=== PATIENT | female | born 1970 | race Caucasian/White ===

== ENCOUNTER 2023-06-11 10:29 | Outpatient (OUT) | payer BC, SELFPAY ==
[2023-06-11 10:55] LABS: Basophils Percent Auto 1.1 % (0.2-2.0); Hematocrit 38.6 % (36.0-48.0); Hemoglobin 12.4 g/dL (12.0-16.0); Immature Granulocytes Abs Auto 0.01 10^3/uL (0.00-0.03); Immature Granulocytes Pct Auto 0.3 % (0.0-0.5); Lymphocytes Absolute Auto 1.7 10^3/uL (1.2-3.8); Lymphocytes Percent Auto 46.5 % (20.5-60.0); Mean Corpuscular HGB Conc 32.1 g/dL (29.9-35.2); Mean Corpuscular Hemoglobin 27.3 pg (26.7-34.0); Mean Platelet Volume 10.1 fL (9.5-13.5); Monocytes Absolute Auto 0.3 10^3/uL (0.3-0.8); Monocytes Percent Auto 8.9 % (1.7-12.0); Neutrophils Absolute Auto 1.6 10^3/uL (1.4-6.5); Neutrophils Percent Auto 43.2 % (43.0-75.0); Platelet Count 239 10^3/uL (150-450); Red Blood Count 4.54 10^6/uL (4.20-5.40); Red Cell Distribution Width 13.2 % (11.0-15.0); White Blood Count 3.7 10^3/uL (4.0-11.0)
[2023-06-11 12:09] LABS: Alanine Aminotransferase 33 U/L (14-59); Albumin Globulin Ratio 1.1; Albumin Level 3.7 g/dL (3.4-5.0); Alkaline Phosphatase 83 U/L (46-116); Anion Gap 11.2; Aspartate Amino Transferase 14 U/L (15-37); BUN Creatinine Ratio 26.2; Bilirubin Total 0.3 mg/dL (0.2-1.0); Calcium 8.9 mg/dL (8.5-10.1); Carbon Dioxide 31.2 mmol/L (21.0-32.0); Chloride 104 mmol/L (98-107); Cholesterol 159 mg/dL (<=200); Estimated GFR (African America >60 (>=60); Estimated GFR (Non-African Ame >60 (>=60); Free T3 3.42 pg/mL (2.18-3.98); Globulin 3.4 g/dL; Glucose 95 mg/dL (74-106); HDL Cholesterol 80 mg/dL (40-60); Potassium 4.4 mmol/L (3.5-5.1); Sodium 142 mmol/L (136-145); Thyroid Stimulating Hormone <0.007 uIU/mL (0.358-3.740); Total Protein 7.1 g/dL (6.4-8.2); Triglycerides 34 mg/dL (<=150); VLDL CHOLESTEROL 6.8 mg/dL
[2023-06-11 13:55] LABS: Estimated Average Glucose 117 mg/dL; Glycohemoglobin A1C 5.7 % (4.5-6.2)
== END 2023-06-11 10:30 | disposition home or self-care (01) ==
LOC: LAB 10:32
PROVIDERS: PCP Family Medicine; Visit Provider Family Medicine
DX: M79.10 Myalgia, unspecified site (principal)
CPT/HCPCS: 36415; 80053; 80061; 83036; 84436; 84443; 84481; 85025

== ENCOUNTER 2023-06-25 11:29 | Outpatient (OUT) | payer BC, SELFPAY ==
--- OUTSIDE RECORDS SUMMARY | 2023-06-25 11:33 | XMS_ITS | CCD ---
Author Name Unknown Address [address] [facility] [address] [place] [address] Organization [facility] Care Team Providers Care Blocker And Cutter Contact Lens Name Role Phone Gina Javier MD Primary Care Provider GINA JAVIER Primary Care Unavailable GINA JAVIER Referring Unavailable ELIAS, MEJIA H. Admitting Unavailable ELIAS, MEJIA H. Attending Unavailable ELIAS, MEJIA H. Attending Unavailable ELIAS, MEJIA H. Referring Unavailable GINA JAVIER Primary Care Unavailable GINA JAVIER Primary Care Unavailable ELIAS, MEJIA H. Referring Unavailable Gina Javier Primary Care Physician Santiago Cano Unavailable Sawyer Greer Unavailable MD Gina Javier Primary Care Provider MD Sawyer Greer Attending Provider DR GINA AVALOS Consulting Unavailable HOY ., DR FUENTES Primary Care Unavailable HOY ., DR FUENTES Admitting Unavailable HOY ., DR FUENTES Attending Unavailable ALE, DR IRENE Randolph Consulting Unavailable HOY ., DR FUENTES Primary Care Unavailable HOY ., DR FUENTES Admitting Unavailable HOY ., DR FUENTES Attending Unavailable HOY ., DR FUENTES Consulting Unavailable HOY ., DR FUENTES Primary Care Unavailable HOY ., DR FUENTES Admitting Unavailable HOY ., DR FUENTES Attending Unavailable BUZZ, DR ALE Sheppard Consulting Unavailable HOY ., DR FUENTES Consulting Unavailable HOY ., DR FUENTES Primary Care Unavailable HOY ., DR FUENTES Admitting Unavailable HOY ., DR FUENTES Attending Unavailable BUZZ, DR ALE Sheppard Consulting Unavailable HOY ., DR FUENTES Consulting Unavailable HOY ., DR FUENTES Primary Care Unavailable HOY ., DR FUENTES Admitting Unavailable HOY ., DR FUENTES Attending Unavailable Hoy, MD Gina M Primary Care Provider [phone] MD Edison Veronica II Attending Provider Edison Veronica II Unavailable MD Gina Javier Primary Care Provider [phone] MD Edison Veronica II Attending Provider [phone] MD Gina Javier Primary Care Provider [phone] MD Edison Veronica II Attending Provider [phone] Sawyer Greer Attending Unavailable Gina Javier Primary Care Unavailable Sawyer Greer Admitting Unavailable [place] II, Edison Teran Attending Unavailabl e Jeremías ERIKA, Edison Teran Admitting Unavailabl e Gina Javier Primary Care Unavailable [place] II, Edison Teran Admitting Unavailabl e Gina Javier Primary Care Unavailable [place] II, Edison Teran Attending Unavailabl e Gina Javier Primary Care Unavailable Jeremías II, Edison Teran Attending Unavailabl e Jeremías II, Edison Teran Admitting Unavailabl e [place] II, Edison Teran Admitting Unavailabl e Gina Javier Primary Care Unavailable [place] II, Edison Teran Attending Unavailabl e Jeremías II, Edison Teran Admitting Unavailabl e Gina Javier Primary Care Unavailable [place] II, Edison Teran Attending Unavailabl e Gina Javier Primary Care Unavailable [place] II, Edison Teran Admitting Unavailabl e Jeremías II, Edison Teran Attending Unavailabl e Gina Javier Primary Care Unavailable [place] ERIKA, Edison Teran Admitting Unavailabl e [place] II, Edison Teran Attending Unavailabl e Allergies Allergy Classification Reported Allergen(s) Allergy Type Date of Onset Reaction(s) Facility grepafloxacin (3 sources) grepafloxacin Drug Allergy 1 [employer] [facility] (10 sources) grepafloxacin; Translations: [grepafloxacin] Drug Allergy 1 Skin reaction (observable entity) General Surgery [place] (2 sources) grepafloxacin Drug Allergy [facility] (6 sources) Adhesive Tape; Translations: [adhesive tape] Propensity to adverse reactions 3 Itching [facility] (1 source) grepafloxacin Drug Allergy 3 [facility] Repository Medications Current Medications Medication Drug Class(es) Dates Sig (Normalized) Sig (Original) acetaminophen 325 mg / oxyCODONE hydrochloride 7.5 mg oral tablet (3 sources) Opioid Agonist Start: 11-19-2020 End: 12-30-2020 take 1 tablet by mouth every four hours as needed for pain oxyCODONE-acetami nophen (PERCOCET) 7.5-325 MG per tablet Indications: Post-op pain Take 1 tablet by mouth every 4 hours as needed for Pain for up to 41 days. 28 tablet 0 11/19/2020 12/30/2020 Active Start: 11-18-2020 take 1 tablet by demetrice th every six hours as needed for pain 1 tablet, Oral, EVERY 6 HOURS PRN, Pain Moderate (4-6), Starting on Tue11/18/20 at 1633 Maximum dose of acetaminophen is 4000 mg from all sources in 24 hours. ALPRAZolam 0.5 mg oral tablet (3 sources) Benzodiazepine Start: 08-24-2022 Xanax 0.5 MG 1 tablet 30 minutes prior to MRI and one tab at time of MRI as needed Orally as ordered August, Active amoxicillin 500 mg oral tablet (1 source) Penicillin-class Antibacterial Start: 03-17-2023 take 4 tablets by mouth every hour Amoxicillin 500 MG 4 tablets Orally 1 hour prior to procedure for 1 days Feb, Active aspirin 81 mg delayed release oral tablet (6 sources) Platelet Aggregation Inhibitor, Nonsteroidal Anti-inflammatory Drug Start: 01-27-2023 take 1 tablet by mouth every twelve hours Aspirin 81 81 MG 1 tablet Orally Twice a day for 35 days MED TO BED UPON DISCHARGE DOS: 01/31/23 Jan, Active Start: 01-27-2023 take 1 tablet by demetrice th twice daily Aspirin 81 81 MG 1 tablet Orally Twice a day for 35 days MED TO BED UPON DISCHARGE DOS: 01/31/23 Jan, Active atorvastatin 10 mg oral tablet (1 source) HMG-CoA Reductase Inhibitor Start: 11-18-2020 take 10 mg by mouth once daily 10 mg, Oral, NIGHTLY, First dose on Tue11/18/20 at 2100 Substituted for Simvastatin (ZOCOR). biotin 10 mg oral capsule (5 sources) Start: 01-20-2023 take 08883 ug by mouth once daily Biotin Active 19654 MCG PO Daily January 19, 2023 11:00pm ceFAZolin (ANCEF) 2000 mg in dextrose 5 % 100 mL IVPB (1 source) Start: 11-18-2020 End: 11-19-2020 2,000 mg, Intravenous, EVERY 8 HOURS, 3 doses, First dose on Tue11/18/20 at 1815, Last dose on Tue11/19/20 at 1200, Post-op cephalexin 500 mg oral capsule (3 sources) Cephalosporin Antibacterial Start: 11-19-2020 End: 11-26-2020 take 1 capsule by mouth every eight hours cephALEXin (KEFLEX) 500 MG capsule Take 1 capsule by mouth every 8 hours for 20 doses 20 capsule 0 11/19/2020 11/26/2020 Active Start: 11-19-2020 End: 11-25-2020 take 1 dose by mouth three times daily 500 mg, Oral, EVERY 8 HOURS SCHEDULED (3 times per day), First dose on Tue11/19/20 at 0600, For 20 doses diazePAM 5 mg oral tablet (20 sources) Benzodiazepine Start: 11-18-2020 End: 11-24-2020 take 1 tablet by mouth every six hours as needed for muscle spasms diazePAM (VALIUM) 5 MG tablet Indications: Muscle spasm Take 1 tablet by mouth every 6 hours as needed (Muscle spasms) for up to 5 days. 20 tablet 0 11/19/2020 11/24/2020 Active diazePAM 10 MG O ral for 1 Days Not-Taking/PRN diclofenac sodium 75 mg delayed release oral tablet (18 sources) Nonsteroidal Anti-inflammatory Drug Start: 01-20-2023 take 75 mg by mouth twice daily Diclofenac Sodium Active 75 MG PO Twice daily January 19, 2023 11:00pm doxepin hydrochloride 10 mg oral capsule (5 sources) Tricyclic Antidepressant Start: 01-20-2023 take 10 mg by mouth once daily at bedtime Doxepin Active 10 MG PO Daily at bedtime January 19, 2023 11:00pm 250 ml glucose 50 mg/ml / sodium chloride 4.5 mg/ml injection (1 source) Start: 11-18-2020 Intravenous, at 100 mL/hr, CONTINUOUS, Starting on Tue11/18/20 at 1815, Post-op 1 ml HYDROmorphone hydrochloride 1 mg/ml cartridge (2 sources) Opioid Agonist Start: 11-18-2020 End: 11-18-2020 take 0.5 mg by mouth every four hours as needed for pain 0.5 mg, Intravenous, EVERY 4 HOURS PRN, Pain Moderate (4-6), Starting on Tue11/18/20 at 1747 If oral and IV narcotics ordered, use oral first and only use IV if oral is ineffective or cannot take oral. Do Not give oral and IV within 1 hour of each other unless specifically ordered. irbesartan 150 mg oral tablet (20 sources) Angiotensin 2 Receptor Phill Start: 06-08-2021 take 150 mg by mouth once daily in the morning Irbesartan Active 150 MG PO Every morning January 19, 2023 11:00pm lansoprazole 30 mg Cap-DR (2 sources) Start: 06-08-2021 take 1 capsule by mouth once daily lansoprazole 30 mg Cap-DR 30 mg = 1 cap(s), Oral, Daily, Refills(s) 0 Start Date: 06/08/21 Status: Ordered losartan potassium 25 mg oral tablet (1 source) Angiotensin 2 Receptor Phill Start: 11-18-2020 take 25 mg by mouth once daily 25 mg, Oral, DAILY, First dose on Tue11/18/20 at 1815 Substituted for Irbesartan (AVAPRO). meloxicam 15 mg oral tablet (17 sources) Nonsteroidal Anti-inflammatory Drug Start: 02-01-2022 take 1 tablet by mouth every twenty-four hours Meloxicam 15 MG 1 tablet Orally Once a day for 30 day(s) Jan, Active Multiple Vitamins-Minerals (THERAPEUTIC MULTIVITAMIN-MINERA LS) tablet (2 sources) take 1 tablet by mouth once daily Multiple Vitamins-Minerals (THERAPEUTIC MULTIVITAMIN-MINE RALS) tablet Take 1 tablet by mouth daily 0 Active take 1 tablet by mouth once susan y Multiple Vitamins-Minerals (THERAPEUTIC MULTIVITAMIN-MINERALS) tablet Take 1 tablet by mouth daily 0 Suspended Multivitamin preparation (5 sources) Start: 01-20-2023 take 1 tablet by mouth once daily Multivitamin Active 1 TAB PO Daily January 19, 2023 11:00pm Start: 01-20-2023 take 1 tablet by demetrice th once daily Multivitamin Active 1 TAB PO Daily January 20, 2023 12:00am Promethazine (1 source) Phenothiazine Start: 11-18-2020 promethazine (PHENERGAN) tablet 12.5 mg Provitalize (5 sources) Start: 01-20-2023 take 1 dose by mouth once daily Provitalize Active 1 DOSE PO Daily January 19, 2023 11:00pm Start: 01-20-2023 take 1 dose by mouth once susan y Provitalize Active 1 DOSE PO Daily January 20, 2023 12:00am simvastatin 20 mg oral tablet (20 sources) HMG-CoA Reductase Inhibitor Start: 06-08-2021 take 20 mg by mouth once daily in the morning Simvastatin Active 20 MG PO Every morning January 19, 2023 11:00pm 3 ml sodium chloride 9 mg/ml injection (3 sources) Start: 11-18-2020 take 1 dose intravenously twice daily 5-40 mL, Intravenous, EVERY 12 HOURS SCHEDULED (2 times per day), First dose on Tue11/18/20 at 2100 For Line Patency: Peripheral IV = 5 mL; Midline or Central Line = 10 mL/lumen. &n bsp;If following IV push medication, administer flush at same rate as the IV push. Flush volume is determined by type of infusion therapy being given. &nbsp ;For non-viscous solutions use: Periphe ral IV = 5 mL Midline or Central Line = 10 mL/lumen &nb sp;For viscous solutions (i.e. blood components, parenteral nutrition, contrast media, or after obtaining blood sample) use: Periphe ral IV = 10 mL Midline or Central Line = 20 mL/lumen Post-op Start: 11-18-2020 take 25 mL intraveno usly every hour as needed 25 mL, Intravenous, at 100 mL/hr, PRN, If patient receiving piggyback infusions without ordered maintenance IV fluids or with frequent/long duration piggyback infusions, Starting on Tue11/18/20 at 1747 Administer at the same rate as the piggyback being infused. Post-op Start: 11-18-2020 take 5-40 mL intravenously onc e 5-40 mL, Intravenous, PRN, Line Care, Starting on Tue11/18/20 at 1747 After every IV line use Post-op SUMAtriptan 100 mg oral tablet (20 sources) Serotonin-1b and Serotonin-1d Receptor Agonist Start: 06-08-2021 take 1 tablet by mouth once Sumatriptan Succinate (Imitrex) 100 mg Tablet Active 100 MG PO Once January 19, 2023 11:00pm Tirzepatide (5 sources) Start: 01-20-2023 Tirzepatide (Mounjaro) 5 mg/0.5 mL pen injector Active 5 MG SUBCUT every week January 19, 2023 11:00pm tuesdays Start: 01-20-2023 Tirzepatide (M ounjaro) 5 mg/0.5 mL pen injector Active 5 MG SUBCUT every week January 20, 2023 12:00am tuesdays Completed/Discontinued Medications Medication Drug Class(es) Dates Sig (Normalized) Sig (Original) 0.5 ML tirzepatide 5 MG/ML Auto-Injector [Mounjaro] (11 sources) Mounjaro 2.5 MG/ 0.5ML as directed Subcutaneous Not-Taking Mounjaro 2.5 MG/ 0.5ML as directed Subcutaneous Active acetaminophen 500 mg oral tablet (20 sources) Start: 01-27-2023 take 2 tablets by mouth every eight hours as needed for pain Acetaminophen 500 MG 2 tablets for pain Orally every 8 hrs for 30 days MED TO BED UPON DISCHARGE DOS: 01/31/23 Jan, Not-Taking/PRN Start: 01-20-2023 take 2 capsules by m out every six hours Acetaminophen (Tylenol Extra Strength) 500 mg Capsule Active 1000 MG PO Q6H January 19, 2023 11:00pm take 1 capsule by mo ut every six hours Acetaminophen 500 MG 1 capsule as needed Orally every 6 hrs Active take 2 tablets by mo ut every six hours as needed for pain acetaminophen (TYLENOL) 500 MG tablet Take 1,000 mg by mouth every 6 hours as needed for Pain 0 Active calcium chloride 0.0014 meq/ml / potassium chloride 0.004 meq/ml / sodium chloride 0.103 meq/ml / sodium lactate 0.028 meq/ml injectable solution (1 source) Start: 11-18-2020 End: 11-18-2020 lactated ringers infusion cefadroxil 500 mg oral capsule (6 sources) Cephalosporin Antibacterial Start: 01-27-2023 take 1 capsule by mouth every twelve hours Cefadroxil 500 MG 1 tablet Orally every 12 hrs for 7 days MED TO BED UPON DISCHARGE DOS: 01/31/23 Jan, Not-Taking/PRN celecoxib 200 mg oral capsule (6 sources) Nonsteroidal Anti-inflammatory Drug Start: 01-27-2023 take 1 capsule by mouth every twelve hours Celecoxib 200 MG 1 capsule with food Orally Twice a day for 30 days MED TO BED UPON DISCHARGE DOS: 01/31/23 Jan, Not-Taking/PRN docusate sodium 50 mg / sennosides, jail 8.6 mg oral tablet (9 sources) Start: 01-27-2023 take 2 tablets by mouth every twenty-four hours Senokot S 8.6-50 MG 2 tablets Orally Once a day for 30 days MED TO BED UPON DISCHARGE DOS: 01/31/23 Jan, Not-Taking/PRN Start: 11-18-2020 End: 11-29-2020 take 1 tablet by mouth twice daily sennosides-docusate sodium (SENOKOT-S) 8.6-50 MG tablet Take 1 tablet by mouth 2 times daily for 10 days 20 tablet 0 11/19/2020 11/29/2020 Active 2 ml fentaNYL 0.05 mg/ml injection (1 source) Opioid Agonist Start: 11-18-2020 End: 11-18-2020 fentaNYL (SUBLIMAZE) injection 50 mcg lansoprazole 30 mg delayed release oral capsule (20 sources) Proton Pump Inhibitor Lansoprazole 30 MG Oral for 90 Days Not-Taking/PRN LANSOPRAZOLE PO Take 30 mg by mouth 0 Active methylPREDNISolone 4 mg oral tablet (5 sources) Corticosteroid Start: 02-10-2023 methylPREDNISolone 4 MG as directed Orally for 6 days Jan, Not-Taking/PRN morphine sulfate 15 mg extended release oral tablet (6 sources) Opioid Agonist Start: 01-27-2023 take 1 tablet by mouth every twelve hours as needed for pain Morphine Sulfate ER 15 MG 1 tablet for breakthrough pain only Orally every 12 hrs for 5 days MED TO BED UPON DISCHARGE DOS: 01/31/23 Jan, Not-Taking/PRN mounjaro 2.5 mg/0.5ml solution pen-injector (1 source) Mounjaro 2.5 MG/ 0.5ML as directed Subcutaneous Not-Taking/PRN ondansetron 8 mg oral tablet (6 sources) Serotonin-3 Receptor Antagonist Start: 01-27-2023 take 1 tablet by mouth three times daily as needed for nausea Ondansetron HCl 8 MG 1 tablet as needed for nausea Orally Three times a day for 10 days MED TO BED UPON DISCHARGE DOS: 01/31/23 Jan, Not-Taking/PRN oxyCODONE hydrochloride 5 mg oral tablet (6 sources) Opioid Agonist Start: 01-27-2023 take 1 tablet by mouth every four hours as needed for pain oxyCODONE HCl 5 MG 1 tablet as needed for pain Orally every 4 hrs for 10 days MED TO BED UPON DISCHARGE DOS: 01/31/23 Jan, Not-Taking/PRN pantoprazole 20 mg delayed release oral tablet (6 sources) Proton Pump Inhibitor Start: 01-27-2023 take 1 tablet by mouth every twenty-fou r hours Protonix 20 MG 1 tablet Orally Once a day for 35 days MED TO BED UPON DISCHARGE DOS: 01/31/23 Jan, Not-Taking/PRN phentermine hydrochloride 37.5 mg oral capsule (12 sources) Sympathomimetic Amine Anorectic take 1 capsule by mouth every twenty-fou r hours Adipex-P 37.5 MG 1 capsule Orally Once a day Not-Taking/PRN polyethylene glycol 3350 79192 mg powder for oral solution (7 sources) Osmotic Laxative Start: 01-27-2023 MiraLax 17 GM 1 packet mixed with 8 ounces of fluid Orally Once a day for 7 days MED TO BED UPON DISCHARGE DOS: 01/31/23 Jan, Not-Taking/PRN Start: 11-18-2020 17 g, Oral, DA AMBROSE, First dose on Tue11/18/20 at 1815, Post-op traMADol hydrochloride 50 mg oral tablet (15 sources) Opioid Agonist Start: 01-27-2023 take 1 tablet by mouth every six hours as needed for pain traMADol HCl 50 MG 1 tablet as needed for pain Orally every 6 hrs for 10 days MED TO BED UPON DISCHARGE DOS: 01/31/23 Jan, Not-Taking/PRN Start: 12-16-2022 take 1 tablet by demetrice th twice daily as needed traMADol HCl 50 MG 1 tablet as needed Orally up to twice daily as needed for 15 days Nov, Not-Taking/PRN Problems Active Problems Problem Classification Problem Date Documented Date Episodic/Chronic Abdominal hernia (8 sources) Inguinal hernia; Translations: [Unilateral inguinal hernia, without obstruction or gangrene, not specified as recurrent] Onset: 07-10-2021 Episodic Anxiety disorders (2 sources) Anxiety 06-08-2021 Chronic Asthma (2 sources) Asthma 06-08-2021 Chronic Diabetes mellitus without complication (2 sources) Diabetes mellitus 06-08-2021 Chronic Disorders of lipid metabolism (2 sources) Hyperlipidemia 06-08-2021 Chronic Essential hypertension (2 sources) Hypertensive disorder 06-08-2021 Chronic Headache; including migraine (2 sources) Migraine without aura 06-08-2021 Chronic Osteoarthritis (20 sources) Arthropathy of left hip joint; Translations: [Unilateral primary osteoarthritis, left hip] Chronic Osteoporosis (9 sources) Primary osteoporosis; Translations: [Age-related osteoporosis without current pathological fracture] Onset: 12-24-2022 Chronic Other aftercare (5 sources) Patient encounter status; Translations: [Aftercare following joint replacement surgery] Chronic Other aftercare (4 sources) Aftercare following joint replacement surgery Chronic Other connective tissue disease (5 sources) Hip joint prosthesis present; Translations: [Presence of left artificial hip joint] Chronic Other connective tissue disease (5 sources) History of total hip arthroplasty; Translations: [Presence of left artificial hip joint] Chronic Other connective tissue disease (9 sources) Presence of left artificial hip joint; Translations: [Presence of left artificial hip joint] Onset: 03-17-2023 Chronic Other connective tissue disease (1 source) Spasm; Translations: [Other muscle spasm] Episodic Other connective tissue disease (18 sources) Trochanteric bursitis; Translations: [Trochanteric bursitis, left hip] Episodic Other connective tissue disease (6 sources) Trochanteric bursitis, left hip Episodic Other connective tissue disease (1 source) Arthrodesis status Episodic Other nervous system disorders (3 sources) Spinal cord compression; Translations: [Unspecified cord compression] Onset: 11-18-2020 Chronic Other nervous system disorders (17 sources) Chronic pain; Translations: [Other chronic pain] Chronic Other nervous system disorders (6 sources) Other chronic pain Chronic Other nervous system disorders (1 source) Postoperative pain ; Translations: [Other acute postprocedural pain] Episodic Other non-traumatic joint disorders (14 sources) Arthralgia of the pelvic region and thigh; Translations: [Pain in left hip] Episodic Other non-traumatic joint disorders (4 sources) Pain in left hip Episodic Other nutritional; endocrine; and metabolic disorders (2 sources) Body mass index 30+ - obesity 06-10-2021 Chronic Other screening for suspected conditions (not mental disorders or infectious disease) (4 sources) Encounter for screening mammogram for malignant neoplasm of breast; Translations: [ENC SCR MAMMO MALIG NEOPLASM BREAST] Onset: 09-09-2022 Episodic Other skin disorders (2 sources) Alopecia areata 06-08-2021 Episodic Residual codes; unclassified (2 sources) Sleep apnea 06-08-2021 Chronic Residual codes; unclassified (2 sources) Pain; Translations: [Pain, unspecified] Episodic Residual codes; unclassified (1 source) Family history of leukemia; Translations: [FAMILY HISTORY OF LEUKEMIA] Onset: 09-12-2022 Episodic Spondylosis; intervertebral disc disorders; other back problems (20 sources) Cervical spondylosis with myelopathy; Translations: [Other spondylosis with myelopathy, cervical region] Onset: 11-27-2021 Chronic Unclassified (1 source) Presence of left artificial hip joint; Translations: [Presence of left artificial hip joint] Onset: 04-20-2023 Unclassified (1 source) Aftercare following joint replacement surgery; Translations: [Aftercare following joint replacement surgery] Onset: 03-17-2023 Unclassified (1 source) Encounter for preprocedural laboratory examination; Translations: [Encounter for preprocedural laboratory examination] Onset: 01-20-2023 Unclassified (1 source) Unilateral primary osteoarthritis, left hip; Translations: [Unilateral primary osteoarthritis, left hip] Onset: 12-24-2022 Unclassified (1 source) Pain in left hip; Translations: [Pain in left hip] Onset: 09-03-2022 Past or Other Problems Problem Classification Problem Date Documented Da te Episodic/Chronic Other aftercare (2 sources) Other halfway (current) drug therapy; Translations: [Other halfway (current) drug therapy] Onset: 12-24-2022 Episodic Spondylosis; intervertebral disc disorders; other back problems (8 sources) Spinal stenosis in cervical region; Translations: [Spinal stenosis, cervical region] Onset: 12-24-2021 Episodic Unclassified (1 source) Other low back pain M54.59 Results Test Name Value Interpretation Reference Range Facility XR hip LT min 2V(w/wo pelvis )*on 04-20-2023 XR hip LT min 2V(w/wo pelvis)* [facility] Other XR hip LT min 2V(w/wo pelvis)* [facility] Other XR hip LT min 2V(w/wo pelvis)* [address] [place] [address] [facility] Other XR hip LT min 2V(w/wo pelvis)* [place] [id number] [facility] Other XR hip LT min 2V(w/wo pelvis)* XRay Report [facility] Other XR hip LT min 2V(w/wo pelvis)* Signed [facility] Other XR hip LT min 2V(w/wo pelvis)* Patient: Ana Palmer MR#: [id number] [facility] Other XR hip LT min 2V(w/wo pelvis)* : 1970 Acct:[id number] [facility] Other XR hip LT min 2V(w/wo pelvis)* Age/Sex: 52 / F ADM Date: 04/20/23 [facility] Other XR hip LT min 2V(w/wo pelvis)* Loc: [facility] Room: Type: [facility] Other XR hip LT min 2V(w/wo pelvis)* Attending Dr: Edison Veronica II, MD [facility] Other XR hip LT min 2V(w/wo pelvis)* Copies to: Edison Veronica MD [facility] Other XR hip LT min 2V(w/wo pelvis)* Ordering Provider: Edison Veronica MD [facility] Other XR hip LT min 2V(w/wo pelvis)* Date of Service: 04/20/23 [facility] Other XR hip LT min 2V(w/wo pelvis)* XR/XR hip LT min 2V(w/wo pelvis)*: S/P total left hip arthroplasty [facility] Other XR hip LT min 2V(w/wo pelvis)* AP PELVIS AND LEFT HIP - 2 views: [facility] Other XR hip LT min 2V(w/wo pelvis)* CLINICAL HISTORY: Follow-up left hip replacement [facility] Other XR hip LT min 2V(w/wo pelvis)* COMPARISON: 03/17/2023 [employer] Other XR hip LT min 2V(w/wo pelvis)* AP view of the pelvis and crosstable lateral view of the left hip were obtained. A left hip [facility] Other XR hip LT min 2V(w/wo pelvis)* prosthesis is again visualized. The hardware appears intact and unchanged from the prior. There is [facility] Other XR hip LT min 2V(w/wo pelvis)* no developing fracture or dislocation. There is minor sclerosis at the SI joints. There are no [facility] Other XR hip LT min 2V(w/wo pelvis)* significant soft tissue abnormalities. [facility] Other XR hip LT min 2V(w/wo pelvis)* XR/XR hip LT min 2V(w/wo pelvis)* [facility] Other XR hip LT min 2V(w/wo pelvis)* IMPRESSION: [facility] Other XR hip LT min 2V(w/wo pelvis)* STABLE LEFT HIP REPLACEMENT [facility] Other XR hip LT min 2V(w/wo pelvis)* Impression dictated by: Radha Godinez M.D.04/20/2023 11:47 AM [facility] Other XR hip LT min 2V(w/wo pelvis)* Dictation Location: [place] [address] [facility] Other XR hip LT min 2V(w/wo pelvis)* Transcribed By: SAAD 04/20/23 1147 [facility] Other XR hip LT min 2V(w/wo pelvis)* Dictated By: Radha Godinez MD 04/20/23 114 [facility] Other XR hip LT min 2V(w/wo pelvis)* Signed By: [facility] Other XR hip LT min 2V(w/wo pelvis)* 04/20/23 1145 [facility] Other XR hip LT min 2V(w/wo pelvis)* [place] [facility] Main [place] [address] [place] [address] XRay Report Signed Patient: Ana Palmer MR#: [id number] : 1970 Acct:[id number] Age/Sex: 52 / F ADM Date: 04/20/23 Loc: [facility] Room: Type: [facility] Attending Dr: Edison Veronica II, MD Copies to: Edison Veronica MD Ordering Provider: Edison Veronica MD Date of Service: 04/20/23 XR/XR hip LT min 2V(w/wo pelvis)*: S/P total left hip arthroplasty AP PELVIS AND LEFT HIP - 2 views: CLINICAL HISTORY: Follow-up left hip replacement COMPARISON: 03/17/2023 AP view of the pelvis and crosstable lateral view of the left hip were obtained. A left hip prosthesis is again visualized. The hardware appears intact and unchanged from the prior. There is no developing fracture or dislocation. There is minor sclerosis at the SI joints. There are no significant soft tissue abnormalities. XR/XR hip LT min 2V(w/wo pelvis)* IMPRESSION: STABLE LEFT HIP REPLACEMENT Impression dictated by: Radha Godinez M.D.04/20/2023 11:47 AM Dictation Location: RADIO-PC-10 Transcribed By: SAAD 04/20/23 1147 Dictated By: Radha Godinez MD 04/20/23 1146 Signed By: 04/20/23 1147 [facility] XR hip LT min 2V(w/wo pelvis )*on 03-17-2023 XR hip LT min 2V(w/wo pelvis)* [facility] [place] [address] XRay Report Signed Patient: Ana Palmer MR#: [id number] : 1970 Acct:[id number] Age/Sex: 52 / F ADM Date: 03/17/23 Loc: [facility] Room: Type: [facility] Attending Dr: Edison Veronica II, MD Copies to: Edison Veronica MD Ordering Provider: Edison Veronica MD Date of Service: 03/17/23 XR/XR hip LT min 2V(w/wo pelvis)*: Aftercare following joint replacement surgery;Presence of le 2 views left hip with single view pelvis plain film COMPARISON: 01/31/2023 HISTORY: Status post left total hip arthroplasty ACUTE FINDINGS: None DEGENERATIVE CHANGE: Unremarkable SOFT TISSUE FINDINGS: Unremarkable JOINT EFFUSION: None POSTOP CHANGES: Uncomplicated left hip arthroplasty. No hardware failure. BONY MINERALIZATION: Adequate XR/XR hip LT min 2V(w/wo pelvis)* IMPRESSION: Uncomplicated left hip arthroplasty. Impression dictated by: Wes Serrano M.D.03/17/2023 1:05 PM Dictation Location: RADIO-PC-12 Transcribed By: SAAD 03/17/23 1305 Dictated By: Wes Serrano DO 03/17/23 1304 Signed By: 03/17/23 1305 [facility] ABO/Rh Retypeon 01-31-2023 ABO/RH Recheck Result Positive Normal [facility] Comment on above: Result Comment: PERF ORMED BY: [address] [place] [address] JUDGE ERIC ABDI M.D. Glucose Glucometer (BldC) [M ass/Vol]Ordered By: Edison Veronica on 01-31-2023 Glucose [Mass/Vol] 179 mg/dL [facility] Comment on above: Random Glucose Refer ence Range is dependent on time and content of last meal. Glucose of more than 200 mg/dL in a nonstressed, ambulatory subject supports the diagnosis of Diabetes Mellitus. Glucose Poct Glucometerson 1 Glucose [Mass/Vol] 179 mg/dL Normal [facility] Comment on above: Result Comment: [facility] om Glucose Reference Range is dependent on time and content of last meal. Glucose of more than 200 mg/dL in a nonstressed, ambulatory subject supports the diagnosis of Diabetes Mellitus. PERFORMED BY: [facility] [address] [facility] [place] [address] JUD[address] ERIC ABDI M.D. Performed By: #### G RIA ####Point of Care testing, Cristóbal 01-31-2023 L ------ Specimen: [id number] Received: 02/01/23 Status: ABRAN Kev Num: [id number] Spec Type: Surgical Subm Dr: Edison Veronica MD Tissues: A Femoral Head - Other than Fracture (LT HIP) Procedures: HE/2, Gross/Micro L3, Decalcification Age/ Patient Sex Location Account Attending Physician Ana Palmer 52/F MD [id number] Edison Veronica MD SPEC NUM: [id number] RECD: 02/01/23 STATUS: ABRAN ANGULO NUM: [id number] CHANO: 01/31/23 [facility] DR: Edison Veronica MD ENTERED: 02/01/[address]: BRITTON TYPE: Surgical DEPT: S ORDERED: HE/2, Gross/Micro L3, Decalcification ORDERED: HE/2, Gross/Micro L3, Decalcification Pathological Diagnosis Left hip, bone and tissue, total hip arthroplasty: - Bone trabeculae and marrow spaces with areas of necrosis, granulation tissue, fibrosis and degenerative changes - Focal areas of reactive bone formation - Cartilage with degenerative changes Clinical Information DJD left hip, 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 The femoral head has a smooth to granular leavitt-hernández articular surface from which articular cartilage has been previously partially removed. The cut surface is softened, leavitt-red, trabecular. Chief Construction Inspector sections are submitted in two cassettes labeled A1-A2. Specimen: [id number] Received: 02/01/23 Status: ABRAN Angulo Num: [id number] Spec Type: Surgical Subm Dr: Edison Veronica MD Tissues: A Femoral Head - Other than Fracture (LT HIP) Procedures: HE/2, Gross/Micro L3, Decalcification Patient: Ana Palmer Jeffry [id number] (Continued) Specimen: [id number] Received: 02/01/23 (Continued) Signed (signature on file) Luiz Degroot MD 02/03/23 1349 Specimen: [id number] Received: 02/01/23 Status: ABRAN Angulo Num: [id number] Spec Type: Surgical Subm Dr: Edison Veronica MD Tissues: A Femoral Head - Other than Fracture (LT HIP) Procedures: HE/2, Gross/Micro L3, Decalcification Patient: Ana Palmer [id number] (Continued) Specimen: [id number] Received: 02/01/23 (Continued) Microscopic Description Two H E slides reviewed. The microscopic examination confirms the diagnosis. CPT Codes 27386, 15232 Specimen: [id number] Received: 02/01/23 Status: ABRAN Angulo Num: [id number] Spec Type: Surgical Subm Dr: Edison Veronica MD Tissues: A Femoral Head - Other than Fracture (LT HIP) Procedures: HE/2, Gross/Micro L3, Decalcification Patient: Ana Palmer [id number] (Continued) Signed (signature on file) Luiz Degroot MD 02/03/23 1349 [facility] XR hip LT 1Von 01-31-2023 XR hip LT 1V [place] [address] XRay Report Signed Patient: Ana Palmer MR#: [id number] : 1970 Acct:[id number] Age/Sex: 52 / F ADM Date: 01/31/23 Loc: MD Room: Type: [facility] Attending Dr: Edison Veronica II, MD Copies to: Edison Veronica MD Ordering Provider: Edison Veronica MD Date of Service: 01/31/23 XR/XR hip LT 1V: LT ANTIEROR HIP XR hip LT 1V 01/31/2023 3:50 PM SIGNS AND SYMPTOMS: Left hip arthroplasty PROTOCOL: Intraoperative views of the left hip COMPARISON: 01/31/2023 FINDINGS: Intraoperative views demonstrate total left hip arthroplasty hardware placement. Cumulative Air Kerma in mGy: 3.78 mGy XR/XR hip LT 1V IMPRESSION: Intraoperative views demonstrate total left hip arthroplasty hardware placement. Impression dictated by: Reggie Vallejo M.D.01/31/2023 5:14 PM Dictation Location: RADIO--07 Transcribed By: SAAD 01/31/231713 Dictated By: Reggie Vallejo II, MD 01/31/231711 Signed By: 01/31/231713 Normal [facility] XR low pelvis w/LT x-table h ipon 01-31-2023 XR low pelvis w/LT x-table hip [facility] [place] [address] XRay Report Signed Patient: Ana Palmer MR#: [id number] : 1970 Acct:[id number] Age/Sex: 52 / F ADM Date: 01/31/23 Loc: MD Room: Type: [facility] Attending Dr: Edison Veronica II, MD Copies to: Edison Veronica MD Ordering Provider: Edison Veronica MD Date of Service: 01/31/23 XR/XR low pelvis w/LT x-table hip: Total Hip, due in PACU XR low pelvis w/LT x-table hip 01/31/2023 2:01 PM SIGNS AND SYMPTOMS: Total Hip, due in PACU Must include entire prosthesis reshoot if necessar PROTOCOL: Frontal radiograph the pelvis with crosstable lateral view of the left hip COMPARISON: 12/24/2022 FINDINGS: Total left hip arthroplasty hardware has been placed in the interval. There is no hardware complication or malalignment. No fracture or dislocation. The bony ring of the pelvis is intact. XR/XR low pelvis w/LT x-table hip IMPRESSION: Interval total left hip arthroplasty hardware. No fracture or hardware complication. Impression dictated by: Reggie Vallejo M.D.01/31/2023 5:10 PM Dictation Location: RADIO-[employer]-07 Transcribed By: SAAD 01/31/231709 Dictated By: Reggie Vallejo II, MD 01/31/231708 Signed By: 01/31/231709 Normal [facility] Automated erythrocytes count in urine sediment (number/area)Ordered By: Edison Veronica on 01-20-2023 RBC Auto (Urine sed) [#/Area] None seen [HPF] 0-4 [facility] Automated leukocytes count i n urine sediment (number/area)Ordered By: Edison Veronica on 01-20-2023 WBC Auto (Urine sed) [#/Area] 3-4 [HPF] 0-4 [facility] Basic Metabolic Panelon Anion gap [Moles/Vol] 11.3 mmol/L Normal 6.0-15.0 [facility] Comment on above: Performed By: #### F RUC ####[facility] ,#### CBC, BMP ####[place] [address] Calcium [Mass/Vol] 9.2 mg/dL Normal 8.6-10.3 [facility] Comment on above: Result Comment: PERF ORMED BY: [facility] [address] [place] [address] JUDGE ERIC ABDI M.D. Performed By: #### F RUC ####[facility] ,#### CBC, BMP ####[place] [address] [place] [id number] [place] Chloride [Moles/Vol] 103 mmol/L Normal 98-107 [facility] Comment on above: Performed By: #### F RUC ####[facility] ,#### CBC, BMP ####[facility] [address] [place] [id number] [place] CO2 [Moles/Vol] 29.0 mmol/L Normal 21.0-31.0 [facility] Comment on above: Performed By: #### F RUC ####[facility] ,#### CBC, BMP ####[facility] [place] [address] [place] Creatinine [Mass/Vol] 0.67 mg/dL Normal 0.60-1.20 [facility] Comment on above: Performed By: #### F RUC ####[facility] ,#### CBC, BMP ####[address] [address] [place] GFR/1.73 sq M.predicted MDRD (S/P/Bld) [Vol rate/Area] mL/min/{1.73_m2} Normal [facility] Comment on above: Performed By: #### F RUC ####[facility] ,#### CBC, BMP ####[address] [address] [facility] Glucose [Mass/Vol] 149 mg/dL High 70-100 [facility] Comment on above: Result Comment: [facility] Glucose Reference Range is dependent on time and content of last meal. Glucose of more than 200 mg/dL in a nonstressed, ambulatory subject supports the diagnosis of Diabetes Mellitus. ADA recommended reference range Performed By: #### F RUC ####[facility] ,#### CBC, BMP ####[address] [address] [place] Potassium [Moles/Vol] 4.3 mmol/L Normal 3.5-5.1 [facility] Comment on above: Performed By: #### F RUC ####[facility] ,#### CBC, BMP ####[address] [address] [place] Sodium [Moles/Vol] 139 mmol/L Normal 136-145 [facility] Comment on above: Performed By: #### F RUC ####[facility] ,#### CBC, BMP ####[address] [address] [place] Urea nitrogen [Mass/Vol] 16 mg/dL Normal 7-25 [facility] Comment on above: Performed By: #### F RUC ####[facility] ,#### CBC, BMP ####[facility] [address] [place] [address] [facility] Basophils Auto (Bld) [#/Vol] Ordered By: Edison Veronica on 01-20-2023 Basophils (Bld) [#/Vol] 0.0 10*3/uL 0.0-0.2 [facility] Basophils/100 WBC Auto (Bld) Ordered By: Edison Veronica on 01-20-2023 Basophils/100 WBC (Bld) 1.0 % . [facility] Bilirubin Test strip Ql (U)O rdered By: Edison Veronica on 01-20-2023 Bilirubin Ql (U) Negative Negative [facility] Calcium [Mass/volume] in Ser um or PlasmaOrdered By: Edison Veronica on 01-20-2023 Calcium [Mass/Vol] 9.2 mg/dL 8.6-10.3 [facility] Carbon dioxide, total [Moles /volume] in Serum or PlasmaOrdered By: Edison Veronica on 01-20-2023 CO2 [Moles/Vol] 29.0 mmol/L 21.0-31.0 [facility] Chloride [Moles/volume] in S sima or PlasmaOrdered By: Edison Veronica on 01-20-2023 Chloride [Moles/Vol] 103 mmol/L 98-107 [facility] Color Auto (U)Ordered By: Lilian Veronica on 01-20-2023 Color (U) Yellow Yellow [facility] Complete Blood Count Auto Di ffon 01-20-2023 Basophils (Bld) [#/Vol] 0.0 10*3/uL Normal 0.0-0.2 [facility] Comment on above: Result Comment: PERF ORMED BY: [facility] [address] [place] [address] JUD[address] ERIC ABDI M.D. Performed By: #### F RUC ####[facility] ,#### CBC, BMP ####[address] Basophils/100 WBC (Bld) 1.0 % Normal . [facility] Comment on above: Performed By: #### F RUC ####[facility] ,#### CBC, BMP ####[address] Eosinophils (Bld) [#/Vol] 0.0 10*3/uL Normal 0.0-0.45 [facility] Comment on above: Performed By: #### F RUC ####[facility] ,#### CBC, BMP ####[address] Eosinophils/100 WBC (Bld) 0.0 % Normal . [facility] Comment on above: Performed By: #### F RUC ####[facility] ,#### CBC, BMP ####[address] Erythrocyte distribution width (RBC) [Ratio] 14.0 % Normal 11.9-15.3 [facility] Comment on above: Performed By: #### F RUC ####[facility] ,#### CBC, BMP ####[address] Hematocrit (Bld) [Volume fraction] 36.6 % Normal 34.0-46.4 [facility] Comment on above: Performed By: #### F RUC ####[facility] ,#### CBC, BMP ####[address] Hemoglobin (Bld) [Mass/Vol] 12.3 g/dL Normal 11.8-15.4 [facility] Comment on above: Performed By: #### F RUC ####[facility] ,#### CBC, BMP ####[address] Lymphocytes (Bld) [#/Vol] 1.3 10*3/uL Normal 1.00-4.8 [facility] Comment on above: Performed By: #### F RUC ####[facility] ,#### CBC, BMP ####[address] Lymphocytes/100 WBC (Bld) 36.7 % Normal . [facility] Comment on above: Performed By: #### F RUC ####[facility] ,#### CBC, BMP ####[address] MCH (RBC) [Entitic mass] 27.3 pg Normal 24.7-34.3 [facility] Comment on above: Performed By: #### F RUC ####[facility] ,#### CBC, BMP ####[address] MCV (RBC) [Entitic vol] 81.4 fL Normal 80-100 [facility] Comment on above: Performed By: #### F RUC ####[facility] ,#### CBC, BMP ####[address] Mean Corpuscular HGB Conc 33.5 g/dL Normal 32.0-35.0 [facility] Comment on above: Performed By: #### F RUC ####[facility] ,#### CBC, BMP ####[address] Monocytes (Bld) [#/Vol] 0.3 10*3/uL Normal 0.0-0.8 [facility] Comment on above: Performed By: #### F RUC ####[facility] ,#### CBC, BMP ####[address] [address] [facility] Monocytes/100 WBC (Bld) 7.2 % Normal . [facility] Comment on above: Performed By: #### F RUC ####[facility] ,#### CBC, BMP ####[address] [address] [facility] Neutrophils (Bld) [#/Vol] 2.0 10*3/uL Normal 1.8-7.7 [facility] Comment on above: Performed By: #### F RUC ####[facility] ,#### CBC, BMP ####[address] Neutrophils/100 WBC (Bld) 55.1 % Normal . [facility] Comment on above: Performed By: #### F RUC ####[facility] ,#### CBC, BMP ####[address] NRBC% 0.1 /100{WBC} Normal 0-0.5 [facility] Comment on above: Performed By: #### F RUC ####[facility] ,#### CBC, BMP ####[address] [address] [facility] Platelet mean volume (Bld) [Entitic vol] 8.2 fL Normal 6.3-10.7 [facility] Comment on above: Performed By: #### F RUC ####[facility] ,#### CBC, BMP ####[address] [address] [place] Platelets (Bld) [#/Vol] 248 10*3/uL Normal 150-450 [facility] Comment on above: Performed By: #### F RUC ####[facility] ,#### CBC, BMP ####[address] [place] [address] [facility] RBC (Bld) [#/Vol] 4.50 10*6/uL Normal 3.60-5.00 [facility] Comment on above: Performed By: #### F RUC ####[facility] ,#### CBC, BMP ####[address] [address] [facility] WBC (Bld) [#/Vol] 3.5 10*3/uL Low 3.8-11.6 [facility] Comment on above: Performed By: #### F RUC ####[facility] ,#### CBC, BMP ####[address] [address] [facility] Creatinine [Mass/volume] in Serum or PlasmaOrdered By: Edison Veronica on 01-20-2023 Creatinine [Mass/Vol] 0.67 mg/dL 0.60-1.20 [facility] Dipstick and Microscopicon 1 Appearance (U) Clear Normal Clear [facility] Comment on above: Order Comment: Name Collection Type:: Clean-Voided Midstream Performed By: #### A DDONUAPLUS ####[address] [address] [facility] Bacteria,Urine None Seen Normal None Seen [facility] Comment on above: Order Comment: Name Collection Type:: Clean-Voided Midstream Performed By: #### A DDONUAPLUS ####[address] [address] [facility] Bilirubin,Urine Negative Normal Negative [facility] Comment on above: Order Comment: Name Collection Type:: Clean-Voided Midstream Performed By: #### A DDONUAPLUS ####[address] [address] [facility] Color (U) Yellow Normal Yellow [facility] Comment on above: Order Comment: Name Collection Type:: Clean-Voided Midstream Performed By: #### A DDONUAPLUS ####[address] [address] [facility] Glucose Ql (U) Normal Normal Normal [facility] Comment on above: Order Comment: Name Collection Type:: Clean-Voided Midstream Performed By: #### A DDONUAPLUS ####[address] [address] [facility] Hyaline Casts,Urine None Seen Normal 0-8 [facility] Comment on above: Order Comment: Name Collection Type:: Clean-Voided Midstream Result Comment: PERF ORMED BY: [facility] [address] [facility] [place] [address] JUDGE ERIC ABDI M.D. Performed By: #### A DDONUAPLUS ####[address] [address] [facility] Ketones Ql (U) Negative Normal Negative [facility] Comment on above: Order Comment: Name Collection Type:: Clean-Voided Midstream Performed By: #### A DDONUAPLUS ####[address] [address] [facility] Leukocyte esterase Test strip Ql (U) 2+ High Negative [facility] Comment on above: Order Comment: Name Collection Type:: Clean-Voided Midstream Performed By: #### A DDONUAPLUS ####[address] [address] [facility] Nitrite,Urine Negative Normal Negative [facility] Comment on above: Order Comment: Name Collection Type:: Clean-Voided Midstream Performed By: #### A DDONUAPLUS ####[address] [address] [facility] Occult Blood,Urine Negative Normal Negative [facility] Comment on above: Order Comment: Name Collection Type:: Clean-Voided Midstream Result Comment: PERF ORMED BY: [facility] [address] [place] [id number] PATHOLOGIST [address] JUDGE ERIC ABDI M.D. Performed By: #### A DDONUAPLUS ####[address] [address] [place] pH (U) 6.0 [pH] Normal 5.0-9.0 [facility] Comment on above: Order Comment: Name Collection Type:: Clean-Voided Midstream Performed By: #### A DDONUAPLUS ####[place] [address] [place] [address] [facility] Protein,Urine Negative Normal Negative [facility] Comment on above: Order Comment: Name Collection Type:: Clean-Voided Midstream Performed By: #### A DDONUAPLUS ####[address] [address] [facility] RBC,Urine None Seen Normal 0-4 [facility] Comment on above: Order Comment: Name Collection Type:: Clean-Voided Midstream Performed By: #### A DDONUAPLUS ####[address] [address] [facility] Specificy [place],Urine 1.008 Normal 1.001-1.03 0 [facility] Comment on above: Order Comment: Name Collection Type:: Clean-Voided Midstream Performed By: #### A DDONUAPLUS ####[address] [address] [facility] Squamous Epithelial Cell,Urine None Seen Normal 0-2 [facility] Comment on above: Order Comment: Name Collection Type:: Clean-Voided Midstream Performed By: #### A DDONUAPLUS ####[address] [address] [facility] Urobilinogen,Urine Normal Normal Normal [facility] Comment on above: Order Comment: Name Collection Type:: Clean-Voided Midstream Performed By: #### A DDONUAPLUS ####[address] [address] [place] WBC,Urine 3-4 Normal 0-4 [facility] Comment on above: Order Comment: Name Collection Type:: Clean-Voided Midstream Performed By: #### A DDONUAPLUS ####[address] [address] [facility] ECG 12 lead ECGon 01-20-2023 ECG 12 lead ECG [facility] [place] [address] Electrocardiograph Report Signed Patient: Ana Palmer MR#: [id number] : 1970 Acct:[id number] Age/Sex: 52 / F ADM Date: 01/20/23 Loc: PS Room: Type: [facility] Attending Dr: Edison Veronica II, MD Ordering Provider: Edison Veronica MD Date of Service: 01/20/2309/08/1455 ECG/ECG 12 lead ECG: LTHA Copies to: Test Reason : Blood Pressure : / mmHG Vent. Rate : 095 BPM Atrial Rate : 095 BPM P-R Int : 146 ms QRS Dur : 084 ms QT Int : 348 ms P-R-T Axes : 056 064 057 degrees QTc Int : 437 ms Normal sinus rhythm Normal ECG No previous ECGs available Confirmed by OLIVERIO BARTH [facility] ([id number]) on 01/21/2023 7:23:27 AM Referred By: JEREMÍAS Electronically Signed By:SILVIA DURON MD [facility] Transcribed By: JACQUELYN Signed By Jaspal Duron MD 01/21/23 07 Normal [facility] Eosinophils Auto (Bld) [#/Vo l]Ordered By: Edison Veronica on 01-20-2023 Eosinophils (Bld) [#/Vol] 0.0 10*3/uL 0.0-0.45 [facility] Eosinophils/100 WBC Auto (Bl d)Ordered By: Edison Veronica on 01-20-2023 Eosinophils/100 WBC (Bld) 0.0 % . [facility] Erythrocyte distribution wid th Auto (RBC) [Ratio]Ordered By: Edison Veronica on 01-20-2023 Erythrocyte distribution width (RBC) [Ratio] 14.0 % 11.9-15.3 [facility] Fructosamineon 01-20-2023 Fructosamine 196 umol/L Normal 0-285 [facility] Comment on above: Result Comment: Publ ished reference interval for apparently healthy subjects between age 20 and 60 is 205 - 285 umol/L and in a poorly controlled diabetic population is 228 - 563 umol/L with a mean of 396 umol/L. Performed at: [email or web address] [address] [place], [place] [id number] Laboratory Veterinarian: Lane Rivera PhD, Phone: [phone] PERFORMED BY: [facility] [address] [place] [address] JUDGE ERIC ABDI M.D. Performed By: #### F RUC ####[facility] ,#### CBC, BMP ####[facility] Fructosamine [Moles/volume] in Serum or PlasmaOrdered By: Edisno Veronica on 01-20-2023 Fructosamine [Moles/Vol] 196 umol/L 0-285 [facility] Comment on above: Published reference interval for apparently healthysubjects between age 20 and 60 is 205 - 285 umol/L and in apoorly controlled diabetic population is 228 - 563 umol/Lwith a mean of 396 umol/L.Performed at: - [place] [id number] [place], [place] [id number] Director: Lane Rivera PhD, Phone: [phone] Glucose [Mass/volume] in Ser um or PlasmaOrdered By: Edison Veronica on 01-20-2023 Glucose [Mass/Vol] 149 mg/dL 70-100 [facility] Comment on above: ADA recommended refe rence rangeRandom Glucose Reference Range is dependent on time and content of last meal. Glucose of more than 200 mg/dL in a nonstressed, ambulatory subject supports the diagnosis of Diabetes Mellitus. Hematocrit Auto (Bld) [Volum e fraction]Ordered By: Edison Veronica on 01-20-2023 Hematocrit (Bld) [Volume fraction] 36.6 % 34.0-46.4 [facility] Hemoglobin [Mass/volume] in BloodOrdered By: Edison Veronica on 01-20-2023 Hemoglobin (Bld) [Mass/Vol] 12.3 g/dL 11.8-15.4 [facility] Ketones Auto test strip (U) [Mass/Vol]Ordered By: Edison Veronica on 01-20-2023 Ketones (U) [Mass/Vol] Negative Negative [facility] Laboratory - UrinalysisOrder ed By: Edison Veronica on 01-20-2023 Hyaline casts LM Ql (Urine sed) None seen [LPF] 0-8 [facility] Leukocytes [#/volume] correc carola for nucleated erythrocytes in Blood by Automated counOrdered By: Edison Veronica on 01-20-2023 WBC corrected for nucl RBC Auto (Bld) [#/Vol] 3.5 10*3/uL 3.8-11.6 [facility] Lymphocytes Auto (Bld) [#/Vo l]Ordered By: Edison Veronica on 01-20-2023 Lymphocytes (Bld) [#/Vol] 1.3 10*3/uL 1.00-4.8 [facility] Lymphocytes/100 WBC Auto (Bl d)Ordered By: Edison Veronica on 01-20-2023 Lymphocytes/100 WBC (Bld) 36.7 % . [facility] MCH Auto (RBC) [Entitic mass ]Ordered By: Edison Veronica on 01-20-2023 MCH (RBC) [Entitic mass] 27.3 pg 24.7-34.3 [facility] MCHC Auto (RBC) [Mass/Vol]Or dered By: Edison Veronica on 01-20-2023 MCHC (RBC) [Mass/Vol] 33.5 g/dL 32.0-35.0 [facility] MCV Auto (RBC) [Entitic vol] Ordered By: Edison Veronica on 01-20-2023 MCV (RBC) [Entitic vol] 81.4 fL 80-100 [facility] Monocytes Auto (Bld) [#/Vol] Ordered By: Edison Veronica on 01-20-2023 Monocytes (Bld) [#/Vol] 0.3 10*3/uL 0.0-0.8 [facility] Monocytes/100 WBC Auto (Bld) Ordered By: Edison Veronica on 01-20-2023 Monocytes/100 WBC (Bld) 7.2 % . [facility] Neutrophils Auto (Bld) [#/Vo l]Ordered By: Edison Veronica on 01-20-2023 Neutrophils (Bld) [#/Vol] 2.0 10*3/uL 1.8-7.7 [facility] Neutrophils/100 WBC Auto (Bl d)Ordered By: Edison Veronica on 01-20-2023 Neutrophils/100 WBC (Bld) 55.1 % . [facility] Nitrite Test strip Ql (U)Ord ered By: Edison Veronica on 01-20-2023 Nitrite Ql (U) Negative Negative [facility] No Panel InformationOrdered By: Edison Veronica on 01-20-2023 Estimated GFR (CKD-EPI) > 60.0 mL/Min [facility] Creatinine Clearance (Chem N/A [facility] Nucleated erythrocytes [Pres ence] in Blood by Automated countOrdered By: Edison Veronica on 01-20-2023 Nucleated RBC Auto Ql (Bld) 0.1 /100{WBC} 0-0.5 [facility] PST Type and Screenon 2022 ABO and Rh group Nom (Bld) Blood group O Rh(D) positive Normal [facility] Comment on above: Order Comment: Date of Surgery: [id number] Result Comment: PERF ORMED BY: [facility] [address] [place] [address] JUDGE ERIC ABDI M.D. Platelet mean volume Auto (B ld) [Entitic vol]Ordered By: Edison Veronica on 01-20-2023 Platelet mean volume (Bld) [Entitic vol] 8.2 fL 6.3-10.7 [facility] Platelets Auto (Bld) [#/Vol] Ordered By: Edison Veronica on 01-20-2023 Platelets (Bld) [#/Vol] 248 10*3/uL 150-450 [facility] Potassium [Moles/volume] in Serum or PlasmaOrdered By: Edison Veronica on 01-20-2023 Potassium [Moles/Vol] 4.3 mmol/L 3.5-5.1 [facility] Protein Auto test strip (U) [Mass/Vol]Ordered By: Edison Veronica on 01-20-2023 Protein (U) [Mass/Vol] Negative Negative [facility] RBC Auto (Bld) [#/Vol]Ordere d By: Edison Veronica on 01-20-2023 RBC (Bld) [#/Vol] 4.50 10*6/uL 3.60-5.00 [facility] Serum or plasma anion gap de terminationOrdered By: Edison Veronica on 01-20-2023 Anion gap [Moles/Vol] 11.3 mmol/L 6.0-15.0 [facility] Sodium [Moles/volume] in Ser um or PlasmaOrdered By: Edison Veronica on 01-20-2023 Sodium [Moles/Vol] 139 mmol/L 136-145 [facility] Specific gravity Auto test s trip (U) [Rel density]Ordered By: Edison Veronica on 01-20-2023 Specific gravity (U) [Rel density] 1.008 1.001-1.03 0 [facility] Squamous epithelial cells de tection in urine sediment by light microscopyOrdered By: Edison Veronica on 01-20-2023 Epithelial cells.squamous LM Ql (Urine sed) None seen [HPF] 0-2 [facility] Urea nitrogen [Mass/volume] in Serum or PlasmaOrdered By: Edison Veronica on 01-20-2023 Urea nitrogen [Mass/Vol] 16 mg/dL 7-25 [facility] Urine bacteria detection by automated methodOrdered By: Edison Veronica on 01-20-2023 Bacteria Auto Ql (U) None seen None Seen [facility] Urine clarity by refractomet ry automatedOrdered By: Edison Veronica on 01-20-2023 Clarity Refractometry automated (U) Clear Clear [facility] Urine glucose measurement by automated test strip (mass/volume)Ordered By: Edison Veronica on 01-20-2023 Glucose Auto test strip (U) [Mass/Vol] Normal mg/dL Normal [facility] Urine hemoglobin detection b y automated test stripOrdered By: Edison Veronica on 01-20-2023 Hemoglobin Auto test strip Ql (U) Negative Negative [facility] Urine leukocyte esterase det ection by automated test stripOrdered By: Edison Veronica on 01-20-2023 Leukocyte esterase Auto test strip Ql (U) 2+ Negative [facility] Urobilinogen Auto test strip (U) [Mass/Vol]Ordered By: Edison Veronica on 01-20-2023 Urobilinogen (U) [Mass/Vol] Normal mg/dL Normal [facility] WBC Auto (Bld) [#/Vol]Ordere d By: Edison Veronica on 01-20-2023 WBC (Bld) [#/Vol] 3.5 10*3/uL 3.8-11.6 [facility] pH Auto test strip (U)Ordere d By: Edison Veronica on 01-20-2023 pH (U) 6.0 [pH] 5.0-9.0 [facility] A1C with Estimated Average G luon 12-24-2022 Glucose [Mass/Vol] 111 mg/dL Normal [facility] Comment on above: Order Comment: Reaso n for Exam Primary osteoarthritis of left hip;Age-related osteoporosis Result Comment: PERF ORMED BY: [place] [address] ERIC ABDI M.D. Performed By: #### H GB, CUMRSA, ALB, [id number], A1C WT eA #### [facility] [address] [place] [address] #### NICOTINE #### [facility] , HbA1c (Bld) [Mass fraction] 5.5 % Normal 4.3-5.6 [facility] Comment on above: Order Comment: Reaso n for Exam Primary osteoarthritis of left hip;Age-related osteoporosis Result Comment: Incr eased risk for diabetes: 5.7 - 6.4 diabetes: >6.4 glycemic control for adults with diabetes: <7.0 Performed By: #### H GB, CUMRSA, ALB, [id number], A1C WTH eA #### [facility] [address] [place] [address] [place] #### NICOTINE #### [facility] , Albumin Levelon 12-24-2022 Albumin [Mass/Vol] 4.5 g/dL Normal 3.5-5.7 [facility] Comment on above: Order Comment: Reaso n for Exam Primary osteoarthritis of left hip;Age-related osteoporosis Performed By: #### H GB, CUMRSA, ALB, [id number], A1C WTH eA #### [facility] [address] [place] [address] [place] #### NICOTINE #### [facility] , Albumin [Mass/volume] in Ser um or Plasma by Bromocresol green (BCG) dye binding methoOrdered By: Edison Veronica on 12-24-2022 Albumin BCG dye [Mass/Vol] 4.5 g/dL 3.5-5.7 [facility] Cotinine [Mass/volume] in Se rum or PlasmaOrdered By: Edison Veronica on 12-24-2022 Cotinine [Mass/Vol] <1.0 ng/mL . [facility] Comment on above: This test was develo ped and its performance characteristicsdetermined by [facility]. It has not been cleared orapproved by the Food and Drug Administration.Cotinine levels greater than 20.0 are consistent with theuse of tobacco or tobacco cessation products.Performed at: [facility] [address] [id number] Director: Antonio Dumont MD, Phone: [phone] Glucose mean value [Mass/vol ume] in Blood Estimated from glycated hemoglobinOrdered By: Edison Veronica on 12-24-2022 Average glucose Estimated from glycated hemoglobin (Bld) [Mass/Vol] 111 mg/dL [facility] Hemoglobinon 12-24-2022 Hemoglobin (Bld) [Mass/Vol] 13.0 g/dL Normal 11.8-15.4 [facility] Comment on above: Order Comment: Reaso n for Exam Primary osteoarthritis of left hip;Age-related osteoporosis Result Comment: PERF ORMED BY: [address] [place] [address]GE ERIC ABDI M.D. Performed By: #### H GB, CUMRSA, ALB, [id number], A1C WTH eA #### [facility] [address] [place] [address] #### NICOTINE #### [facility] , Hemoglobin A1c percentageOrd ered By: Edison Veronica on 12-24-2022 HbA1c (Bld) [Mass fraction] 5.5 % 4.3-5.6 [facility] Comment on above: Increased risk for d iabetes: 5.7 - 6.4diabetes: >6.4glycemic control for adults with diabetes: <7.0 Hemoglobin [Mass/volume] in BloodOrdered By: Edison Veronica on 12-24-2022 Hemoglobin (Bld) [Mass/Vol] 13.0 g/dL 11.8-15.4 [facility] MRSA Cultureon 12-24-2022 MRSA Culture Reason for Exam Prim jody osteoarthritis of left hip;Age-related osteoporosis Nasal Reason for Exam: Primary osteoarthritis of left hip;Age-related osteoporosis : Nasal No MRSA Isolated 2 Days PERFORMED BY: [address] [place] [address] JUDGE ERIC ABDI M.D. Normal [facility] Comment on above: Performed By: #### H GB, CUMRSA, ALB, [id number], A1C WTH eA #### [facility] [address] [place] [address] #### NICOTINE #### [facility] , Nicotine [Mass/volume] in Se rum or PlasmaOrdered By: Edison Veronica on 12-24-2022 Nicotine [Mass/Vol] <1.0 ng/mL . [facility] Comment on above: This test was develo ped and its performance characteristicsdetermined by [employer]. It has not been cleared orapproved by the Food and Drug Administration.Nicotine levels greater than 2.0 are consistent with theuse of tobacco or tobacco cessation products. Nicotine/Cotinine Bloodon Cotinine, Blood <1.0 Normal . [facility] Comment on above: Order Comment: Reaso n for Exam Primary osteoarthritis of left hip;Age-related osteoporosis Result Comment: This test was developed and its performance characteristics determined by [employer]. It has not been cleared or approved by the Food and Drug Administration. Cotinine levels greater than 20.0 are consistent with the use of tobacco or tobacco cessation products. Performed at: [facility] [address] [id number] Laboratory Veterinarian: Antonio Dumont MD, Phone: [phone] PERFORMED BY: [place] [id number] PATHOLOGIST [place] [address] JUDGE ERIC ABDI M.D. Performed By: #### H GB, CUMRSA, ALB, [id number], A1C WTH eA #### [address] #### NICOTINE #### [facility] , Nicotine, Blood <1.0 Normal . [facility] Comment on above: Order Comment: Reaso n for Exam Primary osteoarthritis of left hip;Age-related osteoporosis Result Comment: This test was developed and its performance characteristics determined by [facility]. It has not been cleared or approved by the Food and Drug Administration. Nicotine levels greater than 2.0 are consistent with the use of tobacco or tobacco cessation products. Performed By: #### H GB, CUMRSA, ALB, [id number], A1C WTH eA #### [facility] [address] [place] [address] #### NICOTINE #### [facility] , Vitamin D 25 Hydroxy Totalon 12-24-2022 Vitamin D 25 Hydroxy Total 50.9 ng/mL Normal 30-100 [facility] Comment on above: Order Comment: Reaso n for Exam Primary osteoarthritis of left hip;Age-related osteoporosis Result Comment: AVINASH MIN D STATUS 25([place])VITAMIN D RANGE (ng/mL) Deficient <20 Insufficient 20 to <30 Sufficient 30 to 100 Reference: Casandra MF,Maddi NC, Adam WHITE, et al. Evaluation,treatment, and prevention of vitamin D deficiency; an Endocrine Society clinical practice guideline. JCEM. 2010; 96(7):1911-30. PERFORMED BY: [address] [place] [id number] PATHOLOGIST COUNTY COURT JUDGE JIANLAN SUN M.D. Performed By: #### H GB, CUMRSA, ALB, [id number], A1C [facility] #### [address] #### NICOTINE #### [facility] , Vitamin D+Metabolites [Mass/ volume] in Serum or PlasmaOrdered By: Edison Veronica on 12-24-2022 Vitamin D+Metabolites [Mass/Vol] 50.9 ng/mL 30-100 [facility] Comment on above: VITAMIN D STATUS 25( [place])VITAMIN D RANGE (ng/mL) Deficient <20 Insufficient 20 to <30Sufficient 30 to 100Reference: Casandra MF,Maddi NC, Adam WHITE, et al. Evaluation,treatment, and prevention of vitamin D deficiency; an Endocrine Society clinical practice guideline. JCEM. 2010; 96(7):1911-30. Wound methicillin resistant Staphylococcus aureus (MRSA) cultureOrdered By: Edison Veronica on 12-24-2022 MRSA isol Org specific cx Ql (Unsp spec) No MRSA Isolated 2 Days [facility] MRSA isol Org specific cx Ql (Unsp spec) No MRSA Isolated 2 Days [facility] XR hip LT min 2V(w/wo pelvis )*on 12-24-2022 XR hip LT min 2V(w/wo pelvis)* [facility] Main [place] [address] [place] [address] XRay Report Signed Patient: Ana Palmer MR#: [id number] : 1970 Acct:[id number] Age/Sex: 52 / F ADM Date: 12/24/22 Loc: [facility] Room: Type: [facility] Attending Dr: Edison Veronica II, MD Copies to: Edison Veronica MD Ordering Provider: Edison Veronica MD Date of Service: 12/24/22 XR/XR hip LT min 2V(w/wo pelvis)*: Left hip pain 2 views LEFT hip with single view pelvis plain film COMPARISON: 09/03/22 MRI of the LEFT hip HISTORY: Worsening LEFT hip pain. ACUTE FINDINGS: None DEGENERATIVE CHANGE: Redemonstration of extensive LEFT hip degeneration with joint space narrowing and subarticular sclerotic and cystic changes of the acetabulum and the femoral head. SOFT TISSUE FINDINGS: Unremarkable JOINT EFFUSION: None POSTOP CHANGES: None BONY MINERALIZATION: Adequate XR/XR hip LT min 2V(w/wo pelvis)* IMPRESSION: Redemonstration of extensive LEFT hip degenerative changes. Impression dictated by: Wes Serrano M.D.12/24/2022 2:38 PM Dictation Location: [place] [address] Transcribed By: [facility] 12/24/22 143 Dictated By: Wes Serrano DO 12/24/22 143 Signed By: 12/24/22 1438 [facility] MG MAMM SCREEN 3D ADALBERTO CADon 09-09-2022 MG MAMM SCREEN 3D ADALBETRO CAD Patient: ANA PALMER Exam Date: 09/09/2022 : 1970 Gender:F Ordering : DR GINA JAVIER . Admission #: [id number] Family : Order #: [id number] CLICK HERE TO VIEW EXAM RADIOLOGY REPORT PROCEDURE: MAMMOGRAM SCREENING 3D BILATERAL CAD COMPARISON: MG MAMM RT DIAG W CAD, 06/06/2020. MG MAMM SCREEN 3D ADALBERTO CAD, 11/17/2020. INDICATIONS: Screening mammography Calculator Name NCI Breast Cancer Risk Assessment Tool 5 Year Breast Cancer Risk 0.90% Lifetime Breast Cancer Risk 7.40% Personal Breast Cancer No Personal Ovarian Cancer No Treatments None Family Cancers Son with aml cancer at age 25. LOCATION: [facility] BREAST COMPOSITION: Heterogeneously dense,which may obscure small masses. FINDINGS: DIAGNOSTIC CATEGORY 2--BENIGN FINDING. NO CHANGE FROM COMPARISON. Scattered benign-appearing calcifications are present. Scattered benign-appearing lymph nodes are present. RIGHT BREAST: No significant suspicious finding. Stable nodule upper inner quadrant, mid breast with associated micro clip marker LEFT BREAST: No significant suspicious finding. RECOMMENDATIONS: ROUTINE MAMMOGRAM AND CLINICAL EVALUATION IN 12 MONTHS. PLEASE NOTE: A NORMAL MAMMOGRAM DOES NOT EXCLUDE THE POSSIBILITY OF BREAST CANCER. A CLINICALLY SUSPICIOUS PALPABLE LUMP SHOULD BE BIOPSIED. Dictated by: Ale Gerber MD on 09/09/2022 at 12:03 Approved by: Ale Gerber MD on 09/09/2022 at 12:06 Normal [facility] MR hip LT wo conon MR hip LT wo con [facility] Main [place] [address] [place] [address] MRI Report Signed Patient: Ana Palmer MR#: [id number] : 1970 Acct:[id number] Age/Sex: 51 / F ADM Date: 09/03/22 Loc: [facility] Room: Type: [facility] Attending Dr: Sawyer Gerer MD Copies to: Sawyer Greer MD Ordering Provider: Sawyer Greer MD Date of Service: 09/03/22 MR/MR hip LT wo con: Left hip pain MRI RIGHT hip without contrast Routine technique HISTORY: LEFT hip and groin pain for a few years. Pelvis: PUBIC SYMPHYSIS: Unremarkable SI JOINTS: Unremarkable COMPARISON HIP: Unremarkable VISUALIZED LUMBAR SPINE: Unremarkable Bone: BONE MARROW EDEMA: There is subtle bone marrow edema of the LEFT acetabulum and the LEFT femoral head and neck region. BONE MARROW INFILTRATION: None FRACTURE: None CAM DEFORMITY: None Joint space: LIGAMENTUM TERES: Unremarkable LABRUM: No tear. Chondral labrum intact. CARTILAGE: Thinning of the acetabular and femoral articular cartilage in the weightbearing portion of the LEFT hip identified. SYNOVIAL PROLIFERATION: None Joint effusion of the LEFT hip present. Tendons: GLUTEUS MINIMUS TENDON: Intact. Normal attachment of the anterior facet. GLUTEUS MEDIUS TENDON: Intact. Normal lateral and superolateral facet attachment. ILIOPSOAS TENDON: Intact. Anterior position anterior to the anterior labrum. No bursitis. RECTUS FEMORIS TENDON: Intact PIRIFORMIS MUSCLE: Unremarkable ADDITIONAL FINDINGS: None INGUINAL HERNIA: None MR/MR hip LT wo con IMPRESSION: Articular cartilage thinning of the weightbearing portion of the hip with subarticular bone marrow edema in the femoral head and acetabulum. Consider extensive degenerative change. No articular surface collapse. No obvious findings of AVN. Moderate joint effusion. No acute bony findings. No worrisome tendinopathy or muscular abnormality. Impression dictated by: Wes Serrano M.D.09/03/2022 3:31 PM Dictation Location: [place] [address] Transcribed By: [facility] 09/03/22 1531 Dictated By: Wes Serrano DO 09/03/22 1509 Signed By: 09/03/22 1531 [facility] CBC AUTO DIFFon 07-08-2022 BASO # 0.0 103/ul Normal 0.0-0.1 [facility] Comment on above: Performed By: #### C BC #### [facility] [address] [place] [address] [address] Juliana Brooks Basophils/100 WBC (Bld) 0.9 % Normal 0.2-2.0 [facility] Comment on above: Performed By: #### C BC #### [facility] [address] [place] [address] Dr. Juliana Brooks EO # 0.0 103/ul Normal 0.0-0.7 [facility] Comment on above: Performed By: #### C BC #### [facility] [address] [place] [address] Dr. Juliana Brooks Eosinophils/100 WBC (Bld) 0.4 % Critically low 0.9-7.0 [facility] Comment on above: Performed By: #### C BC #### [facility] [address] [place] [address] Dr. Juliana Brooks Erythrocyte distribution width (RBC) [Ratio] 16.3 % Critically high 11.0-15.0 [facility] Comment on above: Performed By: #### C BC #### [facility] [address] [place] [address] Dr. Juliana Brooks Hematocrit (Bld) [Volume fraction] 37.3 % Normal 36.0-48.0 [facility] Comment on above: Performed By: #### C BC #### [facility] [address] [place] [address] Dr. Juliana Brooks Hemoglobin (Bld) [Mass/Vol] 11.1 g/dL Critically low 12.0-16.0 [facility] Comment on above: Performed By: #### C BC #### [facility] [address] [place] [address] Dr. Juliana Brooks IG # 0.01 10e3/ul Normal 0.00-0.03 [facility] Comment on above: Performed By: #### C BC #### [facility] [address] [place] [address] Dr. Juliana Brooks IG % 0.2 % Normal 0.0-0.5 [facility] Comment on above: Performed By: #### C BC #### [facility] [address] [place] [address] Dr. Juliana Brooks LYMPH # 1.6 103/ul Normal 1.2-3.8 [facility] Comment on above: Performed By: #### C BC #### [facility] [address] [place] [address] Dr. Juliana Brooks Lymphocytes/100 WBC (Bld) 33.0 % Normal 20.5-60.0 [facility] Comment on above: Performed By: #### C BC #### [facility] [address] [place] [address] Dr. Juliana Brooks MANUAL DIFF REQ NO Normal [facility] Comment on above: Performed By: #### C BC #### [facility] [address] [place] [address] Dr. Juliana Brooks MCH (RBC) [Entitic mass] 23.2 pg Critically low 26.7-34.0 [facility] Comment on above: Performed By: #### C BC #### [facility] [address] [place] [address] Dr. Juliana Brooks MCHC (RBC) [Mass/Vol] 29.8 g/dL Critically low 29.9-35.2 [facility] Comment on above: Performed By: #### C BC #### [facility] [address] [place] [address] Dr. Juliana Brooks MCV (RBC) [Entitic vol] 78.0 fL Critically low 81.0-99.0 [facility] Comment on above: Performed By: #### C BC #### [facility] [address] [place] [address] Dr. Juliana Brooks MONO # 0.5 103/ul Normal 0.3-0.8 [facility] Comment on above: Performed By: #### C BC #### [facility] [address] [place] [address] Dr. Juliana Brooks Monocytes/100 WBC (Bld) 10.0 % Normal 1.7-12.0 [facility] Comment on above: Performed By: #### C BC #### [facility] [address] [place] [address] Dr. Juliana Brooks NEUT # 2.6 103/ul Normal 1.4-6.5 [facility] Comment on above: Performed By: #### C BC #### [facility] [address] [place] [address] Dr. Juliana Brooks Neutrophils/100 WBC (Bld) 55.5 % Normal 43.0-75.0 [facility] Comment on above: Performed By: #### C BC #### [facility] [address] [place] [address] Dr. Juliana Brooks Platelet mean volume (Bld) [Entitic vol] 10.2 fL Normal 9.5-13.5 [facility] Comment on above: Performed By: #### C BC #### [facility] [address] [place] [address] Dr. Juliana Brooks PLT 320 103/ul Normal 150-450 [facility] Comment on above: Performed By: #### C BC #### [facility] [address] [place] [address] Dr. Juliana Brooks RBC 4.78 106/ul Normal 4.20-5.40 [facility] Comment on above: Performed By: #### C BC #### [facility] [address] [place] [address] Dr. Juliana Brooks WBC 4.7 103/ul Normal 4.0-11.0 [facility] Comment on above: Performed By: #### C BC #### [facility] [address] [place] [address] Dr. Juliana Brooks FREE THYROXINE INDEX T7on FTI 3.24 Normal 1.30-4.50 [facility] Comment on above: Performed By: #### T 7, TSH, CMP, LIPID #### [facility] [address] [place] [address] Dr. Juliaan Brooks T3U 36.0 % Normal 30.0-39.0 [facility] Comment on above: Performed By: #### T 7, TSH, CMP, LIPID #### [facility] [address] [place] [address] [address] Juliana Brooks T4 [Mass/Vol] 9.00 ug/dL Normal 4.80-13.90 [facility] Comment on above: Performed By: #### T 7, TSH, CMP, LIPID #### [facility] [address] [place] [address] [address] Juliana Brooks GLYCOHEMOGLOBIN A1Con 2022 ADA RECOMMENDATION SEE BELOW Normal [facility] Comment on above: Result Comment: ADA RECOMMENDED LIMIT 4.0 - 6.0 ADA THERAPEUTIC TARGET < 7.0 ACTION SUGGESTED > 7.0 Performed By: #### A 1C #### [facility] [address] [place] [address] Dr. Juliana Brooks Glucose [Mass/Vol] 137 mg/dL Normal [facility] Comment on above: Performed By: #### A 1C #### [facility] [address] [place] [address] Dr. Juliana Brooks HbA1c (Bld) [Mass fraction] 6.4 % Critically high 4.5-6.2 [facility] Comment on above: Performed By: #### A 1C #### [facility] [address] [place] [address] Dr. Juliana Brooks IRONon 07-08-2022 Iron [Mass/Vol] 54.0 ug/dL Normal 50.0-170.0 [facility] Comment on above: Performed By: #### I SARAH #### [facility] [address] [place] [address] Dr. Juliana Brooks LIPID PROFILEon 07-08-2022 CHOL-HDL RATIO NORM SEE BELOW Normal [facility] Comment on above: Result Comment: 3.3 - 4.4 LOW RISK 4.4 - 7.1 AVERAGE RISK 7.1 - 11.0 MODERATE RISK >11.0 HIGH RISK Performed By: #### T 7, TSH, CMP, LIPID #### [facility] [address] [place] [address] Dr. Juliana Brooks Cholesterol [Mass/Vol] 159 mg/dL Normal <=200 [facility] Comment on above: Performed By: #### T 7, TSH, CMP, LIPID #### [facility] [address] [place] [address] [address] Juliana Brooks Cholesterol in HDL [Mass/Vol] 74 mg/dL Critically high 40-60 [facility] Comment on above: Performed By: #### T 7, TSH, CMP, LIPID #### [facility] [address] [address] [address] Juliana Brooks Cholesterol in LDL [Mass/Vol] 74.4 mg/dL Normal [facility] Comment on above: Performed By: #### T 7, TSH, CMP, LIPID #### [facility] [address] [place] [address] Dr. Juliana Brooks Cholesterol.total/Cho lesterol in HDL [Mass ratio] 2.1 {ratio} Normal [facility] Comment on above: Performed By: #### T 7, TSH, CMP, LIPID #### [facility] [address] [address] [address] Juliana Brooks HDL NORMAL > or = 60 mg/dl - LO W CARDIOVASCULAR RISK <40 mg/dl - HIGH CARDIOVASCULAR RISK Normal [facility] Comment on above: Performed By: #### T 7, TSH, CMP, LIPID #### [facility] [address] [place] [address] Dr. Juliana Brooks LDL CALC NORMAL SEE BELOW Normal [facility] Comment on above: Result Comment: <100 mg/dl OPTIMAL 100 - 129 mg/dl NEAR OR ABOVE OPTIMAL 130 - 159 mg/dl BORDERLINE HIGH 160 - 189 mg/dl HIGH >190 mg/dl VERY HIGH Performed By: #### T 7, TSH, CMP, LIPID #### [facility] [address] [place] [address] Dr. Juliana Brooks Triglyceride [Mass/Vol] 53 mg/dL Normal <=150 [facility] Comment on above: Performed By: #### T 7, TSH, CMP, LIPID #### [facility] [address] [place] [address] Dr. Juliana Brooks VLDL CALC 10.6 mg/dL Normal [facility] Comment on above: Performed By: #### T 7, TSH, CMP, LIPID #### [facility] [address] [address] [address] Juliana Brooks PROF 14(COMP METB)on 023 Albumin [Mass/Vol] 3.6 g/dL Normal 3.4-5.0 [facility] Comment on above: Performed By: #### T 7, TSH, CMP, LIPID #### [facility] [address] [place] [address] Dr. Juliana Brooks Albumin/Globulin [Mass ratio] 1.1 {ratio} Normal [facility] Comment on above: Performed By: #### T 7, TSH, CMP, LIPID #### [facility] [address] [place] [address] Dr. Juliana Brooks ALP [Catalytic activity/Vol] 107 U/L Normal 46-116 [facility] Comment on above: Performed By: #### T 7, TSH, CMP, LIPID #### [facility] [address] [address] [address] Juliana Brooks ALT [Catalytic activity/Vol] 26 U/L Normal 14-59 [facility] Comment on above: Performed By: #### T 7, TSH, CMP, LIPID #### [facility] [address] [address] [address] Juliana Brooks Anion gap [Moles/Vol] 11.1 mmol/L Normal [facility] Comment on above: Performed By: #### T 7, TSH, CMP, LIPID #### [facility] [address] [address] [address] Juliana Brooks AST [Catalytic activity/Vol] 19 U/L Normal 15-37 [facility] Comment on above: Performed By: #### T 7, TSH, CMP, LIPID #### [facility] [address] [place] [address] Dr. Juliana Brooks Bilirubin [Mass/Vol] 0.3 mg/dL Normal 0.2-1.0 [facility] Comment on above: Performed By: #### T 7, TSH, CMP, LIPID #### [facility] [address] [address] [address] Juliana Brooks Calcium [Mass/Vol] 9.2 mg/dL Normal 8.5-10.1 [facility] Comment on above: Performed By: #### T 7, TSH, CMP, LIPID #### [facility] [address] [place] [address] Dr. Juliana Brooks Chloride [Moles/Vol] 106 mmol/L Normal 98-107 [facility] Comment on above: Performed By: #### T 7, TSH, CMP, LIPID #### [facility] [address] [place] [address] Dr. Juliana Brooks CO2 [Moles/Vol] 28.3 mmol/L Normal 21.0-32.0 [facility] Comment on above: Performed By: #### T 7, TSH, CMP, LIPID #### [facility] [address] [place] [address] Dr. Juliana Brooks Creatinine [Mass/Vol] 0.60 mg/dL Normal 0.55-1.02 [facility] Comment on above: Performed By: #### T 7, TSH, CMP, LIPID #### [facility] [address] [place] [address] Dr. Juliana Brooks EGFR-AF SOUTH AFRICAN >60 Normal >=60 [facility] Comment on above: Performed By: #### T 7, TSH, CMP, LIPID #### [facility] [address] [place] [address] Dr. Juliana Brooks EGFR-NON AF SOUTH [place]FRICAN >60 Normal >=60 [facility] Comment on above: Performed By: #### T 7, TSH, CMP, LIPID #### [facility] [address] [address] [address] Juliana Brooks Globulin (S) [Mass/Vol] 3.4 g/dL Normal [facility] Comment on above: Performed By: #### T 7, TSH, CMP, LIPID #### [facility] [address] [address] [address] Juliana Brooks Glucose [Mass/Vol] 104 mg/dL Normal 74-106 [facility] Comment on above: Performed By: #### T 7, TSH, CMP, LIPID #### [facility] [address] [place] [address] Dr. Juliana Brooks Potassium [Moles/Vol] 4.4 mmol/L Normal 3.5-5.1 [facility] Comment on above: Performed By: #### T 7, TSH, CMP, LIPID #### [facility] [address] [place] [address] Dr. Juliana Brooks Protein [Mass/Vol] 7.0 g/dL Normal 6.4-8.2 [facility] Comment on above: Performed By: #### T 7, TSH, CMP, LIPID #### [facility] [address] [place] [address] Dr. Juliana Brooks Sodium [Moles/Vol] 141 mmol/L Normal 136-145 [facility] Comment on above: Performed By: #### T 7, TSH, CMP, LIPID #### [facility] [address] [place] [address] Dr. Juliana Brooks Urea nitrogen [Mass/Vol] 11.0 mg/dL Normal 7.0-18.0 [facility] Comment on above: Performed By: #### T 7, TSH, CMP, LIPID #### [facility] [address] [place] [address] Dr. Juliana Brooks Urea nitrogen/Creatinine [Mass ratio] 18.3 mg/mg Normal [facility] Comment on above: Performed By: #### T 7, TSH, CMP, LIPID #### [facility] [address] [place] [address] Dr. Juliana Brooks TSHon 07-08-2022 TSH Qn m[IU]/L Critically low 0.358-3.74 0 [facility] Comment on above: Performed By: #### T 7, TSH, CMP, LIPID #### [facility] [address] [place] [address] Dr. Juliana Brooks MRI LSPINE WO CONon 12-25-19 22 MRI LSPINE WO CON EXAMINATION: MRI LSP INE WO CON HISTORY: Lumbar radiculopathy ; chronic lumbar pain increasing in severity, pain radiating into groin COMPARISON: XR lumbar spine 11/26/2021 TECHNIQUE: A variety of imaging planes and parameters were utilized for visualization of suspected pathology. FINDINGS: For the purposes of numbering, sagittal T2 image # 8 extends from the T11 vertebral body superiorly to the S3-4 level inferiorly. PARASPINAL AREA: Normal with no visible mass. BONES: No fracture, pars defect, or osseous lesion. CORD/CAUDA EQUINA: Normal caliber, contour, and signal intensity. DISC LEVELS: 12-L1: No significant disc/facet abnormality, spinal stenosis, or foraminal stenosis. L1-L2: No significant disc/facet abnormality, spinal stenosis, or foraminal stenosis. L2-L3: No significant disc/facet abnormality, spinal stenosis, or foraminal stenosis. L3-L4: No significant disc/facet abnormality, spinal stenosis, or foraminal stenosis. L4-L5: Mild degenerative facet arthropathy. No significant disc abnormality, spinal stenosis, or foraminal stenosis. L5-S1: Moderate-marked left foramen narrowing. No significant central canal or right foramen narrowing. Mild diffuse disc bulging and mild left facet hypertrophy. IMPRESSION: 1. L5-S1 moderate, bordering on marked, narrowing of left neural foramen; greater than expected for the minimal degenerative disc disease and mild degenerative facet arthropathy. 2. L4-5 mild degenerative facet arthropathy without significant central canal or foraminal stenosis. Electronically authenticated by: IRENE AGUILERA Date: 2021-12-24 16:08 Normal [facility] XR LSPINE MIN 4 VIEWSon 11-16 XR LSPINE MIN 4 VIEWS EXAMINATION: XR LS PINE MIN 4 VIEWS HISTORY: Lumbar radiculopathy COMPARISON: No relevant comparison available. FINDINGS: BONES: Normal alignment with no acute fracture or spondylolisthesis. Mild degenerative spondylosis. Mild facet osteoarthropathy DISC SPACES: Normal. No significant disc height narrowing, subluxation, or endplate abnormality. PARASPINOUS: Negative. No paraspinous abnormality is seen. OTHER: Negative. IMPRESSION: Mild degenerative changes Electronically authenticated by: ALE GERBER Date: 2021-11-26 18:41 Normal [facility] Ambulatory Visit Summaryon 0 07-24-2021 Ambulatory Visit Summary ANA PALMER :1970 Visit Date:07/24/2021 Ambulatory Visit Instructions Your Diagnosis Reducible right inguinal hernia Incisional hernia Your Care Team Attending Physician - KHANG BARTH, Jerry Randolph Primary Care Physician - Yaya BARTH, Gina This Is Your Medications List Contact prescribing physician if questions or concerns irbesartan (irbesartan 150 mg Tab) lansoprazole (lansoprazole 30 mg Cap-DR) simvastatin (simvastatin 20 mg Tab) sumatriptan (SUMAtriptan 100 mg Tab) Procedures Performed Repair of right inguinal hernia (07/01/2021), Cervical discectomy (11/19/2020), Biopsy of breast, section, Colonoscopy, Exploratory laparotomy, ANTHONY BSO - Total abdominal hysterectomy and bilateral salpingo-oophorectomy. Discharge Vitals Temperature (Temporal Artery) 36.6 ?C Medications What How Much When Instructions Unchanged irbesartan (irbesartan 150 mg Tab) 1 Tablets By Mouth Every day Contact prescribing physician if questions or concerns Unchanged lansoprazole (lansoprazole 30 mg Cap-DR) 1 Capsules By Mouth Every day Contact prescribing physician if questions or concerns Unchanged simvastatin (simvastatin 20 mg Tab) 1 Tablets By Mouth Once a day (at bedtime) Contact prescribing physician if questions or concerns Unchanged sumatriptan (SUMAtriptan 100 mg Tab) 1 Tablets By Mouth Every day Contact prescribing physician if questions or concerns Allergies grepafloxacin (Skin reaction) Problems Ongoing - Any problem that you are currently receiving treatment for. Alopecia areata Anxiety Asthma BMI 37.0-37.9, adult Chronic migraine without aura Diabetes HTN (hypertension) Hyperlipidemia Incisional hernia Radiculopathy of cervical spine Reducible right inguinal hernia Sleep apnea Normal [facility] General Surgery Office/Clini c Noteon 07-24-2021 General Surgery Office/Clinic Note Chief Complaint post operative follow up HPI Staff 23 day post operative follow up post right inguinal hernia repair. Denies pain, no use of pain medication. Denies bleeding or drainage. Bowels moving well. History of Present Illness 23 days s/p RIHRincisional hernia repair with mesh; doing well, denies pain, no drainage from incision, no swelling. Review of Systems ROS - Provider Constitutional: no fever, no sweats, no weight loss. Eyes: no glasses, no blurred vision, no visual loss. ENMT: no dentures, no hoarseness, no swallowing difficulties, no hearing loss, no ear infection(s), no nose bleeds. Cardiovascular: normal blood pressure, no chest pain, regular heartbeat, no heart murmur. Respiratory: no shortness of breath, no cough, no asthma, no wheezing. Gastrointestinal: no nausea, no vomiting, no diarrhea, no constipation, no blood in stool, no change in bowel habits, no abdominal pain, no hepatitis. Genitourinary: no kidney stones, no urine infection, no dysuria. Musculoskeletal: no pain, no weakness. Skin: no changing moles, no rash, no skin lumps. Neurologic: no seizures, no epilepsy, no headache. Psychiatric: no emotional or psychiatric problem. Heme/Lymph: no bleeding problems, no anemia, no blood clots, no transfusions. Allergy/Immunologic: no swollen lymph nodes/glands, no IV drug abuse. Other: Additional ROS info: Except as noted in the above Review of Systems and in the History of Present Illness, all other systems have been reviewed and are negative or noncontributory. Physical Exam Vitals & Measurements T: 36.6 ?C(Temporal Artery) abd: soft, nontender, nondistended; incision without erythema or drainage, no ecchymoses; no seroma or recurrent hernia. Assessment/Plan 1. Reducible right inguinal hernia (K40.90: Unilateral inguinal hernia, without obstruction or gangrene, not specified as recurrent) doing well; next week, gradually resume regular activities; call with problems/questions. 2. Incisional hernia (K43.2: Incisional hernia without obstruction or gangrene) see # 1 Follow-up No qualifying data available Problem List/Past Medical History Ongoing Alopecia areata Anxiety Asthma BMI 37.0-37.9, adult Chronic migraine without aura Diabetes HTN (hypertension) Hyperlipidemia Incisional hernia Radiculopathy of cervical spine Reducible right inguinal hernia Sleep apnea Historical No qualifying data Procedure/Surgical History Repair of right inguinal hernia (07/01/2021), Cervical discectomy (11/19/2020), Biopsy of breast, section, Colonoscopy, Exploratory laparotomy, ANTHONY BSO - Total abdominal hysterectomy and bilateral salpingo-oophorectomy. Medications irbesartan 150 mg Tab, 150 mg= 1 tab(s), Oral, Daily lansoprazole 30 mg Cap-DR, 30 mg= 1 cap(s), Oral, Daily simvastatin 20 mg Tab, 20 mg= 1 tab(s), Oral, Once a day (at bedtime) SUMAtriptan 100 mg Tab, 100 mg= 1 tab(s), Oral, Daily Allergies grepafloxacin (Skin reaction) Social History Alcohol Current, Wine, 1-2 times per week, 06/10/2021 Substance Abuse - Denies Substance Abuse, 06/10/2021 Tobacco Never (less than 100 in lifetime) Tobacco Use:. Never Smokeless Tobacco Use:., 06/10/2021 Family History ALS - Amyotrophic lateral sclerosis: Father. Cardiac arrest: Father. Depression: Brother. Heart disease: Brother. Hypertension: Father and Brother. Suicide: Brother. Immunizations Vaccine Date Status Comments influenza virus vaccine, inactivated - Not Given Patient Refuses Normal [facility] Comment on above: Result Comment: Elec tronically Signed By: KHANG BARTH, Jerry Randolph\.br\Date and Time Signed: 07/24/21 14:01 EDT Ambulatory Visit Summaryon 0 07-10-2021 Ambulatory Visit Summary ANA PALMER :1970 Visit Date:07/10/2021 Ambulatory Visit Instructions Your Diagnosis Reducible right inguinal hernia Incisional hernia Your Care Team Attending Physician - Jerry QUIÑONEZ MD Primary Care Physician - Gina Javier MD This Is Your Medications List Contact prescribing physician if questions or concerns irbesartan (irbesartan 150 mg Tab) lansoprazole (lansoprazole 30 mg Cap-DR) simvastatin (simvastatin 20 mg Tab) sumatriptan (SUMAtriptan 100 mg Tab) Procedures Performed Repair of right inguinal hernia (07/01/2021), Cervical discectomy (11/19/2020), Biopsy of breast, section, Colonoscopy, Exploratory laparotomy, ANTHONY BSO - Total abdominal hysterectomy and bilateral salpingo-oophorectomy. Discharge Vitals Temperature (Temporal Artery) 36.3 ?C What to do next Scheduled Follow-Up Appointments Tuesday 1:20 PM EDT With: Jerry QUIÑONEZ MD Where: General Surgery [facility]/Jens Cardenas [facility] General Surgery Office/Clini c Noteon 07-10-2021 General Surgery Office/Clinic Note Chief Complaint post operative follow up HPI Staff 9 day post operative follow up post right inguinal hernia repair. Minimal burning discomfort. Continues taking Ibuprofen. Denies bleeding or drainage from incision. Reports small lump at end of incision. Bowels moving well. History of Present Illness 9 days s/p right inguinal hernia repair with mesh; had incisional defect and small lipoma exiting external inguinal ring. doing well, mild soreness; no drainage, normal bms; eating well. no fevers.9 days s/p right inguinal hernia repair with mesh; had incisional defect and small lipoma exiting external inguinal ring. Review of Systems ROS - Provider Constitutional: no fever, no sweats, no weight loss. Eyes: no glasses, no blurred vision, no visual loss. ENMT: no dentures, no hoarseness, no swallowing difficulties, no hearing loss, no ear infection(s), no nose bleeds. Cardiovascular: normal blood pressure, no chest pain, regular heartbeat, no heart murmur. Respiratory: no shortness of breath, no cough, no asthma, no wheezing. Gastrointestinal: no nausea, no vomiting, no diarrhea, no constipation, no blood in stool, no change in bowel habits, no abdominal pain, no hepatitis. Genitourinary: no kidney stones, no urine infection, no dysuria. Musculoskeletal: no pain, no weakness. Skin: no changing moles, no rash, no skin lumps. Neurologic: no seizures, no epilepsy, no headache. Psychiatric: no emotional or psychiatric problem. Heme/Lymph: no bleeding problems, no anemia, no blood clots, no transfusions. Allergy/Immunologic: no swollen lymph nodes/glands, no IV drug abuse. Other: Additional ROS info: Except as noted in the above Review of Systems and in the History of Present Illness, all other systems have been reviewed and are negative or noncontributory. Physical Exam Vitals & Measurements T: 36.3 ?C(Temporal Artery) abd: soft, obese, nondistended, incision with glue intact, no erythema or drainage; no ecchymoses; minimal induration. Assessment/Plan 1. Reducible right inguinal hernia (K40.90: Unilateral inguinal hernia, without obstruction or gangrene, not specified as recurrent) doing well, continue no lifting > 10 lbs for 2 1/2 weeks; follow up in 2 weeks, call sooner if problems/questions. 2. Incisional hernia (K43.2: Incisional hernia without obstruction or gangrene) see # 1 Follow-up No qualifying data available Problem List/Past Medical History Ongoing Alopecia areata Anxiety Asthma BMI 37.0-37.9, adult Chronic migraine without aura Diabetes HTN (hypertension) Hyperlipidemia Incisional hernia Radiculopathy of cervical spine Reducible right inguinal hernia Sleep apnea Historical No qualifying data Procedure/Surgical History Repair of right inguinal hernia (07/01/2021), Cervical discectomy (11/19/2020), Biopsy of breast, section, Colonoscopy, Exploratory laparotomy, ANTHONY BSO - Total abdominal hysterectomy and bilateral salpingo-oophorectomy. Medications irbesartan 150 mg Tab, 150 mg= 1 tab(s), Oral, Daily lansoprazole 30 mg Cap-DR, 30 mg= 1 cap(s), Oral, Daily simvastatin 20 mg Tab, 20 mg= 1 tab(s), Oral, Once a day (at bedtime) SUMAtriptan 100 mg Tab, 100 mg= 1 tab(s), Oral, Daily Allergies grepafloxacin (Skin reaction) Social History Alcohol Current, Wine, 1-2 times per week, 06/10/2021 Substance Abuse - Denies Substance Abuse, 06/10/2021 Tobacco Never (less than 100 in lifetime) Tobacco Use:. Never Smokeless Tobacco Use:., 06/10/2021 Family History ALS - Amyotrophic lateral sclerosis: Father. Cardiac arrest: Father. Depression: Brother. Heart disease: Brother. Hypertension: Father and Brother. Suicide: Brother. Immunizations Vaccine Date Status Comments influenza virus vaccine, inactivated - Not Given Patient Refuses Normal [facility] Comment on above: Result Comment: Elec tronically Signed By: KHANG BARTH, Jerry Warren\Date and Time Signed: 07/10/21 14:23 EDT Operative Reporton Operative Report [id number]:127 Normal [facility] Lab Reportson 06-29-2021 Lab Reports [id number]:127 [facility] ECG 12-Leadon 06-24-2021 ECG 12-Lead [id number]#[id number]:127 [facility] Pre-Certification Formon Pre-Certification Form [id number]:127 [facility] RAD - CT Reporton 06-14-2021 RAD - CT Report [id number]#1.00CD:127 [facility] Consent for Procedure/Surger yon 06-11-2021 Consent for Procedure/Surgery [id number]:127 [facility] Ambulatory Visit Summaryon 0 06-10-2021 Ambulatory Visit Summary ESTELAANA Jeffry :1970 Visit Date:06/10/2021 Ambulatory Visit Instructions Your Care Team Attending Physician - KHANG BARTH, Jerry Randolph Primary Care Physician - Gina Javier MD Referring Physician - Gina Javier MD This Is Your Medications List Contact prescribing physician if questions or concerns irbesartan (irbesartan 150 mg Tab) lansoprazole (lansoprazole 30 mg Cap-DR) simvastatin (simvastatin 20 mg Tab) sumatriptan (SUMAtriptan 100 mg Tab) Procedures Performed Cervical discectomy (11/19/2020), Biopsy of breast, section, Colonoscopy, Exploratory laparotomy, ANTHONY BSO - Total abdominal hysterectomy and bilateral salpingo-oophorectomy. Discharge Vitals Temperature (Temporal Artery) 36.6 ?C Heart Rate (Peripheral) 72 Respiratory Rate 16 Blood Pressure 142/92 Height 162.5 cm Height 162.5 cm Weight 99.3 kg Weight 99.3 kg BMI 37.6 Medications What How Much When Instructions Unchanged irbesartan (irbesartan 150 mg Tab) 1 Tablets By Mouth Every day Contact prescribing physician if questions or concerns Unchanged lansoprazole (lansoprazole 30 mg Cap-DR) 1 Capsules By Mouth Every day Contact prescribing physician if questions or concerns Unchanged simvastatin (simvastatin 20 mg Tab) 1 Tablets By Mouth Once a day (at bedtime) Contact prescribing physician if questions or concerns Unchanged sumatriptan (SUMAtriptan 100 mg Tab) 1 Tablets By Mouth Every day Contact prescribing physician if questions or concerns Medications and Immunizations Administered Not Given influenza virus vaccine, inactivated, Patient Refuses Allergies grepafloxacin (Skin reaction) Problems Ongoing - Any problem that you are currently receiving treatment for. Alopecia areata Anxiety Asthma BMI 37.0-37.9, adult Chronic migraine without aura Diabetes HTN (hypertension) Hyperlipidemia Radiculopathy of cervical spine Sleep apnea Normal [facility] Physician Referralon 022 Physician Referral [id number]#1.00CD:127 Normal [facility] FLUORO FOR SURGICAL PROCEDUR ESOrdered By: Mejia Griffin on 11-18-2020 Jamie, Chpo Incoming R adiant Results From [employer] - 11/18/2020 2:23 PM EDT EXAMINATION: FLUORO FOR SURGICAL PROCEDURES CLINICAL HISTORY: R52 Pain ICD10 COMPARISONS: None available. FINDINGS: Fluoroscopic assistance was provided during ACDF, C5-6 and C6-7 The total radiation time is 31.9 seconds, radiation dose is 3.62mGy. IMPRESSION: Intraprocedural fluoroscopic support has been provided. Please refer to the procedure report. [facility] Work Phone: [facility] Work Phone: Surgical Specimenon 11-19-19 21 Surgical Specimen [facility] [address] [place] [address] FINAL SURGICAL PATHOLOGY REPORT Patient Name: ANA PALMER Accession No: [id number] Age Sex: 1970 Location: DIS [id number] Account No: [id number] Collected: 11/18/2020 Med Rec No: [id number] Received: 11/18/2020 Attend Phys: MEJIA GRIFFIN Completed: 11/20/2020 Perform Phys: MEJIA GRIFFIN FINAL DIAGNOSIS: DISC- FRAGMENT OF BONE AND INTERVERTEBRAL DISC MATERIAL WITH REACTIVE CHANGES ALIFA/ALIFA CLINICAL INFORMATION: Anterior cervical discectomy fusion C5-6, C6-7 with posterior decompression, laminoplasty spanning from C3-4-5-6. Preop diagnosis: Stenosis, radiculopathy, spondylosis, cord compression. SPECIMEN: Disc GROSS DESCRIPTION: Received is one container labeled with the patient's name and designated spine . The specimen consists of several portions of pink-white rubbery tissue and bone, 3 x 2 x 0.5 cm in aggregate. The specimen is submitted in toto in three cassettes following decalcification. LUAN CPT: 21652 X1 23025 X1 JERAMIE ERVIN M.D. 11/20/2020 Electronically signed out by Page 1 of 1 Invalid Interpretation Code [facility] Comment on above: Performed By: #### S UR #### [facility] [address] [place] [address] COVID-19, PCRon 11-08-2020 SARS-CoV-2 (COVID-19) RNA AISHA+probe Ql (Unsp spec) Not detected Normal Not Detect [facility] Comment on above: Result Comment: Test ing was performed using [employer] SARS-CoV-2 Assay. Negative results do not preclude SARS?CoV-2 infection and should not be used as the sole basis for patient management decisions. Negative results must be combined with clinical observations, patient history, and epidemiological information. Positive results are indicative of the presence of SARS-CoV-2 RNA; clinical correlation with patient history and other diagnostic information is necessary to determine patient infection status. Analyte targets may persist in vivo independent of virus viability. Positive results do not rule out bacterial infection or co-infection with other viruses. This test is a Real-Time reverse transcriptase polymerase chain reaction based qualitative in vitro diagnostic test intended for the qualitative detection of nucleic acid from SARS-CoV-2 in nasopharyngeal swab specimens collected from individuals suspected of COVID?19 by their health care provider only for use under the FDA?s Emergency Use Authorization (EUA). The FDA recognizes that if a nasopharyngeal specimen is not available, alternate specimen types may be obtained with a swab including anterior nares, oropharyngeal and mid-turbinate specimens. Patient Fact Sheet: https://www.fda.gov/media/550411/download Provider Fact Sheet: https://www.fda.gov/media/132919/download FDA Specimen Types Link: https://www.fda.gov/medical-devices/ sbscskgdfje-hsfrb-28-qnp-qgvcirj-pwssldu/kjrp-hxkubdh-zxfk-cov-2 Methodology: RT-PCR Performed By: #### C OVB #### [facility] [address] [place] [address] CBC With Platelet No Differe ntialon 11-07-2020 Erythrocyte distribution width (RBC) [Ratio] 15.8 % Critically high 11.5-14.5 [facility] Comment on above: Performed By: #### C BCND #### [facility] [address] [place] [address] Hematocrit (Bld) [Volume fraction] 37.5 % Normal 37.0-47.0 [facility] Comment on above: Performed By: #### C BCND #### [facility] [address] [place] [address] Hemoglobin (Bld) [Mass/Vol] 12.1 g/dL Normal 12.0-16.0 [facility] Comment on above: Performed By: #### C BCND #### [facility] [address] [place] [address] MCH (RBC) [Entitic mass] 26.2 pg Low 27.0-31.3 [facility] Comment on above: Performed By: #### C BCND #### [facility] [address] [place] [address] MCHC 32.3 % Low 33.0-37.0 [facility] Comment on above: Performed By: #### C BCND #### [facility] [address] [place] [address] MCV (RBC) [Entitic vol] 81.3 fL Low 82.0-100.0 [facility] Comment on above: Performed By: #### C BCND #### [facility] [address] [place] [address] Platelets (Bld) [#/Vol] 301 10*3/uL Normal 130-400 [facility] Comment on above: Performed By: #### C BCND #### [facility] [address] [place] [address] RBC (Bld) [#/Vol] 4.61 10*6/uL Normal 4.20-5.40 [facility] Comment on above: Performed By: #### C BCND #### [facility] [address] [place] [address] WBC (Bld) [#/Vol] 3.7 10*3/uL Low 4.8-10.8 [facility] Comment on above: Performed By: #### C BCND #### [facility] [address] [place] [address] Partial Thromboplastin Timeo n 11-07-2020 aPTT Coag (Bld) [Time] 28.0 s Normal 24.4-36.8 [facility] Comment on above: Result Comment: Effe ctive 02/20/2020: Heparin Therapeutic Range: 64.0 ? 98.0 seconds. Performed By: #### P TT #### [facility] [address] [place] [address] Prothrombin Timeon INR Coag (PPP) [Relative time] 1.0 {INR} Normal [facility] Comment on above: Performed By: #### P T #### [facility] [address] [place] [address] PT Coag (PPP) [Time] 13.3 s Normal 12.3-14.9 [facility] Comment on above: Performed By: #### P T #### [facility] [address] [place] [address] Type and Screen Capture 3 sc rn cellon 11-07-2020 Type and Screen Capture 3 scrn cell PATIENT: ESTELA PEREZ LOC: [facility] BILL# : [id number] : 1970 SEX: F ORDERED BY: TIM CASTILLO ORDERED : 11/07/2020 13:32 COLLECTED: 11/07/2020 13:32 ORDER : [id number] RECEIVED : 11/07/2020 19:33 TEST NAME RESULT UNITS RANGES ABN FL ST ABORH Capture O POS F Antibody 3 Cell Scrn Captu NEG F Normal [facility] Comment on above: Performed By: #### T S3C #### [facility] [address] [facility] [place] [address] MRI CERVICAL SPINE WO CONTRA STOrdered By: Mejia Griffin on 09-10-2020 There is no acute fr acture or subluxation. Distal esophageal body height. The cord is normal in course and caliber without signal abnormalities. There is multilevel spondylosis including intervertebral disc space narrowing at each level. There is a to moderate narrowing of the central canal and a multifactorial basis of 30 degrees of facet arthrosis and neural foraminal narrowing as described in detail at each level above. There is inhomogeneous signal of the thyroid gland, may consider dedicated thyroid ultrasound imaging. [facility] [employer] Work Phone: EXAMINATION: MRI CER VICAL SPINE WO CONTRAST CLINICAL HISTORY: M47.12 Cervical spondylosis with myelopathy ICD10 COMPARISONS: NONE AVAILABLE TECHNIQUE: Multiplanar multisequence MRI images of the cervical spine were obtained without contrast. FINDINGS: There is straightening of the lordotic curvature of the cervical spine which may be secondary to positioning versus muscle spasm. There is no acute fracture. There is preservation of the vertebral body heights. There is intervertebral disc desiccation and disc space narrowing at every level with moderate disc space narrowing from C4 to C7. The bone marrow signal is within normal limits. The spinal cord is normal in course and caliber without areas of signal abnormality. There is no prevertebral soft tissue swelling. Anterior soft tissues demonstrate inhomogeneous signal within the thyroid gland.. The craniocervical junction is unremarkable. C2-3: There is a 2 mm symmetric disc bulge flattening the thecal sac and mildly abutting the cord without central canal narrowing. There is no neuroforaminal narrowing. There is mild bilateral facet arthrosis. C3-4: There is a 4 mm distal aspect complex flattening the anterior portion of the thecal sac and abutting the cord with mild central canal narrowing. There is mild bilateral facet and uncovertebral joint hypertrophy producing mild bilateral neural foraminal narrowing. C4-5: There is a 4 mm to suspect complex flattening the thecal sac and abutting the cord and mildly flattening the cord with moderate central canal narrowing. There is moderate bilateral facet and uncovertebral joint hypertrophy with severe bilateral neural foraminal narrowing. C5-6: There is a 4 mm dysesthetic complex asymmetric toward the left side flattening the thecal sac but not upon the cord with mild central canal narrowing. There is mild bilateral facet arthrosis producing mild right and moderate left neural foraminal narrowing. C6-7: There is a 4 mm disaffect complex eccentric towards the left side flattening the thecal sac and abutting the cord especially on the left with mild central canal narrowing. There is mild bilateral facet arthrosis with mild left neural foraminal narrowing. The right neural foramen is unremarkable. C7-T1: There is a less than 2 mm discussed Leif complex asymmetric toward the left side without significant central canal narrowing. The right diaphragm is unremarkable. There is mild left facet and uncovertebral joint hypertrophy with mild left neural foraminal narrowing. [employer] Work Phone: Jamie, Chpo Incoming R adiant Results From [employer] - 09/10/2020 12:02 PM EDT EXAMINATION: MRI CERVICAL SPINE WO CONTRAST CLINICAL HISTORY: M47.12 Cervical spondylosis with myelopathy ICD10 COMPARISONS: NONE AVAILABLE TECHNIQUE: Multiplanar multisequence MRI images of the cervical spine were obtained without contrast. FINDINGS: There is straightening of the lordotic curvature of the cervical spine which may be secondary to positioning versus muscle spasm. There is no acute fracture. There is preservation of the vertebral body heights. There is intervertebral disc desiccation and disc space narrowing at every level with moderate disc space narrowing from C4 to C7. The bone marrow signal is within normal limits. The spinal cord is normal in course and caliber without areas of signal abnormality. There is no prevertebral soft tissue swelling. Anterior soft tissues demonstrate inhomogeneous signal within the thyroid gland.. The craniocervical junction is unremarkable. C2-3: There is a 2 mm symmetric disc bulge flattening the thecal sac and mildly abutting the cord without central canal narrowing. There is no neuroforaminal narrowing. There is mild bilateral facet arthrosis. C3-4: There is a 4 mm distal aspect complex flattening the anterior portion of the thecal sac and abutting the cord with mild central canal narrowing. There is mild bilateral facet and uncovertebral joint hypertrophy producing mild bilateral neural foraminal narrowing. C4-5: There is a 4 mm to suspect complex flattening the thecal sac and abutting the cord and mildly flattening the cord with moderate central canal narrowing. There is moderate bilateral facet and uncovertebral joint hypertrophy with severe bilateral neural foraminal narrowing. C5-6: There is a 4 mm dysesthetic complex asymmetric toward the left side flattening the thecal sac but not upon the cord with mild central canal narrowing. There is mild bilateral facet arthrosis producing mild right and moderate left neural foraminal narrowing. C6-7: There is a 4 mm disaffect complex eccentric towards the left side flattening the thecal sac and abutting the cord especially on the left with mild central canal narrowing. There is mild bilateral facet arthrosis with mild left neural foraminal narrowing. The right neural foramen is unremarkable. C7-T1: There is a less than 2 mm discussed Leif complex asymmetric toward the left side without significant central canal narrowing. The right diaphragm is unremarkable. There is mild left facet and uncovertebral joint hypertrophy with mild left neural foraminal narrowing. IMPRESSION: There is no acute fracture or subluxation. Distal esophageal body height. The cord is normal in course and caliber without signal abnormalities. There is multilevel spondylosis including intervertebral disc space narrowing at each level. There is a to moderate narrowing of the central canal and a multifactorial basis of 30 degrees of facet arthrosis and neural foraminal narrowing as described in detail at each level above. There is inhomogeneous signal of the thyroid gland, may consider dedicated thyroid ultrasound imaging. [employer] Work Phone: [employer] Work Phone: MRI CERVICAL SPINE WO CONTRA SToemily 09-09-2020 MRI CERVICAL SPINE WO CONTRAST EXAMINATION: MRI CERVICAL SPINE WO CONTRAST CLINICAL HISTORY: M47.12 Cervical spondylosis with myelopathy ICD10 COMPARISONS: NONE AVAILABLE TECHNIQUE: Multiplanar multisequence MRI images of the cervical spine were obtained without contrast. FINDINGS: There is straightening of the lordotic curvature of the cervical spine which may be secondary to positioning versus muscle spasm. There is no acute fracture. There is preservation of the vertebral body heights. There is intervertebral disc desiccation and disc space narrowing at every level with moderate disc space narrowing from C4 to C7. The bone marrow signal is within normal limits. The spinal cord is normal in course and caliber without areas of signal abnormality. There is no prevertebral soft tissue swelling. Anterior soft tissues demonstrate inhomogeneous signal within the thyroid gland.. The craniocervical junction is unremarkable. C2-3: There is a 2 mm symmetric disc bulge flattening the thecal sac and mildly abutting the cord without central canal narrowing. There is no neuroforaminal narrowing. There is mild bilateral facet arthrosis. C3-4: There is a 4 mm distal aspect complex flattening the anterior portion of the thecal sac and abutting the cord with mild central canal narrowing. There is mild bilateral facet and uncovertebral joint hypertrophy producing mild bilateral neural foraminal narrowing. C4-5: There is a 4 mm to suspect complex flattening the thecal sac and abutting the cord and mildly flattening the cord with moderate central canal narrowing. There is moderate bilateral facet and uncovertebral joint hypertrophy with severe bilateral neural foraminal narrowing. C5-6: There is a 4 mm dysesthetic complex asymmetric toward the left side flattening the thecal sac but not upon the cord with mild central canal narrowing. There is mild bilateral facet arthrosis producing mild right and moderate left neural foraminal narrowing. C6-7: There is a 4 mm disaffect complex eccentric towards the left side flattening the thecal sac and abutting the cord especially on the left with mild central canal narrowing. There is mild bilateral facet arthrosis with mild left neural foraminal narrowing. The right neural foramen is unremarkable. C7-T1: There is a less than 2 mm discussed Leif complex asymmetric toward the left side without significant central canal narrowing. The right diaphragm is unremarkable. There is mild left facet and uncovertebral joint hypertrophy with mild left neural foraminal narrowing. IMPRESSION: There is no acute fracture or subluxation. Distal esophageal body height. The cord is normal in course and caliber without signal abnormalities. There is multilevel spondylosis including intervertebral disc space narrowing at each level. There is a to moderate narrowing of the central canal and a multifactorial basis of 30 degrees of facet arthrosis and neural foraminal narrowing as described in detail at each level above. There is inhomogeneous signal of the thyroid gland, may consider dedicated thyroid ultrasound imaging. Interpreted by: Leandro Spaulding MD Signed by: Leandro Spaulding MD 09/10/20 Final result Normal [facility] COVID-19, NAAon 09-04-2020 SARS-CoV-2 (COVID-19) RNA AISHA+probe Ql (Unsp spec) Not detected Normal Not Detect [facility] Comment on above: Result Comment: This nucleic acid amplification test was developed and its performance characteristics determined by [employer]. Nucleic acid amplification tests include RT-PCR and TMA. This test has not been FDA cleared or approved. This test has been authorized by FDA under an Emergency Use Authorization (EUA). This test is only authorized for the duration of time the declaration that circumstances exist justifying the authorization of the emergency use of in vitro diagnostic tests for detection of SARS-CoV-2 virus and/or diagnosis of COVID-19 infection under section 564(b)(1) of the Act, 21 U.S.C. 360bbb-3(b) (1), unless the authorization is terminated or revoked sooner. When diagnostic testing is negative, the possibility of a false negative result should be considered in the context of a patient's recent exposures and the presence of clinical signs and symptoms consistent with COVID-19. An individual without symptoms of COVID-19 and who is not shedding SARS-CoV-2 virus would expect to have a negative (not detected) result in this assay. Performed at: [address] [id number] Laboratory Veterinarian: Lane Rivera PhD, Phone: [phone] Performed By: #### I RCOV #### [facility] [address] [place] [address] COVID-19, NAAon 09-02-2020 Source Swab Anterior nares Normal [facility] Comment on above: Performed By: #### I RCOV #### [facility] [address] [place] [address] Vital Signs Date Time Vital Sign Value Performing Clinician Facility 02-16-2023 15:45-0400 Body height 162.56 cm [employer] Other [facility] Other 02-16-2023 15:45-0400 Body mass index (BMI) [Ratio] 25.4 kg/m2 [employer] Other [facility] Other 02-16-2023 15:45-0400 Body weight 67.13 kg [employer] Other [facility] Other 01-31-2023 18:30-0400 Diastolic blood pressure 78 mm[Hg] MD Gina Javier Work Phone: [facility] 01-31-2023 18:30-0400 Heart rate 98 /min MD Gina Javier Work Phone: [facility] 01-31-2023 18:30-0400 Respiratory rate 16 /min MD Gina Javier Work Phone: [facility] 01-31-2023 18:30-0400 SaO2% (BldA) [Mass fraction] 96 % MD Gina Javier Work Phone: [facility] 01-31-2023 18:30-0400 Systolic blood pressure 116 mm[Hg] MD Gina Javier Work Phone: [facility] 01-31-2023 16:45-0400 Body temperature 98 [degF] MD Gina Javier Work Phone: [facility] 01-31-2023 16:15-0400 Inhaled oxygen flow rate 10 L/min MD Gina Javier Work Phone: [facility] 01-31-2023 12:49-0400 Body height 160.02 cm MD Gina Javier Work Phone: [facility] 01-31-2023 12:49-0400 Body mass index (BMI) [Ratio] 26.5 kg/m2 MD Gina Javier Work Phone: [facility] 01-31-2023 12:49-0400 Body weight 68 kg MD Gina Javier Work Phone: [facility] 01-27-2023 15:30-0400 Body height 162.56 cm Edison Jeremías II Other [facility] Other 01-27-2023 15:30-0400 Body mass index (BMI) [Ratio] 25.44 kg/m2 Edison [place] [facility] Other [facility] Other 01-27-2023 15:30-0400 Body weight 67.22 kg Edison [place] II Other [facility] Other 07-05-2022 12:15-0400 Body height 162.56 cm Sawyer Greer Other [facility] Other 01-26-2022 10:40-0400 Body height 162.56 cm Santiago Cano Other [facility] Other 01-26-2022 10:40-0400 Body mass index (BMI) [Ratio] 36.9 kg/m2 Santiago Cano Other [facility] Other 01-26-2022 10:40-0400 Body weight 97.52 kg Santiago Cano Other [facility] Other 07-24-2021 13:31-0400 Body temperature 97.88 [degF] Jerry QUIÑONEZ [facility] [place] 07-10-2021 14:00-0400 Body temperature 97.34 [degF] Jerry QUIÑONEZ [facility] [place] 11-19-2020 08:27-0400 Body temperature 98.1 [degF] Mejia Griffin MD Work Phone: [employer] Work Phone: 11-19-2020 08:27-0400 Diastolic blood pressure 78 mm[Hg] Mejia Griffin MD Work Phone: [employer] Work Phone: 11-19-2020 08:27-0400 Heart rate 109 /min Mejia Griffin MD Work Phone: [employer] Work Phone: 11-19-2020 08:27-0400 SaO2% (BldA) [Mass fraction] 98 % Mejia Griffin MD Work Phone: [employer] Work Phone: 11-19-2020 08:27-0400 Systolic blood pressure 118 mm[Hg] Mejia Griffin MD Work Phone: [employer] Work Phone: 11-19-2020 04:29-0400 Respiratory rate 18 /min Mejia Griffin MD Work Phone: [employer] Work Phone: 11-18-2020 08:30-0400 Body height 162.6 cm Mejia Griffin MD Work Phone: [employer] Work Phone: 11-18-2020 08:30-0400 Body mass index (BMI) [Ratio] 34.84 kg/m2 Mejia Griffin MD Work Phone: [employer] Work Phone: 11-18-2020 08:30-0400 Body weight 92.08 kg Mejia Griffin MD Work Phone: [employer] Work Phone: 09-09-2020 14:57-0400 Diastolic blood pressure 75 mm[Hg] [employer] Phone: 09-09-2020 14:57-0400 Heart rate 93 /min [employer] Work Phone: 09-09-2020 14:57-0400 Respiratory rate 16 /min [employer] Phone: 09-09-2020 14:57-0400 Systolic blood pressure 169 mm[Hg] [employer] Work Phone: 09-09-2020 12:41-0400 Body height 162.6 cm [employer] Work Phone: 09-09-2020 12:41-0400 Body mass index (BMI) [Ratio] 34.67 kg/m2 [employer] Phone: 09-09-2020 12:41-0400 Body weight 91.63 kg [employer] Phone: 09-09-2020 12:41-0400 SaO2% (BldA) [Mass fraction] 99 % [employer] Work Phone: Encounters Encounter Date Encounter Type Care Provider Facility Start: 04-20-2023 Office outpatient vi sit 15 minutes [facility] Start: 04-20-2023 End: 04-20-2023 ambulatory Gina Javier Facility:[facility] Start: 04-20-2023 End: 04-20-2023 ambulatory MD Gina Javier Work Phone: [facility] Work Phone: Start: 04-20-2023 End: 04-20-2023 Patient encounter procedure MD Gina Javier Work Phone: [facility] Start: 03-17-2023 End: 03-17-2023 ambulatory Gina Javier Facility:[facility] Start: 03-17-2023 End: 03-17-2023 ambulatory MD Gina Javier Work Phone: [facility] Work Phone: Start: 03-17-2023 End: 03-17-2023 Patient encounter procedure MD Gina Javier Work Phone: [facility] Start: 03-03-2023 (Post-Op) Post-Op Edison [place] [facility] Start: 03-03-2023 End: 03-03-2023 ambulatory Edison Jeremías II Other [facility] Other Start: 02-16-2023 (Post-Op) Post-Op Edison [place] II [facility] Start: 02-16-2023 End: 02-16-2023 ambulatory Edison [place] II Other [facility] Other Start: 02-10-2023 (Post-Op) Post-Op Edison Jeremías II [facility] Start: 02-10-2023 End: 02-10-2023 ambulatory Edsion [place] II Other [facility] Other Start: 02-09-2023 End: 02-09-2023 ambulatory Edison [place] II Other [facility] Other Start: 02-09-2023 Telephone encounter Edison Jeremías II [facility] Start: 01-31-2023 End: 01-31-2023 ambulatory Edison M Jeremías II Facility:[facility] Start: 01-31-2023 End: 01-31-2023 Admission to same day surgery center MD Gina Javier Work Phone: [facility] [place] Start: 01-31-2023 End: 01-31-2023 ambulatory MD Gina Javier Work Phone: [facility] Work Phone: Start: 01-27-2023 End: 01-27-2023 ambulatory Edison Veronica II Facility:[facility] Start: 01-27-2023 End: 01-27-2023 Discharged Recurring MD Gina Javier Work Phone: [facility] [place] Start: 01-27-2023 End: 01-27-2023 ambulatory MD Gina Javier Work Phone: [facility] Other Start: 01-27-2023 Patient encounter procedure Edison Jeremías II [facility] Start: 01-21-2023 (Prolonged) Prolonge d Services Edison Jeremías II [facility] Start: 01-21-2023 End: 01-21-2023 ambulatory Edison Jeremías II Other [facility] Other Start: 01-20-2023 End: 01-20-2023 ambulatory Edison Pastorle II Facility:[facility] Start: 01-20-2023 End: 01-20-2023 ambulatory MD Gina Javier Work Phone: [facility] Work Phone: Start: 01-20-2023 End: 01-20-2023 Patient encounter procedure MD Gina Javier Work Phone: [facility] Work Phone: Start: 12-24-2022 End: 12-24-2022 ambulatory Gina Javier Facility:[facility] Start: 12-24-2022 End: 12-24-2022 ambulatory MD Gina Javier Work Phone: [facility] Work Phone: Start: 12-24-2022 End: 12-24-2022 Patient encounter procedure MD Gina Javier Work Phone: [facility] Start: 12-24-2022 End: 12-24-2022 ambulatory MD Gina Javier Work Phone: [facility] Work Phone: Start: 12-24-2022 End: 12-24-2022 Patient encounter procedure MD Gina Javier Work Phone: [facility] Start: 12-16-2022 End: 12-16-2022 ambulatory Sawyer Greer Other [facility] Other Start: 12-16-2022 Office outpatient vi sit 25 minutes Sawyer Greer [facility] [place] Start: 12-16-2022 Telephone encounter Sawyer Greer [facility] [place] Start: 09-09-2022 End: 09-10-[address] GINA JAVIER . Facility: Start: 09-03-2022 End: 09-03-2022 ambulatory Sawyer Greer Facility:[facility] Start: 08-24-2022 End: 08-24-2022 Patient encounter procedure MD Gina Javier Work Phone: [facility] Start: 08-24-2022 End: 08-24-2022 ambulatory MD Gina Javier Work Phone: [facility] Work Phone: Start: 08-24-2022 Office outpatient vi sit 25 minutes Sawyer Greer [facility] [place] Start: 08-16-2022 (Procedure) Tulio Greer [facility] Start: 08-16-2022 End: 08-16-2022 ambulatory Sawyer Greer Other [facility] Other Start: 08-04-2022 End: 08-04-2022 ambulatory Sawyer Greer Other [facility] Other Start: 08-04-2022 Office outpatient vi sit 25 minutes Sawyer Greer [facility] [place] Start: 07-11-2022 Encounter for genera l adult medical examination without abnormal findings DR GINA JAVIER . [facility] Start: 07-08-2022 End: 07-09-[address] GINA JAVIER . Facility:[facility] Start: 07-08-2022 End: 07-09-2022 Encounter for general adult medical examination without abnormal findings DR GINA JAVIER . Facility:[facility] Start: 07-05-2022 End: 07-05-2022 ambulatory Sawyer Greer Other [facility] Other Start: 07-05-2022 Office outpatient vi sit 25 minutes Sawyer Greer [facility] [place] Start: 04-19-[address] GINA JAVIER . Facili ty:[facility] Start: 02-23-2022 End: 02-23-2022 ambulatory Sawyer Greer Other [facility] Other Start: 02-23-2022 Office outpatient vi sit 15 minutes Sawyer Greer [facility] [place] Start: 02-15-2022 (Procedure) Short Sawyer Greer [facility] Start: 02-15-2022 End: 02-15-2022 ambulatory Sawyer Greer Other [facility] Other Start: 02-01-2022 End: 02-01-2022 ambulatory Sawyer Greer Other [facility] Other Start: 02-01-2022 Office outpatient ne w 45 minutes Sawyer Greer [facility] [place] Start: 02-01-2022 Telephone encounter Sawyer Greer [facility] [employer] Start: 01-26-2022 End: 01-26-2022 ambulatory Santiago Cano Other [facility] Other Start: 01-26-2022 Office outpatient ne w 45 minutes Santiago Cano [facility] Neurosurgery Start: 12-24-2021 End: 12-25-[address] GINA JAVIER . Facility:[facility] Start: 11-26-2021 End: 11-27-[address] GINA JAVIER . Facility:[facility] Start: 07-24-2021 End: 07-24-2021 Patient encounter procedure Jerry QUIÑONEZ General [facility] [place] Start: 07-10-2021 End: 07-10-2021 Patient encounter procedure Jerry QUIÑONEZ General Surgery [facility] [place] Start: 11-18-2020 End: 11-19-2020 Evaluation and management of inpatient [facility] Start: 11-18-2020 End: 11-21-2020 ambulatory MEJIA GRIFFIN [facility] Start: 11-18-2020 End: 11-19-2020 Evaluation and management of inpatient Mejia Griffin MD Work Phone: [facility] Comment on above: Post-op pain (Primar y Dx); Pain; Muscle spasm Start: 11-18-2020 End: 11-20-2020 Subsequent hospital visit by physician Mejia Griffin MD Work Phone: [facility] Radiology Comment on above: Pain Start: 09-09-2020 End: 09-12-2020 ambulatory [facility] Start: 09-09-2020 End: 09-11-2020 Subsequent hospital visit by physician Andres Mri Room 2 [facility] MRI Comment on above: Cervical spondylosis with myelopathy; Cervical stenosis of spine; Cervical radiculopathy Procedures Date Procedure Procedure Detail Performing Clinician Start: 04-20-2023 Plain X-ray of left hip MD Gina Javier Work Phone: Start: 03-17-2023 Plain X-ray of left hip MD Gina Javier Work Phone: Start: 01-31-2023 Plain X-ray of left hip MD Gina Javier Work Phone: Start: 01-31-2023 Plain X-ray of left hip MD Gina Javier Work Phone: Start: 01-31-2023 Total replacement of left hip joint MD Gina Javier Work Phone: Start: 01-20-2023 Antibody screen Sawyer Greer Comment on above: Order Comment: Date of Surgery: [id number] Result Comment: PERF ORMED BY: [facility] [place] [address] JUDGE ERIC ABDI M.D. Start: 12-24-2022 Methicillin resistan t Staphylococcus aureus culture MD Gina Javier Work Phone: Start: 12-24-2022 Plain X-ray of left hip MD Gina Javier Work Phone: Start: 07-01-2021 Repair of right ingu inal hernia Jerry QUIÑONEZ Start: 11-19-2020 Excision of cervical intervertebral disc Jerry QUIÑONEZ Comment on above: C5-C7 Start: 11-18-2020 Fluoroscopy during operation Mejia Griffin MD Work Phone: Start: 09-09-2020 Mri spinal canal cer vical w/o contrast matrl Mejia Griffin MD Work Phone: Biopsy of breast Jerry Chaparro Comment on above: right section Jerry Chaparro Colonoscopy Jerry QUIÑONEZ Exploratory laparotomy Luis suman QUIÑONEZ Total abdominal hysterectomy with bilateral salpingo-oophorectomy Jerry QUIÑONEZ Plan of Treatment Date Care Activity Detail Author Start: 01-31-2023 [facility] Start: 01-31-2023 [facility] Start: 01-31-2023 Physical therapy procedure [facility] Start: 01-20-2023 [facility] Start: 12-24-2022 MRSA Culture MRSA Culture [facility] Start: 12-17-2020 Influenza vaccination [facility] Phone: Start: 12-05-2020 End: 12-05-2020 Patient encounter procedure 12/05/2020 Office Visit Neurosurgery Mejia Griffin MD [address] [employer] [facility] [address] [place], [place] [id number] [facility] Neurosurgery Start: 09-19-2020 End: 09-19-2020 Patient encounter procedure 09/19/2020 Office Visit Neurosurgery Mejia Griffin MD [address] [employer] [address] [place] [address] [facility] Neurosurgery Start: 12-13-2019 Screening for malign ant neoplasm of breast Breast cancer screen [employer] Phone: Start: 12-13-2019 Screening for malign ant neoplasm of colon Colon cancer screen colonoscopy [employer] [facility] Phone: Start: 12-13-2019 Shingles Vaccine (1 of 2) Shingles Vaccine (1 of 2) [facility] [facility] Phone: Start: 2014 Screening for malign ant neoplasm of colon Colon cancer screen colonoscopy [facility] [facility] Phone: Start: 2009 Diabetes screen Diabetes screen [employer] Phone: Start: 1990 Screening for malign ant neoplasm of cervix Cervical cancer screen [facility] [facility] Phone: Start: 1988 DTaP/Tdap/Td vaccine (1 - Tdap) DTaP/Tdap/Td vaccine (1 - Tdap) [facility] Phone: Start: 1984 HIV screening HIV screen [employer] [facility] Work Phone: Start: 1981 COVID-19 Vaccine (1) COVID-19 Vaccin e (1) [facility] Phone: Start: 12-13-1979 Lipid panel Lipid screen [employer] [facility] [employer] Phone: Start: 1969 Creatinine [facility] Phone: Start: 1969 Hepatitis C screening Hepatitis C sc reen [facility] [facility] Phone: Start: 1969 Potassium monitoring Potassium monit oring [facility] [facility] Phone: Continuous pulse oximetry Pulse oximetry, continuous Respiratory Care Routine Every 4hr until discontinued starting 11/18/2020 [employer] Phone: Comment on above: Every 4hr until disc ontinued starting 11/18/2020 Cotinine [Mass/volum e] in Serum or Plasma [facility] End: 11-18-2020 Fluoroscopy during operation FLUORO FOR SURGICAL PROCEDURES Imaging Routine Pain Once for 1 Occurrences starting 11/18/2020 until 11/18/2020 [facility] [facility] Phone: Comment on above: Once for 1 Occurrenc es starting 11/18/2020 until 11/18/2020 Fluoroscopy during operation FLUORO FOR SURGICAL PROCEDURES Imaging Routine Pain 11/18/2020 1:30 PM EDT [facility] [facility] Phone: Glucose measurement estimated from glycated hemoglobin [facility] Methicillin resistan t Staphylococcus aureus [Presence] in Unspecified specimen by Organism specific culture [facility] Nicotine [Mass/volum e] in Serum or Plasma [facility] Oxygen therapy [[facility]ini [facility] Data Set] [facility] [facility] Phone: Comment on above: Daily until disconti nued starting 09/09/2020 Daily until disconti nued starting 11/18/2020 Phase I & II - meter ed glucose Phase I & II - metered glucose Point of Care Testing Routine As Needed until discontinued starting 09/09/2020 [employer] Phone: Comment on above: As Needed until disc ontinued starting 09/09/2020 Spirometry panel Incentive joaquín metry Respiratory Care Routine Every 2hr while awake until discontinued starting 09/09/2020 [employer] Work Phone: Comment on above: Every 2hr while awak e until discontinued starting 09/09/2020 Surgical Pathology Russ Reyes [facility] Work Phone: Comment on above: Release Upon Orderin g for 1 Occurrences starting 11/18/2020 End: 11-18-2020 Surgical Pathology Surgical Pathology Lab Routine Once for 1 Occurrences starting 11/18/2020 until 11/18/2020 [employer] Work Phone: Comment on above: Once for 1 Occurrenc es starting 11/18/2020 until 11/18/2020 [facility] Immunizations Immunization Date Immunization Notes Care Provider Fa laviniaty NEGATED: Highlighted row has not occurred!06-10-2021 influenza virus vaccine, unspecified formulation Jerry KHANG General Surgery [place] Payers Date Payer Category Payer Self-pay [id number] 2020 Private Health Insurance [id number] 2020 Private Health Insurance [id number] 1969 Unknown [id number] [id number] 1969 Unknown [id number] [id number] 1969 Unknown [id number] 2.16.840.1.072312.3.579.2.182 1969 Unknown [id number] 2.16.840.1.907417.3.579.2.593 1969 Unknown [id number] 2.16.840.1.822926.3.579.2.593 1969 Unknown [id number] 2.16.840.1.678337.3.579.2.593 1969 Unknown [id number] 2.16.840.1.186886.3.579.2.593 1969 Unknown [id number] 2.16.840.1.784297.3.579.2.593 1960 [place] [id number] [id number] 1960 Self-pay [id number] [place] [id number] [id number] Private Health Insurance [employer] [id number] Unknown [id number] [id number] Unknown [id number] [id number] Unknown [id number] 2.16.840.1.837034.3.579.2.531 Unknown [id number] 2.16.840.1.094924.3.579.2.531 Unknown [id number] 2.16.840.1.217372.3.579.2.531 Unknown [id number] 2.16840.1.764341.3.579.2.531 Unknown [id number] [id number] Unknown [id number] [id number] Social History Date Type Detail Facility Start: 09-02-2020 End: 01-31-2023 Tobacco smoking status WVIS Never smoker [employer] Work Phone: Start: 09-02-2020 End: 11-20-2020 Tobacco use and exposure Never used [employer] Start: 1970 Sex Assigned At Not on file [employer] Work Phone: Start: 11-07-2020 History 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 5 [employer] Work Phone: Start: 11-07-2020 History SDOH Food Worry 1 [facility] [facility] Phone: Start: 1970 Sex Assigned At Female [employer] Work Phone: Exposure to SARS-CoV -2 (event) Not sure [employer] Tobacco smoking status Never Gener al Surgery [facility] Sex Assigned At Female Genera l [facility] Medical Equipment Procedure Code Equipment Code Equipment Original Text Equipment Identifier Dates Arthroplasty, hip, total, anterior approach Acetabular shell [id number] FDA Start: 01-31-2023 Arthroplasty, hip, total, anterior approach Orthopaedic bone screw, non-bioabsorbable, sterile ()[id number] FDA Start: 01-31-2023 Arthroplasty, hip, total, anterior approach Orthopaedic bone screw, non-bioabsorbable, sterile [id number] FDA Start: 01-31-2023 Arthroplasty, hip, total, anterior approach Ceramic femoral head prosthesis ()[id number] FDA Start: 01-31-2023 Arthroplasty, hip, total, anterior approach Coated hip femur prosthesis, modular ()[id number] FDA Start: 01-31-2023 Arthroplasty, hip, total, anterior approach Non-constrained polyethylene acetabular liner ()[id number] FDA Start: 01-31-2023 Cage Spnl W11xh8 xl14mm Lum Lord Intbdy Fus Triad Cc - [id number] Start: 11-18-2020 Graft Spnl W11xh 2hj59nd Corticocancellous Lord Triad - [id number] Start: 11-18-2020 Screw Spnl L7mm Dia2.6mm Lum Lat Mass Leverage Lfs [id number] Start: 11-18-2020 Plate Spnl L42mm Ant Cerv 2 Lev Translational [place] Acp [id number] Start: 11-18-2020 Screw Spnl L13mm Dia4mm Ant Cerv St Melanie Ang Compr [place] Acp [id number] Start: 11-18-2020 Screw Spnl L5mm Dia2.6mm Stubbs Leverage Lfs [id number] Start: 11-18-2020 Plate Spnl Cran Caud Stubbs 9.5mm M Leverage Lfs [id number] Start: 11-18-2020 Goals Date Patient Goal Desired Activity /State Clinical Notes 11-18-2020 to 04-20-2023 Note Date & Type Note Facility 04-20-2023 Evaluation note Encounter Date Diagnosis Assessment Notes Apr, S/P total left hip arthroplasty (ICD-10 - Z96.642) Apr, Aftercare following joint replacement surgery (ICD-10 - Z47.1) Apr, Presence of left artificial hip joint (ICD-10 - Z96.642) Apr, Other [facility] on 01/31/2023 Overall she is doing great. This sounds like she may have flared up some bursitis and some soft tissue soreness. I recommended that she continue her diclofenac 75 mg daily for another 3 weeks. Also recommended that she start Voltaren gel 2-3 times a day. If in 3 weeks time she is not seeing improvement then she can call our office and we can consider more invasive treatment options for her lateral based hip pain. If she is doing well and feels like this is improving then I will plan to see her at her 1 year postop. Discussed post-op dental prophylaxis. Shared decision made to continue prophylactic antibiotics indefinitely. Follow-up at 1 year post-op for repeat examination and repeat x-rays. Patient instructed to call with any questions or concerns. [facility] Other 11-16-2023 Evaluation note* Encounter Date Diagnosis Assessment Notes Treatment Notes Treatment Clinical Notes Feb, S/P total left hip arthroplasty (ICD-10 - Z96.642) Feb, Aftercare following joint replacement surgery (ICD-10 - Z47.1) Feb, Presence of left artificial hip joint (ICD-10 - Z96.642) Feb, Other Patient continu es to do very well after her total hip. Her skin is still healing at the apex of the incision. Recommended not submerging it for another 2 weeks. Still recommended local wound care. At this point I will see her in 2 weeks with x-rays of the left hip. [facility] Other 11-01-2023 Evaluation note* Encounter Date Diagnosis Assessment Notes Treatment Notes Treatment Clinical Notes Feb, S/P total left hip arthroplasty (ICD-10 - Z96.642) Feb, Aftercare following joint replacement surgery (ICD-10 - Z47.1) Feb, Presence of left artificial hip joint (ICD-10 - Z96.642) Feb, Other [facility] on 01/31/2023 Overall patient is doing very well but she had a reaction to the adhesives on the Aquacel and the Zipline dressing. Recommended finishing out her Medrol Dosepak and then discussed local wound care. Patient may continue activities as tolerated. They are weightbearing as tolerated to the operative extremity. Patient is progressing with home health & physical therapy. We made the shared decision to discontinue physical therapy. Patient instructed to continue weaning off narcotic pain medication. They can take yqvk-agl-alrxanh anti-inflammatories as needed for assistance with swelling and pain associated with the operative extremity. Patient to continue their aspirin DVT prophylaxis as previously instructed. This includes wearing their CAROLA hose on the operative extremity for another two weeks. Follow-up in 2 weeks for a wound check and if everything looks good at that point then 2 weeks for repeat examination and x-rays of the left hip. [facility] Other 10-26-2023 Evaluation note* Encounter Date Diagnosis Assessment Notes Treatment Notes Treatment Clinical Notes Jan, Aftercare following joint replacement surgery (ICD-10 - Z47.1) Jan, Presence of left artificial hip joint (ICD-10 - Z96.642) Jan, S/P total left hip arthroplasty (ICD-10 - Z96.642) Jan, Other [facility] 01/31/2023 The Aquacel was removed today and it clearly shows reaction to the adhesive. The proximal aspect of the Zipline was removed and Steri-Strips were applied. Some of the Zipline was tightened. At this point patient will call if there is any concerns. We will plan to keep it clean and dry. Local wound care was discussed. Patient can keep her appointment next week. We also prescribed her a Medrol Dosepak to help calm down this allergic reaction. [facility] Other 10-12-2023 Evaluation note* Encounter Date Diagnosis Assessment Notes Treatment Notes Treatment Clinical Notes Jan, Primary osteoarthritis of left hip (ICD-10 - M16.12) Jan, Age-related osteoporosis without current pathological fracture (ICD-10 - M81.0) Jan, Other halfway (current) drug therapy (ICD-10 - Z79.899) Jan, Other 1. Left JILLIAN Home Medications - DVT prophylaxis: Aspirin - NSAID: Celebrex - Disposition: Same-day discharge Joints Meeting Checklist - Pharmacy: [facility] to bed - Approach/Technique: anterior, [place] bed - Implants: Avenir Complete/G7; - Anesthesia: general vs spinal - Blocks: Fascia iliaca - Preop Antibiotics: Ancef - TXA: yes-systemic - Positioning/OR Bed: supine on [place] bed - Intraop X-ray: yes - Fraser: no - Tourniquet: no - Antibiotic powder: yes-2 grams of vanc - Antibiotic cement: no - Dressing: Zipline and Aquacel The patient has tried and failed all conservative treatment options to include: activity modification, physical therapy, oral anti-inflammatories , and intra-articular steroid injections. We will move forward with the definitive treatment option and schedule the patient for the above mentioned procedure. The risks involved with surgery and postoperative complications were discussed in relation to the patient's non-modifiable risk factors including but not limited to the following: Hypercholesterolemi a Depression Hypertension All questions were answered after discussing these increased risks. The patient voiced understanding of these increased risks and still wishes to proceed with surgery. The risks involved with surgery and postoperative complications were discussed in relation to the patient's modifiable risk factors including but not limited to the following: None identified at this time All questions were answered after discussing these increased risks. The patient voiced understanding of these increased risks and still wishes to proceed with surgery. The risks and benefits of the surgery were reviewed in depth with the patient, and all questions were answered. Informed consent was obtained. The risks and potential complications of the surgery include, but are not limited to: avascular necrosis, nonunion, nerve injury, blood vessel injury, excessive bleeding, blood transfusion, infection, persistent pain, loss of fixation, failure of the implant, deep vein thrombosis, pulmonary embolus, loss of limb, fracture, leg length discrepancy, and . Patient voiced understanding of these risks and has elected to proceed with the above surgery. OARRS report generated and reviewed. [facility] Other 10-06-2023 Evaluation note* Encounter Date Diagnosis Assessment Notes Treatment Notes Treatment Clinical Notes Jan, Other [facility] 1. H and P date: 01/27/2023 2. Diagnosis: Left hip primary osteoarthritis 3. Counseling: Patient received counseling at their history and physical. 4. Coordination of care: The patient was discussed at today's total joints meeting with anesthesia, OR staff, and implant reps in an effort to coordinate the patient's care during the perioperative period. The anesthesiologist was involved in discussions regarding the patient's pain management such as regional blocks, anesthesia plans the day of surgery such as general versus spinal, as well as a final review of lab work to ensure the patient could proceed with surgery safely. The web content manager was vital for surgery timing and scheduling purposes. The implant rep was also available for necessary discussions regarding preoperative templates that were created on preoperative x-rays to ensure the appropriate implants and sizes of implants would be available the day of surgery. The patient's discharge plan was also discussed and the final decision was confirmed. 5. Medication Changes: None 6. Lab Tests: The patient's screening tests including albumin levels, vitamin D levels, hemoglobin, hemoglobin A1c, cotinine serum level, and MRSA nasal cultures were all reviewed to ensure appropriate perioperative care can be performed. This included selection of perioperative antibiotics, surgical dressing, and any contact precautions that may need to be enacted. The patient's presurgical testing lab work was also reviewed. This included a CBC, BMP, UA, fructosamine, and a blood type and screen. This lab work was discussed with anesthesia during today's total joints meeting to ensure the patient could proceed with surgery safely. 7. Review of reports/records: The surgical clearance information provided by the patient's PCP and if deemed necessary, other specialists, was reviewed. Any recommendations made by these care providers were taken into consideration for the patient's perioperative and postoperative treatment plans. Prolonged services time spent: 32 minutes [facility] Other 08-31-2023 Evaluation note* Encounter Date Diagnosis Assessment Notes Treatment Notes Treatment Clinical Notes Nov, Sacroiliitis, not elsewhere classified (ICD-10 - M46.1) Nov, Osteoarthritis of left hip (ICD-10 - M16.12) Patients primary complaint today continues to be severe, progressing left hip and groin pain into the lateral thigh. Unfortunately, previous intra-articular hip joint injections did not provide the patient with the relief she was hoping for. Recent MRI results show evidence of cartilage thinning of the weightbearing portion of the hip with subarticular bone marrow edema in the femoral head and acetabulum. At this point I will refer the patient to orthopedics for further evaluation. In the meantime, given the severity of her symptoms, I will prescribe a short term supply of Tramadol 50 MG up to twice daily as needed for severe breakthrough pain. OARRS was processed and reviewed, no discrepencies. Risks and side effects of this medication was discussed in detail with the patient who voiced understanding. Anatomy discussed in detail with patient in regards to patients condition. Nov, Chronic pain (ICD-10 - G89.29) Nov, Other Above note writ ten by Nino Reese MA, Sports Cartoonist. Edited and approved by Dr. Sawyer Greer MD. [facility] Other 08-31-2023 Evaluation note* Encounter Date Diagnosis Assessment Notes Treatment Notes Treatment Clinical Notes Nov, Osteoarthritis of left hip (ICD-10 - M16.12) [facility] Other 05-09-2023 Evaluation note* Encounter Date Diagnosis Assessment Notes Treatment Notes Treatment Clinical Notes August, Trochanteric bursitis, left hip (ICD-10 - M70.62) August, Left hip pain (ICD-10 - M25.552) Patients primary complaint today is left hip/groin and thigh pain. She has failed previous conservative treatments and continues to experience progressing symptoms. I will order an MRI of her hip for further evaluation of her pain symptoms. Pending the results, we can consider a referral to orthopedics vs further treatment options. We will follow up with the patient once we obtain the results. Anatomy discussed in detail with patient in regard to patients condition. August, Sacroiliitis, not elsewhere classified (ICD-10 - M46.1) August, Chronic pain (ICD-10 - G89.29) August, Other Above note writ ten by Jcarlos Jovel LPN, Sports Cartoonist. Edited and approved by Dr. Sawyer Greer MD. [facility] Other 04-19-2023 Evaluation note* Encounter Date Diagnosis Assessment Notes Treatment Notes Treatment Clinical Notes Jul, Sacroiliitis, not elsewhere classified (ICD-10 - M46.1) Jul, Trochanteric bursitis, left hip (ICD-10 - M70.62) Jul, Left hip pain (ICD-10 - M25.552) We discussed treatment options for the patient's persistent left hip/groin pain. She shows notable pain consistent with the hip joint. She has failed multiple previous conservative treatment options. Given location of pain and exam findings, patient is a candidate for a left hip joint injection, which we will proceed with. Risks and benefits of procedure explained to patient; patient verbalizes understanding. In the meantime she will continue with Diclofenac Sodium 75 mg twice daily. Anatomy discussed in detail with patient in regard to patients condition. Jul, Chronic pain (ICD-10 - G89.29) Jul, Other Above note writ ten by Jcarlos Jovel LPN, Sports Cartoonist. Edited and approved by Dr. Sawyer Greer MD. [facility] Other 03-20-2023 Evaluation note* Encounter Date Diagnosis Assessment Notes Treatment Notes Treatment Clinical Notes Jun, Sacroiliitis, not elsewhere classified (ICD-10 - M46.1) We discussed treatment options for the patient's persistent low left lumbar/gluteal pain. She shows notable pain consistent with the sacroiliac joint. She has failed multiple previous conservative treatment options. Given location of pain and exam findings, patient is a candidate for a repeat left sacroiliac joint injection, which we will proceed with. Risks and benefits of procedure explained to patient; patient verbalizes understanding. Additionally we will start her on Diclofenac Sodium 75 mg twice daily. Risks and side effects of this medication was discussed in detail with the patient who voiced understanding. We discussed if symptoms persist we can consider facet injections. Anatomy of spine discussed in detail with patient in regard to patients condition. Jun, Trochanteric bursitis, left hip (ICD-10 - M70.62) Jun, Left hip pain (ICD-10 - M25.552) Patient is voicing some complaints of left hip pain today however this remains tolerable. We discussed proceeding with a left intra-articular hip joint injection should her symptoms progress. Jun, Chronic pain (ICD-10 - G89.29) Jun, Other Above note writ ten by Jcarlos Jovel LPN, Sports Cartoonist. Edited and approved by Dr. Sawyer Greer MD. [place] [facility] Other 11-08-2022 Evaluation note* Encounter Date Diagnosis Assessment Notes Treatment Notes Treatment Clinical Notes Feb, Sacroiliitis, not elsewhere classified (ICD-10 - M46.1) Patient voices minimal complaints of pain in the low back/ gluteal region at this time. She attributes this to recent left sacroiliac joint injections. We will continue to monitor and proceed with future treatment to the area as needed. She will continue Meloxicam. We will follow up with the patient in three months, sooner if needed. Anatomy of spine discussed in detail with patient in regard to patients condition. Overall, patient believes their pain is reasonably well controlled and she is in agreement with our treatment plan. Feb, Trochanteric bursitis, left hip (ICD-10 - M70.62) Patient denies any complaints of pain in the area at this time. She attributes this to a recent left trochanteric bursa injection. We will continue to monitor and proceed with future treatment to the area as needed. Overall, patient believes their pain is reasonably well controlled and she is in agreement with our treatment plan. Feb, Left hip pain (ICD-10 - M25.552) Patient is voicing some complaints of left hip pain today however this remains tolerable. We discussed proceeding with a left intra-articular hip joint injection should her symptoms progress. Feb, Chronic pain (ICD-10 - G89.29) Feb, Other Above note writ ten by Nino Reese MA, Sports Cartoonist. Edited and approved by Dr. Sawyer Greer MD. [facility] Other 10-17-2022 Evaluation note* Encounter Date Diagnosis Assessment Notes Treatment Notes Treatment Clinical Notes Jan, Other low back pain (ICD-10 - M54.59) Jan, Sacroiliitis, not elsewhere classified (ICD-10 - M46.1) We discussed treatment options for the patient's persistent low left sided lumbar/gluteal pain. She shows notable pain consistent with the sacroiliac joint. She was recently evaluated by [facility] who feels she would benefit from a sacroiliac joint injection. She has failed conservative treatment options, and continues with at home active stretching/exercis e and modicfications. Given location of pain and exam findings, patient is a candidate for left sacroiliac joint injection, which we will proceed with. Risks and benefits of procedure explained to patient; patient verbalizes understanding. Anatomy of spine discussed in detail with patient in regard to patients condition. Jan, Chronic pain (ICD-10 - G89.29) Jan, Trochanteric bursitis, left hip (ICD-10 - M70.62) We discussed treatment options for the patient's persistent left hip/gluteal pain. Patient shows notable tenderness upon exam over the left trochanteric bursa. Given location of pain and exam findings, patient is a candidate for left trochanteric bursa injection, however at this time we will hold off on scheduling this. Jan, Other Above note writ ten by Jcarlos Jovel LPN, Sports Cartoonist. Edited and approved by Dr. Sawyer Greer MD. Medical decision making shows a new problem to me with further workup planned or suggested with the potential for extensive treatment options that were considered with the most applicable given this patient's situation as noted above. Treatment options considered include a combination of physical therapy approaches, pharmacologic management, and interventional procedures. Those most applicable to the patient were discussed at this time. Risk of complications and/or morbidity and mortality is high given that acute and chronic pain poses a threat to life and bodily function if undertreated, poorly treated or with failure to maintain adequate treatment and timely followup. Given the serious and fluctuating nature of pain with extensive consideration for whenever pain changes, there always remains the possibility of prolonged functional impairment requiring constant patient reassessment and high-level medical decision making. The amount and complexity of data reviewed is high given that patient labs, radiology reports, and other test were obtained, reviewed and summarized as applicable from the physician portal and/or outside medical records. Pertinent positive and negative findings were considered in medical decision-making. [facility] Other 10-11-2022 Evaluation note* Encounter Date Diagnosis Assessment Notes Treatment Notes Treatment Clinical Notes Jan, Inflammation of left sacroiliac joint (ICD-10 - M46.1) Jan, Greater trochanteric bursitis of left hip (ICD-10 - M70.62) Jan, Arthropathy of left hip (ICD-10 - M16.12) I independently reviewed the MRI of the lumbar spine and the report. The patient has no canal encroachment by disc, no significant foraminal encroachment, no malalignment, and wide open nerve roots. Her pain is in the left sacroiliac joint which is palpable and inflammatory, and the left trochanteric region which is painful to palpation and also inflammatory. She also had a mildly positive Silvia sign and has history of left groin pain which is most likely hip related although mild and I would not be surprised if inflammatory because of gait. I will refer her to pain management Jan, History of fusion of cervical spine (ICD-10 - Z98.1) I independently reviewed the MRI of the cervical spine May 2021. The patient has a fusion and adequate canal above and below the fusion and adequate foramen. In fact I agree with the report that the findings in this MRI are improved over the previous. I see no evidence for further surgical intervention. The patient has persistent numbness of the middle ring and little finger and lateral forearm. Its not likely that this numbness will improve. The function in her hand appears relatively good overall. There are no further surgical options for this patient. There is no reason that this patient would not be able to perform normal work duties. [facility] Other 02-23-2022 NoteChief Complaint consultation for right inguinal hernia HPI Staff 50 year old female presents on consultation from Dr. Javier for right inguinal hernia. Reports she awoke roughly 5 weeks ago with bulge to right inguinal area. Reports significant pain at that time. Shegently massaged area which reduced bulge and improved pain. She is currently experiencing intermittent bulge and pain. Some nausea when pain is severe. Denies vomiting. Denies constipation. CT ABD/pelvis completed 05/09/21. History of Present Illness 50 yo female with h/o htn, hyperlipidemia, asthma, cervical radiculopathy; referred for right inguinal bulge; noticed 5 weeks ago, no unusual straining or lifting; noticed tender bulge in RLQ, was able to reduce it; has had intermittent bulging since then, no N/V; no bowel changes; recent ct scan with fat-containing right inguinal hernia; abdominal operations significant fo c- section, exploratorylaparotomy; ANTHONY with bso, all via Pfannenstiel incision; no asa or NSAID use; no tobacco use. Review of Systems PHQ Score Initial Depression Screen Score: 0 ROS - Provider Constitutional: no fever, no sweats, no weight loss. Eyes: no glasses, no blurred vision, no visual loss. ENMT: no dentures, no hoarseness, no swallowing difficulties, no hearing loss, no ear infection(s),no nose bleeds. Cardiovascular: normal blood pressure, no chest pain, regular heartbeat, no heart murmur. Respiratory: no shortness of breath, no cough, no asthma, no wheezing. Gastrointestinal: no nausea, no vomiting, no diarrhea, no constipation, no blood in stool, no change in bowel habits, no abdominal pain, no hepatitis. Genitourinary: no kidney stones, no urine infection, no dysuria. Musculoskeletal: no pain, no weakness. Skin: no changing moles, no rash, no skin lumps. Neurologic: no seizures, no epilepsy, no headache. Psychiatric: no emotional or psychiatric problem. Heme/Lymph: no bleeding problems, no anemia, no blood clots, no transfusions. Allergy/Immunologic: no swollen lymph nodes/glands, no IV drug abuse. Other: Additional ROS info: Except as noted in the above Review of Systems and in the History of Present Illness, all other systems have been reviewed and are negative or noncontributory. Physical Exam Vitals & Measurements T: 36.6 ?C(Temporal Artery) HR: 72(Peripheral) RR: 16 BP: 142/92 HT: 162.5 cm HT: 162.5 cm WT: 99.3 kg WT: 99.3 kg BMI: 37.6 HEENT: normal conjunctiva, sclera clear, no scleral icterus, EOM intact, PERRLA, oral mucosa moist without lesions. Neck: trachea midline, no mass, symmetric, no thyromegaly or nodules, no adenopathy Respiratory: lungs CTA, respirations non labored. Cardiovascular: regular rate and rhythm, no murmur, no pedal edema or varicosities. Gastrointestinal: obese, soft, non distended, no tenderness, no masses, well- healed Pfannenstiel incision; reducible right inguinal hernia, no skin changes, mild tenderness; diastasis recti no, no hepatosplenomegaly; normal bs Lymphatic: no cervical adenopathy, no inguinal adenopathy. Musculoskeletal: normal gait, digits and nails without infection, nodes, cyanosis, clubbing. Skin: no rashes, no lesions, no ulcers, no subcutaneous nodules, induration. Psychiatric/Neuro: oriented to time, place, person, judgement normal, affect appropriate for age, insight intact, no focal deficits. Tests: x-rays reviewed, review of old records completed, Discussed surgical options, risks, and possible complications with patient. Assessment/Plan 1. Reducible right inguinal hernia (K40.90: Unilateral inguinal hernia, without obstruction or gangrene, not specified as recurrent) plan right inguinal herniorrhaphy with mesh insertion, informed consent obtained. Ancef 2 gms IV prior to OR SCDs 2. BMI 37.0-37.9, adult (Z68.37: Body mass index [BMI] 37.0-37.9, adult) recommend diet and exercise Follow-up No qualifying data available Problem List/Past Medical History Ongoing Alopecia areata Anxiety Asthma BMI 37.0-37.9, adult Chronic migraine without aura Diabetes HTN (hypertension) Hyperlipidemia Radiculopathy of cervical spine Reducible right inguinal hernia Sleep apnea Historical No qualifying data Procedure/Surgical History Cervical discectomy (11/19/2020), Biopsy of breast, section, Colonoscopy, Exploratory laparotomy, ANTHONY BSO - Total abdominal hysterectomy and bilateral salpingo-oophorectomy. Medications irbesartan 150 mg Tab, 150 mg= 1 tab(s), Oral, Daily lansoprazole 30 mg Cap-DR, 30 mg= 1 cap(s), Oral, Daily simvastatin 20 mg Tab, 20 mg= 1 tab(s), Oral, Once a day (at bedtime) SUMAtriptan 100 mg Tab, 100 mg= 1 tab(s), Oral, Daily Allergies grepafloxacin (Skin reaction) Social History Alcohol Current, Wine, 1-2 times per week, 06/10/2021 Substance Abuse - Denies Substance Abuse, 06/10/2021 Tobacco Never (less than 100 in lifetime) Tobacco Use:. Never Smokeless Tobacco Use:., 06/10/2021 Family History ALS (more content not included)...[facility]: Result Comment: Electronically Signed By: KHANG BARTH, Jerry Pinto.sameer\Date and Time Signed: 06/10/21 16:23 [id number] Hospital Discharge instructions* Instructions* Nemo Calixto APRN - CYNDY - 11/19/2020 You may shower on Tuesday avoiding any scrubbing of surgical incisions. Leave the front incision open to air and do not apply any ointments to this incision as it can break down the skin glue Apply light dressing daily to the incision on the back of the neck and change daily and as needed for any saturation starting tomorrow 11/20/20 On 11/22/20 you may remove dressing from the incision on the back of the neck and leave open to air. Wear c collar as needed No driving until follow up with surgeon Take medications as directed Patient is to use ice bags 10 minutes on 10 minutes off as needed basis Patient may shower in 5 days postop on Tuesday Patient is to ambulate as much as possible Patient is to not drive until follow up [facility] Work Phone: [phone]) 831-671208-04-2021 History of Present illness Narrative* Krysten Villegas, OTR/Krysta - 11/19/2020 10:42 AM EDT [facility] EVALUATION - ACUTE NAME: Ana Palmer : 1970 (49 y.o.) CODE STATUS: Full Code Room: [place] [address] Date of Service: 11/19/2020 Patient Diagnosis(es): Cervical cord compression with myelopathy (HCC) [G95.20] No chief complaint on file. Patient Active Problem List Diagnosis Date Noted Cervical cord compression with myelopathy (HCC) 11/18/2020 Past Medical History: Diagnosis Date Arthritis Chronic back pain Chronic headaches Depression Sleep apnea History reviewed. No pertinent surgical history. Restrictions Restrictions/Precautions: Fall Risk Safety Devices: Safety Devices Safety Devices in place: Yes Type of devices: All fall risk precautions in place Subjective Pre Treatment Pain Screening Pain at present: 3 Scale Used: Numeric Score Intervention List: Patient able to continue with treatment, Patient declined any intervention Pain Reassessment: Pain Assessment Patient Currently in Pain: Yes Pain Assessment: 0-10 Pain Location: Neck, Shoulder Pain Orientation: Left, Right Pain Descriptors: Aching, Burning Prior Level of Function: Social/Functional History Lives With: Spouse (Daughter and 3 year old granddaughter) Type of Home: House Home Layout: Two level, Laundry in basement, Bed/Bath upstairs Home Access: Stairs to enter without rails Entrance Stairs - Number of Steps: 4, 10-12 steps upstairs with rail Bathroom Shower/Tub: Tub/Shower unit, Walk-in shower (Walk in shower in basement, 12 steps to basement with rail) Bathroom Equipment: 3-in-1 commode Receives Help From: Family ADL Assistance: Independent Homemaking Assistance: Independent Ambulation Assistance: Independent Transfer Assistance: Independent Active Painter Decorator: Yes Occupation: Unemployed 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 comfort Cognition Status: Cognition Overall Cognitive Status: WFL Perception Status: Perception Overall Perceptual Status: WFL Sensation Status: Sensation Overall Sensation Status: WFL (Pt states numbness in hands is improving) Vision and Hearing Status: Vision Vision: Impaired Vision Exceptions: Wears glasses at all times Hearing Hearing: Within functional limits ROM: LUE AROM (degrees) LUE AROM : WFL Left Hand AROM (degrees) Left Hand AROM: WFL RUE AROM (degrees) RUE AROM : WFL Right Hand AROM (degrees) Right Hand AROM: WFL Strength: LUE Strength Gross LUE Strength: Exceptions to WFL L Hand General: 3+/5 LUE Strength Comment: 3+/5 all planes RUE Strength Gross RUE Strength: Exceptions to WFL R Hand General: 3/5 RUE Strength Comment: 3/5 all planes; states this is something which has been on and off an issue Coordination, Tone, Quality of Movement: Tone RUE RUE Tone: Normotonic Tone LUE LUE Tone: Normotonic Coordination Movements Are Fluid And Coordinated: No Coordination and Movement description: Fine motor impairments, Decreased speed, Right UE, Decreasedaccuracy Quality of Movement Other Comment: Pt c/o intermittent numbness in R hand; this is longstanding Hand Dominance: Hand Dominance Hand Dominance: Right ADL Status: ADL Feeding: Independent Grooming: Setup UE Bathing: Setup LE Bathing: Minimal assistance UE Dressing: Setup LE Dressing: Moderate assistance Toileting: Contact guard assistance Additional Comments: Simulated ADLs as above. Pt slow moving and painful; difficulty with figure 4 and reaching feet d/t neck pain Toilet Transfers Toilet Transfer: Unable to assess Toilet Transfers Comments: Anticipate min A based on other mobility Educated pt. on dressing techniques to maximize independence. Educated on types of shirt to be easiest with c-collar and techniques for bathing to maximize ability to reach feet. Pt. demonstrates G understanding and teach back. Therapy hussein for assistance levels Independent = Pt. is able to perform task with no assistance but may require a device Stand by assistance = Pt. does not perform task at an independent level but does not need physical assistance, requires verbal cues Minimal, Moderate, Maximal Assistance = Pt. requires physical assistance (25%, 50%, 75% assist fromhelper) for task but is able to actively participate in task Dependent = Pt. requires total assistance with task and is not able to actively participate with task completion Functional Mobility: Functional Mobility Functional - Mobility Device: Rolling Walker Activity: To/from bathroom Assist Level: Stand by assistance Functional Mobility Comments: Verbal cues for technique Transfers Sit to stand: Contact guard assistance Stand to sit: Contact guard assistance Transfer Comments: Verbal cues for technique Bed Mobility Bed mobility Supine to Sit: Stand by assistance Sit to Supine: Unable to assess (Up to bedside chair to promote OOB activity) Comment: Verbal cues for log roll; good return of demo Seated and Standing Balance: Balance Sitting Balance: Supervision Standing Balance: Stand by assistance Functional Endurance: Activity Tolerance Activity Tolerance: Patient Tolerated treatment well D/C Recommendations: OT D/C RECOMMENDATIONS REQUIRES OT FOLLOW UP: Yes Equipment Recommendations: OT Equipment Recommendations Other: Continue to assess OT Education: OT Education OT Education: Plan of Care, OT Role Patient Education: Educated pt. on doffing/donning c-collar and UE dressing techniques Barriers to Learning: None OT Follow Up: OT D/C RECOMMENDATIONS REQUIRES OT FOLLOW UP: Yes Assessment/Discharge Disposition: Assessment: Pt is a 49 year old woman from home with family who presents to [facility] with the above deficits which impact her ability to perform ADLs and IADLs. Pt. limited d/t pain and fatigue this AM.Pt. continues to benefit from OT to maximize independence and safety with ADL tasks. Performance deficits / Impairments: Decreased functional mobility , Decreased ADL status, Decreasedstrength, Decreased balance, Decreased endurance, Decreased high-level IADLs, Decreased fine motor control, Decreased coordination Prognosis: Good Discharge Recommendations: Continue to assess pending progress Decision Making: Medium Complexity History: Pt's medical history is moderately complex Exam: Pt. has 8 performance deficits Assistance / Modification: Pt. requires min A Six Click Score How much help for putting on and taking off regular lower body clothing?: A Little How much help for Bathing?: A Little How much help for Toileting?: A Little How much help for putting on and taking off regular upper body clothing?: A Little How much help for taking care of personal grooming?: A Little How much help for eating meals?: None AM-[facility] Inpatient Daily Activity Raw Score: 19 AM-[facility] Inpatient ADL T-Scale Score : 40.22 ADL Inpatient CMS 0-100% Score: 42.8 Plan: Plan Times per week: 1-4x Plan weeks: Length of acute stay Current Treatment Recommendations: Strengthening, Balance Training, Functional Mobility Training, Endurance Training, Pain Management, Safety Education & Training, Patient/Caregiver Education & Training, Self-Care / ADL, Equipment Evaluation, Education, & procurement, Home Management Training, Cognitive/Perceptual Training Goals: Patient will: - Improve functional endurance to tolerate/complete 30 mins of ADL's - Be Mod I in UB ADLs - Be Mod I in LB ADLs - Be Mod I in ADL transfers without LOB - Be Mod I in toileting tasks - Improve B hand fine motor coordination to WFL in order to manage clothing fasteners/self-care containers in a timely manner - Improve B UE strength and endurance to 4-/5 in order to participate in self- care activities as projected. - Access appropriate D/C site with as few architectural barriers as possible. - Sequence self-care tasks with no verbal cues for safety Patient Goal: Patient goals : I want to get home and back to normal Discussed and agreed upon: Yes Comments: Therapy Time: OT Individual Minutes Time In: 901 Time Out: 927 Minutes: 26 ADL/IADL trainin minutes Eval: 16 minutes Electronically signed by: STEWART Kim/Krysta, OTR/L 11/19/2020, 10:42 AM * Archana Chadwick, PT - 11/19/2020 9:49 AM EDT Physical Therapy Med Surg Initial Assessment Facility/Department: [address] [facility]UR[facility] Room: [place] [address] NAME: Ana Palmer : 1970 (49 y.o.) CODE STATUS: Full Code Date of Service: 11/19/2020 Patient Diagnosis(es): Cervical cord compression with myelopathy (HCC) [G95.20] No chief complaint on file. Patient Active Problem List Diagnosis Date Noted Cervical cord compression with myelopathy (HCC) 11/18/2020 Past Medical History: Diagnosis Date Arthritis Chronic back pain Chronic headaches Depression Sleep apnea History reviewed. No pertinent surgical history. Chart Reviewed: Yes Patient assessed for rehabilitation services?: Yes Family / Caregiver Present: No General Comment Comments: Pt laying in bed, agreeable to PT eval Restrictions: Restrictions/Precautions: Fall Risk SUBJECTIVE: Subjective: Pt reports post op pain managabe at rest. Pain Pre Treatment Pain Screening Pain at present: 3 Scale Used: Numeric Score Intervention List: Patient able to continue with treatment;Patient declined any intervention Post Treatment Pain Screening: Pain Screening Patient Currently in Pain: No Pain Assessment Pain Assessment: 0-10 Pain Level: 4 Pain Type: Surgical pain Pain Location: Neck;Shoulder Pain Orientation: Right;Left Pain Descriptors: Aching;Burning Pain Frequency: Intermittent Clinical Progression: Gradually worsening Functional Pain Assessment: Prevents or interferes with all active and some passive activities Non-Pharmaceutical Pain Intervention(s): Ambulation/Increased Activity;Repositioned Prior Level of Function: Social/Functional History Lives With: Spouse (Daughter and 3 year old granddaughter) Type of Home: House Home Layout: Two level, Laundry in basement, Bed/Bath upstairs Home Access: Stairs to enter without rails Entrance Stairs - Number of Steps: 4, 10-12 steps upstairs with rail Bathroom Shower/Tub: Tub/Shower unit, Walk-in shower (Walk in shower in basement, 12 steps to basement with rail) Bathroom Equipment: 3-in-1 commode Receives Help From: Family ADL Assistance: Independent Homemaking Assistance: Independent Ambulation Assistance: Independent Transfer Assistance: Independent Active Painter Decorator: Yes Occupation: Unemployed 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 OBJECTIVE: Vision: Impaired Vision Exceptions: Wears glasses at all times Hearing: Within functional limits Cognition: Overall Orientation Status: Within Normal Limits Follows Commands: Within Functional Limits Observation/Palpation Posture: Good Observation: pleasant, cooperative, no acute distress noted, hard cervical collar ROM: RLE AROM: WFL LLE AROM : WFL RUE General AROM: deferred to OT LUE General AROM: deferred to OT Spine Cervical: impaired, not formally tested s/p cervical diskectomy, decompression, fusion Strength: Strength RLE Comment: Functionally >/=3+/5 Strength LLE Comment: Functionally >/=3+/5 Strength RUE Comment: deferred assessment to OT Strength LUE Comment: deferred assessment to OT Neuro: Balance Posture: Fair Sitting - Static: Good Sitting - Dynamic: Good Standing - Static: Fair;+ Standing - Dynamic: Fair;+ Tone RLE RLE Tone: Normotonic Tone LLE LLE Tone: Normotonic Motor Control Gross Motor?: WFL Sensation Overall Sensation Status: WFL (Pt states numbness in hands is improving) Bed mobility Supine to Sit: Stand by assistance Sit to Supine: Unable to assess (pt up to bedside chair to promote OOB activity) Comment: VC for log roll performance with good return demo Transfers Sit to Stand: Stand by assistance Stand to sit: Stand by assistance Comment: VC for safe hand placement with 2ww Ambulation Ambulation?: Yes Ambulation 1 Surface: level tile Device: Rolling Walker Assistance: Supervision Gait Deviations: Slow [place]ma Distance: 60ft Comments: SBA progressing to supervision. Pt instructed in safe 2ww use with good return demo. VC to normalize gait and for scanning the environment. Increased time for performance Stairs/Curb Stairs?: Yes (Pt ed in safe guarding technique for entry into home. Pt ed in safe stair sequencing to second floor with R handrail. Pt states understanding and denies concerns) Activity Tolerance Activity Tolerance: Patient Tolerated treatment well Exercises Comments: Pt ed in progressive ambulation program PT Education PT Education: Goals;PT Role;Plan of Care;General Safety;Functional Mobility Training;Gait Training;Home Exercise Program;Transfer Training;Precautions Patient Education: donning doffing cervical collar, how to adjust chin rest, to wear collar PRN forcomfort ASSESSMENT: Body structures, Functions, Activity limitations: Decreased functional mobility ;Decreased balance;Decreased strength;Decreased ROM;Increased pain Decision Making: Medium Complexity History: med Exam: high Clinical Presentation: med Prognosis: Good Patient Education: donning doffing cervical collar, how to adjust chin rest, to wear collar PRN forcomfort Barriers to Learning: none DISCHARGE RECOMMENDATIONS: Discharge Recommendations: Continue to assess pending progress Assessment: Pt demonstrates the above deficits and decline in functional mobility s/p cervical diskectomy, decompression and fusion. Pt demonstrates mobility with 2ww at supervision level. Pt has support of spouse at home as well. 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 Device may be needed. Stand by assistance = pt requires verbal cues or instructions from another person, close to but nottouching, to perform the activity Minimal assistance= pt performs 75% or more of the activity; assistance is required to complete theactivity Moderate assistance= pt performs 50% of the activity; assistance is required to complete the activity Maximal assistance = pt performs 25% of the activity; assistance is required to complete the activity Dependent = pt requires total physical assistance to accomplish the task documented in this encounterSalem [facility] CenterConnect[facility] Phone: 1(197) 163-133408-03-2021 NoteIntraprocedural fluoroscopic support has been provided. Please refer to the procedure report.[facility] Phone: 1(420) 442-871508-03-2021 NoteEXAMINATION: FLUORO FOR SURGICAL PROCEDURES CLINICAL HISTORY: R52 Pain ICD10 COMPARISONS: None available. FINDINGS: Fluoroscopic assistance was provided during ACDF, C5-6 and C6-7 The total radiationtime is 31.9 seconds, radiation dose is 3.62mGy.[facility] Phone: [phone]) 122-463208-03-2021 NoteEXAMINATION: FLUORO FOR SURGICAL PROCEDURES CLINICAL HISTORY: R52 Pain ICD10 COMPARISONS: None available. FINDINGS: Fluoroscopic assistance was provided during ACDF, C5-6 and C6-7 The total radiation time is 31.9 seconds, radiation dose is 3.62mGy. IMPRESSION: Intraprocedural fluoroscopic support has been provided. Please refer to the procedure report. Interpreted by: Leandro Spaulding MD Signed by: Leandro Spaulding MD 11/18/20 [facility] note Future Appointments Appointment Date:07/24/2021 01:20:00 PM Scheduled Provider:Jerry QUIÑONEZ MD Location:[facility] Appointment Type: Post Op 15 General Surgery [place] Evaluation note* Diagnosis Cervical spondylosis with myelopathy Cervical stenosis of spine Spinal stenosis in cervical region Cervical radiculopathy Brachial neuritis or radiculitis nos documented in this encounter [facility] Phone: [email or web address] note* Diagnosis Post-op pain- Primary Other acute postoperative pain Pain Generalized pain Muscle spasm Spasm of muscle Cervical cord compression with myelopathy (HCC) Unspecified disease of spinal cord documented in this encounter [facility] Phone: evalixgunh note* Diagnosis Pain Generalized pain documented in this encounter [facility] Phone: evallekzne noteNo InformationNort [facility] Other Evaluation noteNo assessment information available [facility] Work Phone: [facility] general Narrative - Reported* Type Description Date Medical History Arthritis Medical History high cholesterol Medical History migraine headache Medical History chronic depression Medical History anxiety Surgical History C section Surgical History hernia repair Surgical History hysterectomy Surgical History neck biopsy Hospitalization History see surgical hx [facility] general Narrative - Reported* Type Description Date Medical History Arthritis Medical History high cholesterol Medical History migraine headache Medical History chronic depression Medical History anxiety Surgical History C section Surgical History hernia repair Surgical History hysterectomy Surgical History neck biopsy Surgical History LTHA 01/31/2023 Hospitalization History see surgical hx [facility] Other Hospital course Narrative No data available for this section General Surgery [facility] Discharge instructions* Attachments The following attachments cannot be sent through Care Everywhere. * Sedation: General Info (Korean) documented in this encounterSalem [facility] CenterConnect[facility]Sell Phone: Hospital Discharge instructions No data available for this section General Surgery [facility] Discharge instructions Additional Instructions Joint Replacement Discharge Instructions Your safety during your recovery process is important to us. Please seek immediate emergency care if you have sudden chest pain or shortness of breath. Additionally, please call our office at [phone] should any of the following occur: wound bleeding or an increase in bleeding, increased swelling, redness around the incision, fever over 101 F, excessive vomiting, nosebleeds, or bloody stool. Discharge Medications (scheduled) indicated with an X: Senokot-S 8.6-50mg tablet. Take 2 tablets by mouth daily for 30 days or as long as you are taking a narcotic pain medication (tramadol, oxycodone, or morphine). Begin the day of surgery. Miralax 17g packet. Drink 1 packet mixed with 8 ounces of water daily for 7 days. Begin the morning after surgery. Begin your home anticoagulation medication, the morning after surgery. Take as prescribed like you were before surgery. Ecotrin (coated aspirin) 81mg tablet by mouth twice daily for 35 days. Begin the morning after surgery. Protonix (pantoprazole) 20mg tablet by mouth daily for 35 days. Begin the morning after surgery. Xarelto (rivaroxaban) 10mg table by mouth daily for 35 days. Begin the morning after surgery. Celebrex (celecoxib) 200mg tablet by mouth twice daily for 30 days. Take with food. Begin the morning after surgery. Duricef (cefadroxil) 500mg tablet by mouth twice daily for 7 days. Take with food. Begin the morning after surgery. Bactrim-DS (sulfamethoxazole & trimethoprim) 800mg-160mg tablet by mouth twice daily for 7 days. Take with food. Begin the morning after surgery. Cleocin (clindamycin) 300mg tablet by mouth 3 times (every 8 hours) a day for 7 days. Take with food. Begin the morning after surgery. Tylenol (acetaminophen) 500mg tablet. Take 2 tablets 3 times (every 8 hours) a day for 30 days. Begin the night of surgery if necessary. Prednisone 10mg tablet. Take 1 tablet daily for 10 days. Begin the morning after surgery. *If you have a patch behind your ear remove it the morning after surgery, discard, and thoroughly wash your hands. Discharge Medications (as needed) indicated with an X: Zofran (Ondansetron) 8mg tablet by mouth 3 times (every 8 hours) a day as needed for nausea. Begin the night of surgery if necessary. Tramadol (Ultram) 50mg tablet. Take 1 tablet by mouth every 6 hours as needed for pain. Do not take at the same time as oxycodone, MS Contin (morphine extended release), or Dilaudid (hydromorphone). Take with food. Begin the night of surgery. Take around the clock for 24 hours after surgery and then utilize if necessary. Oxycodone 5mg tablet. Take 1 tablet by mouth every 4 hours as needed for pain. If pain unrelenting 30 minutes after taking 1 tablet, then take another 1 tablet. Do not take at the same time as MS Contin (morphine extended release), Dilaudid (hydromorphone), or Tramadol (Ultram). Take with food. Begin the night of surgery. Take around the clock for 24 hours after surgery and then utilize if necessary. MS Contin (morphine extended release) 15mg tablet. Take 1 tablet by mouth every 12 hours as needed for BREAKTHROUGH pain only. If pain unrelenting 30 minutes after you have taken the second oxycodone 5mg tablet, then take 1 MS Contin tablet. Do not take at the same time as oxycodone or Tramadol (Ultram); this is a time-released medication and can only be taken once every 12 hours. Resume oxycodone at next scheduled time (4 hours after the MS Contin tablet). Begin the night of surgery if necessary. Dilaudid (hydromorphone) 2mg tablet. Take 1 tablet by mouth every 8 hours as needed for BREAKTHROUGH pain only. If pain unrelenting 30 minutes after oxycodone, then take 1 Dilaudid tablet. Do not take at the same time as oxycodone or Tramadol (Ultram). Resume oxycodone at next scheduled time (4 hours after the Dilaudid tablet). Begin the night of surgery if necessary. Discharge Instructions: BE SURE YOU HAVE READ THE BOOKLET YOU RECEIVED IN THE OFFICE. Home Health: Home health is a valuable partner in the joint replacement process; they will be your first step to your road of recovery. A therapist will see you the day after your surgery; they will be at your home before noon. They will see you the first three days after surgery and continue working with you until I see you in the office for your 2-week post-op appointment. Follow their instructions. Exercises are to be done several times a day, including the days the therapist does not come to your house! Wound Care: Your surgical incision may be covered with a few different dressings. Your home health physical therapist will remove the gauze dressing the first day after surgery, but they will leave one of the following in place until you see me in the office. Zipline This is a no contact dressing that will stay in place until you are seen in the office for your 2-week post-op appointment. Do not place any ointments, creams, or lotions on your wound. Avoid getting outside on hot days; excessive sweating can increase the risk of wound infection. If there is drainage, place a gauze dressing over the wound, secure with paper tape, and call your therapist. A small amount of drainage is expected. When you do bathe, allow soapy water to run over the dressing site, but do not scrub the incision or the dressing. Pat the dressing site dry with a towel after you shower. DO NOT take a bath, enter a pool, stringer/pond,or ocean until we discuss this at your post-op appointments. Aquacel This is a silver-impregnated dressing with antibiotic properties that will stay in place until you are seen in the office for your 2-week post-op appointment. Do not place any ointments, creams, or lotions around your wound or on the dressing. Avoid getting outside on hot days; excessive sweating can increase the risk of wound infection. If there is drainage, place a gauze dressing over the wound, secure with paper tape, and call your therapist. A small amount of drainage is expected. When you do bathe, allow soapy water to run over the dressing site, but do not scrub the incision or the dressing. Pat the dressing site dry with a towel after you shower. DO NOT take a bath, enter a pool, stringer pond, or ocean until we discuss this at your post-op appointments. Prevena This is a negative pressure wound therapy device with a collection container for any drainage. If this becomes completely full, call your therapist to discuss changing the collection container. This device also has a 14-day battery. Your home health physical therapist will remove the dressing 14 days after your surgery; it will be removed prior to your initial follow up appointment. Do not place any ointments, creams, or lotions around your wound or on the dressing. Avoid getting outside on hot days; excessive sweating can increase the risk of wound infection. When you do bathe, allow soapy water to run over the dressing site, but do not scrub the device or the surrounding skin. DO NOT get the device wet! Pat the dressing site dry with a towel after you shower. DO NOT take a bath, enter a pool, stringer/pond, or ocean until we discuss this at your post-op appointments. What to expect: SWELLING: Ice frequently, a minimum of 4 times a day for 20 minutes at a time for the first 2-3 weeks after surgery, especially after doing your exercises. While icing, elevate your foot above the level of your heart with several pillows under your ankle. DO NOT put pillows under your knee. (KNEE REPLACEMENT ONLY) Avoid prolonged periods of sitting over the first 7 to 10 days after surgery. We recommend that you not sit for more than 45 to 60 minutes at a time. You should get up and move around or lie down and elevate your leg. BRUISING: You will have bruising to some degree; possibly the thigh, calf, ankle, foot, and in some cases the genitalia. Do not be alarmed. The bruising will eventually go away on its own as the body reabsorbs the blood. BLISTERS: Some patients may develop blisters around the knee/hip and/or the incision. Although they can be alarming in appearance, they pose no significant risk to your joint replacement. Leave the blisters alone and allow them to heal on their own. NUMBNESS: Usually normal around the incision. For knee replacements, the outside of the knee may be involved as well. The area of numbness may shrink over time or it could last forever. For hip replacements, you may notice numbness on the outside of the thigh extending down the outside of the knee. The area of numbness may shrink over time or it could last forever. CAROLA hose (stockinette): Wear them for 4 weeks on the operative side and 2 weeks on the nonoperative side. Try to wear these as 24/ as possible to help decrease swelling. Weight Bearing, Walkers, and Canes: Do not remove your knee immobilizer. Do not walk without this until your therapist has removed it either on the first day after surgery or the second day after surgery. Do not attempt to walk without your walker and your patient care associate until the therapist checks you the following day after surgery and gives you further instruction. Typically, you will start out on a walker, then progress to a cane, and eventually walk without any device. Some of our patients do this within 2 weeks of surgery, while others can take 6 weeks. Pain Medications: You may experience significant pain. Our goal is to make your pain manageable (not absent, since this is usually not realistic) and to allow you to progress with your therapy for your hip or knee. Take your pain medication scheduled for the first 24 hours, then take it as needed. Always take your pain medication with food to decrease nausea and vomiting. Be sure to take stool softeners and/or laxatives as directed. You may take gemo-ufx-ulbmppt Benadryl if itching occurs without a rash or hives. Icing and elevation will help relieve pain as well, do not underestimate the power of ice and elevation. We do recommend that you stop taking narcotic pain medications by 4-6 weeks after surgery and if necessary, continue to use anti-inflammatory medications such as Mobic (meloxicam), Celebrex (celecoxib), or an tsoo-ujg-nkwxcwy medication (Aleve, Motrin, Ibuprofen, etc). Driving an automobile: You must be off all narcotic pain medications. If your right leg is involved, that is your braking leg. Your physical therapist needs to help you determine that you can actively and firmly hit the brake and sustain it as this could be a life or situation for you or someone else. You will not be cleared to drive by me or anyone else. It is up to you to know when you feel safe to drive. We do recommend utilizing an empty parking lot to practice and ensure you are able to slam on the brakes if necessary during an emergency. Low Grade Fever (less than 101 F): Low-grade fevers can be treated, but make sure you do not exceed the daily limit of Tylenol. The daily limit on Tylenol (acetaminophen) is 3000 mg in a 24-hour period. If you have procedures done after your joint replacement: Dental procedures (including routine cleaning), prostate surgery, colonoscopy, and other invasive procedures could increase your risk for a total joint infection. During a postoperative visit, be sure to discuss the use of prophylactic antibiotic therapy prior to and sometimes after these invasive procedures. The decision to utilize antibiotics before and/or after these invasive procedures is a shared decision process between you and myself. Constipation: If you develop constipation in spite of taking stool softeners and/or laxatives, follow the protocol below: Day 2 of constipation if no results, use a Dulcolax suppository Day 3 of constipation if no results, use a fleet s enema. If no results by the afternoon, notify our office. Bladder Habits: If you have difficulty urinating or are unable to urinate within 12 hours after arriving home following your surgery, please notify our office immediately. Expectations for Pain Relief after Joint Replacement: Patients predictably improve for up to a year after a hip or knee replacement. It is normal for you to still have some pain in your hip or knee for as much as 3 to 9 months after surgery. The pain relief will come, but you should not expect great relief of pain in less than this time. High demand activities (such as going up and down stairs) frequently take 3 to 9 months before patients feel comfortable doing them. It is permissible to go up and down stairs whenever you can safely navigate them, but it will take much longer to do them normally and with great confidence. Questions or Problems: If you have any questions, problems, or confusion about your recovery after your hip or knee replacement, please feel free to call our office at [phone]. You are a priority of ours and we will not be upset with you if you call. We would much rather you call to confirm aspects of your recovery process as opposed to possibly hindering your recovery with inappropriate care. We are committed to providing you with the best care possible. Edison Veronica II, MD Updated 07/02/2022[facility] Work Phone: Reason for Referral Status Reason Specialty Diagnoses / Procedures Referre d By Contact Referred To Contact Closed Radiology Diagnoses Cervical spondylosis with myelopathy Cervical stenosis of spine Cervical radiculopathy Procedures MRI CERVICAL SPINE WO CONTRAST Mejia Griffin MD [address] [place] [address] Status Reason Specialty Diagnoses / Procedures Referre d By Contact Referred To Contact Closed Radiology Diagnoses Pain Procedures Fluoro For Surgical Procedures Mejia Griffin MD [address] [place] [address] Reason *Waiting for appt Evaluate and Treat Sacroiliac and Trochanteric Bursitis L Hip Diagnosis 1 Inflammation of left sacroiliac joint (M46.1) Diagnosis 2 Greater trochanteric bursitis of left hip (M70.62) Referral Organization [facility] Referring Provider First Name Santiago Referring Provider Last Name Jerome Referring Provider Specialty Neurologica l Surgery Referred Organization [facility] [place] Referred Provider Sawyer Greer Referred Address [address] [place],[address] Referred Provider Specialty Pain Medicin e Referral Priority Routine General Notes Nisa Zelaya 022 10:44:35 AM >Received today and sent P2P Reason severe left hip/ helen in/ thigh pain Diagnosis 1 Osteoarthritis of le ft hip (M16.12) Referral Organization [facility] [place] Referring Provider First Name Sawyer Referring Provider Last Name Zoey Referring Provider Specialty Pain Medici ne Referred Organization [facility] Referred Provider Edison Veronica II Referred Address [address] [place],[address] Referred Provider Specialty Orthopedic S urgery Referral Priority Routine Summary Purpose Family History Relationship Condition Age at Onset Recorded Date/T maddison father Motor neuron disease Unknown Hypertension Unknown Hyperlipidemia Unknown Advance Directives Latest Code Status on File Code Status Date Activated Date Inactivated Comments Full Code 11/18/2020 5:48 PM Latest Code Status on File Code Status Date Activated Date Inactivated Comments Full Code 11/18/2020 5:48 PM 11/19/2020 6:17 PM Advance Directive Response Recorded Date/ Time Advance Directives No July 18 3:27pm Advance Directive Response Recorded Date/ Time Advance Directives No July 18 2:27pm Chief Complaint and Reason for Visit Chief Complaint M16.12 M81.0 Z79.899 Chief Complaint m25.552 M16.12 M81.0 Z79.899 Hip pain Chief Complaint m25.552 M16.12 M81.0 Z79.899 Hip pain LTH pre op Chief Complaint m25.552 M16.12 M81.0 Z79.899 Hip pain LTH pre op Hip pain Chief Complaint LTH pre op Hip pain Z47.1 Z96.642 Additional Source Comments Reason for Visit (unrecogniz ed section and content) 6 WEEKS Status Reason Specialty Diagnoses / Procedures Referre d By Contact Referred To Contact Closed Radiology Diagnoses Cervical spondylosis with myelopathy Cervical stenosis of spine Cervical radiculopathy Procedures MRI CERVICAL SPINE WO CONTRAST Mejia Griffin MD [address] [place] [address] Status Reason Specialty Diagnoses / Procedures Re ferred By Contact Referred To Contact Diagnoses Cervical stenosis (uterine cervix) Cervical radiculopathy Spondylosis Cord compression (HCC) STENOSIS, RADICULOPATHY, SPONDYLOSIS, CORD COMPRESSION Procedures IN SPINAL FUSION,ANT,EA ADNL LEVEL IN LUMB SP FUSN,POST INTERBDY,EA ADDNL IN ARTHRODESIS ANT INTERBODY INC DISCECTOMY, CERVICAL BELOW C2 IN C-LAMINOPLASTY W/GRAFT/PLATE, 2 OR MORE ANTERIOR INSTRUMENTATION 2-3 VERTEBRAL SEGMENTS IN ALLOGRAFT FOR SPINE SURGERY ONLY STRUCTURAL IN ARTHRODESIS ANT INTERBODY INC DISCECTOMY CERVICAL BELOW C2 EA ADDL A.C.D.F (ANTERIOR CERVICAL DISKECTOMY FUSION) C5-6 C6-7 WITH POSTERIOR DECOMPRESSION LAMINOPLASTY SPANNING FROM C3-4-5-6/ 2 HRS/ 1 C-ARM. NUVASIVE/ Andry.BaronP, PAT AT [facility] Mejia Griffin MD [address] [place] [address] [facility] INFORMATION SOURCE (unrecogn ized section and content) DATE CREATED AUTHOR 11/09/2020 [facility] DATE CREATED AUTHOR AUTHOR'S ORGANIZ ATION 11/22/2020 [facility] DATE CREATED AUTHOR AUTHOR'S ORGANIZ ATION 08/16/2021 [facility] DATE CREATED AUTHOR AUTHOR'S ORGANIZ ATION 09/24/2022 [facility] DATE CREATED AUTHOR AUTHOR'S ORGANIZ ATION 04/24/2023 [facility] Ordered Prescriptions (unrec ognized section and content) Prescription Sig Dispensed Refills Start Date End Da te sennosides-docusate sodium (SENOKOT-S) 8.6-50 MG tablet Take 1 tablet by mouth 2 times daily for 10 days 20 tablet 0 11/19/2020 11/29/2020 cephALEXin (KEFLEX) 500 MG capsule Take 1 capsule by mouth every 8 hours for 20 doses 20 capsule 0 11/19/2020 11/26/2020 diazePAM (VALIUM) 5 MG tabletIndications:Muscle spasm Take 1 tablet by mouth every 6 hours as needed (Muscle spasms) for up to 5 days. 20 tablet 0 11/19/2020 11/24/2020 oxyCODONE-acetaminophen (PERCOCET) 7.5-325 MG per tabletIndications:Post-o p pain Take 1 tablet by mouth every 4 hours as needed for Pain for up to 41 days. 28 tablet 0 11/19/2020 12/30/2020 Scheduled Active and Recently Administ ered Medications (unrecognized section and content) Medication Order 11/17/2020 11/18/2020 11/19/2020 atorvastatin (LIPITOR) tablet 10 mg 10 mg, Oral, NIGHTLY, First dose on Tue11/18/20 at 2100, Substituted for Simvastatin (ZOCOR). 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., 1 dose, On Tue11/18/20 at 0900, Pre-op (day of surgery) 1044 (Given - Provider: KATYA Dash CRNA)1415 (Given - Provider: KATYA Dash CRNA) ceFAZolin (ANCEF) 2000 mg in dextrose 5 % 100 mL IVPB 2,000 mg, Intravenous, EVERY 8 HOURS, 3 doses, First dose on Tue11/18/20 at 1815, Last dose on Tue11/19/20 at 1200, Post-op 1932 (Not Given - Provider: Ekaterina Stone LPN - Reason: Other) 0407 (New Bag - Provider: Ekaterina Stone LPN)0437 (Stopped - Provider: Ekaterina Stone LPN)1307 (New Bag - Provider: Ro Cardona RN)1457 (Stopped - Provider: Ro Cardona RN) cephALEXin (KEFLEX) capsule 500 mg 500 mg, Oral, EVERY 8 HOURS SCHEDULED (3 times per day), First dose on Tue11/19/20 at 0600, For 20 doses 0642 (Given - Provid er: Ekaterina Stone LPN)1307 (Given - Provider: Ro Cardona RN)2200 (Due) losartan (COZAAR) tablet 25 mg 25 mg, Oral, DAILY, First dose on Tue11/18/20 at 1815, Substituted for Irbesartan (AVAPRO). 1800 (Given - Provider: Wolf Coppola RN) 0829 (Given - Provider: Ro Cardona RN) polyethylene glycol (GLYCOLAX) packet 17 g 17 g, Oral, DAILY, First dose on Tue11/18/20 at 1815, Post-op 1800 (Given - Provider: Wolf Coppola RN) 0829 (Given - Provider: Ro Cardona RN) sennosides-docusate sodium (SENOKOT-S) 8.6-50 MG tablet 1 tablet 1 tablet, Oral, 2 TIMES DAILY, First dose on Tue11/18/20 at 2100, Post-op 2129 (Given - Provider: Ekaterina Stone LPN) 0829 (Given - Provider: Ro Cardona, DEV)2100 (Due) sodium chloride flush 0.9 % injection 5-40 mL 5-40 mL, Intravenous, EVERY 12 HOURS SCHEDULED (2 times per day), First dose on Tue11/18/20 at 2100, For Line Patency: Peripheral IV = 5 mL; Midline or Central Line = 10 mL/lumen. If following IV push medication, administer flush at same rate as the IV push. Flush volume is determined by type of infusion therapy being given. For non-viscous solutions use: Peripheral IV = 5 mL Midline or Central Line = 10 mL/lumen For viscous solutions (i.e. blood components, parenteral nutrition, contrast media, or after obtaining blood sample) use: Peripheral IV = 10 mL Midline or Central Line = 20 mL/lumen, Post-op 2100 (Not Given - Provider: Ekaterina Stone LPN - Reason: IV Fluid Infusing) 1048 (Not Given - Provider: Ro Cardona RN - Reason: IV Fluid Infusing)2100 (Due) Continuous Medication Order 11/17/2020 11/18/2020 11/19/2020 dextrose 5 % and 0.45 % sodium chloride infusion Intravenous, at 100 mL/hr, CONTINUOUS, Starting on Tue11/18/20 at 1815, Post-op 1759 (New Bag - Provider: Wolf Coppola RN) 0407 (New Bag - Provider: Ekaterina Stone LPN) lactated ringers infusion (CANCELED) Intravenous, at 50 mL/hr, CONTINUOUS, Starting on Tue11/18/20 at 0900, Pre-op (day of surgery) 0944 (New Bag - Provider: Gabriela Evangelista RN)1028 (Paused - Provider: Mejia Griffin MD - Comment: Switch to gravity)1029 (New Bag - Provider: Mejia Griffin MD)1113 (Canceled Entry - Provider: KATYA Dash CRNA - Comment: Switch to gravity)1114 (Canceled Entry - Provider: Joe Annalee, PLANT TAXONOMIST - SOCIAL STAFF WORKER)1447 (Stopped - Provider: Joe Mantilla APRN - SOCIAL STAFF WORKER)1544 (New Bag - Provider: Juliane Alonso, DEV) PRN Medication Order 11/17/2020 11/18/2020 11/19/2020 0.9 % sodium chloride infusion 25 mL, Intravenous, at 100 mL/hr, PRN, If patient receiving piggyback infusions without ordered maintenance IV fluids or with frequent/long duration piggyback infusions, Starting on Tue11/18/20 at 1747, Administer at the same rate as the piggyback being infused., Post-op diazePAM (VALIUM) tablet 5 mg 5 mg, Oral, EVERY 6 HOURS PRN, Anxiety, Muscle spasms, Starting on Tue11/18/20 at 1633, Post-op 1759 (Given - Provider: Wolf Coppola RN) fentaNYL (SUBLIMAZE) injection 50 mcg (CANCELED) 50 mcg, Intravenous, EVERY 10 MIN PRN, Pain Moderate (4-6), Starting on Tue11/18/20 at 0810, For 4 doses, Phase I - Initial therapy for moderate pain., PACU only 1452 (Given - Provider: Fallon Garcia RN)1513 (Given - Provider: Fallon Garcia RN) gelatin adsorbable (GELFOAM) sponge (CANCELED) PRN, Starting on Tue11/18/20 at 1117, Intra-op 1117 (Given - Provider: Mejia Griffin MD - Comment: prn) HYDROmorphone (DILAUDID) injection 0.5 mg (CANCELED) 0.5 mg, Intravenous, EVERY 10 MIN PRN, Pain Severe (7-10), Starting on Tue11/18/20 at 0810, For 4 doses, Phase I - Initial therapy for severe pain., PACU only 1543 (Given - Provider: Juliane Alonso, DEV)1636 (Given - Provider: Juliane Alonso RN) HYDROmorphone (DILAUDID) injection 0.5 mg 0.5 mg, Intravenous, EVERY 4 HOURS PRN, Pain Moderate (4-6), Starting on Tue11/18/20 at 1747, If oral and IV narcotics ordered, use oral first and only use IV if oral is ineffective or cannot take oral. Do Not give oral and IV within 1 hour of each other unless specifically ordered. 2144 (Given - Provider: Natalee Salcido RN) 0423 (Given - Provider: Natalee Salcido RN) ondansetron (ZOFRAN) injection 4 mg(Linked Group 1) 4 mg, Intravenous, EVERY 6 HOURS PRN, Nausea, Vomiting, Starting on Tue11/18/20 at 1747, Administer if oral route cannot be used., Post-op oxyCODONE-acetaminophen (PERCOCET) 7.5-325 MG per tablet 1 tablet 1 tablet, Oral, EVERY 6 HOURS PRN, Pain Moderate (4-6), Starting on Tue11/18/20 at 1633, Maximum dose of acetaminophen is 4000 mg from all sources in 24 hours. 1800 (Given - Provider: Wolf Coppola RN) 0151 (Given - Provider: Ekaterina Stone LPN)0829 (Given - Provider: Ro Cardona, DEV)1459 (Given - Provider: Ro Cardona, DEV) promethazine (PHENERGAN) tablet 12.5 mg(Linked Group 1) 12.5 mg, Oral, EVERY 6 HOURS PRN, Nausea, Vomiting, Starting on Tue11/18/20 at 1747, Post-op sodium chloride 0.9 % 1,000 mL with gentamicin (GARAMYCIN) 80 mg (CANCELED) PRN, Starting on Tue11/18/20 at 1117, Intra-op 1117 (Given - Provider: Mejia Griffin MD - Comment: prn for irrigation) sodium chloride 0.9 % irrigation (COMPLETED) CONTINUOUS PRN, Starting on Tue11/18/20 at 1117, Intra-op 1117 (New Bag - Provider: Mejia Griffin MD - Comment: prn for bipolar) sodium chloride flush 0.9 % injection 5-40 mL 5-40 mL, Intravenous, PRN, Line Care, Starting on Tue11/18/20 at 1747, After every IV line use, Post-op thrombin kit (CANCELED) PRN, Starting on Tue11/18/20 at 1117, Intra-op 1117 (Given - Provider: Mejia Griffin MD - Comment: prn) Linked Groups Order Group 1: promethazine (PHENERGAN) tablet 12.5 mgJump to med 12.5 mg, Oral, EVERY 6 HOURS PRN, Nausea, Vomiting, Starting on Tue11/18/20 at 1747, Post-op Or ondansetron (ZOFRAN) injection 4 mgJump to med 4 mg, Intravenous, EVERY 6 HOURS PRN, Nausea, Vomiting, Starting on Tue11/18/20 at 1747
Administer if oral route cannot be used.
Post-op Care Teams (unrecognized sec tion and content) Team Status: Active Member Role Status Dates Gina Javier MD Primary Care Provider Active Team Status: Inactive Member Role Status Dates Gina Javier MD Primary Care Provider Active Sawyer Greer MD Attending Provider Active Team Status: Inactive Member Role Status Dates Gina Javier MD Primary Care Provider Active Edison Veronica II, MD Attending Provider Active Goals (unrecognized section and content) Goals may be documented in a n alternate section FOR RECORDS PERTAINING TO PATIENTS WHO ARE OR HAVE BEEN ENROLLED IN A CHEMICAL DEPENDENCY/SUBSTANCEABUSE PROGRAM, SOME INFORMATION MAY BE OMITTED. This clinical summary was aggregated from multiple sources. Caution should be exercised in using it in the provision of clinical care. This summary normalizes information from multiple sources, and as a consequence, information in this document may materially change the coding, format and clinical context of patient data. In addition, data may be omitted in some cases. CLINICAL DECISIONS SHOULD BE BASED ON THE PRIMARY CLINICAL RECORDS. [employer] [facility]. provides no warranty or guarantee of the accuracy or completeness of information in this document.
[2023-06-25 11:39] LABS: Hematocrit 39.9 % (36.0-48.0); Hemoglobin 12.6 g/dL (12.0-16.0); Immature Granulocytes Abs Auto 0.01 10^3/uL (0.00-0.03); Immature Granulocytes Pct Auto 0.3 % (0.0-0.5); Lymphocytes Absolute Auto 1.4 10^3/uL (1.2-3.8); Mean Corpuscular HGB Conc 31.6 g/dL (29.9-35.2); Mean Corpuscular Hemoglobin 27.2 pg (26.7-34.0); Mean Corpuscular Volume 86.2 fL (81.0-99.0); Mean Platelet Volume 9.4 fL (9.5-13.5); Monocytes Absolute Auto 0.3 10^3/uL (0.3-0.8); Monocytes Percent Auto 8.3 % (1.7-12.0); Neutrophils Absolute Auto 2.2 10^3/uL (1.4-6.5); Neutrophils Percent Auto 55.4 % (43.0-75.0); Platelet Count 264 10^3/uL (150-450); Red Blood Count 4.63 10^6/uL (4.20-5.40); Red Cell Distribution Width 13.5 % (11.0-15.0)
[2023-06-27 17:10] LABS: Thyroglobulin Antibody <1.0 IU/mL (0.0-0.9); Thyroid Peroxidase (TPO) Ab 18 IU/mL (0-34)
== END 2023-06-25 11:30 | disposition home or self-care (01) ==
LOC: LAB 11:30
PROVIDERS: PCP Family Medicine; Visit Provider Family Medicine
DX: E03.9 Hypothyroidism, unspecified (principal)
CPT/HCPCS: 36415; 85025; 86376; 86800

== ENCOUNTER 2023-07-15 08:41 | Outpatient (OUT) | payer BC, SELFPAY ==
--- NOTE | 2023-07-15 | XR_ITS ---
The [address] [address] Patient Name: ANA PALMER MRN: [id number] date: 1970 Sex: F Assigned Patient Location: Current Patient Location: Accession/Order Number: [id number] Exam Date: 07/15/2023 08:55 Report Date: 07/16/2023 04:26 At the request of: RAÚL GRIFFIN Procedure: XR cervical spine w flex/ext EXAMINATION: XR cervical spine w flex/ext HISTORY: CERVICAL SPINE PAIN COMPARISON: XR C-spine 05/03/2020 FINDINGS: BONES: Mechanical fusion C5-C6-C7 via anterior plate and screws. Left laminectomy C3, C4, C5 with subsequent plate placement. Straightening of normal lordotic curvature. No appreciable bone or hardware fracture. Multilevel mild degenerative facet arthropathy. DISC SPACES: Moderate narrowing C4-C5. Intervertebral spacers C5-C6 and C6-C7. PARASPINOUS: Negative. No paraspinous abnormality is seen. OTHER: Negative. XR/XR cervical spine w flex/ext IMPRESSION: 1. New surgical changes since prior study, and degenerative changes as detailed above. 2. No appreciable acute abnormality or evidence of hardware failure. Electronically authenticated by: IRENE AGUILERA Date: 07/16/2023 04:26
--- OUTSIDE RECORDS SUMMARY | 2023-07-15 08:44 | XMS_ITS | CCD ---
Author Organization [facility] Care Team Providers Care Sample Weaver Name Role Phone Gina Javier MD Primary Care Provider [phone] GINA JAVIER Primary Care Unavailable GINA JAVIER Referring Unavailable ELIAS, MEJIA H. Admitting Unavailable ELIAS, MEJIA H. Attending Unavailable ELIAS, MEJIA H. Attending Unavailable ELIAS, MEJIA H. Referring Unavailable GINA JAVIER Primary Care Unavailable GINA JAVIER Primary Care Unavailable ELIAS, MEJIA H. Referring Unavailable Gina Javier Primary Care Physician Santiago Cano Unavailable Sawyer Greer Unavailable MD Gina Javier Primary Care Provider [phone] MD Sawyer Greer Attending Provider [phone] GREG .DR FUENTES Consulting Unavailable HOY ., DR FUENTES Primary Care Unavailable HOY ., DR FUENTES Admitting Unavailable HOY ., DR FUENTES Attending Unavailable ZIEBER, DR IRENE Randolph Consulting Unavailable HOY ., [...] Primary Care Unavailable HOY ., DR FUENTES Admnatasha Unavailable GREG ., DR FUENTES Attending Unavailable MD Gina Javier Primary Care Provider [phone] MD Edison Veronica II Attending Provider Edison Veronica II Unavailable MD Gina Javier Primary Care Provider [phone] MD Edison Veronica II Attending Provider MD Gina Jvaier Primary Care Provider [phone] MD Edison Veronica II Attending Provider [phone] Sawyer Greer Attending Unavailable Gina Javier Primary Care Unavailable Sawyer Greer Admitting Unavailable [place] II, Edison Teran Attending Unavailabl e [place] II, Edison Teran Admitting Unavailabl e Gina Javier Primary Care Unavailable [place] II, Edison Teran Admitting Unavailabl e Gina Javier Primary Care Unavailable [place] ERIKA, Edison Teran Attending Unavailabl e Gina Javier Primary Care Unavailable Jeremías II, Edison Teran Attending Unavailabl e [place] II, Edison Teran Admitting Unavailabl e [place] II, Edison Teran Admitting Unavailabl e Gina Javier Primary Care Unavailable [place] II, Edison Teran Attending Unavailabl e [place] II, Edison Teran Admitting Unavailabl e Gina Javier Primary Care Unavailable [place] II, Edison Teran Attending Unavailabl e Gina Javier Primary Care Unavailable Jeremías II, Edison Teran Admitting Unavailabl e Jeremías II, Edison Teran Attending Unavailabl e Gina Javier Primary Care Unavailable [place] II, Edison Teran Admitting Unavailabl e [place] II, Edison Teran Attending Unavailabl e Allergies Allergy Classification Reported Allergen(s) Allergy Type Date of Onset Reaction(s) Facility grepafloxacin (3 sources) grepafloxacin Drug Allergy 1 [facility] (10 sources) grepafloxacin; Translations: [grepafloxacin] Drug Allergy 1 Skin reaction (observable entity) General Surgery [facility] (2 sources) grepafloxacin Drug Allergy [facility] (6 sources) Adhesive Tape; Translations: [adhesive tape] Propensity to adverse reactions 3 Itching [facility] (1 source) grepafloxacin Drug Allergy 3 [facility] Repository Medications Current Medications Medication Drug [...] oral capsule (5 sources) Start: 01-20-2023 take 26328 ug by mouth once daily Biotin Active 34686 MCG PO Daily January 19, 2023 11:00pm [...] Start: 01-20-2023 take 1 tablet by demetrice once daily Multivitamin Active 1 TAB PO [...] Not-Taking/PRN Start: 01-20-2023 take 2 capsules by [facility] every six hours Acetaminophen (Tylenol Extra Strength) 500 mg Capsule Active 1000 MG PO Q6H January 19, 2023 11:00pm take 1 capsule by mo [facility] every six hours Acetaminophen 500 MG 1 capsule as needed Orally every 6 hrs Active take 2 tablets by mo [facility] every six hours as needed for pain [...] Not-Taking/PRN docusate sodium 50 mg / sennosides, group home 8.6 mg oral tablet (9 sources) Start: [...] Once a day Not-Taking/PRN polyethylene glycol 3350 50786 mg powder for oral solution (7 sources) [...] Start: 12-16-2022 take 1 tablet by demetrice twice daily as needed traMADol HCl 50 [...] te Episodic/Chronic Other aftercare (2 sources) Other long-term (current) drug therapy; Translations: [Other long-term (current) drug therapy] Onset: 12-24-2022 Episodic Spondylosis; intervertebral disc disorders; other back problems (8 sources) Spinal stenosis in cervical region; Translations: [Spinal stenosis, cervical region] Onset: 12-24-2021 Episodic Unclassified (1 source) Other low back pain M54.59 Results Test Name Value Interpretation Reference Range Facility XR hip LT min 2V(w/wo pelvis )*on 04-20-2023 XR hip LT min 2V(w/wo pelvis)* [facility] Other XR hip LT min 2V(w/wo pelvis)* [facility] [place] [facility] Other XR hip LT min 2V(w/wo pelvis)* [address] [place] [address] [facility] Other XR hip LT min 2V(w/wo pelvis)* [place] [address] [facility] Other XR hip LT min 2V(w/wo pelvis)* XRay Report [facility] Other XR hip LT min 2V(w/wo pelvis)* Signed [facility] Other XR hip LT min 2V(w/wo pelvis)* Patient: Ana Palmer MR#: [id number] [facility] Other XR hip LT min 2V(w/wo pelvis)* : 1970 Acct:[id number] [facility] Other XR hip LT min 2V(w/wo pelvis)* Age/Sex: 52 / F ADM Date: 04/20/23 [facility] Other XR hip LT min 2V(w/wo pelvis)* Loc: [facility] Room: Type: [facility] Other XR hip LT min 2V(w/wo pelvis)* Attending Dr: Edison Veronica II, MD [facility] Other XR hip LT min 2V(w/wo pelvis)* Copies to: Edison Veronica MD [facility] Other XR hip LT min 2V(w/wo pelvis)* Ordering Provider: Edison Veronica MD [facility] Other XR hip LT min 2V(w/wo pelvis)* Date of Service: 04/20/23 [facility] Other XR hip LT min 2V(w/wo pelvis)* XR/XR hip LT min 2V(w/wo pelvis)*: S/P total left hip arthroplasty [facility] Other XR hip LT min 2V(w/wo pelvis)* AP PELVIS AND LEFT HIP - 2 views: [facility] Other XR hip LT min 2V(w/wo pelvis)* CLINICAL HISTORY: Follow-up left hip replacement [facility] Other XR hip LT min 2V(w/wo pelvis)* COMPARISON: 03/17/2023 [employer] Other XR hip LT min 2V(w/wo pelvis)* AP view of the pelvis and crosstable lateral view of the left hip were obtained. A left hip [facility] Other XR hip LT min 2V(w/wo pelvis)* prosthesis is again visualized. The hardware appears intact and unchanged from the prior. There is [facility] Other XR hip LT min 2V(w/wo pelvis)* no developing fracture or dislocation. There is minor sclerosis at the SI joints. There are no [facility] Other XR hip LT min 2V(w/wo pelvis)* significant soft tissue abnormalities. [facility] Other XR hip LT min 2V(w/wo pelvis)* XR/XR hip LT min 2V(w/wo pelvis)* [facility] Other XR hip LT min 2V(w/wo pelvis)* IMPRESSION: [facility] Other XR hip LT min 2V(w/wo pelvis)* STABLE LEFT HIP REPLACEMENT [facility] Other XR hip LT min 2V(w/wo pelvis)* Impression dictated by: Radha Godinez M.D.04/20/2023 11:47 AM [facility] Other XR hip LT min 2V(w/wo pelvis)* Dictation Location: [place] [address] [facility] Other XR hip LT min 2V(w/wo pelvis)* Transcribed By: SAAD 04/20/23 1144 [facility] Other XR hip LT min 2V(w/wo pelvis)* Dictated By: Radha Godinez MD 04/20/23 1149 [facility] Other XR hip LT min 2V(w/wo pelvis)* Signed By: [facility] Other XR hip LT min 2V(w/wo pelvis)* 04/20/23 1146 [facility] Other XR hip LT min 2V(w/wo pelvis)* [facility] [place] [address] [place] [address] XRay Report Signed Patient: Ana Palmer MR#: [id number] : 1970 Acct:[id number] Age/Sex: 52 / F ADM Date: 04/20/23 [place] [facility] [place]: Type[place] [facility] Attending Dr: Edison Veronica II, MD [...] MD 04/20/23 1146 Signed By: 04/20/23 1147 [facility] XR hip LT min 2V(w/wo pelvis )*on 03-17-2023 XR hip LT min 2V(w/wo pelvis)* [facility] Main [place] [id number] XRay Report Signed Patient: Ana Palmer MR#: [id number] : 1970 Acct:[id number] Age/Sex: 52 / F ADM Date: 03/17/23 [place] [facility] [place]: Type[place] [facility] Attending Dr: Edison Veronica II, MD [...] DO 03/17/23 1304 Signed By: 03/17/23 1305 [facility] ABO/Rh Retypeon 01-31-2023 ABO/RH Recheck Result Positive Normal [facility] Comment on above: Result Comment: PERF ORMED BY: [place] [address] PATHOLOGIST [employer] ERIC ABDI M.D. Glucose Glucometer (BldC) [M ass/Vol]Ordered By: Edison Veronica on 01-31-2023 Glucose [Mass/Vol] 179 mg/dL [facility] Comment on above: Random Glucose Refer ence Range is dependent on time and content of last meal. Glucose of more than 200 mg/dL in a nonstressed, ambulatory subject supports the diagnosis of Diabetes Mellitus. Glucose Poct Glucometerson 1 Glucose [Mass/Vol] 179 mg/dL Normal [facility] Comment on above: Result Comment: [place] om Glucose Reference Range is dependent on time and content of last meal. Glucose of more than 200 mg/dL in a nonstressed, ambulatory subject supports the diagnosis of Diabetes Mellitus. PERFORMED BY: [facility] [address] [place] [address] PATHOLOGIST [employer] ERIC ABDI M.D. Performed By: #### G RIA ####Point of Care testing, Cristóbal 01-31-2023 L ------ Specimen: [id number] Received: 02/01/23 Status: ABRAN Angulo Num: [id number] Spec Type: Surgical Subm Dr: Edison Veronica MD Tissues: A Femoral Head - Other than Fracture (LT HIP) Procedures: HE/2, Gross/Micro L3, Decalcification Age/ Patient Sex Location Account Attending Physician Ana Palmer 52/F [place] [id number] Edison Veronica MD SPEC NUM: [id number] RECD: 02/01/23 STATUS: ABRAN ANGULO NUM: [id number] CHANO: 01/31/[address] [facility] [address]: Edison Veronica MD ENTERED: 02/01/23 [facility] DR: [place] TYPE: Surgical DEPT: S ORDERED: [...] The cut surface is softened, leavitt-red, trabecular. Cleaning Associate sections are submitted in two cassettes labeled A1-A2. Specimen: [id number] Received: 02/01/23 Status: ABRAN Angulo Num: [id number] Spec Type: Surgical Subm Dr: Edison Veronica MD Tissues: A Femoral Head - Other than Fracture (LT HIP) Procedures: HE/2, Gross/Micro L3, Decalcification Patient: Ana Palmer [id number] (Continued) Specimen: [id number] Received: 02/01/23 (Continued) Signed (signature on file) Luiz Degroot MD 02/03/23 1349 Specimen: [id number] Received: 02/01/23 Status: ABRAN Angulo Num: [id number] Spec Type: Surgical Subm Dr: Edison Veronica MD Tissues: A Femoral Head - Other than Fracture (LT HIP) Procedures: HE/2, Gross/Micro L3, Decalcification Patient: Ana Palmer [id number] (Continued) Specimen: [id number] Received: 02/01/23 (Continued) Microscopic Description Two H E slides reviewed. The microscopic examination confirms the diagnosis. CPT Codes 68424, 70875 Specimen: [id number] Received: 02/01/23 Status: ABRAN Angulo Num: [id number] Spec Type: Surgical Subm Dr: Edison Veronica MD Tissues: A Femoral Head - Other than Fracture (LT HIP) Procedures: HE/2, Gross/Micro L3, Decalcification Patient: Ana Palmer [id number] (Continued) Signed (signature on file) Luiz Degroot MD 02/03/23 1349 [facility] XR hip LT 1Von 01-31-2023 XR hip LT 1V [place] [address] XRay Report Signed Patient: Ana Palmer MR#: [id number] : 1970 Acct:[id number] Age/Sex: 52 / F ADM Date: 01/31/23 Loc: [place] Room: Type: [facility] Attending Dr: Edison Veronica II, MD [...] Reggie Vallejo M.D.01/31/2023 5:14 PM Dictation Location: RADIO-PC-07 Transcribed By: SAAD 01/31/231713 Dictated By: Reggie Vallejo II, MD 01/31/231711 Signed By: 01/31/231713 Normal [facility] XR low pelvis w/LT x-table h ipon 01-31-2023 XR low pelvis w/LT x-table hip [place] [address] XRay Report Signed Patient: Ana Palmer MR#: [id number] : 1970 Acct:[id number] Age/Sex: 52 / F ADM Date: 01/31/23 Loc: [place] Room: Type: [facility] Attending Dr: Edison Veronica II, MD [...] Reggie Vallejo M.D.01/31/2023 5:10 PM Dictation Location: RADIO-PC-07 Transcribed By: SAAD 01/31/231709 Dictated By: Reggie Vallejo II, MD 10/16/23 1709 Signed By: 01/31/23 1710 Normal [facility] Automated erythrocytes count in urine sediment (number/area)Ordered By: Edison Veronica on 01-20-2023 RBC Auto (Urine sed) [#/Area] None seen [HPF] 0-4 [facility] Automated leukocytes count i n urine sediment (number/area)Ordered By: Edison Veronica on 01-20-2023 WBC Auto (Urine sed) [#/Area] 3-4 [HPF] 0-4 [facility] Basic Metabolic Panelon Anion gap [Moles/Vol] 11.3 mmol/L Normal 6.0-15.0 [facility] Comment on above: Performed By: #### F RUC ####[facility] ,#### CBC, BMP ####[place] [address] [place] [address] [facility] Calcium [Mass/Vol] 9.2 mg/dL Normal 8.6-10.3 [facility] Comment on above: Result Comment: PERF ORMED BY: [facility] [address] [place] [address] PATHOLOGIST [employer] ERIC ABDI M.D. Performed By: #### F RUC ####[facility] ,#### CBC, BMP ####[place] [address] [place] [address] [facility] Chloride [Moles/Vol] 103 mmol/L Normal 98-107 [facility] Comment on above: Performed By: #### F RUC ####[facility] ,#### CBC, BMP ####[place] [address] [place] [address] [facility] CO2 [Moles/Vol] 29.0 mmol/L Normal 21.0-31.0 [facility] Comment on above: Performed By: #### F RUC ####[facility] ,#### CBC, BMP ####[place] [address] [place] [address] [facility] Creatinine [Mass/Vol] 0.67 mg/dL Normal 0.60-1.20 [facility] Comment on above: Performed By: #### F RUC ####[facility] ,#### CBC, BMP ####[place] [address] [place] [id number] [place] GFR/1.73 sq M.predicted MDRD (S/P/Bld) [Vol rate/Area] mL/min/{1.73_m2} Normal [facility] Comment on above: Performed By: #### F RUC ####[facility] ,#### CBC, BMP ####[address] Glucose [Mass/Vol] 149 mg/dL High 70-100 [facility] Comment on above: Result Comment: [place] Glucose Reference Range is dependent on time and content of last meal. Glucose of more than 200 mg/dL in a nonstressed, ambulatory subject supports the diagnosis of Diabetes Mellitus. ADA recommended reference range Performed By: #### F RUC ####[facility] ,#### CBC, BMP ####[place] [id number] [place] Potassium [Moles/Vol] 4.3 mmol/L Normal 3.5-5.1 [facility] Comment on above: Performed By: #### F RUC ####[facility] ,#### CBC, BMP ####[facility] [place] [address] [place] Sodium [Moles/Vol] 139 mmol/L Normal 136-145 [facility] Comment on above: Performed By: #### F RUC ####[facility] ,#### CBC, BMP ####[address] [address] [place] Urea nitrogen [Mass/Vol] 16 mg/dL Normal 7-25 [facility] Comment on above: Performed By: #### F RUC ####[facility] ,#### CBC, BMP ####[facility] [place] [address] [facility] Basophils Auto (Bld) [#/Vol] Ordered By: Edison Veronica on 01-20-2023 Basophils (Bld) [#/Vol] 0.0 10*3/uL 0.0-0.2 [facility] Basophils/100 WBC Auto (Bld) Ordered By: Edison Veronica on 01-20-2023 Basophils/100 WBC (Bld) 1.0 % . [facility] Bilirubin Test strip Ql (U)O rdered By: Edison Veronica on 01-20-2023 Bilirubin Ql (U) Negative Negative [facility] Calcium [Mass/volume] in Ser um or PlasmaOrdered By: Edison Veronica on 01-20-2023 Calcium [Mass/Vol] 9.2 mg/dL 8.6-10.3 [facility] Carbon dioxide, total [Moles /volume] in Serum or PlasmaOrdered By: Edison Veronica on 01-20-2023 CO2 [Moles/Vol] 29.0 mmol/L 21.0-31.0 [facility] Chloride [Moles/volume] in S sima or PlasmaOrdered By: Edison Veronica on 01-20-2023 Chloride [Moles/Vol] 103 mmol/L 98-107 [facility] Color Auto (U)Ordered By: Lilian Veronica on 01-20-2023 Color (U) Yellow Yellow [facility] Complete Blood Count Auto Di ffon 01-20-2023 Basophils (Bld) [#/Vol] 0.0 10*3/uL Normal 0.0-0.2 [facility] Comment on above: Result Comment: PERF ORMED BY: [facility] [address] [place] [address] PATHOLOGIST [employer] ERIC ABDI M.D. Performed By: #### F RUC ####[facility] ,#### CBC, BMP ####[address] Basophils/100 WBC (Bld) 1.0 % Normal . [facility] Comment on above: Performed By: #### F RUC ####[facility] ,#### CBC, BMP ####[address] Eosinophils (Bld) [#/Vol] 0.0 10*3/uL Normal 0.0-0.45 [facility] Comment on above: Performed By: #### F RUC ####[facility] ,#### CBC, BMP ####[address] Eosinophils/100 WBC (Bld) 0.0 % Normal . [facility] Comment on above: Performed By: #### F RUC ####[facility] ,#### CBC, BMP ####[address] Erythrocyte distribution width (RBC) [Ratio] 14.0 % Normal 11.9-15.3 [facility] Comment on above: Performed By: #### F RUC ####[facility] ,#### CBC, BMP ####[address] Hematocrit (Bld) [Volume fraction] 36.6 % Normal 34.0-46.4 [facility] Comment on above: Performed By: #### F RUC ####[facility] ,#### CBC, BMP ####[address] Hemoglobin (Bld) [Mass/Vol] 12.3 g/dL Normal 11.8-15.4 [facility] Comment on above: Performed By: #### F RUC ####[facility] ,#### CBC, BMP ####[address] Lymphocytes (Bld) [#/Vol] 1.3 10*3/uL Normal 1.00-4.8 [facility] Comment on above: Performed By: #### F RUC ####[facility] ,#### CBC, BMP ####[address] Lymphocytes/100 WBC (Bld) 36.7 % Normal . [facility] Comment on above: Performed By: #### F RUC ####[facility] ,#### CBC, BMP ####[address] MCH (RBC) [Entitic mass] 27.3 pg Normal 24.7-34.3 [facility] Comment on above: Performed By: #### F RUC ####[facility] ,#### CBC, BMP ####[address] MCV (RBC) [Entitic vol] 81.4 fL Normal 80-100 [facility] Comment on above: Performed By: #### F RUC ####[facility] ,#### CBC, BMP ####[address] Mean Corpuscular HGB Conc 33.5 g/dL Normal 32.0-35.0 [facility] Comment on above: Performed By: #### F RUC ####[facility] ,#### CBC, BMP ####[address] Monocytes (Bld) [#/Vol] 0.3 10*3/uL Normal 0.0-0.8 [facility] Comment on above: Performed By: #### F RUC ####[facility] ,#### CBC, BMP ####[address] Monocytes/100 WBC (Bld) 7.2 % Normal . [facility] Comment on above: Performed By: #### F RUC ####[facility] ,#### CBC, BMP ####[address] Neutrophils (Bld) [#/Vol] 2.0 10*3/uL Normal 1.8-7.7 [facility] Comment on above: Performed By: #### F RUC ####[facility] ,#### CBC, BMP ####[address] Neutrophils/100 WBC (Bld) 55.1 % Normal . [facility] Comment on above: Performed By: #### F RUC ####[facility] ,#### CBC, BMP ####[address] NRBC% 0.1 /100{WBC} Normal 0-0.5 [facility] Comment on above: Performed By: #### F RUC ####[facility] ,#### CBC, BMP ####[address] Platelet mean volume (Bld) [Entitic vol] 8.2 fL Normal 6.3-10.7 [facility] Comment on above: Performed By: #### F RUC ####[facility] ,#### CBC, BMP ####[address] Platelets (Bld) [#/Vol] 248 10*3/uL Normal 150-450 [facility] Comment on above: Performed By: #### F RUC ####[facility] ,#### CBC, BMP ####[place] [address] [place] RBC (Bld) [#/Vol] 4.50 10*6/uL Normal 3.60-5.00 [facility] Comment on above: Performed By: #### F RUC ####[facility] ,#### CBC, BMP ####[place] [address] [place] [address] [facility] WBC (Bld) [#/Vol] 3.5 10*3/uL Low 3.8-11.6 [facility] Comment on above: Performed By: #### F RUC ####[facility] ,#### CBC, BMP ####[place] [address] [place] [address] [facility] Creatinine [Mass/volume] in Serum or PlasmaOrdered By: Edison Veronica on 01-20-2023 Creatinine [Mass/Vol] 0.67 mg/dL 0.60-1.20 [facility] Dipstick and Microscopicon 1 Appearance (U) Clear Normal Clear [facility] Comment on above: Order Comment: Name Collection Type:: Clean-Voided Midstream Performed By: #### A DDONUAPLUS ####[place] [id number] [facility] Bacteria,Urine None Seen Normal None Seen [facility] Comment on above: Order Comment: Name Collection Type:: Clean-Voided Midstream Performed By: #### A DDONUAPLUS ####[address] [address] [facility] Bilirubin,Urine Negative Normal Negative [facility] Comment on above: Order Comment: Name Collection Type:: Clean-Voided Midstream Performed By: #### A DDONUAPLUS ####[address] [address] [facility] Color (U) Yellow Normal Yellow [facility] Comment on above: Order Comment: Name Collection Type:: Clean-Voided Midstream Performed By: #### A DDONUAPLUS ####[address] [address] [place] Glucose Ql (U) Normal Normal Normal [facility] Comment on above: Order Comment: Name Collection Type:: Clean-Voided Midstream Performed By: #### A DDONUAPLUS ####[address] [address] [facility] Hyaline Casts,Urine None Seen Normal 0-8 [facility] Comment on above: Order Comment: Name Collection Type:: Clean-Voided Midstream Result Comment: PERF ORMED BY: [facility] [address] [place] [address] PATHOLOGIST [employer] ERIC ABDI M.D. Performed By: #### A DDONUAPLUS ####[address] [address] [facility] Ketones Ql (U) Negative Normal Negative [facility] Comment on above: Order Comment: Name Collection Type:: Clean-Voided Midstream Performed By: #### A DDONUAPLUS ####[address] [address] [facility] Leukocyte esterase Test strip Ql (U) 2+ High Negative [facility] Comment on above: Order Comment: Name Collection Type:: Clean-Voided Midstream Performed By: #### A DDONUAPLUS ####[address] [address] [facility] Nitrite,Urine Negative Normal Negative [facility] Comment on above: Order Comment: Name Collection Type:: Clean-Voided Midstream Performed By: #### A DDONUAPLUS ####[address] [address] [facility] Occult Blood,Urine Negative Normal Negative [facility] Comment on above: Order Comment: Name Collection Type:: Clean-Voided Midstream Result Comment: PERF ORMED BY: [facility] [address] [place] [address] PATHOLOGIST [employer] ERIC ABDI M.D. Performed By: #### A DDONUAPLUS ####[address] [address] [facility] pH (U) 6.0 [pH] Normal 5.0-9.0 [facility] Comment on above: Order Comment: Name Collection Type:: Clean-Voided Midstream Performed By: #### A DDONUAPLUS ####[address] [address] [facility] Protein,Urine Negative Normal Negative [facility] Comment on above: Order Comment: Name Collection Type:: Clean-Voided Midstream Performed By: #### A DDONUAPLUS ####[address] [address] [facility] RBC,Urine None Seen Normal 0-4 [facility] Comment on above: Order Comment: Name Collection Type:: Clean-Voided Midstream Performed By: #### A DDONUAPLUS ####[address] [address] [facility] Specificy [place],Urine 1.008 Normal 1.001-1.03 0 [facility] Comment on above: Order Comment: Name Collection Type:: Clean-Voided Midstream Performed By: #### A DDONUAPLUS ####[address] [address] [facility] Squamous Epithelial Cell,Urine None Seen Normal 0-2 [facility] Comment on above: Order Comment: Name Collection Type:: Clean-Voided Midstream Performed By: #### A DDONUAPLUS ####[address] [address] [facility] Urobilinogen,Urine Normal Normal Normal [facility] Comment on above: Order Comment: Name Collection Type:: Clean-Voided Midstream Performed By: #### A DDONUAPLUS ####[address] [address] [address] [facility] WBC,Urine 3-4 Normal 0-4 [facility] Comment on above: Order Comment: Name Collection Type:: Clean-Voided Midstream Performed By: #### A DDONUAPLUS ####[address] [address] [facility] ECG 12 lead ECGon 01-20-2023 ECG 12 lead ECG [facility] [address] [place] [address] [place] [address] Electrocardiograph Report Signed Patient: Ana Palmer MR#: [id number] : 1970 Acct:[id number] Age/Sex: 52 / F ADM Date: 01/20/23 Loc: PS Room: Type: [facility] Attending Dr: Edison Veronica II, MD Ordering [...] previous ECGs available Confirmed by OLIVERIO BARTH [id number] on 01/21/2023 7:23:27 AM Referred By: JEREMÍAS Electronically Signed By:SILVIA DURON MD [facility] Transcribed By: MUS Signed By Jaspal Duron MD 01/21/23722 Normal [facility] Eosinophils Auto (Bld) [#/Vo l]Ordered By: Edison Veronica on 01-20-2023 Eosinophils (Bld) [#/Vol] 0.0 10*3/uL 0.0-0.45 [facility] Eosinophils/100 WBC Auto (Bl d)Ordered By: Edison Veronica on 01-20-2023 Eosinophils/100 WBC (Bld) 0.0 % . [facility] Erythrocyte distribution wid th Auto (RBC) [Ratio]Ordered By: Edison Veronica on 01-20-2023 Erythrocyte distribution width (RBC) [Ratio] 14.0 % 11.9-15.3 [facility] Fructosamineon 01-20-2023 Fructosamine 196 umol/L Normal 0-285 [facility] Comment on above: Result Comment: Publ ished reference interval for apparently healthy subjects between age 20 and 60 is 205 - 285 umol/L and in a poorly controlled diabetic population is 228 - 563 umol/L with a mean of 396 umol/L. Performed at: [address] [id number] Acute Care Physician: Lane Rivera PhD, Phone: [phone] PERFORMED BY: [facility] [address] [facility] [place] [address] PATHOLOGIST [employer] ERIC ABDI M.D. Performed By: #### F RUC ####[facility] ,#### CBC, BMP ####[facility] [id number] Fructosamine [Moles/volume] in Serum or PlasmaOrdered By: Edison Veronica on 01-20-2023 Fructosamine [Moles/Vol] 196 umol/L 0-285 [facility] Comment on above: Published reference interval for apparently healthysubjects between age 20 and 60 is 205 - 285 umol/L and in apoorly controlled diabetic population is 228 - 563 umol/Lwith a mean of 396 umol/L.Performed at: - [place] [place] [id number] [place] [address]Lab Director: Lane Rivera PhD, Phone: [phone] Glucose [Mass/volume] in Ser um or PlasmaOrdered By: Edison Veronica on 01-20-2023 Glucose [Mass/Vol] 149 mg/dL 70-100 [facility] Comment on above: ADA recommended refe rence rangeRandom Glucose Reference Range is dependent on time and content of last meal. Glucose of more than 200 mg/dL in a nonstressed, ambulatory subject supports the diagnosis of Diabetes Mellitus. Hematocrit Auto (Bld) [Volum e fraction]Ordered By: Edison Veronica on 01-20-2023 Hematocrit (Bld) [Volume fraction] 36.6 % 34.0-46.4 [facility] Hemoglobin [Mass/volume] in BloodOrdered By: Edison Veronica on 01-20-2023 Hemoglobin (Bld) [Mass/Vol] 12.3 g/dL 11.8-15.4 [facility] Ketones Auto test strip (U) [Mass/Vol]Ordered By: Edison Veronica on 01-20-2023 Ketones (U) [Mass/Vol] Negative Negative [facility] Laboratory - UrinalysisOrder ed By: Edison Veronica on 01-20-2023 Hyaline casts LM Ql (Urine sed) None seen [LPF] 0-8 [facility] Leukocytes [#/volume] correc carola for nucleated erythrocytes in Blood by Automated counOrdered By: Edison Veronica on 01-20-2023 WBC corrected for nucl RBC Auto (Bld) [#/Vol] 3.5 10*3/uL 3.8-11.6 [facility] Lymphocytes Auto (Bld) [#/Vo l]Ordered By: Edison Veronica on 01-20-2023 Lymphocytes (Bld) [#/Vol] 1.3 10*3/uL 1.00-4.8 [facility] Lymphocytes/100 WBC Auto (Bl d)Ordered By: Edison Veronica on 01-20-2023 Lymphocytes/100 WBC (Bld) 36.7 % . [facility] MCH Auto (RBC) [Entitic mass ]Ordered By: Edison Veronica on 01-20-2023 MCH (RBC) [Entitic mass] 27.3 pg 24.7-34.3 [facility] MCHC Auto (RBC) [Mass/Vol]Or dered By: Edison Veronica on 01-20-2023 MCHC (RBC) [Mass/Vol] 33.5 g/dL 32.0-35.0 [facility] MCV Auto (RBC) [Entitic vol] Ordered By: Edison Veronica on 01-20-2023 MCV (RBC) [Entitic vol] 81.4 fL 80-100 [facility] Monocytes Auto (Bld) [#/Vol] Ordered By: Edison Veronica on 01-20-2023 Monocytes (Bld) [#/Vol] 0.3 10*3/uL 0.0-0.8 [facility] Monocytes/100 WBC Auto (Bld) Ordered By: Edison Veronica on 01-20-2023 Monocytes/100 WBC (Bld) 7.2 % . [facility] Neutrophils Auto (Bld) [#/Vo l]Ordered By: Edison Veronica on 01-20-2023 Neutrophils (Bld) [#/Vol] 2.0 10*3/uL 1.8-7.7 [facility] Neutrophils/100 WBC Auto (Bl d)Ordered By: Edison Veronica on 01-20-2023 Neutrophils/100 WBC (Bld) 55.1 % . [facility] Nitrite Test strip Ql (U)Ord ered By: Edison Veronica on 01-20-2023 Nitrite Ql (U) Negative Negative [facility] No Panel InformationOrdered By: Edison Veronica on 01-20-2023 Estimated GFR (CKD-EPI) > 60.0 mL/Min [facility]acy Creatinine Clearance (Chem N/A [facility] Nucleated erythrocytes [Pres ence] in Blood by Automated countOrdered By: Edison Veronica on 01-20-2023 Nucleated RBC Auto Ql (Bld) 0.1 /100{WBC} 0-0.5 [facility] PST Type and Screenon 2022 ABO and Rh group Nom (Bld) Blood group O Rh(D) positive Normal [facility] Comment on above: Order Comment: Date of Surgery: [id number] Result Comment: PERF ORMED BY: [facility] [address] [place] [address] PATHOLOGIST [employer] ERIC ABDI M.D. Platelet mean volume Auto (B ld) [Entitic vol]Ordered By: Edison Veronica on 01-20-2023 Platelet mean volume (Bld) [Entitic vol] 8.2 fL 6.3-10.7 [facility] Platelets Auto (Bld) [#/Vol] Ordered By: Edison Veronica on 01-20-2023 Platelets (Bld) [#/Vol] 248 10*3/uL 150-450 [facility] Potassium [Moles/volume] in Serum or PlasmaOrdered By: Edison Veronica on 01-20-2023 Potassium [Moles/Vol] 4.3 mmol/L 3.5-5.1 [facility] Protein Auto test strip (U) [Mass/Vol]Ordered By: Edison Veronica on 01-20-2023 Protein (U) [Mass/Vol] Negative Negative [facility] RBC Auto (Bld) [#/Vol]Ordere d By: Edison Veronica on 01-20-2023 RBC (Bld) [#/Vol] 4.50 10*6/uL 3.60-5.00 [facility] Serum or plasma anion gap de terminationOrdered By: Edison Veronica on 01-20-2023 Anion gap [Moles/Vol] 11.3 mmol/L 6.0-15.0 [facility] Sodium [Moles/volume] in Ser um or PlasmaOrdered By: Edison Veronica on 01-20-2023 Sodium [Moles/Vol] 139 mmol/L 136-145 [facility] Specific gravity Auto test s trip (U) [Rel density]Ordered By: Edison Veronica on 01-20-2023 Specific gravity (U) [Rel density] 1.008 1.001-1.03 0 [facility] Squamous epithelial cells de tection in urine sediment by light microscopyOrdered By: Edison Veronica on 01-20-2023 Epithelial cells.squamous LM Ql (Urine sed) None seen [HPF] 0-2 [facility] Urea nitrogen [Mass/volume] in Serum or PlasmaOrdered By: Edison Veronica on 01-20-2023 Urea nitrogen [Mass/Vol] 16 mg/dL 7-25 [facility] Urine bacteria detection by automated methodOrdered By: Edison Veronica on 01-20-2023 Bacteria Auto Ql (U) None seen None Seen [facility] Urine clarity by refractomet ry automatedOrdered By: Edison Veronica on 01-20-2023 Clarity Refractometry automated (U) Clear Clear [facility] Urine glucose measurement by automated test strip (mass/volume)Ordered By: Edison Veronica on 01-20-2023 Glucose Auto test strip (U) [Mass/Vol] Normal mg/dL Normal [facility] Urine hemoglobin detection b y automated test stripOrdered By: Edison Veronica on 01-20-2023 Hemoglobin Auto test strip Ql (U) Negative Negative [facility] Urine leukocyte esterase det ection by automated test stripOrdered By: Edison Veronica on 01-20-2023 Leukocyte esterase Auto test strip Ql (U) 2+ Negative [facility] Urobilinogen Auto test strip (U) [Mass/Vol]Ordered By: Edison Veronica on 01-20-2023 Urobilinogen (U) [Mass/Vol] Normal mg/dL Normal [facility] WBC Auto (Bld) [#/Vol]Ordere d By: Edison Veronica on 01-20-2023 WBC (Bld) [#/Vol] 3.5 10*3/uL 3.8-11.6 [facility] pH Auto test strip (U)Ordere d By: Edison Veronica on 01-20-2023 pH (U) 6.0 [pH] 5.0-9.0 [facility] A1C with Estimated Average G luon 12-24-2022 Glucose [Mass/Vol] 111 mg/dL Normal [facility] Comment on above: Order Comment: Reaso n for Exam Primary osteoarthritis of left hip;Age-related osteoporosis Result Comment: PERF ORMED BY: [place] [address] PATHOLOGIST [employer] ERIC ABDI M.D. Performed By: #### H GB, CUMRSA, ALB, [id number], A1C WTH eA #### [facility] [address] [place] [address] #### NICOTINE #### [facility] , HbA1c (Bld) [Mass fraction] 5.5 % Normal 4.3-5.6 [facility] Comment on above: Order Comment: Reaso n for Exam Primary osteoarthritis of left hip;Age-related osteoporosis Result Comment: Incr eased risk for diabetes: 5.7 - 6.4 diabetes: >6.4 glycemic control for adults with diabetes: <7.0 Performed By: #### H GB, CUMRSA, ALB, [id number], A1C WTH eA #### [facility] [address] [place] [address] [place] #### NICOTINE #### [facility] , Albumin Levelon 12-24-2022 Albumin [Mass/Vol] 4.5 g/dL Normal 3.5-5.7 [facility] Comment on above: Order Comment: Reaso n for Exam Primary osteoarthritis of left hip;Age-related osteoporosis Performed By: #### H GB, CUMRSA, ALB, [id number], A1C WTH eA #### [facility] [address] [place] [address] [place] #### NICOTINE #### [facility] , Albumin [Mass/volume] in Ser um or Plasma by Bromocresol green (BCG) dye binding methoOrdered By: Edison Veronica on 12-24-2022 Albumin BCG dye [Mass/Vol] 4.5 g/dL 3.5-5.7 [facility] Cotinine [Mass/volume] in Se rum or PlasmaOrdered By: Edison Veronica on 12-24-2022 Cotinine [Mass/Vol] <1.0 ng/mL . [facility] Comment on above: This test was develo ped and its performance characteristicsdetermined by [facility]. It has not been cleared orapproved by the Food and Drug Administration.Cotinine levels greater than 20.0 are consistent with theuse of tobacco or tobacco cessation products.Performed at: [facility] [address] [id number] Director: Antonio Dumont MD, Phone: [phone] Glucose mean value [Mass/vol ume] in Blood Estimated from glycated hemoglobinOrdered By: Edison Veronica on 12-24-2022 Average glucose Estimated from glycated hemoglobin (Bld) [Mass/Vol] 111 mg/dL [facility] Hemoglobinon 12-24-2022 Hemoglobin (Bld) [Mass/Vol] 13.0 g/dL Normal 11.8-15.4 [facility] Comment on above: Order Comment: Reaso n for Exam Primary osteoarthritis of left hip;Age-related osteoporosis Result Comment: PERF ORMED BY: [place] [address] PATHOLOGIST [employer] ERIC ABDI M.D. Performed By: #### H GB, CUMRSA, ALB, [id number], A1C WTH eA #### [place] [address] [place] #### NICOTINE #### [facility] , Hemoglobin A1c percentageOrd ered By: Edison Veronica on 12-24-2022 HbA1c (Bld) [Mass fraction] 5.5 % 4.3-5.6 [facility] Comment on above: Increased risk for d iabetes: 5.7 - 6.4diabetes: >6.4glycemic control for adults with diabetes: <7.0 Hemoglobin [Mass/volume] in BloodOrdered By: Edison Veronica on 12-24-2022 Hemoglobin (Bld) [Mass/Vol] 13.0 g/dL 11.8-15.4 [facility] MRSA Cultureon 12-24-2022 MRSA Culture Reason for Exam Prim jody osteoarthritis of left hip;Age-related osteoporosis Nasal Reason for Exam: Primary osteoarthritis of left hip;Age-related osteoporosis : Nasal No MRSA Isolated 2 Days PERFORMED BY: [place] [address] PATHOLOGIST [employer]IC ABDI M.D. Normal [facility] Comment on above: Performed By: #### H GB, CUMRSA, ALB, [id number], A1C WTH eA #### [facility] [address] [place] [address] #### NICOTINE #### [facility] , Nicotine [Mass/volume] in Se rum or PlasmaOrdered By: Edison Veronica on 12-24-2022 Nicotine [Mass/Vol] <1.0 ng/mL . [facility] Comment on above: This test was develo ped and its performance characteristicsdetermined by [facility]. It has not been cleared orapproved by the Food and Drug Administration.Nicotine levels greater than 2.0 are consistent with theuse of tobacco or tobacco cessation products. Nicotine/Cotinine Bloodon Cotinine, Blood <1.0 Normal . [facility] Comment on above: Order Comment: Reaso n for Exam Primary osteoarthritis of left hip;Age-related osteoporosis Result Comment: This test was developed and its performance characteristics determined by [facility]. It has not been cleared or approved by the Food and Drug Administration. Cotinine levels greater than 20.0 are consistent with the use of tobacco or tobacco cessation products. Performed at: [facility] [id number] Acute Care Physician: Antonio Dumont MD, Phone: [phone] PERFORMED BY: [place] [address] PATHOLOGIST [employer] ABDI M.D. Performed By: #### H GB, CUMRSA, ALB, [id number], A1C WTH eA #### [address] #### NICOTINE #### [facility] , Nicotine, Blood <1.0 Normal . [facility] Comment on above: Order Comment: Reaso n for Exam Primary osteoarthritis of left hip;Age-related osteoporosis Result Comment: This test was developed and its performance characteristics determined by [facility]. It has not been cleared or approved by the Food and Drug Administration. Nicotine levels greater than 2.0 are consistent with the use of tobacco or tobacco cessation products. Performed By: #### H GB, CUMRSA, ALB, [id number], A1C WTH eA #### [address] #### NICOTINE #### [facility] , Vitamin D 25 Hydroxy Totalon 12-24-2022 Vitamin D 25 Hydroxy Total 50.9 ng/mL Normal 30-100 [facility] Comment on above: Order Comment: Reaso n for Exam Primary osteoarthritis of left hip;Age-related osteoporosis Result Comment: AVINASH MIN D STATUS 25([place])VITAMIN D RANGE (ng/mL) Deficient <20 Insufficient 20 to <30 Sufficient 30 to 100 Reference: Casandra MF,Maddi NC, Adam WHITE, et al. Evaluation,treatment, and prevention of vitamin D deficiency; an Endocrine Society clinical practice guideline. JCEM. 2010; 96(7):1911-30. PERFORMED BY: [place] [address] PATHOLOGIST [employer]IC ABDI M.D. Performed By: #### H GB, CUMRSA, ALB, [id number], A1C WTH eA #### [address] #### NICOTINE #### [facility] , Vitamin D+Metabolites [Mass/ volume] in Serum or PlasmaOrdered By: Edison Veronica on 12-24-2022 Vitamin D+Metabolites [Mass/Vol] 50.9 ng/mL 30-100 [facility] Comment on above: VITAMIN D STATUS 25( [place])VITAMIN D RANGE (ng/mL) Deficient <20 Insufficient 20 to <30Sufficient 30 to 100Reference: Casandra MF,Maddi ROBIN, Adam WHITE, et al. Evaluation,treatment, and prevention of vitamin D deficiency; an Endocrine Society clinical practice guideline. JCEM. 2010; 96(7):1911-30. Wound methicillin resistant Staphylococcus aureus (MRSA) cultureOrdered By: Edison Veronica on 12-24-2022 MRSA isol Org specific cx Ql (Unsp spec) No MRSA Isolated 2 Days [facility] MRSA isol Org specific cx Ql (Unsp spec) No MRSA Isolated 2 Days [facility] XR hip LT min 2V(w/wo pelvis )*on 12-24-2022 XR hip LT min 2V(w/wo pelvis)* [facility] [place] [address] [place] [address] XRay Report Signed Patient: Ana Palmer MR#: [id number] : 1970 Acct:[id number] Age/Sex: 52 / F ADM Date: 12/24/22 [place] [facility] [place]: Type: [facility] Attending Dr: Edison Veronica II, MD [...] Wes Serrano M.D.12/24/2022 2:38 PM Dictation Location: [place] [address] Transcribed By: [facility] 12/24/22 143 Dictated By: Wes Serrano DO 12/24/221431 Signed By: 12/24/22 143 [facility] MG MAMM SCREEN 3D ADALBERTO CADon 09-09-2022 MG MAMM SCREEN 3D ADALBERTO CAD Patient: ANA PALMER Exam Date: 09/09/2022 : 1970 Gender:F Ordering : DR GINA JAVIER . Admission #: [id number] Family : Order #: [id number] CLICK HERE TO VIEW EXAM RADIOLOGY REPORT [...] with aml cancer at age 24. LOCATION: [facility] BREAST COMPOSITION: Heterogeneously dense,which may obscure small [...] Gerber MD on 09/09/2022 at 12:06 Normal [facility] MR hip LT wo conon MR hip LT wo con [facility] [place] [address] [place] [address] MRI Report Signed Patient: Ana Palmer MR#: [id number] : 1970 Acct:[id number] Age/Sex: 51 / F ADM Date: 09/03/22 Loc: [facility] Room: Type: [facility] Attending Dr: Sawyer Greer MD Copies to: Sawyer Greer MD Ordering [...] Wes Serrano M.D.09/03/2022 3:31 PM Dictation Location: [place] [address] Transcribed By: [facility] 09/03/22 1531 Dictated By: Wes Serrano DO 09/03/22 1509 Signed By: 09/03/22 1531 [facility] CBC AUTO DIFFon 07-08-2022 BASO # 0.0 103/ul Normal 0.0-0.1 [facility] Comment on above: Performed By: #### C BC #### [facility] [address] [address] [address] Juliana Brooks Basophils/100 WBC (Bld) 0.9 % Normal 0.2-2.0 [facility] Comment on above: Performed By: #### C BC #### [facility] [address] [place] [address] Dr. Juliana Brooks EO # 0.0 103/ul Normal 0.0-0.7 [facility] Comment on above: Performed By: #### C BC #### [facility] [address] [place] [address] Dr. Juliana Brooks Eosinophils/100 WBC (Bld) 0.4 % Critically low 0.9-7.0 [facility] Comment on above: Performed By: #### C BC #### [facility] [address] [place] [address] Dr. Juliana Brooks Erythrocyte distribution width (RBC) [Ratio] 16.3 % Critically high 11.0-15.0 [facility] Comment on above: Performed By: #### C BC #### [facility] [address] [place] [address] Dr. Juliana Brooks Hematocrit (Bld) [Volume fraction] 37.3 % Normal 36.0-48.0 [facility] Comment on above: Performed By: #### C BC #### [facility] [address] [place] [address] Dr. Juliana Brooks Hemoglobin (Bld) [Mass/Vol] 11.1 g/dL Critically low 12.0-16.0 [facility] Comment on above: Performed By: #### C BC #### [facility] [address] [place] [address] Dr. Juliana Brooks IG # 0.01 10e3/ul Normal 0.00-0.03 [facility] Comment on above: Performed By: #### C BC #### [facility] [address] [place] [address] Dr. Juliana Brooks IG % 0.2 % Normal 0.0-0.5 [facility] Comment on above: Performed By: #### C BC #### [facility] [address] [place] [address] [address] Juliana Brooks LYMPH # 1.6 103/ul Normal 1.2-3.8 [facility] Comment on above: Performed By: #### C BC #### [facility] [address] [place] [address] Dr. Juliana Brooks Lymphocytes/100 WBC (Bld) 33.0 % Normal 20.5-60.0 [facility] Comment on above: Performed By: #### C BC #### [facility] [address] [place] [address] Dr. Juliana Brooks MANUAL DIFF REQ NO Normal [facility] Comment on above: Performed By: #### C BC #### [facility] [address] [place] [address] Dr. Juliana Brooks MCH (RBC) [Entitic mass] 23.2 pg Critically low 26.7-34.0 [facility] Comment on above: Performed By: #### C BC #### [facility] [address] [place] [address] Dr. Juliana Brooks MCHC (RBC) [Mass/Vol] 29.8 g/dL Critically low 29.9-35.2 [facility] Comment on above: Performed By: #### C BC #### [facility] [address] [place] [address] Dr. Juliana Brooks MCV (RBC) [Entitic vol] 78.0 fL Critically low 81.0-99.0 [facility] Comment on above: Performed By: #### C BC #### [facility] [address] [place] [address] Dr. Juliana Brooks MONO # 0.5 103/ul Normal 0.3-0.8 [facility] Comment on above: Performed By: #### C BC #### [facility] [address] [place] [address] Dr. Juliana Brooks Monocytes/100 WBC (Bld) 10.0 % Normal 1.7-12.0 [facility] Comment on above: Performed By: #### C BC #### [facility] [address] [place] [address] Dr. Juliana Brooks NEUT # 2.6 103/ul Normal 1.4-6.5 [facility] Comment on above: Performed By: #### C BC #### [facility] [address] [place] [address] Dr. Juliana Brooks Neutrophils/100 WBC (Bld) 55.5 % Normal 43.0-75.0 [facility] Comment on above: Performed By: #### C BC #### [facility] [address] [place] [address] Dr. Juliana Brooks Platelet mean volume (Bld) [Entitic vol] 10.2 fL Normal 9.5-13.5 [facility] Comment on above: Performed By: #### C BC #### [facility] [address] [place] [address] Dr. Juliana Brooks PLT 320 103/ul Normal 150-450 [facility] Comment on above: Performed By: #### C BC #### [facility] [address] [place] [address] Dr. Juliana Brooks RBC 4.78 106/ul Normal 4.20-5.40 [facility] Comment on above: Performed By: #### C BC #### [facility] [address] [place] [address] Dr. Juliana Brooks WBC 4.7 103/ul Normal 4.0-11.0 [facility] Comment on above: Performed By: #### C BC #### [facility] [address] [place] [address] Dr. Juliana Brooks FREE THYROXINE INDEX T7on FTI 3.24 Normal 1.30-4.50 [facility] Comment on above: Performed By: #### T 7, TSH, CMP, LIPID #### [facility] [address] [place] [address] Dr. Juliana Brooks T3U 36.0 % Normal 30.0-39.0 [facility] Comment on above: Performed By: #### T 7, TSH, CMP, LIPID #### [facility] [address] [place] [address] [address] Juliana Brooks T4 [Mass/Vol] 9.00 ug/dL Normal 4.80-13.90 [facility] Comment on above: Performed By: #### T 7, TSH, CMP, LIPID #### [facility] [address] [place] [address] Dr. Juliana Brooks GLYCOHEMOGLOBIN A1Con 2022 ADA RECOMMENDATION SEE BELOW Normal [facility] Comment on above: Result Comment: ADA RECOMMENDED LIMIT 4.0 - 6.0 ADA THERAPEUTIC TARGET < 7.0 ACTION SUGGESTED > 7.0 Performed By: #### A 1C #### [facility] [address] [place] [address] Dr. Juliana Brooks Glucose [Mass/Vol] 137 mg/dL Normal [facility] Comment on above: Performed By: #### A 1C #### [facility] [address] [address] [address] Juliana Brooks HbA1c (Bld) [Mass fraction] 6.4 % Critically high 4.5-6.2 [facility] Comment on above: Performed By: #### A 1C #### [facility] [address] [place] [address] Dr. Juliana Brooks IRONon 07-08-2022 Iron [Mass/Vol] 54.0 ug/dL Normal 50.0-170.0 [facility] Comment on above: Performed By: #### I SARAH #### [facility] [address] [place] [address] Dr. Juliana Brooks LIPID PROFILEon 07-08-2022 CHOL-HDL RATIO NORM SEE BELOW Normal [facility] Comment on above: Result Comment: 3.3 - 4.4 LOW RISK 4.4 - 7.1 AVERAGE RISK 7.1 - 11.0 MODERATE RISK >11.0 HIGH RISK Performed By: #### T 7, TSH, CMP, LIPID #### [facility] [address] [place] [address] Dr. Juliana Brooks Cholesterol [Mass/Vol] 159 mg/dL Normal <=200 [facility] Comment on above: Performed By: #### T 7, TSH, CMP, LIPID #### [facility] [address] [address] [address] Juliana Brooks Cholesterol in HDL [Mass/Vol] 74 mg/dL Critically high 40-60 [facility] Comment on above: Performed By: #### T 7, TSH, CMP, LIPID #### [facility] [address] [address] [address] Juliana Brooks Cholesterol in LDL [Mass/Vol] 74.4 mg/dL Normal [facility] Comment on above: Performed By: #### T 7, TSH, CMP, LIPID #### [facility] [address] [address] [address] Juliana Brooks Cholesterol.total/Cho lesterol in HDL [Mass ratio] 2.1 {ratio} Normal [facility] Comment on above: Performed By: #### T 7, TSH, CMP, LIPID #### [facility] [address] [address] [address] Juliana Brooks HDL NORMAL > or = 60 mg/dl - LO W CARDIOVASCULAR RISK <40 mg/dl - HIGH CARDIOVASCULAR RISK Normal [facility] Comment on above: Performed By: #### T 7, TSH, CMP, LIPID #### [facility] [address] [address] [address] Juliana Brooks LDL CALC NORMAL SEE BELOW Normal [facility] Comment on above: Result Comment: <100 mg/dl OPTIMAL 100 - 129 mg/dl NEAR OR ABOVE OPTIMAL 130 - 159 mg/dl BORDERLINE HIGH 160 - 189 mg/dl HIGH >190 mg/dl VERY HIGH Performed By: #### T 7, TSH, CMP, LIPID #### [facility] [address] [address] [address] Juliana Brooks Triglyceride [Mass/Vol] 53 mg/dL Normal <=150 [facility] Comment on above: Performed By: #### T 7, TSH, CMP, LIPID #### [facility] [address] [address] [address] Juliana Brooks VLDL CALC 10.6 mg/dL Normal [facility] Comment on above: Performed By: #### T 7, TSH, CMP, LIPID #### [facility] [address] [place] [address] Dr. Juliana Brooks PROF 14(COMP METB)on 023 Albumin [Mass/Vol] 3.6 g/dL Normal 3.4-5.0 [facility] Comment on above: Performed By: #### T 7, TSH, CMP, LIPID #### [facility] [address] [place] [address] Dr. Juliana Brooks Albumin/Globulin [Mass ratio] 1.1 {ratio} Normal [facility] Comment on above: Performed By: #### T 7, TSH, CMP, LIPID #### [facility] [address] [place] [address] Dr. Juliana Brooks ALP [Catalytic activity/Vol] 107 U/L Normal 46-116 [facility] Comment on above: Performed By: #### T 7, TSH, CMP, LIPID #### [facility] [address] [place] [address] Dr. Juliana Brooks ALT [Catalytic activity/Vol] 26 U/L Normal 14-59 [facility] Comment on above: Performed By: #### T 7, TSH, CMP, LIPID #### [facility] [address] [place] [address] Dr. Juliana Brooks Anion gap [Moles/Vol] 11.1 mmol/L Normal [facility] Comment on above: Performed By: #### T 7, TSH, CMP, LIPID #### [facility] [address] [place] [address] Dr. Juliana Brooks AST [Catalytic activity/Vol] 19 U/L Normal 15-37 [facility] Comment on above: Performed By: #### T 7, TSH, CMP, LIPID #### [facility] [address] [place] [address] Dr. Juliana Brooks Bilirubin [Mass/Vol] 0.3 mg/dL Normal 0.2-1.0 [facility] Comment on above: Performed By: #### T 7, TSH, CMP, LIPID #### [facility] [address] [place] [address] Dr. Juliana Brooks Calcium [Mass/Vol] 9.2 mg/dL Normal 8.5-10.1 [facility] Comment on above: Performed By: #### T 7, TSH, CMP, LIPID #### [facility] [address] [place] [address] Dr. Juliana Brooks Chloride [Moles/Vol] 106 mmol/L Normal 98-107 [facility] Comment on above: Performed By: #### T 7, TSH, CMP, LIPID #### [facility] [address] [place] [address] Dr. Juliana Brooks CO2 [Moles/Vol] 28.3 mmol/L Normal 21.0-32.[address] [facility] Comment on above: Performed By: #### T 7, TSH, CMP, LIPID #### [facility] [address] [place] [address] Dr. Juliana Brooks Creatinine [Mass/Vol] 0.60 mg/dL Normal 0.55-1.02 [facility] Comment on above: Performed By: #### T 7, TSH, CMP, LIPID #### [facility] [address] [place] [address] Dr. Juliana Brooks EGFR-AF [place]LANDER >60 Normal >=[address] [facility] Comment on above: Performed By: #### T 7, TSH, CMP, LIPID #### [facility] [address] [place] [address] Dr. Juliana Brooks EGFR-NON AF [place] >60 Normal >=60 [facility] Comment on above: Performed By: #### T 7, TSH, CMP, LIPID #### [facility] [address] [place] [address] Dr. Juliana Brooks Globulin (S) [Mass/Vol] 3.4 g/dL Normal [facility] Comment on above: Performed By: #### T 7, TSH, CMP, LIPID #### [facility] [address] [place] [address] Dr. Juliana Brooks Glucose [Mass/Vol] 104 mg/dL Normal 74-106 [facility] Comment on above: Performed By: #### T 7, TSH, CMP, LIPID #### [facility] [address] [address] [address] Juliana Brooks Potassium [Moles/Vol] 4.4 mmol/L Normal 3.5-5.1 [facility] Comment on above: Performed By: #### T 7, TSH, CMP, LIPID #### [facility] [address] [place] [address] Dr. Juliana Brooks Protein [Mass/Vol] 7.0 g/dL Normal 6.4-8.2 [facility] Comment on above: Performed By: #### T 7, TSH, CMP, LIPID #### [facility] [address] [address] [address] Juliana Brooks Sodium [Moles/Vol] 141 mmol/L Normal 136-145 [facility] Comment on above: Performed By: #### T 7, TSH, CMP, LIPID #### [facility] [address] [place] [address] Dr. Juliana Brooks Urea nitrogen [Mass/Vol] 11.0 mg/dL Normal 7.0-18.0 [facility] Comment on above: Performed By: #### T 7, TSH, CMP, LIPID #### [facility] [address] [place] [address] Dr. Juliana Brooks Urea nitrogen/Creatinine [Mass ratio] 18.3 mg/mg Normal [facility] Comment on above: Performed By: #### T 7, TSH, CMP, LIPID #### [facility] [address] [place] [address] Dr. Juliana Brooks TSHon 07-08-2022 TSH Qn m[IU]/L Critically low 0.358-3.74 0 [facility] Comment on above: Performed By: #### T 7, TSH, CMP, LIPID #### [facility] [address] [place] [address] Dr. Juliana Brooks MRI LSPINE WO CONon [...] by: IRENE AGUILERA Date: 2021-12-24 16:08 Normal [facility] XR LSPINE MIN 4 VIEWSon 11-16 XR [...] by: ALE GERBER Date: 2021-11-26 18:41 Normal [facility] Ambulatory Visit Summaryon 0 07-24-2021 Ambulatory Visit [...] Reducible right inguinal hernia Sleep apnea Normal [facility] General Surgery Office/Clini c Noteon 07-24-2021 General [...] inactivated - Not Given Patient Refuses Normal [facility] Comment on above: Result Comment: Elec tronically [...] With: Jerry QUIÑONEZ MD Where: General Surgery Nill/Jens Weldon Normal [facility] General Surgery Office/Clini c Noteon 07-10-2021 General [...] inactivated - Not Given Patient Refuses Normal [facility] Comment on above: Result Comment: Elec tronically Signed By: KHANG BARTH, Jerry Warren\Date and Time Signed: 07/10/21 14:23 EDT Operative Reporton Operative Report [id number]#1.00CD:127 Normal [facility] Lab Reportson 06-29-2021 Lab Reports [id number]#1.00CD:127 Normal [facility] ECG 12-Leadon 06-24-2021 ECG 12-Lead [id number]#1.00CD:127 [facility] Pre-Certification Formon Pre-Certification Form [id number]#1.00CD:127 [facility] RAD - CT Reporton 06-14-2021 RAD - CT Report [id number]#1.00CD:127 [facility] Consent for Procedure/Surger yon 06-11-2021 Consent for Procedure/Surgery [id number]#1.00CD:127 [facility] Ambulatory Visit Summaryon 0 06-10-2021 Ambulatory Visit Summary ANA PALMER :1970 Visit Date:06/10/2021 Ambulatory Visit Instructions Your [...] Radiculopathy of cervical spine Sleep apnea Normal [facility] Physician Referralon 022 Physician Referral [id number]#1.00CD:127 Normal [facility] FLUORO FOR SURGICAL PROCEDUR ESOrdered By: Mejia Griffin on 11-18-2020 Jamie, Chpo Incoming R adiant Results From [employer] - 11/18/2020 2:23 PM EDT EXAMINATION: FLUORO FOR SURGICAL PROCEDURES CLINICAL HISTORY: R52 Pain ICD10 COMPARISONS: None available. FINDINGS: Fluoroscopic assistance was provided during ACDF, C5-6 and C6-7 The total radiation time is 31.9 seconds, radiation dose is 3.62mGy. IMPRESSION: Intraprocedural fluoroscopic support has been provided. Please refer to the procedure report. [facility] Work Phone: [facility] [employer] Work Phone: Surgical Specimenon 11-19-19 Surgical Specimen [facility] [address] [place], [place] [id number] FINAL SURGICAL PATHOLOGY REPORT Patient Name: ANA PALMER Accession No: [id number] Age Sex: 1970 Location: DIS [id number] Account No: [id number] Collected: 11/18/2020 Med Rec No: [id number] Received: 11/18/2020 Attend Phys: MEJIA GRIFFIN Completed: [...] in three cassettes following decalcification. LUAN CPT: 49119 X1 22195 X1 JERAMIE ERVIN M.D. 11/20/2020 Electronically signed out by Page 1 of 1 Invalid Interpretation Code [facility] Comment on above: Performed By: #### S UR #### [facility] [address] [place] [id number] COVID-19, PCRon 11-08-2020 SARS-CoV-2 (COVID-19) RNA AISHA+probe Ql (Unsp spec) Not detected Normal Not Detect [facility] Comment on above: Result Comment: Test ing was performed using [employer] SARS-CoV-2 Assay. Negative results do not preclude [...] oropharyngeal and mid-turbinate specimens. Patient Fact Sheet: https://www.fda.gov/media/270284/download Provider Fact Sheet: https://www.fda.gov/media/079538/download FDA Specimen Types Link: https://www.fda.gov/medical-devices/ pdynxyluizj-icixb-50-ngl-xpfduee-jpnoehx/sgip-nlfmgms-piob-cov-2 Methodology: RT-PCR Performed By: #### C OVB #### [facility] [address] [place] [address] CBC With Platelet No Differe ntialon 11-07-2020 Erythrocyte distribution width (RBC) [Ratio] 15.8 % Critically high 11.5-14.5 [facility] Comment on above: Performed By: #### C BCND #### [facility] [address] [place] [address] Hematocrit (Bld) [Volume fraction] 37.5 % Normal 37.0-47.0 [facility] Comment on above: Performed By: #### C BCND #### [facility] [address] [place] [address] Hemoglobin (Bld) [Mass/Vol] 12.1 g/dL Normal 12.0-16.0 [facility] Comment on above: Performed By: #### C BCND #### [facility] [address] [place] [address] MCH (RBC) [Entitic mass] 26.2 pg Low 27.0-31.3 [facility] Comment on above: Performed By: #### C BCND #### [facility] [address] [place] [address] MCHC 32.3 % Low 33.0-37.0 [facility] Comment on above: Performed By: #### C BCND #### [facility] [address] [place] [address] MCV (RBC) [Entitic vol] 81.3 fL Low 82.0-100.0 [facility] Comment on above: Performed By: #### C BCND #### [facility] [address] [place] [address] Platelets (Bld) [#/Vol] 301 10*3/uL Normal 130-400 [facility] Comment on above: Performed By: #### C BCND #### [facility] [address] [place] [address] RBC (Bld) [#/Vol] 4.61 10*6/uL Normal 4.20-5.40 [facility] Comment on above: Performed By: #### C BCND #### [facility] [address] [place] [address] WBC (Bld) [#/Vol] 3.7 10*3/uL Low 4.8-10.8 [facility] Comment on above: Performed By: #### C BCND #### [facility] [address] [place] [address] Partial Thromboplastin Timeo n 11-07-2020 aPTT Coag (Bld) [Time] 28.0 s Normal 24.4-36.8 [facility] Comment on above: Result Comment: Effe ctive 02/20/2020: Heparin Therapeutic Range: 64.0 ? 98.0 seconds. Performed By: #### P TT #### [facility] [address] [place] [address] Prothrombin Timeon INR Coag (PPP) [Relative time] 1.0 {INR} Normal [facility] Comment on above: Performed By: #### P T #### [facility] [address] [place] [address] PT Coag (PPP) [Time] 13.3 s Normal 12.3-14.9 [facility] Comment on above: Performed By: #### P T #### [facility] [address] [place] [address] Type and Screen Capture 3 sc rn cellon 11-07-2020 Type and Screen Capture 3 scrn cell PATIENT: ESTELA PEREZ LOC: [facility] BILL# : [id number] : 1970 SEX: F ORDERED BY: TIM CASTILLO ORDERED : 11/07/2020 13:32 COLLECTED: 11/07/2020 13:32 ORDER : [id number] RECEIVED : 11/07/2020 19:33 TEST NAME RESULT UNITS RANGES ABN FL ST ABORH Capture O POS F Antibody 3 Cell Scrn Captu NEG F Normal [facility] Comment on above: Performed By: #### T S3C #### [facility] [address] [place] [address] MRI CERVICAL SPINE WO CONTRA STOrdered [...] gland, may consider dedicated thyroid ultrasound imaging. [facility] [employer] Work Phone: EXAMINATION: MRI CER VICAL SPINE [...] hypertrophy with mild left neural foraminal narrowing. [employer] Work Phone: Jamie, Chpo Incoming R adiant Results From [employer] - 09/10/2020 12:02 PM EDT EXAMINATION: MRI [...] gland, may consider dedicated thyroid ultrasound imaging. [employer] Phone: [facility] Work Phone: MRI CERVICAL SPINE WO CONTRA STon 09-09-2020 MRI CERVICAL SPINE WO CONTRAST EXAMINATION: [...] Leandro Spaulding MD 09/10/20 Final result Normal [facility] COVID-19, NAAon 09-04-2020 SARS-CoV-2 (COVID-19) RNA AISHA+probe Ql (Unsp spec) Not detected Normal Not Detect [facility] Comment on above: Result Comment: This nucleic acid amplification test was developed and its performance characteristics determined by [employer]. Nucleic acid amplification tests include RT-PCR and [...] detected) result in this assay. Performed at: [address] [id number] Acute Care Physician: Lane Rivera PhD, Phone: [phone] Performed By: #### I RCOV #### [facility] [address] [place] [address] COVID-19, NAAon 09-02-2020 Source Swab Anterior nares Normal [facility] Comment on above: Performed By: #### I RCOV #### [facility] [address] [place] [address] Vital Signs Date Time Vital Sign Value Performing Clinician Facility 02-16-2023 15:45-0400 Body height 162.56 cm [employer] Other [facility] Other 02-16-2023 15:45-0400 Body mass index (BMI) [Ratio] 25.4 kg/m2 [employer] Other [facility] Other 02-16-2023 15:45-0400 Body weight 67.13 kg [employer] Other [facility] Other 01-31-2023 18:30-0400 Diastolic blood pressure 78 mm[Hg] MD Gina Javier Work Phone: [facility] 01-31-2023 18:30-0400 Heart rate 98 /min MD Gina Javier Work Phone: [facility] 01-31-2023 18:30-0400 Respiratory rate 16 /min MD Gina Javier Work Phone: [facility] 01-31-2023 18:30-0400 SaO2% (BldA) [Mass fraction] 96 % MD Gina Javier Work Phone: [facility] 01-31-2023 18:30-0400 Systolic blood pressure 116 mm[Hg] MD Gina Javier Work Phone: [facility] 01-31-2023 16:45-0400 Body temperature 98 [degF] MD Gina Javier Work Phone: [facility] 01-31-2023 16:15-0400 Inhaled oxygen flow rate 10 L/min MD Gina Javier Work Phone: [facility] 01-31-2023 12:49-0400 Body height 160.02 cm MD Gina Javier Work Phone: [facility] 01-31-2023 12:49-0400 Body mass index (BMI) [Ratio] 26.5 kg/m2 MD Gina Javier Work Phone: [facility] 01-31-2023 12:49-0400 Body weight 68 kg MD Gina Javier Work Phone: [facility] 01-27-2023 15:30-0400 Body height 162.56 cm Edison Jeremías II Other [facility] Other 01-27-2023 15:30-0400 Body mass index (BMI) [Ratio] 25.44 kg/m2 [facility] Other [facility] Other 01-27-2023 15:30-0400 Body weight 67.22 kg [facility] Other [facility] Other 07-05-2022 12:15-0400 Body height 162.56 cm Sawyer Greer Other [facility] Other 01-26-2022 10:40-0400 Body height 162.56 cm Santiago Cano Other [facility] Other 01-26-2022 10:40-0400 Body mass index (BMI) [Ratio] 36.9 kg/m2 Santiago Cano Other [facility] Other 01-26-2022 10:40-0400 Body weight 97.52 kg Santiago Cano Other [facility] Other 07-24-2021 13:31-0400 Body temperature 97.88 [degF] Jerry QUIÑONEZ General Surgery [place] 07-10-2021 14:00-0400 Body temperature 97.34 [degF] Jerry QUIÑONEZ General Surgery [place] 11-19-2020 08:27-0400 Body temperature 98.1 [degF] Mejia Griffin MD Work Phone: [employer] Work Phone: 11-19-2020 08:27-0400 Diastolic blood pressure 78 mm[Hg] Mejia Griffin MD Work Phone: [employer] Work Phone: 11-19-2020 08:27-0400 Heart rate 109 /min Mejia Griffin MD Work Phone: [employer] Work Phone: 11-19-2020 08:27-0400 SaO2% (BldA) [Mass fraction] 98 % Mejia Griffin MD Work Phone: [employer] Work Phone: 11-19-2020 08:27-0400 Systolic blood pressure 118 mm[Hg] Mejia Griffin MD Work Phone: [employer] Work Phone: 11-19-2020 04:29-0400 Respiratory rate 18 /min Mejia Griffin MD Work Phone: [employer] Work Phone: 11-18-2020 08:30-0400 Body height 162.6 cm Mejia Griffin MD Work Phone: [employer] Work Phone: 11-18-2020 08:30-0400 Body mass index (BMI) [Ratio] 34.84 kg/m2 Mejia Griffin MD Work Phone: [employer] Work Phone: 11-18-2020 08:30-0400 Body weight 92.08 kg Mejia Griffin MD Work Phone: [employer] Phone: 09-09-2020 14:57-0400 Diastolic blood pressure 75 mm[Hg] [employer] [facility] [employer] Phone: 09-09-2020 14:57-0400 Heart rate 93 /min [place] [facility] [employer] Work Phone: 09-09-2020 14:57-0400 Respiratory rate 16 /min [place] [facility] [employer] Phone: 09-09-2020 14:57-0400 Systolic blood pressure 169 mm[Hg] [place] [facility] [employer] Phone: 09-09-2020 12:41-0400 Body height 162.6 cm [facility] Phone: 09-09-2020 12:41-0400 Body mass index (BMI) [Ratio] 34.67 kg/m2 [facility] Phone: 09-09-2020 12:41-0400 Body weight 91.63 kg [place] [facility] [employer] Phone: 09-09-2020 12:41-0400 SaO2% (BldA) [Mass fraction] 99 % [facility] Phone: Encounters Encounter Date Encounter Type Care Provider Facility Start: 04-20-2023 Office outpatient vi sit 15 minutes Edison Veronica II [facility] Start: 04-20-2023 End: 04-20-2023 ambulatory Gina Javier Facility:[facility] Start: 04-20-2023 End: 04-20-2023 ambulatory MD Gina Javier Work Phone: [facility] Work Phone: Start: 04-20-2023 End: 04-20-2023 Patient encounter procedure MD Gina Javier Work Phone: [facility] Start: 03-17-2023 End: 03-17-2023 ambulatory Gina Javier Facility:[facility] Start: 03-17-2023 End: 03-17-2023 ambulatory MD Gina Javier Work Phone: [facility] Work Phone: Start: 03-17-2023 End: 03-17-2023 Patient encounter procedure MD Gina Javier Work Phone: [facility] Start: 03-03-2023 (Post-Op) Post-Op [facility] Start: 03-03-2023 End: 03-03-2023 ambulatory [facility] Other [facility] Other Start: 02-16-2023 (Post-Op) Post-Op Edison Jeremías II [facility] Start: 02-16-2023 End: 02-16-2023 ambulatory [facility] Other [facility] Other Start: 02-10-2023 (Post-Op) Post-Op [facility] Start: 02-10-2023 End: 02-10-2023 ambulatory Edison Jeremías II Other [facility] Other Start: 02-09-2023 End: 02-09-2023 ambulatory Edison Jeremías II Other [facility] Other Start: 02-09-2023 Telephone encounter [facility] Start: 01-31-2023 End: 01-31-2023 ambulatory Edison M Jeremías II Facility:[facility] Start: 01-31-2023 End: 01-31-2023 Admission to same day surgery center MD Gina Javier Work Phone: [facility] [place] Start: 01-31-2023 End: 01-31-2023 ambulatory MD Gina Javier Work Phone: [facility] Work Phone: Start: 01-27-2023 End: 01-27-2023 ambulatory Edison Veronica II Facility:[facility] Start: 01-27-2023 End: 01-27-2023 Discharged Recurring MD Gina Javier Work Phone: [facility] [place] Start: 01-27-2023 End: 01-27-2023 ambulatory MD Gina Javier Work Phone: [facility] Other Start: 01-27-2023 Patient encounter procedure Edison [facility] II [facility] Start: 01-21-2023 (Prolonged) Prolonge d Services [facility] Start: 01-21-2023 End: 01-21-2023 ambulatory Edison Past[facility] II Other [facility] Other Start: 01-20-2023 End: 01-20-2023 ambulatory Edison [facility] II Facility:[facility] Start: 01-20-2023 End: 01-20-2023 ambulatory MD Gina Javier Work Phone: [facility] Work Phone: Start: 01-20-2023 End: 01-20-2023 Patient encounter procedure MD Gina Javier Work Phone: [facility]-Pre-Surgical Testing Work Phone: Start: 12-24-2022 End: 12-24-2022 ambulatory Gina Javier Facility:[facility] Start: 12-24-2022 End: 12-24-2022 ambulatory MD Gina Javier Work Phone: [facility] Work Phone: Start: 12-24-2022 End: 12-24-2022 Patient encounter procedure MD iGna Javier Work Phone: [facility] Start: 12-24-2022 End: 12-24-2022 ambulatory MD Gina Javier Work Phone: [facility] Work Phone: Start: 12-24-2022 End: 12-24-2022 Patient encounter procedure MD Gina Javier Work Phone: [facility] Start: 12-16-2022 End: 12-16-2022 ambulatory Sawyer Greer Other [facility] Other Start: 12-16-2022 Office outpatient vi sit 25 minutes Sawyer Greer [facility] [place] Start: 12-16-2022 Telephone encounter Sawyer Greer [facility] [place] Start: 09-09-2022 End: 09-10-[address] GINA JAVIER . Facility: Start: 09-03-2022 End: 09-03-2022 ambulatory Sawyer Greer Facility:[facility] Start: 08-24-2022 End: 08-24-2022 Patient encounter procedure MD Gina Javier Work Phone: [facility] Start: 08-24-2022 End: 08-24-2022 ambulatory MD Gina Javier Work Phone: [facility] Work Phone: Start: 08-24-2022 Office outpatient vi sit 25 minutes Sawyer Greer [facility] Start: 08-16-2022 (Procedure) Short Sawyer Greer [facility] Start: 08-16-2022 End: 08-16-2022 ambulatory Sawyer Greer Other [facility] Other Start: 08-04-2022 End: 08-04-2022 ambulatory Sawyer Greer Other [facility] Other Start: 08-04-2022 Office outpatient vi sit 25 minutes Sawyer Greer [facility] Start: 07-11-2022 Encounter for genera l adult medical examination without abnormal findings DR GINA JAVIER . [facility] Start: 07-08-2022 End: 07-09-[address] GINA JAVIER . Facility:[facility]1 Start: 07-08-2022 End: 07-09-2022 Encounter for general adult medical examination without abnormal findings DR GINA JAVIER . Facility:[facility] Start: 07-05-2022 End: 07-05-2022 ambulatory Sawyer Greer Other [facility] Other Start: 07-05-2022 Office outpatient vi sit 25 minutes Sawyer Greer [facility] Start: 04-19-[address] GINA JAVIER . Facili ty:[facility]1 Start: 02-23-2022 End: 02-23-2022 ambulatory Sawyer Greer Other [facility] Other Start: 02-23-2022 Office outpatient vi sit 15 minutes Sawyer Greer [facility] Start: 02-15-2022 (Procedure) Short Sawyer Greer [facility] Start: 02-15-2022 End: 02-15-2022 ambulatory Sawyer Greer Other [facility] Other Start: 02-01-2022 End: 02-01-2022 ambulatory Sawyer Greer Other [facility] Other Start: 02-01-2022 Office outpatient ne w 45 minutes Sawyer Greer [facility] Start: 02-01-2022 Telephone encounter Sawyer Greer [facility] [employer] Start: 01-26-2022 End: 01-26-2022 ambulatory Santiago Cano Other [facility] Other Start: 01-26-2022 Office outpatient ne w 45 minutes Santiago Cano [facility] Start: 12-24-2021 End: 12-25-[address] GINA JAVIER . Facility:[facility] Start: 11-26-2021 End: 11-27-[address] GINA JAVIER . Facility:[facility] Start: 07-24-2021 End: 07-24-2021 Patient encounter procedure Jerry CASASKrysta General [facility] Start: 07-10-2021 End: 07-10-2021 Patient encounter procedure Jerry Randolph KHANG General Surgery [facility] Start: 11-18-2020 End: 11-19-2020 Evaluation and management of inpatient [facility] Start: 11-18-2020 End: 11-21-2020 ambulatory MEJIA GRIFFIN [facility] Start: 11-18-2020 End: 11-19-2020 Evaluation and management of inpatient Mejia Griffin MD Work Phone: [address] Neuro Comment on above: Post-op pain (Primar y Dx); Pain; Muscle spasm Start: 11-18-2020 End: 11-20-2020 Subsequent hospital visit by physician Mejia Griffin MD Work Phone: [facility] Radiology Comment on above: Pain Start: 09-09-2020 End: 09-12-2020 ambulatory [facility] Start: 09-09-2020 End: 09-11-2020 Subsequent hospital visit by physician Andres Mri Room 2 [facility] MRI Comment on above: Cervical spondylosis with [...] Surgery: [id number] Result Comment: PERF ORMED BY: [facility] [place] [address] PATHOLOGIST GRINDER AND PLATER ERIC ABDI M.D. Start: 12-24-2022 Methicillin resistan [...] Date Care Activity Detail Author Start: 01-31-2023 [facility] Start: 01-31-2023 [facility] Start: 01-31-2023 Physical therapy procedure [facility] Start: 01-20-2023 [facility] Start: 12-24-2022 MRSA Culture MRSA Culture [facility] Start: 12-17-2020 Influenza vaccination [facility] Work Phone: Start: 12-05-2020 End: 12-05-2020 Patient encounter procedure 12/05/2020 Office Visit Neurosurgery Mejia Griffin MD [address] [facility] [address] [place], [place] [id number] [facility] Start: 09-19-2020 End: 09-19-2020 Patient encounter procedure 09/19/2020 Office Visit Neurosurgery Mejia Griffin MD [address] [facility] [address] [place], [place] [id number] [facility] Start: 12-13-2019 Screening for malign ant neoplasm of breast Breast cancer screen [employer] Phone: Start: 12-13-2019 Screening for malign ant neoplasm of colon Colon cancer screen colonoscopy [facility] [employer] Phone: Start: 12-13-2019 Shingles Vaccine (1 of 2) Shingles Vaccine (1 of 2) [facility] [employer] Phone: Start: 2014 Screening for malign ant neoplasm of colon Colon cancer screen colonoscopy [employer] Phone: Start: 2009 Diabetes screen Diabetes screen [employer] Phone: Start: 1990 Screening for malign ant neoplasm of cervix Cervical cancer screen [employer] Phone: Start: 1988 DTaP/Tdap/Td vaccine (1 - Tdap) DTaP/Tdap/Td vaccine (1 - Tdap) [facility] [employer] Phone: Start: 1984 HIV screening HIV screen [facility] Work Phone: Start: 1981 COVID-19 Vaccine (1) COVID-19 Vaccin e (1) [facility] [employer] Phone: Start: 12-13-1979 Lipid panel Lipid screen [employer] Phone: Start: 1969 Creatinine measurement Creatinine mo nitoring [employer] Phone: Start: 1969 Hepatitis C screening Hepatitis C sc reen [employer] Phone: Start: 1969 Potassium monitoring Potassium monit oring [employer] Phone: Continuous pulse oximetry Pulse oximetry, continuous Respiratory Care Routine Every 4hr until discontinued starting 11/18/2020 [employer] Phone: Comment on above: Every 4hr until disc ontinued starting 11/18/2020 Cotinine [Mass/volum e] in Serum or Plasma [facility] End: 11-18-2020 Fluoroscopy during operation FLUORO FOR SURGICAL PROCEDURES Imaging Routine Pain Once for 1 Occurrences starting 11/18/2020 until 11/18/2020 [employer] Phone: Comment on above: Once for 1 Occurrenc es starting 11/18/2020 until 11/18/2020 Fluoroscopy during operation FLUORO FOR SURGICAL PROCEDURES Imaging Routine Pain 11/18/2020 1:30 PM EDT [employer] Phone: Glucose measurement estimated from glycated hemoglobin [facility] Methicillin resistan t Staphylococcus aureus [Presence] in Unspecified specimen by Organism specific culture [facility] Nicotine [Mass/volum e] in Serum or Plasma [facility] Oxygen therapy [Mini [facility] Data Set] [employer] Phone: Comment on above: Daily until disconti nued starting 09/09/2020 Daily until disconti nued starting 11/18/2020 Phase I & II - meter ed glucose Phase I & II - metered glucose Point of Care Testing Routine As Needed until discontinued starting 09/09/2020 [employer] Phone: Comment on above: As Needed until disc ontinued starting 09/09/2020 Spirometry panel Incentive joaquín metry Respiratory Care Routine Every 2hr while awake until discontinued starting 09/09/2020 [employer] Phone: Comment on above: Every 2hr while awak e until discontinued starting 09/09/2020 [facility] Work Phone: Comment on above: Release Upon Orderin g for 1 Occurrences starting 11/18/2020 End: 11-18-2020 Surgical Pathology Surgical Pathology Lab Routine Once for 1 Occurrences starting 11/18/2020 until 11/18/2020 [facility] Work Phone: Comment on above: Once for 1 Occurrenc es starting 11/18/2020 until 11/18/2020 [facility] Immunizations Immunization Date Immunization Notes Care Provider Fa cility NEGATED: Highlighted row has not occurred!06-10-2021 influenza virus vaccine, unspecified formulation Jerry QUIÑONEZ General Surgery [place] Payers Date Payer Category Payer Self-pay [id number] 2020 Private Health Insurance [id number] 2020 Private Health Insurance [id number]. [id number] 1969 Unknown [id number] 2.16.840.1.234544.3.579.2.182 1969 Unknown [id number] 2.16.840.1.036714.3.579.2.182 1969 Unknown [id number] 2.16.840.1.955405.3.579.2.182 1969 Unknown [id number] 2.16.840.1.800085.3.579.2.593 1969 Unknown [id number] 2.16.840.1.137740.3.579.2.593 1969 Unknown [id number] 2.16.840.1.405559.3.579.2.593 1969 Unknown [id number] 2.16.840.1.799833.3.579.2.593 1969 Unknown [id number] 2.16.840.1.137075.3.579.2.593 1960 [place] [id number] 2.16.840.1.226387.19 1960 Self-pay [id number] [place] [id number] 2.16.840.1.280903.19 Private Health Insurance [employer] [id number] Unknown [id number] 2.16.840.1.333085.3.579.2.531 Unknown [id number] 2.16.840.1.655808.3.579.2.531 Unknown [id number] 2.16.840.1.904741.3.579.2.531 Unknown [id number] 2.16.840.1.352353.3.579.2.531 Unknown [id number] 2.16.840.1.256138.3.579.2.531 Unknown [id number] 2.16.840.1.854964.3.579.2.531 Unknown [id number] 2.16.840.1.386944.3.579.2.531 Unknown [id number] 2.16.840.1.633041.3.579.2.531 Social History Date Type Detail Facility Start: 09-02-2020 End: 01-31-2023 Tobacco smoking status [facility] Never smoker [employer] Phone: Start: 09-02-2020 End: 11-20-2020 Tobacco use and exposure Never used [employer] Start: 1970 Sex Assigned At Not on file [employer] Phone: Start: 11-07-2020 History 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 5 [employer] Phone: Start: 11-07-2020 History SDOH Food Worry 1 [employer] Phone: Start: 1970 Sex Assigned At Female M [employer] Work Phone: Exposure to SARS-CoV -2 (event) Not sure [employer] Tobacco smoking status Never Gener al Surgery [facility] Sex Assigned At Female Genera l Surgery [facility] Medical Equipment Procedure Code Equipment Code Equipment Original Text Equipment Identifier Dates Arthroplasty, hip, total, anterior approach Acetabular shell [id number] FDA Start: 01-31-2023 Arthroplasty, hip, total, anterior approach Orthopaedic bone screw, non-bioabsorbable, sterile ()[id number] FDA Start: 01-31-2023 Arthroplasty, hip, total, anterior approach Orthopaedic bone screw, non-bioabsorbable, sterile ()[id number] FDA Start: 01-31-2023 Arthroplasty, hip, total, anterior approach Ceramic femoral head prosthesis ()[id number] FDA Start: 01-31-2023 Arthroplasty, hip, total, anterior approach Coated hip femur prosthesis, modular ()[id number] FDA Start: 01-31-2023 Arthroplasty, hip, total, anterior approach Non-constrained polyethylene acetabular liner ()[id number] FDA Start: 01-31-2023 Cage Spnl W11xh8 xl14mm Lum Lord Intbdy Fus Triad Cc - [id number] Start: 11-18-2020 Graft Spnl W11xh 3fv72mc Corticocancellous Lord Triad - [id number] Start: 11-18-2020 Screw Spnl L7mm Dia2.6mm Lum Lat Mass Leverage Lfs [id number] Start: 11-18-2020 Plate Spnl L42mm Ant Cerv 2 Lev Translational [place] Acp [id number] Start: 11-18-2020 Screw Spnl L13mm Dia4mm Ant Cerv [facility] Melanie Ang Compr [place] Acp [id number] Start: 11-18-2020 Screw Spnl L5mm [...] Z96.642) Apr, Other [facility] [place] 01[place]2023 Overall she is doing great. [...] to call with any questions or concerns. [facility] Other 11-16-2023 Evaluation note* Encounter Date Diagnosis [...] weeks with x-rays of the left hip. [facility] Other 11-01-2023 Evaluation note* Encounter Date Diagnosis Assessment Notes Treatment Notes Treatment Clinical Notes Feb, S/P total left hip arthroplasty (ICD-10 - Z96.642) Feb, Aftercare following joint replacement surgery (ICD-10 - Z47.1) Feb, Presence of left artificial hip joint (ICD-10 - Z96.642) Feb, Other [facility] at [facility] on 01/31/2023 Overall patient is doing [...] off narcotic pain medication. They can take mctj-swb-knzirys anti-inflammatories as needed for assistance with swelling [...] examination and x-rays of the left hip. [facility] Other 10-26-2023 Evaluation note* Encounter Date Diagnosis Assessment Notes Treatment Notes Treatment Clinical Notes Jan, Aftercare following joint replacement surgery (ICD-10 - Z47.1) Jan, Presence of left artificial hip joint (ICD-10 - Z96.642) Jan, S/P total left hip arthroplasty (ICD-10 - Z96.642) Jan, Other C L JILLIAN 01/31/2023 The Aquacel was removed [...] to help calm down this allergic reaction. 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 Left JILLIAN Home Medications - DVT prophylaxis: Aspirin - NSAID: Celebrex - Disposition: Same-day discharge Joints Meeting Checklist - Pharmacy: [facility] to bed - Approach/Technique: anterior, [place] bed - Implants: Avenir Complete/G7; - Anesthesia: general vs spinal - Blocks: Fascia iliaca - Preop Antibiotics: Ancef - TXA: yes-systemic - Positioning/OR Bed: supine on [place] bed - Intraop X-ray: yes - Fraser: [...] above surgery. OARRS report generated and reviewed. [facility] Other 10-06-2023 Evaluation note* Encounter Date Diagnosis [...] patient could proceed with surgery safely. The manager audit was vital for surgery timing and scheduling [...] plans. Prolonged services time spent: 32 minutes [facility] Other 08-31-2023 Evaluation note* Encounter Date Diagnosis [...] note writ ten by Nino Reese MA, Torpedo Worker. Edited and approved by Dr. Sawyer Greer MD. [facility] Other 08-31-2023 Evaluation note* Encounter Date Diagnosis Assessment Notes Treatment Notes Treatment Clinical Notes Nov, Osteoarthritis of left hip (ICD-10 - M16.12) [facility] Other 05-09-2023 Evaluation note* Encounter Date Diagnosis [...] note writ ten by Jcarlos Jovel LPN, Torpedo Worker. Edited and approved by Dr. Sawyer Greer MD. [facility] Other 04-19-2023 Evaluation note* Encounter Date Diagnosis [...] note writ ten by Jcarlos Jovel LPN, Torpedo Worker. Edited and approved by Dr. Sawyer Greer MD. [facility] Other 03-20-2023 Evaluation note* Encounter Date Diagnosis [...] note writ ten by Jcarlos Jovel LPN, Torpedo Worker. Edited and approved by Dr. Sawyer Greer MD. [employer] Other 11-08-2022 Evaluation note* Encounter Date Diagnosis [...] note writ ten by Nino Reese MA, Torpedo Worker. Edited and approved by Dr. Sawyer Greer MD. [facility] Other 10-17-2022 Evaluation note* Encounter Date Diagnosis [...] note writ ten by Jcarlos Jovel LPN, Torpedo Worker. Edited and approved by Dr. Sawyer Greer [...] negative findings were considered in medical decision-making. [facility] Other 10-11-2022 Evaluation note* Encounter Date Diagnosis [...] be able to perform normal work duties. [facility] Other 02-23-2022 NoteChief Complaint consultation for right [...] 06/10/2021 Family History ALS (more content not included)...[facility] Result Comment: Electronically Signed By: KHANG BARTH, Jerry Warren\Date and Time Signed: 06/10/21 16:23 [id number] Hospital Discharge instructions* Instructions* Nemo Calixto APRN - CNP - 11/19/2020 You may shower on Tuesday [...] drive until follow up documented in this [facility] Work Phone: 1(835) 129-370908-04-2021 History of Present illness Narrative* Krysten Villegas OTR/Krysta - 11/19/2020 10:42 AM EDT [facility]RES OCCUPATIONAL THERAPY EVALUATION - ACUTE NAME: Ana Palmer : 1970 (49 y.o.) CODE STATUS: Full Code Room: N224/N224-01 Date of Service: 11/19/2020 Patient Diagnosis(es): Cervical [...] Ambulation Assistance: Independent Transfer Assistance: Independent Active Bin Packer: Yes 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 Please refer to the procedure report.[employer] Phone: 1(526) 328-280808-03-2021 NoteEXAMINATION: FLUORO FOR SURGICAL PROCEDURES CLINICAL HISTORY: R52 Pain ICD10 COMPARISONS: None available. FINDINGS: Fluoroscopic assistance was provided during ACDF, C5-6 and C6-7 The total radiationtime is 31.9 seconds, radiation dose is 3.62mGy.[employer] Phone: 1(695) 778-226408-03-2021 NoteEXAMINATION: FLUORO FOR SURGICAL PROCEDURES CLINICAL HISTORY: R52 Pain ICD10 COMPARISONS: None available. FINDINGS: Fluoroscopic assistance was provided during ACDF, C5-6 and C6-7 The total radiation time is 31.9 seconds, radiation dose is 3.62mGy. IMPRESSION: Intraprocedural fluoroscopic support has been provided. Please refer to the procedure report. Interpreted by: Leandro Spaulding MD Signed by: Leandro Spaulding MD 11/18/20 Final resultNorth [facility] CenterEvaluation + Plan note Future Appointments Appointment Date:07/24/2021 01:20:00 PM Scheduled Provider:Jerry QUIÑONEZ MD Location:[facility] Appointment Type: Post Op 15 General Surgery [facility] Evaluation note* Diagnosis Cervical spondylosis with myelopathy Cervical stenosis of spine Spinal stenosis in cervical region Cervical radiculopathy Brachial neuritis or radiculitis nos documented in this encounter [employer] Phone: evalvnemre note* Diagnosis Post-op pain- Primary Other acute postoperative pain Pain Generalized pain Muscle spasm Spasm of muscle Cervical cord compression with myelopathy (HCC) Unspecified disease of spinal cord documented in this encounter [employer] Phone: [email or web address] note* Diagnosis Pain Generalized pain documented in this encounter [employer] Phone: evalhdfhom noteNo InformationN[employer] Other Evaluation noteNo assessment information available [facility] Work Phone: [place] general Narrative - Reported* Type Description Date Medical History Arthritis Medical History high cholesterol Medical History migraine headache Medical History chronic depression Medical History anxiety Surgical History C section Surgical History hernia repair Surgical History hysterectomy Surgical History neck biopsy Hospitalization History see surgical hx [facility] Other Hisubfo general Narrative - Reported* Type Description Date Medical History Arthritis Medical History high cholesterol Medical History migraine headache Medical History chronic depression Medical History anxiety Surgical History C section Surgical History hernia repair Surgical History hysterectomy Surgical History neck biopsy Surgical History LTHA 01/31/2023 Hospitalization History see surgical hx [facility] Other Hospital course Narrative No data available for this section [facility] [place] [facility] Discharge instructions* Attachments The following attachments cannot be sent through Care Everywhere. * Sedation: General Info (Maltese) documented in this encounterMediamind Phone: Hospital Discharge instructions No data available for this section General Surgery [facility] Discharge instructions Additional Instructions Joint Replacement Discharge Instructions Your safety during your recovery process is important to us. Please seek immediate emergency care if you have sudden chest pain or shortness of breath. Additionally, please call our office at [phone] should any of the following occur: wound [...] to walk without your walker and your childcare director until the therapist checks you the following [...] and/or laxatives as directed. You may take tsnk-gga-uvnvbqm Benadryl if itching occurs without a rash or hives. Icing and elevation will help relieve pain as well, do not underestimate the power of ice and elevation. We do recommend that you stop taking narcotic pain medications by 4-6 weeks after surgery and if necessary, continue to use anti-inflammatory medications such as Mobic (meloxicam), Celebrex (celecoxib), or an jizi-mxy-vpmzwks medication (Aleve, Motrin, Ibuprofen, etc). Driving an [...] feel free to call our office at [phone]. You are a priority of ours and we will not be upset with you if you call. We would much rather you call to confirm aspects of your recovery process as opposed to possibly hindering your recovery with inappropriate care. We are committed to providing you with the best care possible. Edison Veronica II, MD Updated 07/02/2022[facility] Work Phone: Reason for Referral Status Reason Specialty Diagnoses / Procedures Referre d By Contact Referred To Contact Closed Radiology Diagnoses Cervical spondylosis with myelopathy Cervical stenosis of spine Cervical radiculopathy Procedures MRI CERVICAL SPINE WO CONTRAST Mejia Griffin MD [address] [place] [address] Status Reason Specialty Diagnoses / Procedures Referre d By Contact Referred To Contact Closed Radiology Diagnoses Pain Procedures Fluoro For Surgical Procedures Mejia Griffin MD [address] [place] [address] Reason *Waiting for appt Evaluate and Treat Sacroiliac and Trochanteric Bursitis L Hip Diagnosis 1 Inflammation of left sacroiliac joint (M46.1) Diagnosis 2 Greater trochanteric bursitis of left hip (M70.62) Referral Organization [facility] Ne urosurgery Referring Provider First Name Santiago Referring Provider Last Name Jerome Referring Provider Specialty Neurologica l Surgery Referred Organization [facility] Referred Provider Sawyer Greer Referred Address [address] [facility] Andry CYRKS,[phone] Referred Provider Specialty Pain Medicin e Referral Priority Routine General Notes Nisa Zelaya 022 10:44:35 AM >Received today and sent P2P Reason severe left hip/ helen in/ thigh pain Diagnosis 1 Osteoarthritis of le ft hip (M16.12) Referral Organization [facility] Pain Managemen t [facility] Referring Provider First Name Sawyer Referring Provider Last Name Zoey Referring Provider Specialty Pain Medici ne Referred Organization [facility] Referred Provider Edison Veronica II Referred Address [address] [facility] [address] Andry CYRKS,[phone] Referred Provider Specialty Orthopedic S urgery Referral [...] CERVICAL SPINE WO CONTRAST Mejia Griffin MD [address] [place] [address] Status Reason Specialty Diagnoses / Procedures Re ferred By Contact Referred To Contact Diagnoses Cervical stenosis (uterine cervix) Cervical radiculopathy Spondylosis Cord compression (HCC) STENOSIS, RADICULOPATHY, SPONDYLOSIS, CORD COMPRESSION Procedures GA SPINAL FUSION,ANT,EA ADNL LEVEL GA LUMB SP FUSN,POST INTERBDY,EA ADDNL GA ARTHRODESIS ANT INTERBODY INC DISCECTOMY, CERVICAL BELOW C2 GA C-LAMINOPLASTY W/GRAFT/PLATE, 2 OR MORE ANTERIOR INSTRUMENTATION 2-3 VERTEBRAL SEGMENTS GA ALLOGRAFT FOR SPINE SURGERY ONLY STRUCTURAL GA ARTHRODESIS ANT INTERBODY INC DISCECTOMY CERVICAL BELOW C2 EA ADDL A.C.D.F (ANTERIOR CERVICAL DISKECTOMY FUSION) C5-6 C6-7 WITH POSTERIOR DECOMPRESSION LAMINOPLASTY SPANNING FROM C3-4-5-6/ 2 HRS/ 1 C-ARM. NUVASIVE/ S.S.E.P, PAT AT [facility] Mejia Griffin MD [address] [place] [address] [facility] INFORMATION SOURCE (unrecogn ized section and content) DATE CREATED AUTHOR 11/09/2020 [facility] DATE CREATED AUTHOR AUTHOR'S ORGANIZ ATION 11/22/2020 [facility] DATE CREATED AUTHOR AUTHOR'S ORGANIZ ATION 08/16/2021 [facility] DATE CREATED AUTHOR AUTHOR'S ORGANIZ ATION 09/24/2022 [facility] DATE CREATED AUTHOR AUTHOR'S ORGANIZ ATION 04/24/2023 [facility] Ordered Prescriptions (unrec ognized section and [...] 2128 (Given - Provider: Ekaterina Stone LPN) 2099 (Due) ceFAZolin (ANCEF) 2000 mg in dextrose 5 % 100 mL IVPB (COMPLETED) 2,000 mg, Intravenous, MOLD MAKER PLASTIC MOLDS TO O.R., 1 dose, On Tue11/18/20 at [...] Infusing) 1048 (Not Given - Provider: Ro Cardona, DEV - Reason: IV Fluid Infusing)2100 (Due) Continuous Medication Order 11/17/2020 11/18/2020 11/19/2020 dextrose 5 % and 0.45 % sodium chloride infusion Intravenous, at 100 mL/hr, CONTINUOUS, Starting on Tue11/18/20 at 1815, Post-op 1759 (New Bag - Provider: Wolf Coppola, DEV) 0407 (New Bag - Provider: Ekaterina Stone LPN) lactated ringers infusion (CANCELED) Intravenous, at 50 mL/hr, CONTINUOUS, Starting on Tue11/18/20 at 0900, Pre-op (day of surgery) 0944 (New Bag - Provider: Gabriela Evangelista RN)1028 (Paused - Provider: Mejia Griffin MD - Comment: Switch to gravity)1029 (New Bag - Provider: Mejia Griffin MD)1113 (Canceled Entry - Provider: Joe Mantilla APRN - [place] - Comment: Switch to gravity)1114 (Canceled Entry - Provider: Joe Mantilla APRN - [employer])1447 (Stopped - Provider: Joe Annalee, HRIS ANALYST - [employer])1544 (New Bag - Provider: Juliane Alonso, DEV) [...] Juliane Alonso, DEV)1636 (Given - Provider: Juliane Alonso, DEV) HYDROmorphone (DILAUDID) injection 0.5 mg 0.5 mg, Intravenous, EVERY 4 HOURS PRN, Pain Moderate (4-6), Starting on Tue11/18/20 at 1747, If oral and IV narcotics ordered, use oral first and only use IV if oral is ineffective or cannot take oral. Do Not give oral and IV within 1 hour of each other unless specifically ordered. 2144 (Given - Provider: Natalee Salcido, RN) 0423 (Given - Provider: Natalee Salcido [...] Ro Cardona, DEV)1459 (Given - Provider: Ro Cardona RN) promethazine (PHENERGAN) tablet 12.5 mg(Linked Group 1) [...] BE BASED ON THE PRIMARY CLINICAL RECORDS. [facility] [employer] [facility]. provides no warranty or guarantee of the accuracy or completeness of information in this document.
== END 2023-07-15 08:42 | disposition home or self-care (01) ==
LOC: EC 08:41
PROVIDERS: PCP Family Medicine; Visit Provider Orthopaedic Surgery Orthopaedic Surgery of the Spine
DX: M54.2 Cervicalgia (principal); Z98.890 Other specified postprocedural states
CPT/HCPCS: 72052

== ENCOUNTER 2023-10-29 13:56 | Outpatient (OUT) | payer BC, SELFPAY ==
--- NOTE | 2023-10-29 | US_ITS ---
The [address] [address] Patient Name: ANA PALMER MRN: [id number] date: 1970 Sex: F Assigned Patient Location: US Current Patient Location: Accession/Order Number: [id number] Exam Date: 10/29/2023 14:02 Report Date: 10/31/2023 07:16 At the request of: GINA GARZA Procedure: US soft tissue head and neck EXAM: US soft tissue head and neck HISTORY: NECK MASS R22.1 COMPARISON: None. TECHNIQUE: Grayscale and color ultrasound FINDINGS: Ultrasound the region of the patient's palpable abnormality demonstrates a normal size normal morphology lymph nodes measuring 6.8 x 4.2 x 8.8 mm and 8.0 x 3.8 x 5.7 mm. These lesions have hyperechogenic hypervascular hilum with thin hypoechogenic cortices US/US soft tissue head and neck IMPRESSION: 2 normal size normal morphology lymph nodes corresponding to the patient's palpable abnormality Electronically authenticated by: ALE GERBER Date: 10/31/2023 07:16
== END 2023-10-29 13:57 | disposition home or self-care (01) ==
LOC: US 13:57
PROVIDERS: PCP Family Medicine; Visit Provider Family Medicine
DX: R22.1 Localized swelling, mass and lump, neck (principal)
CPT/HCPCS: 76536

== ENCOUNTER 2024-03-13 19:50 | Outpatient (REF) | payer BC, SELFPAY ==
--- OUTSIDE RECORDS SUMMARY | 2024-03-13 19:54 | XMS_ITS | CCD ---
Author Organization [facility] Care Team Providers Care Press Worker Helper Name Role Phone Gina Javier MD Primary Care Provider [phone] GINA JAVIER Primary Care Unavailable GINA JAVIER Referring Unavailable ELIAS, MEJIA H. Admitting Unavailable ELIAS, MEJIA H. Attending Unavailable ELIAS, MEJIA H. Attending Unavailable ELIAS, MEJIA H. Referring Unavailable GINA JAVIER Primary Care Unavailable GINA JAVIER Primary Care Unavailable ELIAS, MEJIA H. Referring Unavailable Gina Javier Primary Care Physician Santiago Cano Unavailable Sawyer Greer Unavailable MD Gina Javier Primary Care Provider [phone] MD Sawyer Greer Attending Provider GREG .DR FUENTES Consulting Unavailable HOY ., [...] Unavailable HOY ., DR FUENTES Attending Unavailable DR ALE GERBER V Consulting Unavailable HOY ., DR FUENTES Consulting Unavailable HOY ., DR FUENTES Primary Care Unavailable HOY ., DR FUENTES Admitting Unavailable HOY ., DR FUENTES Attending Unavailable BUZZ, DR ALE Sheppard Consulting Unavailable HOY ., DR FUENETS Consulting Unavailable HOY ., DR FUENTES Primary Care Unavailable HOY ., DR FUENTES Admitting Unavailable GREG ., DR FUENTES Attending Unavailable MD Gina Javier Primary Care Provider [phone] MD Edison Veronica II Attending Provider Edison Veronica II Unavailable [phone] MD Gina Javier Primary Care Provider MD Edison Veronica II Attending Provider [phone] MD Gina Javier Primary Care Provider MD Edison Veronica II Attending Provider [phone] MD Gina Javier Primary Care Provider MD Edison Veronica II Attending Provider Edison Veronica II Admitting Unavailabl e Gina Javier Primary Care Unavailable Edison Veronica II Attending Unavailabl e Gina Javier Primary Care Unavailable Edison Veronica II Attending Unavailsarah e Edison Veronica II Admitting Unavailabl e Gina Javier Primary Care Unavailable Edison Veronica II Attending Unavailabl e Edison Veronica II Admitting Unavailabl e Allergies Allergy Classification Reported Allergen(s) Allergy Type Date of Onset Reaction(s) Facility grepafloxacin (3 sources) grepafloxacin Drug Allergy 1 [facility] (12 sources) grepafloxacin; Translations: [grepafloxacin] Drug Allergy 1 Skin reaction (observable entity) General Surgery [place] (2 sources) grepafloxacin Drug Allergy [facility] Rep[facility] (8 sources) Adhesive Tape; Translations: [adhesive tape] Propensity to adverse reactions 3 Itching [facility] (1 source) grepafloxacin Drug Allergy 3 [facility] Repository Medications Current Medications Medication Drug [...] Simvastatin (ZOCOR). biotin 10 mg oral capsule (7 sources) Start: 01-20-2023 take 09501 ug by mouth once daily Biotin Active 80750 MCG PO Daily January 20, 2023 12:00am ceFAZolin (ANCEF) 2000 mg in dextrose 5 [...] MG O ral for 1 Days Not-Taking/PRN 250 ml glucose 50 mg/ml / sodium [...] oral is ineffective or cannot take oral. D o Not give oral and IV within 1 hour of each other unless specifically ordered. irbesartan 150 mg oral tablet (20 sources) Angiotensin 2 Receptor Phill Start: 06-08-2021 take 150 mg by mouth once daily in the morning Irbesartan Active 150 MG PO Every morning January 20, 2023 12:00am lansoprazole 30 mg Cap-DR (2 sources) Start: [...] 30 day(s) Jan, Active Multiple Vitamins-Minerals (THERAPEUTIC MULTIVITAMIN-MINERAL S) tablet (2 sources) take 1 tablet by mouth once daily Multiple Vitamins-Minerals (THERAPEUTIC MULTIVITAMIN-RADIATION OFFICER ALS) tablet Take 1 tablet by mouth daily 0 Active take 1 tablet by mouth once susan y Multiple Vitamins-Minerals (THERAPEUTIC MULTIVITAMIN-MINERALS) tablet Take 1 tablet by mouth daily 0 Suspended Multivitamin preparation (7 sources) Start: 01-20-2023 take 1 tablet by mouth once daily Multivitamin Active 1 TAB PO Daily January 19, 2023 11:00pm Start: 01-20-2023 take 1 tablet by demetrice th once daily Multivitamin Active 1 TAB PO Daily January 20, 2023 12:00am Promethazine (1 source) Phenothiazine Start: 11-18-2020 promethazine (PHENERGAN) tablet 12.5 mg Provitalize (7 sources) Start: 01-20-2023 take 1 dose by [...] Active 20 MG PO Every morning January 20, 2023 12:00am 3 ml sodium chloride 9 mg/ml injection [...] 1747 After every IV line use Post-op Completed/Discontinued Medications Medication Drug Class(es) Dates Sig [...] Start: 01-20-2023 take 2 capsules by m outh every six hours Acetaminophen (Tylenol Extra Strength) 500 mg Capsule Active 1000 MG PO Q6H January 20, 2023 12:00am take 1 capsule by mo uth every six hours Acetaminophen 500 MG 1 capsule as needed Orally every 6 hrs Active take 2 tablets by mo uth every six hours as needed for pain [...] BED UPON DISCHARGE DOS: 01/31/23 Jan, Not-Taking/PRN diclofenac sodium 75 mg delayed release oral tablet (20 sources) Nonsteroidal Anti-inflammatory Drug Start: 01-20-2023 End: 02-02-2024 take 75 mg by mouth twice daily Diclofenac Sodium Discontinued 75 MG PO Twice daily January 20, 2023 12:00am February 02, 2024 8:18am docusate sodium 50 mg / sennosides, alf 8.6 mg oral tablet (9 sources) Start: [...] days 20 tablet 0 11/19/2020 11/29/2020 Active doxepin hydrochloride 10 mg oral capsule (7 sources) Tricyclic Antidepressant Start: 01-20-2023 End: 02-02-2024 take 10 mg by mouth once daily at bedtime Doxepin Discontinued 10 MG PO Daily at bedtime January 20, 2023 12:00am February 02, 2024 8:19am 2 ml fentaNYL 0.05 mg/ml injection (1 [...] Once a day Not-Taking/PRN polyethylene glycol 3350 58304 mg powder for oral solution (7 sources) Osmotic Laxative Start: 01-27-2023 MiraLax 17 GM 1 packet mixed with 8 ounces of fluid Orally Once a day for 7 days MED TO BED UPON DISCHARGE DOS: 01/31/23 Jan, Not-Taking/PRN Start: 11-18-2020 17 g, Oral, DA AMBROSE, First dose on Tue11/18/20 at 1815, Post-op SUMAtriptan 100 mg oral tablet (20 sources) Serotonin-1b and Serotonin-1d Receptor Agonist Start: 06-08-2021 End: 02-02-2024 take 1 tablet by mouth once Sumatriptan Succinate (Imitrex) 100 mg Tablet Discontinued 100 MG PO Once January 20, 2023 12:00am February 02, 2024 8:19am Tirzepatide (7 sources) Start: 01-20-2023 End: 02-02-2024 Tirzepatide (Mounjaro) 5 mg/0.5 mL pen injector Discontinued 5 MG SUBCUT every week January 20, 2023 12:00am February 02, 2024 8:19am tuesdays Start: 01-20-2023 Tirzepatide (M ounjaro) 5 mg/0.5 mL pen injector Active 5 MG SUBCUT every week January 19, 2023 11:00pm tuesdays Start: 01-20-2023 Tirzepatide (M ounjaro) 5 mg/0.5 mL pen injector Active 5 MG SUBCUT every week January 20, 2023 12:00am tuesdays traMADol hydrochloride 50 mg oral tablet (15 [...] [Unilateral primary osteoarthritis, left hip] Chronic Osteoporosis (8 sources) Primary osteoporosis; Translations: [Age-related osteoporosis without current pathological fracture] Chronic Other aftercare (7 sources) Patient encounter status; Translations: [Aftercare following joint replacement surgery] 02-01-2024 Chronic Other aftercare (7 sources) Aftercare following joint replacement surgery; Translations: [Aftercare following joint replacement] Onset: 02-02-2024 Chronic Other aftercare (1 source) Other custodial (current) drug therapy Episodic Other connective tissue disease (5 sources) Hip joint prosthesis present; Translations: [Presence of left artificial hip joint] Chronic Other connective tissue disease (5 sources) History of total hip arthroplasty; Translations: [Presence of left artificial hip joint] Chronic Other connective tissue disease (9 sources) Presence of left artificial hip joint; Translations: [Presence of left artificial hip joint] Onset: 02-02-2024 Chronic Other connective tissue disease (1 source) [...] [Aftercare following joint replacement surgery] Onset: 03-17-2023 Past or Other Problems Problem Classification Problem Date Documented Da te Episodic/Chronic Spondylosis; intervertebral disc disorders; other back problems (8 sources) Spinal stenosis in cervical region; Translations: [Spinal stenosis, cervical region] Onset: 12-24-2021 Episodic Unclassified (1 source) Other low back pain M54.59 Results Test Name Value Interpretation Reference Range Facility XR hip LT min 2V(w/wo pelvis )*on 02-02-2024 XR hip LT min 2V(w/wo pelvis)* [facility] [address] [place] [address] XRay Report Signed Patient: Ana Palmer MR#: [id number] : 1970 Acct:[id number] Age/Sex: 53 / F ADM Date: 02/02/24 [place] [facility] [place]: Type: [facility] Attending Dr: Edison Veronica II, MD Copies to: Edison Veronica MD Ordering Provider: Edison Veronica MD Date of Service: 02/02/24 XR/XR hip LT min 2V(w/wo pelvis)*: Z47.1 - Aftercare following joint replacement surgery AP WEIGHTBEARING PELVIS AND LEFT HIP - 2 views: CLINICAL HISTORY: Follow-up hip replacement COMPARISON: 04/20/2023 AP view the pelvis and crosstable lateral view of left hip were obtained. A left hip prosthesis is again visualized. The hardware appears intact and unchanged from comparison. There is no developing fracture or dislocation. There is minor degenerative change at the right hip and minimal sclerosis at the SI joints. There are no significant soft tissue abnormalities. XR/XR hip LT min 2V(w/wo pelvis)* IMPRESSION: STABLE HIP REPLACEMENT. Impression dictated by: Radha Godinez M.D.02/02/2024 9:56 AM Dictation Location: [id number] Transcribed By: [facility] 02/02/24 0956 Dictated By: Radha Godinez MD 02/02/24 0950 Signed By: 02/02/24 0956 Normal [facility] XR hip LT min 2V(w/wo pelvis )*on 04-20-2023 XR hip LT min 2V(w/wo pelvis)* [facility] [place] Other XR hip LT min 2V(w/wo pelvis)* [facility] [place] Other XR hip LT min 2V(w/wo pelvis)* [address] [place] [address] [place] Other XR hip LT min 2V(w/wo pelvis)* [place] [address] [employer] Other XR hip LT min 2V(w/wo pelvis)* XRay Report [employer] Other XR hip LT min 2V(w/wo pelvis)* Signed [employer] Other XR hip LT min 2V(w/wo pelvis)* Patient: Ana Palmer MR#: [id number] [employer] Other XR hip LT min 2V(w/wo pelvis)* : 1970 Acct:[id number] [employer] Other XR hip LT min 2V(w/wo pelvis)* Age/Sex: 52 / F ADM Date: 04/20/23 [employer] Other XR hip LT min 2V(w/wo pelvis)* [place] [facility] [place]: Type: [facility] [employer] Other XR hip LT min 2V(w/wo pelvis)* Attending Dr: Edison Veronica II, MD [employer] Other XR hip LT min 2V(w/wo pelvis)* Copies to: Edison Veronica MD [employer] Other XR hip LT min 2V(w/wo pelvis)* Ordering Provider: Edison Veronica MD [employer] Other XR hip LT min 2V(w/wo pelvis)* Date of Service: 04/20/23 [employer] Other XR hip LT min 2V(w/wo pelvis)* XR/XR hip LT min 2V(w/wo pelvis)*: S/P total left hip arthroplasty [employer] Other XR hip LT min 2V(w/wo pelvis)* AP PELVIS AND LEFT HIP - 2 views: [employer] Other XR hip LT min 2V(w/wo pelvis)* CLINICAL HISTORY: Follow-up left hip replacement [employer] Other XR hip LT min 2V(w/wo pelvis)* COMPARISON: 03/17/2023 [employer] Other XR hip LT min 2V(w/wo pelvis)* AP view of the pelvis and crosstable lateral view of the left hip were obtained. A left hip [employer] Other XR hip LT min 2V(w/wo pelvis)* prosthesis is again visualized. The hardware appears intact and unchanged from the prior. There is [employer] Other XR hip LT min 2V(w/wo pelvis)* no developing fracture or dislocation. There is minor sclerosis at the SI joints. There are no [employer] Other XR hip LT min 2V(w/wo pelvis)* significant soft tissue abnormalities. [employer] Other XR hip LT min 2V(w/wo pelvis)* XR/XR hip LT min 2V(w/wo pelvis)* [employer] Other XR hip LT min 2V(w/wo pelvis)* IMPRESSION: [employer] Other XR hip LT min 2V(w/wo pelvis)* STABLE LEFT HIP REPLACEMENT [employer] Other XR hip LT min 2V(w/wo pelvis)* Impression dictated by: Radha Godinez M.D.04/20/2023 11:47 AM [employer] Other XR hip LT min 2V(w/wo pelvis)* Dictation Location: [facility] [address]- [employer] Other XR hip LT min 2V(w/wo pelvis)* Transcribed By: SAAD 04/20/23 1147 [employer] Other XR hip LT min 2V(w/wo pelvis)* Dictated By: Radha Godinez MD 04/20/23 1146 [employer] Other XR hip LT min 2V(w/wo pelvis)* Signed By: [employer] Other XR hip LT min 2V(w/wo pelvis)* 04/20/23 1147 [employer] Other XR hip LT min 2V(w/wo pelvis)* [facility] Main [address] [address] XRay Report Signed Patient: Ana Palmer MR#: [id number] : 1970 Acct:[id number] Age/Sex: 52 / F ADM Date: 04/20/23 [place] [facility] [place]: Type: [facility] Attending Dr: Edison Veronica II, MD Copies [...] Radha Godinez M.D.04/20/2023 11:47 AM Dictation Location: [place] [address] Transcribed By: [facility] 04/20/23 1147 Dictated By: Radha Godinez MD 04/20/23 1146 Signed By: 04/20/23 1147 Normal [facility] XR hip LT min 2V(w/wo pelvis )*on 03-17-2023 XR hip LT min 2V(w/wo pelvis)* [facility] Main [address] [address] XRay Report Signed Patient: Ana Palmer MR#: [id number] : 1970 Acct:[id number] Age/Sex: 52 / F ADM Date: 03/17/23 [place]: [facility] Room: Type: REG [facility] Attending Dr: Edison Veronica II, MD Copies [...] Wes Serrano M.D.03/17/2023 1:05 PM Dictation Location: [place] [address] Transcribed By: [facility] 03/17/23 1305 Dictated By: Wes Serrano DO 03/17/23 1304 Signed By: 03/17/23 1305 Normal [facility] Glucose Glucometer (BldC) [M ass/Vol]Ordered By: Edison Veronica on 01-31-2023 Glucose [Mass/Vol] 179 mg/dL [facility] Comment on above: Random Glucose Refer ence Range is dependent on time and content of last meal. Glucose of more than 200 mg/dL in a nonstressed, ambulatory subject supports the diagnosis of Diabetes Mellitus. Automated erythrocytes count in urine sediment (number/area)Ordered By: Edison Veronica on 01-20-2023 RBC Auto (Urine sed) [#/Area] None seen [HPF] 0-4 [facility] Automated leukocytes count i n urine sediment (number/area)Ordered By: Edison Veronica on 01-20-2023 WBC Auto (Urine sed) [#/Area] 3-4 [HPF] 0-4 [facility] Basophils Auto (Bld) [#/Vol] Ordered By: Edison Veronica on 01-20-2023 Basophils (Bld) [#/Vol] 0.0 10*3/uL 0.0-0.2 [facility] Basophils/100 WBC Auto (Bld) Ordered By: Edison Veronica on 01-20-2023 Basophils/100 WBC (Bld) 1.0 % . [facility] Bilirubin Test strip Ql (U)O rdered By: Edison Veronica on 01-20-2023 Bilirubin Ql (U) Negative Negative [facility] Calcium [Mass/volume] in Ser um or PlasmaOrdered By: Edison Veronica on 01-20-2023 Calcium [Mass/Vol] 9.2 mg/dL 8.6-10.3 [facility] Carbon dioxide, total [Moles /volume] in Serum or PlasmaOrdered By: Edison Veronica on 01-20-2023 CO2 [Moles/Vol] 29.0 mmol/L 21.0-31.0 [facility] Chloride [Moles/volume] in S sima or PlasmaOrdered By: Edison Veronica on 01-20-2023 Chloride [Moles/Vol] 103 mmol/L 98-107 [facility] Color Auto (U)Ordered By: Lilian Veronica on 01-20-2023 Color (U) Yellow Yellow [facility] Creatinine [Mass/volume] in Serum or PlasmaOrdered By: Edison Veronica on 01-20-2023 Creatinine [Mass/Vol] 0.67 mg/dL 0.60-1.[address] [facility] Eosinophils Auto (Bld) [#/Vo l]Ordered By: Edison Veronica on 01-20-2023 Eosinophils (Bld) [#/Vol] 0.0 10*3/uL 0.0-0.45 [facility] Eosinophils/100 WBC Auto (Bl d)Ordered By: Edison Veronica on 01-20-2023 Eosinophils/100 WBC (Bld) 0.0 % . [facility] Erythrocyte distribution wid th Auto (RBC) [Ratio]Ordered By: Edison Veronica on 01-20-2023 Erythrocyte distribution width (RBC) [Ratio] 14.0 % 11.9-15.3 [facility] Fructosamine [Moles/volume] in Serum or PlasmaOrdered By: Edison Veronica on 01-20-2023 Fructosamine [Moles/Vol] 196 umol/L 0-285 [facility] Comment on above: Published reference interval for apparently healthysubjects between age 20 and 60 is 205 - 285 umol/L and in apoorly controlled diabetic population is 228 - 563 umol/Lwith a mean of 396 umol/L.Performed at: - [facility] [id number] Director: Lane Rivera PhD, Phone: [phone] Glucose [Mass/volume] in Ser um or PlasmaOrdered By: Edison Veronica on 01-20-2023 Glucose [Mass/Vol] 149 mg/dL 70-100 [facility] Comment on above: ADA recommended refe rence rangeRandom Glucose Reference Range is dependent on time and content of last meal. Glucose of more than 200 mg/dL in a nonstressed, ambulatory subject supports the diagnosis of Diabetes Mellitus. Hematocrit Auto (Bld) [Volum e fraction]Ordered By: Edison Veronica on 01-20-2023 Hematocrit (Bld) [Volume fraction] 36.6 % 34.0-46.4 [facility] Hemoglobin [Mass/volume] in BloodOrdered By: Edison Veronica on 01-20-2023 Hemoglobin (Bld) [Mass/Vol] 12.3 g/dL 11.8-15.4 [facility] Ketones Auto test strip (U) [Mass/Vol]Ordered By: Edison Veronica on 01-20-2023 Ketones (U) [Mass/Vol] Negative Negative [facility] - UrinalysisOrder ed By: Edison Veronica on 01-20-2023 Hyaline casts LM Ql (Urine sed) None seen [LPF] 0-8 [facility] Leukocytes [#/volume] correc carola for nucleated erythrocytes in Blood by Automated counOrdered By: Edison Veronica on 01-20-2023 WBC corrected for nucl RBC Auto (Bld) [#/Vol] 3.5 10*3/uL 3.8-11.6 [facility] Lymphocytes Auto (Bld) [#/Vo l]Ordered By: Edison Veronica on 01-20-2023 Lymphocytes (Bld) [#/Vol] 1.3 10*3/uL 1.00-4.8 [facility] Lymphocytes/100 WBC Auto (Bl d)Ordered By: Edison Veronica on 01-20-2023 Lymphocytes/100 WBC (Bld) 36.7 % . [facility] MCH Auto (RBC) [Entitic mass ]Ordered By: Edison Veronica on 01-20-2023 MCH (RBC) [Entitic mass] 27.3 pg 24.7-34.3 [facility] MCHC Auto (RBC) [Mass/Vol]Or dered By: Edison Veronica on 01-20-2023 MCHC (RBC) [Mass/Vol] 33.5 g/dL 32.0-35.[address] [facility] MCV Auto (RBC) [Entitic vol] Ordered By: Edison Veronica on 01-20-2023 MCV (RBC) [Entitic vol] 81.4 fL 80-100 [facility] Monocytes Auto (Bld) [#/Vol] Ordered By: Edison Veronica on 01-20-2023 Monocytes (Bld) [#/Vol] 0.3 10*3/uL 0.0-0.8 [facility] Monocytes/100 WBC Auto (Bld) Ordered By: Edison Veronica on 01-20-2023 Monocytes/100 WBC (Bld) 7.2 % . [facility] Neutrophils Auto (Bld) [#/Vo l]Ordered By: Edison Veronica on 01-20-2023 Neutrophils (Bld) [#/Vol] 2.0 10*3/uL 1.8-7.7 [facility] Neutrophils/100 WBC Auto (Bl d)Ordered By: Edison Veronica on 01-20-2023 Neutrophils/100 WBC (Bld) 55.1 % . [facility] Nitrite Test strip Ql (U)Ord ered By: Edison Veronica on 01-20-2023 Nitrite Ql (U) Negative Negative [facility] No Panel InformationOrdered By: Edison Veronica on 01-20-2023 Estimated GFR (CKD-EPI) > 60.0 mL/Min [facility] Creatinine Clearance (Chem N/A [facility] Nucleated erythrocytes [Pres ence] in Blood by Automated countOrdered By: Edison Veronica on 01-20-2023 Nucleated RBC Auto Ql (Bld) 0.1 /100{WBC} 0-0.5 [facility] Platelet mean volume Auto (B ld) [Entitic vol]Ordered By: Edison Veronica on 01-20-2023 Platelet mean volume (Bld) [Entitic vol] 8.2 fL 6.3-10.7 [facility] Platelets Auto (Bld) [#/Vol] Ordered By: Edison Veronica on 01-20-2023 Platelets (Bld) [#/Vol] 248 10*3/uL 150-450 [facility] Potassium [Moles/volume] in Serum or PlasmaOrdered By: Edison Veronica on 01-20-2023 Potassium [Moles/Vol] 4.3 mmol/L 3.5-5.[address] [facility] Protein Auto test strip (U) [Mass/Vol]Ordered By: Edison Veronica on 01-20-2023 Protein (U) [Mass/Vol] Negative Negative [facility] RBC Auto (Bld) [#/Vol]Ordere d By: Edison Veronica on 01-20-2023 RBC (Bld) [#/Vol] 4.50 10*6/uL 3.60-5.00 [facility] Serum or plasma anion gap de terminationOrdered By: Edison Veronica on 01-20-2023 Anion gap [Moles/Vol] 11.3 mmol/L 6.0-15.0 [facility] Sodium [Moles/volume] in Ser um or PlasmaOrdered By: Edison Veronica on 01-20-2023 Sodium [Moles/Vol] 139 mmol/L 136-145 [facility] Specific gravity Auto test s trip (U) [Rel density]Ordered By: Edison Veronica on 01-20-2023 Specific gravity (U) [Rel density] 1.008 1.001-1.03 0 [facility] Squamous epithelial cells de tection in urine sediment by light microscopyOrdered By: Edison Veronica on 01-20-2023 Epithelial cells.squamous LM Ql (Urine sed) None seen [HPF] 0-2 [facility] Urea nitrogen [Mass/volume] in Serum or PlasmaOrdered By: Edison Veronica on 01-20-2023 Urea nitrogen [Mass/Vol] 16 mg/dL 7-25 [facility] Urine bacteria detection by automated methodOrdered By: Edison Veronica on 01-20-2023 Bacteria Auto Ql (U) None seen None [facility] Urine clarity by refractomet ry automatedOrdered By: Edison Veronica on 01-20-2023 Clarity Refractometry automated (U) Clear Clear [facility] Urine glucose measurement by automated test strip (mass/volume)Ordered By: Edison Veronica on 01-20-2023 Glucose Auto test strip (U) [Mass/Vol] Normal mg/dL Normal [facility] Urine hemoglobin detection b y automated test stripOrdered By: Edison Veronica on 01-20-2023 Hemoglobin Auto test strip Ql (U) Negative Negative [facility] Urine leukocyte esterase det ection by automated test stripOrdered By: Edison Veronica on 01-20-2023 Leukocyte esterase Auto test strip Ql (U) 2+ Negative [facility] Urobilinogen Auto test strip (U) [Mass/Vol]Ordered By: Edison Veronica on 01-20-2023 Urobilinogen (U) [Mass/Vol] Normal mg/dL Normal [facility] WBC Auto (Bld) [#/Vol]Ordere d By: Edison Veronica on 01-20-2023 WBC (Bld) [#/Vol] 3.5 10*3/uL 3.8-11.6 [facility] pH Auto test strip (U)Ordere d By: Edison Veronica on 01-20-2023 pH (U) 6.0 [pH] 5.0-9.0 [facility] Albumin [Mass/volume] in Ser um or Plasma by Bromocresol green (BCG) dye binding methoOrdered By: Edison Veronica on 12-24-2022 Albumin BCG dye [Mass/Vol] 4.5 g/dL 3.5-5.7 [facility] Cotinine [Mass/volume] in Se rum or PlasmaOrdered By: Edison Veronica on 12-24-2022 Cotinine [Mass/Vol] <1.0 ng/mL . [facility] Comment on above: This test was develo ped and its performance characteristicsdetermined by [facility]. It has not been cleared orapproved by the Food and Drug Administration.Cotinine levels greater than 20.0 are consistent with theuse of tobacco or tobacco cessation products.Performed at: [address] [id number] Director: Antonio Dumont MD, Phone: [phone] Glucose mean value [Mass/vol ume] in Blood Estimated from glycated hemoglobinOrdered By: Edison Veronica on 12-24-2022 Average glucose Estimated from glycated hemoglobin (Bld) [Mass/Vol] 111 mg/dL [facility] Hemoglobin A1c percentageOrd ered By: Edison Veronica on 12-24-2022 HbA1c (Bld) [Mass fraction] 5.5 % 4.3-5.6 [facility] Comment on above: Increased risk for d iabetes: 5.7 - 6.4diabetes: >6.4glycemic control for adults with diabetes: <7.0 Hemoglobin [Mass/volume] in BloodOrdered By: Edison Veronica on 12-24-2022 Hemoglobin (Bld) [Mass/Vol] 13.0 g/dL 11.8-15.4 [facility] Nicotine [Mass/volume] in Se rum or PlasmaOrdered By: Edison Veronica on 12-24-2022 Nicotine [Mass/Vol] <1.0 ng/mL . [facility] Comment on above: This test was develo ped and its performance characteristicsdetermined by [employer]. It has not been cleared orapproved by the Food and Drug Administration.Nicotine levels greater than 2.0 are consistent with theuse of tobacco or tobacco cessation products. Vitamin D+Metabolites [Mass/ volume] in Serum or PlasmaOrdered By: Edison Veronica on 12-24-2022 Vitamin D+Metabolites [Mass/Vol] 50.9 ng/mL 30-100 [facility] Comment on above: VITAMIN D STATUS 25( [place])VITAMIN D RANGE (ng/mL) Deficient <20 Insufficient 20 to <30Sufficient 30 to 100Reference: Casandra KOROMA,Maddi ROBIN, Adam WHITE, et al. Evaluation,treatment, and prevention of vitamin D deficiency; an Endocrine Society clinical practice guideline. JCEM. 2010; 96(7):1911-30. Wound methicillin resistant Staphylococcus aureus (MRSA) cultureOrdered By: Edison Veronica on 12-24-2022 MRSA isol Org specific cx Ql (Unsp spec) No MRSA Isolated 2 Days [facility] MRSA isol Org specific cx Ql (Unsp spec) No MRSA Isolated 2 Days [facility] MG MAMM SCREEN 3D ADALBERTO CADon 09-09-2022 MG MAMM SCREEN 3D ADALBERTO CAD Patient: ANA PALMER Exam Date: 09/09/2022 : 1970 Gender:F Ordering : DR GINA JAVIER . Admission #: [id number] Family : Order #: [id number] CLICK HERE TO VIEW EXAM RADIOLOGY REPORT [...] aml cancer at age 24. LOCATION: [facility] BREAST COMPOSITION: Heterogeneously dense,which may obscure [...] Gerber MD on 09/09/2022 at 12:06 Normal [facility] CBC AUTO DIFFon 07-08-2022 BASO # 0.0 103/ul Normal 0.0-0.1 [facility] Comment on above: Performed By: #### C BC #### [facility] [address] [address] [address] Juliana Brooks Basophils/100 WBC (Bld) 0.9 % Normal 0.2-2.0 [facility] Comment on above: Performed By: #### C BC #### [facility] [address] [place] [address] Dr. Juliana Brooks EO # 0.0 103/ul Normal 0.0-0.7 [facility] Comment on above: Performed By: #### C BC #### [facility] [address] [place] [address] Dr. Juliana Brokos Eosinophils/100 WBC (Bld) 0.4 % Critically low 0.9-7.0 [facility] Comment on above: Performed By: #### C BC #### [facility] [address] [place] [address] Dr. Juliana Brooks Erythrocyte distribution width (RBC) [Ratio] 16.3 % Critically high 11.0-15.0 [facility] Comment on above: Performed By: #### C BC #### [facility] [address] [place] [address] Dr. Juliana Brooks Hematocrit (Bld) [Volume fraction] 37.3 % Normal 36.0-48.0 [facility] Comment on above: Performed By: #### C BC #### [facility] [address] [place] [address] Dr. Juliana Brooks Hemoglobin (Bld) [Mass/Vol] 11.1 g/dL Critically low 12.0-16.0 [facility] Comment on above: Performed By: #### C BC #### [facility] [address] [place] [address] Dr. Juliana Brooks IG # 0.01 10e3/ul Normal 0.00-0.03 [facility] Comment on above: Performed By: #### C BC #### [facility] [address] [place] [address] Dr. Juliana Brooks IG % 0.2 % Normal 0.0-0.5 [facility] Comment on above: Performed By: #### C BC #### [facility] [address] [place] [address] Dr. Juliana Brooks LYMPH # 1.6 103/ul Normal 1.2-3.8 [facility] Comment on above: Performed By: #### C BC #### [facility] [address] [place] [address] Dr. Juliana Brooks Lymphocytes/100 WBC (Bld) 33.0 % Normal 20.5-60.0 [facility] Comment on above: Performed By: #### C BC #### [facility] [address] [place] [address] Dr. Juliana Brooks MANUAL DIFF REQ NO Normal [facility] Comment on above: Performed By: #### C BC #### [facility] [address] [place] [address] Dr. Juliana Brooks MCH (RBC) [Entitic mass] 23.2 pg Critically low 26.7-34.0 [facility] Comment on above: Performed By: #### C BC #### [facility] [address] [place] [address] Dr. Juliana Brooks MCHC (RBC) [Mass/Vol] 29.8 g/dL Critically low 29.9-35.2 [facility] Comment on above: Performed By: #### C BC #### [facility] [address] [place] [address] Dr. Juliana Brooks MCV (RBC) [Entitic vol] 78.0 fL Critically low 81.0-99.0 [facility] Comment on above: Performed By: #### C BC #### [facility] [address] [place] [address] Dr. Juliana Brooks MONO # 0.5 103/ul Normal 0.3-0.8 [facility] Comment on above: Performed By: #### C BC #### [facility] [address] [place] [address] Dr. Juliana Brooks Monocytes/100 WBC (Bld) 10.0 % Normal 1.7-12.0 [facility] Comment on above: Performed By: #### C BC #### [facility] [address] [place] [address] Dr. Juliana Brooks NEUT # 2.6 103/ul Normal 1.4-6.5 [facility] Comment on above: Performed By: #### C BC #### [facility] [address] [address] [address] Juliana Brooks Neutrophils/100 WBC (Bld) 55.5 % Normal 43.0-75.0 [facility] Comment on above: Performed By: #### C BC #### [facility] [address] [address] [address] Juliana Brooks Platelet mean volume (Bld) [Entitic vol] 10.2 fL Normal 9.5-13.5 [facility] Comment on above: Performed By: #### C BC #### [facility] [address] [address] [address] Juliana Brooks PLT 320 103/ul Normal 150-450 [facility] Comment on above: Performed By: #### C BC #### [facility] [address] [place] [address] Dr. Juliana Brooks RBC 4.78 106/ul Normal 4.20-5.40 [facility] Comment on above: Performed By: #### C BC #### [facility] [address] [place] [address] Dr. Juliana Brooks WBC 4.7 103/ul Normal 4.0-11.0 [facility] Comment on above: Performed By: #### C BC #### [facility] [address] [place] [address] Dr. Juliana Brooks FREE THYROXINE INDEX T7on FTI 3.24 Normal 1.30-4.50 [facility] Comment on above: Performed By: #### T 7, TSH, CMP, LIPID #### [facility] [address] [place] [address] Dr. Juliana Brooks T3U 36.0 % Normal 30.0-39.0 [facility] Comment on above: Performed By: #### T 7, TSH, CMP, LIPID #### [facility] [address] [place], [place] [id number] Dr. Juliana Brooks T4 [Mass/Vol] 9.00 ug/dL Normal 4.80-13.90 [facility] Comment on above: Performed By: #### T 7, TSH, CMP, LIPID #### [facility] [address] [address] [address] Juliana Brooks GLYCOHEMOGLOBIN A1Con 2022 ADA RECOMMENDATION SEE BELOW Normal [facility] Comment on above: Result Comment: ADA RECOMMENDED LIMIT 4.0 - 6.0 ADA THERAPEUTIC TARGET < 7.0 ACTION SUGGESTED > 7.0 Performed By: #### A 1C #### [facility] [address] [address] [address] Juliana Brooks Glucose [Mass/Vol] 137 mg/dL Normal [facility] Comment on above: Performed By: #### A 1C #### [facility] [address] [address] [address] Juliana Brooks HbA1c (Bld) [Mass fraction] 6.4 % Critically high 4.5-6.2 [facility] Comment on above: Performed By: #### A 1C #### [facility] [address] [place] [address] Dr. Juliana Brooks IRONon 07-08-2022 Iron [Mass/Vol] 54.0 ug/dL Normal 50.0-170.0 [facility] Comment on above: Performed By: #### I SARAH #### [facility] [address] [place] [address] Dr. Juliana Brooks LIPID PROFILEon 07-08-2022 CHOL-HDL RATIO NORM SEE BELOW Normal [facility] Comment on above: Result Comment: 3.3 - 4.4 LOW RISK 4.4 - 7.1 AVERAGE RISK 7.1 - 11.0 MODERATE RISK >11.0 HIGH RISK Performed By: #### T 7, TSH, CMP, LIPID #### [facility] [address] [place] [address] Dr. Juliana Brooks Cholesterol [Mass/Vol] 159 mg/dL Normal <=200 [facility] Comment on above: Performed By: #### T 7, TSH, CMP, LIPID #### [facility] [address] [place] [address] Dr. Juliana Brooks Cholesterol in HDL [Mass/Vol] 74 mg/dL Critically high 40-60 [facility] Comment on above: Performed By: #### T 7, TSH, CMP, LIPID #### [facility] [address] [address] [address] Juliana Brooks Cholesterol in LDL [Mass/Vol] 74.4 mg/dL Normal [facility] Comment on above: Performed By: #### T 7, TSH, CMP, LIPID #### [facility] [address] [address] [address] Juliana Brooks Cholesterol.total/Cho lesterol in HDL [Mass ratio] 2.1 {ratio} Normal [facility] Comment on above: Performed By: #### T 7, TSH, CMP, LIPID #### [facility] [address] [address] [address] Juliana Brooks HDL NORMAL > or = 60 mg/dl - LO W CARDIOVASCULAR RISK <40 mg/dl - HIGH CARDIOVASCULAR RISK Normal [facility] Comment on above: Performed By: #### T 7, TSH, CMP, LIPID #### [facility] [address] [address] [address] Juliana Brooks LDL CALC NORMAL SEE BELOW Normal [facility] Comment on above: Result Comment: <100 mg/dl OPTIMAL 100 - 129 mg/dl NEAR OR ABOVE OPTIMAL 130 - 159 mg/dl BORDERLINE HIGH 160 - 189 mg/dl HIGH >190 mg/dl VERY HIGH Performed By: #### T 7, TSH, CMP, LIPID #### [facility] [address] [address] [address] Juliana Brooks Triglyceride [Mass/Vol] 53 mg/dL Normal <=150 [facility] Comment on above: Performed By: #### T 7, TSH, CMP, LIPID #### [facility] [address] [address] [address] Juliana Brooks VLDL CALC 10.6 mg/dL Normal [facility] Comment on above: Performed By: #### T 7, TSH, CMP, LIPID #### [facility] [address] [address] [address] Juliana Brooks PROF 14(COMP METB)on 023 Albumin [Mass/Vol] 3.6 g/dL Normal 3.4-5.0 [facility] Comment on above: Performed By: #### T 7, TSH, CMP, LIPID #### [facility] [address] [address] [address] Juliana Brooks Albumin/Globulin [Mass ratio] 1.1 {ratio} Normal [facility] Comment on above: Performed By: #### T 7, TSH, CMP, LIPID #### [facility] [address] [place] [address] Dr. Juliana Brooks ALP [Catalytic activity/Vol] 107 U/L Normal 46-116 [facility] Comment on above: Performed By: #### T 7, TSH, CMP, LIPID #### [facility] [address] [place] [address] Dr. Juliana Brooks ALT [Catalytic activity/Vol] 26 U/L Normal 14-59 [facility] Comment on above: Performed By: #### T 7, TSH, CMP, LIPID #### [facility] [address] [place] [address] Dr. Juliana Brooks Anion gap [Moles/Vol] 11.1 mmol/L Normal [facility] Comment on above: Performed By: #### T 7, TSH, CMP, LIPID #### [facility] [address] [place] [address] Dr. Juliana Brooks AST [Catalytic activity/Vol] 19 U/L Normal 15-37 [facility] Comment on above: Performed By: #### T 7, TSH, CMP, LIPID #### [facility] [address] [place] [address] Dr. Juliana Brooks Bilirubin [Mass/Vol] 0.3 mg/dL Normal 0.2-1.0 [facility] Comment on above: Performed By: #### T 7, TSH, CMP, LIPID #### [facility] [address] [place] [address] Dr. Juliana Brooks Calcium [Mass/Vol] 9.2 mg/dL Normal 8.5-10.1 [facility] Comment on above: Performed By: #### T 7, TSH, CMP, LIPID #### [facility] [address] [place] [address] Dr. Juliana Brooks Chloride [Moles/Vol] 106 mmol/L Normal 98-107 [facility] Comment on above: Performed By: #### T 7, TSH, CMP, LIPID #### [facility] [address] [address] [address] Juliana Brooks CO2 [Moles/Vol] 28.3 mmol/L Normal 21.0-32.0 [facility] Comment on above: Performed By: #### T 7, TSH, CMP, LIPID #### [facility] [address] [place] [address] Dr. Juliana Brooks Creatinine [Mass/Vol] 0.60 mg/dL Normal 0.55-1.02 [facility] Comment on above: Performed By: #### T 7, TSH, CMP, LIPID #### [facility] [address] [place] [address] Dr. Juliana Brooks EGFR-AF HONDURAN >60 Normal >=60 [facility] Comment on above: Performed By: #### T 7, TSH, CMP, LIPID #### [facility] [address] [place] [address] Dr. Juliana Brooks EGFR-NON AF HONDURAN >60 Normal >=60 [facility] Comment on above: Performed By: #### T 7, TSH, CMP, LIPID #### [facility] [address] [place] [address] Dr. Juliana Brooks Globulin (S) [Mass/Vol] 3.4 g/dL Normal [facility] Comment on above: Performed By: #### T 7, TSH, CMP, LIPID #### [facility] [address] [place] [address] Dr. Juliana Brooks Glucose [Mass/Vol] 104 mg/dL Normal 74-106 [facility] Comment on above: Performed By: #### T 7, TSH, CMP, LIPID #### [facility] [address] [place] [address] Dr. Juliana Brooks Potassium [Moles/Vol] 4.4 mmol/L Normal 3.5-5.1 [facility] Comment on above: Performed By: #### T 7, TSH, CMP, LIPID #### [facility] [address] [address] [address] Juliana Brooks Protein [Mass/Vol] 7.0 g/dL Normal 6.4-8.2 [facility] Comment on above: Performed By: #### T 7, TSH, CMP, LIPID #### [facility] [address] [address] [address] Juliana Brooks Sodium [Moles/Vol] 141 mmol/L Normal 136-145 [facility] Comment on above: Performed By: #### T 7, TSH, CMP, LIPID #### [facility] [address] [address] [address] Juliana Brooks Urea nitrogen [Mass/Vol] 11.0 mg/dL Normal 7.0-18.0 [facility] Comment on above: Performed By: #### T 7, TSH, CMP, LIPID #### [facility] [address] [address] [address] Juliana Brooks Urea nitrogen/Creatinine [Mass ratio] 18.3 mg/mg Normal [facility] Comment on above: Performed By: #### T 7, TSH, CMP, LIPID #### [facility] [address] [address] [address] Juliana Brooks TSHon 07-08-2022 TSH Qn m[IU]/L Critically low 0.358-3.74 0 [facility] Comment on above: Performed By: #### T 7, TSH, CMP, LIPID #### [facility] [address] [place] [address] Dr. Juliana Brooks MRI LSPINE WO CONon 12-25-19 MRI LSPINE WO CON EXAMINATION: MRI LSP [...] by: IRENE AGUILERA Date: 2021-12-24 16:08 Normal [facility] XR LSPINE MIN 4 VIEWSon 11-16 [...] by: ALE GERBER Date: 2021-11-26 18:41 Normal [facility] Ambulatory Visit Summaryon 0 07-24-2021 Ambulatory Visit Summary ESTELA ANA Teran :1970 Visit Date:07/24/2021 Ambulatory Visit Instructions Your Diagnosis Reducible right inguinal hernia Incisional hernia Your Care Team Attending Physician - KHANG BARTH, Jerry Randolph Primary Care Physician - Greg BARTH, Gina This Is Your Medications List [...] Reducible right inguinal hernia Sleep apnea Normal [facility] General Surgery Office/Clini c Noteon 07-24-2021 General [...] inactivated - Not Given Patient Refuses Normal [facility] Comment on above: Result Comment: Elec tronically [...] Jerry QUIÑONEZ MD Where: General Surgery K[facility]/Jens Weldon Normal [facility] General Surgery Office/Clini c Noteon 07-10-2021 General [...] vaccine, inactivated - Not Given Patient Refuses [facility] Comment on above: Result Comment: Elec tronically Signed By: KHANG BARTH, Jerry Warren\Date and Time Signed: 07/10/21 14:23 EDT Operative Reporton Operative Report [id number]:127 [facility] Lab Reportson 06-29-2021 Lab Reports [id number]#1.00CD:127 [facility] ECG 12-Leadon 06-24-2021 ECG 12-Lead [id number]#1.00CD:127 [facility] Pre-Certification Formon Pre-Certification Form [id number]#1.00CD:127 Normal [facility] RAD - CT Reporton 06-14-2021 RAD - CT Report [id number]#1.00CD:127 Normal [facility] Consent for Procedure/Surger yon 06-11-2021 Consent for Procedure/Surgery [id number]#1.00CD:127 Normal [facility] Ambulatory Visit Summaryon 0 06-10-2021 Ambulatory Visit Summary ANA PALMER :1970 Visit Date:06/10/2021 Ambulatory Visit Instructions Your Care Team Attending Physician - KHANG BARTH, Jerry Randolph Primary Care Physician - Greg BARTH, Gina Referring Physician - Gina Javier MD This [...] Radiculopathy of cervical spine Sleep apnea Normal [facility] Physician Referralon 022 Physician Referral [id number]#1.00CD:127 Normal [facility] FLUORO FOR SURGICAL PROCEDUR ESOrdered By: Mejia Griffin on 11-18-2020 Jamie, Chpo Incoming R adiant Results From [employer] - 11/18/2020 2:23 PM EDT EXAMINATION: FLUORO FOR SURGICAL PROCEDURES CLINICAL HISTORY: R52 Pain ICD10 COMPARISONS: None available. FINDINGS: Fluoroscopic assistance was provided during ACDF, C5-6 and C6-7 The total radiation time is 31.9 seconds, radiation dose is 3.62mGy. IMPRESSION: Intraprocedural fluoroscopic support has been provided. Please refer to the procedure report. [employer] Work Phone: [employer] Work Phone: Surgical Specimenon 11-19-19 21 Surgical Specimen [facility] [address] [place] [address] FINAL SURGICAL PATHOLOGY REPORT Patient Name: ANA PALMER Accession No: [id number] Age Sex: 1970 Location: [place] [address] Account No: [id number] Collected: 11/18/2020 Med Rec No: [id number] Received: 11/18/2020 Attend Phys: MEJIA GRIFFIN Completed: [...] in three cassettes following decalcification. LUAN CPT: 15676 X1 99517 X1 JERAMIE ERVIN M.D. 11/20/2020 Electronically signed out by Page 1 of 1 Invalid Interpretation Code [facility] Comment on above: Performed By: #### S UR #### [facility] [address] [place] [address] COVID-19, PCRon 11-08-2020 SARS-CoV-2 (COVID-19) RNA AISHA+probe Ql (Unsp spec) Not detected Normal Not Detect [facility] Comment on above: Result Comment: Test ing was performed using [employer] SARS-CoV-2 Assay. Negative results do not preclude [...] oropharyngeal and mid-turbinate specimens. Patient Fact Sheet: https://www.fda.gov/media/800823/download Provider Fact Sheet: https://www.fda.gov/media/802207/download FDA Specimen Types Link: https://www.fda.gov/medical-devices/ cxyevcqwyqb-fgeox-52-eoy-zeovpjm-ailpaan/qkjb-vjrxedp-gezf-cov-2 Methodology: RT-PCR Performed By: #### C OVB #### [facility] [address] [place] [id number] CBC With Platelet No Differe ntialon 11-07-2020 Erythrocyte distribution width (RBC) [Ratio] 15.8 % Critically high 11.5-14.5 [facility] Comment on above: Performed By: #### C BCND #### [facility] [address] [place] [address] Hematocrit (Bld) [Volume fraction] 37.5 % Normal 37.0-47.0 [facility] Comment on above: Performed By: #### C BCND #### [facility] [address] [place] [address] Hemoglobin (Bld) [Mass/Vol] 12.1 g/dL Normal 12.0-16.0 [facility] Comment on above: Performed By: #### C BCND #### [facility] [address] [place] [address] MCH (RBC) [Entitic mass] 26.2 pg Low 27.0-31.3 [facility] Comment on above: Performed By: #### C BCND #### [facility] [address] [place] [address] MCHC 32.3 % Low 33.0-37.0 [facility] Comment on above: Performed By: #### C BCND #### [facility] [address] [place] [address] MCV (RBC) [Entitic vol] 81.3 fL Low 82.0-100.0 [facility] Comment on above: Performed By: #### C BCND #### [facility] [address] [place] [address] Platelets (Bld) [#/Vol] 301 10*3/uL Normal 130-400 [facility] Comment on above: Performed By: #### C BCND #### [facility] [address] [place] [address] RBC (Bld) [#/Vol] 4.61 10*6/uL Normal 4.20-5.40 [facility] Comment on above: Performed By: #### C BCND #### [facility] [address] [place] [address] WBC (Bld) [#/Vol] 3.7 10*3/uL Low 4.8-10.8 [facility] Comment on above: Performed By: #### C BCND #### [facility] [address] [place] [address] Partial Thromboplastin Timeo n 11-07-2020 aPTT Coag (Bld) [Time] 28.0 s Normal 24.4-36.8 [facility] Comment on above: Result Comment: Effe ctive 02/20/2020: Heparin Therapeutic Range: 64.0 ? 98.0 seconds. Performed By: #### P TT #### [facility] [address] [place] [address] Prothrombin Timeon INR Coag (PPP) [Relative time] 1.0 {INR} Normal [facility] Comment on above: Performed By: #### P T #### [facility] [address] [place] [address] PT Coag (PPP) [Time] 13.3 s Normal 12.3-14.9 [facility] Comment on above: Performed By: #### P T #### [facility] [address] [place] [address] Type and Screen Capture 3 sc rn cellon 11-07-2020 Type and Screen Capture 3 scrn cell PATIENT: ESTELA PEREZ LOC: [facility] BILL# : [id number] : 1970 SEX: F ORDERED BY: TIM CASTILLO ORDERED : 11/07/2020 13:32 COLLECTED: 11/07/2020 13:32 ORDER : [id number] RECEIVED : 11/07/2020 19:33 TEST NAME RESULT UNITS RANGES ABN FL ST ABORH Capture O POS F Antibody 3 Cell Scrn Captu NEG F Normal [facility] Comment on above: Performed By: #### T S3C #### [facility] [address] [place] [id number] MRI CERVICAL SPINE WO CONTRA STOrdered By: [...] gland, may consider dedicated thyroid ultrasound imaging. [facility] [employer] Work Phone: EXAMINATION: MRI CER VICAL SPINE [...] hypertrophy with mild left neural foraminal narrowing. [employer] Work Phone: Jamie, Chpo Incoming R adiant Results From [employer] - 09/10/2020 12:02 PM EDT EXAMINATION: MRI [...] gland, may consider dedicated thyroid ultrasound imaging. [employer] Work Phone: [employer] Phone: MRI CERVICAL SPINE WO CONTRA STon [...] Leandro Spaulding MD 09/10/20 Final result Normal [facility] [facility] COVID-19, NAAon 09-04-2020 SARS-CoV-2 (COVID-19) RNA AISHA+probe Ql (Unsp spec) Not detected Normal Not Detect [facility] Comment on above: Result Comment: This nucleic acid amplification test was developed and its performance characteristics determined by [employer]. Nucleic acid amplification tests include RT-PCR and [...] detected) result in this assay. Performed at: [address] [id number] Vehicle Operator Technician: Lane Rivera PhD, Phone: [phone] Performed By: #### I RCOV #### [facility] [address] [place] [id number] COVID-19, NAAon 09-02-2020 Source Swab Anterior nares Normal [facility] Comment on above: Performed By: #### I RCOV #### [facility] [address] [place] [address] Vital Signs Date Time Vital Sign Value Performing Clinician Facility 02-16-2023 15:45-0400 Body height 162.56 cm Edison Veronica II Other [facility] Other 02-16-2023 15:45-0400 Body mass index (BMI) [Ratio] 25.4 kg/m2 Edison Veronica II Other [facility] Other 02-16-2023 15:45-0400 Body weight 67.13 kg Edison Veronica II Other [facility] Other 01-31-2023 18:30-0400 Diastolic blood pressure 78 mm[Hg] MD Gina Javier Work Phone: [facility] 01-31-2023 18:30-0400 Heart rate 98 /min MD Gina Javier Work Phone: [facility] 01-31-2023 18:30-0400 Respiratory rate 16 /min MD Gina Javier Work Phone: [facility] 01-31-2023 18:30-0400 SaO2% (BldA) [Mass fraction] 96 % MD Gina Javier Work Phone: [facility] 01-31-2023 18:30-0400 Systolic blood pressure 116 mm[Hg] MD Gina Javier Work Phone: [facility] 01-31-2023 16:45-0400 Body temperature 98 [degF] MD Gina Javier Work Phone: [facility] 01-31-2023 16:15-0400 Inhaled oxygen flow rate 10 L/min MD Gina Javier Work Phone: [facility] 01-31-2023 12:49-0400 Body height 160.02 cm MD Gina Javier Work Phone: [facility] 01-31-2023 12:49-0400 Body mass index (BMI) [Ratio] 26.5 kg/m2 MD Gina Javier Work Phone: [facility] 01-31-2023 12:49-0400 Body weight 68 kg MD Gina Javier Work Phone: [facility] 01-27-2023 15:30-0400 Body height 162.56 cm Edison Nemaha II Other [facility] Other 01-27-2023 15:30-0400 Body mass index (BMI) [Ratio] 25.44 kg/m2 Edison Nemaha II Other [facility] Other 01-27-2023 15:30-0400 Body weight 67.22 kg Edison Spenceisle II Other [facility] Other 07-05-2022 12:15-0400 Body height 162.56 cm Sawyer Greer Other [facility] Other 01-26-2022 10:40-0400 Body height 162.56 cm Santiago Cano Other [facility] Other 01-26-2022 10:40-0400 Body mass index (BMI) [Ratio] 36.9 kg/m2 Santiago Cano Other [facility] Other 01-26-2022 10:40-0400 Body weight 97.52 kg Santiago Cano Other [facility] Other 07-24-2021 13:31-0400 Body temperature 97.88 [degF] Jerry QUIÑONEZ [facility] [place] 07-10-2021 14:00-0400 Body temperature 97.34 [degF] Jerry QUIÑONEZ [facility] [place] 11-19-2020 08:27-0400 Body temperature 98.1 [degF] Mejia Griffin MD Work Phone: [facility] [facility] Work Phone: 11-19-2020 08:27-0400 Diastolic blood pressure 78 mm[Hg] Mejia Griffin MD Work Phone: [facility] Work Phone: 11-19-2020 08:27-0400 Heart rate 109 /min Mejia Griffin MD Work Phone: [facility] Work Phone: 11-19-2020 08:27-0400 SaO2% (BldA) [Mass fraction] 98 % Mejia Griffin MD Work Phone: [facility] [facility] Work Phone: 11-19-2020 08:27-0400 Systolic blood pressure 118 mm[Hg] Mejia Griffin MD Work Phone: [facility] Work Phone: 11-19-2020 04:29-0400 Respiratory rate 18 /min Mejia Griffin MD Work Phone: [facility] [facility] Work Phone: 11-18-2020 08:30-0400 Body height 162.6 cm Mejia Griffin MD Work Phone: [facility] [facility] Work Phone: 11-18-2020 08:30-0400 Body mass index (BMI) [Ratio] 34.84 kg/m2 Mejia Griffin MD Work Phone: [facility] [facility] Work Phone: 11-18-2020 08:30-0400 Body weight 92.08 kg Mejia Griffin MD Work Phone: [facility] [facility] Work Phone: 09-09-2020 14:57-0400 Diastolic blood pressure 75 mm[Hg] Bennett 2 [facility] [facility] Work Phone: 09-09-2020 14:57-0400 Heart rate 93 /min Bennett 2 [employer] [facility] Phone: 09-09-2020 14:57-0400 Respiratory rate 16 /min Bennett 2 [employer] Phone: 09-09-2020 14:57-0400 Systolic blood pressure 169 mm[Hg] Bennett 2 [facility] Work Phone: 09-09-2020 12:41-0400 Body height 162.6 cm Bennett 2 [employer] Phone: 09-09-2020 12:41-0400 Body mass index (BMI) [Ratio] 34.67 kg/m2 [facility] Phone: 09-09-2020 12:41-0400 Body weight 91.63 kg [facility] Phone: 09-09-2020 12:41-0400 SaO2% (BldA) [Mass fraction] 99 % [facility] Phone: Encounters Encounter Date Encounter Type Care Provider Facility Start: 02-02-2024 End: 02-02-2024 ambulatory MD Gina Javier Work Phone: [facility] Work Phone: Start: 02-02-2024 End: 02-02-2024 Patient encounter procedure MD Gina Javier Work Phone: [facility] Work Phone: Start: 04-20-2023 Office outpatient vi sit 15 minutes Edison Veronica II [facility] Start: 04-20-2023 End: 04-20-2023 Patient encounter procedure MD Gina Javier Work Phone: [facility] Start: 04-20-2023 End: 04-20-2023 ambulatory MD Gina Javier Work Phone: [facility] Work Phone: Start: 03-17-2023 End: 03-17-2023 Patient encounter procedure MD Gina Javier Work Phone: [facility] Start: 03-17-2023 End: 03-17-2023 ambulatory MD Gina Javier Work Phone: [facility] Work Phone: Start: 03-03-2023 (Post-Op) Post-Op Edison Nemaha II [facility] Start: 03-03-2023 End: 03-03-2023 ambulatory Edison Jeremías II Other [facility] Other Start: 02-16-2023 (Post-Op) Post-Op Edison Nemaha II [facility] Start: 02-16-2023 End: 02-16-2023 ambulatory Edison Nemaha II Other [facility] Other Start: 02-10-2023 (Post-Op) Post-Op Edison Nemaha II [facility] Start: 02-10-2023 End: 02-10-2023 ambulatory Edison Nemaha II Other [facility] Other Start: 02-09-2023 End: 02-09-2023 ambulatory Edison Jeremías II Other [employer] Other Start: 02-09-2023 Telephone encounter Edison Nemaha II [facility] Start: 01-31-2023 End: 01-31-2023 Admission to same day surgery center MD Gina Javier Work Phone: [facility] Start: 01-31-2023 End: 01-31-2023 ambulatory MD Gina Javier Work Phone: [facility] Work Phone: Start: 01-27-2023 End: 01-27-2023 Discharged Recurring MD Gina Javier Work Phone: [facility] [place] Start: 01-27-2023 End: 01-27-2023 ambulatory MD Gina Javier Work Phone: [employer] Other Start: 01-27-2023 Patient encounter procedure Edison Pastorle II [facility] Start: 01-21-2023 (Prolonged) Prolonge d Services Edison Nemaha II [facility] Start: 01-21-2023 End: 01-21-2023 ambulatory Edison Veronica Other [employer] Other Start: 01-20-2023 End: 01-20-2023 ambulatory MD Gina Javier Work Phone: [facility] Work Phone: Start: 01-20-2023 End: 01-20-2023 Patient encounter procedure MD Gina Javier Work Phone: [facility] Work Phone: Start: 12-24-2022 End: 12-24-2022 ambulatory MD Gina Javier Work Phone: [facility] Work Phone: Start: 12-24-2022 End: 12-24-2022 Patient encounter procedure MD Gian Javier Work Phone: [facility] Start: 12-24-2022 End: 12-24-2022 ambulatory MD Gina Javier Work Phone: [facility] Work Phone: Start: 12-24-2022 End: 12-24-2022 Patient encounter procedure MD Gina Javier Work Phone: [facility] Start: 12-16-2022 End: 12-16-2022 ambulatory Sawyer Greer Other [employer] Other Start: 12-16-2022 Office outpatient vi sit 25 minutes Sawyer Greer [facility] Start: 12-16-2022 Telephone encounter Sawyer Greer [facility] [place] Start: 09-09-2022 End: 09-10-[address] GINA JAVIER . Facility:[facility] Start: 08-24-2022 End: 08-24-2022 Patient encounter procedure MD Gina Javier Work Phone: [facility] Start: 08-24-2022 End: 08-24-2022 ambulatory MD Gina Javier Work Phone: [facility] Work Phone: Start: 08-24-2022 Office outpatient vi sit 25 minutes Sawyer Greer [facility] [place] Start: 08-16-2022 (Procedure) Short Sawyer Greer [facility] Start: 08-16-2022 End: 08-16-2022 ambulatory Sawyer Greer Other [employer] Other Start: 08-04-2022 End: 08-04-2022 ambulatory Sawyer Greer Other [employer] Other Start: 08-04-2022 Office outpatient vi sit 25 minutes Sawyer Greer [facility] Start: 07-11-2022 Encounter for genera l adult medical examination without abnormal findings DR GINA JAVIER . [facility] Start: 07-08-2022 End: 07-09-[address] GINA JAVIER . Facility:[facility] Start: 07-08-2022 End: 07-09-2022 Encounter for general adult medical examination without abnormal findings DR GINA JAVIER . Facility:[facility] Start: 07-05-2022 End: 07-05-2022 ambulatory Sawyer Greer Other [facility] Other Start: 07-05-2022 Office outpatient vi sit 25 minutes Sawyer Greer [facility] [place] Start: 04-19-[address] GINA JAVIER . Facili ty:[facility] Start: 02-23-2022 End: 02-23-2022 ambulatory Sawyer Barromana Other [facility] Other Start: 02-23-2022 Office outpatient vi sit 15 minutes Sawyer Greer [facility] Start: 02-15-2022 (Procedure) Short Sawyer Greer [facility] Start: 02-15-2022 End: 02-15-2022 ambulatory Sawyer Barromana Other [facility] Other Start: 02-01-2022 End: 02-01-2022 ambulatory Sawyer Greer Other [facility] Other Start: 02-01-2022 Office outpatient ne w 45 minutes Sawyer Greer [facility] [place] Start: 02-01-2022 Telephone encounter Sawyer MARRERO G [employer] Start: 01-26-2022 End: 01-26-2022 ambulatory Santiago Cano Other [facility] Other Start: 01-26-2022 Office outpatient ne w 45 minutes Santiago Cano [facility] Start: 12-24-2021 End: 12-25-[address] GINA JAVIER . Facility:[facility] Start: 11-26-2021 End: 11-27-[address] GINA JAVIER . Facility:[facility] Start: 07-24-2021 End: 07-24-2021 Patient encounter procedure Jerry QUIÑONEZ [facility] [place] Start: 07-10-2021 End: 07-10-2021 Patient encounter procedure Jerry QUIÑONEZ [facility] [place] Start: 11-18-2020 End: 11-19-2020 Evaluation and management of inpatient GINA JAVIER [facility] Start: 11-18-2020 End: 11-21-2020 ambulatory MEJIA GRIFFIN [facility] Start: 11-18-2020 End: 11-19-2020 Evaluation and management of inpatient Mejia Griffin MD Work Phone: [facility] Comment on above: Post-op pain (Primar y Dx); Pain; Muscle spasm Start: 11-18-2020 End: 11-20-2020 Subsequent hospital visit by physician Mejia Griffin MD Work Phone: [facility] Comment on above: Pain Start: 09-09-2020 End: 09-12-2020 ambulatory GINA M Geoff [facility] Start: 09-09-2020 End: 09-11-2020 Subsequent hospital visit by physician Andres Mri Room 2 [facility] MRI Comment on above: Cervical spondylosis with myelopathy; Cervical stenosis of spine; Cervical radiculopathy Procedures Date Procedure Procedure Detail Performing Clinician Start: 02-02-2024 Plain X-ray of left hip MD Gina Javier Work Phone: Start: 04-20-2023 Plain X-ray of left hip MD Gina Javier Work Phone: Start: 03-17-2023 Plain X-ray of left hip MD Gina Javier Work Phone: Start: 01-31-2023 Plain X-ray of left hip MD Gina Javier Work Phone: Start: 01-31-2023 Plain X-ray of left hip MD Gina Javier Work Phone: Start: 01-31-2023 Total replacement of left hip joint MD Gina Javier Work Phone: Start: 12-24-2022 Methicillin resistan t Staphylococcus aureus culture MD Gina Javier Work Phone: Start: 12-24-2022 Plain X-ray of left hip MD Gina Javier Work Phone: Start: 07-01-2021 Repair of right ingu inal hernia Jerry QUIÑONEZ Start: 11-19-2020 Excision of cervical intervertebral disc Jerry CASASKrysta Comment on above: C5-C7 Start: 11-18-2020 Fluoroscopy during operation Mejia Griffin MD Work Phone: Start: 09-09-2020 Mri spinal canal cer vical w/o contrast matrl Mejia Griffin MD Work Phone: Biopsy of breast Jerry YESSENIA L Comment on above: right section Jerry NIL L Colonoscopy Jerry QUIÑONEZ Exploratory laparotomy Luis suman QUIÑONEZ Total abdominal hysterectomy with bilateral salpingo-oophorectomy Jerry CASASKrysta Plan of Treatment Date Care Activity Detail Author Start: 02-02-2024 Plain X-ray of left hip XR hip LT min 2V(w/wo pelvis)* [facility] Start: 02-02-2024 XR Hip - left 2 Views F [facility] Start: 01-31-2023 [facility] Start: 01-31-2023 [facility] Start: 01-31-2023 Physical therapy procedure [facility] Start: 01-20-2023 [facility] Start: 12-24-2022 MRSA Culture MRSA Culture [facility] Start: 12-17-2020 Influenza vaccination [employer] Work Phone: Start: 12-05-2020 End: 12-05-2020 Patient encounter procedure 12/05/2020 Office Visit Neurosurgery Mejia Griffin MD [address] [facility] [address] [place] [address] [phone] [facility] Start: 09-19-2020 End: 09-19-2020 Patient encounter procedure 09/19/2020 Office Visit Neurosurgery Mejia Griffin MD [address] [place] [address] [phone] [facility] Start: 12-13-2019 Screening for malign ant neoplasm of breast Breast cancer screen [employer] Phone: Start: 12-13-2019 Screening for malign ant neoplasm of colon Colon cancer screen colonoscopy [employer] Phone: Start: 12-13-2019 Shingles Vaccine (1 of 2) Shingles Vaccine (1 of 2) [employer] Phone: Start: 2014 Screening for malign ant neoplasm of colon Colon cancer screen colonoscopy [employer] Phone: Start: 2009 Diabetes screen Diabetes screen [employer] Phone: Start: 1990 Screening for malign ant neoplasm of cervix Cervical cancer screen [employer] Phone: Start: 1988 DTaP/Tdap/Td vaccine (1 - Tdap) DTaP/Tdap/Td vaccine (1 - Tdap) [employer] Phone: Start: 1984 HIV screening HIV screen [facility] Work Phone: Start: 1981 COVID-19 Vaccine (1) COVID-19 Vaccin e (1) [employer] Phone: Start: 12-13-1979 [facility]id panel [facility] Work Phone: Start: 1969 Creatinine measurement Creatinine mo nitoring [employer] Phone: Start: 1969 Hepatitis C screening Hepatitis C sc reen [employer] Phone: Start: 1969 Potassium monitoring Potassium monit oring [employer] Phone: Continuous pulse oximetry Pulse oximetry, continuous Respiratory Care Routine Every 4hr until discontinued starting 11/18/2020 [employer] Phone: Comment on above: Every 4hr until disc ontinued starting 11/18/2020 Cotinine [Mass/volum e] in Serum or Plasma [facility] End: 11-18-2020 Fluoroscopy during operation FLUORO FOR SURGICAL PROCEDURES Imaging Routine Pain Once for 1 Occurrences starting 11/18/2020 until 11/18/2020 [employer] Phone: Comment on above: Once for 1 Occurrenc es starting 11/18/2020 until 11/18/2020 Fluoroscopy during operation FLUORO FOR SURGICAL PROCEDURES Imaging Routine Pain 11/18/2020 1:30 PM EDT [facility] [facility] Work Phone: Glucose measurement estimated from glycated hemoglobin [facility] Methicillin resistan t Staphylococcus aureus [Presence] in Unspecified specimen by Organism specific culture [facility] Nicotine [Mass/volum e] in Serum or Plasma [facility] Oxygen therapy [Mini mum Data Set] [employer] Work Phone: Comment on above: Daily until disconti nued starting 09/09/2020 Daily until disconti nued starting 11/18/2020 Phase I & II - meter ed glucose Phase I & II - metered glucose Point of Care Testing Routine As Needed until discontinued starting 09/09/2020 [employer] Phone: Comment on above: As Needed until disc ontinued starting 09/09/2020 Spirometry panel Incentive joaquín metry Respiratory Care Routine Every 2hr while awake until discontinued starting 09/09/2020 [employer] Phone: Comment on above: Every 2hr while awak e until discontinued starting 09/09/2020 Surgical Pathology [facility] Work Phone: Comment on above: Release Upon Orderin g for 1 Occurrences starting 11/18/2020 End: 11-18-2020 Surgical Pathology Surgical Pathology Lab Routine Once for 1 Occurrences starting 11/18/2020 until 11/18/2020 [employer] Phone: Comment on above: Once for 1 Occurrenc es starting 11/18/2020 until 11/18/2020 [facility] Immunizations Immunization Date Immunization Notes Care Provider Fa cility NEGATED: Highlighted row has not occurred!06-10-2021 influenza virus vaccine, unspecified formulation Jerry QUIÑONEZ [facility] [place] Payers Date Payer Category Payer Self-pay [id number] 2020 Private Health Insurance [id number] 2020 Private Health Insurance [id number] 1969 Unknown [id number] 1969 Unknown [id number] 1969 Unknown [id number] 1969 Unknown [id number] 1969 Unknown [id number] 1969 Unknown [id number] 1969 Unknown [id number] 1969 Unknown [id number] [id number] 1960 Self-pay [id number] [facility] [id number] Private Health Insurance [employer] [id number] Unknown [id number] Unknown [id number] Unknown [id number] Social History Date Type Detail Facility Start: 09-02-2020 End: 01-31-2023 Tobacco smoking status INIS Never smoker [employer] Phone: Start: 09-02-2020 End: 11-20-2020 Tobacco use and exposure Never used [facility] Start: 1970 Sex Assigned At Not on file [facility] [employer] Phone: Start: 11-07-2020 History 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 5 [employer] Phone: Start: 11-07-2020 History SDOH Food Worry 1 [employer] Phone: Start: 1970 Sex Assigned At Female [facility] [employer] Phone: Exposure to SARS-CoV -2 (event) Not sure [facility] Tobacco smoking status Never Gener [facility] [place] Sex Assigned At Female Genera l Surgery [employer] [facility] Procedure Code Equipment Code Equipment Original Text Equipment Identifier Dates Arthroplasty, hip, total, anterior approach Acetabular shell [id number] FDA Start: 01-31-2023 Arthroplasty, hip, total, anterior approach Orthopaedic bone screw, non-bioabsorbable, sterile ()[id number] FDA Start: 01-31-2023 Arthroplasty, hip, total, anterior approach Orthopaedic bone screw, non-bioabsorbable, sterile ()[id number] FDA Start: 01-31-2023 Arthroplasty, hip, total, anterior approach Ceramic femoral head prosthesis ()[id number] FDA Start: 01-31-2023 Arthroplasty, hip, total, anterior approach Coated hip femur prosthesis, modular ()[id number] FDA Start: 01-31-2023 Arthroplasty, hip, total, anterior approach Non-constrained polyethylene acetabular liner ()[id number] FDA Start: 01-31-2023 Cage Spnl W11xh8 xl14mm Lum Lord Intbdy Fus [employer] Cc - [id number] Start: 11-18-2020 Graft Spnl W11xh [id number] Corticocancellous Lord Triad - [id number] Start: 11-18-2020 Screw Spnl L7mm Dia2.6mm Lum Lat Mass Leverage Lfs [id number] Start: 11-18-2020 Plate Spnl L42mm Ant Cerv 2 Lev Translational [place] [facility] [id number] Start: 11-18-2020 Screw Spnl L13mm Dia4mm Ant Cerv [facility] Melanie Ang Compr [place] [facility] [id number] Start: 11-18-2020 Screw Spnl L5mm [...] Z96.642) Apr, Other [facility] on 01/31/2023 Overall she is doing great. [...] to call with any questions or concerns. [employer] Other 11-16-2023 Evaluation note* Encounter Date Diagnosis [...] weeks with x-rays of the left hip. [employer] [facility] Other 11-01-2023 Evaluation note* Encounter Date Diagnosis Assessment Notes Treatment Notes Treatment Clinical Notes Feb, S/P total left hip arthroplasty (ICD-10 - Z96.642) Feb, Aftercare following joint replacement surgery (ICD-10 - Z47.1) Feb, Presence of left artificial hip joint (ICD-10 - Z96.642) Feb, Other [facility] L JILLIAN at [facility] on 01/31/2023 Overall patient is doing very [...] off narcotic pain medication. They can take [id number] anti-inflammatories as needed for assistance with swelling [...] examination and x-rays of the left hip. [facility] Other 10-26-2023 Evaluation note* Encounter Date Diagnosis [...] to help calm down this allergic reaction. [employer] [facility] Other 10-12-2023 Evaluation note* Encounter Date Diagnosis Assessment Notes Treatment Notes Treatment Clinical Notes Jan, Primary osteoarthritis of left hip (ICD-10 - M16.12) Jan, Age-related osteoporosis without current pathological fracture (ICD-10 - M81.0) Jan, Other custodial (current) drug therapy (ICD-10 - Z79.899) Jan, Other 1. Left JILLIAN Home Medications - DVT prophylaxis: Aspirin - NSAID: Celebrex - Disposition: Same-day discharge Joints Meeting Checklist - Pharmacy: [facility] to bed - Approach/Technique: anterior, [place] bed - Implants: [employer]venir Complete/G7; - Anesthesia: general vs spinal - Blocks: Fascia iliaca - Preop Antibiotics: Ancef - TXA: yes-systemic - Positioning/OR Bed: supine on [place] bed - Intraop X-ray: yes - Fraser: [...] above surgery. OARRS report generated and reviewed. [facility] Other 10-06-2023 Evaluation note* Encounter Date Diagnosis [...] patient could proceed with surgery safely. The funeral service manager was vital for surgery timing and [...] plans. Prolonged services time spent: 32 minutes [employer] Other 08-31-2023 Evaluation note* Encounter Date Diagnosis [...] note writ ten by Nino Reese MA, Structural Steel Fitter. Edited and approved by Dr. Sawyer Greer MD. [employer] [facility] Other 08-31-2023 Evaluation note* Encounter Date Diagnosis Assessment Notes Treatment Notes Treatment Clinical Notes Nov, Osteoarthritis of left hip (ICD-10 - M16.12) [employer] [facility] Other 05-09-2023 Evaluation note* Encounter Date Diagnosis [...] note writ ten by Jcarlos Jovel LPN, Structural Steel Fitter. Edited and approved by Dr. Sawyer Greer MD. [employer] [facility] Other 04-19-2023 Evaluation note* Encounter Date Diagnosis [...] note writ ten by Jcarlos Jovel LPN, Structural Steel Fitter. Edited and approved by Dr. Sawyer Greer MD. [employer] [facility] Other 03-20-2023 Evaluation note* Encounter Date Diagnosis [...] note writ ten by Jcarlos Jovel LPN, Structural Steel Fitter. Edited and approved by Dr. Sawyer Greer MD. [employer] Other 11-08-2022 Evaluation note* Encounter Date Diagnosis [...] note writ ten by Nino Reese MA, Structural Steel Fitter. Edited and approved by Dr. Sawyer Greer MD. [employer] Other 10-17-2022 Evaluation note* Encounter Date Diagnosis [...] note writ ten by Jcarlos Jovel LPN, Structural Steel Fitter. Edited and approved by Dr. Sawyer Greer [...] negative findings were considered in medical decision-making. [employer] Other 10-11-2022 Evaluation note* Encounter Date Diagnosis [...] inflammatory. She also had a mildly positive Daniel sign and has history of left groin [...] be able to perform normal work duties. [employer] Other 02-23-2022 NoteChief Complaint consultation for right [...] 06/10/2021 Family History ALS (more content not included)...[facility] ClinicComment [facility] above: Result Comment: Electronically Signed By: KHANG BARTH, Jerry Warren\Date and Time Signed: 06/10/21 16:23 [id number] Hospital Discharge instructions* Instructions* Nemo Calixto APRN - ORDNANCE HANDLER - 11/19/2020 You may shower on Tuesday [...] drive until follow up documented in this [facility] Work Phone: 1(748) 554-692208-04-2021 History of Present illness Narrative* Krysten Villegas OTR/Krysta - 11/19/2020 10:42 AM EDT [facility] OCCUPATIONAL THERAPY EVALUATION - ACUTE NAME: Ana Palmer : 1970 (49 y.o.) CODE STATUS: Full Code Room: [place] [address] Date of Service: 11/19/2020 Patient Diagnosis(es): Cervical [...] Ambulation Assistance: Independent Transfer Assistance: Independent Active Video Production Engineer: Yes Occupation: Unemployed 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 to work when [...] chair Goals: Patient goals : go home terminal operator goals terminal operator goal 1: bed mobility with indep FDC goal 2: Functional transfers with indep terminal operator goal 3: Amb 100ft with 2ww and indep FDC goal 4: 4 steps without handrail and SBA to enter/exit home AMPA (6 CLICK) BASIC MOBILITY AM-PAC Inpatient Mobility [...] to accomplish the task documented [facility] this [facility] Work Phone: 1(883) 919-577008-03-2021 NoteIntraprocedural fluoroscopic support has been provided. Please refer to the procedure report.[employer] Phone: [phone]) [phone] NoteEXAMINATION: FLUORO FOR SURGICAL PROCEDURES CLINICAL HISTORY: R52 Pain ICD10 COMPARISONS: None available. FINDINGS: Fluoroscopic assistance was provided during ACDF, C5-6 and C6-7 The total radiationtime is 31.9 seconds, radiation dose is 3.62mGy.[employer] Phone: 1(321) 354-654908-03-2021 NoteEXAMINATION: FLUORO FOR SURGICAL PROCEDURES CLINICAL HISTORY: R52 Pain ICD10 COMPARISONS: None available. FINDINGS: Fluoroscopic assistance was provided during ACDF, C5-6 and C6-7 The total radiation time is 31.9 seconds, radiation dose is 3.62mGy. IMPRESSION: Intraprocedural fluoroscopic support has been provided. Please refer to the procedure report. Interpreted by: Leandro Spaulding MD Signed by: Leandro Spaulding MD 11/18/20 Final resultHighlands Behavioral Health SystemEvaluation + Plan note Future Appointments Appointment Date:07/24/2021 01:20:00 PM Scheduled Provider:Jerry QUIÑONEZ MD Location:[facility] Appointment Type: Post Op 15 General Surgery [place] Evaluation note* Diagnosis Cervical spondylosis with myelopathy Cervical stenosis of spine Spinal stenosis in cervical region Cervical radiculopathy Brachial neuritis or radiculitis nos documented in this encounter [employer] Phone: evalljtogo note* Diagnosis Post-op pain- Primary Other acute postoperative pain Pain Generalized pain Muscle spasm Spasm of muscle Cervical cord compression with myelopathy (HCC) Unspecified disease of spinal cord documented in this encounter [employer] Phone: evaluation note* Diagnosis Pain Generalized pain documented in this encounter [employer] Phone: [email or web address] noteNo InformationNort [employer] Other Evaluation noteNo assessment information available [facility] Work Phone: Evaluation note* Diagnosis Onset Date Resolution Status Aftercare following left hip joint replacement surgery acute [facility] Work Phone: Hiswvpg general Narrative - Reported* Type Description Date Medical History Arthritis Medical History high cholesterol Medical History migraine headache Medical History chronic depression Medical History anxiety Surgical History C section Surgical History hernia repair Surgical History hysterectomy Surgical History neck biopsy Hospitalization History see surgical hx [employer] Other Hisxbeo general Narrative - Reported* Type Description Date Medical History Arthritis Medical History high cholesterol Medical History migraine headache Medical History chronic depression Medical History anxiety Surgical History C section Surgical History hernia repair Surgical History hysterectomy Surgical History neck biopsy Surgical History LTHA 01/31/2023 Hospitalization History see surgical hx [employer] Other Hospital course Narrative No data available for this section [facility] [place] [facility] Discharge instructions* Attachments The following attachments cannot be sent through Care Everywhere. * Sedation: General Info (Kinyarwanda) documented in this [facility] Work Phone: Hospital Discharge instructions No data available for this section [facility] [place] [facility] Discharge instructions Additional Instructions Joint Replacement Discharge Instructions Your safety during your recovery process is important to us. Please seek immediate emergency care if you have sudden chest pain or shortness of breath. Additionally, please call our office at [phone] should any of the following occur: wound [...] to walk without your walker and your regular senior care provider until the therapist checks you the following [...] and/or laxatives as directed. You may take oosr-dkk-fpuiglp Benadryl if itching occurs without a rash or hives. Icing and elevation will help relieve pain as well, do not underestimate the power of ice and elevation. We do recommend that you stop taking narcotic pain medications by 4-6 weeks after surgery and if necessary, continue to use anti-inflammatory medications such as Mobic (meloxicam), Celebrex (celecoxib), or an ofka-hta-rffmwst medication (Aleve, Motrin, Ibuprofen, etc). Driving an [...] feel free to call our office at [phone]. You are a priority of ours and we will not be upset with you if you call. We would much rather you call to confirm aspects of your recovery process as opposed to possibly hindering your recovery with inappropriate care. We are committed to providing you with the best care possible. Edison Veronica II, MD Updated 07/02/2022[facility] Work Phone: Reason for Referral Status Reason Specialty Diagnoses / Procedures Referre d By Contact Referred To Contact Closed Radiology Diagnoses Cervical spondylosis with myelopathy Cervical stenosis of spine Cervical radiculopathy Procedures MRI CERVICAL SPINE WO CONTRAST Mejia Griffin MD [address] [address] Status Reason Specialty Diagnoses / Procedures Referre d By Contact Referred To Contact Closed Radiology Diagnoses Pain Procedures Fluoro For Surgical Procedures Mejia Griffin MD [address] [facility] [address] [place] [address] Reason *Waiting for appt Evaluate and Treat Sacroiliac and Trochanteric Bursitis L Hip Diagnosis 1 Inflammation of left sacroiliac joint (M46.1) Diagnosis 2 Greater trochanteric bursitis of left hip (M70.62) Referral Organization [facility] Ne urosurgery Referring Provider First Name Santiago Referring Provider Last Name Jerome Referring Provider Specialty Neurologica l Surgery Referred Organization [facility] [place] Referred Provider Sawyer Greer Referred Address [address] [facility] [place],[address] Referred Provider Specialty Pain Medicin e Referral Priority Routine General Notes Nisa Zelaya 022 10:44:35 AM >Received today and sent P2P Reason severe left hip/ helen in/ thigh pain Diagnosis 1 Osteoarthritis of le ft hip (M16.12) Referral Organization [facility] [place] Referring Provider First Name Sawyer Referring Provider Last Name Zoey Referring Provider Specialty Pain Medici ne Referred Organization [facility] Referred Provider Edison Veronica II Referred Address [address] [facility] [place],[address] Referred Provider Specialty Orthopedic S urgery Referral Priority Routine Summary Purpose Family History No Family History Records Found Relationship Condition Age at Onset Recorded Date/T maddison father Motor neuron disease Unknown Hypertension Unknown Hyperlipidemia Unknown Advance Directives No Advanced Directives Records FoundLatest Code Status on File Code Status Date [...] LTH pre op Hip pain Z47.1 Z96.642 Chief Complaint 1 YEAR Z47.1 - Aftercare following joint replacement surg Reason for Visit Aftercare following left hip joint replacement surgery Additional Source Comments Reason for Visit (unrecogniz ed section and content) Status Reason Specialty Diagnoses / Procedures Referre d By Contact Referred To Contact Closed Radiology Diagnoses Cervical spondylosis with myelopathy Cervical stenosis of spine Cervical radiculopathy Procedures MRI CERVICAL SPINE WO CONTRAST Mejia Griffin MD [address] [facility] [address] [place] [address] Status Reason Specialty Diagnoses / Procedures Re ferred By Contact Referred To Contact Diagnoses Cervical stenosis (uterine cervix) Cervical radiculopathy Spondylosis Cord compression (HCC) STENOSIS, RADICULOPATHY, SPONDYLOSIS, CORD COMPRESSION Procedures OR SPINAL FUSION,ANT,EA ADNL LEVEL OR LUMB SP FUSN,POST INTERBDY,EA ADDNL OR ARTHRODESIS ANT INTERBODY INC DISCECTOMY, CERVICAL BELOW C2 OR C-LAMINOPLASTY W/GRAFT/PLATE, 2 OR MORE ANTERIOR INSTRUMENTATION 2-3 VERTEBRAL SEGMENTS OR ALLOGRAFT FOR SPINE SURGERY ONLY STRUCTURAL OR ARTHRODESIS ANT INTERBODY INC DISCECTOMY CERVICAL BELOW C2 EA ADDL A.C.D.F (ANTERIOR CERVICAL DISKECTOMY FUSION) C5-6 C6-7 WITH POSTERIOR DECOMPRESSION LAMINOPLASTY SPANNING FROM C3-4-5-6/ 2 HRS/ 1 C-ARM. NUVASIVE/ S.S.E.P, PAT AT [facility] Mejia Griffin MD [address] [facility] [address] [place] [address] [facility] INFORMATION SOURCE (unrecogn ized section and content) DATE CREATED AUTHOR 11/09/2020 [facility] DATE CREATED AUTHOR AUTHOR'S ORGANIZ ATION 11/22/2020 [facility] [place] DATE CREATED AUTHOR AUTHOR'S ORGANIZ ATION 08/16/2021 [facility] DATE CREATED AUTHOR AUTHOR'S ORGANIZ ATION 09/24/2022 [facility] DATE CREATED AUTHOR AUTHOR'S ORGANIZ ATION 02/04/2024 [facility] Ordered Prescriptions (unrec ognized section and content) [...] 100 mL IVPB (COMPLETED) 2,000 mg, Intravenous, DOMESTIC VIOLENCE COUNSELOR TO O.R., 1 dose, On Tue11/18/20 at 0900, Pre-op (day of surgery) 1044 (Given - Provider: Joe Mantilla APRN - RUBBER CUTTER)1415 (Given - Provider: KATYA Dash CRNA) ceFAZolin [...] First dose on Tue11/18/20 at 2100, Post-op 2128 (Given - Provider: Ekaterina Stone LPN) 0829 (Given - Provider: Ro Cardona RN)2100 (Due) sodium chloride flush 0.9 % injection [...] Entry - Provider: Joe Mantilla APRN - RUBBER CUTTER - Comment: Switch to gravity)1114 (Canceled Entry - Provider: Joe Mantilla APRN - RUBBER CUTTER)1447 (Stopped - Provider: Joe Mantilla APRN - RUBBER CUTTER)1544 (New Bag - Provider: Juliane Alonso, DEV) [...] 1633, Post-op 1759 (Given - Provider: Wolf Coppola, DEV) fentaNYL (SUBLIMAZE) injection 50 mcg (CANCELED) 50 [...] PACU only 1543 (Given - Provider: Juliane Alonso RN)1636 (Given - Provider: Juliane Alonso RN) HYDROmorphone [...] Ekaterina Stone LPN)0829 (Given - Provider: Ro Cardona RN)1459 (Given - Provider: Ro Cardona RN) promethazine [...] Edison Veronica II, MD Attending Provider Active Team Status: Inactive Member Role Status Dates Gina Javier MD Primary Care Provider Active Start: February 02, 2024 End: February 02, 2024 Edison Veronica II, MD Attending Provider Active Start: February 02, 2024 End: February 02, 2024 Team Status: Active Member Role Status Dates Gina Javier MD Primary Care Provider Active Start: February 02, 2024 Edison Veronica II, MD Attending Provider Active Start: February 02, 2024 Goals (unrecognized section and content) Goals may [...] BE BASED ON THE PRIMARY CLINICAL RECORDS. [facility] [employer] provides no warranty or guarantee of the accuracy or completeness of information in this document.
== END 2024-03-13 19:51 | disposition home or self-care (01) ==
LOC: LAB 19:50
PROVIDERS: PCP Family Medicine; Visit Provider Obstetrics & Gynecology
DX: Z01.419 Encounter for gynecological examination (general) (routine) without abnormal findings (principal)
CPT/HCPCS: 87624; 88175

== ENCOUNTER 2024-04-30 07:13 | Outpatient (OUT) | payer BC, SELFPAY ==
--- NOTE | 2024-04-30 07:15 | MM_ITS ---
Patient Name: ANA PALMER MR#: [id number] : 1970 Exam Date: 04/30/2024 Ordering Doctor: DR Ze Pan . RADIOLOGY REPORT PROCEDURE: MM TOMOSYNTHESIS SCREENING BI COMPARISON: MG MAMM SCREEN 3D ADALBERTO CAD, 11/17/2020. MG MAMM SCREEN 3D ADALBERTO CAD, 09/09/2022. INDICATIONS: screening for malignant neoplasm of breast Calculator Name NCI Breast Cancer Risk Assessment Tool 5 Year Breast Cancer Risk 1.00% Lifetime Breast Cancer Risk 7.20% Personal Breast Cancer No Personal Ovarian Cancer No Treatments None Family Cancers Son with aml cancer at age 25. LOCATION: [facility] [place] BREAST COMPOSITION: The breasts are heterogeneously dense,which may obscure small masses. FINDINGS: DIAGNOSTIC CATEGORY 2--BENIGN FINDING. NO CHANGE FROM COMPARISON. Scattered benign-appearing nodules are present. Scattered benign-appearing calcifications are present. Scattered benign-appearing lymph nodes are present. RIGHT BREAST: No significant suspicious finding. LEFT BREAST: No significant suspicious finding. RECOMMENDATIONS: ROUTINE MAMMOGRAM AND CLINICAL EVALUATION IN 12 MONTHS. PLEASE NOTE: A NORMAL MAMMOGRAM DOES NOT EXCLUDE THE POSSIBILITY OF BREAST CANCER. A CLINICALLY SUSPICIOUS PALPABLE LUMP SHOULD BE BIOPSIED. Dictated by: Clifton Ponce MD on 04/30/2024 at 09:02 Approved by: Clifton Ponce MD on 04/30/2024 at 09:05
--- OUTSIDE RECORDS SUMMARY | 2024-04-30 07:16 | XMS_ITS | CCD ---
Author Organization [facility] Care Team Providers Care Trade Show Specialist Name Role Phone Gina Javier MD Primary Care Provider [phone] GINA JAVIER Primary Care Unavailable GINA JAVIER Referring Unavailable ELIAS, MEJIA H. Admitting Unavailable ELIAS, MEJIA H. Attending Unavailable ELIAS, MEJIA H. Attending Unavailable ELIAS, MEJIA H. Referring Unavailable GINA JAVIER Primary Care Unavailable GINA JAVIER Primary Care Unavailable ELIAS, MEJIA H. Referring Unavailable Gina Javier Primary Care Physician [phone] Santiago Cano Unavailable Sawyer Greer Unavailable MD Gina Javier Primary Care Provider [phone] MD Sawyer Greer Attending Provider DR GINA [...] Unavailable HOY ., DR FUENTES Attending Unavailable MD Gina Javier Primary Care Provider MD Edison Veronica II Attending Provider Edison Veronica II MD Gina Javier Primary Care Provider MD Edison Veronica II Attending Provider [phone] MD Gina Javier Primary Care Provider MD Edison Veronica II Attending Provider MD Gina Javier Primary Care Provider MD Edison Veronica II Attending Provider Edison Veronica II Admitting Unavailabl e Gina Javier Primary Care Unavailable Edison Veronica II Attending Unavailabl e Gina Javier Primary Care Unavailable Edison Veronica II Attending Unavailsarah e Edison Veronica II Admitting UnavailGina Fofana Primary Care Unavailable Edison Veronica II Attending Unavailabl e Edison Veronica II Admitting Unavailabl e Unavailable Primary Care Provider Unavailabl e Allergies Allergy Classification Reported Allergen(s) Allergy Type Date of Onset Reaction(s) Facility grepafloxacin (3 sources) grepafloxacin Drug Allergy 1 [facility] (12 sources) grepafloxacin; Translations: [grepafloxacin] Drug Allergy 1 Skin reaction (observable entity) [facility] [place] (2 sources) grepafloxacin Drug Allergy [facility] Repository (8 sources) Adhesive Tape; Translations: [adhesive tape] Propensity to adverse reactions 3 Itching [facility] (1 source) grepafloxacin Drug Allergy 3 [facility] Repository Medications Current Medications Medication Drug Class(es) [...] Start: 01-27-2023 take 1 tablet by demetrice twice daily Aspirin 81 81 MG 1 [...] oral capsule (7 sources) Start: 01-20-2023 take 07559 ug by mouth once daily Biotin Active 24997 MCG PO Daily January 20, 2023 12:00am [...] MG O ral for 1 Days Not-Taking/PRN estradiol 0.1 mg/ml vaginal cream (3 sources) Estrogen Start: 03-14-2024 End: 06-12-2024 estradiol (Estrace) 0.1 MG/GM vaginal cream Indications: Dyspareunia in female Insert 2 g into the vagina at bedtime At bedtime for one month, then at bedtime twice a week. 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 Take 1 tablet by mouth [...] 8:18am docusate sodium 50 mg / sennosides, fci 8.6 mg oral tablet (9 sources) Start: [...] Once a day Not-Taking/PRN polyethylene glycol 3350 97182 mg powder for oral solution (7 sources) [...] 02-02-2024 Chronic Other aftercare (1 source) Other sash sticker (current) drug therapy Episodic Other connective tissue [...] disease (1 source) Arthrodesis status Episodic Other female genital disorders (2 sources) Pain in female genitalia on intercourse; Translations: [Unspecified dyspareunia] 03-14-2024 Chronic Other nervous system disorders (3 sources) Spinal [...] conditions (not mental disorders or infectious disease) (6 sources) Encounter for screening mammogram for malignant neoplasm of breast; Translations: [Patient encounter status] Onset: 09-09-2022 Episodic Other skin disorders (2 sources) Alopecia areata 06-08-2021 Episodic Residual codes; unclassified (2 sources) Sleep apnea 06-08-2021 Chronic Residual codes; unclassified (2 sources) Pain; Translations: [Pain, unspecified] Episodic Residual codes; unclassified (1 source) Family history of leukemia; Translations: [FAMILY HISTORY OF LEUKEMIA] Onset: 09-12-2022 Episodic Residual codes; unclassified (2 sources) Menopause present; Translations: [Asymptomatic menopausal state] 03-13-2024 Episodic Spondylosis; intervertebral disc disorders; other back [...] Test Name Value Interpretation Reference Range Facility IGP,APTIMA HPV,AGE GDLNon AGE GDLN ACOG TESTING Note . [facility] Comment on above: TESTS RESULT FLAG UN ITS REF RANGE LAB Clinician Provided Cytology Information Source.............Vagina No. of containers..01 ThinPrep Vial Age Algo ACOG Darline... 30-65 01 FLAG LEGEND: L-Low Normal,H-High Normal,LL-Alert Low,HH-Alert High <-Panic Low,>-Panic High,A-Abnormal,AA-Critical Abnormal Performed at: 01 = [address] [address] Michelle Rahman MD, HPV APTIMA Negative Negative [facility] Comment on above: This nucleic acid am plification test detects fourteen high- risk HPV types (16,18,31,33,35,39,45,51,52,56,58,59,66,68) without differentiation. Performed at: =[facility] [address], [place] [id number] Workforce Development Assistant: Michelle Rahman MD, Phone: [phone] Performed at: [facility] [address] [address] [place], [place] [id number] Workforce Development Assistant: Chris Enriquez MD, Phone: [phone] IGP, APTIMA HPV, RFX 16/18,45 Note . [facility] Comment on above: TESTS RESULT FLAG UN ITS REF RANGE LAB DIAGNOSIS: 02 NEGATIVE FOR INTRAEPITHELIAL LESION OR MALIGNANCY. CELLULAR CHANGES ASSOCIATED WITH ATROPHY ARE PRESENT. 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 Specimen adequacy: 02 Satisfactory for evaluation. Performed by: 02 Chanelle Padilla, Lease Out Worker ([facility]) QC reviewed by: Sandor Wong, Lease Out Worker ([facility]) . 02 Note: Note 03 The Pap smear is a screening test designed to aid in the detection of premalignant and malignant conditions of the uterine cervix. It is not a diagnostic procedure and should not be used as the sole means of detecting cervical cancer. Both false-positive and false-negative reports do occur. Test Methodology: Note 03 This liquid based ThinPrep(R) pap test was screened with the use of an image guided system. HPV Genotype Reflex Note 02 Criteria not met, HPV Genotype not performed. FLAG LEGEND: L-Low Normal,H-High Normal,LL-Alert Low,HH-Alert High <-Panic Low,>-Panic High,A-Abnormal,AA-Critical Abnormal Performed at: 02 [facility] [place] [address] [address] [facility], [place] [address] Chris Enriquez MD, 03 WB [facility] [place] [address] [facility], [place] [address] Michelle Rahman MD, SPATULA-ALONE [facility] XR hip LT min 2V(w/wo pelvis )*on 02-02-2024 XR hip LT min 2V(w/wo pelvis)* [facility] [address] [place] [address] XRay Report Signed Patient: Ana Palmer MR#: [id number] : 1970 Acct:[id number] Age/Sex: 53 / F ADM Date: 02/02/24 Loc: [facility] Room: Type: [facility] Attending Dr: Edison Veronica II, MD Copies [...] Radha Godinez M.D.02/02/2024 9:56 AM Dictation Location: [place] [address] Transcribed By: [facility] 02/02/2456 Dictated By: Radha Godinez MD 02/02/2450 Signed By: 02/02/24955 Normal [facility] XR hip LT min 2V(w/wo pelvis )*on 04-20-2023 XR hip LT min 2V(w/wo pelvis)* [facility] [email or web address] Other XR hip LT min 2V(w/wo pelvis)* [facility] [address] [email or web address] Other XR hip LT min 2V(w/wo pelvis)* [address] [place] [address] [email or web address] Other XR hip LT min 2V(w/wo pelvis)* [place] [address] [email or web address] Other XR hip LT min 2V(w/wo pelvis)* XRay Report [email or web address] Other XR hip LT min 2V(w/wo pelvis)* Signed [email or web address] Other XR hip LT min 2V(w/wo pelvis)* Patient: Ana Palmer MR#: [id number] [email or web address] Other XR hip LT min 2V(w/wo pelvis)* : 1970 Acct:[id number] [email or web address] Other XR hip LT min 2V(w/wo pelvis)* Age/Sex: 52 / F ADM Date: 04/20/23 [email or web address] Other XR hip LT min 2V(w/wo pelvis)* Loc: [facility] Room: Type: [facility] [email or web address] Other XR hip LT min 2V(w/wo pelvis)* Attending Dr: Edison Veronica II, MD [email or web address] Other XR hip LT min 2V(w/wo pelvis)* Copies to: Edison Veronica MD [email or web address] Other XR hip LT min 2V(w/wo pelvis)* Ordering Provider: Edison Veronica MD [email or web address] Other XR hip LT min 2V(w/wo pelvis)* Date of Service: 04/20/23 [email or web address] Other XR hip LT min 2V(w/wo pelvis)* XR/XR hip LT min 2V(w/wo pelvis)*: S/P total left hip arthroplasty [email or web address] Other XR hip LT min 2V(w/wo pelvis)* AP PELVIS AND LEFT HIP - 2 views: [email or web address] Other XR hip LT min 2V(w/wo pelvis)* CLINICAL HISTORY: Follow-up left hip replacement [email or web address] Other XR hip LT min 2V(w/wo pelvis)* COMPARISON: 03/17/2023 [facility] Other XR hip LT min 2V(w/wo pelvis)* AP view of the pelvis and crosstable lateral view of the left hip were obtained. A left hip [email or web address] Other XR hip LT min 2V(w/wo pelvis)* prosthesis is again visualized. The hardware appears intact and unchanged from the prior. There is [email or web address] Other XR hip LT min 2V(w/wo pelvis)* no developing fracture or dislocation. There is minor sclerosis at the SI joints. There are no [email or web address] Other XR hip LT min 2V(w/wo pelvis)* significant soft tissue abnormalities. [email or web address] Other XR hip LT min 2V(w/wo pelvis)* XR/XR hip LT min 2V(w/wo pelvis)* [email or web address] Other XR hip LT min 2V(w/wo pelvis)* IMPRESSION: [email or web address] Other XR hip LT min 2V(w/wo pelvis)* STABLE LEFT HIP REPLACEMENT [email or web address] Other XR hip LT min 2V(w/wo pelvis)* Impression dictated by: Radha Godinez M.D.04/20/2023 11:47 AM [email or web address] Other XR hip LT min 2V(w/wo pelvis)* Dictation Location: [email or web address] Other XR hip LT min 2V(w/wo pelvis)* Transcribed By: SAAD 04/20/23 1142 [email or web address] Other XR hip LT min 2V(w/wo pelvis)* Dictated By: Radha Godinez MD 04/20/23 1149 [email or web address] Other XR hip LT min 2V(w/wo pelvis)* Signed By: [email or web address] Other XR hip LT min 2V(w/wo pelvis)* 04/20/23 4954 [email or web address] Other XR hip LT min 2V(w/wo pelvis)* [facility] [address] [place] [address] XRay Report Signed Patient: Ana Palmer MR#: [id number] : 1970 Acct:[id number] Age/Sex: 52 / F ADM Date: 04/20/23 Loc: [facility] Room: Type: [facility] Attending Dr: Edison Veronica II, MD Copies [...] Radha Godinez M.D.04/20/2023 11:47 AM Dictation Location: [facility]--10 Transcribed By: SAAD 04/20/23 1147 Dictated By: Radha Godinez MD 04/20/23 1146 Signed By: 04/20/23 1147 Normal [facility] XR hip LT min 2V(w/wo pelvis )*on 03-17-2023 XR hip LT min 2V(w/wo pelvis)* [facility] [address] [place] [address] [place] [address] XRay Report Signed Patient: Ana Palmer MR#: [id number] : 1970 Acct:[id number] Age/Sex: 52 / F ADM Date: 03/17/23 Loc: [facility] Room: Type: [facility] Attending Dr: Edison Veronica II, MD Copies [...] Wes Serrano M.D.03/17/2023 1:05 PM Dictation Location: [facility] Transcribed By: SAAD 03/17/23 1305 Dictated By: Wes Serrano DO 03/17/23 1304 Signed By: 03/17/23 1305 Normal [facility] Glucose Glucometer (BldC) [M ass/Vol]Ordered By: Edison Veronica on 01-31-2023 Glucose [Mass/Vol] 179 mg/dL [facility] Comment on above: Random Glucose Refer ence Range is dependent on time and content of last meal. Glucose of more than 200 mg/dL in a nonstressed, ambulatory subject supports the diagnosis of Diabetes Mellitus. Automated erythrocytes count in urine sediment (number/area)Ordered By: Edison Veronica on 01-20-2023 RBC Auto (Urine sed) [#/Area] None seen [HPF] 0-4 [facility] Automated leukocytes count i n urine sediment (number/area)Ordered By: Edison Veronica on 01-20-2023 WBC Auto (Urine sed) [#/Area] 3-4 [HPF] 0-4 [facility] Basophils Auto (Bld) [#/Vol] Ordered By: Edison Veronica on 01-20-2023 Basophils (Bld) [#/Vol] 0.0 10*3/uL 0.0-0.2 [facility] Basophils/100 WBC Auto (Bld) Ordered By: Edison Veronica on 01-20-2023 Basophils/100 WBC (Bld) 1.0 % . [facility] Bilirubin Test strip Ql (U)O rdered By: Edison Veronica on 01-20-2023 Bilirubin Ql (U) Negative Negative [facility] Calcium [Mass/volume] in Ser um or PlasmaOrdered By: Edison Veronica on 01-20-2023 Calcium [Mass/Vol] 9.2 mg/dL 8.6-10.3 [facility] Carbon dioxide, total [Moles /volume] in Serum or PlasmaOrdered By: Edison Veronica on 01-20-2023 CO2 [Moles/Vol] 29.0 mmol/L 21.0-31.0 [facility] Chloride [Moles/volume] in S sima or PlasmaOrdered By: Edison Veronica on 01-20-2023 Chloride [Moles/Vol] 103 mmol/L 98-107 [facility] Color Auto (U)Ordered By: Lilian Veronica on 01-20-2023 Color (U) Yellow Yellow [facility] Creatinine [Mass/volume] in Serum or PlasmaOrdered By: Edison Veronica on 01-20-2023 Creatinine [Mass/Vol] 0.67 mg/dL 0.60-1.20 [facility] Eosinophils Auto (Bld) [#/Vo l]Ordered By: Edison Veronica on 01-20-2023 Eosinophils (Bld) [#/Vol] 0.0 10*3/uL 0.0-0.45 [facility] Eosinophils/100 WBC Auto (Bl d)Ordered By: Edison Veronica on 01-20-2023 Eosinophils/100 WBC (Bld) 0.0 % . [facility] Erythrocyte distribution wid th Auto (RBC) [Ratio]Ordered By: Edison Veronica on 01-20-2023 Erythrocyte distribution width (RBC) [Ratio] 14.0 % 11.9-15.3 [facility] Fructosamine [Moles/volume] in Serum or PlasmaOrdered By: Edison Veronica on 01-20-2023 Fructosamine [Moles/Vol] 196 umol/L 0-285 [facility] Comment on above: Published reference interval for apparently healthysubjects between age 20 and 60 is 205 - 285 umol/L and in apoorly controlled diabetic population is 228 - 563 umol/Lwith a mean of 396 umol/L.Performed at: [place] [id number] Director: Lane Rivera PhD, Phone: [phone] Glucose [Mass/volume] in Ser um or PlasmaOrdered By: Edison Veronica on 01-20-2023 Glucose [Mass/Vol] 149 mg/dL 70-100 [facility] Comment on above: ADA recommended refe rence rangeRandom Glucose Reference Range is dependent on time and content of last meal. Glucose of more than 200 mg/dL in a nonstressed, ambulatory subject supports the diagnosis of Diabetes Mellitus. Hematocrit Auto (Bld) [Volum e fraction]Ordered By: Edison Veronica on 01-20-2023 Hematocrit (Bld) [Volume fraction] 36.6 % 34.0-46.4 [facility] Hemoglobin [Mass/volume] in BloodOrdered By: Edison Veronica on 01-20-2023 Hemoglobin (Bld) [Mass/Vol] 12.3 g/dL 11.8-15.4 [facility] Ketones Auto test strip (U) [Mass/Vol]Ordered By: Edison Veronica on 01-20-2023 Ketones (U) [Mass/Vol] Negative Negative [facility] Laboratory - UrinalysisOrder ed By: Edison Veronica on 01-20-2023 Hyaline casts LM Ql (Urine sed) None seen [LPF] 0-8 [facility] Leukocytes [#/volume] correc carola for nucleated erythrocytes in Blood by Automated counOrdered By: Edison Veronica on 01-20-2023 WBC corrected for nucl RBC Auto (Bld) [#/Vol] 3.5 10*3/uL 3.8-11.6 [facility] Lymphocytes Auto (Bld) [#/Vo l]Ordered By: Edison Veronica on 01-20-2023 Lymphocytes (Bld) [#/Vol] 1.3 10*3/uL 1.00-4.8 [facility] Lymphocytes/100 WBC Auto (Bl d)Ordered By: Edison Veronica on 01-20-2023 Lymphocytes/100 WBC (Bld) 36.7 % . [facility] MCH Auto (RBC) [Entitic mass ]Ordered By: Edison Veronica on 01-20-2023 MCH (RBC) [Entitic mass] 27.3 pg 24.7-34.3 [facility] MCHC Auto (RBC) [Mass/Vol]Or dered By: Edison Veronica on 01-20-2023 MCHC (RBC) [Mass/Vol] 33.5 g/dL 32.0-35.0 [facility] MCV Auto (RBC) [Entitic vol] Ordered By: Edison Veronica on 01-20-2023 MCV (RBC) [Entitic vol] 81.4 fL 80-100 [facility] Monocytes Auto (Bld) [#/Vol] Ordered By: Edison Veronica on 01-20-2023 Monocytes (Bld) [#/Vol] 0.3 10*3/uL 0.0-0.8 [facility] Monocytes/100 WBC Auto (Bld) Ordered By: Edison Veronica on 01-20-2023 Monocytes/100 WBC (Bld) 7.2 % . [facility] Neutrophils Auto (Bld) [#/Vo l]Ordered By: Edison Veronica on 01-20-2023 Neutrophils (Bld) [#/Vol] 2.0 10*3/uL 1.8-7.7 [facility] Neutrophils/100 WBC Auto (Bl d)Ordered By: Edison Veronica on 01-20-2023 Neutrophils/100 WBC (Bld) 55.1 % . [facility] Nitrite Test strip Ql (U)Ord ered By: Edison Veronica on 01-20-2023 Nitrite Ql (U) Negative Negative [facility] No Panel InformationOrdered By: Edison Veronica on 01-20-2023 Estimated GFR (CKD-EPI) > 60.0 mL/Min [facility] Creatinine Clearance (Chem N/A [facility] Nucleated erythrocytes [Pres ence] in Blood by Automated countOrdered By: Edison Veronica on 01-20-2023 Nucleated RBC Auto Ql (Bld) 0.1 /100{WBC} 0-0.5 [facility] Platelet mean volume Auto (B ld) [Entitic vol]Ordered By: Edison Veronica on 01-20-2023 Platelet mean volume (Bld) [Entitic vol] 8.2 fL 6.3-10.7 [facility] Platelets Auto (Bld) [#/Vol] Ordered By: Edison Veronica on 01-20-2023 Platelets (Bld) [#/Vol] 248 10*3/uL 150-450 [facility] Potassium [Moles/volume] in Serum or PlasmaOrdered By: Edison Veronica on 01-20-2023 Potassium [Moles/Vol] 4.3 mmol/L 3.5-5.1 [facility] Protein Auto test strip (U) [Mass/Vol]Ordered By: Edison Veronica on 01-20-2023 Protein (U) [Mass/Vol] Negative Negative [facility] RBC Auto (Bld) [#/Vol]Ordere d By: Edison Veronica on 01-20-2023 RBC (Bld) [#/Vol] 4.50 10*6/uL 3.60-5.00 [facility] Serum or plasma anion gap de terminationOrdered By: Edison Veronica on 01-20-2023 Anion gap [Moles/Vol] 11.3 mmol/L 6.0-15.0 [facility] Sodium [Moles/volume] in Ser um or PlasmaOrdered By: Edison Veronica on 01-20-2023 Sodium [Moles/Vol] 139 mmol/L 136-145 [facility] Specific gravity Auto test s trip (U) [Rel density]Ordered By: Edison Veronica on 01-20-2023 Specific gravity (U) [Rel density] 1.008 1.001-1.03 0 [facility] Squamous epithelial cells de tection in urine sediment by light microscopyOrdered By: Edison Veronica on 01-20-2023 Epithelial cells.squamous LM Ql (Urine sed) None seen [HPF] 0-2 [facility] Urea nitrogen [Mass/volume] in Serum or PlasmaOrdered By: Edison Veronica on 01-20-2023 Urea nitrogen [Mass/Vol] 16 mg/dL 7-25 [facility] Urine bacteria detection by automated methodOrdered By: Edison Veronica on 01-20-2023 Bacteria Auto Ql (U) None seen None Seen [facility] Urine clarity by refractomet ry automatedOrdered By: Edison Veronica on 01-20-2023 Clarity Refractometry automated (U) Clear Clear [facility] Urine glucose measurement by automated test strip (mass/volume)Ordered By: Edison Veronica on 01-20-2023 Glucose Auto test strip (U) [Mass/Vol] Normal mg/dL Normal [facility] Urine hemoglobin detection b y automated test stripOrdered By: Edison Veronica on 01-20-2023 Hemoglobin Auto test strip Ql (U) Negative Negative [facility] Urine leukocyte esterase det ection by automated test stripOrdered By: Edison Veronica on 01-20-2023 Leukocyte esterase Auto test strip Ql (U) 2+ Negative [facility] Urobilinogen Auto test strip (U) [Mass/Vol]Ordered By: Edison Veronica on 01-20-2023 Urobilinogen (U) [Mass/Vol] Normal mg/dL Normal [facility] WBC Auto (Bld) [#/Vol]Ordere d By: Edison Veronica on 01-20-2023 WBC (Bld) [#/Vol] 3.5 10*3/uL 3.8-11.6 [facility] pH Auto test strip (U)Ordere d By: Edison Veronica on 01-20-2023 pH (U) 6.0 [pH] 5.0-9.0 [facility] Albumin [Mass/volume] in Ser um or Plasma by Bromocresol green (BCG) dye binding methoOrdered By: Edison Veronica on 12-24-2022 Albumin BCG dye [Mass/Vol] 4.5 g/dL 3.5-5.7 [facility] Cotinine [Mass/volume] in Se rum or PlasmaOrdered By: Edison Veronica on 12-24-2022 Cotinine [Mass/Vol] <1.0 ng/mL . [facility] Comment on above: This test was develo ped and its performance characteristicsdetermined by [employer]. It has not been cleared orapproved by the Food and Drug Administration.Cotinine levels greater than 20.0 are consistent with theuse of tobacco or tobacco cessation products.Performed at: [address] [id number] Director: Antonio Dumont MD, Phone: [phone] Glucose mean value [Mass/vol ume] in Blood Estimated from glycated hemoglobinOrdered By: Edison Veronica on 12-24-2022 Average glucose Estimated from glycated hemoglobin (Bld) [Mass/Vol] 111 mg/dL [facility] Hemoglobin A1c percentageOrd ered By: Edison Veronica on 12-24-2022 HbA1c (Bld) [Mass fraction] 5.5 % 4.3-5.6 [facility] Comment on above: Increased risk for d iabetes: 5.7 - 6.4diabetes: >6.4glycemic control for adults with diabetes: <7.0 Hemoglobin [Mass/volume] in BloodOrdered By: Edison Veronica on 12-24-2022 Hemoglobin (Bld) [Mass/Vol] 13.0 g/dL 11.8-15.4 [facility] Nicotine [Mass/volume] in Se rum or PlasmaOrdered By: Edison Veronica on 12-24-2022 Nicotine [Mass/Vol] <1.0 ng/mL . [facility] Comment on above: This test was develo ped and its performance characteristicsdetermined by [employer]. It has not been cleared orapproved by the Food and Drug Administration.Nicotine levels greater than 2.0 are consistent with theuse of tobacco or tobacco cessation products. Vitamin D+Metabolites [Mass/ volume] in Serum or PlasmaOrdered By: Edison Veronica on 12-24-2022 Vitamin D+Metabolites [Mass/Vol] 50.9 ng/mL 30-100 [facility] Comment on above: VITAMIN D STATUS 25( [...] (Unsp spec) No MRSA Isolated 2 Days [facility] MRSA isol Org specific cx Ql (Unsp spec) No MRSA Isolated 2 Days [facility] MG MAMM SCREEN 3D ADALBERTO CADon 09-09-2022 MG MAMM SCREEN 3D ADALBERTO CAD Patient: ANA PALMER Exam Date: 09/09/2022 : 1970 Gender:F Ordering : DR GINA JAVIER . Admission #: [id number] Family : Order #: [id number] CLICK HERE TO VIEW EXAM RADIOLOGY REPORT [...] aml cancer at age 24. LOCATION: [facility] BREAST COMPOSITION: Heterogeneously dense,which may obscure [...] MD on 09/09/2022 at 12:06 Normal [facility] CBC AUTO DIFFon 07-08-2022 BASO # 0.0 103/ul Normal 0.0-0.1 [facility] Comment on above: Performed By: #### C BC #### [facility] [address] [place] [address] Dr. Juliana Brooks Basophils/100 WBC (Bld) 0.9 % Normal 0.2-2.0 [facility] Comment on above: Performed By: #### C BC #### [facility] [address] [place] [address] Dr. Juliana Brooks EO # 0.0 103/ul Normal 0.0-0.7 [facility] Comment on above: Performed By: #### C BC #### [facility] [address] [place] [address] Dr. Juliana Brooks Eosinophils/100 WBC (Bld) 0.4 % Critically low 0.9-7.0 [facility] Comment on above: Performed By: #### C BC #### [facility] [address] [place] [address] Dr. Juliana Brooks Erythrocyte distribution width (RBC) [Ratio] 16.3 % Critically high 11.0-15.0 [facility] Comment on above: Performed By: #### C BC #### [facility] [address] [place] [address] Dr. Juliana Brooks Hematocrit (Bld) [Volume fraction] 37.3 % Normal 36.0-48.0 [facility] Comment on above: Performed By: #### C BC #### [facility] [address] [place] [address] Dr. Juliana Brooks Hemoglobin (Bld) [Mass/Vol] 11.1 g/dL Critically low 12.0-16.0 [facility] Comment on above: Performed By: #### C BC #### [facility] [address] [place] [address] Dr. Juliana Brooks IG # 0.01 10e3/ul Normal 0.00-0.03 [facility] Comment on above: Performed By: #### C BC #### [facility] [address] [place] [address] Dr. Juliana Brooks IG % 0.2 % Normal 0.0-0.5 [facility] Comment on above: Performed By: #### C BC #### [facility] [address] [place] [address] Dr. Juliana Brooks LYMPH # 1.6 103/ul Normal 1.2-3.8 [facility] Comment on above: Performed By: #### C BC #### [facility] [address] [place] [address] Dr. Juliana Brooks Lymphocytes/100 WBC (Bld) 33.0 % Normal 20.5-60.0 [facility] Comment on above: Performed By: #### C BC #### [facility] [address] [place] [address] Dr. Juliana Brooks MANUAL DIFF REQ NO Normal [facility] Comment on above: Performed By: #### C BC #### [facility] [address] [place] [address] Dr. Juliana Brooks MCH (RBC) [Entitic mass] 23.2 pg Critically low 26.7-34.0 [facility] Comment on above: Performed By: #### C BC #### [facility] [address] [place] [address] Dr. Juliana Brooks MCHC (RBC) [Mass/Vol] 29.8 g/dL Critically low 29.9-35.2 [facility] Comment on above: Performed By: #### C BC #### [facility] [address] [place] [address] Dr. Juliana Brooks MCV (RBC) [Entitic vol] 78.0 fL Critically low 81.0-99.0 [facility] Comment on above: Performed By: #### C BC #### [facility] [address] [place] [address] Dr. Juliana Brooks MONO # 0.5 103/ul Normal 0.3-0.8 [facility] Comment on above: Performed By: #### C BC #### [facility] [address] [place] [address] Dr. Juliana Brooks Monocytes/100 WBC (Bld) 10.0 % Normal 1.7-12.0 [facility] Comment on above: Performed By: #### C BC #### [facility] [address] [place] [address] Dr. Juliana Brooks NEUT # 2.6 103/ul Normal 1.4-6.5 [facility] Comment on above: Performed By: #### C BC #### [facility] [address] [place] [address] Dr. Juliana Brooks Neutrophils/100 WBC (Bld) 55.5 % Normal 43.0-75.0 [facility] Comment on above: Performed By: #### C BC #### [facility] [address] [place] [address] Dr. Juliana Brooks Platelet mean volume (Bld) [Entitic vol] 10.2 fL Normal 9.5-13.5 [facility] Comment on above: Performed By: #### C BC #### [facility] [address] [place] [address] Dr. Juliana Brooks PLT 320 103/ul Normal 150-450 [facility] Comment on above: Performed By: #### C BC #### [facility] [address] [place] [address] Dr. Juliana Brooks RBC 4.78 106/ul Normal 4.20-5.40 [facility] Comment on above: Performed By: #### C BC #### [facility] [address] [place] [address] Dr. Juliana Brooks WBC 4.7 103/ul Normal 4.0-11.0 [facility] Comment on above: Performed By: #### C BC #### [facility] [address] [place] [address] Dr. Juliana Brooks FREE THYROXINE INDEX T7on FTI 3.24 Normal 1.30-4.50 [facility] Comment on above: Performed By: #### T 7, TSH, CMP, LIPID #### [facility] [address] [address] [address] Juliana Brooks T3U 36.0 % Normal 30.0-39.0 [facility] Comment on above: Performed By: #### T 7, TSH, CMP, LIPID #### [facility] [address] [address] [address] Juliana Brooks T4 [Mass/Vol] 9.00 ug/dL Normal 4.80-13.90 [facility] Comment on above: Performed By: #### T 7, TSH, CMP, LIPID #### [facility] [address] [address] [address] Juliana Brooks GLYCOHEMOGLOBIN A1Con 2022 ADA RECOMMENDATION SEE BELOW Normal [facility] Comment on above: Result Comment: ADA RECOMMENDED LIMIT 4.0 - 6.0 ADA THERAPEUTIC TARGET < 7.0 ACTION SUGGESTED > 7.0 Performed By: #### A 1C #### [facility] [address] [address] [address] Juliana Brooks Glucose [Mass/Vol] 137 mg/dL Normal [facility] Comment on above: Performed By: #### A 1C #### [facility] [address] [address] [address] Juliana Brooks HbA1c (Bld) [Mass fraction] 6.4 % Critically high 4.5-6.2 [facility] Comment on above: Performed By: #### A 1C #### [facility] [address] [address] [address] Juliana Brooks IRONon 07-08-2022 Iron [Mass/Vol] 54.0 ug/dL Normal 50.0-170.0 [facility] Comment on above: Performed By: #### I SARAH #### [facility] [address] [address] [address] Juliana Brooks LIPID PROFILEon 07-08-2022 CHOL-HDL RATIO NORM SEE BELOW Normal [facility] Comment on above: Result Comment: 3.3 - 4.4 LOW RISK 4.4 - 7.1 AVERAGE RISK 7.1 - 11.0 MODERATE RISK >11.0 HIGH RISK Performed By: #### T 7, TSH, CMP, LIPID #### [facility] [address] [address] [address] Juliana Brooks Cholesterol [Mass/Vol] 159 mg/dL Normal <=200 [facility] Comment on above: Performed By: #### T 7, TSH, CMP, LIPID #### [facility] [address] [address] [address] Juliana Brooks Cholesterol in HDL [Mass/Vol] 74 mg/dL Critically high 40-60 [facility] Comment on above: Performed By: #### T 7, TSH, CMP, LIPID #### [facility] [address] [address] [address] Juliana Brooks Cholesterol in LDL [Mass/Vol] 74.4 mg/dL Normal [facility] Comment on above: Performed By: #### T 7, TSH, CMP, LIPID #### [facility] [address] [address] [address] Juliana Brooks Cholesterol.total/Cho lesterol in HDL [Mass ratio] 2.1 {ratio} Normal [facility] Comment on above: Performed By: #### T 7, TSH, CMP, LIPID #### [facility] [address] [address] [address] Juliana Brooks HDL NORMAL > or = 60 mg/dl - LO W CARDIOVASCULAR RISK <40 mg/dl - HIGH CARDIOVASCULAR RISK Normal [facility] Comment on above: Performed By: #### T 7, TSH, CMP, LIPID #### [facility] [address] [address] [address] Juliana Brooks LDL CALC NORMAL SEE BELOW Normal [facility] Comment on above: Result Comment: <100 mg/dl OPTIMAL 100 - 129 mg/dl NEAR OR ABOVE OPTIMAL 130 - 159 mg/dl BORDERLINE HIGH 160 - 189 mg/dl HIGH >190 mg/dl VERY HIGH Performed By: #### T 7, TSH, CMP, LIPID #### [facility] [address] [address] [address] Juliana Brooks Triglyceride [Mass/Vol] 53 mg/dL Normal <=150 [facility] Comment on above: Performed By: #### T 7, TSH, CMP, LIPID #### [facility] [address] [address] [address] Juliana Brooks VLDL CALC 10.6 mg/dL Normal [facility] Comment on above: Performed By: #### T 7, TSH, CMP, LIPID #### [facility] [address] [address] [address] Juliana Brooks PROF 14(COMP METB)on 023 Albumin [Mass/Vol] 3.6 g/dL Normal 3.4-5.[address] [facility] Comment on above: Performed By: #### T 7, TSH, CMP, LIPID #### [facility] [address] [address] [address] Juliana Brooks Albumin/Globulin [Mass ratio] 1.1 {ratio} Normal [facility] Comment on above: Performed By: #### T 7, TSH, CMP, LIPID #### [facility] [address] [address] [address] Juliana Brooks ALP [Catalytic activity/Vol] 107 U/L Normal 46-116 [facility] Comment on above: Performed By: #### T 7, TSH, CMP, LIPID #### [facility] [address] [address] [address] Juliana Brooks ALT [Catalytic activity/Vol] 26 U/L Normal 14-59 [facility] Comment on above: Performed By: #### T 7, TSH, CMP, LIPID #### [facility] [address] [address] [address] Juliana Brooks Anion gap [Moles/Vol] 11.1 mmol/L Normal [facility] Comment on above: Performed By: #### T 7, TSH, CMP, LIPID #### [facility] [address] [address] [address] Juliana Brooks AST [Catalytic activity/Vol] 19 U/L Normal 15-37 [facility] Comment on above: Performed By: #### T 7, TSH, CMP, LIPID #### [facility] [address] [address] [address] Juliana Brooks Bilirubin [Mass/Vol] 0.3 mg/dL Normal 0.2-1.0 [facility] Comment on above: Performed By: #### T 7, TSH, CMP, LIPID #### [facility] [address] [address] [address] Juliana Brooks Calcium [Mass/Vol] 9.2 mg/dL Normal 8.5-10.[address] [facility] Comment on above: Performed By: #### T 7, TSH, CMP, LIPID #### [facility] [address] [place] [address] Dr. Juliana Brooks Chloride [Moles/Vol] 106 mmol/L Normal 98-107 [facility] Comment on above: Performed By: #### T 7, TSH, CMP, LIPID #### [facility] [address] [place] [address] Dr. Juliana Brooks CO2 [Moles/Vol] 28.3 mmol/L Normal 21.0-32.0 [facility] Comment on above: Performed By: #### T 7, TSH, CMP, LIPID #### [facility] [address] [place] [address] Dr. Juliana Brooks Creatinine [Mass/Vol] 0.60 mg/dL Normal 0.55-1.02 [facility] Comment on above: Performed By: #### T 7, TSH, CMP, LIPID #### [facility] [address] [place] [address] Dr. Juliana Brooks EGFR-AF SOMALI >60 Normal >=60 [facility] Comment on above: Performed By: #### T 7, TSH, CMP, LIPID #### [facility] [address] [place] [address] Dr. Juliana Brooks EGFR-NON AF SOMALI >60 Normal >=60 [facility] Comment on above: Performed By: #### T 7, TSH, CMP, LIPID #### [facility] [address] [place] [address] Dr. Juliana Brooks Globulin (S) [Mass/Vol] 3.4 g/dL Normal [facility] Comment on above: Performed By: #### T 7, TSH, CMP, LIPID #### [facility] [address] [address] [address] Juliana Brooks Glucose [Mass/Vol] 104 mg/dL Normal 74-106 [facility] Comment on above: Performed By: #### T 7, TSH, CMP, LIPID #### [facility] [address] [address] [address] Juliana Brooks Potassium [Moles/Vol] 4.4 mmol/L Normal 3.5-5.1 [facility] Comment on above: Performed By: #### T 7, TSH, CMP, LIPID #### [facility] [address] [place] [address] Dr. Juliana Brooks Protein [Mass/Vol] 7.0 g/dL Normal 6.4-8.2 [facility] Comment on above: Performed By: #### T 7, TSH, CMP, LIPID #### [facility] [address] [address] [address] Juliana Brooks Sodium [Moles/Vol] 141 mmol/L Normal 136-145 [facility] Comment on above: Performed By: #### T 7, TSH, CMP, LIPID #### [facility] [address] [place] [address] Dr. Juliana Brooks Urea nitrogen [Mass/Vol] 11.0 mg/dL Normal 7.0-18.0 [facility] Comment on above: Performed By: #### T 7, TSH, CMP, LIPID #### [facility] [address] [place] [address] Dr. Juliana Brooks Urea nitrogen/Creatinine [Mass ratio] 18.3 mg/mg Normal [facility] Comment on above: Performed By: #### T 7, TSH, CMP, LIPID #### [facility] [address] [place] [address] Dr. Juliana Brooks TSHon 07-08-2022 TSH Qn m[IU]/L Critically low 0.358-3.74 0 [facility] Comment on above: Performed By: #### T 7, TSH, CMP, LIPID #### [facility] [address] [address] [address] Juliana Brooks MRI LSPINE WO CONon [...] by: IRENE AGUILERA Date: 2021-12-24 16:08 Normal [facility] XR LSPINE MIN 4 VIEWSon 11-16 [...] by: ALE GERBER Date: 2021-11-26 18:41 Normal [facility] Ambulatory Visit Summaryon 0 07-24-2021 Ambulatory [...] right inguinal hernia Sleep apnea Normal [facility] General Surgery Office/Clini c Noteon 07-24-2021 [...] - Not Given Patient Refuses Normal [facility] Comment on above: Result Comment: Elec tronically Signed By: KHANG BARTH, Jerry Randolph\.br\Date and Time Signed: 07/24/21 14:01 EDT Ambulatory Visit Summaryon 0 07-10-2021 Ambulatory Visit Summary ANA PALMER Jeffry :1970 Visit Date:07/10/2021 Ambulatory Visit Instructions Your [...] With: Jerry QUIÑONEZ MD Where: General Surgery Nill/Said Fatemeh Rosado [facility] General Surgery Office/Clini c Noteon 07-10-2021 General [...] - Not Given Patient Refuses Normal [facility] Comment on above: Result Comment: Elec tronically Signed By: KHANG BARTH, Jerry Warren\Date and Time Signed: 07/10/21 14:23 EDT Operative Reporton Operative Report [id number]#1.00CD:127 [facility] Lab Reportson 06-29-2021 Lab Reports [id number]#1.00CD:127 [facility] ECG 12-Leadon 06-24-2021 ECG 12-Lead [id number]#1.00CD:127 [facility] Pre-Certification Formon Pre-Certification Form [id number]#1.00CD:127 [facility] RAD - CT Reporton 06-14-2021 RAD - CT Report [id number]#1.00CD:127 [facility] Consent for Procedure/Surger yon 06-11-2021 Consent for Procedure/Surgery [id number]#1.00CD:127 [facility] Ambulatory Visit Summaryon 0 06-10-2021 Ambulatory Visit Summary ANA PALMER :1970 Visit Date:06/10/2021 Ambulatory Visit Instructions Your Care Team Attending Physician - Jerry [...] of cervical spine Sleep apnea Normal [facility] Physician Referralon 022 Physician Referral [id number]#1.00CD:127 Normal [facility] FLUORO FOR SURGICAL PROCEDUR ESOrdered By: Mejia Griffin on 11-18-2020 Jamie, Chpo Incoming [employer] Results From [employer] - 11/18/2020 2:23 PM EDT EXAMINATION: FLUORO FOR SURGICAL PROCEDURES CLINICAL HISTORY: R52 Pain ICD10 COMPARISONS: None available. FINDINGS: Fluoroscopic assistance was provided during ACDF, C5-6 and C6-7 The total radiation time is 31.9 seconds, radiation dose is 3.62mGy. IMPRESSION: Intraprocedural fluoroscopic support has been provided. Please refer to the procedure report. [employer] Work Phone: [employer] Work Phone: Surgical Specimenon 11-19-19 21 Surgical Specimen [facility] [address] [place], [place] [id number] FINAL SURGICAL PATHOLOGY REPORT Patient Name: ANA PALMER Accession No: [id number] Age Sex: 1970 Location: [facility] [id number] Account No: [id number] Collected: 11/18/2020 [facility] Rec No: [id number] Received: 11/18/2020 Attend Phys: MEJIA GRIFFIN Completed: [...] in three cassettes following decalcification. LUAN CPT: 16307 X1 00547 X1 JERAMIE ERVIN M.D. 11/20/2020 Electronically signed out by Page 1 of 1 Invalid Interpretation Code [facility] Comment on above: Performed By: #### S UR #### [facility] [address] [place] [address] COVID-19, PCRon 11-08-2020 SARS-CoV-2 (COVID-19) RNA AISHA+probe Ql (Unsp spec) Not detected Normal Not Detect [facility] Comment on above: Result Comment: Test ing was performed using [employer] SARS-CoV-2 Assay. Negative results do not preclude [...] oropharyngeal and mid-turbinate specimens. Patient Fact Sheet: https://www.fda.gov/media/766263/download Provider Fact Sheet: https://www.fda.gov/media/484519/download FDA Specimen Types Link: https://www.fda.gov/medical-devices/ rugrkocmshy-gyvtv-19-hwl-oknkvpe-jkvornn/ypsl-hazsxlt-goav-cov-2 Methodology: RT-PCR Performed By: #### C OVB #### [facility] [address] [place] [address] CBC With Platelet No Differe ntialon 11-07-2020 Erythrocyte distribution width (RBC) [Ratio] 15.8 % Critically high 11.5-14.5 [facility] Comment on above: Performed By: #### C BCND #### [facility] [address] [place] [address] Hematocrit (Bld) [Volume fraction] 37.5 % Normal 37.0-47.0 [facility] Comment on above: Performed By: #### C BCND #### [facility] [address] [place] [address] Hemoglobin (Bld) [Mass/Vol] 12.1 g/dL Normal 12.0-16.0 [facility] Comment on above: Performed By: #### C BCND #### [facility] [address] [place] [address] MCH (RBC) [Entitic mass] 26.2 pg Low 27.0-31.3 [facility] Comment on above: Performed By: #### C BCND #### [facility] [address] [place] [address] MCHC 32.3 % Low 33.0-37.0 [facility] Comment on above: Performed By: #### C BCND #### [facility] [address] [place] [address] MCV (RBC) [Entitic vol] 81.3 fL Low 82.0-100.0 [facility] Comment on above: Performed By: #### C BCND #### [facility] [address] [place] [address] Platelets (Bld) [#/Vol] 301 10*3/uL Normal 130-400 [facility] Comment on above: Performed By: #### C BCND #### [facility] [address] [place] [address] RBC (Bld) [#/Vol] 4.61 10*6/uL Normal 4.20-5.40 [facility] Comment on above: Performed By: #### C BCND #### [facility] [address] [place] [address] WBC (Bld) [#/Vol] 3.7 10*3/uL Low 4.8-10.8 [facility] Comment on above: Performed By: #### C BCND #### [facility] [address] [place] [address] Partial Thromboplastin Timeo n 11-07-2020 aPTT Coag (Bld) [Time] 28.0 s Normal 24.4-36.8 [facility] Comment on above: Result Comment: Effe ctive 02/20/2020: Heparin Therapeutic Range: 64.0 ? 98.0 seconds. Performed By: #### P TT #### [facility] [address] [place] [address] Prothrombin Timeon INR Coag (PPP) [Relative time] 1.0 {INR} Normal [facility] Comment on above: Performed By: #### P T #### [facility] [address] [place] [address] PT Coag (PPP) [Time] 13.3 s Normal 12.3-14.9 [facility] Comment on above: Performed By: #### P T #### [facility] [address] [place] [address] Type and Screen Capture 3 sc rn cellon 11-07-2020 Type and Screen Capture 3 scrn cell PATIENT: ESTELA PEREZ LOC: [facility] BILL# : [id number] : 1970 SEX: F ORDERED BY: TIM CASTILLO ORDERED : 11/07/2020 13:32 COLLECTED: 11/07/2020 13:32 ORDER : [id number] RECEIVED : 11/07/2020 19:33 TEST NAME RESULT UNITS RANGES ABN FL ST ABORH Capture O POS F Antibody 3 Cell Scrn Captu NEG F Normal [facility] Comment on above: Performed By: #### T S3C #### [facility] [address] [place] [id number] MRI CERVICAL SPINE WO CONTRA STOrdered By: [...] gland, may consider dedicated thyroid ultrasound imaging. [facility] [employer] Work Phone: EXAMINATION: MRI CER VICAL SPINE [...] hypertrophy with mild left neural foraminal narrowing. [employer] Phone: Jamie, Chpo Incoming R [employer]iant Results From [employer] - 09/10/2020 12:02 PM EDT EXAMINATION: MRI [...] gland, may consider dedicated thyroid ultrasound imaging. [employer] Phone: [employer] Phone: MRI CERVICAL SPINE WO CONTRA STon [...] Leandro Spaulding MD 09/10/20 Final result Normal [facility] COVID-19, NAAon 09-04-2020 SARS-CoV-2 (COVID-19) RNA AISHA+probe Ql (Unsp spec) Not detected Normal Not Detect [facility] Comment on above: Result Comment: This nucleic acid amplification test was developed and its performance characteristics determined by [employer]. Nucleic acid amplification tests include RT-PCR and [...] detected) result in this assay. Performed at: [address] [id number] Workforce Development Assistant: Lane Rivera PhD, Phone: [phone] Performed By: #### I RCOV #### [facility] [address] [place] [id number] COVID-19, NAAon 09-02-2020 Source Swab Anterior nares Normal [facility] Comment on above: Performed By: #### I RCOV #### [facility] [address] [place] [id number] Vital Signs Date Time Vital Sign Value Performing Clinician Facility 02-16-2023 15:45-0400 Body height 162.56 cm Training Advisor Other [email or web address] Other 02-16-2023 15:45-0400 Body mass index (BMI) [Ratio] 25.4 kg/m2 Training Advisor Other [email or web address] Other 02-16-2023 15:45-0400 Body weight 67.13 kg Training Advisor Other [email or web address] Other 01-31-2023 18:30-0400 Diastolic blood pressure 78 mm[Hg] MD Gina Javier Work Phone: [facility] 01-31-2023 18:30-0400 Heart rate 98 /min MD Gina Javier Work Phone: [facility] 01-31-2023 18:30-0400 Respiratory rate 16 /min MD Gina Javier Work Phone: [facility] 01-31-2023 18:30-0400 SaO2% (BldA) [Mass fraction] 96 % MD Gina Javier Work Phone: [facility] 01-31-2023 18:30-0400 Systolic blood pressure 116 mm[Hg] MD Gina Javier Work Phone: [facility] 01-31-2023 16:45-0400 Body temperature 98 [degF] MD Gina Javier Work Phone: [facility] 01-31-2023 16:15-0400 Inhaled oxygen flow rate 10 L/min MD Gina Javier Work Phone: [facility] 01-31-2023 12:49-0400 Body height 160.02 cm MD Gina Javier Work Phone: [facility] 01-31-2023 12:49-0400 Body mass index (BMI) [Ratio] 26.5 kg/m2 MD Gina Javier Work Phone: [facility] 01-31-2023 12:49-0400 Body weight 68 kg MD Gina Javier Work Phone: [facility] 01-27-2023 15:30-0400 Body height 162.56 cm Edison Wallowa II Other [email or web address] Other 01-27-2023 15:30-0400 Body mass index (BMI) [Ratio] 25.44 kg/m2 Edison Wallowa II Other [email or web address] Other 01-27-2023 15:30-0400 Body weight 67.22 kg Edison Jeremías II Other [email or web address] Other 07-05-2022 12:15-0400 Body height 162.56 cm Sawyer Greer Other [email or web address] Other 01-26-2022 10:40-0400 Body height 162.56 cm Santiago Cano Other [email or web address] Other 01-26-2022 10:40-0400 Body mass index (BMI) [Ratio] 36.9 kg/m2 Santiago Cano Other [email or web address] Other 01-26-2022 10:40-0400 Body weight 97.52 kg Santiago Cano Other [email or web address] Other 07-24-2021 13:31-0400 Body temperature 97.88 [degF] Jerry QUIÑONEZ [facility] [email or web address] 07-10-2021 14:00-0400 Body temperature 97.34 [degF] Jerry QUIÑONEZ [email or web address] 11-19-2020 08:27-0400 Body temperature 98.1 [degF] Mejia Griffin MD Work Phone: [employer] Work Phone: 11-19-2020 08:27-0400 Diastolic blood pressure 78 mm[Hg] Mejia Griffin MD Work Phone: [employer] Work Phone: 11-19-2020 08:27-0400 Heart rate 109 /min Mejia Griffin MD Work Phone: [employer] Work Phone: 11-19-2020 08:27-0400 SaO2% (BldA) [Mass fraction] 98 % Mejia Griffin MD Work Phone: [employer] Work Phone: 11-19-2020 08:27-0400 Systolic blood pressure 118 mm[Hg] Mejia Griffin MD Work Phone: [employer] Work Phone: 11-19-2020 04:29-0400 Respiratory rate 18 /min Mejia Griffin MD Work Phone: [employer] Work Phone: 11-18-2020 08:30-0400 Body height 162.6 cm Mejia Griffin MD Work Phone: [employer] Phone: 11-18-2020 08:30-0400 Body mass index (BMI) [Ratio] 34.84 kg/m2 Mejia Griffin MD Work Phone: [employer] Phone: 11-18-2020 08:30-0400 Body weight 92.08 kg Mejia Griffin MD Work Phone: [employer] Phone: 09-09-2020 14:57-0400 Diastolic blood pressure 75 mm[Hg] [employer] Phone: 09-09-2020 14:57-0400 Heart rate 93 /min [employer] Phone: 09-09-2020 14:57-0400 Respiratory rate 16 /min [employer] Phone: 09-09-2020 14:57-0400 Systolic blood pressure 169 mm[Hg] [employer] Phone: 09-09-2020 12:41-0400 Body height 162.6 cm [employer] Phone: 09-09-2020 12:41-0400 Body mass index (BMI) [Ratio] 34.67 kg/m2 [employer] Phone: 09-09-2020 12:41-0400 Body weight 91.63 kg [employer] Phone: 09-09-2020 12:41-0400 SaO2% (BldA) [Mass fraction] 99 % [employer] Phone: Encounters Encounter Date Encounter Type Care Provider Facility Start: 03-13-2024 End: 03-26-2024 Clinisync Result Encounter Ze Viviane DO Work Phone: [facility] Unsolicited Start: 03-13-2024 End: 03-26-2024 Clinisync Result Encounter Ze Leigho DO Work Phone: [facility] Unsolicited Start: 03-13-2024 End: 03-13-2024 Patient encounter procedure Ze Pan DO Work Phone: [facility] Start: 03-13-2024 End: 03-13-2024 Periodic preventive med est patient 40-64yrs Ze Leigho DO Work Phone: [facility] Comment on above: Well woman exam with routine gynecological exam; Encounter for screening mammogram for malignant neoplasm of breast; Asymptomatic menopausal state; Dyspareunia in female Start: 02-02-2024 End: 02-02-2024 ambulatory MD Gina Javier Work Phone: [facility] Work Phone: Start: 02-02-2024 End: 02-02-2024 Patient encounter procedure MD Gina Javier Work Phone: [facility] Work Phone: Start: 04-20-2023 Office outpatient vi sit 15 minutes Edison Veronica II [facility] Start: 04-20-2023 End: 04-20-2023 Patient encounter procedure MD Gina Javier Work Phone: [facility] Start: 04-20-2023 End: 04-20-2023 ambulatory MD Gina Javier Work Phone: [facility] Work Phone: Start: 03-17-2023 End: 03-17-2023 Patient encounter procedure MD Gina Javier Work Phone: [facility] Start: 03-17-2023 End: 03-17-2023 ambulatory MD Gina Javier Work Phone: [facility] Work Phone: Start: 03-03-2023 (Post-Op) Post-Op Edison Wallowa II [facility] Start: 03-03-2023 End: 03-03-2023 ambulatory Edison Wallowa II Other [email or web address] Other Start: 02-16-2023 (Post-Op) Post-Op Edison Jeremías II [facility] Start: 02-16-2023 End: 02-16-2023 ambulatory Edison Wallowa II Other [email or web address] Other Start: 02-10-2023 (Post-Op) Post-Op Edison Jeremías II [facility] Start: 02-10-2023 End: 02-10-2023 ambulatory Edison Wallowa II Other [email or web address] Other Start: 02-09-2023 End: 02-09-2023 ambulatory Edison Wallowa II Other [email or web address] Other Start: 02-09-2023 Telephone encounter Edison Jeremías II [facility] Start: 01-31-2023 End: 01-31-2023 Admission to same day surgery center MD Gina Javier Work Phone: [facility] [place] Start: 01-31-2023 End: 01-31-2023 ambulatory MD Gina Javier Work Phone: [facility] Work Phone: Start: 01-27-2023 End: 01-27-2023 Discharged Recurring MD Gina Javier Work Phone: [facility] [place] Start: 01-27-2023 End: 01-27-2023 ambulatory MD Gina Javier Work Phone: [email or web address] Other Start: 01-27-2023 Patient encounter procedure Edison Jeremías II [facility] Start: 01-21-2023 (Prolonged) Prolonge d Services Edison Pastorle II [facility] Start: 01-21-2023 End: 01-21-2023 ambulatory Edison Veronica II Other [email or web address] Other Start: 01-20-2023 End: 01-20-2023 ambulatory MD Gina Javier Work Phone: [facility] Work Phone: Start: 01-20-2023 End: 01-20-2023 Patient encounter procedure MD Gina Javier Work Phone: [facility] Work Phone: Start: 12-24-2022 End: 12-24-2022 ambulatory MD Gina Javier Work Phone: [facility] Work Phone: Start: 12-24-2022 End: 12-24-2022 Patient encounter procedure MD Gina Javier Work Phone: [facility] Start: 12-24-2022 End: 12-24-2022 ambulatory MD Gina Javier Work Phone: [facility] Work Phone: Start: 12-24-2022 End: 12-24-2022 Patient encounter procedure MD Gina Javier Work Phone: [facility] Start: 12-16-2022 End: 12-16-2022 ambulatory Sawyer Greer Other [email or web address] Other Start: 12-16-2022 Office outpatient vi sit 25 minutes Sawyer Greer [facility] [place] Start: 12-16-2022 Telephone encounter Sawyer Greer [facility] [place] Start: 09-09-2022 End: 09-10-[address] GINA JAVIER . Facility: Start: 08-24-2022 End: 08-24-2022 Patient encounter procedure MD Gina Javier Work Phone: [facility] Start: 08-24-2022 End: 08-24-2022 ambulatory MD Gina Javier Work Phone: [facility] Work Phone: Start: 08-24-2022 Office outpatient vi sit 25 minutes Sawyer Greer [facility] [place] Start: 08-16-2022 (Procedure) Short Sawyer Greer [facility] Start: 08-16-2022 End: 08-16-2022 ambulatory Sawyer Greer Other [email or web address] Other Start: 08-04-2022 End: 08-04-2022 ambulatory Sawyer Greer Other [email or web address] Other Start: 08-04-2022 Office outpatient vi sit 25 minutes Sawyer Greer [facility] [place] Start: 07-11-2022 Encounter for genera l adult medical examination without abnormal findings DR GINA JAVIER . [facility] Start: 07-08-2022 End: 07-09-[address] GINA JAVIER . Facility:[facility] Start: 07-08-2022 End: 07-09-2022 Encounter for general adult medical examination without abnormal findings DR GINA JAVIER . Facility:[facility] Start: 07-05-2022 End: 07-05-2022 ambulatory Sawyer Greer Other [email or web address] Other Start: 07-05-2022 Office outpatient vi sit 25 minutes Sawyer Greer [facility] [place] Start: 04-19-[address] GINA JAVIER . Facili ty:[facility] Start: 02-23-2022 End: 02-23-2022 ambulatory Sawyer Greer Other [email or web address] Other Start: 02-23-2022 Office outpatient vi sit 15 minutes Sawyer Greer [facility] [place] Start: 02-15-2022 (Procedure) Short Sawyer Greer [facility] Start: 02-15-2022 End: 02-15-2022 ambulatory Sawyer Barromana Other [facility] Other Start: 02-01-2022 End: 02-01-2022 ambulatory Sawyer Greer Other [facility] Other Start: 02-01-2022 Office outpatient ne w 45 minutes Sawyer Greer [facility] [place] Start: 02-01-2022 Telephone encounter Sawyer Greer [facility] [employer] [facility] Start: 01-26-2022 End: 01-26-2022 ambulatory Santiago Cano Other [facility] Other Start: 01-26-2022 Office outpatient ne w 45 minutes Santiago Cano [facility] Start: 12-24-2021 End: 12-25-[address] GINA JAVIER . Facility:[facility] Start: 11-26-2021 End: 11-27-[address] GINA JAVIER . Facility:[facility] Start: 07-24-2021 End: 07-24-2021 Patient encounter procedure Jerry QUIÑONEZ [facility] Start: 07-10-2021 End: 07-10-2021 Patient encounter procedure Jerry QUIÑONEZ [facility] [place] Start: 11-18-2020 End: 11-19-2020 Evaluation and management of inpatient GINA Teran [facility] Start: 11-18-2020 End: 11-21-2020 ambulatory MEJIA GRIFFIN [facility] Start: 11-18-2020 End: 11-19-2020 Evaluation and management of inpatient Mejia Griffin MD Work Phone: [facility] Comment on above: Post-op pain (Primar y Dx); Pain; Muscle spasm Start: 11-18-2020 End: 11-20-2020 Subsequent hospital visit by physician Mejia Griffin MD Work Phone: [facility] Radiology Comment on above: Pain Start: 09-09-2020 End: 09-12-2020 ambulatory GINA JAVIER [facility] Start: 09-09-2020 End: 09-11-2020 Subsequent hospital visit by physician Andres Mri Room 2 [facility] MRI Comment on above: Cervical spondylosis with myelopathy; Cervical stenosis of spine; Cervical radiculopathy Procedures Date Procedure Procedure Detail Performing Clinician Start: 03-13-2024 IGP,APTIMA HPV,AGE GDLN Ze Viviane DO Work Phone: Start: 02-02-2024 Plain X-ray of left hip [...] canal cer vical w/o contrast matrl Mejia Griffni MD Work Phone: Biopsy of breast Jerry Chaparro Comment on above: right section Jerry Chaparro Colonoscopy Jeryr QUIÑONEZ Exploratory laparotomy Luis QUIÑONEZ Total abdominal hysterectomy with bilateral salpingo-oophorectomy Jerry QUIÑONEZ Plan of Treatment Date Care Activity Detail Author Start: 03-13-2024 End: 03-13-2025 DXA Skeletal system Views for bone density DEXA bone density Imaging Routine Well woman exam with routine gynecological exam Asymptomatic menopausal state Expected: 03/13/2024 (Approximate), Expires: 03/13/2025 [facility] Comment on above: Expected: 03/13/2024 (Approximate), Expires: 03/13/2025 Start: 03-13-2024 End: 05-13-2025 MG Breast - bilateral Screening Bilateral screening mammogram Imaging Routine Well woman exam with routine gynecological exam Encounter for screening mammogram for malignant neoplasm of breast Expected: 03/13/2024, Expires: 05/13/2025 FUJIAN HAIYUAN Work Phone: Comment on above: Expected: 03/13/2024 , Expires: 05/13/2025 Start: 02-02-2024 Plain X-ray of left hip XR hip LT min 2V(w/wo pelvis)* [facility] Start: 02-02-2024 XR Hip - left 2 Views [facility] Start: 01-31-2023 [facility] Start: 01-31-2023 [facility] Start: 01-31-2023 Physical therapy procedure [facility] Start: 01-20-2023 [facility] Start: 12-24-2022 MRSA Culture MRSA Culture [facility] Start: 12-17-2020 Influenza vaccination [employer] Work Phone: Start: 12-05-2020 End: 12-05-2020 Patient encounter procedure 12/05/2020 Office Visit Neurosurgery Mejia Griffin MD [address] [place] [address] [phone] [facility] Neurosurgery Start: 09-19-2020 End: 09-19-2020 Patient encounter procedure 09/19/2020 Office Visit Neurosurgery Mejia Griffin MD [address] [place] [address] [phone] [facility] Neurosurgery Start: 12-13-2019 Screening for malign ant neoplasm of breast Breast cancer screen [employer] Phone: Start: 12-13-2019 Screening for malign ant neoplasm of colon Colon cancer screen colonoscopy [employer] Phone: Start: 12-13-2019 Shingles Vaccine (1 of 2) Shingles Vaccine (1 of 2) [employer] Phone: Start: 2014 Screening for malign ant neoplasm of colon Colon cancer screen colonoscopy [employer] Phone: Start: 2009 Diabetes screen Diabetes screen [employer] Phone: Start: 1990 Screening for malign ant neoplasm of cervix Cervical cancer screen [employer] Phone: Start: 1988 DTaP/Tdap/Td vaccine (1 - Tdap) DTaP/Tdap/Td vaccine (1 - Tdap) [employer] Phone: Start: 1984 HIV screening HIV screen [facility] Work Phone: Start: 1981 COVID-19 Vaccine (1) COVID-19 Vaccin e (1) [employer] Work Phone: Start: 12-13-1979 Lipid panel Lipid screen [facility] Work Phone: Start: 1969 Creatinine measurement Creatinine mo nitoring [employer] Work Phone: Start: 1969 Hepatitis C screening Hepatitis C sc patricia [employer] Phone: Start: 1969 Potassium monitoring Potassium monit chadwick [employer] Phone: Continuous pulse oximetry Pulse oximetry, continuous Respiratory Care Routine Every 4hr until discontinued starting 11/18/2020 [employer] Phone: Comment on above: Every 4hr until disc ontinued starting 11/18/2020 Cotinine [Mass/volum e] in Serum or Plasma [facility] End: 11-18-2020 Fluoroscopy during operation FLUORO FOR SURGICAL PROCEDURES Imaging Routine Pain Once for 1 Occurrences starting 11/18/2020 until 11/18/2020 [employer] Phone: Comment on above: Once for 1 Occurrenc es starting 11/18/2020 until 11/18/2020 Fluoroscopy during operation FLUORO FOR SURGICAL PROCEDURES Imaging Routine Pain 11/18/2020 1:30 PM EDT [employer] Phone: Glucose measurement estimated from glycated hemoglobin [facility] Methicillin resistan t Staphylococcus aureus [Presence] in Unspecified specimen by Organism specific culture [facility] Nicotine [Mass/volum e] in Serum or Plasma [facility] Oxygen therapy [Mini [facility] Data Set] [employer] Phone: Comment on above: Daily until disconti nued starting 09/09/2020 Daily until disconti nued starting 11/18/2020 Phase I & II - meter ed glucose Phase I & II - metered glucose Point of Care Testing Routine As Needed until discontinued starting 09/09/2020 [employer] Phone: Comment on above: As Needed until disc ontinued starting 09/09/2020 Spirometry panel Incentive joaquín metry Respiratory Care Routine Every 2hr while awake until discontinued starting 09/09/2020 [employer] Phone: Comment on above: Every 2hr while awak e until discontinued starting 09/09/2020 Surgical Pathology [facility] Work Phone: Comment on above: Release Upon Orderin g for 1 Occurrences starting 11/18/2020 End: 11-18-2020 Surgical Pathology Surgical Pathology Lab Routine Once for 1 Occurrences starting 11/18/2020 until 11/18/2020 [employer] Work Phone: Comment on above: Once for 1 Occurrenc es starting 11/18/2020 until 11/18/2020 THIN PREP TIS PAP AN D HR HPV DNA THIN PREP TIS PAP AND HR HPV DNA Pathology and Cytology Routine Well woman exam with routine gynecological exam Ordered: 03/13/2024 [facility] Comment on above: Ordered: 03/13/2024 [facility] Immunizations Immunization Date Immunization Notes Care Provider Fa karoline NEGATED: Highlighted row has not occurred!06-10-2021 influenza virus vaccine, unspecified formulation Jerry QUIÑONEZ [facility] [place] Payers Date Payer Category Payer Self-pay [id number] 2021 [facility] BCBS [id number] 2020 Private Health Insurance [id number] 2020 Private Health Insurance [id number] 1969 Unknown [id number]. [id number] 1969 Unknown [id number]. 2.182 1969 Unknown [id number] [id number]. 2.182 1969 Unknown [id number] [id number]. 2.593 1969 Unknown [id number] [id number]. 2.593 1969 Unknown [id number] [id number]. 2.593 1969 Unknown [id number] [id number]. 2.593 1969 Unknown [id number] [id number]. [id number] 1959 [facility] [id number] 1959 Self-pay [id number] [facility] [id number] Private Health Insurance [employer] [id number] Unknown [id number] [id number] Unknown [id number]. 2.531 Unknown [id number]. 2.531 Social History Date Type Detail Facility Start: 09-02-2020 End: 01-31-2023 Tobacco smoking status MDIS Never smoker [employer] Work Phone: Start: 09-02-2020 End: 11-20-2020 Tobacco use and exposure Never used [employer] Start: 1970 Sex Assigned At Not on file [employer] Work Phone: Start: 11-07-2020 History 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 5 [employer] Work Phone: Start: 11-07-2020 History SDOH Food Worry 1 [employer] Phone: Start: 1970 Sex Assigned At Female [employer] Work Phone: Exposure to SARS-CoV -2 (event) Not sure [employer] Tobacco smoking status Never [email or web address] Sex Assigned At Female Genera [email or web address] Tobacco smoking stat [facility] Tobacco smoking consumption unknown [facility] Medical Equipment Procedure Code Equipment Code Equipment Original Text Equipment Identifier Dates Arthroplasty, hip, total, anterior approach Acetabular shell [id number] FDA Start: 01-31-2023 Arthroplasty, hip, total, anterior approach Orthopaedic bone screw, non-bioabsorbable, sterile ()[id number] FDA Start: 01-31-2023 Arthroplasty, hip, total, anterior approach Orthopaedic bone screw, non-bioabsorbable, sterile [id number] FDA Start: 01-31-2023 Arthroplasty, hip, total, anterior approach Ceramic femoral head prosthesis ()[id number] FDA Start: 01-31-2023 Arthroplasty, hip, total, anterior approach Coated hip femur prosthesis, modular ()[id number] FDA Start: 01-31-2023 Arthroplasty, hip, total, anterior approach Non-constrained polyethylene acetabular liner ()[id number] FDA Start: 01-31-2023 Cage Spnl W11xh8 xl14mm Lum Lord Intbdy Fus [employer] Cc - [id number] Start: 11-18-2020 Graft Spnl W11xh [id number] Corticocancellous Lord Triad - [id number] Start: 11-18-2020 Screw Spnl L7mm Dia2.6mm Lum Lat Mass Leverage Lfs [id number] Start: 11-18-2020 Plate Spnl L42mm Ant Cerv 2 Lev Translational [place] [facility] [id number] Start: 11-18-2020 Screw Spnl L13mm Dia4mm Ant Cerv [facility] Melanie Ang Compr [place] [facility]p [id number] Start: 11-18-2020 Screw Spnl L5mm Dia2.6mm Stubbs Leverage Lfs [id number] Start: 11-18-2020 Plate Spnl Cran Caud Stubbs 9.5mm M Leverage Lfs [id number] Start: 11-18-2020 Goals Date Patient Goal Desired Activity /State Clinical Notes 11-18-2020 to 03-13-2024 Radha Mojica LPN - 03/13/2024 8:30 AM EST Note Date & Type Note Facility 03-13-2024 History of Presen t illness Narrative Reason for Appointment: Patient ID: Ana Palmer is a 53 y.o. female who presents for Gynecologic Exam Patient presents today for Annual Exam. MEDICATIONS No current outpatient medications ALLERGIES Not on File PROBLEMS Active Ambulatory Problems Diagnosis Date Noted No Active Ambulatory Problems Resolved Ambulatory Problems Diagnosis Date Noted No Resolved Ambulatory Problems No Additional Past Medical History HISTORY PAST MEDICAL HISTORY SOCIAL HISTORY No past medical history on file. Social History Tobacco Use Smoking status: Not on file Smokeless tobacco: Not on file Substance Use Topics Alcohol use: Not on file Drug use: Not on file FAMILY HISTORY No family history on file. SURGICAL HISTORY No past surgical history on file. REVIEW OF SYSTEMS Review of Systems: Review of Systems Constitutional: Negative. HENT: Negative. Eyes: Negative. Respiratory: Negative. Cardiovascular: Negative. Gastrointestinal: Negative. Genitourinary: Positive for dyspareunia. Musculoskeletal: Negative. Skin: Negative. Neurological: Negative. All other systems reviewed and are negative. Hematological: Negative. Endocrine: Negative. Allergic/Immunologic: Negative. OBJECTIVE Objective: Physical Exam Constitutional: Appearance: Normal appearance. She is well-developed. Genitourinary: Vulva normal. Vaginal cuff intact. Cervix is absent. Uterus is absent. Breasts: Breasts are soft. Right: Normal. Left: Normal. Cardiovascular: Rate and Rhythm: Normal rate and regular rhythm. Abdominal: General: Bowel sounds are normal. There is no distension. Palpations: Abdomen is soft. Tenderness: There is no abdominal tenderness. There is no guarding or rebound. Musculoskeletal: General: No swelling. Normal range of motion. Right lower leg: No edema. Left lower leg: No edema. Neurological: Mental Status: She is alert and oriented to person, place, and time. Skin: General: Skin is warm and dry. Psychiatric: Mood and Affect: Mood normal. Behavior: Behavior normal. Vitals and nursing note reviewed. Exam conducted with a r d internship present. Vitals: Estimated body mass index is 37.2 kg/m as calculated from the following: Height as of 08/16/17: 5' 3 . Weight as of 08/16/17: 210 lb. BP: No LMP recorded. Patient has had a hysterectomy. ASSESSMENT & PLAN ICD-10-CM 1. Well woman exam with routine gynecological exam Z01.419 Bilateral screening mammogram DEXA bone density THIN PREP TIS PAP AND HR HPV DNA Bilateral screening mammogram 2. Encounter for screening mammogram for malignant neoplasm of breast Z12.31 Bilateral screening mammogram Bilateral screening mammogram 3. Asymptomatic menopausal state Z78.0 DEXA bone density Annual: Patient presents today for an annual exam. Patient states she is doing well and has complaints of dyspareunia, agglutination noted- estrace cream called to pharmacy- pt to use 1/2 applicator at HS for one month and then twice a week thereafter- pt to return in 2 months for recheck on estrace cream. Pap was obtained without difficulty and patient given mammogram order to have scheduled/obtained. Orders Placed This Encounter Procedures Bilateral screening mammogram DEXA bone density Follow Up: Patient is to return in one year for annual unless needed otherwise. Documented by Radha Mojica LPN on behalf of: Ze Pan DO documented in this encounter [facility] 04-20-2023 Evaluation note Encounter Date Diagnosis Assessment Notes Apr, S/P total left hip arthroplasty (ICD-10 - Z96.642) Apr, Aftercare following joint replacement surgery (ICD-10 - Z47.1) Apr, Presence of left artificial hip joint (ICD-10 - Z96.642) Apr, [facility] [place] Overall she is doing great. [...] to call with any questions or concerns. [email or web address] Other 11-16-2023 Evaluation note* Encounter Date Diagnosis [...] weeks with x-rays of the left hip. [email or web address] Other 11-01-2023 Evaluation note* Encounter Date Diagnosis Assessment Notes Treatment Notes Treatment Clinical Notes Feb, S/P total left hip arthroplasty (ICD-10 - Z96.642) Feb, Aftercare following joint replacement surgery (ICD-10 - Z47.1) Feb, Presence of left artificial hip joint (ICD-10 - Z96.642) Feb, Other [facility] on 01/31/2023 Overall patient is doing [...] off narcotic pain medication. They can take mjle-yzn-odedhhu anti-inflammatories as needed for assistance with swelling [...] examination and x-rays of the left hip. [email or web address] Other 10-26-2023 Evaluation note* Encounter Date Diagnosis [...] to help calm down this allergic reaction. [email or web address] Other 10-12-2023 Evaluation note* Encounter Date Diagnosis Assessment Notes Treatment Notes Treatment Clinical Notes Jan, Primary osteoarthritis of left hip (ICD-10 - M16.12) Jan, Age-related osteoporosis without current pathological fracture (ICD-10 - M81.0) Jan, Other sash sticker (current) drug therapy (ICD-10 - Z79.899) Jan, Other 1. Left JILLIAN Home Medications - DVT prophylaxis: Aspirin - NSAID: Celebrex - Disposition: Same-day discharge Joints Meeting Checklist - Pharmacy: [facility] bed - Approach/Technique: anterior, [place] bed - Implants: Avenir Complete/G7; - Anesthesia: general vs spinal - Blocks: Fascia iliaca - Preop Antibiotics: Ancef - TXA: yes-systemic - Positioning/OR Bed: supine on [place] bed - Intraop X-ray: yes - Fraser: [...] above surgery. OARRS report generated and reviewed. [email or web address] Other 10-06-2023 Evaluation note* Encounter Date Diagnosis [...] patient could proceed with surgery safely. The jewelry manager was vital for surgery timing and [...] plans. Prolonged services time spent: 32 minutes [email or web address] Other 08-31-2023 Evaluation note* Encounter Date Diagnosis [...] note writ ten by Nino Reese MA, Combat Rifle Crewmember. Edited and approved by Dr. Sawyer Greer MD. [email or web address] Other 08-31-2023 Evaluation note* Encounter Date Diagnosis Assessment Notes Treatment Notes Treatment Clinical Notes Nov, Osteoarthritis of left hip (ICD-10 - M16.12) [email or web address] Other 05-09-2023 Evaluation note* Encounter Date Diagnosis [...] note writ ten by Jcarlos Jovel LPN, [employer] Rifle Crewmember. Edited and approved by Dr. Sawyer Greer MD. [email or web address] Other 04-19-2023 Evaluation note* Encounter Date Diagnosis [...] note writ ten by Jcarlos Jovel LPN, [employer] Rifle Crewmember. Edited and approved by Dr. Sawyer Greer MD. [email or web address] Other 03-20-2023 Evaluation note* Encounter Date Diagnosis [...] note writ ten by Jcarlos Jovel LPN, Combat Rifle Crewmember. Edited and approved by Dr. Sawyer Greer MD. [email or web address] Other 11-08-2022 Evaluation note* Encounter Date Diagnosis [...] note writ ten by Nino Reese MA, Combat Rifle Crewmember. Edited and approved by Dr. Sawyer Greer MD. [email or web address] Other 10-17-2022 Evaluation note* Encounter Date Diagnosis [...] note writ ten by Jcarlos Jovel LPN, [employer] Rifle Crewmember. Edited and approved by Dr. Sawyer Greer [...] negative findings were considered in medical decision-making. [email or web address] Other 10-11-2022 Evaluation note* Encounter Date Diagnosis [...] be able to perform normal work duties. [email or web address] Other 02-23-2022 NoteChief Complaint consultation for right [...] Family History ALS (more content not included)...[facility]: Result Comment: Electronically Signed By: KHANG BARTH, Jerry Warren\Date and Time Signed: 06/10/21 16:23 [id number] Hospital Discharge instructions* Instructions* Nemo Calixto APRN [...] drive until follow up documented in this [place] [facility] [facility] Work Phone: 1(903) 659-848608-04-2021 History of Present illness Narrative* Krysten Villegas OTR/Krysta - 11/19/2020 10:42 AM EDT [facility] OCCUPATIONAL THERAPY EVALUATION - ACUTE NAME: Ana Palmer : 1970 (49 y.o.) CODE STATUS: Full Code Room: [place] [address] Date of Service: 11/19/2020 Patient Diagnosis(es): Cervical [...] Ambulation Assistance: Independent Transfer Assistance: Independent Active [place] Line Attendant: Yes 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 to work when [...] from home with family who presents to [facility] with the above deficits which impact [...] How much help for eating meals?: None AM-[facility] Inpatient Daily Activity Raw Score: 19 AM-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 Inpatient Mobility Raw Score : 18 Therapy Time: Individual Time In 901 Time Out 927 Minutes 26 gait 8 min Archana Chadwick, PT, 11/19/20 at 9:51 AM Definitions for [...] to accomplish the task documented in this [employer] Phone: 1(848) 214-915308-03-2021 NoteIntraprocedural fluoroscopic support has been provided. Please refer to the procedure report.[employer] Phone: 1(214) 645-677608-03-2021 NoteEXAMINATION: FLUORO FOR SURGICAL PROCEDURES CLINICAL HISTORY: R52 Pain ICD10 COMPARISONS: None available. FINDINGS: Fluoroscopic assistance was provided during ACDF, C5-6 and C6-7 The total radiationtime is 31.9 seconds, radiation dose is 3.62mGy.[employer] Phone: 1([phone]) 279-346408-03-2021 NoteEXAMINATION: FLUORO FOR SURGICAL PROCEDURES CLINICAL HISTORY: R52 Pain ICD10 COMPARISONS: None available. FINDINGS: Fluoroscopic assistance was provided during ACDF, C5-6 and C6-7 The total radiation time is 31.9 seconds, radiation dose is 3.62mGy. IMPRESSION: Intraprocedural fluoroscopic support has been provided. Please refer to the procedure report. Interpreted by: Leandro Spaulding MD Signed by: Leandro Spaulding MD 11/18/20 [facility] resultLincoln [facility] HospitalEvaluation + Plan note Future Appointments Appointment Date:07/24/2021 01:20:00 PM Scheduled Provider:Jerry QUIÑONEZ MD Location:[facility] Appointment Type: Post Op 15 General Surgery [place] Evaluation note* Diagnosis Cervical spondylosis with myelopathy Cervical stenosis of spine Spinal stenosis in cervical region Cervical radiculopathy Brachial neuritis or radiculitis nos documented in this encounter [employer] Phone: [email or web address] note* Diagnosis Post-op pain- Primary Other acute postoperative pain Pain Generalized pain Muscle spasm Spasm of muscle Cervical cord compression with myelopathy (HCC) Unspecified disease of spinal cord documented in this encounter [employer] Phone: evaluation note* Diagnosis Pain Generalized pain documented in this encounter [employer] Phone: evaluation noteNo InformationNort [employer] Other Evaluation noteNo assessment information available [facility] Work Phone: Evaluation note* Diagnosis Onset Date Resolution Status Aftercare following left hip joint replacement surgery acute [facility] Work Phone: Evaluation note* Diagnosis Well woman exam with routine gynecological exam Routine gynecological examination Encounter for screening mammogram for malignant neoplasm of breast Asymptomatic menopausal state Dyspareunia in female documented in this encounter [facility] general Narrative - Reported* Type Description Date Medical History Arthritis Medical History high cholesterol Medical History migraine headache Medical History chronic depression Medical History anxiety Surgical History C section Surgical History hernia repair Surgical History hysterectomy Surgical History neck biopsy Hospitalization History see surgical hx [email or web address] Other History general Narrative - Reported* Type Description Date Medical History Arthritis Medical History high cholesterol Medical History migraine headache Medical History chronic depression Medical History anxiety Surgical History C section Surgical History hernia repair Surgical History hysterectomy Surgical History neck biopsy Surgical History LTHA 01/31/2023 Hospitalization History see surgical hx [email or web address] Other Hospital course Narrative No data available for this section [facility] [place] [facility] Discharge instructions* Attachments The following attachments cannot be sent through Care Everywhere. * Sedation: General Info (Citizen [place]) [facility] [employer] Work Phone: Hospital Discharge instructions No data available for this section [facility] [place] [facility] Discharge instructions Additional Instructions Joint Replacement Discharge Instructions Your safety during your recovery process is important to us. Please seek immediate emergency care if you have sudden chest pain or shortness of breath. Additionally, please call our office at [phone] should any of the following occur: wound [...] nonoperative side. Try to wear these as 24/7 as possible to help decrease swelling. Weight Bearing, Walkers, and Canes: Do not remove your knee immobilizer. Do not walk without this until your therapist has removed it either on the first day after surgery or the second day after surgery. Do not attempt to walk without your walker and your customer care representative until the therapist checks you the following [...] and/or laxatives as directed. You may take orwz-nsm-vmpphdy Benadryl if itching occurs without a rash or hives. Icing and elevation will help relieve pain as well, do not underestimate the power of ice and elevation. We do recommend that you stop taking narcotic pain medications by 4-6 weeks after surgery and if necessary, continue to use anti-inflammatory medications such as Mobic (meloxicam), Celebrex (celecoxib), or an vkxf-gdg-umtzkfq medication (Aleve, Motrin, Ibuprofen, etc). Driving an [...] feel free to call our office at [phone]. You are a priority of ours and we will not be upset with you if you call. We would much rather you call to confirm aspects of your recovery process as opposed to possibly hindering your recovery with inappropriate care. We are committed to providing you with the best care possible. Edison Veronica II, MD Updated 07/02/2022[facility] Work Phone: Reason for Referral Status Reason Specialty Diagnoses / Procedures Referre d By Contact Referred To Contact Closed Radiology Diagnoses Cervical spondylosis with myelopathy Cervical stenosis of spine Cervical radiculopathy Procedures MRI CERVICAL SPINE WO CONTRAST Mejia Griffin MD [address] [id number] Status Reason Specialty Diagnoses / Procedures Referre d By Contact Referred To Contact Closed Radiology Diagnoses Pain Procedures Fluoro For Surgical Procedures Mejia Griffin MD [address] [facility] [address] [place] [address] Reason *Waiting for appt Evaluate and Treat Sacroiliac and Trochanteric Bursitis L Hip Diagnosis 1 Inflammation of left sacroiliac joint (M46.1) Diagnosis 2 Greater trochanteric bursitis of left hip (M70.62) Referral Organization [facility] Ne urosurgery Referring Provider First Name Santiago Referring Provider Last Name Jerome Referring Provider Specialty Neurologica l Surgery Referred Organization [facility] Pain Managemen t Bone [place] Referred Provider Sawyer Greer Referred Address [address] [facility] [place], [place],[address] Referred Provider Specialty Pain Medicin e Referral Priority Routine General Notes Nisa Zelaya 022 10:44:35 AM >Received today and sent P2P Reason severe left hip/ helen in/ thigh pain Diagnosis 1 Osteoarthritis of le ft hip (M16.12) Referral Organization [facility] Pain Managemen t Bone [place] Referring Provider First Name Sawyer Referring Provider Last Name Zoey Referring Provider Specialty Pain Medici ne Referred Organization [facility] Referred Provider Edison Veronica II Referred Address [address] [facility] [place], [place],[address] Referred Provider Specialty Orthopedic S urgery Referral [...] CERVICAL SPINE WO CONTRAST Mejia Griffin MD [address] [facility] [address] [place] [address] Status Reason Specialty Diagnoses / Procedures Re ferred By Contact Referred To Contact Diagnoses Cervical stenosis (uterine cervix) Cervical radiculopathy Spondylosis Cord compression (HCC) STENOSIS, RADICULOPATHY, SPONDYLOSIS, CORD COMPRESSION Procedures ME SPINAL FUSION,ANT,EA ADNL LEVEL ME LUMB SP FUSN,POST INTERBDY,EA ADDNL ME ARTHRODESIS ANT INTERBODY INC DISCECTOMY, CERVICAL BELOW C2 ME C-LAMINOPLASTY W/GRAFT/PLATE, 2 OR MORE ANTERIOR INSTRUMENTATION 2-3 VERTEBRAL SEGMENTS ME ALLOGRAFT FOR SPINE SURGERY ONLY STRUCTURAL ME ARTHRODESIS ANT INTERBODY INC DISCECTOMY CERVICAL BELOW C2 EA ADDL A.C.D.F (ANTERIOR CERVICAL DISKECTOMY FUSION) C5-6 C6-7 WITH POSTERIOR DECOMPRESSION LAMINOPLASTY SPANNING FROM C3-4-5-6/ 2 HRS/ 1 C-ARM. NUVASIVE/ S.S.E.P, PAT AT [facility] Mejia Griffin MD [address] [place] [address] [facility] Reason Comments Gynecologic Exam INFORMATION SOURCE (unrecogn ized section and content) DATE CREATED AUTHOR [facility] [place] DATE CREATED AUTHOR AUTHOR'S ORGANIZ ATION 11/22/2020 [facility] [place] DATE CREATED AUTHOR AUTHOR'S ORGANIZ ATION 08/16/2021 Alonzo Whalen [facility] DATE CREATED AUTHOR AUTHOR'S ORGANIZ ATION 09/24/2022 [facility] DATE CREATED AUTHOR AUTHOR'S ORGANIZ ATION 02/04/2024 [facility] Ordered Prescriptions (unrec ognized section [...] 100 mL IVPB (COMPLETED) 2,000 mg, Intravenous, ADMIRALTY LAWYER TO [employer].R., 1 dose, On Tue11/18/20 at [...] Switch to gravity)1114 (Canceled Entry - Provider: KATYA Dash CRNA)1447 (Stopped - Provider: KATYA Dash TAG STRINGER)1544 (New Bag - Provider: Juliane Alonso RN) PRN Medication Order 11/17/2020 11/18/2020 11/19/2020 0.9 [...] hour of each other unless specifically ordered. 214 (Given - Provider: Natalee Salcido RN) 0423 [...] 24 hours. 1800 (Given - Provider: Wolf Coppola, DEV) 0151 (Given - Provider: Ekaterina Stone LPN)0829 [...] BE BASED ON THE PRIMARY CLINICAL RECORDS. [employer] [facility]. provides no warranty or guarantee of the accuracy or completeness of information in this document.
--- NOTE | 2024-04-30 07:45 | XR_ITS ---
The [address] [address] Patient Name: ANA PALMER MRN: [id number] date: 1970 Sex: F Assigned Patient Location: [facility] Current Patient Location: [facility] Accession/Order Number: [id number] Exam Date: 04/30/2024 07:35 Report Date: 04/30/2024 08:37 At the request of: USMAN ROSS Procedure: XR DEXA axial skeleton EXAMINATION: XR DEXA axial skeleton, 04/30/2024 7:35 AM EST HISTORY: well women and post hysterectomy COMPARISON: None. TECHNIQUE: Dual-energy X-ray absorptiometry (DEXA) bone density study performed for the axial skeleton. FINDINGS: Bone mineral density of the AP spine L1-L4 measures 1.163 g/sq cm. T score -0.1. Normal Lowest bone density is in the right femoral neck measuring 0.773 g/sq cm. T score -1.9. Osteopenia XR/XR DEXA axial skeleton IMPRESSION: Osteopenia. Moderate fracture risk Pharmacologic treatment recommendations * No uniform recommendation applies to all patients. Management plans must be individualized. * Consider initiating pharmacologic treatment in postmenopausal women and men >= 50 years of age who have the following: Primary fracture prevention: * T-score <= - 2.5 at the femoral neck, total hip, lumbar spine, 33% radius (some uncertainty with existing data) by DXA. * Low bone mass (osteopenia: T-score between - 1.0 and - 2.5) at the femoral neck or total hip by DXA with a 10-year hip fracture risk >= 3% or a 10-year major osteoporosis-related fracture risk >= 20% (i.e., clinical vertebral, hip, forearm, or proximal humerus) based on the [place]-adapted FRAXregistered model. Secondary fracture prevention: * Fracture of the hip or vertebra regardless of BMD [4, 5]. * Fracture of proximal humerus, pelvis, or distal forearm in persons with low bone mass (osteopenia: T-score between - 1.0 and - 2.5). The decision to treat should be individualized in persons with a fracture of the proximal humerus, pelvis, or distal forearm who do not have osteopenia or low BMD [12, 13]. Stephanie Graff MS SL, Dayana KL, Delio EM, Rahel KG, AJ, Chandana ES. The clinician's guide to prevention and treatment of osteoporosis. Osteoporos Int. 2021;33(10):0124-6488. doi: 10.1007/e16834-551-54585-d. Epub 2021Aug 13. Erratum in: Osteoporos Int. 2021Nov 12;: PMID: [id number]; PMCID: [id number]. Electronically authenticated by: ALE GERBER Date: 04/30/2024 08:37
== END 2024-04-30 07:14 | disposition home or self-care (01) ==
LOC: MAMMO 07:13
PROVIDERS: PCP Family Medicine; Visit Provider Obstetrics & Gynecology
DX: Z00.00 Encounter for general adult medical examination without abnormal findings (principal); Z12.31 Encounter for screening mammogram for malignant neoplasm of breast; Z80.6 Family history of leukemia; M85.80 Other specified disorders of bone density and structure, unspecified site
CPT/HCPCS: 77063; 77067; 77080

== ENCOUNTER 2024-07-21 11:12 | Outpatient (OUT) | payer BC, SELFPAY ==
--- OUTSIDE RECORDS SUMMARY | 2024-07-21 11:17 | XMS_ITS | CCD ---
Author Organization [facility] Care Team Providers Care Cash Poster Name Role Phone Gina Javier MD Primary Care Provider [phone] GINA JAVIER Primary Care Unavailable GINA JAVIER Referring Unavailable ELIAS, MEJIA H. Admitting Unavailable ELIAS, MEJIA H. Attending Unavailable ELIAS, MEJIA H. Attending Unavailable ELIAS, MEJIA H. Referring Unavailable GINA JAVIER Primary Care Unavailable GINA JAVIER Primary Care Unavailable ELIAS, MEJIA H. Referring Unavailable Gina Javier Primary Care Physician Santiago Cano Unavailable Sawyer Greer Unavailable MD Gina Javier Primary Care Provider [phone] MD Sawyer Greer Attending Provider [phone] GINA AVALOS Consulting Unavailable HOY ., [...] DR FUENTES Admitting Unavailable HOY ., DR FUNETES Attending Unavailable BUZZ, DR ALE Sheppard Consulting Unavailable HOY ., DR FUENTES Consulting Unavailable HOY ., DR FUENTES Primary Care Unavailable HOY ., DR FUENTES Admitting Unavailable HOY ., DR FUENTES Attending Unavailable MD Gina Javier Primary Care Provider [phone] MD Edison Veronica II Attending Provider Edison Veronica II Unavailable MD Gina Javier Primary Care Provider [phone] MD Edison Veronica II Attending Provider [phone] MD Gina Javier Primary Care Provider [phone] MD Edison Veronica II Attending Provider MD Gina Javier Primary Care Provider [phone] MD Edison Veronica II Attending Provider [phone] Edison Veronica II Admitting UnavailGina Fofana Primary Care Unavailable Edison Veronica II Attending UnavailGina Fofana Primary Care Unavailable Edison Veronica II Attending UnavailEdison Diaz II Admitting UnavailGina Fofana Primary Care Unavailable Edison Veronica II Attending Unavailabl e Edison Veronica II Admitting Unavailabl e Unavailable Primary Care Provider UnavailGina Fofana MD Primary Care Provider [phone] Allergies Allergy Classification Reported Allergen(s) Allergy Type Date of Onset Reaction(s) Facility grepafloxacin (3 sources) grepafloxacin Drug Allergy 1 [facility] (12 sources) grepafloxacin; Translations: [grepafloxacin] Drug Allergy 1 Skin reaction (observable entity) [facility] [place] (2 sources) grepafloxacin Drug Allergy [facility] Repository (8 sources) Adhesive Tape; Translations: [adhesive tape] Propensity to adverse reactions 3 Itching [facility] (1 source) grepafloxacin Drug Allergy 3 [facility] Repository Medications Current Medications Medication Drug [...] oral capsule (7 sources) Start: 01-20-2023 take 60525 ug by mouth once daily Biotin Active 01763 MCG PO Daily January 20, 2023 12:00am [...] Days Not-Taking/PRN estradiol 0.1 mg/ml vaginal cream (6 sources) Estrogen Start: 03-14-2024 End: 06-12-2024 estradiol [...] by mouth once daily Multiple Vitamins-Minerals (THERAPEUTIC MULTIVITAMIN-POLICY CHANGE CLERK ALS) tablet Take 1 tablet by mouth [...] 2023 12:00am take 1 capsule by mo ut every [...] 8:18am docusate sodium 50 mg / sennosides, half-way 8.6 mg oral tablet (9 sources) Start: [...] Once a day Not-Taking/PRN polyethylene glycol 3350 00649 mg powder for oral solution (7 sources) [...] 02-02-2024 Chronic Other aftercare (1 source) Other mcfp (current) drug therapy Episodic Other connective tissue [...] Arthrodesis status Episodic Other female genital disorders (4 sources) Pain in female genitalia on intercourse; [...] GDLNon AGE GDLN ACOG TESTING Note . [facility] Comment on above: TESTS RESULT FLAG UN ITS REF RANGE LAB Clinician Provided Cytology Information Source.............Vagina No. of containers..01 ThinPrep Vial Age Algo ACOG Darline... 30-65 01 FLAG LEGEND: L-Low Normal,H-High Normal,LL-Alert Low,HH-Alert High <-Panic Low,>-Panic High,A-Abnormal,AA-Critical Abnormal Performed at: 01 =G [address] [address] Michelle Rahman MD, HPV APTIMA Negative Negative [facility] Comment on above: This nucleic acid am plification test detects fourteen high- risk HPV types (16,18,31,33,35,39,45,51,52,56,58,59,66,68) without differentiation. Performed at: =G - [facility] [address] [place] [id number] Risk Mgr: Michelle Rahman MD, Phone: [phone] Performed at: [facility] [address] [address] [place], [place] [id number] Risk Mgr: Chris Enriquez MD, Phone: [phone] IGP, APTIMA HPV, RFX 16/18,45 Note . [facility] Comment on above: TESTS RESULT FLAG UN ITS REF RANGE LAB DIAGNOSIS: 02 NEGATIVE FOR INTRAEPITHELIAL LESION OR MALIGNANCY. CELLULAR CHANGES ASSOCIATED WITH ATROPHY ARE PRESENT. THIS SPECIMEN WAS RESCREENED PART OF OUR LAST IRONER PROGRAM. Specimen adequacy: 02 Satisfactory for evaluation. Performed by: 02 Chanelle Padilla, Electronic Scale Subassembler (ASC) QC reviewed by: 02 Simon Wong, Electronic Scale Subassembler (ASCP) . 02 Note: Note 03 The Pap [...] High,A-Abnormal,AA-Critical Abnormal Performed at: 02 [facility] [place] [address] [address] [place] [address] Chris Enriquez MD, 03 WB [facility] [place] [address] [place] [address] Michelle Rahman MD, SPATULA-ALONE [facility] XR hip LT min 2V(w/wo pelvis )*on 02-02-2024 XR hip LT min 2V(w/wo pelvis)* [facility] [address] [place] [address] XRay Report Signed Patient: Ana Palmer MR#: [id number] : 1970 Acct:[id number] Age/Sex: 53 / F ADM Date: 02/02/24 Loc: [facility] Room: Type: [facility] Attending Dr: Edison Veronica II, MD [...] Radha Godinez M.D.02/02/2024 9:56 AM Dictation Location: [place] [address] Transcribed By: [facility] 02/02/24 0956 Dictated By: Radha Godinez MD 02/02/24 0950 Signed By: 02/02/24 0956 Normal [facility] XR hip LT min 2V(w/wo pelvis )*on 04-20-2023 XR hip LT min 2V(w/wo pelvis)* [facility] [employer] Other XR hip LT min 2V(w/wo pelvis)* [facility] [place] [employer] Other XR hip LT min 2V(w/wo pelvis)* [address] [facility] [employer] Other XR hip LT min 2V(w/wo pelvis)* [place] [address] [employer] Other XR hip LT min 2V(w/wo pelvis)* XRay Report [employer] Other XR hip LT min 2V(w/wo pelvis)* Signed [employer] Other XR hip LT min 2V(w/wo pelvis)* Patient: Ana Palmer MR#: [id number] [employer] Other XR hip LT min 2V(w/wo pelvis)* : 1970 Acct:[id number] [employer] Other XR hip LT min 2V(w/wo pelvis)* Age/Sex: 52 / F ADM Date: 04/20/23 [employer] Other XR hip LT min 2V(w/wo pelvis)* Loc: [facility] Room: Type: [facility] [employer] Other XR hip LT min 2V(w/wo pelvis)* Attending Dr: Edison Veronica II, MD [employer] Other XR hip LT min 2V(w/wo pelvis)* Copies to: Edison Veronica MD [employer] Other XR hip LT min 2V(w/wo pelvis)* Ordering Provider: Edison Veronica MD [employer] Other XR hip LT min 2V(w/wo pelvis)* Date of Service: 04/20/23 [employer] Other XR hip LT min 2V(w/wo pelvis)* XR/XR hip LT min 2V(w/wo pelvis)*: S/P total left hip arthroplasty [employer] Other XR hip LT min 2V(w/wo pelvis)* AP PELVIS AND LEFT HIP - 2 views: [employer] Other XR hip LT min 2V(w/wo pelvis)* CLINICAL HISTORY: Follow-up left hip replacement [employer] Other XR hip LT min 2V(w/wo pelvis)* COMPARISON: 03/17/2023 [employer] Other XR hip LT min 2V(w/wo pelvis)* AP view of the pelvis and crosstable lateral view of the left hip were obtained. A left hip [employer] Other XR hip LT min 2V(w/wo pelvis)* prosthesis is again visualized. The hardware appears intact and unchanged from the prior. There is [employer] Other XR hip LT min 2V(w/wo pelvis)* no developing fracture or dislocation. There is minor sclerosis at the SI joints. There are no [employer] Other XR hip LT min 2V(w/wo pelvis)* significant soft tissue abnormalities. [employer] Other XR hip LT min 2V(w/wo pelvis)* XR/XR hip LT min 2V(w/wo pelvis)* [employer] Other XR hip LT min 2V(w/wo pelvis)* IMPRESSION: [employer] Other XR hip LT min 2V(w/wo pelvis)* STABLE LEFT HIP REPLACEMENT [employer] Other XR hip LT min 2V(w/wo pelvis)* Impression dictated by: Radha Godinez M.D.04/20/2023 11:47 AM [employer] Other XR hip LT min 2V(w/wo pelvis)* Dictation Location: [facility] [employer] Other XR hip LT min 2V(w/wo pelvis)* Transcribed By: SAAD 04/20/23 1147 [employer] Other XR hip LT min 2V(w/wo pelvis)* Dictated By: Radha Godinez MD 04/20/23 1140 [employer] Other XR hip LT min 2V(w/wo pelvis)* Signed By: [employer] Other XR hip LT min 2V(w/wo pelvis)* 04/20/23 114 [employer] Other XR hip LT min 2V(w/wo pelvis)* [place] [address] XRay Report Signed Patient: Ana Palmer MR#: [id number] : 1970 Acct:[id number] Age/Sex: 52 / F ADM Date: 04/20/23 Loc: [facility] Room: Type: [facility] Attending Dr: Edison Veronica II, MD [...] 1146 Signed By: 04/20/23 1147 Normal [facility] XR hip LT min 2V(w/wo pelvis )*on 03-17-2023 XR hip LT min 2V(w/wo pelvis)* [place] [address] XRay Report Signed Patient: Ana Palmer MR#: [id number] : 1970 Acct:[id number] Age/Sex: 52 / F ADM Date: 03/17/23 Loc: [facility] Room: Type: [facility] Attending Dr: Edison Veronica II, MD [...] Wes Serrano M.D.03/17/2023 1:05 PM Dictation Location: [facility]--12 Transcribed By: SAAD 03/17/23 1305 Dictated By: Wes Serrano DO 03/17/23 1304 Signed By: 03/17/23 1305 Normal [facility] Glucose Glucometer (BldC) [M ass/Vol]Ordered By: Edison Veronica on 01-31-2023 Glucose [Mass/Vol] 179 mg/dL [facility] Comment on above: Random Glucose Refer ence Range is dependent on time and content of last meal. Glucose of more than 200 mg/dL in a nonstressed, ambulatory subject supports the diagnosis of Diabetes Mellitus. Automated erythrocytes count in urine sediment (number/area)Ordered By: Edison Veronica on 01-20-2023 RBC Auto (Urine sed) [#/Area] None seen [HPF] 0-4 [facility] Automated leukocytes count i n urine sediment (number/area)Ordered By: Edison Veronica on 01-20-2023 WBC Auto (Urine sed) [#/Area] 3-4 [HPF] 0-4 [facility] Basophils Auto (Bld) [#/Vol] Ordered By: Edison Veronica on 01-20-2023 Basophils (Bld) [#/Vol] 0.0 10*3/uL 0.0-0.2 [facility] Basophils/100 WBC Auto (Bld) Ordered By: Edison Veronica on 01-20-2023 Basophils/100 WBC (Bld) 1.0 % . [facility] Bilirubin Test strip Ql (U)O rdered By: Edison Veronica on 01-20-2023 Bilirubin Ql (U) Negative Negative [facility] Calcium [Mass/volume] in Ser um or PlasmaOrdered By: Edison Veronica on 01-20-2023 Calcium [Mass/Vol] 9.2 mg/dL 8.6-10.3 [facility] Carbon dioxide, total [Moles /volume] in Serum or PlasmaOrdered By: Edison Veronica on 01-20-2023 CO2 [Moles/Vol] 29.0 mmol/L 21.0-31.0 [facility] Chloride [Moles/volume] in S sima or PlasmaOrdered By: Edison Veronica on 01-20-2023 Chloride [Moles/Vol] 103 mmol/L 98-107 [facility] Color Auto (U)Ordered By: Lilian Veronica on 01-20-2023 Color (U) Yellow Yellow [facility] Creatinine [Mass/volume] in Serum or PlasmaOrdered By: Edison Veronica on 01-20-2023 Creatinine [Mass/Vol] 0.67 mg/dL 0.60-1.20 [facility] Eosinophils Auto (Bld) [#/Vo l]Ordered By: Edison Veronica on 01-20-2023 Eosinophils (Bld) [#/Vol] 0.0 10*3/uL 0.0-0.45 [facility] Eosinophils/100 WBC Auto (Bl d)Ordered By: Edison Veronica on 01-20-2023 Eosinophils/100 WBC (Bld) 0.0 % . [facility] Erythrocyte distribution wid th Auto (RBC) [Ratio]Ordered By: Edison Veronica on 01-20-2023 Erythrocyte distribution width (RBC) [Ratio] 14.0 % 11.9-15.3 [facility] Fructosamine [Moles/volume] in Serum or PlasmaOrdered By: Edisno Veronica on 01-20-2023 Fructosamine [Moles/Vol] 196 umol/L 0-285 [facility] Comment on above: Published reference interval for apparently healthysubjects between age 20 and 60 is 205 - 285 umol/L and in apoorly controlled diabetic population is 228 - 563 umol/Lwith a mean of 396 umol/L.Performed at: [employer] Director: Lane Rivera PhD, Phone: [phone] Glucose [Mass/volume] in Ser um or PlasmaOrdered By: Edison Veronica on 01-20-2023 Glucose [Mass/Vol] 149 mg/dL 70-100 [facility] Comment on above: ADA recommended refe rence rangeRandom Glucose Reference Range is dependent on time and content of last meal. Glucose of more than 200 mg/dL in a nonstressed, ambulatory subject supports the diagnosis of Diabetes Mellitus. Hematocrit Auto (Bld) [Volum e fraction]Ordered By: Edison Veronica on 01-20-2023 Hematocrit (Bld) [Volume fraction] 36.6 % 34.0-46.4 [facility] Hemoglobin [Mass/volume] in BloodOrdered By: Edison Veronica on 01-20-2023 Hemoglobin (Bld) [Mass/Vol] 12.3 g/dL 11.8-15.4 [facility] Ketones Auto test strip (U) [Mass/Vol]Ordered By: Edison Veronica on 01-20-2023 Ketones (U) [Mass/Vol] Negative Negative [facility] Laboratory - UrinalysisOrder ed By: Edison Veronica on 01-20-2023 Hyaline casts LM Ql (Urine sed) None seen [LPF] 0-8 [facility] Leukocytes [#/volume] correc carola for nucleated erythrocytes in Blood by Automated counOrdered By: Edison Veronica on 01-20-2023 WBC corrected for nucl RBC Auto (Bld) [#/Vol] 3.5 10*3/uL 3.8-11.6 [facility] Lymphocytes Auto (Bld) [#/Vo l]Ordered By: Edison Veronica on 01-20-2023 Lymphocytes (Bld) [#/Vol] 1.3 10*3/uL 1.00-4.8 [facility] Lymphocytes/100 WBC Auto (Bl d)Ordered By: Edison Veronica on 01-20-2023 Lymphocytes/100 WBC (Bld) 36.7 % . [facility] MCH Auto (RBC) [Entitic mass ]Ordered By: Edison Veronica on 01-20-2023 MCH (RBC) [Entitic mass] 27.3 pg 24.7-34.3 [facility] MCHC Auto (RBC) [Mass/Vol]Or dered By: Edison Veronica on 01-20-2023 MCHC (RBC) [Mass/Vol] 33.5 g/dL 32.0-35.0 [facility] MCV Auto (RBC) [Entitic vol] Ordered By: Edison Veronica on 01-20-2023 MCV (RBC) [Entitic vol] 81.4 fL 80-100 [facility] Monocytes Auto (Bld) [#/Vol] Ordered By: Edison Veronica on 01-20-2023 Monocytes (Bld) [#/Vol] 0.3 10*3/uL 0.0-0.8 [facility] Monocytes/100 WBC Auto (Bld) Ordered By: Edison Veronica on 01-20-2023 Monocytes/100 WBC (Bld) 7.2 % . [facility] Neutrophils Auto (Bld) [#/Vo l]Ordered By: Edison Veronica on 01-20-2023 Neutrophils (Bld) [#/Vol] 2.0 10*3/uL 1.8-7.7 [facility] Neutrophils/100 WBC Auto (Bl d)Ordered By: Edison Veronica on 01-20-2023 Neutrophils/100 WBC (Bld) 55.1 % . [facility] Nitrite Test strip Ql (U)Ord ered By: Edison Veronica on 01-20-2023 Nitrite Ql (U) Negative Negative [facility] No Panel InformationOrdered By: Edison Veronica on 01-20-2023 Estimated GFR (CKD-EPI) > 60.0 mL/Min [facility] Creatinine Clearance (Chem N/A [facility] Nucleated erythrocytes [Pres ence] in Blood by Automated countOrdered By: Edison Veronica on 01-20-2023 Nucleated RBC Auto Ql (Bld) 0.1 /100{WBC} 0-0.5 [facility] Platelet mean volume Auto (B ld) [Entitic vol]Ordered By: Edison Veronica on 01-20-2023 Platelet mean volume (Bld) [Entitic vol] 8.2 fL 6.3-10.7 [facility] Platelets Auto (Bld) [#/Vol] Ordered By: Edison Veronica on 01-20-2023 Platelets (Bld) [#/Vol] 248 10*3/uL 150-450 [facility] Potassium [Moles/volume] in Serum or PlasmaOrdered By: Edison Veronica on 01-20-2023 Potassium [Moles/Vol] 4.3 mmol/L 3.5-5.1 [facility] Protein Auto test strip (U) [Mass/Vol]Ordered By: Edison Veronica on 01-20-2023 Protein (U) [Mass/Vol] Negative Negative [facility] RBC Auto (Bld) [#/Vol]Ordere d By: Edison Veronica on 01-20-2023 RBC (Bld) [#/Vol] 4.50 10*6/uL 3.60-5.00 [facility] Serum or plasma anion gap de terminationOrdered By: Edison Veronica on 01-20-2023 Anion gap [Moles/Vol] 11.3 mmol/L 6.0-15.0 [facility] Sodium [Moles/volume] in Ser um or PlasmaOrdered By: Edison Veronica on 01-20-2023 Sodium [Moles/Vol] 139 mmol/L 136-145 [facility] Specific gravity Auto test s trip (U) [Rel density]Ordered By: Edison Veronica on 01-20-2023 Specific gravity (U) [Rel density] 1.008 1.001-1.03 0 [facility] Squamous epithelial cells de tection in urine sediment by light microscopyOrdered By: Edison Veronica on 01-20-2023 Epithelial cells.squamous LM Ql (Urine sed) None seen [HPF] 0-2 [facility] Urea nitrogen [Mass/volume] in Serum or PlasmaOrdered By: Edison Veronica on 01-20-2023 Urea nitrogen [Mass/Vol] 16 mg/dL 7-25 [facility] Urine bacteria detection by automated methodOrdered By: Edison Veronica on 01-20-2023 Bacteria Auto Ql (U) None seen None Seen [facility] Urine clarity by refractomet ry automatedOrdered By: Edison Veronica on 01-20-2023 Clarity Refractometry automated (U) Clear Clear [facility] Urine glucose measurement by automated test strip (mass/volume)Ordered By: Edison Veronica on 01-20-2023 Glucose Auto test strip (U) [Mass/Vol] Normal mg/dL Normal [facility] Urine hemoglobin detection b y automated test stripOrdered By: Edison Veronica on 01-20-2023 Hemoglobin Auto test strip Ql (U) Negative Negative [facility] Urine leukocyte esterase det ection by automated test stripOrdered By: Edison Veronica on 01-20-2023 Leukocyte esterase Auto test strip Ql (U) 2+ Negative [facility] Urobilinogen Auto test strip (U) [Mass/Vol]Ordered By: Edison Vreonica on 01-20-2023 Urobilinogen (U) [Mass/Vol] Normal mg/dL Normal [facility] WBC Auto (Bld) [#/Vol]Ordere d By: Edison Veronica on 01-20-2023 WBC (Bld) [#/Vol] 3.5 10*3/uL 3.8-11.6 [facility] pH Auto test strip (U)Ordere d By: Edison Veronica on 01-20-2023 pH (U) 6.0 [pH] 5.0-9.0 [facility] Albumin [Mass/volume] in Ser um or Plasma by Bromocresol green (BCG) dye binding methoOrdered By: Edison Veronica on 12-24-2022 Albumin BCG dye [Mass/Vol] 4.5 g/dL 3.5-5.7 [facility] Cotinine [Mass/volume] in Se rum or PlasmaOrdered By: Edison Veronica on 12-24-2022 Cotinine [Mass/Vol] <1.0 ng/mL . [facility] Comment on above: This test was develo ped and its performance characteristicsdetermined by [employer]. It has not been cleared orapproved by the Food and Drug Administration.Cotinine levels greater than 20.0 are consistent with theuse of tobacco or tobacco cessation products.Performed at: [employer] [id number] Director: Antonio Dumont MD, Phone: [phone] Glucose mean value [Mass/vol ume] in Blood Estimated from glycated hemoglobinOrdered By: Edison Veronica on 12-24-2022 Average glucose Estimated from glycated hemoglobin (Bld) [Mass/Vol] 111 mg/dL [facility] Hemoglobin A1c percentageOrd ered By: Edison Veronica on 12-24-2022 HbA1c (Bld) [Mass fraction] 5.5 % 4.3-5.6 [facility] Comment on above: Increased risk for d iabetes: 5.7 - 6.4diabetes: >6.4glycemic control for adults with diabetes: <7.0 Hemoglobin [Mass/volume] in BloodOrdered By: Edison Veronica on 12-24-2022 Hemoglobin (Bld) [Mass/Vol] 13.0 g/dL 11.8-15.4 [facility] Nicotine [Mass/volume] in Se rum or PlasmaOrdered By: Edison Veronica on 12-24-2022 Nicotine [Mass/Vol] <1.0 ng/mL . [facility] Comment on above: This test was develo ped and its performance characteristicsdetermined by [employer]. It has not been cleared orapproved by the Food and Drug Administration.Nicotine levels greater than 2.0 are consistent with theuse of tobacco or tobacco cessation products. Vitamin D+Metabolites [Mass/ volume] in Serum or PlasmaOrdered By: Edison Veronica on 12-24-2022 Vitamin D+Metabolites [Mass/Vol] 50.9 ng/mL 30-100 [facility] Comment on above: VITAMIN D STATUS [...] (Unsp spec) No MRSA Isolated 2 Days [facility] MRSA isol Org specific cx Ql (Unsp spec) No MRSA Isolated 2 Days [facility] MG MAMM SCREEN 3D ADALBERTO CADon 09-09-2022 MG MAMM SCREEN 3D ADALBERTO CAD Patient: ANA PALMER Exam Date: 09/09/2022 : 1970 Gender:F Ordering : DR GINA JAVIER . Admission #: [id number] Family : Order #: [id number] CLICK HERE TO VIEW EXAM RADIOLOGY REPORT [...] aml cancer at age 24. LOCATION: [facility] BREAST COMPOSITION: Heterogeneously dense,which may [...] MD on 09/09/2022 at 12:06 Normal [facility] CBC AUTO DIFFon 07-08-2022 BASO # 0.0 103/ul Normal 0.0-0.1 [facility] Comment on above: Performed By: #### C BC #### [facility] [address] [place] [address] [address] Juliana Brooks Basophils/100 WBC (Bld) 0.9 % Normal 0.2-2.0 [facility] Comment on above: Performed By: #### C BC #### [facility] [address] [place] [address] Dr. Juliana Brooks EO # 0.0 103/ul Normal 0.0-0.7 [facility] Comment on above: Performed By: #### C BC #### [facility] [address] [place] [address] [address] Juliana Brooks Eosinophils/100 WBC (Bld) 0.4 % Critically low 0.9-7.0 [facility] Comment on above: Performed By: #### C BC #### [facility] [address] [place] [address] [address] Juliana Brooks Erythrocyte distribution width (RBC) [Ratio] 16.3 % Critically high 11.0-15.0 [facility] Comment on above: Performed By: #### C BC #### [facility] [address] [place] [address] Dr. Juliana Brooks Hematocrit (Bld) [Volume fraction] 37.3 % Normal 36.0-48.0 [facility] Comment on above: Performed By: #### C BC #### [facility] [address] [place] [address] Dr. Juliana Brooks Hemoglobin (Bld) [Mass/Vol] 11.1 g/dL Critically low 12.0-16.0 [facility] Comment on above: Performed By: #### C BC #### [facility] [address] [place] [address] Dr. Juliana Brooks IG # 0.01 10e3/ul Normal 0.00-0.03 [facility] Comment on above: Performed By: #### C BC #### [facility] [address] [place] [address] Dr. Juliana Brooks IG % 0.2 % Normal 0.0-0.5 [facility] Comment on above: Performed By: #### C BC #### [facility] [address] [place] [address] Dr. Juliana Brooks LYMPH # 1.6 103/ul Normal 1.2-3.8 [facility] Comment on above: Performed By: #### C BC #### [facility] [address] [place] [address] Dr. Juliana Brooks Lymphocytes/100 WBC (Bld) 33.0 % Normal 20.5-60.0 [facility] Comment on above: Performed By: #### C BC #### [facility] [address] [place] [address] Dr. Juliana Brooks MANUAL DIFF REQ NO Normal [facility] Comment on above: Performed By: #### C BC #### [facility] [address] [place] [address] Dr. Juliana Brooks MCH (RBC) [Entitic mass] 23.2 pg Critically low 26.7-34.0 [facility] Comment on above: Performed By: #### C BC #### [facility] [address] [place] [address] Dr. Juliana Brooks MCHC (RBC) [Mass/Vol] 29.8 g/dL Critically low 29.9-35.2 [facility] Comment on above: Performed By: #### C BC #### [facility] [address] [place] [address] Dr. Juliana Brooks MCV (RBC) [Entitic vol] 78.0 fL Critically low 81.0-99.0 [facility] Comment on above: Performed By: #### C BC #### [facility] [address] [address] [address] Juliana Brooks MONO # 0.5 103/ul Normal 0.3-0.8 [facility] Comment on above: Performed By: #### C BC #### [facility] [address] [address] [address] Juliana Brooks Monocytes/100 WBC (Bld) 10.0 % Normal 1.7-12.0 [facility] Comment on above: Performed By: #### C BC #### [facility] [address] [address] [address] Juliana Brooks NEUT # 2.6 103/ul Normal 1.4-6.5 [facility] Comment on above: Performed By: #### C BC #### [facility] [address] [place] [address] Dr. Juliana Brooks Neutrophils/100 WBC (Bld) 55.5 % Normal 43.0-75.0 [facility] Comment on above: Performed By: #### C BC #### [facility] [address] [place] [address] Dr. Juliana Brooks Platelet mean volume (Bld) [Entitic vol] 10.2 fL Normal 9.5-13.5 [facility] Comment on above: Performed By: #### C BC #### [facility] [address] [place] [address] Dr. Juliana Brooks PLT 320 103/ul Normal 150-450 [facility] Comment on above: Performed By: #### C BC #### [facility] [address] [place] [address] Dr. Juliana Brooks RBC 4.78 106/ul Normal 4.20-5.40 [facility] Comment on above: Performed By: #### C BC #### [facility] [address] [place] [address] Dr. Juliana Brooks WBC 4.7 103/ul Normal 4.0-11.0 [facility] Comment on above: Performed By: #### C BC #### [facility] [address] [address] [address] Juliana Brooks FREE THYROXINE INDEX T7on FTI 3.24 Normal 1.30-4.50 [facility] Comment on above: Performed By: #### T 7, TSH, CMP, LIPID #### [facility] [address] [address] [address] Juliana Brooks T3U 36.0 % Normal 30.0-39.0 [facility] Comment on above: Performed By: #### T 7, TSH, CMP, LIPID #### [facility] [address] [address] [address] Juliana Brooks T4 [Mass/Vol] 9.00 ug/dL Normal 4.80-13.90 [facility] Comment on above: Performed By: #### T 7, TSH, CMP, LIPID #### [facility] [address] [place] [address] Dr. Juliana Brooks GLYCOHEMOGLOBIN A1Con 2022 ADA RECOMMENDATION SEE BELOW Normal [facility] Comment on above: Result Comment: ADA RECOMMENDED LIMIT 4.0 - 6.0 ADA THERAPEUTIC TARGET < 7.0 ACTION SUGGESTED > 7.0 Performed By: #### A 1C #### [facility] [address] [place] [address] Dr. Juliana Brooks Glucose [Mass/Vol] 137 mg/dL Normal [facility] Comment on above: Performed By: #### A 1C #### [facility] [address] [place] [address] Dr. Juliana Brooks HbA1c (Bld) [Mass fraction] 6.4 % Critically high 4.5-6.2 [facility] Comment on above: Performed By: #### A 1C #### [facility] [address] [place] [address] Dr. Juliana Brooks IRONon 07-08-2022 Iron [Mass/Vol] 54.0 ug/dL Normal 50.0-170.0 [facility] Comment on above: Performed By: #### I SARAH #### [facility] [address] [place] [address] Dr. Juliana Brooks LIPID PROFILEon 07-08-2022 CHOL-HDL RATIO NORM SEE BELOW Normal [facility] Comment on above: Result Comment: 3.3 - 4.4 LOW RISK 4.4 - 7.1 AVERAGE RISK 7.1 - 11.0 MODERATE RISK >11.0 HIGH RISK Performed By: #### T 7, TSH, CMP, LIPID #### [facility] [address] [address] [address] Juliana Brooks Cholesterol [Mass/Vol] 159 mg/dL Normal <=200 [facility] Comment on above: Performed By: #### T 7, TSH, CMP, LIPID #### [facility] [address] [address] [address] Juliana Brooks Cholesterol in HDL [Mass/Vol] 74 mg/dL Critically high 40-60 [facility] Comment on above: Performed By: #### T 7, TSH, CMP, LIPID #### [facility] [address] [address] [address] Juliana Brooks Cholesterol in LDL [Mass/Vol] 74.4 mg/dL Normal [facility] Comment on above: Performed By: #### T 7, TSH, CMP, LIPID #### [facility] [address] [address] [address] Juliana Brooks Cholesterol.total/Cho lesterol in HDL [Mass ratio] 2.1 {ratio} Normal [facility] Comment on above: Performed By: #### T 7, TSH, CMP, LIPID #### [facility] [address] [address] [address] Juliana Brooks HDL NORMAL > or = 60 mg/dl - LO W CARDIOVASCULAR RISK <40 mg/dl - HIGH CARDIOVASCULAR RISK Normal [facility] Comment on above: Performed By: #### T 7, TSH, CMP, LIPID #### [facility] [address] [address] [address] Juliana Brooks LDL CALC NORMAL SEE BELOW Normal [facility] Comment on above: Result Comment: <100 mg/dl OPTIMAL 100 - 129 mg/dl NEAR OR ABOVE OPTIMAL 130 - 159 mg/dl BORDERLINE HIGH 160 - 189 mg/dl HIGH >190 mg/dl VERY HIGH Performed By: #### T 7, TSH, CMP, LIPID #### [facility] [address] [address] [address] Juliana Brooks Triglyceride [Mass/Vol] 53 mg/dL Normal <=150 [facility] Comment on above: Performed By: #### T 7, TSH, CMP, LIPID #### [facility] [address] [address] [address] Juliana Brooks VLDL CALC 10.6 mg/dL Normal [facility] Comment on above: Performed By: #### T 7, TSH, CMP, LIPID #### [facility] [address] [place] [address] Dr. Juliana Brooks PROF 14(COMP METB)on 023 Albumin [Mass/Vol] 3.6 g/dL Normal 3.4-5.0 [facility] Comment on above: Performed By: #### T 7, TSH, CMP, LIPID #### [facility] [address] [place] [address] Dr. Juliana Brooks Albumin/Globulin [Mass ratio] 1.1 {ratio} Normal [facility] Comment on above: Performed By: #### T 7, TSH, CMP, LIPID #### [facility] [address] [place] [address] Dr. Juliana Brooks ALP [Catalytic activity/Vol] 107 U/L Normal 46-116 [facility] Comment on above: Performed By: #### T 7, TSH, CMP, LIPID #### [facility] [address] [place] [address] Dr. Juliana Brooks ALT [Catalytic activity/Vol] 26 U/L Normal 14-59 [facility] Comment on above: Performed By: #### T 7, TSH, CMP, LIPID #### [facility] [address] [place] [address] Dr. Juliana Brooks Anion gap [Moles/Vol] 11.1 mmol/L Normal [facility] Comment on above: Performed By: #### T 7, TSH, CMP, LIPID #### [facility] [address] [place] [address] Dr. Juliana Brooks AST [Catalytic activity/Vol] 19 U/L Normal 15-37 [facility] Comment on above: Performed By: #### T 7, TSH, CMP, LIPID #### [facility] [address] [address] [address] Juliana Brooks Bilirubin [Mass/Vol] 0.3 mg/dL Normal 0.2-1.0 [facility] Comment on above: Performed By: #### T 7, TSH, CMP, LIPID #### [facility] [address] [address] [address] Juliana Brooks Calcium [Mass/Vol] 9.2 mg/dL Normal 8.5-10.1 [facility] Comment on above: Performed By: #### T 7, TSH, CMP, LIPID #### [facility] [address] [place] [address] Dr. Juliana Brooks Chloride [Moles/Vol] 106 mmol/L Normal 98-107 [facility] Comment on above: Performed By: #### T 7, TSH, CMP, LIPID #### [facility] [address] [place] [address] Dr. Juliana Brooks CO2 [Moles/Vol] 28.3 mmol/L Normal 21.0-32.0 [facility] Comment on above: Performed By: #### T 7, TSH, CMP, LIPID #### [facility] [address] [place] [address] Dr. Juliana Brooks Creatinine [Mass/Vol] 0.60 mg/dL Normal 0.55-1.02 [facility] Comment on above: Performed By: #### T 7, TSH, CMP, LIPID #### [facility] [address] [place] [address] Dr. Juliana Brooks EGFR-AF CAMEROONIAN >60 Normal >=60 [facility] Comment on above: Performed By: #### T 7, TSH, CMP, LIPID #### [facility] [address] [place] [address] Dr. Juliana Brooks EGFR-NON AF CAMEROONIAN >60 Normal >=60 [facility] Comment on above: Performed By: #### T 7, TSH, CMP, LIPID #### [facility] [address] [address] [address] Juliana Brooks Globulin (S) [Mass/Vol] 3.4 g/dL Normal [facility] Comment on above: Performed By: #### T 7, TSH, CMP, LIPID #### [facility] [address] [address] [address] Juliana Brooks Glucose [Mass/Vol] 104 mg/dL Normal 74-106 [facility] Comment on above: Performed By: #### T 7, TSH, CMP, LIPID #### [facility] [address] [address] [address] Juliana Brooks Potassium [Moles/Vol] 4.4 mmol/L Normal 3.5-5.1 [facility] Comment on above: Performed By: #### T 7, TSH, CMP, LIPID #### [facility] [address] [place] [address] Dr. Juliana Brooks Protein [Mass/Vol] 7.0 g/dL Normal 6.4-8.2 [facility] Comment on above: Performed By: #### T 7, TSH, CMP, LIPID #### [facility] [address] [address] [address] Juliana Brooks Sodium [Moles/Vol] 141 mmol/L Normal 136-145 [facility] Comment on above: Performed By: #### T 7, TSH, CMP, LIPID #### [facility] [address] [address] [address] Juliana Brooks Urea nitrogen [Mass/Vol] 11.0 mg/dL Normal 7.0-18.0 [facility] Comment on above: Performed By: #### T 7, TSH, CMP, LIPID #### [facility] [address] [place] [address] Dr. Juliana Brooks Urea nitrogen/Creatinine [Mass ratio] 18.3 mg/mg Normal [facility] Comment on above: Performed By: #### T 7, TSH, CMP, LIPID #### [facility] [address] [address] [address] Juliana Brooks TSHon 07-08-2022 TSH Qn m[IU]/L Critically low 0.358-3.74 0 [facility] Comment on above: Performed By: #### T 7, TSH, CMP, LIPID #### [facility] [address] [address] [address] Juliana Brooks MRI LSPINE WO CONon [...] by: IRENE AGUILERA Date: 2021-12-24 16:08 Normal [facility] XR LSPINE MIN 4 VIEWSon [...] by: ALE GERBER Date: 2021-11-26 18:41 Normal [facility] Ambulatory Visit Summaryon 0 07-24-2021 [...] Reducible right inguinal hernia Sleep apnea Normal [facility] General Surgery Office/Clini c Noteon 07-24-2021 [...] inactivated - Not Given Patient Refuses Normal [facility] Comment on above: Result Comment: Elec [...] Follow-Up Appointments Tuesday 1:20 PM EDT With: KHANG BARTH, Jerry Randolph Where: General Surgery Nill/Said Fatemeh [facility] General Surgery Office/Clini c Noteon 07-10-2021 General [...] inactivated - Not Given Patient Refuses Normal [facility] Comment on above: Result Comment: Elec tronically Signed By: KHANG BARTH, Jerry Randolph\.br\Date and Time Signed: 07/10/21 14:23 EDT Operative Reporton Operative Report [id number]#1.00CD:127 [facility] Lab Reportson 06-29-2021 Lab Reports [id number]#1.00CD:127 [facility] ECG 12-Leadon 06-24-2021 ECG 12-Lead [id number]#1.00CD:127 [facility] Pre-Certification Formon Pre-Certification Form [id number]#1.00CD:127 [facility] RAD - CT Reporton 06-14-2021 RAD - CT Report [id number]#1.00CD:127 [facility] Consent for Procedure/Surger yon 06-11-2021 Consent for Procedure/Surgery [id number]#1.00CD:127 [facility] Ambulatory Visit Summaryon 0 06-10-2021 Ambulatory Visit [...] Radiculopathy of cervical spine Sleep apnea Normal [facility] Physician Referralon 022 Physician Referral [id number]#1.00CD:127 Normal [facility] FLUORO FOR SURGICAL PROCEDUR ESOrdered By: Mejia Griffin on 11-18-2020 Jamie, Efraín Incoming R adiant Results From [employer] - 11/18/2020 2:23 PM EDT EXAMINATION: FLUORO FOR SURGICAL PROCEDURES CLINICAL HISTORY: R52 Pain ICD10 COMPARISONS: None available. FINDINGS: Fluoroscopic assistance was provided during ACDF, C5-6 and C6-7 The total radiation time is 31.9 seconds, radiation dose is 3.62mGy. IMPRESSION: Intraprocedural fluoroscopic support has been provided. Please refer to the procedure report. [employer] Work Phone: [employer] Work Phone: Surgical Specimenon 11-19-19 21 Surgical Specimen [facility] [address] [place], [place] [id number] FINAL SURGICAL PATHOLOGY REPORT Patient Name: ANA PALMER Accession No: [id number] Age Sex: 1970 Location: [facility] [id number] Account No: [id number] Collected: 11/18/2020 [facility] Rec No: [id number] Received: 11/18/2020 Attend Phys: MEJIA GRIFFIN Completed: [...] in toto in three cassettes following decalcification. RAFY/JOELLE CPT: 66623 X1 11114 X1 JERAMIE ERVIN M.D. 11/20/2020 Electronically signed out by Page 1 of 1 Invalid Interpretation Code [facility] Comment on above: Performed By: #### S UR #### [facility] [address] [place] [id number] COVID-19, PCRon 11-08-2020 SARS-CoV-2 (COVID-19) RNA AISHA+probe Ql (Unsp spec) Not detected Normal Not Detect [facility] Comment on above: Result Comment: Test ing was performed using [employer] SARS-CoV-2 Assay. Negative results do not preclude [...] oropharyngeal and mid-turbinate specimens. Patient Fact Sheet: https://www.fda.gov/media/215489/download Provider Fact Sheet: https://www.fda.gov/media/803778/download FDA Specimen Types Link: https://www.fda.gov/medical-devices/ hckrzmfregd-ihlhk-92-nsx-uwjehxc-ghatvkd/yjrn-xcytlzi-qpcv-cov-2 Methodology: RT-PCR Performed By: #### C OVB #### [facility] [address] [place] [address] CBC With Platelet No Differe ntialon 11-07-2020 Erythrocyte distribution width (RBC) [Ratio] 15.8 % Critically high 11.5-14.5 [facility] Comment on above: Performed By: #### C BCND #### [facility] [address] [place] [address] Hematocrit (Bld) [Volume fraction] 37.5 % Normal 37.0-47.0 [facility] Comment on above: Performed By: #### C BCND #### [facility] [address] [place] [address] Hemoglobin (Bld) [Mass/Vol] 12.1 g/dL Normal 12.0-16.0 [facility] Comment on above: Performed By: #### C BCND #### [facility] [address] [place] [address] MCH (RBC) [Entitic mass] 26.2 pg Low 27.0-31.3 [facility] Comment on above: Performed By: #### C BCND #### [facility] [address] [place] [address] MCHC 32.3 % Low 33.0-37.0 [facility] Comment on above: Performed By: #### C BCND #### [facility] [address] [place] [address] MCV (RBC) [Entitic vol] 81.3 fL Low 82.0-100.0 [facility] Comment on above: Performed By: #### C BCND #### [facility] [address] [place] [address] Platelets (Bld) [#/Vol] 301 10*3/uL Normal 130-400 [facility] Comment on above: Performed By: #### C BCND #### [facility] [address] [place] [address] RBC (Bld) [#/Vol] 4.61 10*6/uL Normal 4.20-5.40 [facility] Comment on above: Performed By: #### C BCND #### [facility] [address] [place] [address] WBC (Bld) [#/Vol] 3.7 10*3/uL Low 4.8-10.8 [facility] Comment on above: Performed By: #### C BCND #### [facility] [address] [place] [address] Partial Thromboplastin Timeo n 11-07-2020 aPTT Coag (Bld) [Time] 28.0 s Normal 24.4-36.8 [facility] Comment on above: Result Comment: Effe ctive 02/20/2020: Heparin Therapeutic Range: 64.0 ? 98.0 seconds. Performed By: #### P TT #### [facility] [address] [place] [address] Prothrombin Timeon INR Coag (PPP) [Relative time] 1.0 {INR} Normal [facility] Comment on above: Performed By: #### P T #### [facility] [address] [place] [address] PT Coag (PPP) [Time] 13.3 s Normal 12.3-14.9 [facility] Comment on above: Performed By: #### P T #### [facility] [address] [place] [address] Type and Screen Capture 3 sc rn cellon 11-07-2020 Type and Screen Capture 3 scrn cell PATIENT: ESTELA PEREZ LOC: [facility] BILL# : [id number] : 1970 SEX: F ORDERED BY: TIM CASTILLO ORDERED : 11/07/2020 13:32 COLLECTED: 11/07/2020 13:32 ORDER : [id number] RECEIVED : 11/07/2020 19:33 TEST NAME RESULT UNITS RANGES ABN FL ST ABORH Capture O POS F Antibody 3 Cell Scrn Captu NEG F Normal [facility] Comment on above: Performed By: #### T S3C #### [facility] [address] [place] [address] MRI CERVICAL SPINE WO CONTRA STOrdered By: [...] gland, may consider dedicated thyroid ultrasound imaging. [facility] Work Phone: EXAMINATION: MRI CER VICAL SPINE [...] hypertrophy with mild left neural foraminal narrowing. [employer] Work Phone: Ajmie, Chpo Incoming R adiant Results From [employer] - 09/10/2020 12:02 PM EDT EXAMINATION: MRI [...] gland, may consider dedicated thyroid ultrasound imaging. [employer] Phone: [facility]ILL Phone: MRI CERVICAL SPINE WO CONTRA STon [...] Leandro Spaulding MD 09/10/20 Final result Normal [facility] COVID-19, NAAon 09-04-2020 SARS-CoV-2 (COVID-19) RNA AISHA+probe Ql (Unsp spec) Not detected Normal Not Detect [facility] Comment on above: Result Comment: This nucleic acid amplification test was developed and its performance characteristics determined by [employer]. Nucleic acid amplification tests include RT-PCR and [...] detected) result in this assay. Performed at: [address] [id number] Risk Mgr: Lane Rivera PhD, Phone: [phone] Performed By: #### I RCOV #### [facility] [address] [place] [id number] COVID-19, NAAon 09-02-2020 Source Swab Anterior nares Normal [facility] Comment on above: Performed By: #### I RCOV #### [facility] [address] [place] [id number] Vital Signs Date Time Vital Sign Value Performing Clinician Facility 05-30-2024 15:46-0500 Body mass index (BMI) [Ratio] 31.18 kg/m2 Ze Viviane DO Work Phone: [facility] 05-30-2024 15:46-0500 Body weight 79.83 kg Ze Viviane DO Work Phone: [facility] 05-30-2024 15:46-0500 Diastolic blood pressure 78 mm[Hg] Ze Viviane DO Work Phone: [facility] 05-30-2024 15:46-0500 Systolic blood pressure 122 mm[Hg] Ze Viviane DO Work Phone: [facility] 02-16-2023 15:45-0400 Body height 162.56 cm Edison Winston II Other [employer] Other 02-16-2023 15:45-0400 Body mass index (BMI) [Ratio] 25.4 kg/m2 Edison Winston II Other [employer] Other 02-16-2023 15:45-0400 Body weight 67.13 kg Edison Winston II Other [employer] Other 01-31-2023 18:30-0400 Diastolic blood pressure 78 mm[Hg] MD Gina Javier Work Phone: [facility] 01-31-2023 18:30-0400 Heart rate 98 /min MD Gina Javier Work Phone: [facility] 01-31-2023 18:30-0400 Respiratory rate 16 /min MD Gina Javier Work Phone: [facility] 01-31-2023 18:30-0400 SaO2% (BldA) [Mass fraction] 96 % MD Gina Javier Work Phone: [facility] 01-31-2023 18:30-0400 Systolic blood pressure 116 mm[Hg] MD Gina Javier Work Phone: [facility] 01-31-2023 16:45-0400 Body temperature 98 [degF] MD Gina Javier Work Phone: [facility] 01-31-2023 16:15-0400 Inhaled oxygen flow rate 10 L/min MD iGna Javier Work Phone: [facility] 01-31-2023 12:49-0400 Body height 160.02 cm MD Gian Javier Work Phone: [facility] 01-31-2023 12:49-0400 Body mass index (BMI) [Ratio] 26.5 kg/m2 MD Gina Javier Work Phone: [facility] 01-31-2023 12:49-0400 Body weight 68 kg MD Gina Javier Work Phone: [facility] 01-27-2023 15:30-0400 Body height 162.56 cm Edison Veronica II Other [employer] Other 01-27-2023 15:30-0400 Body mass index (BMI) [Ratio] 25.44 kg/m2 Edison Veronica II Other [employer] Other 01-27-2023 15:30-0400 Body weight 67.22 kg Edison Veronica II Other [employer] Other 07-05-2022 12:15-0400 Body height 162.56 cm Sawyer Greer Other [employer] Other 01-26-2022 10:40-0400 Body height 162.56 cm Santiago Cano Other [employer] Other 01-26-2022 10:40-0400 Body mass index (BMI) [Ratio] 36.9 kg/m2 Santiago Cano Other [employer] Other 01-26-2022 10:40-0400 Body weight 97.52 kg Santiago Cano Other [employer] Other 07-24-2021 13:31-0400 Body temperature 97.88 [degF] Jerry QUIÑONEZ General Surgery [place] 07-10-2021 14:00-0400 Body temperature 97.34 [degF] Jerry QUIÑONEZ General Surgery [place] 11-19-2020 08:27-0400 Body temperature 98.1 [degF] Mejia Griffin MD Work Phone: [employer] Work Phone: 11-19-2020 08:27-0400 Diastolic blood pressure 78 mm[Hg] Mejia Griffin MD Work Phone: [employer] Work Phone: 11-19-2020 08:27-0400 Heart rate 109 /min Mejia Griffin MD Work Phone: [facility] Phone: 11-19-2020 08:27-0400 SaO2% (BldA) [Mass fraction] 98 % Mejia Griffin MD Work Phone: [employer] Work Phone: 11-19-2020 08:27-0400 Systolic blood pressure 118 mm[Hg] Mejia Griffin MD Work Phone: [employer] Work Phone: 11-19-2020 04:29-0400 Respiratory rate 18 /min Mejia Griffin MD Work Phone: [employer] Work Phone: 11-18-2020 08:30-0400 Body height 162.6 cm Mejia Griffin MD Work Phone: [employer] Work Phone: 11-18-2020 08:30-0400 Body mass index (BMI) [Ratio] 34.84 kg/m2 Mejia Griffin MD Work Phone: [employer] Work Phone: 11-18-2020 08:30-0400 Body weight 92.08 kg Mejia Griffin MD Work Phone: [employer] Work Phone: 09-09-2020 14:57-0400 Diastolic blood pressure 75 mm[Hg] [place] [facility] [employer] Work Phone: 09-09-2020 14:57-0400 Heart rate 93 /min [place] [facility] [employer] Work Phone: 09-09-2020 14:57-0400 Respiratory rate 16 /min [place] [facility] [employer] Work Phone: 09-09-2020 14:57-0400 Systolic blood pressure 169 mm[Hg] [place] [facility] [employer] Work Phone: 09-09-2020 12:41-0400 Body height 162.6 cm [place] [facility] Work Phone: 09-09-2020 12:41-0400 Body mass index (BMI) [Ratio] 34.67 kg/m2 [place] [address] [facility] Phone: 09-09-2020 12:41-0400 Body weight 91.63 kg [place] [facility] Phone: 09-09-2020 12:41-0400 SaO2% (BldA) [Mass fraction] 99 % [place] [address] [facility] Phone: Encounters Encounter Date Encounter Type Care Provider Facility Start: 05-30-2024 End: 05-30-2024 Office outpatient visit 15 minutes Ze Viviane DO Work Phone: [facility] Comment on above: Dyspareunia in femal e Start: 05-30-2024 End: 05-30-2024 Bamboo flowsheet Ze Viviane DO Work Phone: [facility] Start: 05-30-2024 End: 05-30-2024 Bamboo flowsheet Ze Viviane DO Work Phone: [facility] Start: 03-13-2024 End: 03-26-2024 Clinisync Result Encounter Ze Viviane DO Work Phone: [facility] Unsolicited Start: 03-13-2024 End: 03-26-2024 Clinisync Result Encounter Ze Viviane DO Work Phone: [facility] Unsolicited Start: 03-13-2024 End: 03-13-2024 Patient encounter procedure Ze Viviane DO Work Phone: [facility] Start: 03-13-2024 End: 03-13-2024 Periodic preventive med est patient 40-64yrs Ze Viviane DO Work Phone: [facility] Comment on above: Well woman exam with routine gynecological exam; Encounter for screening mammogram for malignant neoplasm of breast; Asymptomatic menopausal state; Dyspareunia in female Start: 02-02-2024 End: 02-02-2024 ambulatory MD Gina Javier Work Phone: [facility] Work Phone: Start: 02-02-2024 End: 02-02-2024 Patient encounter procedure MD Gina Javier Work Phone: [facility] Work Phone: Start: 04-20-2023 Office outpatient vi sit 15 minutes Edison Veronica II [facility] Start: 04-20-2023 End: 04-20-2023 Patient encounter procedure MD Gina Javier Work Phone: [facility] Start: 04-20-2023 End: 04-20-2023 ambulatory MD Gina Javier Work Phone: [facility] Work Phone: Start: 03-17-2023 End: 03-17-2023 Patient encounter procedure MD Gina Javier Work Phone: [facility] Start: 03-17-2023 End: 03-17-2023 ambulatory MD Gina Javier Work Phone: [facility] Work Phone: Start: 03-03-2023 (Post-Op) Post-Op Edison Winston II [facility] Start: 03-03-2023 End: 03-03-2023 ambulatory Edison Winston II Other [employer] Other Start: 02-16-2023 (Post-Op) Post-Op Edison Winston II [facility] Start: 02-16-2023 End: 02-16-2023 ambulatory Edison Winston II Other [employer] Other Start: 02-10-2023 (Post-Op) Post-Op Edison Winston II [facility] Start: 02-10-2023 End: 02-10-2023 ambulatory Edison Jeremías II Other [employer] Other Start: 02-09-2023 End: 02-09-2023 ambulatory Edison Winston II Other [employer] Other Start: 02-09-2023 Telephone encounter Edison Winston II [facility] Start: 01-31-2023 End: 01-31-2023 Admission to same day surgery center MD Gina Javier Work Phone: [facility] [place] Start: 01-31-2023 End: 01-31-2023 ambulatory MD Gina Javier Work Phone: [facility] Work Phone: Start: 01-27-2023 End: 01-27-2023 Discharged Recurring MD Gina Javier Work Phone: [facility] [place] Start: 01-27-2023 End: 01-27-2023 ambulatory MD Gina Javier Work Phone: [employer] Other Start: 01-27-2023 Patient encounter procedure Edison Winston II [facility] Start: 01-21-2023 (Prolonged) Prolonge d Services Edison Jeremías II [facility] Start: 01-21-2023 End: 01-21-2023 ambulatory Edison Winston II Other [employer] Other Start: 01-20-2023 End: 01-20-2023 ambulatory MD Gina Javier Work Phone: [facility] Work Phone: Start: 01-20-2023 End: 01-20-2023 Patient encounter procedure MD Gina Javier Work Phone: [facility]-Pre-Surgical Testing Work Phone: Start: 12-24-2022 End: 12-24-2022 ambulatory MD Gina Javier Work Phone: [facility] Work Phone: Start: 12-24-2022 End: 12-24-2022 Patient encounter procedure MD Gina Javier Work Phone: [facility] Start: 12-24-2022 End: 12-24-2022 ambulatory MD Gina Javier Work Phone: [facility] Work Phone: Start: 12-24-2022 End: 12-24-2022 Patient encounter procedure MD Gina Javier Work Phone: [facility] Start: 12-16-2022 End: 12-16-2022 ambulatory Sawyer Greer Other [employer] Other Start: 12-16-2022 Office outpatient vi sit 25 minutes Sawyer Greer [facility] [place] Start: 12-16-2022 Telephone encounter Sawyer Greer [facility] [place] Start: 09-09-2022 End: 09-10-[address] GINA JAVIER . Facility: Start: 08-24-2022 End: 08-24-2022 Patient encounter procedure MD Gina Javier Work Phone: [facility] Start: 08-24-2022 End: 08-24-2022 ambulatory MD Gina Javier Work Phone: [facility] Work Phone: Start: 08-24-2022 Office outpatient vi sit 25 minutes Sawyer Greer [facility] [place] Start: 08-16-2022 (Procedure) Tulio Greer [facility] Start: 08-16-2022 End: 08-16-2022 ambulatory Sawyer Greer Other [employer] Other Start: 08-04-2022 End: 08-04-2022 ambulatory Sawyer Barromana Other [employer] Other Start: 08-04-2022 Office outpatient vi sit 25 minutes Sawyer Greer [facility] [place] Start: 07-11-2022 Encounter for genera l adult medical examination without abnormal findings DR GINA JAVIER . [facility] Start: 07-08-2022 End: 07-09-[address] GINA JAVIER . Facility:[facility] Start: 07-08-2022 End: 07-09-2022 Encounter for general adult medical examination without abnormal findings DR GINA JAVIER . Facility:[facility] Start: 07-05-2022 End: 07-05-2022 ambulatory Sawyer Greer Other [employer] Other Start: 07-05-2022 Office outpatient vi sit 25 minutes Sawyer Greer [facility] [place] Start: 04-19-[address] GINA JAVIER . Facili ty:[facility] Start: 02-23-2022 End: 02-23-2022 ambulatory Sawyer Greer Other [employer] Other Start: 02-23-2022 Office outpatient vi sit 15 minutes Saywer Greer [facility] [place] Start: 02-15-2022 (Procedure) Short Sawyer Greer [facility] Start: 02-15-2022 End: 02-15-2022 ambulatory Sawyer Greer Other [employer] Other Start: 02-01-2022 End: 02-01-2022 ambulatory Sawyer Greer Other [employer] Other Start: 02-01-2022 Office outpatient ne w 45 minutes Sawyer Greer [facility] [place] Start: 02-01-2022 Telephone encounter Sawyer Greer [facility] [employer] Start: 01-26-2022 End: 01-26-2022 ambulatory Santiago Cano Other [employer] Other Start: 01-26-2022 Office outpatient ne w 45 minutes Santiago PLATT [facility] Start: 12-24-2021 End: 12-25-[address] GINA JAVIER . Facility:[facility] Start: 11-26-2021 End: 11-27-[address] GINA JAVIER . Facility:[facility] Start: 07-24-2021 End: 07-24-2021 Patient encounter procedure Jerry Randolph NILL [facility] [place] Start: 07-10-2021 End: 07-10-2021 Patient encounter procedure Jerry Randolph NILL [facility] [place] Start: 11-18-2020 End: 11-19-2020 Evaluation and management of inpatient [facility] Start: 11-18-2020 End: 11-21-2020 ambulatory MEJIA GRIFFIN [facility] Start: 11-18-2020 End: 11-19-2020 Evaluation and management of inpatient Mejia Griffin MD Work Phone: [facility] Comment on above: Post-op pain (Primar y Dx); Pain; Muscle spasm Start: 11-18-2020 End: 11-20-2020 Subsequent hospital visit by physician Mejia Griffin MD Work Phone: [facility] Radiology Comment on above: Pain Start: 09-09-2020 End: 09-12-2020 ambulatory [facility] Start: 09-09-2020 End: 09-11-2020 Subsequent hospital visit by physician Andres Mri Room 2 [facility] MRI Comment on above: Cervical spondylosis with [...] [place] Comment on above: right section Jerry NIL L Colonoscopy Jerry QUIÑONEZ Exploratory laparotomy Luis suman QUIÑONEZ Total abdominal hysterectomy with bilateral salpingo-oophorectomy Jerry QUIÑONEZ Plan of Treatment Date Care Activity Detail Author Start: 03-19-2025 End: 03-19-2025 Patient encounter procedure 03/19/2025 8:30 AM EST Office Visit [facility] [address] [place] [address] Ze Pan, DO [address] [place] [address] [facility] Start: 05-30-2024 End: 05-30-2024 Patient encounter procedure 05/30/2024 3:20 PM EST Office Visit [facility] [address] [place] [id number] Ze Pan, DO [address] [place] [address] Arrived [facility] Comment on above: Arrived Start: 03-13-2024 End: 03-13-2025 DXA Skeletal system Views for bone density DEXA bone density Imaging Routine Well woman exam with routine gynecological exam Asymptomatic menopausal state Expected: 03/13/2024 (Approximate), Expires: 03/13/2025 [facility] Comment on above: Expected: 03/13/2024 (Approximate), Expires: 03/13/2025 Start: 03-13-2024 End: 05-13-2025 MG Breast - bilateral Screening Bilateral screening mammogram Imaging Routine Well woman exam with routine gynecological exam Encounter for screening mammogram for malignant neoplasm of breast Expected: 03/13/2024, Expires: 05/13/2025 [facility] Work Phone: Comment on above: Expected: 03/13/2024 , Expires: 05/13/2025 Start: 02-02-2024 Plain X-ray of left hip XR hip LT min 2V(w/wo pelvis)* [facility] Start: 02-02-2024 XR Hip - left 2 Views F [facility] Start: 01-31-2023 [facility] Start: 01-31-2023 [facility] Start: 01-31-2023 Physical therapy procedure [facility] Start: 01-20-2023 [facility] Start: 12-24-2022 MRSA Culture MRSA Culture [facility] Start: 12-17-2020 Influenza vaccination [facility] [employer] Work Phone: Start: 12-05-2020 End: 12-05-2020 Patient encounter procedure 12/05/2020 Office Visit Neurosurgery Mejia Griffin MD [address] [facility] [address] [place], [place] [id number] [facility] Start: 09-19-2020 End: 09-19-2020 Patient encounter procedure 09/19/2020 Office Visit Neurosurgery Mejia Griffin MD [address] [facility] [address] [place], [place] [id number] [facility] Neurosurgery Start: 12-13-2019 Screening for malign ant neoplasm of breast Breast cancer screen [facility] Phone: Start: 12-13-2019 Screening for malign ant neoplasm of colon Colon cancer screen colonoscopy [facility] Phone: Start: 12-13-2019 Shingles Vaccine (1 of 2) Shingles Vaccine (1 of 2) [facility] Phone: Start: 2014 Screening for malign ant neoplasm of colon Colon cancer screen colonoscopy [facility] Phone: Start: 2009 Diabetes screen Diabetes screen [facility] Phone: Start: 1990 Screening for malign ant neoplasm of cervix Cervical cancer screen [facility] Phone: Start: 1988 DTaP/Tdap/Td vaccine (1 - Tdap) DTaP/Tdap/Td vaccine (1 - Tdap) [facility] Phone: Start: 1984 HIV screening HIV screen [facility] Work Phone: Start: 1981 COVID-19 Vaccine (1) COVID-19 Vaccin e (1) [facility] Phone: Start: 12-13-1979 Lipid panel Lipid screen [facility] Work Phone: Start: 1969 Creatinine measurement Creatinine mo nitoring [facility] Phone: Start: 1969 Hepatitis C screening Hepatitis C sc reen [facility] Phone: Start: 1969 Potassium monitoring Potassium monit oring [facility] Phone: Continuous pulse oximetry Pulse oximetry, continuous Respiratory Care Routine Every 4hr until discontinued starting 11/18/2020 [facility] Phone: Comment on above: Every 4hr until disc ontinued starting 11/18/2020 Cotinine [Mass/volum e] in Serum or Plasma [facility] End: 11-18-2020 Fluoroscopy during operation FLUORO FOR SURGICAL PROCEDURES Imaging Routine Pain Once for 1 Occurrences starting 11/18/2020 until 11/18/2020 [facility] Phone: Comment on above: Once for 1 Occurrenc es starting 11/18/2020 until 11/18/2020 Fluoroscopy during operation FLUORO FOR SURGICAL PROCEDURES Imaging Routine Pain 11/18/2020 1:30 PM EDT [facility] Phone: Glucose measurement estimated from glycated hemoglobin [facility] Methicillin resistan t Staphylococcus aureus [Presence] in Unspecified specimen by Organism specific culture [facility] Nicotine [Mass/volum e] in Serum or Plasma [facility] Oxygen therapy [Mini [facility] Data Set] [facility] Phone: Comment on above: Daily until disconti nued starting 09/09/2020 Daily until disconti nued starting 11/18/2020 Phase I & II - meter ed glucose Phase I & II - metered glucose Point of Care Testing Routine As Needed until discontinued starting 09/09/2020 [facility] Phone: Comment on above: As Needed until disc ontinued starting 09/09/2020 Spirometry panel Incentive joaquín metry Respiratory Care Routine Every 2hr while awake until discontinued starting 09/09/2020 [facility] Phone: Comment on above: Every 2hr while awak e until discontinued starting 09/09/2020 Surgical Pathology [facility] Work Phone: Comment on above: Release Upon Orderin g for 1 Occurrences starting 11/18/2020 End: 11-18-2020 Surgical Pathology Surgical Pathology Lab Routine Once for 1 Occurrences starting 11/18/2020 until 11/18/2020 [facility] Work Phone: Comment on above: Once for 1 Occurrenc es starting 11/18/2020 until 11/18/2020 THIN PREP TIS PAP AN D HR HPV DNA THIN PREP TIS PAP AND HR HPV DNA Pathology and Cytology Routine Well woman exam with routine gynecological exam Ordered: 03/13/2024 [facility] Comment on above: Ordered: 03/13/2024 [facility] Immunizations Immunization Date Immunization Notes Care Provider Fa cility NEGATED: Highlighted row has not occurred!06-10-2021 influenza virus vaccine, unspecified formulation Jerry QUIÑONEZ [facility] [place] Payers Date Payer Category Payer Self-pay [id number] 2021 [facility] er [id number] 2020 Private Health Insurance [id number] 2020 Private Health Insurance [id number] 1969 Unknown [id number] [id number]. 2.182 1969 Unknown [id number] [id number]. 2.182 1969 Unknown [id number] [id number]. 2.182 1969 Unknown [id number] [id number]. 2.593 1969 Unknown [id number] [id number]. 2.593 1969 Unknown [id number] [id number]. 2.593 1969 Unknown [id number] [id number]. 2.593 1969 Unknown [id number] [id number]. 2.[address] [facility] [id number] 1960 Self-pay [id number] [facility] [id number] Private Health Insurance [employer] [id number] Unknown [id number]. 2.531 Unknown [id number]. 2.531 Unknown [id number]. 2.531 Social History Date Type Detail Facility Start: 09-02-2020 End: 01-31-2023 Tobacco smoking status NHIS Never smoker [facility] Phone: Start: 09-02-2020 End: 11-20-2020 Tobacco use and exposure Never used [facility] Start: 1970 Sex Assigned At Not on file [facility] [employer] Phone: Start: 11-07-2020 History 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 5 [facility] Phone: Start: 11-07-2020 History SDOH Food Worry 1 [facility] Phone: Start: 1970 Sex Assigned At Female [facility] [employer] Phone: Exposure to SARS-CoV -2 (event) Not sure [facility] Tobacco smoking status Never Gener [facility] [place] Sex Assigned At Female Genera l Surgery [employer] Tobacco smoking stat [facility] Tobacco smoking consumption unknown [facility] Medical Equipment Procedure Code Equipment Code Equipment Original Text Equipment Identifier Dates Arthroplasty, hip, total, anterior approach Acetabular shell [id number] FDA Start: 01-31-2023 Arthroplasty, hip, total, anterior approach Orthopaedic bone screw, non-bioabsorbable, sterile ()[id number] FDA Start: 01-31-2023 Arthroplasty, hip, total, anterior approach Orthopaedic bone screw, non-bioabsorbable, sterile ()[id number] FDA Start: 01-31-2023 Arthroplasty, hip, total, anterior approach Ceramic femoral head prosthesis ()[id number] FDA Start: 01-31-2023 Arthroplasty, hip, total, anterior approach Coated hip femur prosthesis, modular ()[id number] FDA Start: 01-31-2023 Arthroplasty, hip, total, anterior approach Non-constrained polyethylene acetabular liner ()[id number] [facility] Start: 01-31-2023 Cage Spnl W11xh8 xl14mm Lum Lord Intbdy Fus [employer] - [id number] Start: 11-18-2020 Graft Spnl W11xh [id number] Corticocancellous Lord Triad - [id number] Start: 11-18-2020 Screw Spnl L7mm Dia2.6mm Lum Lat Mass Leverage Lfs [id number] Start: 11-18-2020 Plate Spnl L42mm Ant Cerv 2 Lev Translational Randolph Acp [id number] Start: 11-18-2020 Screw Spnl L13mm Dia4mm Ant Cerv St Melanie Ang Compr Randolph Acp [id number] Start: 11-18-2020 Screw Spnl L5mm Dia2.6mm Stubbs Leverage Lfs [id number] Start: 11-18-2020 Plate Spnl Cran Caud Stubbs 9.5mm M Leverage Lfs [id number] Start: 11-18-2020 Goals Date Patient Goal Desired Activity /State Clinical Notes 11-18-2020 to 05-30-2024 Radha Mojica LPN - 05/30/2024 3:20 PM Gurmeet Mojica LPN - 03/13/2024 8:30 AM EST Note Date & Type Note Facility 05-30-2024 History of Presen t illness Narrative Reason for Appointment: Patient ID: Ana Palmer is a 53 y.o. female who presents for Follow-up (Pt present today for a f/up visit for medication Estrace.) Patient presents today for Medication Follow Up appointment. MEDICATIONS Current Outpatient Medications Medication Instructions estradiol (ESTRACE) 2 g, Vaginal, Nightly, At bedtime for one month, then at bedtime twice a week. ALLERGIES No Known Allergies PROBLEMS Active Ambulatory Problems Diagnosis Date Noted [...] No family history on file. SURGICAL HISTORY History reviewed. No pertinent surgical history. REVIEW OF SYSTEMS Review of Systems: Review of Systems Constitutional: Negative. HENT: Negative. Eyes: Negative. Respiratory: Negative. Cardiovascular: Negative. Gastrointestinal: Negative. Genitourinary: Positive for dyspareunia. Musculoskeletal: Negative. Skin: Negative. Neurological: Negative. All other systems reviewed and are negative. Hematological: Negative. Endocrine: Negative. Allergic/Immunologic: Negative. OBJECTIVE Objective: Physical Exam Constitutional: Appearance: Normal appearance. She is well-developed. Cardiovascular: Rate and Rhythm: Normal rate and regular rhythm. Pulmonary: Effort: Pulmonary effort is normal. Breath sounds: Normal breath sounds. Abdominal: General: Bowel sounds are normal. There [...] nursing note reviewed. Exam conducted with a healthcare administrator present. Vitals: Estimated body mass index is 31.18 kg/m as calculated from the following: Height as of 18: 5' 3 . Weight as of this encounter: 176 lb. BP: 122/78 No LMP recorded. Patient has had a hysterectomy. ASSESSMENT & PLAN ICD-10-CM 1. Dyspareunia in female N94.10 Pt presents to discuss estrace cream and how it is working. Pt states feels like the cream is always there. Pt advised to use the cream twice a week for two more months. Discussed dropping to once a week if feels better. Documented by Radha Mojica LPN on behalf of: Ze Pan DO documented in this encounter [facility] 03-13-2024 History of Presen t illness Narrative [...] nursing note reviewed. Exam conducted with a healthcare administrator present. Vitals: Estimated body mass index is [...] pharmacy- pt to use 1/2 applicator at for one month and then twice a [...] Ze Pan DO documented in this encounter [facility] 04-20-2023 Evaluation note Encounter Date Diagnosis Assessment Notes Apr, S/P total left hip arthroplasty (ICD-10 - Z96.642) Apr, Aftercare following joint replacement surgery (ICD-10 - Z47.1) Apr, Presence of left artificial hip joint (ICD-10 - Z96.642) Apr, Other [facility] 01[facility]2023 Overall she is doing great. [...] to call with any questions or concerns. [employer] Other 11-16-2023 Evaluation note* Encounter Date Diagnosis [...] weeks with x-rays of the left hip. [employer] Other 11-01-2023 Evaluation note* Encounter Date Diagnosis Assessment Notes Treatment Notes Treatment Clinical Notes Feb, S/P total left hip arthroplasty (ICD-10 - Z96.642) Feb, Aftercare following joint replacement surgery (ICD-10 - Z47.1) Feb, Presence of left artificial hip joint (ICD-10 - Z96.642) Feb, Other [facility] on 01/31/2023 Overall patient is doing [...] off narcotic pain medication. They can take [id number] anti-inflammatories as needed for assistance with swelling [...] examination and x-rays of the left hip. [employer] Other 10-26-2023 Evaluation note* Encounter Date Diagnosis [...] to help calm down this allergic reaction. 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 Left JILLIAN Home Medications - DVT prophylaxis: Aspirin - NSAID: Celebrex - Disposition: Same-day discharge Joints Meeting Checklist - Pharmacy: [place] to bed - Approach/Technique: anterior, Calvert bed - Implants: Avenir Complete/G7; - Anesthesia: general vs spinal - Blocks: Fascia iliaca - Preop Antibiotics: Ancef - TXA: yes-systemic - Positioning/OR Bed: supine on Calvert bed - Intraop X-ray: yes - Fraser: [...] above surgery. OARRS report generated and reviewed. [employer] Other 10-06-2023 Evaluation note* Encounter Date Diagnosis [...] patient could proceed with surgery safely. The beverage manager was vital for surgery timing and [...] plans. Prolonged services time spent: 32 minutes [employer] Other 08-31-2023 Evaluation note* Encounter Date Diagnosis [...] note writ ten by Nino Reese MA, Photographic Enlarger Operator. Edited and approved by Dr. Sawyer Greer MD. [employer] Other 08-31-2023 Evaluation note* Encounter Date Diagnosis Assessment Notes Treatment Notes Treatment Clinical Notes Nov, Osteoarthritis of left hip (ICD-10 - M16.12) [employer] Other 05-09-2023 Evaluation note* Encounter Date Diagnosis [...] note writ ten by Jcarlos Jovel LPN, Photographic Enlarger Operator. Edited and approved by Dr. Sawyer Greer MD. [employer] Other 04-19-2023 Evaluation note* Encounter Date Diagnosis [...] note writ ten by Jcarlos Jovel LPN, Photographic Enlarger Operator. Edited and approved by Dr. Sawyer Greer MD. [employer] Other 03-20-2023 Evaluation note* Encounter Date Diagnosis [...] note writ ten by Jcarlos Jovel LPN, Photographic Enlarger Operator. Edited and approved by Dr. Sawyer Greer MD. [employer] Other 11-08-2022 Evaluation note* Encounter Date Diagnosis [...] note writ ten by Nino Reese MA, Photographic Enlarger Operator. Edited and approved by Dr. Sawyer Greer MD. [employer] Other 10-17-2022 Evaluation note* Encounter Date Diagnosis [...] note writ ten by Jcarlos Jovel LPN, Photographic Enlarger Operator. Edited and approved by Dr. Sawyer Greer [...] negative findings were considered in medical decision-making. [employer] Other 10-11-2022 Evaluation note* Encounter Date Diagnosis [...] be able to perform normal work duties. [employer] Other 02-23-2022 NoteChief Complaint consultation for right inguinal hernia [facility] Staff 50 year old female presents on [...] 06/10/2021 Family History ALS (more content not included)...[facility]: Result Comment: Electronically Signed By: KHANG BARTH, Jerry Warren\Date and Time Signed: 06/10/21 16:23 [id number] Hospital Discharge instructions* Instructions* Nemo Calixto APRN [...] drive until follow up [facility] Work Phone: 1(706) 366-886908-04-2021 History of Present illness Narrative* Krysten Villegas OTR/Krysta - 11/19/2020 10:42 AM EDT [facility] OCCUPATIONAL THERAPY EVALUATION - ACUTE NAME: Ana Palmer : 1970 (49 y.o.) CODE STATUS: Full Code Room: 24/N224[facility] Date of Service: 11/19/2020 Patient Diagnosis(es): Cervical [...] Ambulation Assistance: Independent Transfer Assistance: Independent Active Clinical Social Work Aide: Yes Occupation: Unemployed 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 Inpatient Daily Activity Raw Score: 19 AM-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 Please refer to the procedure report.[facility] Phone: 1(126) 370-942408-03-2021 NoteEXAMINATION: FLUORO FOR SURGICAL PROCEDURES CLINICAL HISTORY: R52 Pain ICD10 COMPARISONS: None available. FINDINGS: Fluoroscopic assistance was provided during ACDF, C5-6 and C6-7 The total radiationtime is 31.9 seconds, radiation dose is 3.62mGy.WHILL Phone: 1(351) 248-851108-03-2021 NoteEXAMINATION: FLUORO FOR SURGICAL PROCEDURES CLINICAL HISTORY: R52 Pain ICD10 COMPARISONS: None available. FINDINGS: Fluoroscopic assistance was provided during ACDF, C5-6 and C6-7 The total radiation time is 31.9 seconds, radiation dose is 3.62mGy. IMPRESSION: Intraprocedural fluoroscopic support has been provided. Please refer to the procedure report. Interpreted by: Leandro Spaulding MD Signed by: Leandro Spaulding MD 11/18/20 Final [facility] Plan note Future Appointments Appointment Date:07/24/2021 01:20:00 PM Scheduled Provider:Jerry QUIÑONEZ MD Location:[facility] Appointment Type: Post Op 15 General Surgery [employer] Evaluation note* Diagnosis Cervical spondylosis with myelopathy Cervical stenosis of spine Spinal stenosis in cervical region Cervical radiculopathy Brachial neuritis or radiculitis nos documented in this encounter [employer] Work Phone: [email or web address] note* Diagnosis Post-op pain- Primary Other acute postoperative pain Pain Generalized pain Muscle spasm Spasm of muscle Cervical cord compression with myelopathy (HCC) Unspecified disease of spinal cord documented in this encounter WHILL Phone: [email or web address] note* Diagnosis Pain Generalized pain documented in this encounter WHILL Phone: [email or web address] noteNo InformationNort [employer] Other Evaluation noteNo assessment information available [facility] Work Phone: Evaluation note* Diagnosis Onset Date Resolution Status Aftercare following left hip joint replacement surgery acute [facility] Work Phone: Evaluation note* Diagnosis Well woman exam with routine gynecological exam Routine gynecological examination Encounter for screening mammogram for malignant neoplasm of breast Asymptomatic menopausal state Dyspareunia in female documented [facility]* Diagnosis Dyspareunia in female documented in this encounter [facility] Healthcare[facility] general Narrative - Reported* Type Description Date Medical History Arthritis Medical History high cholesterol Medical History migraine headache Medical History chronic depression Medical History anxiety Surgical History C section Surgical History hernia repair Surgical History hysterectomy Surgical History neck biopsy Hospitalization History see surgical hx [employer] Other Hisghmb general Narrative - Reported* Type Description Date Medical History Arthritis Medical History high cholesterol Medical History migraine headache Medical History chronic depression Medical History anxiety Surgical History C section Surgical History hernia repair Surgical History hysterectomy Surgical History neck biopsy Surgical History LTHA 01/31/2023 Hospitalization History see surgical hx [employer] Other Hospital course Narrative No data available for this section General Surgery [facility] Discharge instructions* Attachments The following attachments cannot be sent through Care Everywhere. * Sedation: General Info (Armenian) documented in this [facility] [employer] Work Phone: Hospital Discharge instructions No data available for this section General Surgery [facility] Discharge instructions Additional Instructions Joint Replacement Discharge Instructions Your safety during your recovery process is important to us. Please seek immediate emergency care if you have sudden chest pain or shortness of breath. Additionally, please call our office at [phone] should any of the following occur: wound [...] to walk without your walker and your dog day care attendant until the therapist checks you the following [...] and/or laxatives as directed. You may take giia-gne-pcxxgpi Benadryl if itching occurs without a rash or hives. Icing and elevation will help relieve pain as well, do not underestimate the power of ice and elevation. We do recommend that you stop taking narcotic pain medications by 4-6 weeks after surgery and if necessary, continue to use anti-inflammatory medications such as Mobic (meloxicam), Celebrex (celecoxib), or an rcmb-eqt-seqrbgy medication (Aleve, Motrin, Ibuprofen, etc). Driving an [...] feel free to call our office at [phone]. You are a priority of ours and we will not be upset with you if you call. We would much rather you call to confirm aspects of your recovery process as opposed to possibly hindering your recovery with inappropriate care. We are committed to providing you with the best care possible. Edison Veronica II, MD Updated 07/02/2022[facility] Work Phone: Reason for Referral Status Reason Specialty Diagnoses / Procedures Referre d By Contact Referred To Contact Closed Radiology Diagnoses Cervical spondylosis with myelopathy Cervical stenosis of spine Cervical radiculopathy Procedures MRI CERVICAL SPINE WO CONTRAST Mejia Griffin MD [address] [facility] [address] [place] [address] Status Reason Specialty Diagnoses / Procedures Referre d By Contact Referred To Contact Closed Radiology Diagnoses Pain Procedures Fluoro For Surgical Procedures Mejia Griffin MD [address] [facility] [address] [place] [address] Reason *Waiting for appt Evaluate and Treat Sacroiliac and Trochanteric Bursitis L Hip Diagnosis 1 Inflammation of left sacroiliac joint (M46.1) Diagnosis 2 Greater trochanteric bursitis of left hip (M70.62) Referral Organization [facility] Ne urosurgery Referring Provider First Name Santiago Referring Provider Last Name Jerome Referring Provider Specialty Neurologica l Surgery Referred Organization [facility] [place] Referred Provider Sawyer Greer Referred Address [address],[place],[address] Referred Provider Specialty Pain Medicin e Referral Priority Routine General Notes Nisa Zelaya M 022 10:44:35 AM >Received today and sent P2P Reason severe left hip/ helen in/ thigh pain Diagnosis 1 Osteoarthritis of le ft hip (M16.12) Referral Organization [facility] [place] Referring Provider First Name Sawyer Referring Provider Last Name Zoey Referring Provider Specialty Pain Medici ne Referred Organization [facility] Referred Provider Edison Veronica II Referred Address [address] [place], [place],[address] Referred Provider Specialty Orthopedic S urgery Referral [...] CERVICAL SPINE WO CONTRAST Mejia Griffin MD [address] [place] [address] Status Reason Specialty Diagnoses / Procedures Re ferred By Contact Referred To Contact Diagnoses Cervical stenosis (uterine cervix) Cervical radiculopathy Spondylosis Cord compression (HCC) STENOSIS, RADICULOPATHY, SPONDYLOSIS, CORD COMPRESSION Procedures OH SPINAL FUSION,ANT,EA ADNL LEVEL OH LUMB SP FUSN,POST INTERBDY,EA ADDNL OH ARTHRODESIS ANT INTERBODY INC DISCECTOMY, CERVICAL BELOW C2 OH C-LAMINOPLASTY W/GRAFT/PLATE, 2 OR MORE ANTERIOR INSTRUMENTATION 2-3 VERTEBRAL SEGMENTS OH ALLOGRAFT FOR SPINE SURGERY ONLY STRUCTURAL OH ARTHRODESIS ANT INTERBODY INC DISCECTOMY CERVICAL BELOW C2 EA ADDL A.C.D.F (ANTERIOR CERVICAL DISKECTOMY FUSION) C5-6 C6-7 WITH POSTERIOR DECOMPRESSION LAMINOPLASTY SPANNING FROM C3-4-5-6/ 2 HRS/ 1 C-ARM. NUVASIVE/ S.S.E.P, PAT AT [facility] Mejia Griffin MD [address] [address] [facility] Reason Comments Gynecologic Exam Reason Comments Follow-up Pt present today for a f/up visit for medication [employer]. INFORMATION SOURCE (unrecogn ized section and content) DATE CREATED AUTHOR 11/09/2020 [facility] DATE CREATED AUTHOR AUTHOR'S ORGANIZ ATION 11/22/2020 [facility] DATE CREATED AUTHOR AUTHOR'S ORGANIZ ATION 08/16/2021 [facility] DATE CREATED AUTHOR AUTHOR'S ORGANIZ ATION 09/24/2022 [facility] DATE CREATED AUTHOR AUTHOR'S ORGANIZ ATION 02/04/2024 [facility] Ordered Prescriptions (unrec ognized [...] 100 mL IVPB (COMPLETED) 2,000 mg, Intravenous, HUMAN RESOURCES ADMINISTRATOR TO O.R., 1 dose, On Tue11/18/20 at 0900, Pre-op (day of surgery) 1044 (Given - Provider: Joe Mantilla APRN - ELLE)1415 (Given - Provider: KATYA Dash CRNA) ceFAZolin [...] First dose on Tue11/18/20 at 2100, Post-op 212 (Given - Provider: Ekaterina Stone LPN) 0829 [...] Entry - Provider: Joe Mantilla APRN - CHANNEL EXECUTIVE)1447 (Stopped - Provider: Joe Mantilla APRN - CHANNEL EXECUTIVE)1544 (New Bag - Provider: Juliane Alonso, DEV) [...] Attending Provider Active Start: February 02, 2024 Cash Poster Relationship Specialty Start Date End Date Gina Javier MD [facility] [place] [address] PCP - General Family Medicine 05/30/24 Cash Poster Relationship Specialty Start Date End Date Gina Javier MD [address] [place] [phone] PCP - General Family Medicine 05/30/24 Goals (unrecognized section and content) Goals may [...] BE BASED ON THE PRIMARY CLINICAL RECORDS. [facility]. provides no warranty or guarantee of the accuracy or completeness of information in this document.
[2024-07-21 11:47] LABS: Basophils Absolute Auto 0.1 10^3/uL (0.0-0.1); Basophils Percent Auto 1.2 % (0.2-2.0); Hematocrit 42.2 % (36.0-48.0); Hemoglobin 13.9 g/dL (12.0-16.0); Lymphocytes Absolute Auto 1.5 10^3/uL (1.2-3.8); Lymphocytes Percent Auto 36.1 % (20.5-60.0); Mean Corpuscular HGB Conc 32.9 g/dL (29.9-35.2); Mean Corpuscular Hemoglobin 27.7 pg (26.7-34.0); Mean Corpuscular Volume 84.1 fL (81.0-99.0); Mean Platelet Volume 10.1 fL (9.5-13.5); Monocytes Absolute Auto 0.4 10^3/uL (0.3-0.8); Monocytes Percent Auto 8.7 % (1.7-12.0); Neutrophils Absolute Auto 2.2 10^3/uL (1.4-6.5); Platelet Count 241 10^3/uL (150-450); Red Blood Count 5.02 10^6/uL (4.20-5.40); Red Cell Distribution Width 12.6 % (11.0-15.0)
[2024-07-21 11:51] LABS: Estimated Average Glucose 126 mg/dL
[2024-07-21 12:49] LABS: Alanine Aminotransferase 23 U/L (14-59); Albumin Globulin Ratio 1.1; Albumin Level 3.5 g/dL (3.4-5.0); Alkaline Phosphatase 108 U/L (46-116); Anion Gap 8.9; Aspartate Amino Transferase 16 U/L (15-37); BUN Creatinine Ratio 22.1; Bilirubin Total 0.4 mg/dL (0.2-1.0); Carbon Dioxide 28.8 mmol/L (21.0-32.0); Chloride 107 mmol/L (98-107); Chol HDL Ratio 1.7; Cholesterol 150 mg/dL (<=200); Estimated GFR (African America >60 (>=60 mL/min/1.73m^2); Estimated GFR (Non-African Ame >60 (>=60 mL/min/1.73m^2); Free T3 4.89 pg/mL (2.18-3.98); Globulin 3.3 g/dL; Glucose 102 mg/dL (74-106); HDL Cholesterol 89 mg/dL (40-60); Potassium 4.7 mmol/L (3.5-5.1); Sodium 140 mmol/L (136-145); Thyroid Stimulating Hormone <0.007 uIU/mL (0.358-3.740); Total Protein 6.8 g/dL (6.4-8.2); Triglycerides 22 mg/dL (<=150); VLDL CHOLESTEROL 4.4 mg/dL
== END 2024-07-21 11:13 | disposition home or self-care (01) ==
LOC: LAB 11:14
PROVIDERS: PCP Family Medicine; Visit Provider Family Medicine
DX: Z00.00 Encounter for general adult medical examination without abnormal findings (principal)
CPT/HCPCS: 36415; 80053; 80061; 82306; 83036; 83540; 84436; 84443; 84481; 85025

== ENCOUNTER 2024-08-04 10:52 | Outpatient (OUT) | payer BC, SELFPAY ==
--- OUTSIDE RECORDS SUMMARY | 2024-08-04 10:56 | XMS_ITS | CCD ---
Author Organization [facility] Care Team Providers Care Pocket Assembler Name Role Phone Gina Javier MD Primary Care Provider [phone] GINA JAVIER Primary Care Unavailable GINA JAVIER Referring Unavailable ELIAS, MEJIA H. Admitting Unavailable ELIAS, MEJIA H. Attending Unavailable ELIAS, MEJIA H. Attending Unavailable ELIAS, MEJIA H. Referring Unavailable GINA JAVIER Primary Care Unavailable GINA JAVIER Primary Care Unavailable ELIAS, MEJIA H. Referring Unavailable Gina Javier Primary Care Physician Santiago Cano Unavailable Sawyer Greer Unavailable MD Gina Javier Primary Care Provider [phone] MD Sawyer Greer Attending Provider [phone] GINA AVALOS Consulting Unavailable HOY ., [...] II Attending Provider Edison Veronica II Admitting UnavailGina Fofana Primary [...] grepafloxacin (3 sources) grepafloxacin Drug Allergy 1 [facility] (12 sources) grepafloxacin; Translations: [grepafloxacin] Drug Allergy 1 Skin reaction (observable entity) [facility] [place] (2 sources) grepafloxacin Drug Allergy [facility] (8 sources) Adhesive Tape; Translations: [adhesive tape] Propensity to adverse reactions 3 Itching [facility] (1 source) grepafloxacin Drug Allergy 3 [facility] Medications Current Medications Medication Drug Class(es) [...] oral capsule (7 sources) Start: 01-20-2023 take 62937 ug by mouth once daily Biotin Active 25307 MCG PO Daily January 20, 2023 12:00am [...] by mouth once daily Multiple Vitamins-Minerals (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 [facility] Comment on above: TESTS RESULT FLAG UN ITS REF RANGE LAB Clinician Provided Cytology Information Source.............Vagina No. of containers..01 ThinPrep Vial Age Algo ACOG Darline... 30-65 01 FLAG LEGEND: L-Low Normal,H-High Normal,LL-Alert Low,HH-Alert High <-Panic Low,>-Panic High,A-Abnormal,AA-Critical Abnormal Performed at: 01 =G [address] [address] Michelle Rahman MD, HPV APTIMA Negative Negative [facility] Comment on above: This nucleic acid am plification test detects fourteen high- risk HPV types (16,18,31,33,35,39,45,51,52,56,58,59,66,68) without differentiation. Performed at: =G - [facility] [address] [place] [id number] Calendering Supervisor: Michelle Rahman MD, Phone: [phone] Performed at: [facility] [address] [place], [place] [id number] Calendering Supervisor: Chris Enriquez MD, Phone: [phone] IGP, APTIMA HPV, RFX 16/18,45 Note . [facility] Comment on above: TESTS RESULT FLAG UN ITS REF RANGE LAB DIAGNOSIS: 02 NEGATIVE FOR INTRAEPITHELIAL LESION OR MALIGNANCY. CELLULAR CHANGES ASSOCIATED WITH ATROPHY ARE PRESENT. THIS SPECIMEN WAS RESCREENED PART OF OUR ELECTRONIC HEALTH RECORDS SPECIALIST PROGRAM. Specimen adequacy: 02 Satisfactory for evaluation. Performed by: 02 Chanelle Padilla, Plant Mechanic (ASC) QC reviewed by: 02 Simon Wong, Plant Mechanic (ASCP) . 02 Note: Note 03 The [...] High,A-Abnormal,AA-Critical Abnormal Performed at: 02 [facility] [place] [facility] [address] [place] [address] Chris Enriquez MD, 03 WB [facility] [place] [address] [place] [address] Michelle Rahman MD, SPATULA-ALONE [facility] XR hip LT min 2V(w/wo pelvis )*on 02-02-2024 XR hip LT min 2V(w/wo pelvis)* [facility] [address] [place] [address] XRay Report Signed Patient: Ana Palmer MR#: [id number] : 1970 Acct:[id number] Age/Sex: 53 / F ADM Date: 02/02/24 Loc: [facility] Room: Type: [facility] Attending Dr: Edison Veronica II, MD Copies [...] Radha Godinez M.D.02/02/2024 9:56 AM Dictation Location: [place] [address] Transcribed By: [facility] 02/02/24 0956 Dictated By: Radha Godinez MD 02/02/24 0950 Signed By: 02/02/24 0956 Normal [facility] XR hip LT min 2V(w/wo pelvis )*on 04-20-2023 XR hip LT min 2V(w/wo pelvis)* [facility] [place] Other XR hip LT min 2V(w/wo pelvis)* [facility] [address] [place] Other XR hip LT min 2V(w/wo pelvis)* [address] [facility] [place] Other XR hip LT min 2V(w/wo pelvis)* [place] [address] [facility] Other XR hip LT min 2V(w/wo pelvis)* XRay Report [facility] Other XR hip LT min 2V(w/wo pelvis)* Signed [facility] Other XR hip LT min 2V(w/wo pelvis)* Patient: Ana Palmer MR#: [id number] [facility] Other XR hip LT min 2V(w/wo pelvis)* : 1970 Acct:[id number] [place] Other XR hip LT min 2V(w/wo pelvis)* Age/Sex: 52 / F ADM Date: 04/20/23 [facility] Other XR hip LT min 2V(w/wo pelvis)* Loc: [facility] Room: Type: [facility] [place] Other XR hip LT min 2V(w/wo pelvis)* Attending Dr: Edison Veronica II, MD [place] Other XR hip LT min 2V(w/wo pelvis)* Copies to: Edison Veronica MD [facility] Other XR hip LT min 2V(w/wo pelvis)* Ordering Provider: Edison Veronica MD [facility] Other XR hip LT min 2V(w/wo pelvis)* Date of Service: 04/20/23 [facility] Other XR hip LT min 2V(w/wo pelvis)* XR/XR hip LT min 2V(w/wo pelvis)*: S/P total left hip arthroplasty [facility] Other XR hip LT min 2V(w/wo pelvis)* AP PELVIS AND LEFT HIP - 2 views: [facility] Other XR hip LT min 2V(w/wo pelvis)* CLINICAL HISTORY: Follow-up left hip replacement [facility] Other XR hip LT min 2V(w/wo pelvis)* COMPARISON: 03/17/2023 [place] Other XR hip LT min 2V(w/wo pelvis)* AP view of the pelvis and crosstable lateral view of the left hip were obtained. A left hip [facility] Other XR hip LT min 2V(w/wo pelvis)* prosthesis is again visualized. The hardware appears intact and unchanged from the prior. There is [facility] Other XR hip LT min 2V(w/wo pelvis)* no developing fracture or dislocation. There is minor sclerosis at the SI joints. There are no [facility] Other XR hip LT min 2V(w/wo pelvis)* significant soft tissue abnormalities. [facility] Other XR hip LT min 2V(w/wo pelvis)* XR/XR hip LT min 2V(w/wo pelvis)* [facility] Other XR hip LT min 2V(w/wo pelvis)* IMPRESSION: [facility] Other XR hip LT min 2V(w/wo pelvis)* STABLE LEFT HIP REPLACEMENT [facility] Other XR hip LT min 2V(w/wo pelvis)* Impression dictated by: Radha Godinez M.D.04/20/2023 11:47 AM [place] Other XR hip LT min 2V(w/wo pelvis)* Dictation Location: [facility] [place] Other XR hip LT min 2V(w/wo pelvis)* Transcribed By: SAAD 04/20/23 1147 [place] Other XR hip LT min 2V(w/wo pelvis)* Dictated By: Radha Godinez MD 04/20/23 1148 [place] Other XR hip LT min 2V(w/wo pelvis)* Signed By: [facility] Other XR hip LT min 2V(w/wo pelvis)* 04/20/23 1148 [place] Other XR hip LT min 2V(w/wo pelvis)* [facility] [place] [address] XRay Report Signed Patient: Ana Palmer MR#: [id number] : 1970 Acct:[id number] Age/Sex: 52 / F ADM Date: 04/20/23 Loc: [facility] Room: Type: [facility] Attending Dr: Edison Veronica II, MD Copies [...] 1146 Signed By: 04/20/23 1147 Normal [facility] XR hip LT min 2V(w/wo pelvis )*on 03-17-2023 XR hip LT min 2V(w/wo pelvis)* [facility] [place] [address] XRay Report Signed Patient: Ana Palmer MR#: [id number] : 1970 Acct:[id number] Age/Sex: 52 / F ADM Date: 03/17/23 Loc: [facility] Room: Type: [facility] Attending Dr: Edison Veronica II, MD Copies to: Edison Veronica MD Ordering Provider: Edison eVronica MD Date of Service: 03/17/23 XR/XR hip [...] 1304 Signed By: 03/17/23 1305 Normal [facility] Glucose Glucometer (BldC) [M ass/Vol]Ordered By: Edison Veronica on 01-31-2023 Glucose [Mass/Vol] 179 mg/dL [facility] Comment on above: Random Glucose Refer ence Range is dependent on time and content of last meal. Glucose of more than 200 mg/dL in a nonstressed, ambulatory subject supports the diagnosis of Diabetes Mellitus. Automated erythrocytes count in urine sediment (number/area)Ordered By: Edison Veronica on 01-20-2023 RBC Auto (Urine sed) [#/Area] None seen [HPF] 0-4 [facility] Automated leukocytes count i n urine sediment (number/area)Ordered By: Edison Veronica on 01-20-2023 WBC Auto (Urine sed) [#/Area] 3-4 [HPF] 0-4 [facility] Basophils Auto (Bld) [#/Vol] Ordered By: Edison Veronica on 01-20-2023 Basophils (Bld) [#/Vol] 0.0 10*3/uL 0.0-0.2 [facility] Basophils/100 WBC Auto (Bld) Ordered By: Edison Veronica on 01-20-2023 Basophils/100 WBC (Bld) 1.0 % . [facility] Bilirubin Test strip Ql (U)O rdered By: Edison Veronica on 01-20-2023 Bilirubin Ql (U) Negative Negative [facility] Calcium [Mass/volume] in Ser um or PlasmaOrdered By: Edison Veronica on 01-20-2023 Calcium [Mass/Vol] 9.2 mg/dL 8.6-10.3 [facility] Carbon dioxide, total [Moles /volume] in Serum or PlasmaOrdered By: Edison Veronica on 01-20-2023 CO2 [Moles/Vol] 29.0 mmol/L 21.0-31.0 [facility] Chloride [Moles/volume] in S sima or PlasmaOrdered By: Edison Veronica on 01-20-2023 Chloride [Moles/Vol] 103 mmol/L 98-107 [facility] Color Auto (U)Ordered By: Lilian Veronica on 01-20-2023 Color (U) Yellow Yellow [facility] Creatinine [Mass/volume] in Serum or PlasmaOrdered By: Edison Veronica on 01-20-2023 Creatinine [Mass/Vol] 0.67 mg/dL 0.60-1.20 [facility] Eosinophils Auto (Bld) [#/Vo l]Ordered By: Edison Veronica on 01-20-2023 Eosinophils (Bld) [#/Vol] 0.0 10*3/uL 0.0-0.45 [facility] Eosinophils/100 WBC Auto (Bl d)Ordered By: Edison Veronica on 01-20-2023 Eosinophils/100 WBC (Bld) 0.0 % . [facility] Erythrocyte distribution wid th Auto (RBC) [Ratio]Ordered By: Edison Veronica on 01-20-2023 Erythrocyte distribution width (RBC) [Ratio] 14.0 % 11.9-15.3 [facility] Fructosamine [Moles/volume] in Serum or PlasmaOrdered By: Edison Veronica on 01-20-2023 Fructosamine [Moles/Vol] 196 umol/L 0-285 [facility] Comment on above: Published reference interval for apparently healthysubjects between age 20 and 60 is 205 - 285 umol/L and in apoorly controlled diabetic population is 228 - 563 umol/Lwith a mean of 396 umol/L.Performed at: [facility] Director: Lane Rivera PhD, Phone: [phone] Glucose [Mass/volume] in Ser um or PlasmaOrdered By: Edison Veronica on 01-20-2023 Glucose [Mass/Vol] 149 mg/dL 70-100 [facility] Comment on above: ADA recommended refe rence rangeRandom Glucose Reference Range is dependent on time and content of last meal. Glucose of more than 200 mg/dL in a nonstressed, ambulatory subject supports the diagnosis of Diabetes Mellitus. Hematocrit Auto (Bld) [Volum e fraction]Ordered By: Edison Veronica on 01-20-2023 Hematocrit (Bld) [Volume fraction] 36.6 % 34.0-46.4 [facility] Hemoglobin [Mass/volume] in BloodOrdered By: Edison Veronica on 01-20-2023 Hemoglobin (Bld) [Mass/Vol] 12.3 g/dL 11.8-15.4 [facility] Ketones Auto test strip (U) [Mass/Vol]Ordered By: Edison Veronica on 01-20-2023 Ketones (U) [Mass/Vol] Negative Negative [facility] Laboratory - UrinalysisOrder ed By: Edison Veronica on 01-20-2023 Hyaline casts LM Ql (Urine sed) None seen [LPF] 0-8 [facility] Leukocytes [#/volume] correc carola for nucleated erythrocytes in Blood by Automated counOrdered By: Edison Veronica on 01-20-2023 WBC corrected for nucl RBC Auto (Bld) [#/Vol] 3.5 10*3/uL 3.8-11.6 [facility] Lymphocytes Auto (Bld) [#/Vo l]Ordered By: Edison Veronica on 01-20-2023 Lymphocytes (Bld) [#/Vol] 1.3 10*3/uL 1.00-4.8 [facility] Lymphocytes/100 WBC Auto (Bl d)Ordered By: Edison Veronica on 01-20-2023 Lymphocytes/100 WBC (Bld) 36.7 % . [facility] MCH Auto (RBC) [Entitic mass ]Ordered By: Edison Veronica on 01-20-2023 MCH (RBC) [Entitic mass] 27.3 pg 24.7-34.3 [facility] MCHC Auto (RBC) [Mass/Vol]Or dered By: Edison Veronica on 01-20-2023 MCHC (RBC) [Mass/Vol] 33.5 g/dL 32.0-35.0 [facility] MCV Auto (RBC) [Entitic vol] Ordered By: Edison Veronica on 01-20-2023 MCV (RBC) [Entitic vol] 81.4 fL 80-100 [facility] Monocytes Auto (Bld) [#/Vol] Ordered By: Edison Veronica on 01-20-2023 Monocytes (Bld) [#/Vol] 0.3 10*3/uL 0.0-0.8 [facility] Monocytes/100 WBC Auto (Bld) Ordered By: Edison Veronica on 01-20-2023 Monocytes/100 WBC (Bld) 7.2 % . [facility] Neutrophils Auto (Bld) [#/Vo l]Ordered By: Edison Veronica on 01-20-2023 Neutrophils (Bld) [#/Vol] 2.0 10*3/uL 1.8-7.7 [facility] Neutrophils/100 WBC Auto (Bl d)Ordered By: Edison Veronica on 01-20-2023 Neutrophils/100 WBC (Bld) 55.1 % . [facility] Nitrite Test strip Ql (U)Ord ered By: Edison Veronica on 01-20-2023 Nitrite Ql (U) Negative Negative [facility] No Panel InformationOrdered By: Edison Veronica on 01-20-2023 Estimated GFR (CKD-EPI) > 60.0 mL/Min [facility] Creatinine Clearance (Chem N/A [facility] Nucleated erythrocytes [Pres ence] in Blood by Automated countOrdered By: Edison Veronica on 01-20-2023 Nucleated RBC Auto Ql (Bld) 0.1 /100{WBC} 0-0.5 [facility] Platelet mean volume Auto (B ld) [Entitic vol]Ordered By: Edison Veronica on 01-20-2023 Platelet mean volume (Bld) [Entitic vol] 8.2 fL 6.3-10.7 [facility] Platelets Auto (Bld) [#/Vol] Ordered By: Edison Veronica on 01-20-2023 Platelets (Bld) [#/Vol] 248 10*3/uL 150-450 [facility] Potassium [Moles/volume] in Serum or PlasmaOrdered By: Edison Veronica on 01-20-2023 Potassium [Moles/Vol] 4.3 mmol/L 3.5-5.1 [facility] Protein Auto test strip (U) [Mass/Vol]Ordered By: Edison Veronica on 01-20-2023 Protein (U) [Mass/Vol] Negative Negative [facility] RBC Auto (Bld) [#/Vol]Ordere d By: Edison Veronica on 01-20-2023 RBC (Bld) [#/Vol] 4.50 10*6/uL 3.60-5.00 [facility] Serum or plasma anion gap de terminationOrdered By: Edison Veronica on 01-20-2023 Anion gap [Moles/Vol] 11.3 mmol/L 6.0-15.0 [facility] Sodium [Moles/volume] in Ser um or PlasmaOrdered By: Edison Veronica on 01-20-2023 Sodium [Moles/Vol] 139 mmol/L 136-145 [facility] Specific gravity Auto test s trip (U) [Rel density]Ordered By: Edison Veronica on 01-20-2023 Specific gravity (U) [Rel density] 1.008 1.001-1.03 0 [facility] Squamous epithelial cells de tection in urine sediment by light microscopyOrdered By: Edison Veronica on 01-20-2023 Epithelial cells.squamous LM Ql (Urine sed) None seen [HPF] 0-2 [facility] Urea nitrogen [Mass/volume] in Serum or PlasmaOrdered By: Edison Veronica on 01-20-2023 Urea nitrogen [Mass/Vol] 16 mg/dL 7-25 [facility] Urine bacteria detection by automated methodOrdered By: Edison Veronica on 01-20-2023 Bacteria Auto Ql (U) None seen None Seen [facility] Urine clarity by refractomet ry automatedOrdered By: Edison Veronica on 01-20-2023 Clarity Refractometry automated (U) Clear Clear [facility] Urine glucose measurement by automated test strip (mass/volume)Ordered By: Edison Veronica on 01-20-2023 Glucose Auto test strip (U) [Mass/Vol] Normal mg/dL Normal [facility] Urine hemoglobin detection b y automated test stripOrdered By: Edison Veronica on 01-20-2023 Hemoglobin Auto test strip Ql (U) Negative Negative [facility] Urine leukocyte esterase det ection by automated test stripOrdered By: Edison Veroinca on 01-20-2023 Leukocyte esterase Auto test strip Ql (U) 2+ Negative [facility] Urobilinogen Auto test strip (U) [Mass/Vol]Ordered By: Edison Veronica on 01-20-2023 Urobilinogen (U) [Mass/Vol] Normal mg/dL Normal [facility] WBC Auto (Bld) [#/Vol]Ordere d By: Edison Veronica on 01-20-2023 WBC (Bld) [#/Vol] 3.5 10*3/uL 3.8-11.6 [facility] pH Auto test strip (U)Ordere d By: Edison Veronica on 01-20-2023 pH (U) 6.0 [pH] 5.0-9.0 [facility] Albumin [Mass/volume] in Ser um or Plasma by Bromocresol green (BCG) dye binding methoOrdered By: Edison Veronica on 12-24-2022 Albumin BCG dye [Mass/Vol] 4.5 g/dL 3.5-5.7 [facility] Cotinine [Mass/volume] in Se rum or PlasmaOrdered By: Edison Veronica on 12-24-2022 Cotinine [Mass/Vol] <1.0 ng/mL . [facility] Comment on above: This test was develo ped and its performance characteristicsdetermined by [employer]. It has not been cleared orapproved by the Food and Drug Administration.Cotinine levels greater than 20.0 are consistent with theuse of tobacco or tobacco cessation products.Performed at: [facility] [id number] Director: Antonio Dumont MD, Phone: [phone] Glucose mean value [Mass/vol ume] in Blood Estimated from glycated hemoglobinOrdered By: Edison Veronica on 12-24-2022 Average glucose Estimated from glycated hemoglobin (Bld) [Mass/Vol] 111 mg/dL [facility] Hemoglobin A1c percentageOrd ered By: Edison Veronica on 12-24-2022 HbA1c (Bld) [Mass fraction] 5.5 % 4.3-5.6 [facility] Comment on above: Increased risk for d iabetes: 5.7 - 6.4diabetes: >6.4glycemic control for adults with diabetes: <7.0 Hemoglobin [Mass/volume] in BloodOrdered By: Edison Veronica on 12-24-2022 Hemoglobin (Bld) [Mass/Vol] 13.0 g/dL 11.8-15.4 [facility] Nicotine [Mass/volume] in Se rum or PlasmaOrdered By: Edison Veronica on 12-24-2022 Nicotine [Mass/Vol] <1.0 ng/mL . [facility] Comment on above: This test was develo ped and its performance characteristicsdetermined by [facility]. It has not been cleared orapproved by the Food and Drug Administration.Nicotine levels greater than 2.0 are consistent with theuse of tobacco or tobacco cessation products. Vitamin D+Metabolites [Mass/ volume] in Serum or PlasmaOrdered By: Edison Veronica on 12-24-2022 Vitamin D+Metabolites [Mass/Vol] 50.9 ng/mL 30-100 [facility] Comment on above: VITAMIN D STATUS 25( [...] (Unsp spec) No MRSA Isolated 2 Days [facility] MRSA isol Org specific cx Ql (Unsp spec) No MRSA Isolated 2 Days [facility] MG MAMM SCREEN 3D ADALBERTO CADon 09-09-2022 MG MAMM SCREEN 3D ADALBERTO CAD Patient: ANA PALMER Exam Date: 09/09/2022 : 1970 Gender:F Ordering : DR GINA JAVIER . Admission #: [id number] Family : Order #: [id number] CLICK HERE TO VIEW EXAM RADIOLOGY REPORT [...] aml cancer at age 24. LOCATION: [facility] BREAST COMPOSITION: Heterogeneously dense,which may obscure [...] MD on 09/09/2022 at 12:06 Normal [facility] CBC AUTO DIFFon 07-08-2022 BASO # 0.0 103/ul Normal 0.0-0.1 [facility] Comment on above: Performed By: #### C BC #### [facility] [address] [address] [address] Juliana Brooks Basophils/100 WBC (Bld) 0.9 % Normal 0.2-2.0 [facility] Comment on above: Performed By: #### C BC #### [facility] [address] [place] [address] Dr. Juliana Brooks EO # 0.0 103/ul Normal 0.0-0.7 [facility] Comment on above: Performed By: #### C BC #### [facility] [address] [address] [address] Juliana Brooks Eosinophils/100 WBC (Bld) 0.4 % Critically low 0.9-7.0 [facility] Comment on above: Performed By: #### C BC #### [facility] [address] [address] [address] Juliana Brooks Erythrocyte distribution width (RBC) [Ratio] 16.3 % Critically high 11.0-15.0 [facility] Comment on above: Performed By: #### C BC #### [facility] [address] [place] [address] Dr. Juliana Brooks Hematocrit (Bld) [Volume fraction] 37.3 % Normal 36.0-48.0 [facility] Comment on above: Performed By: #### C BC #### [facility] [address] [place] [address] Dr. Juliana Brooks Hemoglobin (Bld) [Mass/Vol] 11.1 g/dL Critically low 12.0-16.0 [facility] Comment on above: Performed By: #### C BC #### [facility] [address] [place] [address] Dr. Juliana Brooks IG # 0.01 10e3/ul Normal 0.00-0.03 [facility] Comment on above: Performed By: #### C BC #### [facility] [address] [place] [address] Dr. Juliana Brooks IG % 0.2 % Normal 0.0-0.5 [facility] Comment on above: Performed By: #### C BC #### [facility] [address] [place] [address] Dr. Juliana Brooks LYMPH # 1.6 103/ul Normal 1.2-3.8 [facility] Comment on above: Performed By: #### C BC #### [facility] [address] [place] [address] Dr. Juliana Brooks Lymphocytes/100 WBC (Bld) 33.0 % Normal 20.5-60.0 [facility] Comment on above: Performed By: #### C BC #### [facility] [address] [place] [address] Dr. Juliana Brooks MANUAL DIFF REQ NO Normal [facility] Comment on above: Performed By: #### C BC #### [facility] [address] [place] [address] Dr. Juliana Brooks MCH (RBC) [Entitic mass] 23.2 pg Critically low 26.7-34.0 [facility] Comment on above: Performed By: #### C BC #### [facility] [address] [place] [address] Dr. Juliana Brooks MCHC (RBC) [Mass/Vol] 29.8 g/dL Critically low 29.9-35.2 [facility] Comment on above: Performed By: #### C BC #### [facility] [address] [place] [address] Dr. Juliana Brooks MCV (RBC) [Entitic vol] 78.0 fL Critically low 81.0-99.0 [facility] Comment on above: Performed By: #### C BC #### [facility] [address] [address] [address] Juliana Brooks MONO # 0.5 103/ul Normal 0.3-0.8 [facility] Comment on above: Performed By: #### C BC #### [facility] [address] [address] [address] Juliana Brooks Monocytes/100 WBC (Bld) 10.0 % Normal 1.7-12.0 [facility] Comment on above: Performed By: #### C BC #### [facility] [address] [address] [address] Juliana Brooks NEUT # 2.6 103/ul Normal 1.4-6.5 [facility] Comment on above: Performed By: #### C BC #### [facility] [address] [place] [address] Dr. Juliana Brooks Neutrophils/100 WBC (Bld) 55.5 % Normal 43.0-75.0 [facility] Comment on above: Performed By: #### C BC #### [facility] [address] [place] [address] Dr. Juliana Brooks Platelet mean volume (Bld) [Entitic vol] 10.2 fL Normal 9.5-13.5 [facility] Comment on above: Performed By: #### C BC #### [facility] [address] [place] [address] Dr. Juliana Brooks PLT 320 103/ul Normal 150-450 [facility] Comment on above: Performed By: #### C BC #### [facility] [address] [place] [address] Dr. Juliana Brooks RBC 4.78 106/ul Normal 4.20-5.40 [facility] Comment on above: Performed By: #### C BC #### [facility] [address] [place] [address] Dr. Juliana Brooks WBC 4.7 103/ul Normal 4.0-11.0 [facility] Comment on above: Performed By: #### C BC #### [facility] [address] [address] [address] Juliana Brooks FREE THYROXINE INDEX T7on FTI 3.24 Normal 1.30-4.50 [facility] Comment on above: Performed By: #### T 7, TSH, CMP, LIPID #### [facility] [address] [address] [address] Juliana Brooks T3U 36.0 % Normal 30.0-39.0 [facility] Comment on above: Performed By: #### T 7, TSH, CMP, LIPID #### [facility] [address] [address] [address] Juliana Brooks T4 [Mass/Vol] 9.00 ug/dL Normal 4.80-13.90 [facility] Comment on above: Performed By: #### T 7, TSH, CMP, LIPID #### [facility] [address] [place] [address] Dr. Juliana Brooks GLYCOHEMOGLOBIN A1Con 2022 ADA RECOMMENDATION SEE BELOW Normal [facility] Comment on above: Result Comment: ADA RECOMMENDED LIMIT 4.0 - 6.0 ADA THERAPEUTIC TARGET < 7.0 ACTION SUGGESTED > 7.0 Performed By: #### A 1C #### [facility] [address] [place] [address] Dr. Juliana Brooks Glucose [Mass/Vol] 137 mg/dL Normal [facility] Comment on above: Performed By: #### A 1C #### [facility] [address] [place] [address] Dr. Juliana Brooks HbA1c (Bld) [Mass fraction] 6.4 % Critically high 4.5-6.2 [facility] Comment on above: Performed By: #### A 1C #### [facility] [address] [place] [address] Dr. Juliana Brooks IRONon 07-08-2022 Iron [Mass/Vol] 54.0 ug/dL Normal 50.0-170.0 [facility] Comment on above: Performed By: #### I SARAH #### [facility] [address] [place] [address] Dr. Juliana Brooks LIPID PROFILEon 07-08-2022 CHOL-HDL RATIO NORM SEE BELOW Normal [facility] Comment on above: Result Comment: 3.3 - 4.4 LOW RISK 4.4 - 7.1 AVERAGE RISK 7.1 - 11.0 MODERATE RISK >11.0 HIGH RISK Performed By: #### T 7, TSH, CMP, LIPID #### [facility] [address] [address] [address] Juliana Brooks Cholesterol [Mass/Vol] 159 mg/dL Normal <=200 [facility] Comment on above: Performed By: #### T 7, TSH, CMP, LIPID #### [facility] [address] [address] [address] Juliana Brooks Cholesterol in HDL [Mass/Vol] 74 mg/dL Critically high 40-60 [facility] Comment on above: Performed By: #### T 7, TSH, CMP, LIPID #### [facility] [address] [address] [address] Juliana Brooks Cholesterol in LDL [Mass/Vol] 74.4 mg/dL Normal [facility] Comment on above: Performed By: #### T 7, TSH, CMP, LIPID #### [facility] [address] [address] [address] Juliana Brooks Cholesterol.total/Cho lesterol in HDL [Mass ratio] 2.1 {ratio} Normal [facility] Comment on above: Performed By: #### T 7, TSH, CMP, LIPID #### [facility] [address] [address] [address] Juliana Brooks HDL NORMAL > or = 60 mg/dl - LO W CARDIOVASCULAR RISK <40 mg/dl - HIGH CARDIOVASCULAR RISK Normal [facility] Comment on above: Performed By: #### T 7, TSH, CMP, LIPID #### [facility] [address] [address] [address] Juliana Brooks LDL CALC NORMAL SEE BELOW Normal [facility] Comment on above: Result Comment: <100 mg/dl OPTIMAL 100 - 129 mg/dl NEAR OR ABOVE OPTIMAL 130 - 159 mg/dl BORDERLINE HIGH 160 - 189 mg/dl HIGH >190 mg/dl VERY HIGH Performed By: #### T 7, TSH, CMP, LIPID #### [facility] [address] [address] [address] Juliana Brooks Triglyceride [Mass/Vol] 53 mg/dL Normal <=150 [facility] Comment on above: Performed By: #### T 7, TSH, CMP, LIPID #### [facility] [address] [address] [address] Juliana Brooks VLDL CALC 10.6 mg/dL Normal [facility] Comment on above: Performed By: #### T 7, TSH, CMP, LIPID #### [facility] [address] [place] [address] Dr. Juliana Brooks PROF 14(COMP METB)on 023 Albumin [Mass/Vol] 3.6 g/dL Normal 3.4-5.0 [facility] Comment on above: Performed By: #### T 7, TSH, CMP, LIPID #### [facility] [address] [place] [address] Dr. Juliana Brooks Albumin/Globulin [Mass ratio] 1.1 {ratio} Normal [facility] Comment on above: Performed By: #### T 7, TSH, CMP, LIPID #### [facility] [address] [place] [address] Dr. Juliana Brooks ALP [Catalytic activity/Vol] 107 U/L Normal 46-116 [facility] Comment on above: Performed By: #### T 7, TSH, CMP, LIPID #### [facility] [address] [place] [address] Dr. Juliana Brooks ALT [Catalytic activity/Vol] 26 U/L Normal 14-59 [facility] Comment on above: Performed By: #### T 7, TSH, CMP, LIPID #### [facility] [address] [place] [address] Dr. Juliana Brooks Anion gap [Moles/Vol] 11.1 mmol/L Normal [facility] Comment on above: Performed By: #### T 7, TSH, CMP, LIPID #### [facility] [address] [place] [address] Dr. Juliana Brooks AST [Catalytic activity/Vol] 19 U/L Normal 15-37 [facility] Comment on above: Performed By: #### T 7, TSH, CMP, LIPID #### [facility] [address] [address] [address] Juliana Brooks Bilirubin [Mass/Vol] 0.3 mg/dL Normal 0.2-1.0 [facility] Comment on above: Performed By: #### T 7, TSH, CMP, LIPID #### [facility] [address] [address] [address] Juliana Brooks Calcium [Mass/Vol] 9.2 mg/dL Normal 8.5-10.1 [facility] Comment on above: Performed By: #### T 7, TSH, CMP, LIPID #### [facility] [address] [place] [address] Dr. Juliana Brooks Chloride [Moles/Vol] 106 mmol/L Normal 98-107 [facility] Comment on above: Performed By: #### T 7, TSH, CMP, LIPID #### [facility] [address] [place] [address] Dr. Juliana Brooks CO2 [Moles/Vol] 28.3 mmol/L Normal 21.0-32.0 [facility] Comment on above: Performed By: #### T 7, TSH, CMP, LIPID #### [facility] [address] [place] [address] Dr. Juliana Brooks Creatinine [Mass/Vol] 0.60 mg/dL Normal 0.55-1.02 [facility] Comment on above: Performed By: #### T 7, TSH, CMP, LIPID #### [facility] [address] [place] [address] Dr. Juliana Brooks EGFR-AF BENINESE >60 Normal >=60 [facility] Comment on above: Performed By: #### T 7, TSH, CMP, LIPID #### [facility] [address] [place] [address] Dr. Juliana Brooks EGFR-NON AF BENINESE >60 Normal >=60 [facility] Comment on above: Performed By: #### T 7, TSH, CMP, LIPID #### [facility] [address] [address] [address] Juliana Brooks Globulin (S) [Mass/Vol] 3.4 g/dL Normal [facility] Comment on above: Performed By: #### T 7, TSH, CMP, LIPID #### [facility] [address] [address] [address] Juliana Brooks Glucose [Mass/Vol] 104 mg/dL Normal 74-106 [facility] Comment on above: Performed By: #### T 7, TSH, CMP, LIPID #### [facility] [address] [address] [address] Juliana Brooks Potassium [Moles/Vol] 4.4 mmol/L Normal 3.5-5.1 [facility] Comment on above: Performed By: #### T 7, TSH, CMP, LIPID #### [facility] [address] [place] [address] Dr. Juliana Brooks Protein [Mass/Vol] 7.0 g/dL Normal 6.4-8.2 [facility] Comment on above: Performed By: #### T 7, TSH, CMP, LIPID #### [facility] [address] [address] [address] Juliana Brooks Sodium [Moles/Vol] 141 mmol/L Normal 136-145 [facility] Comment on above: Performed By: #### T 7, TSH, CMP, LIPID #### [facility] [address] [address] [address] Juliana Brooks Urea nitrogen [Mass/Vol] 11.0 mg/dL Normal 7.0-18.0 [facility] Comment on above: Performed By: #### T 7, TSH, CMP, LIPID #### [facility] [address] [place] [address] Dr. Juliana Brooks Urea nitrogen/Creatinine [Mass ratio] 18.3 mg/mg Normal [facility] Comment on above: Performed By: #### T 7, TSH, CMP, LIPID #### [facility] [address] [address] [address] Juliana Brooks TSHon 07-08-2022 TSH Qn m[IU]/L Critically low 0.358-3.74 0 [facility] Comment on above: Performed By: #### T 7, TSH, CMP, LIPID #### [facility] [address] [address] [address] Juliana Brooks MRI LSPINE WO CONon [...] by: IRENE AGUILERA Date: 2021-12-24 16:08 Normal [facility] XR LSPINE MIN 4 VIEWSon [...] by: ALE GERBER Date: 2021-11-26 18:41 Normal [facility] Ambulatory Visit Summaryon 0 07-24-2021 [...] Reducible right inguinal hernia Sleep apnea Normal [facility] General Surgery Office/Clini c Noteon 07-24-2021 [...] inactivated - Not Given Patient Refuses Normal [facility] Comment on above: Result Comment: Elec [...] [place] Where: General Surgery Nill/Said Fatemeh Rosado [facility] General Surgery Office/Clini c Noteon 07-10-2021 [...] - Not Given Patient Refuses Normal [facility] Comment on above: Result Comment: Elec tronically Signed By: KHANG BARTH, Jerry [place]\.br\Date and Time Signed: 07/10/21 14:23 EDT Operative Reporton Operative Report [id number]:127 [facility] Lab Reportson 06-29-2021 Lab Reports [id number]#1.00CD:127 [facility] ECG 12-Leadon 06-24-2021 ECG 12-Lead [id number]#1.00CD:127 [facility] Pre-Certification Formon Pre-Certification Form [id number]#1.00CD:127 [facility] RAD - CT Reporton 06-14-2021 RAD - CT Report [id number]#1.00CD:127 [facility] Consent for Procedure/Surger yon 06-11-2021 Consent for Procedure/Surgery [id number]#1.00CD:127 [facility] Ambulatory Visit Summaryon 0 06-10-2021 Ambulatory Visit Summary AAN PALMER :1970 Visit Date:06/10/2021 Ambulatory Visit Instructions [...] Radiculopathy of cervical spine Sleep apnea Normal [facility] Physician Referralon 022 Physician Referral [id number]#[id number]:127 Normal [facility] FLUORO FOR SURGICAL PROCEDUR ESOrdered By: Mejia Griffin on 11-18-2020 Jamie, Efraín Incoming R adiant Results From [facility] - 11/18/2020 2:23 PM EDT EXAMINATION: FLUORO FOR SURGICAL PROCEDURES CLINICAL HISTORY: R52 Pain ICD10 COMPARISONS: None available. FINDINGS: Fluoroscopic assistance was provided during ACDF, C5-6 and C6-7 The total radiation time is 31.9 seconds, radiation dose is 3.62mGy. IMPRESSION: Intraprocedural fluoroscopic support has been provided. Please refer to the procedure report. [employer] Work Phone: [employer] Work Phone: Surgical Specimenon 11-19-19 21 Surgical Specimen [facility] [address] [place], [place] [id number] FINAL SURGICAL PATHOLOGY REPORT Patient Name: ANA PALMER Accession No: [id number] Age Sex: 1970 Location: [facility] [id number] Account No: [id number] Collected: 11/18/2020 [facility] Rec No: [id number] Received: 11/18/2020 Attend Phys: MEJIA GRIFFIN Completed: [...] in three cassettes following decalcification. RAFY/JOELLE CPT: 50405 X1 02374 X1 JERAMIE ERVIN M.D. 11/20/2020 Electronically signed out by Page 1 of 1 Invalid Interpretation Code [facility] Comment on above: Performed By: #### S UR #### [facility] [address] [place] [id number] COVID-19, PCRon 11-08-2020 SARS-CoV-2 (COVID-19) RNA AISHA+probe Ql (Unsp spec) Not detected Normal Not Detect [facility] Comment on above: Result Comment: Test ing was performed using uControl SARS-CoV-2 Assay. Negative results do not preclude [...] oropharyngeal and mid-turbinate specimens. Patient Fact Sheet: https://www.fda.gov/media/471333/download Provider Fact Sheet: https://www.fda.gov/media/017608/download FDA Specimen Types Link: https://www.fda.gov/medical-devices/ vnigvgyyrhd-vadrr-60-wdg-mpljgkl-wkagnna/vsiq-sgsalbh-igji-cov-2 Methodology: RT-PCR Performed By: #### C OVB #### [facility] [address] [place] [address] CBC With Platelet No Differe ntialon 11-07-2020 Erythrocyte distribution width (RBC) [Ratio] 15.8 % Critically high 11.5-14.5 [facility] Comment on above: Performed By: #### C BCND #### [facility] [address] [place] [address] Hematocrit (Bld) [Volume fraction] 37.5 % Normal 37.0-47.0 [facility] Comment on above: Performed By: #### C BCND #### [facility] [address] [place] [address] Hemoglobin (Bld) [Mass/Vol] 12.1 g/dL Normal 12.0-16.0 [facility] Comment on above: Performed By: #### C BCND #### [facility] [address] [place] [address] MCH (RBC) [Entitic mass] 26.2 pg Low 27.0-31.3 [facility] Comment on above: Performed By: #### C BCND #### [facility] [address] [place] [address] MCHC 32.3 % Low 33.0-37.0 [facility] Comment on above: Performed By: #### C BCND #### [facility] [address] [place] [address] MCV (RBC) [Entitic vol] 81.3 fL Low 82.0-100.0 [facility] Comment on above: Performed By: #### C BCND #### [facility] [address] [place] [address] Platelets (Bld) [#/Vol] 301 10*3/uL Normal 130-400 [facility] Comment on above: Performed By: #### C BCND #### [facility] [address] [place] [address] RBC (Bld) [#/Vol] 4.61 10*6/uL Normal 4.20-5.40 [facility] Comment on above: Performed By: #### C BCND #### [facility] [address] [place] [address] WBC (Bld) [#/Vol] 3.7 10*3/uL Low 4.8-10.8 [facility] Comment on above: Performed By: #### C BCND #### [facility] [address] [place] [address] Partial Thromboplastin Timeo n 11-07-2020 aPTT Coag (Bld) [Time] 28.0 s Normal 24.4-36.8 [facility] Comment on above: Result Comment: Effe ctive 02/20/2020: Heparin Therapeutic Range: 64.0 ? 98.0 seconds. Performed By: #### P TT #### [facility] [address] [place] [address] Prothrombin Timeon INR Coag (PPP) [Relative time] 1.0 {INR} Normal [facility] Comment on above: Performed By: #### P T #### [facility] [address] [place] [address] PT Coag (PPP) [Time] 13.3 s Normal 12.3-14.9 [facility] Comment on above: Performed By: #### P T #### [facility] [address] [place] [address] Type and Screen Capture 3 sc rn cellon 11-07-2020 Type and Screen Capture 3 scrn cell PATIENT: ESTELA PEREZ LOC: [facility] BILL# : [id number] : 1970 SEX: F ORDERED BY: TIM CASTILLO ORDERED : 11/07/2020 13:32 COLLECTED: 11/07/2020 13:32 ORDER : [id number] RECEIVED : 11/07/2020 19:33 TEST NAME RESULT UNITS RANGES ABN FL ST ABORH Capture O POS F Antibody 3 Cell Scrn Captu NEG F Normal [facility] Comment on above: Performed By: #### T S3C #### [facility] [address] [place] [address] MRI CERVICAL SPINE WO CONTRA STOrdered By: [...] gland, may consider dedicated thyroid ultrasound imaging. [facility] Phone: EXAMINATION: MRI CER VICAL SPINE [...] hypertrophy with mild left neural foraminal narrowing. [employer] Work Phone: Jamie, Chpo Incoming R adiant Results From [facility] - 09/10/2020 12:02 PM EDT EXAMINATION: MRI [...] gland, may consider dedicated thyroid ultrasound imaging. [employer] Phone: [employer] Phone: MRI CERVICAL SPINE WO CONTRA STon [...] Leandro Spaulding MD 09/10/20 Final result Normal [facility] COVID-19, NAAon 09-04-2020 SARS-CoV-2 (COVID-19) RNA AISHA+probe Ql (Unsp spec) Not detected Normal Not Detect [facility] Comment on above: Result Comment: This nucleic acid amplification test was developed and its performance characteristics determined by [employer]. Nucleic acid amplification tests include RT-PCR and [...] detected) result in this assay. Performed at: [address] [id number] Calendering Supervisor: Lane Rivera PhD, Phone: [phone] Performed By: #### I RCOV #### [facility] [address] [place] [id number] COVID-19, NAAon 09-02-2020 Source Swab Anterior nares Normal [facility] Comment on above: Performed By: #### I RCOV #### [facility] [address] [place] [id number] Vital Signs Date Time Vital Sign Value Performing Clinician Facility 05-30-2024 15:46-0500 Body mass index (BMI) [Ratio] 31.18 kg/m2 Ze Viviane DO Work Phone: [facility] 05-30-2024 15:46-0500 Body weight 79.83 kg Ze Viviane DO Work Phone: [facility] 05-30-2024 15:46-0500 Diastolic blood pressure 78 mm[Hg] Ze Viviane DO Work Phone: [facility] 05-30-2024 15:46-0500 Systolic blood pressure 122 mm[Hg] Ze Viviane DO Work Phone: [facility] 02-16-2023 15:45-0400 Body height 162.56 cm Edison Jeremías II Other [facility] Other 02-16-2023 15:45-0400 Body mass index (BMI) [Ratio] 25.4 kg/m2 Edison Dunklin II Other [facility] Other 02-16-2023 15:45-0400 Body weight 67.13 kg Edison Jeremías II Other [facility] Other 01-31-2023 18:30-0400 Diastolic blood pressure 78 mm[Hg] MD Gina Javier Work Phone: [facility] 01-31-2023 18:30-0400 Heart rate 98 /min MD Gina Javier Work Phone: [facility] 01-31-2023 18:30-0400 Respiratory rate 16 /min MD Gina Javier Work Phone: [facility] 01-31-2023 18:30-0400 SaO2% (BldA) [Mass fraction] 96 % MD Gina Javier Work Phone: [facility] 01-31-2023 18:30-0400 Systolic blood pressure 116 mm[Hg] MD Gina Javier Work Phone: [facility] 01-31-2023 16:45-0400 Body temperature 98 [degF] MD Gina Javier Work Phone: [facility] 01-31-2023 16:15-0400 Inhaled oxygen flow rate 10 L/min MD Gina Javier Work Phone: [facility] 01-31-2023 12:49-0400 Body height 160.02 cm MD Gina Javier Work Phone: [facility] 01-31-2023 12:49-0400 Body mass index (BMI) [Ratio] 26.5 kg/m2 MD Gina Javier Work Phone: [facility] 01-31-2023 12:49-0400 Body weight 68 kg MD Gina Javier Work Phone: [facility] 01-27-2023 15:30-0400 Body height 162.56 cm Edison Veronica II Other [facility] Other 01-27-2023 15:30-0400 Body mass index (BMI) [Ratio] 25.44 kg/m2 Edison Veronica II Other [facility] Other 01-27-2023 15:30-0400 Body weight 67.22 kg Edison Veronica II Other [facility] Other 07-05-2022 12:15-0400 Body height 162.56 cm Sawyer Greer Other [facility] Other 01-26-2022 10:40-0400 Body height 162.56 cm Santiago Cano Other [facility] Other 01-26-2022 10:40-0400 Body mass index (BMI) [Ratio] 36.9 kg/m2 Santiago Cano Other [facility] Other 01-26-2022 10:40-0400 Body weight 97.52 kg Santiago Cano Other [facility] Other 07-24-2021 13:31-0400 Body temperature 97.88 [degF] Jerry QUIÑONEZ General Surgery [place] 07-10-2021 14:00-0400 Body temperature 97.34 [degF] Jerry QUIÑONEZ [facility] [place] 11-19-2020 08:27-0400 Body temperature 98.1 [degF] Mejia Griffin MD Work Phone: [employer] Work Phone: 11-19-2020 08:27-0400 Diastolic blood pressure 78 mm[Hg] Mejia Griffin MD Work Phone: [employer] Work Phone: 11-19-2020 08:27-0400 Heart rate 109 /min Mejia Griffin MD Work Phone: [employer] Phone: 11-19-2020 08:27-0400 SaO2% (BldA) [Mass fraction] 98 % Mejia Griffin MD Work Phone: [employer] Work Phone: 11-19-2020 08:27-0400 Systolic blood pressure 118 mm[Hg] Mejia Griffin MD Work Phone: [employer] Work Phone: 11-19-2020 04:29-0400 Respiratory rate 18 /min Mejia Griffin MD Work Phone: [employer] Work Phone: 11-18-2020 08:30-0400 Body height 162.6 cm Mejia Griffin MD Work Phone: [employer] Work Phone: 11-18-2020 08:30-0400 Body mass index (BMI) [Ratio] 34.84 kg/m2 Mejia Griffin MD Work Phone: [employer] Work Phone: 11-18-2020 08:30-0400 Body weight 92.08 kg Mejia Griffin MD Work Phone: [employer] Work Phone: 09-09-2020 14:57-0400 Diastolic blood pressure 75 mm[Hg] Tillman 2 [employer] Work Phone: 09-09-2020 14:57-0400 Heart rate 93 /min Tillman 2 [employer] Work Phone: 09-09-2020 14:57-0400 Respiratory rate 16 /min Tillman 2 [employer] Work Phone: 09-09-2020 14:57-0400 Systolic blood pressure 169 mm[Hg] Tillman 2 [employer] Work Phone: 09-09-2020 12:41-0400 Body height 162.6 cm Tillman 2 [facility] Work Phone: 09-09-2020 12:41-0400 Body mass index (BMI) [Ratio] 34.67 kg/m2 [place] [address] [employer] Phone: 09-09-2020 12:41-0400 Body weight 91.63 kg Tillman [employer] Phone: 09-09-2020 12:41-0400 SaO2% (BldA) [Mass fraction] 99 % [place] [address] [employer] Phone: Encounters Encounter Date Encounter Type Care Provider Facility Start: 05-30-2024 End: 05-30-2024 Office outpatient visit 15 minutes Ze Viviane DO Work Phone: [facility] Comment on above: Dyspareunia [...] 02-02-2024 ambulatory MD Gina Javier Work Phone: [facility] Work Phone: Start: 02-02-2024 End: 02-02-2024 Patient encounter procedure MD Gina Javier Work Phone: [facility] Work Phone: Start: 04-20-2023 Office outpatient vi sit 15 minutes Edison Veronica II [facility] Start: 04-20-2023 End: 04-20-2023 Patient encounter procedure MD Gina Javier Work Phone: [facility] Start: 04-20-2023 End: 04-20-2023 ambulatory MD Gina Javier Work Phone: [facility] Work Phone: Start: 03-17-2023 End: 03-17-2023 Patient encounter procedure MD Gina Javier Work Phone: [facility] Start: 03-17-2023 End: 03-17-2023 ambulatory MD Gina Javier Work Phone: [facility] Work Phone: Start: 03-03-2023 (Post-Op) Post-Op Edison Jeremías II [facility] Start: 03-03-2023 End: 03-03-2023 ambulatory Edison Dunklin II Other [facility] Other Start: 02-16-2023 (Post-Op) Post-Op Edison Dunklin II [facility] Start: 02-16-2023 End: 02-16-2023 ambulatory Edison Jeremías II Other [facility] Other Start: 02-10-2023 (Post-Op) Post-Op Edison Jeremías II [facility] Start: 02-10-2023 End: 02-10-2023 ambulatory Edison Dunklin II Other [facility] Other Start: 02-09-2023 End: 02-09-2023 ambulatory Edison Dunklin II Other [facility] Other Start: 02-09-2023 Telephone encounter Edison Jeremías II [facility] Start: 01-31-2023 End: 01-31-2023 Admission to same day surgery center MD Gina Javier Work Phone: [facility] [place] Start: 01-31-2023 End: 01-31-2023 ambulatory MD Gina Javier Work Phone: [facility] Work Phone: Start: 01-27-2023 End: 01-27-2023 Discharged Recurring MD Gina Javier Work Phone: [facility] [place] Start: 01-27-2023 End: 01-27-2023 ambulatory MD Gina Javier Work Phone: [facility] Other Start: 01-27-2023 Patient encounter procedure Edison Dunklin II [facility] Start: 01-21-2023 (Prolonged) Prolonge d Services Edison Dunklin II [facility] Start: 01-21-2023 End: 01-21-2023 ambulatory Edison Dunklin II Other [facility] Other Start: 01-20-2023 End: 01-20-2023 ambulatory MD Gina Javier Work Phone: [facility] Work Phone: Start: 01-20-2023 End: 01-20-2023 Patient encounter procedure MD Gina Javier Work Phone: [facility] Work Phone: Start: 12-24-2022 End: 12-24-2022 ambulatory MD Gina Javier Work Phone: [facility] Work Phone: Start: 12-24-2022 End: 12-24-2022 Patient encounter procedure MD Gina Javier Work Phone: [facility] Start: 12-24-2022 End: 12-24-2022 ambulatory MD Gina Javier Work Phone: [facility] Work Phone: Start: 12-24-2022 End: 12-24-2022 Patient encounter procedure MD Gina Javier Work Phone: [facility] Start: 12-16-2022 End: 12-16-2022 ambulatory Sawyer Greer Other [facility] Other Start: 12-16-2022 Office outpatient vi sit 25 minutes Sawyer Greer [facility] [place] Start: 12-16-2022 Telephone encounter Sawyer Greer [facility] [place] Start: 09-09-2022 End: 09-10-[address] GINA JAVIER . Facility: Start: 08-24-2022 End: 08-24-2022 Patient encounter procedure MD Gina Javier Work Phone: [facility] Start: 08-24-2022 End: 08-24-2022 ambulatory MD Gina Javier Work Phone: [facility] Work Phone: Start: 08-24-2022 Office outpatient vi sit 25 minutes Sawyer Greer [facility] [place] Start: 08-16-2022 (Procedure) Tulio Greer [facility] Start: 08-16-2022 End: 08-16-2022 ambulatory Sawyer Greer Other [facility] Other Start: 08-04-2022 End: 08-04-2022 ambulatory Sawyer Barromana Other [facility] Other Start: 08-04-2022 Office outpatient vi sit 25 minutes Sawyer Greer [facility] [place] Start: 07-11-2022 Encounter for genera l adult medical examination without abnormal findings DR GINA JAVIER . [facility] Start: 07-08-2022 End: 07-09-[address] GINA JAVIER . Facility:[facility] Start: 07-08-2022 End: 07-09-2022 Encounter for general adult medical examination without abnormal findings DR GINA JAVIER . Facility:[facility] Start: 07-05-2022 End: 07-05-2022 ambulatory Sawyer Greer Other [facility] Other Start: 07-05-2022 Office outpatient vi sit 25 minutes Sawyer Greer [facility] [place] Start: 04-19-[address] GINA JAVIER . Facili ty:[facility] Start: 02-23-2022 End: 02-23-2022 ambulatory Sawyer Gerer Other [facility] Other Start: 02-23-2022 Office outpatient vi sit 15 minutes Sawyer Greer [facility] [place] Start: 02-15-2022 (Procedure) Short Sawyer Greer [facility] Start: 02-15-2022 End: 02-15-2022 ambulatory Sawyer Greer Other [facility] Other Start: 02-01-2022 End: 02-01-2022 ambulatory Sawyer Greer Other [facility] Other Start: 02-01-2022 Office outpatient ne w 45 minutes Sawyer Greer [facility] [place] Start: 02-01-2022 Telephone encounter Sawyer Greer [facility] Start: 01-26-2022 End: 01-26-2022 ambulatory Santiago Cano Other [facility] Other Start: 01-26-2022 Office outpatient ne w [address] [facility] Start: 12-24-2021 End: 12-25-[address] GINA JAVIER . Facility:[facility] Start: 11-26-2021 End: 11-27-[address] GINA JAVIER . Facility:[facility] Start: 07-24-2021 End: 07-24-2021 Patient encounter procedure Jerry Randolph N[facility] Start: 07-10-2021 End: 07-10-2021 Patient encounter procedure Jerry Randolph NILL General Surgery [facility] [place] Start: 11-18-2020 End: 11-19-2020 Evaluation and management of inpatient [facility] Start: 11-18-2020 End: 11-21-2020 ambulatory MEJIA GRIFFIN [facility] Start: 11-18-2020 End: 11-19-2020 Evaluation and management of inpatient Mejia Griffin MD Work Phone: [facility] Comment on above: Post-op pain (Primar y Dx); Pain; Muscle spasm Start: 11-18-2020 End: 11-20-2020 Subsequent hospital visit by physician Mejia Griffin MD Work Phone: [facility] Comment on above: Pain Start: 09-09-2020 End: 09-12-2020 ambulatory [facility] Start: 09-09-2020 End: 09-11-2020 Subsequent hospital visit by physician Andres Mri Room 2 [facility] MRI Comment on above: Cervical spondylosis with [...] EST Office Visit [facility] [address] [place] [address] Ze Pan, DO [address] [place] [address] [facility] Start: 05-30-2024 End: 05-30-2024 Patient encounter procedure 05/30/2024 3:20 PM EST Office Visit [facility] [address] [place] [id number] Ze Pan, DO [address] [place] [address] Arrived [facility] Comment on above: Arrived Start: 03-13-2024 End: 03-13-2025 DXA Skeletal system Views for bone density DEXA bone density Imaging Routine Well woman exam with routine gynecological exam Asymptomatic menopausal state Expected: 03/13/2024 (Approximate), Expires: 03/13/2025 [facility] Comment on above: Expected: 03/13/2024 (Approximate), Expires: 03/13/2025 Start: 03-13-2024 End: 05-13-2025 MG Breast - bilateral Screening Bilateral screening mammogram Imaging Routine Well woman exam with routine gynecological exam Encounter for screening mammogram for malignant neoplasm of breast Expected: 03/13/2024, Expires: 05/13/2025 [facility] Work Phone: Comment on above: Expected: 03/13/2024 , Expires: 05/13/2025 Start: 02-02-2024 Plain X-ray of left hip XR hip LT min 2V(w/wo pelvis)* [facility] Start: 02-02-2024 XR Hip - left 2 [facility] Start: 01-31-2023 [facility] Start: 01-31-2023 [facility] Start: 01-31-2023 Physical therapy procedure [facility] Start: 01-20-2023 [facility] Start: 12-24-2022 MRSA Culture MRSA Culture [facility] Start: 12-17-2020 Influenza vaccination [facility] [employer] Work Phone: Start: 12-05-2020 End: 12-05-2020 Patient encounter procedure 12/05/2020 Office Visit Neurosurgery Mejia Griffin MD [address] [email or web address] [facility] [address] [place], [place] [id number] [facility] Start: 09-19-2020 End: 09-19-2020 Patient encounter procedure 09/19/2020 Office Visit Neurosurgery Mejia Griffin MD [address] [email or web address] [facility] [address] [place], [place] [id number] [facility] Start: 12-13-2019 Screening for malign ant neoplasm of breast Breast cancer screen [employer] Phone: Start: 12-13-2019 Screening for malign ant neoplasm of colon Colon cancer screen colonoscopy [employer] Phone: Start: 12-13-2019 Shingles Vaccine (1 of 2) Shingles Vaccine (1 of 2) [employer] Phone: Start: 2014 Screening for malign ant neoplasm of colon Colon cancer screen colonoscopy [employer] Phone: Start: 2009 Diabetes screen Diabetes screen [employer] Phone: Start: 1990 Screening for malign ant neoplasm of cervix Cervical cancer screen [employer] Phone: Start: 1988 DTaP/Tdap/Td vaccine (1 - Tdap) DTaP/Tdap/Td vaccine (1 - Tdap) [employer] Phone: Start: 1984 HIV screening HIV screen [facility] Work Phone: Start: 1981 COVID-19 Vaccine (1) COVID-19 Vaccin e (1) [facility] [employer] Phone: Start: 12-13-1979 Lipid panel Lipid screen [facility] Work Phone: Start: 1969 Creatinine measurement Creatinine mo nitoring [employer] Phone: Start: 1969 Hepatitis C screening Hepatitis C sc reen [employer] Phone: Start: 1969 Potassium monitoring Potassium monit oring [employer] Phone: Continuous pulse oximetry Pulse oximetry, continuous Respiratory Care Routine Every 4hr until discontinued starting 11/18/2020 [employer] Phone: Comment on above: Every 4hr until disc ontinued starting 11/18/2020 Cotinine [Mass/volum e] in Serum or Plasma [facility] End: 11-18-2020 Fluoroscopy during operation [facility] FOR SURGICAL PROCEDURES Imaging Routine Pain Once for 1 Occurrences starting 11/18/2020 until 11/18/2020 [employer] Phone: Comment on above: Once for 1 Occurrenc es starting 11/18/2020 until 11/18/2020 Fluoroscopy during operation FLUORO FOR SURGICAL PROCEDURES Imaging Routine Pain 11/18/2020 1:30 PM EDT [employer] Phone: Glucose measurement estimated from glycated hemoglobin [facility] Methicillin resistan t Staphylococcus aureus [Presence] in Unspecified specimen by Organism specific culture [facility] Nicotine [Mass/volum e] in Serum or Plasma [facility] Oxygen therapy [[facility] [place] [facility] Data Set] [employer] Phone: Comment on above: Daily until disconti nued starting 09/09/2020 Daily until disconti nued starting 11/18/2020 Phase I & II - meter ed glucose Phase I & II - metered glucose Point of Care Testing Routine As Needed until discontinued starting 09/09/2020 [employer] Phone: Comment on above: As Needed until disc ontinued starting 09/09/2020 Spirometry panel Incentive joaquín metry Respiratory Care Routine Every 2hr while awake until discontinued starting 09/09/2020 [employer] Phone: Comment on above: Every 2hr while awak e until discontinued starting 09/09/2020 Surgical Pathology [facility] Work Phone: Comment on above: Release Upon Orderin g for 1 Occurrences starting 11/18/2020 End: 11-18-2020 Surgical Pathology Surgical Pathology Lab Routine Once for 1 Occurrences starting 11/18/2020 until 11/18/2020 [facility] Work Phone: Comment on above: Once for 1 Occurrenc es starting 11/18/2020 until 11/18/2020 THIN PREP TIS PAP AN D HR HPV DNA THIN PREP TIS PAP AND HR HPV DNA Pathology and Cytology Routine Well woman exam with routine gynecological exam Ordered: 03/13/2024 [facility] Healthcare Comment on above: Ordered: 03/13/2024 [facility] Immunizations Immunization Date Immunization Notes Care Provider Fa cility NEGATED: Highlighted row has not occurred!06-10-2021 influenza virus vaccine, unspecified formulation Jerry QUIÑONEZ [facility] [place] Payers Date Payer Category Payer Self-pay [id number] 2021 [facility] er [id number] 2020 Private Health Insurance [id number] 2020 Private Health Insurance [id number] 1969 Unknown [id number] [id number]. 2.182 1969 Unknown [id number] [id number]. 2.182 1969 Unknown [id number] [id number]. 2.182 1969 Unknown [id number] 2.16.840.1.367256.3.579. 2.593 1969 Unknown [id number] 2.16.840.1.263735.3.579. 2.593 1969 Unknown [id number] 2.16.840.1.571663.3.579. 2.593 1969 Unknown [id number] 2.16.840.1.938276.3.579. 2.593 1969 Unknown [id number] [id number]. 2.593 [id number] 1959 Self-pay [id number] [id number] Private Health Insurance [employer] [id number] Unknown [id number] [id number]. 2.531 Unknown [id number] [id number]. 2.531 Unknown [id number] [id number]. 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 Tobacco smoking stat [facility] Tobacco smoking consumption unknown [facility] Medical Equipment Procedure Code Equipment Code Equipment Original Text Equipment Identifier Dates Arthroplasty, hip, total, anterior approach Acetabular shell [id number] FDA Start: 01-31-2023 Arthroplasty, hip, total, anterior approach Orthopaedic bone screw, non-bioabsorbable, sterile ()[id number] FDA Start: 01-31-2023 Arthroplasty, hip, total, anterior approach Orthopaedic bone screw, non-bioabsorbable, sterile ()[id number] FDA Start: 01-31-2023 Arthroplasty, hip, total, anterior approach Ceramic femoral head prosthesis ()[id number] FDA Start: 01-31-2023 Arthroplasty, hip, total, anterior approach Coated hip femur prosthesis, modular ()[id number] FDA Start: 01-31-2023 Arthroplasty, hip, total, anterior approach Non-constrained polyethylene acetabular liner ()[id number] [facility] Start: 01-31-2023 Cage Spnl W11xh8 xl14mm Lum Lord Intbdy Fus [facility] - [id number] Start: 11-18-2020 Graft Spnl W11xh [id number] Corticocancellous Lord [facility] - [id number] Start: 11-18-2020 Screw Spnl L7mm Dia2.6mm Lum Lat Mass Leverage Lfs [id number] Start: 11-18-2020 Plate Spnl L42mm Ant Cerv 2 Lev Translational [place] [facility] [id number] Start: 11-18-2020 Screw Spnl L13mm Dia4mm Ant Cerv [facility] Mel[facility] Ang Compr [place] [facility] [id number] Start: 11-18-2020 Screw Spnl [...] nursing note reviewed. Exam conducted with a extra hand present. Vitals: Estimated body mass index is [...] Ze Pan DO documented in this encounter [facility] 03-13-2024 History of Presen t illness Narrative [...] nursing note reviewed. Exam conducted with a extra hand present. Vitals: Estimated body mass index is [...] Ze Pan DO documented in this encounter [facility] 04-20-2023 Evaluation note Encounter Date Diagnosis Assessment Notes Apr, S/P total left hip arthroplasty (ICD-10 - Z96.642) Apr, Aftercare following joint replacement surgery (ICD-10 - Z47.1) Apr, Presence of left artificial hip joint (ICD-10 - Z96.642) Apr, Other [facility] [place]23 Overall she is doing great. [...] to call with any questions or concerns. [facility] Other 11-16-2023 Evaluation note* Encounter Date Diagnosis [...] weeks with x-rays of the left hip. [facility] Other 11-01-2023 Evaluation note* Encounter Date Diagnosis Assessment Notes Treatment Notes Treatment Clinical Notes Feb, S/P total left hip arthroplasty (ICD-10 - Z96.642) Feb, Aftercare following joint replacement surgery (ICD-10 - Z47.1) Feb, Presence of left artificial hip joint (ICD-10 - Z96.642) Feb, Other [facility] on 01/31/2023 Overall patient is doing [...] off narcotic pain medication. They can take yych-fea-bjrftfi anti-inflammatories as needed for assistance with swelling [...] examination and x-rays of the left hip. [facility] Other 10-26-2023 Evaluation note* Encounter Date Diagnosis [...] to help calm down this allergic reaction. [facility] Other 10-12-2023 Evaluation note* Encounter Date Diagnosis Assessment Notes Treatment Notes Treatment Clinical Notes Jan, Primary osteoarthritis of left hip (ICD-10 - M16.12) Jan, Age-related osteoporosis without current pathological fracture (ICD-10 - M81.0) Jan, Other terminal manager (current) drug therapy (ICD-10 - Z79.899) Jan, Other 1. Left JILLIAN Home Medications - DVT prophylaxis: Aspirin - NSAID: Celebrex - Disposition: Same-day discharge Joints Meeting Checklist - Pharmacy: [facility] to bed - Approach/Technique: anterior, Sherman bed - Implants: Avenir Complete/G7; - Anesthesia: general vs spinal - Blocks: Fascia iliaca - Preop Antibiotics: Ancef - TXA: yes-systemic - Positioning/OR Bed: supine on Sherman bed - Intraop X-ray: yes - Fraser: [...] above surgery. OARRS report generated and reviewed. [facility] Other 10-06-2023 Evaluation note* Encounter Date Diagnosis [...] patient could proceed with surgery safely. The field nurse case manager was vital for surgery timing and [...] plans. Prolonged services time spent: 32 minutes [facility] Other 08-31-2023 Evaluation note* Encounter Date Diagnosis [...] note writ ten by Nino Reese MA, [employer]. Edited and approved by Dr. Sawyer Greer MD. [facility] Other 08-31-2023 Evaluation note* Encounter Date Diagnosis Assessment Notes Treatment Notes Treatment Clinical Notes Nov, Osteoarthritis of left hip (ICD-10 - M16.12) [facility] Other 05-09-2023 Evaluation note* Encounter Date Diagnosis [...] note writ ten by Jcarlos Jovel LPN, [employer]. Edited and approved by Dr. Sawyer Greer MD. [facility] Other 04-19-2023 Evaluation note* Encounter Date Diagnosis [...] note writ ten by Jcarlos Jovel LPN, [employer]. Edited and approved by Dr. Sawyer Greer MD. [facility] Other 03-20-2023 Evaluation note* Encounter Date Diagnosis [...] note writ ten by Jcarlos Jovel LPN, [employer]. Edited and approved by Dr. Sawyer Greer MD. [facility] Other 11-08-2022 Evaluation note* Encounter Date Diagnosis [...] note writ ten by Nino Reese MA, [employer]. Edited and approved by Dr. Sawyer Greer MD. [facility] Other 10-17-2022 Evaluation note* Encounter Date Diagnosis [...] note writ ten by Jcarlos Jovel LPN, [employer]. Edited and approved by Dr. Sawyer Greer [...] negative findings were considered in medical decision-making. [facility] Other 10-11-2022 Evaluation note* Encounter Date Diagnosis [...] be able to perform normal work duties. [facility] Other 02-23-2022 NoteChief Complaint consultation for right inguinal hernia [facility] Staff 50 year old female presents on [...] 06/10/2021 Family History ALS (more content not included)...[facility] Result Comment: Electronically Signed By: KHANG BARTH, Jerry Warren\Date and Time Signed: 06/10/21 16:23 [id number] Hospital Discharge instructions* Instructions* Nemo Calixto APRN [...] drive until follow up [facility] Phone: 1(128) 653-780608-04-2021 History of Present illness Narrative* Krysten Villegas OTR/Krysta - 11/19/2020 10:42 AM EDT [facility] OCCUPATIONAL THERAPY EVALUATION - ACUTE NAME: Ana Palmer : 1970 (49 y.o.) CODE STATUS: Full Code Room: 24/N224[facility] Date of Service: 11/19/2020 Patient Diagnosis(es): Cervical [...] Ambulation Assistance: Independent Transfer Assistance: Independent Active Holder Pile Driving: Yes Occupation: Unemployed 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 to [...] from home with family who presents to [facility] with the above deficits which [...] How much help for eating meals?: None [facility] Inpatient Daily Activity Raw Score: 19 [facility] Inpatient ADL T-Scale Score : [...] Physical Therapy Med Surg Initial Assessment Facility/Department: [address] NEURO Room: 24/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 Please refer to the procedure report.[employer] Phone: 1(317) 246-294808-03-2021 NoteEXAMINATION: FLUORO FOR SURGICAL PROCEDURES CLINICAL HISTORY: R52 Pain ICD10 COMPARISONS: None available. FINDINGS: Fluoroscopic assistance was provided during ACDF, C5-6 and C6-7 The total radiationtime is 31.9 seconds, radiation dose is 3.62mGy.[employer] Phone: 1(163) 559-234208-03-2021 NoteEXAMINATION: FLUORO FOR SURGICAL PROCEDURES CLINICAL HISTORY: R52 Pain ICD10 COMPARISONS: None available. FINDINGS: Fluoroscopic assistance was provided during ACDF, C5-6 and C6-7 The total radiation time is 31.9 seconds, radiation dose is 3.62mGy. IMPRESSION: Intraprocedural fluoroscopic support has been provided. Please refer to the procedure report. Interpreted by: Leandro Spaulding MD Signed by: Leandro Spaulding MD 11/18/20 [facility] Future Appointments Appointment Date:07/24/2021 01:20:00 PM Scheduled Provider:Jerry QUIÑONEZ MD Location:[facility] Appointment Type: Post Op 15 General Surgery [employer] Evaluation note* Diagnosis Cervical spondylosis with myelopathy Cervical stenosis of spine Spinal stenosis in cervical region Cervical radiculopathy Brachial neuritis or radiculitis nos documented in this encounter [employer] Work Phone: [email or web address] note* Diagnosis Post-op pain- Primary Other acute postoperative pain Pain Generalized pain Muscle spasm Spasm of muscle Cervical cord compression with myelopathy (HCC) Unspecified disease of spinal cord documented in this encounter [employer] Phone: [email or web address] note* Diagnosis Pain Generalized pain documented in this encounter [employer] Phone: [email or web address] noteNo InformationNort [employer] Other Evaluation noteNo assessment information available [facility] Work Phone: Evaluation note* Diagnosis Onset Date Resolution Status Aftercare following left hip joint replacement surgery acute [facility] Work Phone: Evaluation note* Diagnosis Well woman [...] neck biopsy Hospitalization History see surgical hx [facility] Other [facility] general Narrative - Reported* Type Description Date Medical History Arthritis Medical History high cholesterol Medical History migraine headache Medical History chronic depression Medical History anxiety Surgical History C section Surgical History hernia repair Surgical History hysterectomy Surgical History neck biopsy Surgical History [facility]THA 01/31/2023 Hospitalization History see surgical hx [facility] Other Hospital course Narrative No data available for this section General Surgery [facility] Discharge instructions* Attachments The following attachments cannot be sent through Care Everywhere. * Sedation: General Info (Romanian) documented in this [facility] Work Phone: Hospital Discharge instructions No data available for this section General Surgery [facility] Discharge instructions Additional Instructions Joint Replacement Discharge Instructions Your safety during your recovery process is important to us. Please seek immediate emergency care if you have sudden chest pain or shortness of breath. Additionally, please call our office at [phone] should any of the following occur: wound [...] to walk without your walker and your healthcare analyst until the therapist checks you the following [...] and/or laxatives as directed. You may take dxji-gvi-flizkou Benadryl if itching occurs without a rash or hives. Icing and elevation will help relieve pain as well, do not underestimate the power of ice and elevation. We do recommend that you stop taking narcotic pain medications by 4-6 weeks after surgery and if necessary, continue to use anti-inflammatory medications such as Mobic (meloxicam), Celebrex (celecoxib), or an yiou-lkt-fexupyt medication (Aleve, Motrin, Ibuprofen, etc). Driving an [...] feel free to call our office at [phone]. You are a priority of ours and we will not be upset with you if you call. We would much rather you call to confirm aspects of your recovery process as opposed to possibly hindering your recovery with inappropriate care. We are committed to providing you with the best care possible. Edison Veronica II, MD Updated 07/02/2022[facility] Work Phone: Reason for Referral Status Reason Specialty Diagnoses / Procedures Referre d By Contact Referred To Contact Closed Radiology Diagnoses Cervical spondylosis with myelopathy Cervical stenosis of spine Cervical radiculopathy Procedures MRI CERVICAL SPINE WO CONTRAST Mejia Griffin MD [email or web address] [place] [address] Status Reason Specialty Diagnoses / Procedures Referre d By Contact Referred To Contact Closed Radiology Diagnoses Pain Procedures Fluoro For Surgical Procedures Mejia Griffin MD [email or web address] [place] [address] Reason *Waiting for appt Evaluate and Treat Sacroiliac and Trochanteric Bursitis L Hip Diagnosis 1 Inflammation of left sacroiliac joint (M46.1) Diagnosis 2 Greater trochanteric bursitis of left hip (M70.62) Referral Organization [facility] Ne urosurgery Referring Provider First Name Santiago Referring Provider Last Name Jerome Referring Provider Specialty Neurologica l Surgery Referred Organization [facility] [place] Referred Provider Sawyer Greer Referred Address [address],[place],[address] Referred Provider Specialty Pain Medicin e Referral Priority Routine General Notes Nisa Zelaya M 022 10:44:35 AM >Received today and sent P2P Reason severe left hip/ helen in/ thigh pain Diagnosis 1 Osteoarthritis of le ft hip (M16.12) Referral Organization [facility] Pain Managemen t [facility] [place] Referring Provider First Name Sawyer Referring Provider Last Name Zoey Referring Provider Specialty Pain Medici ne Referred Organization [facility] Referred Provider Edison Veronica II Referred Address [address] [facility] [address] [place], [place],[address] Referred Provider Specialty Orthopedic S urgery Referral [...] CERVICAL SPINE WO CONTRAST Mejia Griffin MD [address] [place] [address] Status Reason Specialty Diagnoses / Procedures Re ferred By Contact Referred To Contact Diagnoses Cervical stenosis (uterine cervix) Cervical radiculopathy Spondylosis Cord compression (HCC) STENOSIS, RADICULOPATHY, SPONDYLOSIS, CORD COMPRESSION Procedures AR SPINAL FUSION,ANT,EA ADNL LEVEL AR LUMB SP FUSN,POST INTERBDY,EA ADDNL AR ARTHRODESIS ANT INTERBODY INC DISCECTOMY, CERVICAL BELOW C2 AR C-LAMINOPLASTY W/GRAFT/PLATE, 2 OR MORE ANTERIOR INSTRUMENTATION 2-3 VERTEBRAL SEGMENTS AR ALLOGRAFT FOR SPINE SURGERY ONLY STRUCTURAL AR ARTHRODESIS ANT INTERBODY INC DISCECTOMY CERVICAL BELOW C2 EA ADDL A.C.D.F (ANTERIOR CERVICAL DISKECTOMY FUSION) C5-6 C6-7 WITH POSTERIOR DECOMPRESSION LAMINOPLASTY SPANNING FROM C3-4-5-6/ 2 HRS/ 1 C-ARM. NUVASIVE/ S.S.E.P, PAT AT [facility] Mejia Griffin MD [address] [address] [facility] Reason Comments Gynecologic Exam Reason Comments Follow-up Pt present today for a f/up visit for medication Estrace. INFORMATION SOURCE (unrecogn ized section and content) DATE CREATED AUTHOR 11/09/2020 [facility] DATE CREATED AUTHOR AUTHOR'S ORGANIZ ATION 11/22/2020 [facility] DATE CREATED AUTHOR AUTHOR'S ORGANIZ ATION 08/16/2021 [facility] DATE CREATED AUTHOR AUTHOR'S ORGANIZ ATION 09/24/2022 [facility] DATE CREATED AUTHOR AUTHOR'S ORGANIZ ATION 02/04/2024 [facility] Ordered Prescriptions (unrec ognized [...] 100 mL IVPB (COMPLETED) 2,000 mg, Intravenous, VAT PACKER TO O.R., 1 dose, On Tue11/18/20 at [...] Entry - Provider: Joe Mantilla APRN - CHEMICAL PLANT OPERATOR SUPERVISOR)1447 (Stopped - Provider: Joe Mantilla APRN - CHEMICAL PLANT OPERATOR SUPERVISOR)1544 (New Bag - Provider: Juliane Alonso, [...] Status: Inactive Member Role Status Dates Gina Javeir MD Primary Care Provider Active Start: February 02, 2024 End: February 02, 2024 Edison Veronica II, MD Attending Provider Active Start: February 02, 2024 End: February 02, 2024 Team Status: Active Member Role Status Dates Gina Javier MD Primary Care Provider Active Start: February 02, 2024 Edison Veronica II, MD Attending Provider Active Start: February 02, 2024 Pocket Assembler Relationship Specialty Start Date End Date Gina Javier MD [facility] [place] [address] PCP - General Family Medicine 05/30/24 Pocket Assembler Relationship Specialty Start Date End Date Gina Javier MD [address] [place] [id number] PCP - General Family Medicine 05/30/24 Goals [...] BE BASED ON THE PRIMARY CLINICAL RECORDS. [facility]. provides no warranty or guarantee of the accuracy or completeness of information in this document.
[2024-08-04 11:52] LABS: Thyroid Stimulating Hormone <0.007 uIU/mL (0.358-3.740)
[2024-08-06 16:08] LABS: Thyroglobulin Antibody <1.0 IU/mL (0.0-0.9); Thyroid Peroxidase (TPO) Ab 15 IU/mL (0-34)
== END 2024-08-04 10:53 | disposition home or self-care (01) ==
LOC: LAB 10:53
PROVIDERS: PCP Family Medicine; Visit Provider Family Medicine
DX: E03.9 Hypothyroidism, unspecified (principal)
CPT/HCPCS: 36415; 84436; 84443; 84481; 86376; 86800

== ENCOUNTER 2024-08-07 16:29 | Outpatient (OUT) | payer BC, SELFPAY ==
--- NOTE | 2024-08-07 17:01 | US_ITS ---
The [address] [address] Patient Name: ANA PALMER MRN: [id number] date: 1970 Sex: F Assigned Patient Location: US Current Patient Location: US Accession/Order Number: [id number] Exam Date: 08/07/2024 22:17 Report Date: 08/07/2024 22:20 At the request of: GINA GARZA MD Procedure: US thyroid Thyroid ultrasound Reason for exam: Left neck lump for 9 months Comparison: none Technique: Grayscale and color Doppler images of the thyroid gland were obtained. Findings: The right lobe measures 4.7 x 1.9 x 2.1 cm. The left lobe measures 5.7 x 2.2 x 2.3 cm. Isthmus measures 2.7 mm. The thyroid gland is heterogenous in echotexture with multiple nodules present largest within the right lobe involving its inferior pole measuring 19 x 14 x 17 mm. This is predominantly hypoechoic without microcalcifications. A dominant nodule involving the left lobe measures 20 x 18 x 21 mm involving its mid to inferior aspect which has solid and cystic components as well as a shadowing calcification. Imaging of the left submandibular region in the area of lump demonstrates benign-appearing lymph nodes present. US/US thyroid Impression: Evidence of multinodular goiter largest nodule measuring 20 x 18 x 21 mm involving the mid inferior aspect of the left lobe. FNA should be considered. In the area palpable lump involving the left submandibular region, benign-appearing lymph nodes are present. No solid mass. Impression dictated by: Aftab Powell Jr., D.O.08/07/2024 10:20 PM Dictation Location: [facility] Electronically authenticated by: [id number] Y Date: 08/07/2024 22:20
[2024-08-09 15:08] LABS: Thyroglobulin Antibody <1.0 IU/mL (0.0-0.9); Thyroid Peroxidase (TPO) Ab 13 IU/mL (0-34)
== END 2024-08-07 16:30 | disposition home or self-care (01) ==
LOC: US 16:29
PROVIDERS: PCP Family Medicine; Visit Provider Family Medicine
DX: R22.1 Localized swelling, mass and lump, neck (principal); R79.89 Other specified abnormal findings of blood chemistry; E04.2 Nontoxic multinodular goiter
CPT/HCPCS: 36415; 76536; 86376; 86800

== ENCOUNTER 2024-09-22 12:18 | Outpatient (OUT) | payer BC, SELFPAY ==
--- OUTSIDE RECORDS SUMMARY | 2024-09-22 12:22 | XMS_ITS | CCD ---
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 Admitting Unavailable ELIAS, MEJIA H. Attending Unavailable ELIAS, MEJIA H. Attending Unavailable ELIAS, MEJIA H. Referring Unavailable GINA JAVIER Primary Care Unavailable GINA JAVIER Primary Care Unavailable ELIAS, MEJIA H. Referring Unavailable Gina Javier Primary Care Physician Santiago Cano Unavailable Sawyer Greer Unavailable MD Gina Javier Primary Care Provider [phone] MD Sawyer Greer Attending Provider DR GINA [...] grepafloxacin (3 sources) grepafloxacin Drug Allergy 1 [facility] (12 sources) grepafloxacin; Translations: [grepafloxacin] Drug Allergy 1 Skin reaction (observable entity) [facility] [place] (2 sources) grepafloxacin Drug Allergy [facility] Repository (8 sources) Adhesive Tape; Translations: [adhesive tape] Propensity to adverse reactions 3 Itching [facility] (1 source) grepafloxacin Drug Allergy 3 [facility] Repository Medications Current Medications Medication Drug Class(es) [...] oral capsule (7 sources) Start: 01-20-2023 take 07734 ug by mouth once daily Biotin Active 16323 MCG PO Daily January 20, 2023 12:00am [...] by mouth once daily Multiple Vitamins-Minerals (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 [facility] Comment on above: TESTS RESULT FLAG UN ITS REF RANGE LAB Clinician Provided Cytology Information Source.............Vagina No. of containers..01 ThinPrep Vial Age Algo ACOG Darline... 30-65 01 FLAG LEGEND: L-Low Normal,H-High Normal,LL-Alert Low,HH-Alert High <-Panic Low,>-Panic High,A-Abnormal,AA-Critical Abnormal Performed at: 01 =G [address] [address] Michelle Rahman MD, HPV APTIMA Negative Negative [facility] Comment on above: This nucleic acid am plification test detects fourteen high- risk HPV types (16,18,31,33,35,39,45,51,52,56,58,59,66,68) without differentiation. Performed at: =G - [facility] [address] [place] [id number] Certified Composites Technician: Michelle Rahman MD, Phone: [phone] Performed at: [facility] [address] [address] [place], [place] [id number] Certified Composites Technician: Chris Enriquez MD, Phone: [phone] IGP, APTIMA HPV, RFX 16/18,45 Note . [facility] Comment on above: TESTS RESULT FLAG UN ITS REF RANGE LAB DIAGNOSIS: 02 NEGATIVE FOR INTRAEPITHELIAL LESION OR MALIGNANCY. CELLULAR CHANGES ASSOCIATED WITH ATROPHY ARE PRESENT. THIS SPECIMEN WAS RESCREENED PART OF OUR [employer] PROGRAM. Specimen adequacy: 02 Satisfactory for evaluation. Performed by: 02 Chanelle Padilla, [place] (ASC) QC reviewed by: 02 Simon Wong, [place] (ASCP) . 02 Note: Note 03 The [...] High,A-Abnormal,AA-Critical Abnormal Performed at: 02 [facility] [address] [address] [place] [address] Chris Enriquez MD, 03 WB [facility] [place] [address] [facility] [place] [place] [address] Michelle Rahman MD, SPATULA-ALONE [facility] XR hip LT min 2V(w/wo pelvis )*on 02-02-2024 XR hip LT min 2V(w/wo pelvis)* [facility] [address] [place] [address] XRay Report Signed Patient: Ana Palmer MR#: [id number] : 1970 Acct:[id number] Age/Sex: 53 / F ADM Date: 02/02/24 Loc: [facility] Room: Type: [facility] Attending Dr: Edison Veronica II, MD Copies [...] Radha Godinez M.D.02/02/2024 9:56 AM Dictation Location: [place] [address] Transcribed By: [facility] 02/02/24 0956 Dictated By: Radha Godinez MD 02/02/24 0950 Signed By: 02/02/24 0956 Normal [facility] XR hip LT min 2V(w/wo pelvis )*on 04-20-2023 XR hip LT min 2V(w/wo pelvis)* [facility] Other XR hip LT min 2V(w/wo pelvis)* [facility] Main [place] [facility] Other XR hip LT min 2V(w/wo pelvis)* [address] [facility] Other XR hip LT min 2V(w/wo pelvis)* [place] [address] [facility] Other XR hip LT min 2V(w/wo pelvis)* XRay Report [facility] Other XR hip LT min 2V(w/wo pelvis)* Signed [facility] Other XR hip LT min 2V(w/wo pelvis)* Patient: Ana Palmer MR#: [id number] [facility] Other XR hip LT min 2V(w/wo pelvis)* : 1970 Acct:[id number] [facility] Other XR hip LT min 2V(w/wo pelvis)* Age/Sex: 52 / F ADM Date: 04/20/23 [facility] Other XR hip LT min 2V(w/wo pelvis)* Loc: [facility] Room: Type: [facility] Other XR hip LT min 2V(w/wo pelvis)* Attending Dr: Edison Veronica II, MD [facility] Other XR hip LT min 2V(w/wo pelvis)* Copies to: Edison Veronica MD [facility] Other XR hip LT min 2V(w/wo pelvis)* Ordering Provider: Edison Veronica MD [facility] Other XR hip LT min 2V(w/wo pelvis)* Date of Service: 04/20/23 [facility] Other XR hip LT min 2V(w/wo pelvis)* XR/XR hip LT min 2V(w/wo pelvis)*: S/P total left hip arthroplasty [facility] Other XR hip LT min 2V(w/wo pelvis)* AP PELVIS AND LEFT HIP - 2 views: [facility] Other XR hip LT min 2V(w/wo pelvis)* CLINICAL HISTORY: Follow-up left hip replacement [facility] Other XR hip LT min 2V(w/wo pelvis)* COMPARISON: 03/17/2023 [facility] Other XR hip LT min 2V(w/wo pelvis)* AP view of the pelvis and crosstable lateral view of the left hip were obtained. A left hip [facility] Other XR hip LT min 2V(w/wo pelvis)* prosthesis is again visualized. The hardware appears intact and unchanged from the prior. There is [facility] Other XR hip LT min 2V(w/wo pelvis)* no developing fracture or dislocation. There is minor sclerosis at the SI joints. There are no [facility] Other XR hip LT min 2V(w/wo pelvis)* significant soft tissue abnormalities. [facility] Other XR hip LT min 2V(w/wo pelvis)* XR/XR hip LT min 2V(w/wo pelvis)* [facility] Other XR hip LT min 2V(w/wo pelvis)* IMPRESSION: [facility] Other XR hip LT min 2V(w/wo pelvis)* STABLE LEFT HIP REPLACEMENT [facility] Other XR hip LT min 2V(w/wo pelvis)* Impression dictated by: Radha Godinez M.D.04/20/2023 11:47 AM [facility] Other XR hip LT min 2V(w/wo pelvis)* Dictation Location: [facility] Other XR hip LT min 2V(w/wo pelvis)* Transcribed By: SAAD 04/20/23 1147 [facility] Other XR hip LT min 2V(w/wo pelvis)* Dictated By: Radha Godinez MD 04/20/23 1149 [facility] Other XR hip LT min 2V(w/wo pelvis)* Signed By: [facility] Other XR hip LT min 2V(w/wo pelvis)* 04/20/23 114 [facility] Other XR hip LT min 2V(w/wo pelvis)* [facility] [place] [place] [address] XRay Report Signed Patient: Ana Palmer MR#: [id number] : 1970 Acct:[id number] Age/Sex: 52 / F ADM Date: 04/20/23 Loc: [facility] Room: Type: [facility] Attending Dr: Edison Veronica II, MD Copies [...] By: 04/20/23 1147 Normal [facility] XR hip LT min 2V(w/wo pelvis )*on 03-17-2023 XR hip LT min 2V(w/wo pelvis)* [facility] [place] [place] [address] XRay Report Signed Patient: Ana Palmer MR#: [id number] : 1970 Acct:[id number] Age/Sex: 52 / F ADM Date: 03/17/23 Loc: [facility] Room: Type: [facility] Attending Dr: Edison Veronica II, MD Copies [...] By: 03/17/23 1305 Normal [facility] Glucose Glucometer (BldC) [M ass/Vol]Ordered By: Edison Veronica on 01-31-2023 Glucose [Mass/Vol] 179 mg/dL [facility] Comment on above: Random Glucose Refer ence Range is dependent on time and content of last meal. Glucose of more than 200 mg/dL in a nonstressed, ambulatory subject supports the diagnosis of Diabetes Mellitus. Automated erythrocytes count in urine sediment (number/area)Ordered By: Edison Veronica on 01-20-2023 RBC Auto (Urine sed) [#/Area] None seen [HPF] 0-4 [facility] Automated leukocytes count i n urine sediment (number/area)Ordered By: Edison Veronica on 01-20-2023 WBC Auto (Urine sed) [#/Area] 3-4 [HPF] 0-4 [facility] Basophils Auto (Bld) [#/Vol] Ordered By: Edison Veronica on 01-20-2023 Basophils (Bld) [#/Vol] 0.0 10*3/uL 0.0-0.2 [facility] Basophils/100 WBC Auto (Bld) Ordered By: Edison Veronica on 01-20-2023 Basophils/100 WBC (Bld) 1.0 % . [facility] Bilirubin Test strip Ql (U)O rdered By: Edison Veronica on 01-20-2023 Bilirubin Ql (U) Negative Negative [facility] Calcium [Mass/volume] in Ser um or PlasmaOrdered By: Edison Veronica on 01-20-2023 Calcium [Mass/Vol] 9.2 mg/dL 8.6-10.3 [facility] Carbon dioxide, total [Moles /volume] in Serum or PlasmaOrdered By: Edison Veronica on 01-20-2023 CO2 [Moles/Vol] 29.0 mmol/L 21.0-31.0 [facility] Chloride [Moles/volume] in S sima or PlasmaOrdered By: Edison Veronica on 01-20-2023 Chloride [Moles/Vol] 103 mmol/L 98-107 [facility] Color Auto (U)Ordered By: Lilian Veronica on 01-20-2023 Color (U) Yellow Yellow [facility] Creatinine [Mass/volume] in Serum or PlasmaOrdered By: Edison Veronica on 01-20-2023 Creatinine [Mass/Vol] 0.67 mg/dL 0.60-1.20 [facility] Eosinophils Auto (Bld) [#/Vo l]Ordered By: Edison Veronica on 01-20-2023 Eosinophils (Bld) [#/Vol] 0.0 10*3/uL 0.0-0.45 [facility] Eosinophils/100 WBC Auto (Bl d)Ordered By: Edison Veronica on 01-20-2023 Eosinophils/100 WBC (Bld) 0.0 % . [facility] Erythrocyte distribution wid th Auto (RBC) [Ratio]Ordered By: Edison Veronica on 01-20-2023 Erythrocyte distribution width (RBC) [Ratio] 14.0 % 11.9-15.3 [facility] Fructosamine [Moles/volume] in Serum or PlasmaOrdered By: Edison Veronica on 01-20-2023 Fructosamine [Moles/Vol] 196 umol/L 0-285 [facility] Comment on above: Published reference interval for apparently healthysubjects between age 20 and 60 is 205 - 285 umol/L and in apoorly controlled diabetic population is 228 - 563 umol/Lwith a mean of 396 umol/L.Performed at: [employer] Director: Lane Rivera PhD, Phone: [phone] Glucose [Mass/volume] in Ser um or PlasmaOrdered By: Edison Veronica on 01-20-2023 Glucose [Mass/Vol] 149 mg/dL 70-100 [facility] Comment on above: ADA recommended refe rence rangeRandom Glucose Reference Range is dependent on time and content of last meal. Glucose of more than 200 mg/dL in a nonstressed, ambulatory subject supports the diagnosis of Diabetes Mellitus. Hematocrit Auto (Bld) [Volum e fraction]Ordered By: Edison Veronica on 01-20-2023 Hematocrit (Bld) [Volume fraction] 36.6 % 34.0-46.4 [facility] Hemoglobin [Mass/volume] in BloodOrdered By: Edison Veronica on 01-20-2023 Hemoglobin (Bld) [Mass/Vol] 12.3 g/dL 11.8-15.4 [facility] Ketones Auto test strip (U) [Mass/Vol]Ordered By: Edison Veronica on 01-20-2023 Ketones (U) [Mass/Vol] Negative Negative [facility] Laboratory - UrinalysisOrder ed By: Edison Veronica on 01-20-2023 Hyaline casts LM Ql (Urine sed) None seen [LPF] 0-8 [facility] Leukocytes [#/volume] correc carola for nucleated erythrocytes in Blood by Automated counOrdered By: Edison Veronica on 01-20-2023 WBC corrected for nucl RBC Auto (Bld) [#/Vol] 3.5 10*3/uL 3.8-11.6 [facility] Lymphocytes Auto (Bld) [#/Vo l]Ordered By: Edison Veronica on 01-20-2023 Lymphocytes (Bld) [#/Vol] 1.3 10*3/uL 1.00-4.8 [facility] Lymphocytes/100 WBC Auto (Bl d)Ordered By: Edison Veronica on 01-20-2023 Lymphocytes/100 WBC (Bld) 36.7 % . [facility] MCH Auto (RBC) [Entitic mass ]Ordered By: Edison Veronica on 01-20-2023 MCH (RBC) [Entitic mass] 27.3 pg 24.7-34.3 [facility] MCHC Auto (RBC) [Mass/Vol]Or dered By: Edison Veronica on 01-20-2023 MCHC (RBC) [Mass/Vol] 33.5 g/dL 32.0-35.0 [facility] MCV Auto (RBC) [Entitic vol] Ordered By: Edison Veronica on 01-20-2023 MCV (RBC) [Entitic vol] 81.4 fL 80-100 [facility] Monocytes Auto (Bld) [#/Vol] Ordered By: Edison Veronica on 01-20-2023 Monocytes (Bld) [#/Vol] 0.3 10*3/uL 0.0-0.8 [facility] Monocytes/100 WBC Auto (Bld) Ordered By: Edison Veronica on 01-20-2023 Monocytes/100 WBC (Bld) 7.2 % . [facility] Neutrophils Auto (Bld) [#/Vo l]Ordered By: Edison Veronica on 01-20-2023 Neutrophils (Bld) [#/Vol] 2.0 10*3/uL 1.8-7.7 [facility] Neutrophils/100 WBC Auto (Bl d)Ordered By: Edison Veronica on 01-20-2023 Neutrophils/100 WBC (Bld) 55.1 % . [facility] Nitrite Test strip Ql (U)Ord ered By: Edison Veronica on 01-20-2023 Nitrite Ql (U) Negative Negative [facility] No Panel InformationOrdered By: Edison Veronica on 01-20-2023 Estimated GFR (CKD-EPI) > 60.0 mL/Min [facility] Creatinine Clearance (Chem N/A [facility] Nucleated erythrocytes [Pres ence] in Blood by Automated countOrdered By: Edison Veronica on 01-20-2023 Nucleated RBC Auto Ql (Bld) 0.1 /100{WBC} 0-0.5 [facility] Platelet mean volume Auto (B ld) [Entitic vol]Ordered By: Edison Veronica on 01-20-2023 Platelet mean volume (Bld) [Entitic vol] 8.2 fL 6.3-10.7 [facility] Platelets Auto (Bld) [#/Vol] Ordered By: Edison Veronica on 01-20-2023 Platelets (Bld) [#/Vol] 248 10*3/uL 150-450 [facility] Potassium [Moles/volume] in Serum or PlasmaOrdered By: Edison Veronica on 01-20-2023 Potassium [Moles/Vol] 4.3 mmol/L 3.5-5.1 [facility] Protein Auto test strip (U) [Mass/Vol]Ordered By: Edison Veronica on 01-20-2023 Protein (U) [Mass/Vol] Negative Negative [facility] RBC Auto (Bld) [#/Vol]Ordere d By: Edison Veronica on 01-20-2023 RBC (Bld) [#/Vol] 4.50 10*6/uL 3.60-5.00 [facility] Serum or plasma anion gap de terminationOrdered By: Edison Veronica on 01-20-2023 Anion gap [Moles/Vol] 11.3 mmol/L 6.0-15.0 [facility] Sodium [Moles/volume] in Ser um or PlasmaOrdered By: Edison Veronica on 01-20-2023 Sodium [Moles/Vol] 139 mmol/L 136-145 [facility] Specific gravity Auto test s trip (U) [Rel density]Ordered By: Edison Veronica on 01-20-2023 Specific gravity (U) [Rel density] 1.008 1.001-1.03 0 [facility] Squamous epithelial cells de tection in urine sediment by light microscopyOrdered By: Edison Veronica on 01-20-2023 Epithelial cells.squamous LM Ql (Urine sed) None seen [HPF] 0-2 [facility] Urea nitrogen [Mass/volume] in Serum or PlasmaOrdered By: Edison Veronica on 01-20-2023 Urea nitrogen [Mass/Vol] 16 mg/dL 7-25 [facility] Urine bacteria detection by automated methodOrdered By: Edison Veronica on 01-20-2023 Bacteria Auto Ql (U) None seen None Seen [facility] Urine clarity by refractomet ry automatedOrdered By: Edison Veronica on 01-20-2023 Clarity Refractometry automated (U) Clear Clear [facility] Urine glucose measurement by automated test strip (mass/volume)Ordered By: Edison Veronica on 01-20-2023 Glucose Auto test strip (U) [Mass/Vol] Normal mg/dL Normal [facility] Urine hemoglobin detection b y automated test stripOrdered By: Edison Veronica on 01-20-2023 Hemoglobin Auto test strip Ql (U) Negative Negative [facility] Urine leukocyte esterase det ection by automated test stripOrdered By: Edison Veronica on 01-20-2023 Leukocyte esterase Auto test strip Ql (U) 2+ Negative [facility] Urobilinogen Auto test strip (U) [Mass/Vol]Ordered By: Edison Veronica on 01-20-2023 Urobilinogen (U) [Mass/Vol] Normal mg/dL Normal [facility] WBC Auto (Bld) [#/Vol]Ordere d By: Edison Veronica on 01-20-2023 WBC (Bld) [#/Vol] 3.5 10*3/uL 3.8-11.6 [facility] pH Auto test strip (U)Ordere d By: Edison Veronica on 01-20-2023 pH (U) 6.0 [pH] 5.0-9.0 [facility] Albumin [Mass/volume] in Ser um or Plasma by Bromocresol green (BCG) dye binding methoOrdered By: Edison Veronica on 12-24-2022 Albumin BCG dye [Mass/Vol] 4.5 g/dL 3.5-5.7 [facility] Cotinine [Mass/volume] in Se rum or PlasmaOrdered By: Edison Veronica on 12-24-2022 Cotinine [Mass/Vol] <1.0 ng/mL . [facility] Comment on above: This test was develo ped and its performance characteristicsdetermined by [employer]. It has not been cleared orapproved by the Food and Drug Administration.Cotinine levels greater than 20.0 are consistent with theuse of tobacco or tobacco cessation products.Performed at: [email or web address] [id number] Director: Antonio Dumont MD, Phone: [phone] Glucose mean value [Mass/vol ume] in Blood Estimated from glycated hemoglobinOrdered By: Edison Veronica on 12-24-2022 Average glucose Estimated from glycated hemoglobin (Bld) [Mass/Vol] 111 mg/dL [facility] Hemoglobin A1c percentageOrd ered By: Edison Veronica on 12-24-2022 HbA1c (Bld) [Mass fraction] 5.5 % 4.3-5.6 [facility] Comment on above: Increased risk for d iabetes: 5.7 - 6.4diabetes: >6.4glycemic control for adults with diabetes: <7.0 Hemoglobin [Mass/volume] in BloodOrdered By: Edison Veronica on 12-24-2022 Hemoglobin (Bld) [Mass/Vol] 13.0 g/dL 11.8-15.4 [facility] Nicotine [Mass/volume] in Se rum or PlasmaOrdered By: Edison Veronica on 12-24-2022 Nicotine [Mass/Vol] <1.0 ng/mL . [facility] Comment on above: This test was develo ped and its performance characteristicsdetermined by [employer]. It has not been cleared orapproved by the Food and Drug Administration.Nicotine levels greater than 2.0 are consistent with theuse of tobacco or tobacco cessation products. Vitamin D+Metabolites [Mass/ volume] in Serum or PlasmaOrdered By: Edison Veronica on 12-24-2022 Vitamin D+Metabolites [Mass/Vol] 50.9 ng/mL 30-100 [facility] Comment on above: VITAMIN D STATUS 25( [...] (Unsp spec) No MRSA Isolated 2 Days [facility] MRSA isol Org specific cx Ql (Unsp spec) No MRSA Isolated 2 Days [facility] MG MAMM SCREEN 3D ADALBERTO CADon 09-09-2022 MG MAMM SCREEN 3D ADALBERTO CAD Patient: ANA PALMER Exam Date: 09/09/2022 : 1970 Gender:F Ordering : DR GINA JAVIER . Admission #: [id number] Family : Order #: [id number] CLICK HERE TO VIEW EXAM RADIOLOGY REPORT [...] aml cancer at age 24. LOCATION: [facility] BREAST COMPOSITION: Heterogeneously dense,which may obscure small [...] MD on 09/09/2022 at 12:06 Normal [facility] CBC AUTO DIFFon 07-08-2022 BASO # 0.0 103/ul Normal 0.0-0.1 [facility] Comment on above: Performed By: #### C BC #### [facility] [address] [address] [address] Juliana Brooks Basophils/100 WBC (Bld) 0.9 % Normal 0.2-2.0 [facility] Comment on above: Performed By: #### C BC #### [facility] [address] [place] [address] Dr. Juliana Brooks EO # 0.0 103/ul Normal 0.0-0.7 [facility] Comment on above: Performed By: #### C BC #### [facility] [address] [place] [address] [address] Juliana Brooks Eosinophils/100 WBC (Bld) 0.4 % Critically low 0.9-7.0 [facility] Comment on above: Performed By: #### C BC #### [facility] [address] [place] [address] [address] Juliana Brooks Erythrocyte distribution width (RBC) [Ratio] 16.3 % Critically high 11.0-15.0 [facility] Comment on above: Performed By: #### C BC #### [facility] [address] [place] [address] Dr. Juliana Brooks Hematocrit (Bld) [Volume fraction] 37.3 % Normal 36.0-48.0 [facility] Comment on above: Performed By: #### C BC #### [facility] [address] [place] [address] Dr. Juliana Brooks Hemoglobin (Bld) [Mass/Vol] 11.1 g/dL Critically low 12.0-16.0 [facility] Comment on above: Performed By: #### C BC #### [facility] [address] [place] [address] Dr. Juliana Brooks IG # 0.01 10e3/ul Normal 0.00-0.03 [facility] Comment on above: Performed By: #### C BC #### [facility] [address] [place] [address] Dr. Juliana Brooks IG % 0.2 % Normal 0.0-0.5 [facility] Comment on above: Performed By: #### C BC #### [facility] [address] [place] [address] Dr. Juliana Brooks LYMPH # 1.6 103/ul Normal 1.2-3.8 [facility] Comment on above: Performed By: #### C BC #### [facility] [address] [place] [address] Dr. Juliana Brooks Lymphocytes/100 WBC (Bld) 33.0 % Normal 20.5-60.0 [facility] Comment on above: Performed By: #### C BC #### [facility] [address] [place] [address] Dr. Juliana Brooks MANUAL DIFF REQ NO Normal [facility] Comment on above: Performed By: #### C BC #### [facility] [address] [place] [address] Dr. Juliana Brooks MCH (RBC) [Entitic mass] 23.2 pg Critically low 26.7-34.0 [facility] Comment on above: Performed By: #### C BC #### [facility] [address] [place] [address] Dr. Juliana Brooks MCHC (RBC) [Mass/Vol] 29.8 g/dL Critically low 29.9-35.2 [facility] Comment on above: Performed By: #### C BC #### [facility] [address] [place] [address] Dr. Juliana Brooks MCV (RBC) [Entitic vol] 78.0 fL Critically low 81.0-99.0 [facility] Comment on above: Performed By: #### C BC #### [facility] [address] [address] [address] Juliana Brooks MONO # 0.5 103/ul Normal 0.3-0.8 [facility] Comment on above: Performed By: #### C BC #### [facility] [address] [address] [address] Juliana Brooks Monocytes/100 WBC (Bld) 10.0 % Normal 1.7-12.0 [facility] Comment on above: Performed By: #### C BC #### [facility] [address] [address] [address] Juliana Brooks NEUT # 2.6 103/ul Normal 1.4-6.5 [facility] Comment on above: Performed By: #### C BC #### [facility] [address] [place] [address] Dr. Juliana Brooks Neutrophils/100 WBC (Bld) 55.5 % Normal 43.0-75.0 [facility] Comment on above: Performed By: #### C BC #### [facility] [address] [place] [address] Dr. Juliana Brooks Platelet mean volume (Bld) [Entitic vol] 10.2 fL Normal 9.5-13.5 [facility] Comment on above: Performed By: #### C BC #### [facility] [address] [place] [address] Dr. Juliana Brooks PLT 320 103/ul Normal 150-450 [facility] Comment on above: Performed By: #### C BC #### [facility] [address] [place] [address] Dr. Juliana Brooks RBC 4.78 106/ul Normal 4.20-5.40 [facility] Comment on above: Performed By: #### C BC #### [facility] [address] [place] [address] Dr. Juliana Brooks WBC 4.7 103/ul Normal 4.0-11.0 [facility] Comment on above: Performed By: #### C BC #### [facility] [address] [address] [address] Juliana Brooks FREE THYROXINE INDEX T7on FTI 3.24 Normal 1.30-4.50 [facility] Comment on above: Performed By: #### T 7, TSH, CMP, LIPID #### [facility] [address] [address] [address] Juliana Brooks T3U 36.0 % Normal 30.0-39.0 [facility] Comment on above: Performed By: #### T 7, TSH, CMP, LIPID #### [facility] [address] [address] [address] Juliana Brooks T4 [Mass/Vol] 9.00 ug/dL Normal 4.80-13.90 [facility] Comment on above: Performed By: #### T 7, TSH, CMP, LIPID #### [facility] [address] [place] [address] Dr. Juliana Brooks GLYCOHEMOGLOBIN A1Con 2022 ADA RECOMMENDATION SEE BELOW Normal [facility] Comment on above: Result Comment: ADA RECOMMENDED LIMIT 4.0 - 6.0 ADA THERAPEUTIC TARGET < 7.0 ACTION SUGGESTED > 7.0 Performed By: #### A 1C #### [facility] [address] [place] [address] Dr. Juliana Brooks Glucose [Mass/Vol] 137 mg/dL Normal [facility] Comment on above: Performed By: #### A 1C #### [facility] [address] [place] [address] Dr. Juliana Brooks HbA1c (Bld) [Mass fraction] 6.4 % Critically high 4.5-6.2 [facility] Comment on above: Performed By: #### A 1C #### [facility] [address] [place] [address] Dr. Juliana Brooks IRONon 07-08-2022 Iron [Mass/Vol] 54.0 ug/dL Normal 50.0-170.0 [facility] Comment on above: Performed By: #### I SARAH #### [facility] [address] [place] [address] Dr. Juliana Brooks LIPID PROFILEon 07-08-2022 CHOL-HDL RATIO NORM SEE BELOW Normal [facility] Comment on above: Result Comment: 3.3 - 4.4 LOW RISK 4.4 - 7.1 AVERAGE RISK 7.1 - 11.0 MODERATE RISK >11.0 HIGH RISK Performed By: #### T 7, TSH, CMP, LIPID #### [facility] [address] [address] [address] Juliana Brooks Cholesterol [Mass/Vol] 159 mg/dL Normal <=200 [facility] Comment on above: Performed By: #### T 7, TSH, CMP, LIPID #### [facility] [address] [address] [address] Juliana Brooks Cholesterol in HDL [Mass/Vol] 74 mg/dL Critically high 40-60 [facility] Comment on above: Performed By: #### T 7, TSH, CMP, LIPID #### [facility] [address] [address] [address] Juliana Brooks Cholesterol in LDL [Mass/Vol] 74.4 mg/dL Normal [facility] Comment on above: Performed By: #### T 7, TSH, CMP, LIPID #### [facility] [address] [address] [address] Juliana Brooks Cholesterol.total/Cho lesterol in HDL [Mass ratio] 2.1 {ratio} Normal [facility] Comment on above: Performed By: #### T 7, TSH, CMP, LIPID #### [facility] [address] [address] [address] Juliana Brooks HDL NORMAL > or = 60 mg/dl - LO W CARDIOVASCULAR RISK <40 mg/dl - HIGH CARDIOVASCULAR RISK Normal [facility] Comment on above: Performed By: #### T 7, TSH, CMP, LIPID #### [facility] [address] [address] [address] Juliana Brooks LDL CALC NORMAL SEE BELOW Normal [facility] Comment on above: Result Comment: <100 mg/dl OPTIMAL 100 - 129 mg/dl NEAR OR ABOVE OPTIMAL 130 - 159 mg/dl BORDERLINE HIGH 160 - 189 mg/dl HIGH >190 mg/dl VERY HIGH Performed By: #### T 7, TSH, CMP, LIPID #### [facility] [address] [address] [address] Juliana Brooks Triglyceride [Mass/Vol] 53 mg/dL Normal <=150 [facility] Comment on above: Performed By: #### T 7, TSH, CMP, LIPID #### [facility] [address] [address] [address] Juliana Brooks VLDL CALC 10.6 mg/dL Normal [facility] Comment on above: Performed By: #### T 7, TSH, CMP, LIPID #### [facility] [address] [place] [address] Dr. Juliana Brooks PROF 14(COMP METB)on 023 Albumin [Mass/Vol] 3.6 g/dL Normal 3.4-5.0 [facility] Comment on above: Performed By: #### T 7, TSH, CMP, LIPID #### [facility] [address] [place] [address] Dr. Juliana Brooks Albumin/Globulin [Mass ratio] 1.1 {ratio} Normal [facility] Comment on above: Performed By: #### T 7, TSH, CMP, LIPID #### [facility] [address] [place] [address] Dr. Juliana Brooks ALP [Catalytic activity/Vol] 107 U/L Normal 46-116 [facility] Comment on above: Performed By: #### T 7, TSH, CMP, LIPID #### [facility] [address] [place] [address] Dr. Juliana Brooks ALT [Catalytic activity/Vol] 26 U/L Normal 14-59 [facility] Comment on above: Performed By: #### T 7, TSH, CMP, LIPID #### [facility] [address] [place] [address] Dr. Juliana Brooks Anion gap [Moles/Vol] 11.1 mmol/L Normal [facility] Comment on above: Performed By: #### T 7, TSH, CMP, LIPID #### [facility] [address] [place] [address] Dr. Juliana Brooks AST [Catalytic activity/Vol] 19 U/L Normal 15-37 [facility] Comment on above: Performed By: #### T 7, TSH, CMP, LIPID #### [facility] [address] [address] [address] Juliana Brooks Bilirubin [Mass/Vol] 0.3 mg/dL Normal 0.2-1.0 [facility] Comment on above: Performed By: #### T 7, TSH, CMP, LIPID #### [facility] [address] [address] [address] Juliana Brooks Calcium [Mass/Vol] 9.2 mg/dL Normal 8.5-10.1 [facility] Comment on above: Performed By: #### T 7, TSH, CMP, LIPID #### [facility] [address] [place] [address] Dr. Juliana Brooks Chloride [Moles/Vol] 106 mmol/L Normal 98-107 [facility] Comment on above: Performed By: #### T 7, TSH, CMP, LIPID #### [facility] [address] [place] [address] Dr. Juliaan Brooks CO2 [Moles/Vol] 28.3 mmol/L Normal 21.0-32.0 [facility] Comment on above: Performed By: #### T 7, TSH, CMP, LIPID #### [facility] [address] [place] [address] Dr. Juliana Brooks Creatinine [Mass/Vol] 0.60 mg/dL Normal 0.55-1.02 [facility] Comment on above: Performed By: #### T 7, TSH, CMP, LIPID #### [facility] [address] [place] [address] Dr. Juliana Brooks EGFR-AF MAURITANIAN >60 Normal >=60 [facility] Comment on above: Performed By: #### T 7, TSH, CMP, LIPID #### [facility] [address] [place] [address] Dr. Juliana Brooks EGFR-NON AF MAURITANIAN >60 Normal >=60 [facility] Comment on above: Performed By: #### T 7, TSH, CMP, LIPID #### [facility] [address] [address] [address] Juliana Brooks Globulin (S) [Mass/Vol] 3.4 g/dL Normal [facility] Comment on above: Performed By: #### T 7, TSH, CMP, LIPID #### [facility] [address] [address] [address] Juliana Brooks Glucose [Mass/Vol] 104 mg/dL Normal 74-106 [facility] Comment on above: Performed By: #### T 7, TSH, CMP, LIPID #### [facility] [address] [address] [address] Juliana Brooks Potassium [Moles/Vol] 4.4 mmol/L Normal 3.5-5.1 [facility] Comment on above: Performed By: #### T 7, TSH, CMP, LIPID #### [facility] [address] [place] [address] Dr. Juliana Brooks Protein [Mass/Vol] 7.0 g/dL Normal 6.4-8.2 [facility] Comment on above: Performed By: #### T 7, TSH, CMP, LIPID #### [facility] [address] [address] [address] Juliana Brooks Sodium [Moles/Vol] 141 mmol/L Normal 136-145 [facility] Comment on above: Performed By: #### T 7, TSH, CMP, LIPID #### [facility] [address] [address] [address] Juliana Brooks Urea nitrogen [Mass/Vol] 11.0 mg/dL Normal 7.0-18.0 [facility] Comment on above: Performed By: #### T 7, TSH, CMP, LIPID #### [facility] [address] [place] [address] Dr. Juliana Brooks Urea nitrogen/Creatinine [Mass ratio] 18.3 mg/mg Normal [facility] Comment on above: Performed By: #### T 7, TSH, CMP, LIPID #### [facility] [address] [address] [address] Juliana Brooks TSHon 07-08-2022 TSH Qn m[IU]/L Critically low 0.358-3.74 0 [facility] Comment on above: Performed By: #### T 7, TSH, CMP, LIPID #### [facility] [address] [address] [address] Juliana Brooks MRI LSPINE WO CONon [...] by: IRENE AGUILERA Date: 2021-12-24 16:08 Normal [facility] XR LSPINE MIN 4 VIEWSon 11-16 [...] by: ALE GERBER Date: 2021-11-26 18:41 Normal [facility] Ambulatory Visit Summaryon 0 07-24-2021 Ambulatory [...] Reducible right inguinal hernia Sleep apnea Normal [facility] General Surgery Office/Clini c Noteon 07-24-2021 General [...] inactivated - Not Given Patient Refuses Normal [facility] Comment on above: Result Comment: Elec tronically [...] [place] Where: General Surgery Nill/Said Fatemeh [facility] General Surgery Office/Clini c Noteon 07-10-2021 [...] - Not Given Patient Refuses Normal [facility] Comment on above: Result Comment: Elec tronically Signed By: KHANG BARTH, Jerry [place]\.br\Date and Time Signed: 07/10/21 14:23 EDT Operative Reporton Operative Report [id number]:127 [facility] Lab Reportson 06-29-2021 Lab Reports [id number]#[id number]:127 [facility] ECG 12-Leadon 06-24-2021 ECG 12-Lead [id number]#[id number]:127 [facility] Pre-Certification Formon Pre-Certification Form [id number]#1.00CD:127 [facility] RAD - CT Reporton 06-14-2021 RAD - CT Report [id number]#[id number]:127 [facility] Consent for Procedure/Surger yon 06-11-2021 Consent for Procedure/Surgery [id number]#1.00CD:127 [facility] Ambulatory Visit Summaryon 0 06-10-2021 Ambulatory Visit [...] Radiculopathy of cervical spine Sleep apnea Normal [facility] Physician Referralon 022 Physician Referral [id number]:127 Normal [facility] FLUORO FOR SURGICAL PROCEDUR ESOrdered By: Mejia Griffin on 11-18-2020 Jamie, Efraín Incoming R adiant Results From [employer] - 11/18/2020 2:23 PM EDT EXAMINATION: FLUORO FOR SURGICAL PROCEDURES CLINICAL HISTORY: R52 Pain ICD10 COMPARISONS: None available. FINDINGS: Fluoroscopic assistance was provided during ACDF, C5-6 and C6-7 The total radiation time is 31.9 seconds, radiation dose is 3.62mGy. IMPRESSION: Intraprocedural fluoroscopic support has been provided. Please refer to the procedure report. [employer] Work Phone: [employer] Work Phone: Surgical Specimenon 11-19-19 21 Surgical Specimen [facility] [address] [place], [place] [id number] FINAL SURGICAL PATHOLOGY REPORT Patient Name: ANA PALMER Accession No: [id number] Age Sex: 1970 Location: [facility] [id number] Account No: [id number] Collected: 11/18/2020 [facility] Rec No: [id number] Received: 11/18/2020 Attend Phys: MEJIA GRIFFIN Completed: [...] in three cassettes following decalcification. RAFY/JOELLE CPT: 01896 X1 24730 X1 JERAMIE ERVIN M.D. 11/20/2020 Electronically signed out by Page 1 of 1 Invalid Interpretation Code [facility] Comment on above: Performed By: #### S UR #### [facility] [address] [place] [id number] COVID-19, PCRon 11-08-2020 SARS-CoV-2 (COVID-19) RNA AISHA+probe Ql (Unsp spec) Not detected Normal Not Detect [facility] Comment on above: Result Comment: Test ing was performed using [employer] SARS-CoV-2 Assay. Negative results do not preclude [...] oropharyngeal and mid-turbinate specimens. Patient Fact Sheet: https://www.fda.gov/media/011843/download Provider Fact Sheet: https://www.fda.gov/media/698407/download FDA Specimen Types Link: https://www.fda.gov/medical-devices/ jsegotbpzbx-tfidt-12-kgb-knseicr-huxzhfm/giou-tvklwae-nvlv-cov-2 Methodology: RT-PCR Performed By: #### C OVB #### [facility] [address] [place] [address] CBC With Platelet No Differe ntialon 11-07-2020 Erythrocyte distribution width (RBC) [Ratio] 15.8 % Critically high 11.5-14.5 [facility] Comment on above: Performed By: #### C BCND #### [facility] [address] [place] [address] Hematocrit (Bld) [Volume fraction] 37.5 % Normal 37.0-47.0 [facility] Comment on above: Performed By: #### C BCND #### [facility] [address] [place] [address] Hemoglobin (Bld) [Mass/Vol] 12.1 g/dL Normal 12.0-16.0 [facility] Comment on above: Performed By: #### C BCND #### [facility] [address] [place] [address] MCH (RBC) [Entitic mass] 26.2 pg Low 27.0-31.3 [facility] Comment on above: Performed By: #### C BCND #### [facility] [address] [place] [address] MCHC 32.3 % Low 33.0-37.0 [facility] Comment on above: Performed By: #### C BCND #### [facility] [address] [place] [address] MCV (RBC) [Entitic vol] 81.3 fL Low 82.0-100.0 [facility] Comment on above: Performed By: #### C BCND #### [facility] [address] [place] [address] Platelets (Bld) [#/Vol] 301 10*3/uL Normal 130-400 [facility] Comment on above: Performed By: #### C BCND #### [facility] [address] [place] [address] RBC (Bld) [#/Vol] 4.61 10*6/uL Normal 4.20-5.40 [facility] Comment on above: Performed By: #### C BCND #### [facility] [address] [place] [address] WBC (Bld) [#/Vol] 3.7 10*3/uL Low 4.8-10.8 [facility] Comment on above: Performed By: #### C BCND #### [facility] [address] [place] [address] Partial Thromboplastin Timeo n 11-07-2020 aPTT Coag (Bld) [Time] 28.0 s Normal 24.4-36.8 [facility] Comment on above: Result Comment: Effe ctive 02/20/2020: Heparin Therapeutic Range: 64.0 ? 98.0 seconds. Performed By: #### P TT #### [facility] [address] [place] [address] Prothrombin Timeon INR Coag (PPP) [Relative time] 1.0 {INR} Normal [facility] Comment on above: Performed By: #### P T #### [facility] [address] [place] [address] PT Coag (PPP) [Time] 13.3 s Normal 12.3-14.9 [facility] Comment on above: Performed By: #### P T #### [facility] [address] [place] [address] Type and Screen Capture 3 sc rn cellon 11-07-2020 Type and Screen Capture 3 scrn cell PATIENT: ESTELA PEREZ LOC: [facility] BILL# : [id number] : 1970 SEX: F ORDERED BY: TIM CASTILLO ORDERED : 11/07/2020 13:32 COLLECTED: 11/07/2020 13:32 ORDER : [id number] RECEIVED : 11/07/2020 19:33 TEST NAME RESULT UNITS RANGES ABN FL ST ABORH Capture O POS F Antibody 3 Cell Scrn Captu NEG F Normal [facility] Comment on above: Performed By: #### T S3C #### [facility] [address] [place] [address] MRI CERVICAL SPINE WO CONTRA STOrdered By: [...] gland, may consider dedicated thyroid ultrasound imaging. [facility] [employer] Work Phone: EXAMINATION: MRI CER VICAL SPINE [...] hypertrophy with mild left neural foraminal narrowing. [employer] Work Phone: Jamie, Chpo Incoming R adiant Results From [employer] - 09/10/2020 12:02 PM EDT EXAMINATION: MRI [...] gland, may consider dedicated thyroid ultrasound imaging. [employer] Phone: [employer] Phone: MRI CERVICAL SPINE WO CONTRA STon [...] Leandro Spaulding MD 09/10/20 Final result Normal [facility] COVID-19, NAAon 09-04-2020 SARS-CoV-2 (COVID-19) RNA AISHA+probe Ql (Unsp spec) Not detected Normal Not Detect [facility] Comment on above: Result Comment: This nucleic acid amplification test was developed and its performance characteristics determined by [employer]. Nucleic acid amplification tests include RT-PCR and [...] result in this assay. Performed at: [address] [id number] Certified Composites Technician: Lane Rivera PhD, Phone: [phone] Performed By: #### I RCOV #### [facility] [address] [place] [id number] COVID-19, NAAon 09-02-2020 Source Swab Anterior nares Normal [facility] Comment on above: Performed By: #### I RCOV #### [facility] [address] [place] [id number] Vital Signs Date Time Vital Sign Value Performing Clinician Facility 05-30-2024 15:46-0500 Body mass index (BMI) [Ratio] 31.18 kg/m2 Ze Viviane DO Work Phone: [facility] 05-30-2024 15:46-0500 Body weight 79.83 kg Ze Viviane DO Work Phone: [facility] 05-30-2024 15:46-0500 Diastolic blood pressure 78 mm[Hg] Ze Viviane DO Work Phone: [facility] 05-30-2024 15:46-0500 Systolic blood pressure 122 mm[Hg] Ze Viviane DO Work Phone: [facility] 02-16-2023 15:45-0400 Body height 162.56 cm Edison Sutter II Other [facility] Other 02-16-2023 15:45-0400 Body mass index (BMI) [Ratio] 25.4 kg/m2 Edison Sutter II Other [facility] Other 02-16-2023 15:45-0400 Body weight 67.13 kg Edison Sutter II Other [facility] Other 01-31-2023 18:30-0400 Diastolic blood pressure 78 mm[Hg] MD Gina Javier Work Phone: [facility] 01-31-2023 18:30-0400 Heart rate 98 /min MD Gina Javier Work Phone: [facility] 01-31-2023 18:30-0400 Respiratory rate 16 /min MD Gina Javier Work Phone: [facility] 01-31-2023 18:30-0400 SaO2% (BldA) [Mass fraction] 96 % MD Gina Javier Work Phone: [facility] 01-31-2023 18:30-0400 Systolic blood pressure 116 mm[Hg] MD Gina Javier Work Phone: [facility] 01-31-2023 16:45-0400 Body temperature 98 [degF] MD Gina Javier Work Phone: [facility] 01-31-2023 16:15-0400 Inhaled oxygen flow rate 10 L/min MD Gina Javier Work Phone: [facility] 01-31-2023 12:49-0400 Body height 160.02 cm MD Gina Javier Work Phone: [facility] 01-31-2023 12:49-0400 Body mass index (BMI) [Ratio] 26.5 kg/m2 MD Gina Javier Work Phone: [facility] 01-31-2023 12:49-0400 Body weight 68 kg MD Gina Javier Work Phone: [facility] 01-27-2023 15:30-0400 Body height 162.56 cm Edison Veronica II Other [facility] Other 01-27-2023 15:30-0400 Body mass index (BMI) [Ratio] 25.44 kg/m2 Edison Veronica II Other [facility] Other 01-27-2023 15:30-0400 Body weight 67.22 kg Edison Veronica II Other [facility] Other 07-05-2022 12:15-0400 Body height 162.56 cm Sawyer Greer Other [facility] Other 01-26-2022 10:40-0400 Body height 162.56 cm Santiago Cano Other [facility] Other 01-26-2022 10:40-0400 Body mass index (BMI) [Ratio] 36.9 kg/m2 Santiago Cano Other [facility] Other 01-26-2022 10:40-0400 Body weight 97.52 kg Santiago Cano Other [facility] Other 07-24-2021 13:31-0400 Body temperature 97.88 [degF] Jerry QUIÑONEZ [facility] [place] 07-10-2021 14:00-0400 Body temperature 97.34 [degF] Jerry QUIÑONEZ [facility] [place] 11-19-2020 08:27-0400 Body temperature 98.1 [degF] Mejia Griffin MD Work Phone: [employer] Work Phone: 11-19-2020 08:27-0400 Diastolic blood pressure 78 mm[Hg] Mejia Griffin MD Work Phone: [employer] Work Phone: 11-19-2020 08:27-0400 Heart rate 109 /min Mejia Griffin MD Work Phone: [employer] Phone: 11-19-2020 08:27-0400 SaO2% (BldA) [Mass fraction] 98 % Mejia Griffin MD Work Phone: [employer] Work Phone: 11-19-2020 08:27-0400 Systolic blood pressure 118 mm[Hg] Mejia Griffin MD Work Phone: [employer] Work Phone: 11-19-2020 04:29-0400 Respiratory rate 18 /min Mejia Griffin MD Work Phone: [employer] Work Phone: 11-18-2020 08:30-0400 Body height 162.6 cm Mejia Griffin MD Work Phone: [employer] Work Phone: 11-18-2020 08:30-0400 Body mass index (BMI) [Ratio] 34.84 kg/m2 Mejia Griffin MD Work Phone: [employer] Work Phone: 11-18-2020 08:30-0400 Body weight 92.08 kg Mejia Griffin MD Work Phone: [employer] Work Phone: 09-09-2020 14:57-0400 Diastolic blood pressure 75 mm[Hg] Lindsay 2 [employer] Work Phone: 09-09-2020 14:57-0400 Heart rate 93 /min Lindsay 2 [employer] Work Phone: 09-09-2020 14:57-0400 Respiratory rate 16 /min Lindsay 2 [employer] Work Phone: 09-09-2020 14:57-0400 Systolic blood pressure 169 mm[Hg] Lindsay 2 [employer] Work Phone: 09-09-2020 12:41-0400 Body height 162.6 cm Lindsay 2 [facility] Work Phone: 09-09-2020 12:41-0400 Body mass index (BMI) [Ratio] 34.67 kg/m2 [address] [address] [employer] Phone: 09-09-2020 12:41-0400 Body weight 91.63 kg Lindsay [facility] Phone: 09-09-2020 12:41-0400 SaO2% (BldA) [Mass fraction] 99 % [address] [place] [address] [facility] [employer] Phone: Encounters Encounter Date Encounter Type Care Provider Facility Start: 05-30-2024 End: 05-30-2024 Office outpatient visit 15 minutes Ze Viviane DO Work Phone: [facility] Comment on above: Dyspareunia [...] 02-02-2024 ambulatory MD Gina Javier Work Phone: [facility] Work Phone: Start: 02-02-2024 End: 02-02-2024 Patient encounter procedure MD Gina Javier Work Phone: [facility] Work Phone: Start: 04-20-2023 Office outpatient vi sit 15 minutes Edison Veronica II [facility] Start: 04-20-2023 End: 04-20-2023 Patient encounter procedure MD Gina Javier Work Phone: [facility] Start: 04-20-2023 End: 04-20-2023 ambulatory MD Gina Javier Work Phone: [facility] Work Phone: Start: 03-17-2023 End: 03-17-2023 Patient encounter procedure MD Gina Javier Work Phone: [facility] Start: 03-17-2023 End: 03-17-2023 ambulatory MD Gina Javier Work Phone: [facility] Work Phone: Start: 03-03-2023 (Post-Op) Post-Op Edison Sutter II [facility] Start: 03-03-2023 End: 03-03-2023 ambulatory Edison Jeremías II Other [facility] Other Start: 02-16-2023 (Post-Op) Post-Op Edison Sutter II [facility] Start: 02-16-2023 End: 02-16-2023 ambulatory Edison Sutter II Other [facility] Other Start: 02-10-2023 (Post-Op) Post-Op Edison Jeremías II [facility] Start: 02-10-2023 End: 02-10-2023 ambulatory Edison Sutter II Other [facility] Other Start: 02-09-2023 End: 02-09-2023 ambulatory Edison Sutter II Other [facility] Other Start: 02-09-2023 Telephone encounter Edison Sutter II [facility] Start: 01-31-2023 End: 01-31-2023 Admission to same day surgery center MD Gina Javier Work Phone: [facility] [place] Start: 01-31-2023 End: 01-31-2023 ambulatory MD Gina Javier Work Phone: [facility] Work Phone: Start: 01-27-2023 End: 01-27-2023 Discharged Recurring MD Gina Javier Work Phone: [facility] [place] Start: 01-27-2023 End: 01-27-2023 ambulatory MD Gina Javier Work Phone: [facility] Other Start: 01-27-2023 Patient encounter procedure Edison Sutter II [facility] Start: 01-21-2023 (Prolonged) Prolonge d Services Edison Sutter II [facility] Start: 01-21-2023 End: 01-21-2023 ambulatory Edison Sutter II Other [facility] Other Start: 01-20-2023 End: 01-20-2023 ambulatory MD Gina Javier Work Phone: [facility] Work Phone: Start: 01-20-2023 End: 01-20-2023 Patient encounter procedure MD Gina Javier Work Phone: [facility] Work Phone: Start: 12-24-2022 End: 12-24-2022 ambulatory MD Gina Javier Work Phone: [facility] Work Phone: Start: 12-24-2022 End: 12-24-2022 Patient encounter procedure MD Gina Javier Work Phone: [facility] Start: 12-24-2022 End: 12-24-2022 ambulatory MD Gina Javier Work Phone: [facility] Work Phone: Start: 12-24-2022 End: 12-24-2022 Patient encounter procedure MD Gina Javier Work Phone: [facility] Start: 12-16-2022 End: 12-16-2022 ambulatory Sawyer Greer Other [facility] Other Start: 12-16-2022 Office outpatient vi sit 25 minutes Sawyer Greer [facility] [place] Start: 12-16-2022 Telephone encounter Sawyer Greer [facility] [place] Start: 09-09-2022 End: 09-10-[address] GINA JAVIER . Facility: Start: 08-24-2022 End: 08-24-2022 Patient encounter procedure MD Gina Javier Work Phone: [facility] Start: 08-24-2022 End: 08-24-2022 ambulatory MD Gina Javier Work Phone: [facility] Work Phone: Start: 08-24-2022 Office outpatient vi sit 25 minutes Sawyer Greer [facility] [place] Start: 08-16-2022 (Procedure) Tulio Greer [facility] Start: 08-16-2022 End: 08-16-2022 ambulatory Sawyer Greer Other [facility] Other Start: 08-04-2022 End: 08-04-2022 ambulatory Sawyer Barromana Other [facility] Other Start: 08-04-2022 Office outpatient vi sit 25 minutes Sawyer Greer [facility] [place] Start: 07-11-2022 Encounter for genera l adult medical examination without abnormal findings DR GINA JAVIER . [facility] Start: 07-08-2022 End: 07-09-[address] GINA JAVIER . Facility:[facility]1 Start: 07-08-2022 End: 07-09-2022 Encounter for general adult medical examination without abnormal findings DR GINA JAVIER . Facility:[facility]1 Start: 07-05-2022 End: 07-05-2022 ambulatory Sawyer Greer Other [facility] Other Start: 07-05-2022 Office outpatient vi sit 25 minutes Sawyer Greer [facility] [place] Start: 04-19-[address] GINA JAVIER . Facili ty:[facility]1 Start: 02-23-2022 End: 02-23-2022 ambulatory Sawyer Greer Other [facility] Other Start: 02-23-2022 Office outpatient vi sit 15 minutes Sawyer Greer [facility] [place] Start: 02-15-2022 (Procedure) Short Sawyer Greer [facility] Start: 02-15-2022 End: 02-15-2022 ambulatory Sawyer Greer Other [facility] Other Start: 02-01-2022 End: 02-01-2022 ambulatory Sawyer Greer Other [facility] Other Start: 02-01-2022 Office outpatient ne w 45 minutes Sawyer Greer [facility] [place] Start: 02-01-2022 Telephone encounter Sawyer Greer [facility] [employer] Start: 01-26-2022 End: 01-26-2022 ambulatory Santiago Cano Other [facility] Other Start: 01-26-2022 Office outpatient ne w 45 minutes Santiago PLATT [facility] Neurosurgery Start: 12-24-2021 End: 12-25-[address] GINA JAVIER . Facility:[facility]1 Start: 11-26-2021 End: 11-27-[address] GINA JAVIER . Facility:[facility] Start: 07-24-2021 End: 07-24-2021 Patient encounter procedure Jerry Randolph NILL General Surgery [facility]ill[facility] [place] Start: 07-10-2021 End: 07-10-2021 Patient encounter procedure Jerry Randolph NILL General Surgery Nill/[facility] [place] Start: 11-18-2020 End: 11-19-2020 Evaluation and management of inpatient [facility] Start: 11-18-2020 End: 11-21-2020 ambulatory MEJIA GRIFFIN [facility] Start: 11-18-2020 End: 11-19-2020 Evaluation and management of inpatient Mejia Griffin MD Work Phone: [facility] Comment on above: Post-op pain (Primar y Dx); Pain; Muscle spasm Start: 11-18-2020 End: 11-20-2020 Subsequent hospital visit by physician Mejia Griffin MD Work Phone: [facility] Radiology Comment on above: Pain Start: 09-09-2020 End: 09-12-2020 ambulatory [facility] Start: 09-09-2020 End: 09-11-2020 Subsequent hospital visit by physician Andres Mri Room 2 [facility] MRI Comment on above: Cervical spondylosis [...] 07-01-2021 Repair of right ingu inal hernia eJrry QUIÑONEZ Start: 11-19-2020 Excision of cervical intervertebral [...] [facility] [place] [id number] Ze Pan, DO [address] [address] [facility] Start: 05-30-2024 End: 05-30-2024 Patient encounter procedure 05/30/2024 3:20 PM EST Office Visit [facility] [address] [facility] [place] [id number] Ze Pan, DO [address] [address] Arrived [facility] Comment on above: Arrived Start: 03-13-2024 End: 03-13-2025 DXA Skeletal system Views for bone density DEXA bone density Imaging Routine Well woman exam with routine gynecological exam Asymptomatic menopausal state Expected: 03/13/2024 (Approximate), Expires: 03/13/2025 [facility] Comment on above: Expected: 03/13/2024 (Approximate), Expires: 03/13/2025 Start: 03-13-2024 End: 05-13-2025 MG Breast - bilateral Screening Bilateral screening mammogram Imaging Routine Well woman exam with routine gynecological exam Encounter for screening mammogram for malignant neoplasm of breast Expected: 03/13/2024, Expires: 05/13/2025 [facility] Work Phone: Comment on above: Expected: 03/13/2024 , Expires: 05/13/2025 Start: 02-02-2024 Plain X-ray of left hip XR hip LT min 2V(w/wo pelvis)* [facility] Start: 02-02-2024 XR Hip - left 2 Views [facility] Start: 01-31-2023 [facility] Start: 01-31-2023 [facility] Start: 01-31-2023 Physical therapy procedure [facility] Start: 01-20-2023 [facility] Start: 12-24-2022 MRSA Culture MRSA Culture [facility] Start: 12-17-2020 Influenza vaccination [facility] [employer] Work Phone: Start: 12-05-2020 End: 12-05-2020 Patient encounter procedure 12/05/2020 Office Visit Neurosurgery Mejia Griffin MD [address] [facility] [address] [place], [place] [id number] [facility] Start: 09-19-2020 End: 09-19-2020 Patient encounter procedure 09/19/2020 Office Visit Neurosurgery Mejia Griffin MD [address] [facility] [address] [place], [place] [id number] [facility] Neurosurgery Start: 12-13-2019 Screening for malign ant neoplasm of breast Breast cancer screen [facility] Phone: Start: 12-13-2019 Screening for malign ant neoplasm of colon Colon cancer screen colonoscopy [facility] [employer] Phone: Start: 12-13-2019 Shingles Vaccine (1 of 2) Shingles Vaccine (1 of 2) [facility] [employer] Phone: Start: 2014 Screening for malign ant neoplasm of colon Colon cancer screen colonoscopy [facility] [employer] Phone: Start: 2009 Diabetes screen Diabetes screen [facility] [employer] Phone: Start: 1990 Screening for malign ant neoplasm of cervix Cervical cancer screen [facility] Phone: Start: 1988 DTaP/Tdap/Td vaccine (1 - Tdap) DTaP/Tdap/Td vaccine (1 - Tdap) [facility] Phone: Start: 1984 HIV screening HIV screen [facility] Work Phone: Start: 1981 COVID-19 Vaccine (1) COVID-19 Vaccin e (1) [facility] [employer] Phone: Start: 12-13-1979 Lipid panel Lipid screen [facility] Work Phone: Start: 1969 Creatinine measurement Creatinine mo nitoring [facility] Phone: Start: 1969 Hepatitis C screening Hepatitis C sc reen [facility] Phone: Start: 1969 Potassium monitoring Potassium monit oring [facility] Phone: Continuous pulse oximetry Pulse oximetry, continuous Respiratory Care Routine Every 4hr until discontinued starting 11/18/2020 [facility] Phone: Comment on above: Every 4hr until disc ontinued starting 11/18/2020 Cotinine [Mass/volum e] in Serum or Plasma [facility] End: 11-18-2020 Fluoroscopy during operation FLUORO FOR SURGICAL PROCEDURES Imaging Routine Pain Once for 1 Occurrences starting 11/18/2020 until 11/18/2020 [facility] Phone: Comment on above: Once for 1 Occurrenc es starting 11/18/2020 until 11/18/2020 Fluoroscopy during operation FLUORO FOR SURGICAL PROCEDURES Imaging Routine Pain 11/18/2020 1:30 PM EDT [facility] Phone: Glucose measurement estimated from glycated hemoglobin [facility] Methicillin resistan t Staphylococcus aureus [Presence] in Unspecified specimen by Organism specific culture [facility] Nicotine [Mass/volum e] in Serum or Plasma [facility] Oxygen therapy [Mini [facility] Data Set] [facility] Phone: Comment on above: Daily until disconti nued starting 09/09/2020 Daily until disconti nued starting 11/18/2020 Phase I & II - meter ed glucose Phase I & II - metered glucose Point of Care Testing Routine As Needed until discontinued starting 09/09/2020 [facility] Phone: Comment on above: As Needed until disc ontinued starting 09/09/2020 Spirometry panel Incentive joaquín metry Respiratory Care Routine Every 2hr while awake until discontinued starting 09/09/2020 [facility] Phone: Comment on above: Every 2hr while awak e until discontinued starting 09/09/2020 Surgical Pathology [facility] Work Phone: Comment on above: Release Upon Orderin g for 1 Occurrences starting 11/18/2020 End: 11-18-2020 Surgical Pathology Surgical Pathology Lab Routine Once for 1 Occurrences starting 11/18/2020 until 11/18/2020 [facility] Work Phone: Comment on above: Once for 1 Occurrenc es starting 11/18/2020 until 11/18/2020 THIN PREP TIS PAP AN D HR HPV DNA THIN PREP TIS PAP AND HR HPV DNA Pathology and Cytology Routine Well woman exam with routine gynecological exam Ordered: 03/13/2024 [facility] Comment on above: Ordered: 03/13/2024 [facility] Immunizations Immunization Date Immunization Notes Care Provider Fa cility NEGATED: Highlighted row has not occurred!06-10-2021 influenza virus vaccine, unspecified formulation Jerry QUIÑONEZ General [facility] [place] Payers Date Payer Category Payer Self-pay [id number] 2021 [facility] [id number] 2020 Private Health Insurance [id number] 2020 Private Health Insurance [id number] 1969 Unknown [id number] [id number]. 2.182 1969 Unknown [id number] 2.16.840.1.386282.3.579. 2.182 1969 Unknown [id number] 2.16.840.1.039650.3.579. 2.182 1969 Unknown [id number] 2.16.840.1.384961.3.579. 2.593 1969 Unknown [id number] 2.16.840.1.768401.3.579. 2.593 1969 Unknown [id number] 2.16.840.1.342733.3.579. 2.593 1969 Unknown [id number] 2.16.840.1.171176.3.579. 2.593 1970 Unknown [id number] [id number]. 2.[address] [facility] [id number] 1960 [facility] [id number] [facility] [id number] Private Health Insurance [employer] [id number] Unknown [id number] [id number]. 2.531 Unknown [id number] [id number]. 2.531 Unknown [id number]. 2.531 Social History Date Type Detail Facility Start: 09-02-2020 End: 01-31-2023 Tobacco smoking status NHIS Never smoker [facility] Phone: Start: 09-02-2020 End: 11-20-2020 Tobacco use and exposure Never used [employer] Start: 1970 Sex Assigned At Not on file [facility] [employer] Phone: Start: 11-07-2020 History 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 5 [facility] Phone: Start: 11-07-2020 History SDOH Food Worry 1 [facility] Phone: Start: 1970 Sex Assigned At Female [employer] Phone: Exposure to SARS-CoV -2 (event) Not sure [facility] Tobacco smoking status Never Gener al Surgery [place] Sex Assigned At Female Genera l Surgery [facility] Tobacco smoking stat [facility] Tobacco smoking consumption unknown [facility] Medical Equipment Procedure Code Equipment Code Equipment Original Text Equipment Identifier Dates Arthroplasty, hip, total, anterior approach Acetabular shell [id number] FDA Start: 01-31-2023 Arthroplasty, hip, total, anterior approach Orthopaedic bone screw, non-bioabsorbable, sterile [id number] FDA Start: 01-31-2023 Arthroplasty, hip, total, anterior approach Orthopaedic bone screw, non-bioabsorbable, sterile ()[id number] FDA Start: 01-31-2023 Arthroplasty, hip, total, anterior approach Ceramic femoral head prosthesis ()[id number] FDA Start: 01-31-2023 Arthroplasty, hip, total, anterior approach Coated hip femur prosthesis, modular ()[id number] FDA Start: 01-31-2023 Arthroplasty, hip, total, anterior approach Non-constrained polyethylene acetabular liner ()[id number] [facility] Start: 01-31-2023 Cage Spnl W11xh8 xl14mm Lum Lord Intbdy Fus Triad Cc - [id number] Start: 11-18-2020 Graft Spnl W11xh 1nv74af Corticocancellous Lord Triad - [id number] Start: 11-18-2020 Screw Spnl L7mm Dia2.6mm Lum Lat Mass Leverage Lfs [id number] Start: 11-18-2020 Plate Spnl L42mm Ant Cerv 2 Lev Translational [place] [facility]p [id number] Start: 11-18-2020 Screw Spnl L13mm Dia4mm Ant Cerv St Melanie Ang Compr [place] [facility]p [id number] Start: 11-18-2020 Screw Spnl L5mm [...] nursing note reviewed. Exam conducted with a natural resource technician present. Vitals: Estimated body mass index is [...] Ze Pan DO documented in this encounter [facility] 03-13-2024 History of Presen t illness [...] nursing note reviewed. Exam conducted with a natural resource technician present. Vitals: Estimated body mass index is [...] Ze Pan DO documented in this encounter [facility] 04-20-2023 Evaluation note Encounter Date Diagnosis Assessment Notes Apr, S/P total left hip arthroplasty (ICD-10 - Z96.642) Apr, Aftercare following joint replacement surgery (ICD-10 - Z47.1) Apr, Presence of left artificial hip joint (ICD-10 - Z96.642) Apr, Other [facility] on 01/31/2023 Overall she is doing great. [...] to call with any questions or concerns. [facility] Other 11-16-2023 Evaluation note* Encounter Date Diagnosis [...] weeks with x-rays of the left hip. [facility] Other 11-01-2023 Evaluation note* Encounter Date Diagnosis Assessment Notes Treatment Notes Treatment Clinical Notes Feb, S/P total left hip arthroplasty (ICD-10 - Z96.642) Feb, Aftercare following joint replacement surgery (ICD-10 - Z47.1) Feb, Presence of left artificial hip joint (ICD-10 - Z96.642) Feb, Other [facility] at [facility] on 01/31/2023 Overall patient is doing very [...] off narcotic pain medication. They can take botc-wik-gokiqoo anti-inflammatories as needed for assistance with swelling [...] examination and x-rays of the left hip. [facility] Other 10-26-2023 Evaluation note* Encounter Date Diagnosis [...] to help calm down this allergic reaction. [facility] Other 10-12-2023 Evaluation note* Encounter Date Diagnosis Assessment Notes Treatment Notes Treatment Clinical Notes Jan, Primary osteoarthritis of left hip (ICD-10 - M16.12) Jan, Age-related osteoporosis without current pathological fracture (ICD-10 - M81.0) Jan, Other manager long term care (current) drug therapy (ICD-10 - Z79.899) Jan, Other 1. Left JILLIAN Home Medications - DVT prophylaxis: Aspirin - NSAID: Celebrex - Disposition: Same-day discharge Joints Meeting Checklist - Pharmacy: [facility] to bed - Approach/Technique: anterior, [place] bed - Implants: Avenir Complete/G7; - Anesthesia: general vs spinal - Blocks: Fascia iliaca - Preop Antibiotics: Ancef - TXA: yes-systemic - Positioning/OR Bed: supine on [place] bed - Intraop X-ray: yes - Fraser: [...] above surgery. OARRS report generated and reviewed. [facility] Other 10-06-2023 Evaluation note* Encounter Date Diagnosis [...] patient could proceed with surgery safely. The business project manager was vital for surgery timing and [...] plans. Prolonged services time spent: 32 minutes [facility] Other 08-31-2023 Evaluation note* Encounter Date Diagnosis [...] note writ ten by Nino Reese MA, [employer]. Edited and approved by Dr. Sawyer Greer MD. [facility] Other 08-31-2023 Evaluation note* Encounter Date Diagnosis Assessment Notes Treatment Notes Treatment Clinical Notes Nov, Osteoarthritis of left hip (ICD-10 - M16.12) [facility] Other 05-09-2023 Evaluation note* Encounter Date Diagnosis [...] note writ ten by Jcarlos Jovel LPN, [employer]. Edited and approved by Dr. Sawyer Greer MD. [facility] Other 04-19-2023 Evaluation note* Encounter Date Diagnosis [...] note writ ten by Jcarlos Jovel LPN, [employer]. Edited and approved by Dr. Sawyer Greer MD. [facility] Other 03-20-2023 Evaluation note* Encounter Date Diagnosis [...] note writ ten by Jcarlos Jovel LPN, [employer]. Edited and approved by Dr. Sawyer Greer MD. [facility] Other 11-08-2022 Evaluation note* Encounter Date Diagnosis [...] note writ ten by Nino Reese MA, [employer]. Edited and approved by Dr. Sawyer Greer MD. [facility] Other 10-17-2022 Evaluation note* Encounter Date Diagnosis [...] note writ ten by Jcarlos Jovel LPN, [employer]. Edited and approved by Dr. Sawyer Greer [...] negative findings were considered in medical decision-making. [facility] Other 10-11-2022 Evaluation note* Encounter Date Diagnosis [...] be able to perform normal work duties. [facility] Other 02-23-2022 NoteChief Complaint consultation for right inguinal hernia [facility] Staff 50 year old female presents on [...] 06/10/2021 Family History ALS (more content not included)...[facility] Result Comment: Electronically Signed By: KHANG BARTH, Jerry Warren\Date and Time Signed: 06/10/21 16:23 [id number] Hospital Discharge instructions* Instructions* Nemo Calixto APRN [...] drive until follow up [facility]: 1(166) 893-782808-04-2021 History of Present illness Narrative* Krysten Villegas OTR/Krysta - 11/19/2020 10:42 AM EDT [facility] OCCUPATIONAL THERAPY EVALUATION - ACUTE NAME: Ana Palmer : 1970 (49 y.o.) CODE STATUS: Full Code Room: 24/N224[facility] Date of Service: 11/19/2020 Patient Diagnosis(es): Cervical [...] Ambulation Assistance: Independent Transfer Assistance: Independent Active Field Agent: Yes Occupation: Unemployed 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 Please refer to the procedure report.[facility] Phone: 1(526) 781-163108-03-2021 NoteEXAMINATION: FLUORO FOR SURGICAL PROCEDURES CLINICAL HISTORY: R52 Pain ICD10 COMPARISONS: None available. FINDINGS: Fluoroscopic assistance was provided during ACDF, C5-6 and C6-7 The total radiationtime is 31.9 seconds, radiation dose is 3.62mGy.[facility] Phone: 1(986) 593-840308-03-2021 NoteEXAMINATION: FLUORO FOR SURGICAL PROCEDURES CLINICAL HISTORY: R52 Pain ICD10 COMPARISONS: None available. FINDINGS: Fluoroscopic assistance was provided during ACDF, C5-6 and C6-7 The total radiation time is 31.9 seconds, radiation dose is 3.62mGy. IMPRESSION: Intraprocedural fluoroscopic support has been provided. Please refer to the procedure report. Interpreted by: Leandro Spaulding MD Signed by: Leandro Spaulding MD 11/18/20 [facility] Future Appointments Appointment Date:07/24/2021 01:20:00 PM Scheduled Provider:Jerry QUIÑONEZ MD Location:[facility] Appointment Type: Post Op 15 General Surgery [facility] Evaluation note* Diagnosis Cervical spondylosis with myelopathy Cervical stenosis of spine Spinal stenosis in cervical region Cervical radiculopathy Brachial neuritis or radiculitis nos documented in this encounter [employer] Work Phone: [email or web address] note* Diagnosis Post-op pain- Primary Other acute postoperative pain Pain Generalized pain Muscle spasm Spasm of muscle Cervical cord compression with myelopathy (HCC) Unspecified disease of spinal cord documented in this encounter [facility] Phone: [email or web address] note* Diagnosis Pain Generalized pain documented in this encounter [facility] Phone: [email or web address] noteNo InformationNort Zaelab Other Evaluation noteNo assessment information available [facility] Work Phone: Evaluation note* Diagnosis Onset Date Resolution Status Aftercare following left hip joint replacement surgery acute [facility] Work Phone: Evaluation note* Diagnosis Well [...] neck biopsy Hospitalization History see surgical hx [facility] Other [facility] general Narrative - Reported* Type Description Date Medical History Arthritis Medical History high cholesterol Medical History migraine headache Medical History chronic depression Medical History anxiety Surgical History C section Surgical History hernia repair Surgical History hysterectomy Surgical History neck biopsy Surgical History [facility] 01/31/2023 Hospitalization History see surgical hx [facility] Other Hospital course Narrative No data available for this section [facility] Discharge instructions* Attachments The following attachments cannot be sent through Care Everywhere. * Sedation: General Info (Botswanan) documented in this [facility] [employer] Work Phone: Hospital Discharge instructions No data available for this section [facility] Discharge instructions Additional Instructions Joint Replacement Discharge Instructions Your safety during your recovery process is important to us. Please seek immediate emergency care if you have sudden chest pain or shortness of breath. Additionally, please call our office at [phone] should any of the following occur: wound [...] walk without your walker and your childcare center administrator until the therapist checks you the following [...] and/or laxatives as directed. You may take ftbc-qkl-raeksbf Benadryl if itching occurs without a rash or hives. Icing and elevation will help relieve pain as well, do not underestimate the power of ice and elevation. We do recommend that you stop taking narcotic pain medications by 4-6 weeks after surgery and if necessary, continue to use anti-inflammatory medications such as Mobic (meloxicam), Celebrex (celecoxib), or an qyls-qjb-locolou medication (Aleve, Motrin, Ibuprofen, etc). Driving an [...] feel free to call our office at [phone]. You are a priority of ours and we will not be upset with you if you call. We would much rather you call to confirm aspects of your recovery process as opposed to possibly hindering your recovery with inappropriate care. We are committed to providing you with the best care possible. Edison Veronica II, MD Updated 07/02/2022[facility] Work Phone: Reason for Referral Status Reason Specialty Diagnoses / Procedures Referre d By Contact Referred To Contact Closed Radiology Diagnoses Cervical spondylosis with myelopathy Cervical stenosis of spine Cervical radiculopathy Procedures MRI CERVICAL SPINE WO CONTRAST Mejia Griffin MD [address] [place] [address] Status Reason Specialty Diagnoses / Procedures Referre d By Contact Referred To Contact Closed Radiology Diagnoses Pain Procedures Fluoro For Surgical Procedures Mejia Griffin MD [address] [place] [address] Reason *Waiting for appt Evaluate and Treat Sacroiliac and Trochanteric Bursitis L Hip Diagnosis 1 Inflammation of left sacroiliac joint (M46.1) Diagnosis 2 Greater trochanteric bursitis of left hip (M70.62) Referral Organization [facility] Referring Provider First Name Santiago Referring Provider Last Name Jerome Referring Provider Specialty Neurologica l Surgery Referred Organization [facility] Pain [facility] [place] Referred Provider Sawyer Greer Referred Address [address],[place],[address] Referred Provider Specialty Pain Medicin e Referral Priority Routine General Notes Nisa Zelaya M 022 10:44:35 AM >Received today and sent P2P Reason severe left hip/ helen in/ thigh pain Diagnosis 1 Osteoarthritis of le ft hip (M16.12) Referral Organization [facility] [place] Referring Provider First Name Sawyer Referring Provider Last Name Zoey Referring Provider Specialty Pain Medici ne Referred Organization [facility] Referred Provider Edison Veronica II Referred Address [address] [facility] [place],[address] Referred Provider Specialty Orthopedic S urgery Referral [...] CERVICAL SPINE WO CONTRAST Mejia Griffin MD [address] [place] [address] Status Reason Specialty Diagnoses / Procedures Re ferred By Contact Referred To Contact Diagnoses Cervical stenosis (uterine cervix) Cervical radiculopathy Spondylosis Cord compression (HCC) STENOSIS, RADICULOPATHY, SPONDYLOSIS, CORD COMPRESSION Procedures IA SPINAL FUSION,ANT,EA ADNL LEVEL IA LUMB SP FUSN,POST INTERBDY,EA ADDNL IA ARTHRODESIS ANT INTERBODY INC DISCECTOMY, CERVICAL BELOW C2 IA C-LAMINOPLASTY W/GRAFT/PLATE, 2 OR MORE ANTERIOR INSTRUMENTATION 2-3 VERTEBRAL SEGMENTS IA ALLOGRAFT FOR SPINE SURGERY ONLY STRUCTURAL IA ARTHRODESIS ANT INTERBODY INC DISCECTOMY CERVICAL BELOW C2 EA ADDL A.C.D.F (ANTERIOR CERVICAL DISKECTOMY FUSION) C5-6 C6-7 WITH POSTERIOR DECOMPRESSION LAMINOPLASTY SPANNING FROM C3-4-5-6/ 2 HRS/ 1 C-ARM. NUVASIVE/ S.S.E.P, PAT AT [facility] Mejia Griffin MD [address] [address] [facility] Reason Comments Gynecologic Exam Reason Comments Follow-up Pt present today for a f/up visit for medication Estrace. INFORMATION SOURCE (unrecogn ized section and content) DATE CREATED AUTHOR 11/09/2020 [facility] DATE CREATED AUTHOR AUTHOR'S ORGANIZ ATION 11/22/2020 [facility] DATE CREATED AUTHOR AUTHOR'S ORGANIZ ATION 08/16/2021 [facility] DATE CREATED AUTHOR AUTHOR'S ORGANIZ ATION 09/24/2022 [facility] DATE CREATED AUTHOR AUTHOR'S ORGANIZ ATION 02/04/2024 [facility] Ordered Prescriptions (unrec ognized [...] 100 mL IVPB (COMPLETED) 2,000 mg, Intravenous, TREE PLANTER TO O.R., 1 dose, On Tue11/18/20 at [...] Entry - Provider: Joe Mantilla APRN - BLIND AIDE)[id number] (Stopped - Provider: Joe Mantilla APRN - BLIND AIDE)[id number] (New Bag - Provider: Juliane Alonso, DEV) [...] Attending Provider Active Start: February 02, 2024 Triple Drum Operator Relationship Specialty Start Date End Date Gina Javier MD [facility] [place] [address] PCP - General Family Medicine 05/30/24 Triple Drum Operator Relationship Specialty Start Date End Date Gina Javier MD [address] [place] [id number] PCP - General Family Medicine 05/30/24 Goals [...] BE BASED ON THE PRIMARY CLINICAL RECORDS. CAL - [employer] [facility]. provides no warranty or guarantee of the accuracy or completeness of information in this document.
[2024-09-22 13:44] LABS: Free T3 4.29 pg/mL (2.18-3.98); Thyroid Stimulating Hormone <0.007 uIU/mL (0.358-3.740)
== END 2024-09-22 12:19 | disposition home or self-care (01) ==
LOC: LAB 12:20
PROVIDERS: PCP Family Medicine; Visit Provider Family Medicine
DX: E03.9 Hypothyroidism, unspecified (principal)
CPT/HCPCS: 36415; 84436; 84443; 84481

== ENCOUNTER 2025-01-21 16:42 | Outpatient (OUT) | payer BC, SELFPAY ==
--- NOTE | 2025-01-21 16:45 | US_ITS ---
The [address] [address] Patient Name: ANA PALMER MRN: [id number] date: 1970 Sex: F Assigned Patient Location: US Current Patient Location: US Accession/Order Number: [id number] Exam Date: 01/21/2025 16:48 Report Date: 01/21/2025 22:50 At the request of: GINA GARZA MD Procedure: US thyroid Thyroid ultrasound Reason for exam: Thyroid nodule Comparison: 08/07/2024 Technique: Grayscale and color Doppler images of the thyroid gland were obtained. Findings: The right lobe measures 5.0 x 1.9 x 1.6 cm The left lobe measures 5.4 x 2.3 x 2.0 cm cm. Isthmus measures 3.0 mm . The thyroid gland is heterogenous in echotexture with multiple nodules present largest within the right lobe involving its inferior pole measuring 2.2 x 1.9 x 1.3 cm. This demonstrates TR-3 characteristics. There is a right midpole nodule 1.2 x 0.9 x 0.6 cm in size TR-4 A dominant nodule involving the left lobe measures 2.3 x 3.1 x 1.6 cm involving its mid to inferior aspect which has solid and cystic components as well as a shadowing calcification TR-4. US/US thyroid Impression: Increase in size of the TR-4 nodule left lower lobe currently 2.3 x 3.1 x 1.6 cm in size. Correlation with site of prior biopsy recommended. Given increase in size, percutaneous sampling may be beneficial Right midpole thyroid nodule TR 4, this can be followed. Alternatively, biopsy could also be considered as well. Impression dictated by: Wu Dorado M.D. 01/21/2025 10:50 PM Dictation Location: [place] [address] Electronically authenticated by: [id number] Y Date: 01/21/2025 22:50
--- OUTSIDE RECORDS SUMMARY | 2025-01-21 16:45 | XMS_ITS | CCD ---
Author Organization [facility] Care Team Providers [employer] Driver Name Role Phone Gina Garza MD Primary Care Provider [phone] GINA GARZA Primary Care Unavailable GINA GARZA Referring Unavailable ELIAS, MEJIA H. Admitting Unavailable ELIAS, MEJIA H. Attending Unavailable ELIAS, MEJIA H. Attending Unavailable ELIAS, MEJIA H. Referring Unavailable GINA GARZA Primary Care Unavailable GINA GARZA Primary Care Unavailable ELIAS, MEJIA H. Referring Unavailable Gina Garza Primary Care Physician [phone] Santiago Cano Unavailable Sawyer Greer Unavailable MD Gina Garza Primary Care Provider [phone] MD Sawyer Greer Attending Provider [phone] GINA AVALOS Consulting Unavailable HOY ., [...] ., DR FUENTES Attending Unavailable MD Gina Garza Primary Care Provider MD Edison Veronica II Attending Provider [phone] Edison Veronica II Unavailable MD Gina Garza Primary Care Provider MD Edison Veronica II Attending Provider MD Gina aGrza Primary Care Provider [phone] MD Edison Veronica II Attending Provider MD Gina Garza Primary Care Provider [phone] MD Edison Veronica II Attending Provider [phone] Unavailable Primary Care Provider UnavailGina Fofana MD Primary Care Provider [phone] Gina Garza MD Primary Care Provider [phone] Gina Garza MD Attending Provider Edison Veronica II Admitting UnavailEdison Diaz II Attending UnavailGina Fofana Primary Care Unavailable Gina Garza Admitting Unavailable Gina Garza Primary Care Unavailable Gina Garza Attending Unavailable Gina Garza MD Primary Care Provider [phone] Allergies Allergy Classification Reported Allergen(s) Allergy Type Date of Onset Reaction(s) Facility grepafloxacin (3 sources) grepafloxacin Drug Allergy 1 [facility] (15 sources) grepafloxacin; Translations: [grepafloxacin] Drug Allergy 1 Skin reaction (observable entity), [facility] [place] (2 sources) grepafloxacin Drug Allergy [facility] Repository (9 sources) Adhesive Tape; Translations: [adhesive tape] Propensity to adverse reactions 3 Itching [facility] (1 source) grepafloxacin Drug Allergy 5 [facility] Repository Medications Current Medications Medication [...] Tue11/18/20 at 2100 Substituted for Simvastatin (ZOCOR). ceFAZolin (ANCEF) 2000 mg in dextrose 5 [...] MG O ral for 1 Days Not-Taking/PRN 168 hr estradiol 0.95045 mg/hr transdermal system (15 sources) Estrogen Start: 01-07-2025 End: 02-06-2025 estradiol (Climara) 0.075 MG/24HR Indications: Encounter for weight management , Postmenopausal HRT (hormone replacement therapy) , Hot flashes , Night sweats , Dyspareunia in female Place 1 patch over 7 days on the skin 1 (one) time per week 4 patch 3 01/07/2025 02/06/2025 Active Start: 12-20-2024 estradiol (Est race) 0.1 MG/GM vaginal cream 12/20/2024 Active Start: 12-05-2024 End: 12-05-2025 estradiol (Climara) 0.05 MG/ 24HR Indications: Postmenopausal HRT (hormone replacement therapy) , Hot flashes , Night sweats Place 1 patch over 7 days on the skin 1 (one) time per week 12 patch 3 12/05/2024 12/05/2025 Active Start: 03-14-2024 End: 06-12-2024 estradiol (Estrace) 0.1 MG/G M vaginal cream Indications: Dyspareunia in female Insert [...] Angiotensin 2 Receptor Phill Start: 06-08-2021 take 1 tablet by mouth once daily in the morning Irbesartan 150 mg tablet Active 150 MG PO Every morning January 20, 2023 12:00am Complies with drug therapy lansoprazole 30 mg delayed release oral capsule (20 sources) Proton Pump Inhibitor lansoprazole (Prevacid) [address] capsule Take 30 mg by mouth if needed (acid reflux) Active LANSOPRAZOLE PO Take 30 mg by mouth Active lansoprazole 30 mg Cap-DR (2 sources) Start: [...] by mouth once daily Multiple Vitamins-Minerals (THERAPEUTIC MULTIVITAMIN-ADMINISTRATIVE TECH ALS) tablet Take 1 tablet by mouth daily 0 Active take 1 tablet by mouth once susan y Multiple Vitamins-Minerals (THERAPEUTIC MULTIVITAMIN-MINERALS) tablet Take 1 tablet by mouth daily 0 Suspended Multivitamin preparation (7 sources) Start: 01-20-2023 take 1 tablet by mouth once daily Multivitamin Active 1 TAB PO Daily January 19, 2023 11:00pm Start: 01-20-2023 take 1 tablet by [facility] once daily Multivitamin Active 1 TAB PO Daily January 20, 2023 12:00am phentermine hydrochloride 37.5 mg oral tablet (14 sources) Sympathomimetic Amine Anorectic Start: 01-07-2025 End: 02-06-2025 take 1 tablet by mouth before mealtime phentermine (Adipex-P) 37.5 MG tablet Indications: Encounter for weight management Take 1 tablet (37.5 mg) by mouth in the morning. Take before meals. 30 tablet 01/07/2025 02/06/2025 Active take 1 capsule by [facility] every twenty-four hours Adipex-P 37.5 MG 1 capsule Orally Once a day Not-Taking/PRN Promethazine (1 source) Phenothiazine Start: 11-18-2020 promethazine (PHENERGAN) tablet 12.5 mg simvastatin 20 mg oral tablet (20 sources) HMG-CoA Reductase Inhibitor Start: 06-08-2021 take 1 tablet by mouth once daily in the morning Simvastatin 20 mg tablet Active 20 MG PO Every morning January 20, 2023 12:00am Complies with drug therapy 3 ml sodium chloride 9 mg/ml injection [...] DISCHARGE DOS: 01/31/23 Jan, Not-Taking/PRN Start: 01-20-2023 End: 10-25-2024 take 2 capsules by mouth every six hours as needed for pain Acetaminophen (Tylenol Extra Strength) 500 mg Capsule Discontinued 1000 MG PO Q6H as needed for Pain January 20, 2023 12:00am October 25, 2024 8:13am take 2 tablets by mo uth every six hours as needed acetaminophen (Tylenol) 500 MG tablet Take 1,000 mg by mouth every 6 (six) hours if needed Active take 1 capsule by mo uth every six hours Acetaminophen 500 MG 1 capsule as needed Orally every 6 hrs Active biotin 10 mg oral capsule (8 sources) Start: 01-20-2023 End: 10-25-2024 take 1 capsule by mouth once daily Biotin 10,000 mcg Capsule Discontinued 61988 MCG PO Daily January 20, 2023 12:00am October 25, 2024 8:13am calcium chloride 0.0014 meq/ml / potassium chloride [...] Anti-inflammatory Drug Start: 01-20-2023 End: 02-02-2024 take 1 tablet by mouth twice daily Diclofenac Sodium 75 mg tablet,delayed release (DR/EC) Discontinued 75 MG PO Twice daily January 20, 2023 12:00am February 02, 2024 8:18am docusate sodium 50 mg / sennosides, retirement 8.6 mg oral tablet (9 sources) Start: [...] Active doxepin hydrochloride 10 mg oral capsule (8 sources) Tricyclic Antidepressant Start: 01-20-2023 End: 02-02-2024 take 1 capsule by mouth once daily at bedtime as needed for sleep Doxepin 10 mg capsule Discontinued 10 MG PO Daily at bedtime as needed for Sleep January 20, 2023 12:00am February 02, 2024 8:19am 2 ml fentaNYL 0.05 mg/ml injection (1 source) Opioid Agonist Start: 11-18-2020 End: 11-18-2020 fentaNYL (SUBLIMAZE) injection 50 mcg methylPREDNISolone 4 mg oral tablet (5 sources) [...] 2.5 MG/ 0.5ML as directed Subcutaneous Not-Taking/PRN Multivitamin Tablet (1 source) Start: 01-20-2023 End: 10-25-2024 take 1 tablet by mouth once daily Multivitamin Tablet Discontinued 1 TAB PO Daily January 20, 2023 12:00am October 25, 2024 8:13am ondansetron 8 mg oral tablet (6 sources) [...] BED UPON DISCHARGE DOS: 01/31/23 Jan, Not-Taking/PRN polyethylene glycol 3350 31175 mg powder for oral solution (7 sources) Osmotic Laxative Start: 01-27-2023 MiraLax 17 GM 1 packet mixed with 8 ounces of fluid Orally Once a day for 7 days MED TO BED UPON DISCHARGE DOS: 01/31/23 Jan, Not-Taking/PRN Start: 11-18-2020 17 g, Oral, DA AMBROSE, First dose on Tue11/18/20 at 1815, Post-op Provitalize (8 sources) Start: 01-20-2023 End: 10-25-2024 take 1 dose by mouth once daily Provitalize Discontinued 1 DOSE PO Daily January 20, 2023 12:00am October 25, 2024 8:14am Start: 01-20-2023 take 1 dose by mouth once susan y Provitalize Active 1 DOSE PO Daily January 19, 2023 11:00pm Start: 01-20-2023 take 1 dose by mouth once susan y Provitalize Active 1 DOSE PO Daily January 20, 2023 12:00am SUMAtriptan 100 mg oral tablet (20 sources) Serotonin-1b and Serotonin-1d Receptor Agonist Start: 06-08-2021 End: 02-02-2024 take 1 tablet by mouth once as needed Sumatriptan Succinate (Imitrex) 100 mg Tablet Discontinued 100 MG PO Once as needed for migraines January 20, 2023 12:00am February 02, 2024 8:19am Tirzepatide (8 sources) Start: 01-20-2023 End: 02-02-2024 Tirzepatide (Mounjaro) [...] not specified as recurrent] Onset: 07-10-2021 Episodic Administrative/social admission (2 sources) Patient encounter status; Translations: [Persons encountering health services in other specified circumstances] 01-07-2025 Episodic Anxiety disorders (2 sources) Anxiety 06-08-2021 Chronic Asthma (2 sources) Asthma 06-08-2021 Chronic Diabetes mellitus without complication (2 sources) Diabetes mellitus 06-08-2021 Chronic Disorders of lipid metabolism (2 sources) Hyperlipidemia 06-08-2021 Chronic Essential hypertension (2 sources) Hypertensive disorder 06-08-2021 Chronic Headache; including migraine (2 sources) Migraine without aura 06-08-2021 Chronic Menopausal disorders (4 sources) Postmenopausal state; Translations: [Hormone replacement therapy] 12-05-2024 Episodic Osteoarthritis (20 sources) Arthropathy of left hip joint; Translations: [Unilateral primary osteoarthritis, left hip] Chronic Osteoporosis (8 sources) Primary osteoporosis; Translations: [Age-related osteoporosis without current pathological fracture] Chronic Other aftercare (8 sources) Patient encounter status; Translations: [Aftercare following joint replacement surgery] 02-01-2024 Chronic Other aftercare (7 sources) Aftercare following joint replacement surgery; Translations: [Aftercare following joint replacement] Onset: 02-02-2024 Chronic Other aftercare (1 source) Other bleacher lard (current) drug therapy Episodic Other connective tissue [...] Arthrodesis status Episodic Other female genital disorders (6 sources) Pain in female genitalia on intercourse; [...] disorders (2 sources) Alopecia areata 06-08-2021 Episodic Other skin disorders (4 sources) Night sweats; Translations: [Generalized hyperhidrosis] 12-05-2024 Episodic Residual codes; unclassified (2 sources) Sleep apnea 06-08-2021 Chronic Residual codes; unclassified (2 sources) Pain; Translations: [Pain, unspecified] Episodic Residual codes; unclassified (1 source) Family history of leukemia; Translations: [FAMILY HISTORY OF LEUKEMIA] Onset: 09-12-2022 Episodic Residual codes; unclassified (2 sources) Menopause present; Translations: [Asymptomatic menopausal state] 03-13-2024 Episodic Residual codes; unclassified (4 sources) Flushing; Translations: [Flushing] 12-05-2024 Episodic Spondylosis; intervertebral disc disorders; other back problems (20 sources) Cervical spondylosis with myelopathy; Translations: [Other spondylosis with myelopathy, cervical region] Onset: 11-27-2021 Chronic Thyroid disorders (1 source) Nontoxic single thyroid nodule; Translations: [Nontoxic single thyroid nodule] Onset: 10-25-2024 Chronic Past or Other Problems Problem Classification Problem Date Documented Da te Episodic/Chronic Spondylosis; intervertebral disc disorders; other back problems (8 sources) Spinal stenosis in cervical region; Translations: [Spinal stenosis, cervical region] Onset: 12-24-2021 Episodic Unclassified (1 source) Other low back pain M54.59 Results Test Name Value Interpretation Reference Range Facility Coagulation Profileon 2024 aPTT Coag (Bld) [Time] 29.4 s Normal 25.1-36.5 [facility] Comment on above: Result Comment: A he matocrit value greater than 55% may lead to inaccurate results in coagulation testing. Patients having hematocrit values >55% require a special collection tube for coagulation studies. Please contact the laboratory at [phone] for redraw instructions. PERFORMED BY: [place] [address] PATHOLOGIST ORNAMENTAL PAINTER HAMMAD NAGY M.D. Performed By: #### P LT, PP #### [address] INR in Platelet poor plasma by Coagulation assayOrdered By: Gina Garza on 10-25-2024 INR Coag (PPP) [Relative time] 1.0 {INR} Normal [facility] Comment on above: INR Therapeutic Rang e A) Pre- and Peroperative OAT started two weeks before surgery. NOT HIP SURGERY: 1.5 - 2.5 HIP SURGERY: 2 - 3B) Primary and secondary prevention of venous THROMBOSIS: 2 - 3C) Active venous thrombosis, pulmonary embolismand prevention of recurrent venous thrombosis: 2 - 3D) Prevention of arterial thromboembolismincluding patients with mechanical heart valves: 3 - 4.5 Result Comment: INR Therapeutic Range A) Pre- and Peroperative OAT started two weeks before surgery. NOT HIP SURGERY: 1.5 - 2.5 HIP SURGERY: 2 - 3 B) Primary and secondary prevention of venous THROMBOSIS: 2 - 3 C) Active venous thrombosis, pulmonary embolism and prevention of recurrent venous thrombosis: 2 - 3 D) Prevention of arterial thromboembolism including patients with mechanical heart valves: 3 - 4.5 Performed By: #### P LT, PP #### [address] 10-25-2024 L ------ Specimen: [id number] Received: 10/26/24 Status: ABRAN Dunn Num: [id number] Spec Type: Cytology Subm Dr: Reggie Vallejo, MD ERIKA Tissues: A FNA SLIDES NOPATH (THYROID FNA- ISTHMUS) B FNA SLIDES NOPATH (LT INF THYROID LOBE) Procedures: -/2, Cyto Int and Re/2, DIFF QWIK/7, PAPSTN/9 Age/ Patient Sex Location Account Attending Physician Ana Cruz 53/F [id number] Gina Garza MD SPEC NUM: [id number] RECD: 10/26/24 STATUS: ABRAN DUNN NUM: [id number] CHANO: 10/25/[address] [facility] [address]: Reggie Vallejo II, MD ENTERED: 10/26/24 [facility] DR: Gina Garza MD SPEC TYPE: Cytology DEPT: CNG ENTERED BY: [id number] RECV BY: [id number] ORDERED: -/2, Cyto Int and Re/2, DIFF QWIK/7, PAPSTN/9 ORDERED: -/2, Cyto Int and Re/2, DIFF QWIK/7, PAPSTN/9 Pathological Diagnosis A. Thyroid Isthmus nodule, fine needle aspiration (ThinPrep and Smears Slides): - Satisfactory for evaluation. - Sheets of benign-appearing follicular cells in a background of macrophages and watery colloid consistent with benign follicular nodule/cellular adenomatous nodule ([place] Category: II). - Negative for malignant cells. B. Thyroid, left inferior nodule, fine needle aspiration (ThinPrep and Smears Slides): - Suboptimal for evaluation due to scant cellularity. - Few benign- appearing follicular cells and watery colloid, favor benign follicular nodule ([place] Category: II). - Negative for malignant cells. Clinical Information Left Thyroid Nodule (3.2 cm) and Isthmus Nodule (1.2 cm). Gross Description A. (Isthmus) Received fixed in Cytolyt is 30 ml pale pink hazy fixed fluid for cytology said to have been obtained as Left Lower Thyroid Lobe and Isthmus . ThinPrep preparations are prepared for microscopic examination. Also received are 6 total smeared slides and a Thyroseq vial stored at -20 for microscopic examination. (YC/nh) Specimen: [id number] Received: 10/26/24 Status: ABRAN Dunn Num: [id number] Spec Type: Cytology Subm Dr: Reggie Vallejo II, MD Tissues: A FNA SLIDES NOPATH (THYROID FNA- ISTHMUS) B FNA SLIDES NOPATH (LT INF THYROID LOBE) Procedures: -/2, Cyto Int and Re/2, DIFF QWIK/7, PAPSTN/9 Patient: Ana Cruz [id number] (Continued) Specimen: [id number] Received: 10/26/24 (Continued) Gross Description (Continued) Signed (signature on file) August Cuellar MD 10/26/24 1002 Specimen: [id number] Received: 10/26/24 Status: ABRAN Dunn Num: [id number] Spec Type: Cytology Subm Dr: Reggie Vallejo II, MD Tissues: A FNA SLIDES NOPATH (THYROID FNA- ISTHMUS) B FNA SLIDES NOPATH (LT INF THYROID LOBE) Procedures: -/2, Cyto Int and Re/2, DIFF QWIK/7, PAPSTN/9 Patient: Ana Cruz [id number] (Continued) Specimen: [id number] Received: 10/26/24 (Continued) Gross Description (Continued) B. (Left Inferior Pole Thyroid Lobe) Received fixed in Cytolyt is 30 ml red cloudy fixed fluid for cytology said to have been obtained as Left Inferior Pole Thyroid Lobe . ThinPrep preparations are prepared for microscopic examination. Also received are 8 total smeared slides and a Thyroseq vial stored at -20 for microscopic examination. (YC/ut) Immediate Evaluation On Site Adequacy: A. Isthmus thyroid Nodule, Ultrasound-guided FNA: - Pass #1-2: Adequate YC, 10/25/24. 9:50 AM B. Left thyroid Nodule, Ultrasound-guide FNA: - Pass#1 to #3: Few Follicular cells, inadequate. - Pass #4: Blood YC, 10/25/24, 10 A.M. Microscopic Description A B: Microscopic examination is performed. CPT Codes 89735 x2, 19283 x2 Specimen: [id number] Received: 10/26/24 Status: ABRAN Dunn Num: [id number] Spec Type: Cytology Subm Dr: Reggie Vallejo II, MD Tissues: A FNA SLIDES NOPATH (THYROID FNA- ISTHMUS) B FNA SLIDES NOPATH (LT INF THYR (more content not included)... Normal [facility] Platelets [#/volume] in Bloo d by Automated countOrdered By: Gina Garza on 10-25-2024 Platelets (Bld) [#/Vol] 286 10*3/uL Normal 150-450 [facility] Comment on above: Result Comment: PERF ORMED BY: [place] [address] PATHOLOGIST ORNAMENTAL PAINTER HAMMAD NAGY M.D. Performed By: #### P LT, PP #### [address] Prothrombin time (PT)Ordered By: Gina Garza on 10-25-2024 PT Coag (PPP) [Time] 11.6 s Normal 9.0-12.9 [facility] Comment on above: A hematocrit value g reater than 55% may lead to inaccurate results in coagulation testing. Patients having hematocrit values >55% require a special collection tube for coagulation studies. Please contact the laboratory at [phone] for redraw instructions. Result Comment: A he matocrit value greater than 55% may lead to inaccurate results in coagulation testing. Patients having hematocrit values >55% require a special collection tube for coagulation studies. Please contact the laboratory at [phone] for redraw instructions. Performed By: #### P LT, PP #### [place] [id number] [facility] US needle aspirationon 10-25 US needle aspiration [facility] Main [facility] [address] [place], [place] [address] Ultrasound Report Signed Patient: Ana Cruz MR#: [id number] : 1970 Acct:[id number] Age/Sex: 53 / F ADM Date: 10/25/24 Loc: Room: Type: [facility] Attending Dr: Gina Garza MD Ordering Provider: Gina Garza MD Date of Service: 10/25/24 US/US needle aspiration: THYROID NODULES Copies to: Gina Garza MD US needle aspiration 10/25/2024 10:54 AM SIGNS AND SYMPTOMS: THYROID NODULES INFORMED CONSENT: Reason for procedure was discussed with the patient. The procedure expectations risks benefits options and alternatives were discussed. All the questions were answered. The patient understood the results cannot be guaranteed. The procedure is indicated and risks were acceptable. Consent was obtained. PROCEDURE: The suspicious nodules in the thyroid isthmus and the inferior pole the left thyroid lobe was visualized using grayscale and color Doppler sonographic imaging. The skin was marked in these locations. The skin was prepped and draped in a sterile manner. 6 mL of lidocaine 2% without epinephrine were used for local anesthesia. Under ultrasound visualization a total of 4 fine needle aspirates were performed along the nodule within the isthmus and a total of 5 fine needle aspirates were performed along the left thyroid lobe nodule. The needles were removed and hemostasis was gained using manual pressure. A bandage was placed over the puncture site. The patient tolerated the procedure well. No immediate complications were detected. US/US needle aspiration IMPRESSION: Successful ultrasound-guided fine-needle aspiration of thyroid nodules as above. Impression dictated by: Reggie Vallejo M.D. 10/25/2024 3:57 PM Dictation Location: [place] [address] Tech: Renetta Tali Transcribed By: SAAD 10/25/241556 Dictated By: Reggie Vallejo II, MD 10/25/241549 Signed By: 10/25/241556 Normal [facility] aPTT in Platelet poor plasma by Coagulation assayOrdered By: Gina Garza on 10-25-2024 aPTT Coag (PPP) [Time] 29.4 s 25.1-36.5 [facility] Comment on above: A hematocrit value g reater than 55% may lead to inaccurate results in coagulation testing. Patients having hematocrit values >55% require a special collection tube for coagulation studies. Please contact the laboratory at [phone] for redraw instructions. IGP,APTIMA HPV,AGE GDLNon AGE GDLN ACOG TESTING Note . [facility] Comment on above: TESTS RESULT FLAG U NITS REF RANGE LAB Clinician Provided Cytology Information Source.............Vagina No. of containers..01 ThinPrep Vial Age Algo ACOG Darline... 30-65 01 FLAG LEGEND: L-Low Normal,H-High Normal,LL-Alert Low,HH-Alert High <-Panic Low,>-Panic High,A-Abnormal,AA-Critical Abnormal Performed at: 01 =G [address] [place] [address] Michelle Rahman MD, HPV APTIMA Negative Negative [facility] Comment on above: This nucleic acid am plification test detects fourteen high- risk HPV types (16,18,31,33,35,39,45,51,52,56,58,59,66,68) without differentiation. Performed at: =G - [facility], [place] [id number] Post Office Manager: Michelle Rahman MD, Phone: [phone] Performed at: [facility] - [facility] [address] [address] [place], [place] [id number] Post Office Manager: Chris Enriquez MD, Phone: [phone] IGP, APTIMA HPV, RFX 16/18,45 Note . [facility] Comment on above: TESTS RESULT FLAG UN ITS REF RANGE LAB DIAGNOSIS: 02 NEGATIVE FOR INTRAEPITHELIAL LESION OR MALIGNANCY. CELLULAR CHANGES ASSOCIATED WITH ATROPHY ARE PRESENT. THIS SPECIMEN WAS RESCREENED PART OF OUR VEHICLE TECHNICIAN PROGRAM. Specimen adequacy: 02 Satisfactory for evaluation. Performed by: 02 Chanelle Padilla, Electroencephalographic Technologist ([facility]) QC reviewed by: 02 Simon Wong, Electroencephalographic Technologist ([facility]) . 02 Note: Note 03 The [...] High,A-Abnormal,AA-Critical Abnormal Performed at: 02 [facility] [address] [address] [place] [address] Chris Enriquez MD, 03 WB [facility] [address] [place] [address] Michelle Rahman MD, SPATULA-ALONE [facility] XR hip LT min 2V(w/wo pelvis )*on 02-02-2024 XR hip LT min 2V(w/wo pelvis)* [facility] [address] [place] [address] XRay Report Signed Patient: Ana Cruz MR#: [id number] : 1970 Acct:[id number] Age/Sex: 53 / F ADM Date: 02/02/24 Loc: [facility] Room: Type: [facility] Attending Dr: Edison Veronica II, MD [...] 9:56 AM Dictation Location: RADIO-PC-10 Transcribed By: [facility] 02/02/24955 Dictated By: Radha Godinez MD 02/02/2450 Signed By: 02/02/24955 Normal [facility] XR hip LT min 2V(w/wo pelvis )*on 04-20-2023 XR hip LT min 2V(w/wo pelvis)* [facility] [employer] Other XR hip LT min 2V(w/wo pelvis)* [facility] Main [facility] [employer] Other XR hip LT min 2V(w/wo pelvis)* [address] [place] [address] [employer] Other XR hip LT min 2V(w/wo pelvis)* [place] [address] [employer] Other XR hip LT min 2V(w/wo pelvis)* XRay Report [employer] Other XR hip LT min 2V(w/wo pelvis)* Signed [employer] Other XR hip LT min 2V(w/wo pelvis)* Patient: Ana Cruz MR#: [id number] [employer] Other XR hip LT min 2V(w/wo pelvis)* : 1970 Acct:[id number] [employer] Other XR hip LT min 2V(w/wo pelvis)* Age/Sex: 52 / F ADM Date: 04/20/23 [employer] Other XR hip LT min 2V(w/wo pelvis)* Loc: [facility] Room: Type: [facility] [employer] Other XR hip LT min 2V(w/wo pelvis)* Attending Dr: Edison Veronica II, MD [employer] Other XR hip LT min 2V(w/wo pelvis)* Copies to: Edison Veronica MD [employer] Other XR hip LT min 2V(w/wo pelvis)* Ordering Provider: Edison Veronica MD [employer] Other XR hip LT min 2V(w/wo pelvis)* Date of Service: 04/20/23 [employer] Other XR hip LT min 2V(w/wo pelvis)* XR/XR hip LT min 2V(w/wo pelvis)*: S/P total left hip arthroplasty [employer] Other XR hip LT min 2V(w/wo pelvis)* AP PELVIS AND LEFT HIP - 2 views: [employer] Other XR hip LT min 2V(w/wo pelvis)* CLINICAL HISTORY: Follow-up left hip replacement [employer] Other XR hip LT min 2V(w/wo pelvis)* COMPARISON: 03/17/2023 [employer] Other XR hip LT min 2V(w/wo pelvis)* AP view of the pelvis and crosstable lateral view of the left hip were obtained. A left hip [employer] Other XR hip LT min 2V(w/wo pelvis)* prosthesis is again visualized. The hardware appears intact and unchanged from the prior. There is [employer] Other XR hip LT min 2V(w/wo pelvis)* no developing fracture or dislocation. There is minor sclerosis at the SI joints. There are no [employer] Other XR hip LT min 2V(w/wo pelvis)* significant soft tissue abnormalities. [employer] Other XR hip LT min 2V(w/wo pelvis)* XR/XR hip LT min 2V(w/wo pelvis)* [employer] Other XR hip LT min 2V(w/wo pelvis)* IMPRESSION: [employer] Other XR hip LT min 2V(w/wo pelvis)* STABLE LEFT HIP REPLACEMENT [employer] Other XR hip LT min 2V(w/wo pelvis)* Impression dictated by: Radha Godinez M.D.04/20/2023 11:47 AM [employer] Other XR hip LT min 2V(w/wo pelvis)* Dictation Location: RADIO-PC-10 [employer] Other XR hip LT min 2V(w/wo pelvis)* Transcribed By: PWS 04/20/23 1147 [employer] Other XR hip LT min 2V(w/wo pelvis)* Dictated By: Radha Godinez MD 04/20/23 1146 [employer] Other XR hip LT min 2V(w/wo pelvis)* Signed By: [employer] Other XR hip LT min 2V(w/wo pelvis)* 04/20/23 1143 [employer] Other Glucose Glucometer (BldC) [M ass/Vol]Ordered By: Edison Veronica on 01-31-2023 Glucose [Mass/Vol] 179 mg/dL [facility] Comment on above: Random Glucose Refer ence Range is dependent on time and content of last meal. Glucose of more than 200 mg/dL in a nonstressed, ambulatory subject supports the diagnosis of Diabetes Mellitus. Automated erythrocytes count in urine sediment (number/area)Ordered By: Edison Veronica on 01-20-2023 RBC Auto (Urine sed) [#/Area] None seen [HPF] 0-4 [facility] Automated leukocytes count i n urine sediment (number/area)Ordered By: Edison Veronica on 01-20-2023 WBC Auto (Urine sed) [#/Area] 3-4 [HPF] 0-4 [facility] Basophils Auto (Bld) [#/Vol] Ordered By: Edison Veronica on 01-20-2023 Basophils (Bld) [#/Vol] 0.0 10*3/uL 0.0-0.2 [facility] Basophils/100 WBC Auto (Bld) Ordered By: Edison Veronica on 01-20-2023 Basophils/100 WBC (Bld) 1.0 % . [facility] Bilirubin Test strip Ql (U)O rdered By: Edison Veronica on 01-20-2023 Bilirubin Ql (U) Negative Negative [facility] Calcium [Mass/volume] in Ser um or PlasmaOrdered By: Edison Veronica on 01-20-2023 Calcium [Mass/Vol] 9.2 mg/dL 8.6-10.3 [facility] Carbon dioxide, total [Moles /volume] in Serum or PlasmaOrdered By: Edison Veronica on 01-20-2023 CO2 [Moles/Vol] 29.0 mmol/L 21.0-31.0 [facility] Chloride [Moles/volume] in S sima or PlasmaOrdered By: Edison Veronica on 01-20-2023 Chloride [Moles/Vol] 103 mmol/L 98-107 [facility] Color Auto (U)Ordered By: Lilian Veronica on 01-20-2023 Color (U) Yellow Yellow [facility] Creatinine [Mass/volume] in Serum or PlasmaOrdered By: Edison Veronica on 01-20-2023 Creatinine [Mass/Vol] 0.67 mg/dL 0.60-1.20 [facility] Eosinophils Auto (Bld) [#/Vo l]Ordered By: Edison Veronica on 01-20-2023 Eosinophils (Bld) [#/Vol] 0.0 10*3/uL 0.0-0.45 [facility] Eosinophils/100 WBC Auto (Bl d)Ordered By: Edison Veronica on 01-20-2023 Eosinophils/100 WBC (Bld) 0.0 % . [facility] Erythrocyte distribution wid th Auto (RBC) [Ratio]Ordered By: Edison Veronica on 01-20-2023 Erythrocyte distribution width (RBC) [Ratio] 14.0 % 11.9-15.3 [facility] Fructosamine [Moles/volume] in Serum or PlasmaOrdered By: Edison Veronica on 01-20-2023 Fructosamine [Moles/Vol] 196 umol/L 0-285 [facility] Comment on above: Published reference interval for apparently healthysubjects between age 20 and 60 is 205 - 285 umol/L and in apoorly controlled diabetic population is 228 - 563 umol/Lwith a mean of 396 umol/L.Performed at: - [facility] [id number] Director: Lane Rivera PhD, Phone: [phone] Glucose [Mass/volume] in Ser um or PlasmaOrdered By: Edison Veronica on 01-20-2023 Glucose [Mass/Vol] 149 mg/dL 70-100 [facility] Comment on above: ADA recommended refe rence rangeRandom Glucose Reference Range is dependent on time and content of last meal. Glucose of more than 200 mg/dL in a nonstressed, ambulatory subject supports the diagnosis of Diabetes Mellitus. Hematocrit Auto (Bld) [Volum e fraction]Ordered By: Edison Veronica on 01-20-2023 Hematocrit (Bld) [Volume fraction] 36.6 % 34.0-46.4 [facility] Hemoglobin [Mass/volume] in BloodOrdered By: Edison Veronica on 01-20-2023 Hemoglobin (Bld) [Mass/Vol] 12.3 g/dL 11.8-15.4 [facility] Ketones Auto test strip (U) [Mass/Vol]Ordered By: Edison Veronica on 01-20-2023 Ketones (U) [Mass/Vol] Negative Negative [facility] Laboratory - UrinalysisOrder ed By: Edison Veronica on 01-20-2023 Hyaline casts LM Ql (Urine sed) None seen [LPF] 0-8 [facility] Leukocytes [#/volume] correc carola for nucleated erythrocytes in Blood by Automated counOrdered By: Edison Veronica on 01-20-2023 WBC corrected for nucl RBC Auto (Bld) [#/Vol] 3.5 10*3/uL 3.8-11.6 [facility] Lymphocytes Auto (Bld) [#/Vo l]Ordered By: Edison Veronica on 01-20-2023 Lymphocytes (Bld) [#/Vol] 1.3 10*3/uL 1.00-4.8 [facility] Lymphocytes/100 WBC Auto (Bl d)Ordered By: Edison Veronica on 01-20-2023 Lymphocytes/100 WBC (Bld) 36.7 % . [facility] MCH Auto (RBC) [Entitic mass ]Ordered By: Edison Veronica on 01-20-2023 MCH (RBC) [Entitic mass] 27.3 pg 24.7-34.3 [facility] MCHC Auto (RBC) [Mass/Vol]Or dered By: Edison Veronica on 01-20-2023 MCHC (RBC) [Mass/Vol] 33.5 g/dL 32.0-35.0 [facility] MCV Auto (RBC) [Entitic vol] Ordered By: Edison Veronica on 01-20-2023 MCV (RBC) [Entitic vol] 81.4 fL 80-100 [facility] Monocytes Auto (Bld) [#/Vol] Ordered By: Edison Veronica on 01-20-2023 Monocytes (Bld) [#/Vol] 0.3 10*3/uL 0.0-0.8 [facility] Monocytes/100 WBC Auto (Bld) Ordered By: Edison Veronica on 01-20-2023 Monocytes/100 WBC (Bld) 7.2 % . [facility] Neutrophils Auto (Bld) [#/Vo l]Ordered By: Edison Veronica on 01-20-2023 Neutrophils (Bld) [#/Vol] 2.0 10*3/uL 1.8-7.7 [facility] Neutrophils/100 WBC Auto (Bl d)Ordered By: Edison Veronica on 01-20-2023 Neutrophils/100 WBC (Bld) 55.1 % . [facility] Nitrite Test strip Ql (U)Ord ered By: Edison Veronica on 01-20-2023 Nitrite Ql (U) Negative Negative [facility] No Panel InformationOrdered By: Edison Veronica on 01-20-2023 Estimated GFR (CKD-EPI) > 60.0 mL/Min [facility] Creatinine Clearance (Chem N/A [facility] Nucleated erythrocytes [Pres ence] in Blood by Automated countOrdered By: Edison Veronica on 01-20-2023 Nucleated RBC Auto Ql (Bld) 0.1 /100{WBC} 0-0.5 [facility] Platelet mean volume Auto (B ld) [Entitic vol]Ordered By: Edison Veronica on 01-20-2023 Platelet mean volume (Bld) [Entitic vol] 8.2 fL 6.3-10.7 [facility] Platelets Auto (Bld) [#/Vol] Ordered By: Edison Veronica on 01-20-2023 Platelets (Bld) [#/Vol] 248 10*3/uL 150-450 [facility] Potassium [Moles/volume] in Serum or PlasmaOrdered By: Edison Veronica on 01-20-2023 Potassium [Moles/Vol] 4.3 mmol/L 3.5-5.1 [facility] Protein Auto test strip (U) [Mass/Vol]Ordered By: Edison Veronica on 01-20-2023 Protein (U) [Mass/Vol] Negative Negative [facility] RBC Auto (Bld) [#/Vol]Ordere d By: Edison Veronica on 01-20-2023 RBC (Bld) [#/Vol] 4.50 10*6/uL 3.60-5.00 [facility] Serum or plasma anion gap de terminationOrdered By: Edison Veronica on 01-20-2023 Anion gap [Moles/Vol] 11.3 mmol/L 6.0-15.0 [facility] Sodium [Moles/volume] in Ser um or PlasmaOrdered By: Edison Veronica on 01-20-2023 Sodium [Moles/Vol] 139 mmol/L 136-145 [facility] Specific gravity Auto test s trip (U) [Rel density]Ordered By: Edison Veronica on 01-20-2023 Specific gravity (U) [Rel density] 1.008 1.001-1.03 0 [facility] Squamous epithelial cells de tection in urine sediment by light microscopyOrdered By: Edison Veronica on 01-20-2023 Epithelial cells.squamous LM Ql (Urine sed) None seen [HPF] 0-2 [facility] Urea nitrogen [Mass/volume] in Serum or PlasmaOrdered By: Edison Veronica on 01-20-2023 Urea nitrogen [Mass/Vol] 16 mg/dL 7-25 [facility] Urine bacteria detection by automated methodOrdered By: Edison Veronica on 01-20-2023 Bacteria Auto Ql (U) None seen None Seen [facility] Urine clarity by refractomet ry automatedOrdered By: Edison Veronica on 01-20-2023 Clarity Refractometry automated (U) Clear Clear [facility] Urine glucose measurement by automated test strip (mass/volume)Ordered By: Edison Veronica on 01-20-2023 Glucose Auto test strip (U) [Mass/Vol] Normal mg/dL Normal [facility] Urine hemoglobin detection b y automated test stripOrdered By: Edison Veronica on 01-20-2023 Hemoglobin Auto test strip Ql (U) Negative Negative [facility] Urine leukocyte esterase det ection by automated test stripOrdered By: Edison Veronica on 01-20-2023 Leukocyte esterase Auto test strip Ql (U) 2+ Negative [facility] Urobilinogen Auto test strip (U) [Mass/Vol]Ordered By: Edison Veronica on 01-20-2023 Urobilinogen (U) [Mass/Vol] Normal mg/dL Normal [facility] WBC Auto (Bld) [#/Vol]Ordere d By: Edison Veronica on 01-20-2023 WBC (Bld) [#/Vol] 3.5 10*3/uL 3.8-11.6 [facility] pH Auto test strip (U)Ordere d By: Edison Veronica on 01-20-2023 pH (U) 6.0 [pH] 5.0-9.0 [facility] Albumin [Mass/volume] in Ser um or Plasma by Bromocresol green (BCG) dye binding methoOrdered By: Edison Veronica on 12-24-2022 Albumin BCG dye [Mass/Vol] 4.5 g/dL 3.5-5.7 [facility] Cotinine [Mass/volume] in Se rum or PlasmaOrdered By: Edison Veronica on 12-24-2022 Cotinine [Mass/Vol] <1.0 ng/mL . [facility] Comment on above: This test was develo ped and its performance characteristicsdetermined by [facility]. It has not been cleared orapproved by the Food and Drug Administration.Cotinine levels greater than 20.0 are consistent with theuse of tobacco or tobacco cessation products.Performed at: - [facility] [id number] Director: Antonio Dumont MD, Phone: [phone] Glucose mean value [Mass/vol ume] in Blood Estimated from glycated hemoglobinOrdered By: Edison Veronica on 12-24-2022 Average glucose Estimated from glycated hemoglobin (Bld) [Mass/Vol] 111 mg/dL [facility] Hemoglobin A1c percentageOrd ered By: Edison Veronica on 12-24-2022 HbA1c (Bld) [Mass fraction] 5.5 % 4.3-5.6 [facility] Comment on above: Increased risk for d iabetes: 5.7 - 6.4diabetes: >6.4glycemic control for adults with diabetes: <7.0 Hemoglobin [Mass/volume] in BloodOrdered By: Edison Veronica on 12-24-2022 Hemoglobin (Bld) [Mass/Vol] 13.0 g/dL 11.8-15.4 [facility] Nicotine [Mass/volume] in Se rum or PlasmaOrdered By: Edison Veronica on 12-24-2022 Nicotine [Mass/Vol] <1.0 ng/mL . [facility] Comment on above: This test was develo ped and its performance characteristicsdetermined by [employer]. It has not been cleared orapproved by the Food and Drug Administration.Nicotine levels greater than 2.0 are consistent with theuse of tobacco or tobacco cessation products. Vitamin D+Metabolites [Mass/ volume] in Serum or PlasmaOrdered By: Edison Veronica on 12-24-2022 Vitamin D+Metabolites [Mass/Vol] 50.9 ng/mL 30-100 [facility] Comment on above: VITAMIN D [...] (Unsp spec) No MRSA Isolated 2 Days [facility] MRSA isol Org specific cx Ql (Unsp spec) No MRSA Isolated 2 Days [facility] MG MAMM SCREEN 3D ADALBERTO CADon 09-09-2022 MG MAMM SCREEN 3D ADALBERTO CAD Patient: ANA CRUZ Exam Date: 09/09/2022 : 1970 Gender:F Ordering : DR GINA GARZA . Admission #: [id number] Family : Order #: [id number] CLICK HERE TO VIEW EXAM RADIOLOGY REPORT [...] aml cancer at age 24. LOCATION: [facility] BREAST COMPOSITION: Heterogeneously dense,which may obscure [...] LUMP SHOULD BE BIOPSIED. Dictated by: Ale Ponce MD on 09/09/2022 at 12:03 Approved by: Ale Ponce MD on 09/09/2022 at 12:06 Normal [facility] CBC AUTO DIFFon 07-08-2022 BASO # 0.0 103/ul Normal 0.0-0.1 [facility] Comment on above: Performed By: #### C BC #### [facility] [address] [address] [address] Juliana Brooks Basophils/100 WBC (Bld) 0.9 % Normal 0.2-2.0 [facility] Comment on above: Performed By: #### C BC #### [facility] [address] [place] [address] Dr. Juliana Brooks EO # 0.0 103/ul Normal 0.0-0.7 [facility] Comment on above: Performed By: #### C BC #### [facility] [address] [place] [address] Dr. Juliana Brooks Eosinophils/100 WBC (Bld) 0.4 % Critically low 0.9-7.0 [facility] Comment on above: Performed By: #### C BC #### [facility] [address] [place] [address] Dr. Juliana Brooks Erythrocyte distribution width (RBC) [Ratio] 16.3 % Critically high 11.0-15.0 [facility] Comment on above: Performed By: #### C BC #### [facility] [address] [place] [address] Dr. Juliana Brooks Hematocrit (Bld) [Volume fraction] 37.3 % Normal 36.0-48.0 [facility] Comment on above: Performed By: #### C BC #### [facility] [address] [place] [address] Dr. Juliana Brooks Hemoglobin (Bld) [Mass/Vol] 11.1 g/dL Critically low 12.0-16.0 [facility] Comment on above: Performed By: #### C BC #### [facility] [address] [place] [address] Dr. Juliana Brooks IG # 0.01 10e3/ul Normal 0.00-0.03 [facility] Comment on above: Performed By: #### C BC #### [facility] [address] [place] [address] Dr. Juliana Brooks IG % 0.2 % Normal 0.0-0.5 [facility] Comment on above: Performed By: #### C BC #### [facility] [address] [place] [address] Dr. Juliana Brooks LYMPH # 1.6 103/ul Normal 1.2-3.8 [facility] Comment on above: Performed By: #### C BC #### [facility] [address] [place] [address] Dr. Juliana Brooks Lymphocytes/100 WBC (Bld) 33.0 % Normal 20.5-60.0 [facility] Comment on above: Performed By: #### C BC #### [facility] [address] [place] [address] Dr. Juliana Brooks MANUAL DIFF REQ NO Normal [facility] Comment on above: Performed By: #### C BC #### [facility] [address] [place] [address] Dr. Juliana Brooks MCH (RBC) [Entitic mass] 23.2 pg Critically low 26.7-34.0 [facility] Comment on above: Performed By: #### C BC #### [facility] [address] [place] [address] Dr. Juliana Brooks MCHC (RBC) [Mass/Vol] 29.8 g/dL Critically low 29.9-35.2 [facility] Comment on above: Performed By: #### C BC #### [facility] [address] [place] [address] Dr. Juliana Brooks MCV (RBC) [Entitic vol] 78.0 fL Critically low 81.0-99.0 [facility] Comment on above: Performed By: #### C BC #### [facility] [address] [place] [address] Dr. Juliana Brooks MONO # 0.5 103/ul Normal 0.3-0.8 [facility] Comment on above: Performed By: #### C BC #### [facility] [address] [place] [address] Dr. Juliana Brooks Monocytes/100 WBC (Bld) 10.0 % Normal 1.7-12.0 [facility] Comment on above: Performed By: #### C BC #### [facility] [address] [place] [address] Dr. Juliana Brooks NEUT # 2.6 103/ul Normal 1.4-6.5 [facility] Comment on above: Performed By: #### C BC #### [facility] [address] [place] [address] Dr. Juliana Brooks Neutrophils/100 WBC (Bld) 55.5 % Normal 43.0-75.0 [facility] Comment on above: Performed By: #### C BC #### [facility] [address] [place] [address] Dr. Juliana Brooks Platelet mean volume (Bld) [Entitic vol] 10.2 fL Normal 9.5-13.5 [facility] Comment on above: Performed By: #### C BC #### [facility] [address] [place] [address] Dr. Juliana Brooks PLT 320 103/ul Normal 150-450 [facility] Comment on above: Performed By: #### C BC #### [facility] [address] [place] [address] Dr. Juliana Brooks RBC 4.78 106/ul Normal 4.20-5.40 [facility] Comment on above: Performed By: #### C BC #### [facility] [address] [place] [address] Dr. Juliana Brooks WBC 4.7 103/ul Normal 4.0-11.0 [facility] Comment on above: Performed By: #### C BC #### [facility] [address] [place] [address] Dr. Juliana Brooks FREE THYROXINE INDEX T7on FTI 3.24 Normal 1.30-4.50 [facility] Comment on above: Performed By: #### T 7, TSH, CMP, LIPID #### [facility] [address] [place] [address] Dr. Juliana Brooks T3U 36.0 % Normal 30.0-39.0 [facility] Comment on above: Performed By: #### T 7, TSH, CMP, LIPID #### [facility] [address] [place] [address] Dr. Juliana Brooks T4 [Mass/Vol] 9.00 ug/dL Normal 4.80-13.90 [facility] Comment on above: Performed By: #### T 7, TSH, CMP, LIPID #### [facility] [address] [address] [address] Juliana Brooks GLYCOHEMOGLOBIN A1Con 2022 ADA RECOMMENDATION SEE BELOW Normal [facility] Comment on above: Result Comment: ADA RECOMMENDED LIMIT 4.0 - 6.0 ADA THERAPEUTIC TARGET < 7.0 ACTION SUGGESTED > 7.0 Performed By: #### A 1C #### [facility] [address] [address] [address] Juliana Brooks Glucose [Mass/Vol] 137 mg/dL Normal [facility] Comment on above: Performed By: #### A 1C #### [facility] [address] [address] [address] Juliana Brooks HbA1c (Bld) [Mass fraction] 6.4 % Critically high 4.5-6.2 [facility] Comment on above: Performed By: #### A 1C #### [facility] [address] [address] [address] Juliana Brooks IRONon 07-08-2022 Iron [Mass/Vol] 54.0 ug/dL Normal 50.0-170.0 [facility] Comment on above: Performed By: #### I SARAH #### [facility] [address] [address] [address] Juliana Brooks LIPID PROFILEon 07-08-2022 CHOL-HDL RATIO NORM SEE BELOW Normal [facility] Comment on above: Result Comment: 3.3 - 4.4 LOW RISK 4.4 - 7.1 AVERAGE RISK 7.1 - 11.0 MODERATE RISK >11.0 HIGH RISK Performed By: #### T 7, TSH, CMP, LIPID #### [facility] [address] [address] [address] Juliana Brooks Cholesterol [Mass/Vol] 159 mg/dL Normal <=200 [facility] Comment on above: Performed By: #### T 7, TSH, CMP, LIPID #### [facility] [address] [address] [address] Juliana Brooks Cholesterol in HDL [Mass/Vol] 74 mg/dL Critically high 40-60 [facility] Comment on above: Performed By: #### T 7, TSH, CMP, LIPID #### [facility] [address] [address] [address] Juliana Brooks Cholesterol in LDL [Mass/Vol] 74.4 mg/dL Normal [facility] Comment on above: Performed By: #### T 7, TSH, CMP, LIPID #### [facility] [address] [address] [address] Juliana Brooks Cholesterol.total/Cho lesterol in HDL [Mass ratio] 2.1 {ratio} Normal [facility] Comment on above: Performed By: #### T 7, TSH, CMP, LIPID #### [facility] [address] [address] [address] Juliana Brooks HDL NORMAL > or = 60 mg/dl - LO W CARDIOVASCULAR RISK <40 mg/dl - HIGH CARDIOVASCULAR RISK Normal [facility] Comment on above: Performed By: #### T 7, TSH, CMP, LIPID #### [facility] [address] [address] [address] Juliana Brooks LDL CALC NORMAL SEE BELOW Normal [facility] Comment on above: Result Comment: <100 mg/dl OPTIMAL 100 - 129 mg/dl NEAR OR ABOVE OPTIMAL 130 - 159 mg/dl BORDERLINE HIGH 160 - 189 mg/dl HIGH >190 mg/dl VERY HIGH Performed By: #### T 7, TSH, CMP, LIPID #### [facility] [address] [address] [address] Juliana Brooks Triglyceride [Mass/Vol] 53 mg/dL Normal <=150 [facility] Comment on above: Performed By: #### T 7, TSH, CMP, LIPID #### [facility] [address] [address] [address] Juliana Brooks VLDL CALC 10.6 mg/dL Normal [facility] Comment on above: Performed By: #### T 7, TSH, CMP, LIPID #### [facility] [address] [address] [address] Juliana Brooks PROF 14(COMP METB)on 023 Albumin [Mass/Vol] 3.6 g/dL Normal 3.4-5.0 [facility] Comment on above: Performed By: #### T 7, TSH, CMP, LIPID #### [facility] [address] [address] [address] Juliana Brooks Albumin/Globulin [Mass ratio] 1.1 {ratio} Normal [facility] Comment on above: Performed By: #### T 7, TSH, CMP, LIPID #### [facility] [address] [address] [address] Juliana Brooks ALP [Catalytic activity/Vol] 107 U/L Normal 46-116 [facility] Comment on above: Performed By: #### T 7, TSH, CMP, LIPID #### [facility] [address] [place] [address] Dr. Juliana Brooks ALT [Catalytic activity/Vol] 26 U/L Normal 14-59 [facility] Comment on above: Performed By: #### T 7, TSH, CMP, LIPID #### [facility] [address] [address] [address] Juliana Brooks Anion gap [Moles/Vol] 11.1 mmol/L Normal [facility] Comment on above: Performed By: #### T 7, TSH, CMP, LIPID #### [facility] [address] [place] [address] Dr. Juliana Brooks AST [Catalytic activity/Vol] 19 U/L Normal 15-37 [facility] Comment on above: Performed By: #### T 7, TSH, CMP, LIPID #### [facility] [address] [address] [address] Juliana Brooks Bilirubin [Mass/Vol] 0.3 mg/dL Normal 0.2-1.0 [facility] Comment on above: Performed By: #### T 7, TSH, CMP, LIPID #### [facility] [address] [address] [address] Juliana Brooks Calcium [Mass/Vol] 9.2 mg/dL Normal 8.5-10.1 [facility] Comment on above: Performed By: #### T 7, TSH, CMP, LIPID #### [facility] [address] [address] [address] Juliana Brooks Chloride [Moles/Vol] 106 mmol/L Normal 98-107 [facility] Comment on above: Performed By: #### T 7, TSH, CMP, LIPID #### [facility] [address] [address] [address] Juliana Brooks CO2 [Moles/Vol] 28.3 mmol/L Normal 21.0-32.0 [facility] Comment on above: Performed By: #### T 7, TSH, CMP, LIPID #### [facility] [address] [place] [address] Dr. Juliana Brooks Creatinine [Mass/Vol] 0.60 mg/dL Normal 0.55-1.02 [facility] Comment on above: Performed By: #### T 7, TSH, CMP, LIPID #### [facility] [address] [place] [address] Dr. Juliana Brooks EGFR-AF [place] >60 Normal >=60 [facility] Comment on above: Performed By: #### T 7, TSH, CMP, LIPID #### [facility] [address] [place] [address] Dr. Juliana Brooks EGFR-NON AF [place] >60 Normal >=60 [facility] Comment on above: Performed By: #### T 7, TSH, CMP, LIPID #### [facility] [address] [place] [address] Dr. Juliana Brooks Globulin (S) [Mass/Vol] 3.4 g/dL Normal [facility] Comment on above: Performed By: #### T 7, TSH, CMP, LIPID #### [facility] [address] [place] [address] Dr. Juliana Brooks Glucose [Mass/Vol] 104 mg/dL Normal 74-106 [facility] Comment on above: Performed By: #### T 7, TSH, CMP, LIPID #### [facility] [address] [place] [address] Dr. Juliana Brooks Potassium [Moles/Vol] 4.4 mmol/L Normal 3.5-5.1 [facility] Comment on above: Performed By: #### T 7, TSH, CMP, LIPID #### [facility] [address] [address] [address] Juliana Brooks Protein [Mass/Vol] 7.0 g/dL Normal 6.4-8.2 [facility] Comment on above: Performed By: #### T 7, TSH, CMP, LIPID #### [facility] [address] [address] [address] Juliana Brooks Sodium [Moles/Vol] 141 mmol/L Normal 136-145 [facility] Comment on above: Performed By: #### T 7, TSH, CMP, LIPID #### [facility] [address] [address] [address] Juliana Brooks Urea nitrogen [Mass/Vol] 11.0 mg/dL Normal 7.0-18.0 [facility] Comment on above: Performed By: #### T 7, TSH, CMP, LIPID #### [facility] [address] [address] [address] Juliana Brooks Urea nitrogen/Creatinine [Mass ratio] 18.3 mg/mg Normal [facility] Comment on above: Performed By: #### T 7, TSH, CMP, LIPID #### [facility] [address] [place] [address] Dr. Juliana Brooks TSHon 07-08-2022 TSH Qn m[IU]/L Critically low 0.358-3.74 0 [facility] Comment on above: Performed By: #### T 7, TSH, CMP, LIPID #### [facility] [address] [place] [address] Dr. Juliana Brooks MRI LSPINE WO CONon [...] by: IRENE AGUILERA Date: 2021-12-24 16:08 Normal [facility] XR LSPINE MIN 4 VIEWSon 11-16 [...] Mild degenerative changes Electronically authenticated by: ALE PONCE Date: 2021-11-26 18:41 Normal [facility] Ambulatory Visit Summaryon 0 07-24-2021 Ambulatory Visit Summary ANA CRUZ :1970 Visit Date:07/24/2021 Ambulatory Visit Instructions Your Diagnosis Reducible right inguinal hernia Incisional hernia Your Care Team Attending Physician - KHANG BARTH, Jerry Randolph Primary Care Physician - Gina Garza MD This Is Your Medications List Contact [...] Reducible right inguinal hernia Sleep apnea Normal [facility] General Surgery Office/Clini c Noteon 07-24-2021 [...] inactivated - Not Given Patient Refuses Normal [facility] Comment on above: Result Comment: Elec tronically Signed By: KHANG BARTH, Jerry Randolph\.br\Date and Time Signed: 07/24/21 14:01 EDT Ambulatory Visit Summaryon 0 07-10-2021 Ambulatory Visit Summary ANA CRUZ :1970 Visit Date:07/10/2021 Ambulatory Visit Instructions Your Diagnosis Reducible right inguinal hernia Incisional hernia Your Care Team Attending Physician - Jerry QUIÑONEZ MD Primary Care Physician - Gina Garza MD This Is Your Medications List Contact prescribing physician if questions or concerns irbesartan (irbesartan 150 mg Tab) lansoprazole (lansoprazole 30 mg David-) simvastatin (simvastatin 20 mg Tab) sumatriptan (SUMAtriptan [...] QUIÑONEZ MD Where: General Surgery Khang/Jens Cardenas [facility] General Surgery Office/Clini c Noteon 07-10-2021 [...] inactivated - Not Given Patient Refuses Normal [facility] Comment on above: Result Comment: Elec tronically Signed By: KHANG BARTH, Jerry Warren\Date and Time Signed: 07/10/21 14:23 EDT Operative Reporton Operative Report [id number]:127 Normal [facility] Lab Reportson 06-29-2021 Lab Reports [id number]#[id number]:127 Normal [facility] ECG 12-Leadon 06-24-2021 ECG 12-Lead [id number]#[id number]:127 [facility] Pre-Certification Formon Pre-Certification Form [id number]#1.00CD:127 [facility] RAD - CT Reporton 06-14-2021 RAD - CT Report [id number]#1.00CD:127 [facility] Consent for Procedure/Surger yon 06-11-2021 Consent for Procedure/Surgery [id number]#1.00CD:127 [facility] Ambulatory Visit Summaryon 0 06-10-2021 Ambulatory Visit Summary ANA CRUZ :1970 Visit Date:06/10/2021 Ambulatory Visit Instructions Your Care Team Attending Physician - Jerry QUIÑONEZ MD Primary Care Physician - Gina Garza MD Referring Physician - Gina Garza MD This Is Your Medications List Contact [...] Radiculopathy of cervical spine Sleep apnea Normal [facility] Physician Referralon 022 Physician Referral [id number]#[id number]:127 Normal [facility] FLUORO FOR SURGICAL PROCEDUR ESOrdered By: Mejia Griffin on 11-18-2020 Jamie, Chpo Incoming R adiant Results From [employer] - 11/18/2020 2:23 PM EDT EXAMINATION: FLUORO FOR SURGICAL PROCEDURES CLINICAL HISTORY: R52 Pain ICD10 COMPARISONS: None available. FINDINGS: Fluoroscopic assistance was provided during ACDF, C5-6 and C6-7 The total radiation time is 31.9 seconds, radiation dose is 3.62mGy. IMPRESSION: Intraprocedural fluoroscopic support has been provided. Please refer to the procedure report. [employer] Work Phone: [employer] Work Phone: Surgical Specimenon 11-19-19 21 Surgical Specimen [facility] [address] [place], [place] [id number] FINAL SURGICAL PATHOLOGY REPORT Patient Name: ANA CRUZ Accession No: [id number] Age Sex: 1970 Location: DIS [id number] Account No: [id number] Collected: 11/18/2020 Med Rec No: [id number] Received: 11/18/2020 Attend Phys: MEJIA GRIFFIN Completed: [...] in three cassettes following decalcification. LUAN CPT: 54619 X1 24665 X1 JERAMIE ERVIN M.D. 11/20/2020 Electronically signed out by Page 1 of 1 Invalid Interpretation Code [facility] Comment on above: Performed By: #### S UR #### [facility] [address] [place] [address] COVID-19, PCRon 11-08-2020 SARS-CoV-2 (COVID-19) RNA AISHA+probe Ql (Unsp spec) Not detected Normal Not Detect [facility] Comment on above: Result Comment: Test ing was performed using [employer] SARS-CoV-2 Assay. Negative results do not preclude [...] oropharyngeal and mid-turbinate specimens. Patient Fact Sheet: https://www.fda.gov/media/654748/download Provider Fact Sheet: https://www.fda.gov/media/433126/download FDA Specimen Types Link: https://www.fda.gov/medical-devices/ qajvklntceu-lpmcz-32-tyq-vorqwnv-fjldgyx/ghuu-hekmjzz-lqhc-cov-2 Methodology: RT-PCR Performed By: #### C OVB #### [facility] [address] [place] [address] CBC With Platelet No Differe ntialon 11-07-2020 Erythrocyte distribution width (RBC) [Ratio] 15.8 % Critically high 11.5-14.5 [facility] Comment on above: Performed By: #### C BCND #### [facility] [address] [place] [address] Hematocrit (Bld) [Volume fraction] 37.5 % Normal 37.0-47.0 [facility] Comment on above: Performed By: #### C BCND #### [facility] [address] [place] [address] Hemoglobin (Bld) [Mass/Vol] 12.1 g/dL Normal 12.0-16.0 [facility] Comment on above: Performed By: #### C BCND #### [facility] [address] [place] [address] MCH (RBC) [Entitic mass] 26.2 pg Low 27.0-31.3 [facility] Comment on above: Performed By: #### C BCND #### [facility] [address] [place] [address] MCHC 32.3 % Low 33.0-37.0 [facility] Comment on above: Performed By: #### C BCND #### [facility] [address] [place] [address] MCV (RBC) [Entitic vol] 81.3 fL Low 82.0-100.0 [facility] Comment on above: Performed By: #### C BCND #### [facility] [address] [place] [address] Platelets (Bld) [#/Vol] 301 10*3/uL Normal 130-400 [facility] Comment on above: Performed By: #### C BCND #### [facility] [address] [place] [address] RBC (Bld) [#/Vol] 4.61 10*6/uL Normal 4.20-5.40 [facility] Comment on above: Performed By: #### C BCND #### [facility] [address] [place] [address] WBC (Bld) [#/Vol] 3.7 10*3/uL Low 4.8-10.8 [facility] Comment on above: Performed By: #### C BCND #### [facility] [address] [place] [address] Partial Thromboplastin Timeo n 11-07-2020 aPTT Coag (Bld) [Time] 28.0 s Normal 24.4-36.8 [facility] Comment on above: Result Comment: Effe ctive 02/20/2020: Heparin Therapeutic Range: 64.0 ? 98.0 seconds. Performed By: #### P TT #### [facility] [address] [place] [address] Prothrombin Timeon 1 INR Coag (PPP) [Relative time] 1.0 {INR} Normal [facility] Comment on above: Performed By: #### P T #### [facility] [address] [place] [address] PT Coag (PPP) [Time] 13.3 s Normal 12.3-14.9 [facility] Comment on above: Performed By: #### P T #### [facility] [address] [place] [address] Type and Screen Capture 3 sc rn cellon 11-07-2020 Type and Screen Capture 3 scrn cell PATIENT: ESTELA PEREZ LOC: [facility] BILL# : [id number] : 1970 SEX: F ORDERED BY: TIM CASTILLO ORDERED : 11/07/2020 13:32 COLLECTED: 11/07/2020 13:32 ORDER : [id number] RECEIVED : 11/07/2020 19:33 TEST NAME RESULT UNITS RANGES ABN FL ST ABORH Capture O POS F Antibody 3 Cell Scrn Captu NEG F Normal [facility] Comment on above: Performed By: #### T S3C #### [facility] [address] [place] [place] [id number] MRI CERVICAL SPINE WO CONTRA STOrdered By: [...] gland, may consider dedicated thyroid ultrasound imaging. [facility] [place] Work Phone: EXAMINATION: MRI CER VICAL SPINE [...] hypertrophy with mild left neural foraminal narrowing. [employer] Work Phone: Jamie, Chpo Incoming R adiant Results From [employer] - 09/10/2020 12:02 PM EDT EXAMINATION: MRI [...] gland, may consider dedicated thyroid ultrasound imaging. [employer] Phone: [employer] Phone: MRI CERVICAL SPINE WO CONTRA STon [...] Leandro Spaulding MD 09/10/20 Final result Normal [facility] COVID-19, NAAon 09-04-2020 SARS-CoV-2 (COVID-19) RNA AISHA+probe Ql (Unsp spec) Not detected Normal Not Detect [facility] Comment on above: Result Comment: This nucleic acid amplification test was developed and its performance characteristics determined by [employer]. Nucleic acid amplification tests include RT-PCR and [...] detected) result in this assay. Performed at: [address] [id number] Post Office Manager: Lane Rivera PhD, Phone: [phone] Performed By: #### I RCOV #### [facility] [address] [place] [address] COVID-19, NAAon 05-18-2021 Source Swab Anterior nares Normal [facility] Comment on above: Performed By: #### I RCOV #### [facility] [address] [place] [id number] Vital Signs Date Time Vital Sign Value Performing Clinician Facility 01-07-2025 16:09-0400 Body height 162.6 cm Ze Viviane DO Work Phone: [facility] 01-07-2025 16:09-0400 Body mass index (BMI) [Ratio] 32.01 kg/m2 Ze Viviane DO Work Phone: [facility] 01-07-2025 16:09-0400 Body weight 84.6 kg Ze Viviane DO Work Phone: [facility] 01-07-2025 16:09-0400 Diastolic blood pressure 72 mm[Hg] Ze Viviane DO Work Phone: [facility] 01-07-2025 16:09-0400 Systolic blood pressure 126 mm[Hg] Ze Viviane DO Work Phone: [facility] 12-05-2024 15:33-0400 Body mass index (BMI) [Ratio] 32.26 kg/m2 Ze Viviane DO Work Phone: [facility] 12-05-2024 15:33-0400 Body weight 82.61 kg Ze Viviane DO Work Phone: [facility] 12-05-2024 15:33-0400 Diastolic blood pressure 82 mm[Hg] Ze Viviane DO Work Phone: [facility] 12-05-2024 15:33-0400 Systolic blood pressure 118 mm[Hg] Ze Viviane DO Work Phone: [facility] 10-25-2024 10:15-0400 Diastolic blood pressure 98 mm[Hg] Gina Garza MD Work Phone: [facility] 10-25-2024 10:15-0400 Heart rate 85 /min Gina Garza MD Work Phone: [facility] 10-25-2024 10:15-0400 Respiratory rate 16 /min Gina Garza MD Work Phone: [facility] 10-25-2024 10:15-0400 SaO2% (BldA) [Mass fraction] 96 % Gina Garza MD Work Phone: [facility] 10-25-2024 10:15-0400 Systolic blood pressure 165 mm[Hg] Gina Garza MD Work Phone: [facility] 10-25-2024 08:07-0400 Body height 162.56 cm Gina Garza MD Work Phone: [facility] 10-25-2024 08:07-0400 Body weight 81.64 kg Gina Garza MD Work Phone: [facility] 05-30-2024 15:46-0500 Body mass index (BMI) [Ratio] 31.18 kg/m2 Ze Viviane DO Work Phone: [facility] 05-30-2024 15:46-0500 Body weight 79.83 kg Ze Viviane DO Work Phone: [facility] 05-30-2024 15:46-0500 Diastolic blood pressure 78 mm[Hg] Ze Viviane DO Work Phone: [facility] 05-30-2024 15:46-0500 Systolic blood pressure 122 mm[Hg] Ze Viviane DO Work Phone: [facility] 02-16-2023 15:45-0400 Body height 162.56 cm Edison Veronica II Other [employer] Other 02-16-2023 15:45-0400 Body mass index (BMI) [Ratio] 25.4 kg/m2 Edison Jeremías II Other [employer] Other 02-16-2023 15:45-0400 Body weight 67.13 kg Edison Veronica II Other [employer] Other 01-31-2023 18:30-0400 Diastolic blood pressure 78 mm[Hg] MD Gina Garza Work Phone: [facility] 01-31-2023 18:30-0400 Heart rate 98 /min MD Gina Garza Work Phone: [facility] 01-31-2023 18:30-0400 Respiratory rate 16 /min MD Gina Garza Work Phone: [facility] 01-31-2023 18:30-0400 SaO2% (BldA) [Mass fraction] 96 % MD Gina Garza Work Phone: [facility] 01-31-2023 18:30-0400 Systolic blood pressure 116 mm[Hg] MD Gina Garza Work Phone: [facility] 01-31-2023 16:45-0400 Body temperature 98 [degF] MD Gina Garza Work Phone: [facility] 01-31-2023 16:15-0400 Inhaled oxygen flow rate 10 L/min MD Gina Garza Work Phone: [facility] 01-31-2023 12:49-0400 Body height 160.02 cm MD Gina Garza Work Phone: [facility] 01-31-2023 12:49-0400 Body mass index (BMI) [Ratio] 26.5 kg/m2 MD Gina Garza Work Phone: [facility] 01-31-2023 12:49-0400 Body weight 68 kg MD Gina Garza Work Phone: [facility] 01-27-2023 15:30-0400 Body height 162.56 cm Edison Veronica II Other [employer] Other 01-27-2023 15:30-0400 Body mass index (BMI) [Ratio] 25.44 kg/m2 Edison Veronica II Other [employer] Other 01-27-2023 15:30-0400 Body weight 67.22 kg Edison Veronica II Other [employer] Other 07-05-2022 12:15-0400 Body height 162.56 cm Sawyer Greer Other [employer] Other 01-26-2022 10:40-0400 Body height 162.56 cm Santiago Cano Other [employer] Other 01-26-2022 10:40-0400 Body mass index (BMI) [Ratio] 36.9 kg/m2 Santiago Cano Other [employer] Other 01-26-2022 10:40-0400 Body weight 97.52 kg Santiago Cano Other [employer] Other 07-24-2021 13:31-0400 Body temperature 97.88 [degF] Jerry QUIÑONEZ [facility] [place] 07-10-2021 14:00-0400 Body temperature 97.34 [degF] Jerry QUIÑONEZ General Surgery [place] 11-19-2020 08:27-0400 Body temperature 98.1 [degF] Mejia Griffin MD Work Phone: [employer] Work Phone: 11-19-2020 08:27-0400 Diastolic blood pressure 78 mm[Hg] Mejia Griffin MD Work Phone: [employer] Work Phone: 11-19-2020 08:27-0400 Heart rate 109 /min Mejia Griffin MD Work Phone: [employer] Work Phone: 11-19-2020 08:27-0400 SaO2% (BldA) [Mass fraction] 98 % Mejia Griffin MD Work Phone: [employer] Work Phone: 11-19-2020 08:27-0400 Systolic blood pressure 118 mm[Hg] Mejia Griffin MD Work Phone: [employer] Work Phone: 11-19-2020 04:29-0400 Respiratory rate 18 /min Mejia Griffin MD Work Phone: [employer] Work Phone: 11-18-2020 08:30-0400 Body height 162.6 cm Mejia Griffin MD Work Phone: [employer] Work Phone: 11-18-2020 08:30-0400 Body mass index (BMI) [Ratio] 34.84 kg/m2 Mejia Griffin MD Work Phone: [employer] Work Phone: 11-18-2020 08:30-0400 Body weight 92.08 kg Mejia Griffin MD Work Phone: [employer] Work Phone: 09-09-2020 14:57-0400 Diastolic blood pressure 75 mm[Hg] [place] [facility] [employer] Work Phone: 09-09-2020 14:57-0400 Heart rate 93 /min [place] [facility] [employer] Work Phone: 09-09-2020 14:57-0400 Respiratory rate 16 /min [place] [facility] [employer] Work Phone: 09-09-2020 14:57-0400 Systolic blood pressure 169 mm[Hg] [place] [facility] [employer] Work Phone: 09-09-2020 12:41-0400 Body height 162.6 cm [place] [facility] [employer] Phone: 09-09-2020 12:41-0400 Body mass index (BMI) [Ratio] 34.67 kg/m2 Dmitry Decker [employer] Phone: 09-09-2020 12:41-0400 Body weight 91.63 kg Dmitry Decker [employer] Phone: 09-09-2020 12:41-0400 SaO2% (BldA) [Mass fraction] 99 % [place] [facility] [employer] Phone: Encounters Encounter Date Encounter Type Care Provider Facility Start: 01-07-2025 End: 01-07-2025 Office outpatient visit 15 minutes Ze Viviane DO Work Phone: [facility] Comment on above: Encounter for weight management; Postmenopausal HRT (hormone replacement therapy); Hot flashes; Night sweats; Dyspareunia in female Start: 01-07-2025 End: 01-07-2025 Bamboo flowsheet Ze Viviane DO Work Phone: [facility] Start: 01-07-2025 End: 01-07-2025 Bamboo flowsheet Ze Viviane DO Work Phone: [facility] Start: 12-05-2024 End: 12-05-2024 Office outpatient visit 15 minutes Ze Viviane DO Work Phone: [facility] Comment on above: Postmenopausal HRT ( hormone replacement therapy); Hot flashes; Night sweats Start: 12-05-2024 End: 12-05-2024 Bamboo flowsheet Ze Viviane DO Work Phone: [facility] Start: 12-05-2024 End: 12-05-2024 Bamboo flowsheet Ze Viviane DO Work Phone: [facility] Start: 10-25-2024 End: 10-25-2024 Admission to same day surgery center Gina Teran MD -[facility] Work Phone: Start: 10-25-2024 End: 10-25-2024 ambulatory Gina Garza MD Work Phone: [facility] Work Phone: Start: 05-30-2024 End: 05-30-2024 Office outpatient visit 15 minutes Ze Viviane DO Work Phone: [facility] Comment on above: Dyspareunia in [...] encounter procedure Ze Viviane DO Work Phone: [facility] Start: 03-13-2024 End: 03-13-2024 Periodic preventive med est patient 40-64yrs Ze Viviane DO Work Phone: [facility] Comment on above: Well woman exam with routine gynecological exam; Encounter for screening mammogram for malignant neoplasm of breast; Asymptomatic menopausal state; Dyspareunia in female Start: 02-02-2024 End: 02-02-2024 ambulatory MD Gina Garza Work Phone: [facility] Work Phone: Start: 02-02-2024 End: 02-02-2024 Patient encounter procedure MD Gina Garza Work Phone: [facility] Work Phone: Start: 04-20-2023 Office outpatient vi sit 15 minutes Edison Jeremías II [facility] Start: 04-20-2023 End: 04-20-2023 ambulatory MD Gina Garza Work Phone: [facility] Work Phone: Start: 04-20-2023 End: 04-20-2023 Patient encounter procedure MD Gina Garza Work Phone: [facility] Start: 03-17-2023 End: 03-17-2023 ambulatory MD Gina Garza Work Phone: [facility] Work Phone: Start: 03-17-2023 End: 03-17-2023 Patient encounter procedure MD Gina Garza Work Phone: [facility] Start: 03-03-2023 (Post-Op) Post-Op Edison Jeremías II [facility] Start: 03-03-2023 End: 03-03-2023 ambulatory Edison Jeremías II Other [employer] Other Start: 02-16-2023 (Post-Op) Post-Op Edison [place] II [facility] Start: 02-16-2023 End: 02-16-2023 ambulatory Edison Jeremías II Other [employer] Other Start: 02-10-2023 (Post-Op) Post-Op Edison Jeremías II [facility] Start: 02-10-2023 End: 02-10-2023 ambulatory Edison [place] II Other [employer] Other Start: 02-09-2023 End: 02-09-2023 ambulatory Edison Jeremías II Other [employer] Other Start: 02-09-2023 Telephone encounter Edison [place] II [facility] Start: 01-31-2023 End: 01-31-2023 Admission to same day surgery center MD Gina Garza Work Phone: [facility] Start: 01-31-2023 End: 01-31-2023 ambulatory MD Gina Garza Work Phone: [facility] Work Phone: Start: 01-27-2023 End: 01-27-2023 Discharged Recurring MD Gina Garza Work Phone: [facility] [place] Start: 01-27-2023 End: 01-27-2023 ambulatory MD Gina Garza Work Phone: [employer] Other Start: 01-27-2023 Patient encounter procedure Edison [place] II [facility] Start: 01-21-2023 (Prolonged) Prolonge d Services Edison Jeremías II [facility] Start: 01-21-2023 End: 01-21-2023 ambulatory Edison Pastorle II Other [employer] Other Start: 01-20-2023 End: 01-20-2023 ambulatory MD Gina Garza Work Phone: [facility] Work Phone: Start: 01-20-2023 End: 01-20-2023 Patient encounter procedure MD Gina Garza Work Phone: [facility] Work Phone: Start: 12-24-2022 End: 12-24-2022 ambulatory MD Gina Garza Work Phone: [facility] Work Phone: Start: 12-24-2022 End: 12-24-2022 Patient encounter procedure MD Gina Garza Work Phone: [facility] Start: 12-24-2022 End: 12-24-2022 ambulatory MD Gina Garza Work Phone: [facility] Work Phone: Start: 12-24-2022 End: 12-24-2022 Patient encounter procedure MD Gina Garza Work Phone: [facility] Start: 12-16-2022 End: 12-16-2022 ambulatory Sawyer Greer Other [employer] Other Start: 12-16-2022 Office outpatient vi sit 25 minutes Sawyer Greer [facility] [place] Start: 12-16-2022 Telephone encounter Sawyer MARRERO [facility] [place] Start: 09-09-2022 End: 09-10-[address] GINA GARZA . Facility: Start: 08-24-2022 End: 08-24-2022 Patient encounter procedure MD Gina Garza Work Phone: [facility] Start: 08-24-2022 End: 08-24-2022 ambulatory MD Gina Garza Work Phone: [facility] Work Phone: Start: 08-24-2022 Office outpatient vi sit 25 minutes Sawyer Greer [facility] [place] Start: 08-16-2022 (Procedure) Short Sawyer Greer [facility] Start: 08-16-2022 End: 08-16-2022 ambulatory Sawyer Greer Other [employer] Other Start: 08-04-2022 End: 08-04-2022 ambulatory Sawyer Greer Other [employer] Other Start: 08-04-2022 Office outpatient vi sit 25 minutes Sawyer Greer [facility] [place] Start: 07-11-2022 Encounter for genera l adult medical examination without abnormal findings DR GINA GARZA . [facility] Start: 07-08-2022 End: 07-09-[address] GINA GARZA . Facility:[facility] Start: 07-08-2022 End: 07-09-2022 Encounter for general adult medical examination without abnormal findings DR GINA GARZA . Facility:[facility] Start: 07-05-2022 End: 07-05-2022 ambulatory Sawyer Greer Other [employer] Other Start: 07-05-2022 Office outpatient vi sit 25 minutes Sawyer Greer [facility] [place] Start: 04-19-2022 ambulatory DR GINA GARZA . Facili ty:H1 Start: 02-23-2022 End: 02-23-2022 ambulatory Sawyer Greer Other [employer] Other Start: 02-23-2022 Office outpatient vi sit 15 minutes Sawyer Greer [facility] [place] Start: 02-15-2022 (Procedure) Short Sawyer Greer [facility] Start: 02-15-2022 End: 02-15-2022 ambulatory Sawyer Greer Other [employer] Other Start: 02-01-2022 End: 02-01-2022 ambulatory Sawyer Greer Other [employer] Other Start: 02-01-2022 Office outpatient ne w 45 minutes Sawyer Greer [facility] [place] Start: 02-01-2022 Telephone encounter Sawyer Greer [facility] Start: 01-26-2022 End: 01-26-2022 ambulatory Santiago Cano Other [employer] Other Start: 01-26-2022 Office outpatient ne w 45 minutes Santiago Cano [facility] Start: 12-24-2021 End: 12-25-[address] GINA GARZA . Facility:[facility]1 Start: 11-26-2021 End: 11-27-[address] GINA GARZA . Facility:[facility]1 Start: 07-24-2021 End: 07-24-2021 Patient encounter procedure eJrry QUIÑONEZ General Surgery [facility] [place] Start: 07-10-2021 End: 07-10-2021 Patient encounter procedure Jerry Tomasa QUIÑONEZ General Surgery N[facility] [place] Start: 11-18-2020 End: 11-19-2020 Evaluation and management of inpatient [facility] Start: 11-18-2020 End: 11-21-2020 ambulatory MEJIA GRIFFIN [facility] Start: 11-18-2020 End: 11-19-2020 Evaluation and management of inpatient Mejia Griffin MD Work Phone: [facility] Comment on above: Post-op pain (Primar y Dx); Pain; Muscle spasm Start: 11-18-2020 End: 11-20-2020 Subsequent hospital visit by physician Mejia Griffin MD Work Phone: [facility] Comment on above: Pain Start: 09-09-2020 End: 09-12-2020 ambulatory [facility] Start: 09-09-2020 End: 09-11-2020 Subsequent hospital visit by physician [facility] Room 2 [facility] Comment on above: Cervical spondylosis with myelopathy; Cervical stenosis of spine; Cervical radiculopathy Procedures Date Procedure Procedure Detail Performing Clinician Start: 03-13-2024 IGP,APTIMA HPV,AGE GDLN Ze Viviane DO Work Phone: Start: 02-02-2024 Plain X-ray of left hip MD Gina Garza Work Phone: Start: 04-20-2023 Plain X-ray of left hip MD Gina Garza Work Phone: Start: 03-17-2023 Plain X-ray of left hip MD Gina Garza Work Phone: Start: 01-31-2023 Plain X-ray of left hip MD Gina Garza Work Phone: Start: 01-31-2023 Plain X-ray of left hip MD Gina Garza Work Phone: Start: 01-31-2023 Total replacement of left hip joint MD Gina Garza Work Phone: Start: 12-24-2022 Methicillin resistan t Staphylococcus aureus culture MD Gina Garza Work Phone: Start: 12-24-2022 Plain X-ray of left hip MD Gina Garza Work Phone: Start: 07-01-2021 Repair of right [...] Start: 03-19-2025 End: 03-19-2025 Patient encounter procedure [facility] Start: 02-04-2025 End: 02-04-2025 Patient encounter procedure 02/04/2025 3:00 PM EDT Office Visit MELIDA EPPERSON [address] [place] [address] Ze Pan DO [address] [place] [address] [facility] [place] [facility] Start: 01-07-2025 End: 01-07-2025 Patient encounter procedure MELIDA EPPERSON Comment on above: Arrived Start: 12-05-2024 End: 12-05-2024 Patient encounter procedure 12/05/2024 3:20 PM EDT Office Visit MELIDA EPPERSON [address] [place] [id number] Ze Pan, DO [address] [place] [address] Arrived MELIDA EPPERSON Comment on above: Arrived Start: 10-25-2024 [facility] Start: 10-25-2024 Aspiration [facility] Start: 05-30-2024 End: 05-30-2024 Patient encounter procedure 05/30/2024 3:20 PM EST Office Visit [facility] [address] [id number] Ze Pan, DO [address] [place] [address] Arrived [facility] Comment on above: Arrived Start: 03-13-2024 End: 03-13-2025 DXA Skeletal system Views for bone density DEXA bone density Imaging Routine Well woman exam with routine gynecological exam Asymptomatic menopausal state Expected: 03/13/2024 (Approximate), Expires: 03/13/2025 [facility] Comment on above: Expected: 03/13/2024 (Approximate), Expires: 03/13/2025 Start: 03-13-2024 End: 05-13-2025 MG Breast - bilateral Screening Bilateral screening mammogram Imaging Routine Well woman exam with routine gynecological exam Encounter for screening mammogram for malignant neoplasm of breast Expected: 03/13/2024, Expires: 05/13/2025 [facility] Work Phone: Comment on above: Expected: 03/13/2024 , Expires: 05/13/2025 Start: 02-02-2024 Plain X-ray of left hip XR hip LT min 2V(w/wo pelvis)* [facility] Start: 02-02-2024 XR Hip - left 2 Views [facility] Start: 01-31-2023 [facility] Start: 01-31-2023 [facility] Start: 01-31-2023 Physical therapy procedure [facility] Start: 01-20-2023 [facility] Start: 12-24-2022 MRSA Culture MRSA Culture [facility] Start: 12-17-2020 Influenza vaccination [employer] Phone: Start: 12-05-2020 End: 12-05-2020 Patient encounter procedure 12/05/2020 Office Visit Neurosurgery Mejia Griffin MD [address] [place], [place] [id number] [facility] Start: 09-19-2020 End: 09-19-2020 Patient encounter procedure 09/19/2020 Office Visit Neurosurgery Mejia Griffin MD [address] [place] [address] [phone] [facility] Start: 12-13-2019 Screening for malign ant neoplasm of breast Breast cancer screen [employer] Phone: Start: 12-13-2019 Screening for malign ant neoplasm of colon Colon cancer screen colonoscopy [employer] Phone: Start: 12-13-2019 Shingles Vaccine (1 of 2) Shingles Vaccine (1 of 2) [employer] Phone: Start: 2014 Screening for malign ant neoplasm of colon Colon cancer screen colonoscopy [employer] Phone: Start: 2009 Diabetes screen Diabetes screen [employer] Phone: Start: 1990 Screening for malign ant neoplasm of cervix Cervical cancer screen [employer] Phone: Start: 1988 DTaP/Tdap/Td vaccine (1 - Tdap) DTaP/Tdap/Td vaccine (1 - Tdap) [employer] Phone: Start: 1984 HIV screening HIV screen [facility] Work Phone: Start: 1981 COVID-19 Vaccine (1) COVID-19 Vaccin e (1) [employer] Phone: Start: 12-13-[address] screen [facility] Work Phone: Start: 1969 Creatinine measurement Creatinine mo nitoring [facility] [employer] Phone: Start: 1969 Hepatitis C screening Hepatitis C sc reen [facility] [employer] Phone: Start: 1969 Potassium monitoring [facility] monit [facility]: Continuous pulse oximetry Pulse oximetry, continuous Respiratory Care Routine Every 4hr until discontinued starting 11/18/2020 [facility]: Comment on above: Every 4hr until disc ontinued starting 11/18/2020 Cotinine [Mass/volum e] in Serum or Plasma [facility] End: 11-18-2020 Fluoroscopy during operation FLUORO FOR SURGICAL PROCEDURES Imaging Routine Pain Once for 1 Occurrences starting 11/18/2020 until 11/18/2020 [employer] Phone: Comment on above: Once for 1 Occurrenc es starting 11/18/2020 until 11/18/2020 Fluoroscopy during operation FLUORO FOR SURGICAL PROCEDURES Imaging Routine Pain 11/18/2020 1:30 PM EDT [facility]: Glucose measurement estimated from glycated hemoglobin [facility] Methicillin resistan t Staphylococcus aureus [Presence] in Unspecified specimen by Organism specific culture [facility] Nicotine [Mass/volum e] in Serum or Plasma [facility] Oxygen therapy [[facility]ini [facility] Data Set] [employer] Phone: Comment on above: Daily until disconti nued starting 09/09/2020 Daily until disconti nued starting 11/18/2020 Patient Education Know your Meds [facility] Biopsy, Thyroid [facility] Work Phone: Phase I & II - meter ed glucose Phase I & II - metered glucose Point of Care Testing Routine As Needed until discontinued starting 09/09/2020 [employer] Phone: Comment on above: As Needed until disc ontinued starting 09/09/2020 Spirometry panel Incentive joaquín metry Respiratory Care Routine Every 2hr while awake until discontinued starting 09/09/2020 [employer] Work Phone: Comment on above: Every 2hr while awak e until discontinued starting 09/09/2020 Surgical Pathology [facility] Work Phone: Comment on above: Release Upon Orderin g for 1 Occurrences starting 11/18/2020 End: 11-18-2020 Surgical Pathology Surgical Pathology Lab Routine Once for 1 Occurrences starting 11/18/2020 until 11/18/2020 [employer] Work Phone: Comment on above: Once for 1 Occurrenc es starting 11/18/2020 until 11/18/2020 THIN PREP TIS PAP AN D HR HPV DNA THIN PREP TIS PAP AND HR HPV DNA Pathology and Cytology Routine Well woman exam with routine gynecological exam Ordered: 03/13/2024 [facility] Comment on above: Ordered: 03/13/2024 [facility] Immunizations Immunization Date Immunization Notes Care Provider Fa cility NEGATED: Highlighted row has not occurred!06-10-2021 influenza virus vaccine, unspecified formulation Jerry QUIÑONEZ General Surgery [place] Payers Date Payer Category Payer Self-pay [id number] 2021 [facility] [place] [id number] 2020 Private Health Insurance [id number] 2020 Private Health Insurance [id number] 1969 Unknown [id number]. [id number] 1969 Unknown [id number] [id number]. 2.182 1969 Unknown [id number] [id number]. 2.182 1969 Unknown [id number] [id number]. 2.593 1969 Unknown [id number] [id number]. 2.593 1969 Unknown [id number] [id number]. 2.593 1969 Unknown [id number] [id number]. 2.593 1969 Unknown [id number]. 2.593 1959 Blue Cross Blue Shield [id number] 1960 Self-pay [id number] Blue [employer] Blue Shield [id number] Private Health Insurance [employer] [id number] Unknown [id number] [id number] Unknown [id number]. 2.531 Social History Date Type Detail Facility Start: 09-02-2020 End: 01-31-2023 Tobacco smoking status VTIS Never smoker [employer] Phone: Start: 09-02-2020 End: 11-20-2020 Tobacco use and exposure Never used [employer] Start: 1970 Sex Assigned At Not on file [employer] Phone: Start: 11-07-2020 History 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 5 [employer] Phone: Start: 11-07-2020 History SDOH Food Worry 1 [employer] Phone: Start: 1970 Sex Assigned At Female [employer] Phone: Exposure to SARS-CoV -2 (event) Not sure [employer] Tobacco smoking status Never Gener [facility] [place] Sex Assigned At Female Genera l Surgery [employer] Tobacco smoking stat [facility] Tobacco smoking consumption unknown [facility] Sex Female (finding) [facility] Medical Equipment Procedure Code Equipment Code Equipment Original Text Equipment Identifier Dates Arthroplasty, hip, total, anterior approach Acetabular shell [id number] FDA Start: 01-31-2023 Arthroplasty, hip, total, anterior approach Orthopaedic bone screw, non-bioabsorbable, sterile ()[id number] FDA Start: 01-31-2023 Arthroplasty, hip, total, anterior approach Orthopaedic bone screw, non-bioabsorbable, sterile ()[id number] FDA Start: 01-31-2023 Arthroplasty, hip, total, anterior approach Ceramic femoral head prosthesis ()[id number] FDA Start: 01-31-2023 Arthroplasty, hip, total, anterior approach Coated hip femur prosthesis, modular ()[id number] FDA Start: 01-31-2023 Arthroplasty, hip, total, anterior approach Non-constrained polyethylene acetabular liner ()[id number] FDA Start: 01-31-2023 Cage Spnl W11xh8 xl14mm Lum Lord Intbdy Fus Triad Cc - [id number] Start: 11-18-2020 Graft Spnl W11xh 4lf57ld Corticocancellous Lord Triad - [id number] Start: 11-18-2020 Screw Spnl L7mm Dia2.6mm Lum Lat Mass Leverage Lfs [id number] Start: 11-18-2020 Plate Spnl L42mm Ant Cerv 2 Lev Translational Boron Acp [id number] Start: 11-18-2020 Screw Spnl L13mm Dia4mm Ant Cerv [facility] Melanie Ang Compr Boron Acp [id number] Start: 11-18-2020 Screw Spnl L5mm Dia2.6mm [place] Leverage Lfs [id number] Start: 11-18-2020 Plate Spnl Cran Caud [place]ubbs 9.5mm M Leverage Lfs [id number] Start: 11-18-2020 Goals Date Patient Goal Desired Activity /State Clinical Notes 11-18-2020 to 01-07-2025 Ze Pan DO - 01/07/2025 3:50 PM Alvaro Mojica LPN - 12/05/2024 3:20 PM Alvaro Mojica LPN - 05/30/2024 3:20 PM Gurmeet Mojica LPN - 03/13/2024 8:30 AM EST Note Date & Type Note Facility 01-07-2025 History of Presen t illness Narrative Reason for Appointment: Patient ID: Ana Cruz is a 54 y.o. female who presents for Follow-up and Weight Management Patient presents today for Acute Visit. Current Medications: has a current medication list which includes the following prescription(s): estradiol, acetaminophen, estradiol, estradiol, irbesartan, lansoprazole, lansoprazole, phentermine, simvastatin, and sumatriptan. Medical History: Active Ambulatory Problems Diagnosis Date Noted No Active Ambulatory Problems Resolved Ambulatory Problems Diagnosis Date Noted No Resolved Ambulatory Problems No Additional Past Medical History No family history on file. Social History Tobacco Use Smoking status: Not on file Smokeless tobacco: Not on file Substance Use Topics Alcohol use: Not on file Drug use: Not on file Past Surgical History: Procedure Laterality Date SECTION, LOW TRANSVERSE HYSTERECTOMY NECK SURGERY REPLACEMENT TOTAL HIP LATERAL POSITION UMBILICAL HERNIA REPAIR Allergies Allergen Reactions Grepafloxacin Hives Review of Systems: Review of Systems Constitutional: Negative. HENT: Negative. Eyes: Negative. Respiratory: Negative. Cardiovascular: Negative. Gastrointestinal: Negative. Genitourinary: Negative. Musculoskeletal: Negative. Skin: Negative. Neurological: Negative. All other systems reviewed and are negative. Hematological: Negative. Endocrine: Negative. Allergic/Immunologic: Negative. Objective Physical Exam Constitutional: Appearance: Normal appearance. She [...] nursing note reviewed. Exam conducted with a gem technician present. Vitals: Estimated body mass index is 32.01 kg/m as calculated from the following: Height as of this encounter: 5' 4 . Weight as of this encounter: 186 lb 8 oz. BP: 126/72 No LMP recorded. Patient has had a hysterectomy. Assessment/Plan Encounter Diagnosis: ICD-10-CM 1. Encounter for weight management Z76.89 phentermine (Adipex-P) 37.5 MG tablet estradiol (Climara) 0.075 MG/24HR 2. Postmenopausal HRT (hormone replacement therapy) Z79.890 estradiol (Climara) 0.075 MG/24HR 3. Hot flashes R23.2 estradiol (Climara) 0.075 MG/24HR 4. Night sweats R61 estradiol (Climara) 0.075 MG/24HR 5. Dyspareunia in female N94.10 estradiol (Climara) 0.075 MG/24HR Cont current mgmt, pt states improved Documented by Ze Pan DO on behalf of: Ze Pan DO documented in this encounter [facility] 12-05-2024 History of Presen t illness Narrative Reason for Appointment: Patient ID: Ana Cruz is a 53 y.o. female who presents for hormone replacement Patient presents today for Consult appointment. MEDICATIONS Current Outpatient Medications Medication Instructions irbesartan (AVAPRO) 150 mg, Daily lansoprazole (PREVACID) 30 mg, As needed simvastatin (ZOCOR) 20 mg, Nightly ALLERGIES No Known Allergies PROBLEMS Active Ambulatory Problems Diagnosis Date Noted No Active Ambulatory Problems Resolved Ambulatory Problems Diagnosis Date Noted No Resolved Ambulatory Problems No Additional Past Medical History HISTORY PAST MEDICAL HISTORY SOCIAL HISTORY History reviewed. No pertinent past medical history. Social History Tobacco Use Smoking status: Not on file Smokeless tobacco: Not on file Substance Use Topics Alcohol use: Not on file Drug use: Not on file FAMILY HISTORY No family history on file. SURGICAL HISTORY Past Surgical History: Procedure Laterality Date SECTION, LOW TRANSVERSE HYSTERECTOMY NECK SURGERY REPLACEMENT TOTAL HIP LATERAL POSITION UMBILICAL HERNIA REPAIR REVIEW OF SYSTEMS Review of Systems: Review of Systems Constitutional: Positive for night sweats and hot flashes. HENT: Negative. Eyes: Negative. Respiratory: Negative. Cardiovascular: Negative. Gastrointestinal: Negative. Genitourinary: Negative. Musculoskeletal: Negative. Skin: Negative. Neurological: Negative. All other systems reviewed and are negative. Hematological: Negative. Allergic/Immunologic: Negative. OBJECTIVE Objective: Physical Exam [...] nursing note reviewed. Exam conducted with a gem technician present. Vitals: Estimated body mass index is 32.26 kg/m as calculated from the following: Height as of 18: 5' 3 . Weight as of this encounter: 182 lb 1.9 oz. BP: 118/82 No LMP recorded. Patient has had a hysterectomy. ASSESSMENT & PLAN ICD-10-CM 1. Postmenopausal HRT (hormone replacement therapy) Z79.890 2. Hot flashes R23.2 3. Night sweats R61 Pt presents with complaints of hot flashes and menopausal symptoms. Pt still using estrace cream. Rx for climara patch faxed to pharmacy to aid with symptoms of menopause. Discussed adding prometrium, pt to return in 4 weeks for follow up on climara and adipex Documented by Radha Mojica LPN on behalf of: Ze Pan DO documented in this encounter [facility] 05-30-2024 History of Presen t illness Narrative Reason for Appointment: Patient ID: Ana Cruz is a 53 y.o. female who presents [...] nursing note reviewed. Exam conducted with a gem technician present. Vitals: Estimated body mass index [...] Ze Pan DO documented in this encounter [facility] 03-13-2024 History of Presen t illness Narrative Reason for Appointment: Patient ID: Ana Cruz is a 53 y.o. female who presents [...] nursing note reviewed. Exam conducted with a gem technician present. Vitals: Estimated body mass index [...] Ze Pan DO documented in this encounter [facility] 04-20-2023 Evaluation note Encounter Date Diagnosis Assessment Notes Apr, S/P total left hip arthroplasty (ICD-10 - Z96.642) Apr, Aftercare following joint replacement surgery (ICD-10 - Z47.1) Apr, Presence of left artificial hip joint (ICD-10 - Z96.642) Apr, Other [facility] at [facility] on 01/31/2023 Overall she is [...] to call with any questions or concerns. [employer] Other 11-16-2023 Evaluation note* Encounter Date Diagnosis [...] weeks with x-rays of the left hip. [employer] Other 11-01-2023 Evaluation note* Encounter Date Diagnosis Assessment Notes Treatment Notes Treatment Clinical Notes Feb, S/P total left hip arthroplasty (ICD-10 - Z96.642) Feb, Aftercare following joint replacement surgery (ICD-10 - Z47.1) Feb, Presence of left artificial hip joint (ICD-10 - Z96.642) Feb, Other [facility] at [facility] on 01/31/2023 Overall patient is doing [...] off narcotic pain medication. They can take dmio-lhc-[id number] anti-inflammatories as needed for assistance with swelling [...] examination and x-rays of the left hip. [employer] Other 10-26-2023 Evaluation note* Encounter Date Diagnosis [...] to help calm down this allergic reaction. [employer] Other 10-12-2023 Evaluation note* Encounter Date Diagnosis Assessment Notes Treatment Notes Treatment Clinical Notes Jan, Primary osteoarthritis of left hip (ICD-10 - M16.12) Jan, Age-related osteoporosis without current pathological fracture (ICD-10 - M81.0) Jan, Other residential (current) drug therapy (ICD-10 - Z79.899) Jan, Other 1. Left JILLIAN Home Medications - DVT prophylaxis: Aspirin - NSAID: Celebrex - Disposition: Same-day discharge Joints Meeting Checklist - Pharmacy: [facility] to bed - Approach/Technique: anterior, [place] bed - Implants: [employer] Complete/G7; - Anesthesia: general vs spinal - Blocks: Fascia iliaca - Preop Antibiotics: Ancef - TXA: yes-systemic - Positioning/OR Bed: supine on [place] bed - Intraop X-ray: yes - [...] above surgery. OARRS report generated and reviewed. [employer] Other 10-06-2023 Evaluation note* Encounter Date Diagnosis [...] patient could proceed with surgery safely. The database manager was vital for surgery timing and [...] plans. Prolonged services time spent: 32 minutes [employer] Other 08-31-2023 Evaluation note* Encounter Date Diagnosis [...] note writ ten by Nino Reese MA, Long Chain Quiller Tender. Edited and approved by Dr. Sawyer Greer MD. [employer] Other 08-31-2023 Evaluation note* Encounter Date Diagnosis Assessment Notes Treatment Notes Treatment Clinical Notes Nov, Osteoarthritis of left hip (ICD-10 - M16.12) [employer] Other 05-09-2023 Evaluation note* Encounter Date Diagnosis [...] note writ ten by Jcarlos Jovel LPN, Long Chain Quiller Tender. Edited and approved by Dr. Sawyer Greer MD. [employer] Other 04-19-2023 Evaluation note* Encounter Date Diagnosis [...] note writ ten by Jcarlos Jovel LPN, Long Chain Quiller Tender. Edited and approved by Dr. Sawyer Greer MD. [employer] Other 03-20-2023 Evaluation note* Encounter Date Diagnosis [...] note writ ten by Jcarlos Jovel LPN, Long Chain Quiller Tender. Edited and approved by Dr. Sawyer Greer MD. [employer] Other 11-08-2022 Evaluation note* Encounter Date Diagnosis [...] note writ ten by Nino Reese MA, Long Chain Quiller Tender. Edited and approved by Dr. Sawyer Greer MD. [employer] Other 10-17-2022 Evaluation note* Encounter Date Diagnosis [...] note writ ten by Jcarlos Jovel LPN, Long Chain Quiller Tender. Edited and approved by Dr. Sawyer Greer [...] negative findings were considered in medical decision-making. [employer] Other 10-11-2022 Evaluation note* Encounter Date Diagnosis [...] be able to perform normal work duties. [employer] Other 02-23-2022 NoteChief Complaint consultation for right inguinal hernia HPI Staff 50 year old female presents on consultation from Dr. Garza for right inguinal hernia. Reports she awoke [...] 06/10/2021 Family History ALS (more content not included)...[facility] Result Comment: Electronically Signed By: KHANG BARTH, Jerry aWrren\Date and Time Signed: 06/10/21 16:23 [id number] Hospital Discharge instructions* Instructions* Nemo Calixto APRN [...] drive until follow up 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 to work when [...] from home with family who presents to [facility] with the above deficits which impact [...] 16 minutes Electronically signed by: STEWART Kim/Krysta, OTR/Krysta 11/19/2020, 10:42 AM * Archana Chadwick PT - 11/19/2020 9:49 AM EDT Physical Therapy Med Surg Initial Assessment Facility/Department: [address] NE[facility] NAME: Ana Cruz : 1970 (49 y.o.) CODE STATUS: Full [...] Ambulation Assistance: Independent Transfer Assistance: Independent Active Stretcher Operator: Yes Occupation: Unemployed 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 Phone: 1(466) 523-688108-03-2021 NoteIntraprocedural fluoroscopic support has been provided. Please refer to the procedure report.[employer] Phone: 1(148) 758-246108-03-2021 NoteEXAMINATION: FLUORO FOR SURGICAL PROCEDURES CLINICAL HISTORY: R52 Pain ICD10 COMPARISONS: None available. FINDINGS: Fluoroscopic assistance was provided during ACDF, C5-6 and C6-7 The total radiationtime is 31.9 seconds, radiation dose is 3.62mGy.[employer] Phone: [phone]) 387-495108-03-2021 NoteEXAMINATION: FLUORO FOR SURGICAL PROCEDURES CLINICAL HISTORY: R52 Pain ICD10 COMPARISONS: None available. FINDINGS: Fluoroscopic assistance was provided during ACDF, C5-6 and C6-7 The total radiation time is 31.9 seconds, radiation dose is 3.62mGy. IMPRESSION: Intraprocedural fluoroscopic support has been provided. Please refer to the procedure report. Interpreted by: Leandro Spaulding MD Signed by: Leandro Spaulding MD 11/18/20 Final resultTelluride [facility] CenterEvaluation + Plan note Future Appointments Appointment Date:07/24/2021 01:20:00 PM Scheduled Provider:Jerry QUIÑONEZ MD Location:[facility] Appointment Type: Post Op 15 General Surgery [place] Evaluation note* Diagnosis Cervical spondylosis with myelopathy Cervical stenosis of spine Spinal stenosis in cervical region Cervical radiculopathy Brachial neuritis or radiculitis nos documented in this encounter [employer] Work Phone: evalzixics note* Diagnosis Post-op pain- Primary Other acute postoperative pain Pain Generalized pain Muscle spasm Spasm of muscle Cervical cord compression with myelopathy (HCC) Unspecified disease of spinal cord documented in this encounter [employer] Phone: evaletqhkj note* Diagnosis Pain Generalized pain documented in this encounter [employer] Phone: evaluation noteNo InformationNort [employer] Other Evaluation noteNo assessment information available [facility] Work Phone: Evaluation note* Diagnosis Onset Date Resolution Status Aftercare following left hip joint replacement surgery acute [facility] Work Phone: Evaluation note* Diagnosis Well woman exam with routine gynecological exam Routine gynecological examination Encounter for screening mammogram for malignant neoplasm of breast Asymptomatic menopausal state Dyspareunia in female [facility] Diagnosis Dyspareunia in female [facility]* Diagnosis Postmenopausal HRT (hormone replacement therapy) Need for prophylactic hormone replacement therapy (postmenopausal) Hot flashes Night sweats Generalized hyperhidrosis documented [facility]* Diagnosis Encounter for weight management Postmenopausal HRT (hormone replacement therapy) Need for prophylactic hormone replacement therapy (postmenopausal) Hot flashes Night sweats Generalized hyperhidrosis Dyspareunia in female documented [facility] this encounter [facility] Narrative - Reported* Type Description Date Medical History Arthritis Medical History high cholesterol Medical History migraine headache Medical History chronic depression Medical History anxiety Surgical History C section Surgical History hernia repair Surgical History hysterectomy Surgical History neck biopsy Hospitalization History see surgical [employer] Other History general Narrative - Reported* Type Description Date Medical History Arthritis Medical History high cholesterol Medical History migraine headache Medical History chronic depression Medical History anxiety Surgical History C section Surgical History hernia repair Surgical History hysterectomy Surgical History neck biopsy Surgical History LTHA 01/31/2023 Hospitalization History see surgical hx [employer] Other Hospital course Narrative No data available for this section General Surgery [employer] Hospital Discharge instructions* Attachments The following attachments cannot be sent through Care Everywhere. * Sedation: General Info (Hungarian) [facility] this [facility] Work Phone: Hospital Discharge instructions No data available for this section General Surgery [employer] Hospital Discharge instructions Additional Instructions Joint Replacement Discharge Instructions Your safety during your recovery process is important to us. Please seek immediate emergency care if you have sudden chest pain or shortness of breath. Additionally, please call our office at [phone] should any of the following occur: wound [...] until you see me in the office. Marilin This is a no contact dressing that [...] to walk without your walker and your animal care supervisor until the therapist checks you the following [...] and/or laxatives as directed. You may take udkk-woz-aiemrou Benadryl if itching occurs without a rash or hives. Icing and elevation will help relieve pain as well, do not underestimate the power of ice and elevation. We do recommend that you stop taking narcotic pain medications by 4-6 weeks after surgery and if necessary, continue to use anti-inflammatory medications such as Mobic (meloxicam), Celebrex (celecoxib), or an bdca-lfn-tnbcohb medication (Aleve, Motrin, Ibuprofen, etc). Driving an [...] feel free to call our office at [phone]. You are a priority of ours and we will not be upset with you if you call. We would much rather you call to confirm aspects of your recovery process as opposed to possibly hindering your recovery with inappropriate care. We are committed to providing you with the best care possible. Edison Veronica II, MD Updated 07/02/2022[facility] Work Phone: Reason for referral (narrative)No reason for referral information availableSumma Health [facility] Campus Work Phone: Reason for Referral Status Reason Specialty Diagnoses / Procedures Referre d By Contact Referred To Contact Closed Radiology Diagnoses Cervical spondylosis with myelopathy Cervical stenosis of spine Cervical radiculopathy Procedures MRI CERVICAL SPINE WO CONTRAST Mejia Griffin MD [address] [facility] [address] [place] [address] Status Reason Specialty Diagnoses / Procedures Referre d By Contact Referred To Contact Closed Radiology Diagnoses Pain Procedures Fluoro For Surgical Procedures Mejia Griffin MD [address] [place] [address] Reason *Waiting for appt Evaluate and Treat Sacroiliac and Trochanteric Bursitis L Hip Diagnosis 1 Inflammation of left sacroiliac joint (M46.1) Diagnosis 2 Greater trochanteric bursitis of left hip (M70.62) Referral Organization [facility] uros[facility]gery Referring Provider First Name Santiago Referring Provider Last Name Jerome Referring Provider Specialty Neurologica l Surgery Referred Organization [facility] Pain Managemen t Bone [place] Referred Provider Sawyer Greer Referred Address [address] [facility] [place],[address] Referred Provider Specialty Pain Medicin e Referral Priority Routine General Notes Nisa Zelaya 022 10:44:35 AM >Received today and sent P2P Reason severe left hip/ helen in/ thigh pain Diagnosis 1 Osteoarthritis of le ft hip (M16.12) Referral Organization [facility] Pain Managemen t Bone [place] Referring Provider First Name Sawyer Referring Provider Last Name Zoey Referring Provider Specialty Pain Medici ne Referred Organization [facility] [place] [facility] Referred Provider Edison Veronica II Referred Address [address] [facility] [place],[address] Referred Provider Specialty Orthopedic S urgery Referral [...] Aftercare following left hip joint replacement surgery Chief Complaint Admit Date Thyroid Nodules October 25, 2024 7:57 am Additional Source Comments Reason for Visit (unrecogniz ed section and content) Status Reason Specialty Diagnoses / Procedures Referre d By Contact Referred To Contact Closed Radiology Diagnoses Cervical spondylosis with myelopathy Cervical stenosis of spine Cervical radiculopathy Procedures MRI CERVICAL SPINE WO CONTRAST Mejia Griffin MD [address] [facility] [address] [place] [address] Status Reason Specialty Diagnoses / Procedures Re ferred By Contact Referred To Contact Diagnoses Cervical stenosis (uterine cervix) Cervical radiculopathy Spondylosis Cord compression (HCC) STENOSIS, RADICULOPATHY, SPONDYLOSIS, CORD COMPRESSION Procedures NH SPINAL FUSION,ANT,EA ADNL LEVEL NH LUMB SP FUSN,POST INTERBDY,EA ADDNL NH ARTHRODESIS ANT INTERBODY INC DISCECTOMY, CERVICAL BELOW C2 NH C-LAMINOPLASTY W/GRAFT/PLATE, 2 OR MORE ANTERIOR INSTRUMENTATION 2-3 VERTEBRAL SEGMENTS NH ALLOGRAFT FOR SPINE SURGERY ONLY STRUCTURAL NH ARTHRODESIS ANT INTERBODY INC DISCECTOMY CERVICAL BELOW C2 EA ADDL A.C.D.F (ANTERIOR CERVICAL DISKECTOMY FUSION) C5-6 C6-7 WITH POSTERIOR DECOMPRESSION LAMINOPLASTY SPANNING FROM C3-4-5-6/ 2 HRS/ 1 C-ARM. NUVASIVE/ S.S.E.P, PAT AT [facility] Mejia Griffin MD [address] [facility] [address] [place] [address] [facility] Reason Comments Gynecologic Exam Reason Comments Follow-up Pt present today for a f/up visit for medication Estrace. Reason Comments hormone replacement Reason Comments Follow-up Weight Management INFORMATION SOURCE (unrecogn ized section and content) DATE CREATED AUTHOR 11/09/2020 [facility] DATE CREATED AUTHOR AUTHOR'S ORGANIZ ATION 11/22/2020 [facility] [place] DATE CREATED AUTHOR AUTHOR'S ORGANIZ ATION 08/16/2021 [facility] DATE CREATED AUTHOR AUTHOR'S ORGANIZ ATION 09/24/2022 [facility] DATE CREATED AUTHOR AUTHOR'S ORGANIZ ATION 10/29/2024 [facility] Ordered Prescriptions (unrec ognized section [...] 100 mL IVPB (COMPLETED) 2,000 mg, Intravenous, PERSONAL CARE AID TO O.R., 1 dose, On Tue11/18/20 at [...] Ekaterina Stone LPN)1307 (Given - Provider: Ro Cardona, DEV)2200 (Due) losartan (COZAAR) tablet 25 mg 25 [...] Entry - Provider: Joe Mantilla APRN - IMAGER)1447 (Stopped - Provider: Joe Mantilla APRN - IMAGER)1544 (New Bag - Provider: Juliane Alonso RN) [...] Cardona, DEV)1459 (Given - Provider: Ro Cardona, RN) promethazine (PHENERGAN) tablet 12.5 mg(Linked Group [...] Status: Active Member Role Status Dates Gina Garza MD Primary Care Provider Active Team Status: Inactive Member Role Status Dates Gina Garza MD Primary Care Provider Active Sawyer Greer MD Attending Provider Active Team Status: Inactive Member Role Status Dates Gina Garza MD Primary Care Provider Active Edison Veronica II, MD Attending Provider Active Team Status: Inactive Member Role Status Dates Gina Garza MD Primary Care Provider Active Start: February 02, 2024 End: February 02, 2024 Edison Veronica II, MD Attending Provider Active Start: February 02, 2024 End: February 02, 2024 Team Status: Active Member Role Status Dates Gina Garza MD Primary Care Provider Active Start: February 02, 2024 Edison Veronica II, MD Attending Provider Active Start: February 02, 2024 [employer] Company Driver Relationship Specialty Start Date End Date Gina Garza MD [address] [place] [facility] [place] [address] PCP - General Family Medicine 05/30/24 [employer] Company Driver Relationship Specialty Start Date End Date Gina Garza MD [address] [place] [facility] [place] [address] PCP - General Family Medicine 05/30/24 Team Status: Inactive Member Role Status Dates Gina Garza MD Primary Care Provider Active Start: October 25, 2024 End: October 25, 2024 Gina Garza MD Attending Provider Active Sta rt: October 25, 2024 End: October 25, 2024 [employer] Driver Relationship Specialty Start Date End Date Gina Garza MD [address] [place] [address] PCP - General Family Medicine 05/30/24 [employer] Company Driver Relationship Specialty Start Date End Date Gina Garza MD [address] [place] [facility] [place] [address] PCP - General Family Medicine 05/30/24 [employer] Company Driver Relationship Specialty Start Date End Date Gina Garza MD [address] [place] [facility] [place] [address] PCP - General Family Medicine 05/30/24 Goals [...] BE BASED ON THE PRIMARY CLINICAL RECORDS. [employer] [facility]. provides no warranty or guarantee of the accuracy or completeness of information in this document.
== END 2025-01-21 16:43 | disposition home or self-care (01) ==
LOC: US 16:42
PROVIDERS: PCP Family Medicine; Visit Provider Family Medicine
DX: E04.1 Nontoxic single thyroid nodule (principal)
CPT/HCPCS: 76536

== ENCOUNTER 2025-02-01 06:55 | Outpatient (OUT) | payer BC, SELFPAY ==
--- OUTSIDE RECORDS SUMMARY | 2024-05-11 05:50 | XMS_ITS | Continuity of Care Document ---
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 Role Phone Rebeka BARTH, Bar Unavailable [...] Sep Procedure May Ozurdex 0.7mg Intravitreal Implant May-0 Intravitreal Inj Agent Sep Procedure May OCT Retina Ozurdex 0.7mg Intravitreal Implant Offic/outpt E&m Estab Mod-mt OCT Retina Offic/outpt E&m Estab [facility] Intravitreal Inj Agent Sep Procedure Dec OCT Retina Triamcinolone Acetonide/10 Mg 3 Offic/outpt E&m Estab [facility]-mt Fluorescein Angiography W/i&r 3 Fundus Photography W/i&r Offic/outpt E&m Estab [facility] Offic/outpt E&m Estab [facility] Gonioscopy Both Eyes Ophth Ultrasound Echo Dx; Cont 21 Offic/outpt E&m Estab [facility] Ophth Ultrasound Echo Dx; Cont 20 Offic/outpt E&m Estab [facility] Outpt E&m Estab Low-mod 9 Intravitreal Inj Agent Sep Procedure Jan Offic Outpt E&m Estab Low-mod 9 Inj Therap Agent [employer]apsu 19 Ophth Ultrasound Echo Dx; Cont [address] [facility] Advance Directives Directive Yes / No Effective [...] Providers Copied on Encounter Offic/outpt E&m Estab [facility], [address] [facility], [place], [place], [id number] , [place] [phone] [facility] [place] retina (chief complaint) Choroiditis of both eyesChronic anterior uveitis of right eyeScleritis of right eyeVitreous floaters of both eyesVitreous syneresis of left eyeAge-related nuclear cataract, left eyeOther secondary cataract, right eye 5 [facility]. [address], [place], [address], [place]. tel: [phone] Referring Provider: Joe Robert, [address] [facility], [place], [address]. tel:[phone] [facility], [address], [place], [place], [id number] , [place] tel: [phone] [facility] [place] No Information 4 [facility]. [address], [place], [address], [place]. tel: [phone] Referring Provider: Joe Robert, [address] [facility], [place], [address]. tel:[phone] [facility], [address], [place], [place], [id number] , [place] tel: [phone] [facility] [place] No Information 4 [address]. [address] [facility], [place], [address], [place]. tel: [phone] [facility], [address] [facility], [place], [place], [id number] , [place] tel: [phone] [facility] [place] retina (chief complaint) Choriodoretinitis, rightChoriodoretiniti s, leftChoroiditis of both eyes 4 [facility] [address]. [address] [facility], [place], [address], [place]. tel: [phone] Referring Provider: Joe Robert, [address] [facility], [place], [address]. tel:[phone] [facility], [address], [place], [place], [id number] , [place] tel: [phone] [facility] [place] retina (chief complaint) Right posterior uveitisChoroiditis of both eyes 4 [facility] [address]. [address], [place], [address], [place]. tel:[phone] Referring Provider: Joe Robert, [address] [facility], [place], [address]. tel:[phone] Offic/outpt E&m Estab Mod-hi [facility], [address], [place], [place], [id number] , [place] tel:[phone] [facility] IMT follow up (chief complaint) Chronic anterior uveitis of right eyeScleritis of right eyeVitreous floaters of both eyesVitreous syneresis of left eyeAge-related nuclear cataract, left eyeOther secondary cataract, right eyeChoroiditis of both eyes Dec-0 3 [facility]. [address], [place], [address], [place]. tel:[phone] Referring Provider: Joe Robert, [address] [facility], [place], [address]. tel:[phone] Offic/outpt E&m Estab Mod-[facility], [address], [place], [place], [id number] , [place] tel:[phone] [facility] IMT follow up (chief complaint) Chronic anterior uveitis of right eyeScleritis of right eyeVitreous floaters of both eyesVitreous syneresis of left eyeAge-related nuclear cataract, left eyeOther secondary cataract, right eye Oct-2 3 [facility]. [address], [place], [address], [place]. tel:[phone] Referring Provider: Joe Robert, [address] [facility], [place], [address]. tel:[phone] Offic/outpt E&m Estab Mod-[facility], [address], [place], [place], [id number] , [place] [phone] [facility] retina (chief complaint) Chronic anterior uveitis of right eyeScleritis of right eyeAngle-closure glaucoma of both eyesVitreous syneresis of left eyeNuclear senile cataract of both eyes Sep-2 3 [facility] [address]. [address], [place], [address], [place]. tel:[phone] Referring Provider: Joe Robert, [address] [facility], [place], [address]. tel:[phone] Offic/outpt E&m Estab Mod-[facility], [address] [facility], [place], [place], [id number] , [place] tel:[phone] [facility] FA OS>OD/foll ow up and OCT (chief complaint) Chronic uveitis of both eyesChronic anterior uveitis of right eyeScleritis of right eyeACG (angle-closure glaucoma), stage unspecifiedVitreous syneresis, left Mar-3 3 [facility]. [address] [facility], [place], [address], [place]. tel:[phone] Referring Provider: Bar Treadwell, [address] [facility], [place], [address]. tel:[phone] Offic/outpt E&m Estab Mod-[facility], [address] [facility], [place], [place], [id number] , [place] tel:[phone] [facility] blurry vision (chief complaint) Chronic iridocyclitis, right eyeUnspecified scleritis, right eyeUnsp primary angle-closure glaucoma, stage unspecifiedOther vitreous opacities, left eyeAge-related nuclear cataract, bilateral Mar-0 2 Manuel Douglas. [address] [facility], [place], [place], [id number] , [place]. tel:[phone] Referring Provider: Joe Robert, [address] [facility], [place], [address]. tel:[phone] Offic/outpt E&m Estab Mod-[facility], [address] [facility], [place], [place], [id number] , [place] [phone] [facility] blurry vision (chief complaint) Unsp primary angle-closure glaucoma, stage unspecifiedUnspecifie d scleritis, right eyeChronic iridocyclitis, right eyeOther vitreous opacities, left eyeAge-related nuclear cataract, bilateral Apr-3 0-202 1 [facility]. [address] [facility], [place], [address], [place]. [phone] Specialist : Ronal Garner MD, [address] [facility], [place], [address]. [phone] erring Provider: Joe Robert, [address] [facility], [place], [address]. tel:[phone] Offic/outpt E&m Estab Mod-hi [facility], [address] [facility], [place], [place], [id number] , [place] tel:[phone] [facility] [place] pain and redness (chief complaint) Unspecified scleritis, right eyeChronic iridocyclitis, right eyeOther vitreous opacities, left eyeAge-related nuclear cataract, bilateral Gunner-0 3-202 0 [facility]. [address] [facility], [place], [address], [place]. tel:[phone] Referring Provider: Joe Robert, [address] [facility], [place], [address]. tel:[phone] Offic/outpt E&m Estab Mod-hi [facility], [address] [facility], [place], [place], [id number] , [place] [phone] [facility] [place] pain and redness (chief complaint) Unspecified scleritis, right eyeChronic iridocyclitis, right eyeOther vitreous opacities, left eye 201 9 Maria Esther Rangel . [address] [place], [place], [id number] , [place]. tel:[phone] Referring Provider: Joe Robert, [address] [facility], [place], [address]. tel:[phone] Offic Outpt E&m Estab Low-mod [facility], [address] [facility], [place], [place], [id number] , [place] [phone] [facility] [place] Painful. red eye (chief complaint) Chronic iridocyclitis, right eyeOther vitreous opacities, left eyeAge-related nuclear cataract, bilateral Nov-0 9 Maria Esther Rangel . [address], [place], [place], [id number] , [place]. [phone] Referring Provider: Joe Robert, [address] [facility], [place], [address]. tel:[phone] Offic Outpt E&m Estab Low-mod [facility], [address] [facility], [place], [place], [id number] , [place] tel:[phone] [facility] [place] pain (chief complaint) Chronic uveitis of right eyeOther vitreous opacities, left eyeAge-related nuclear cataract, bilateral Oct-0 9 Maria Esther Rangel . [address] [facility], [place], [place], [id number] , [place]. tel:[phone] Referring Provider: Joe Robert, [address] [facility], [place], [address]. tel:[phone] [facility], [address] [facility], [place], [place], [id number] , [place] [phone] [facility] [place] blurred vision and pain (chief complaint) Chronic anterior uveitis of right eye Sep-0 9 Maria Esther Rangel . [address] [facility], [place], [place], [id number] , [place]. [phone] Referring Provider: Joe Robert, [address] [facility], [place], [address]. tel:[phone] Offic Cons New Estab Mod Hi [facility], [address], [place], [place], [id number] , [place] [phone] [facility] [place] blurry vision (chief complaint) Chronic iridocyclitis, right eyeOther vitreous opacities, left eyeAge-related nuclear cataract, bilateral Aug-2 9 Maria Esther Rangel . [address] [facility], [place], [place], [id number] , [place]. [phone] Referring Provider: Joe Robert, [address] [facility], [place], [address]. tel:[phone] Family History Family Member Type Diagnosis Age At Onset Father Problem (finding) Diabetes mellitus Father Problem (finding) Arthritis Maternal grandfather Problem (finding) Arthritis Mother Problem (finding) hypertension Mother Problem (finding) Arthritis Maternal grandmother Problem (finding) Arthritis Sister Problem (finding) Non-Hodgkin's lymphoma Payers Payer name Insurance type Covered green party ID Gertrudis roberson(s) [facility] [id number] Social History Type Description Quantity Date Captured Comments Alcohol Use Details No Caffeine Use Details 6 cups per day Tobacco Use Status Heavy cigarette smok er (20-39 cigs/day) Smoking Status Heavy tobacco smoker Smoking Tobacco Use Details Cigarette: No Details Available Cigarette: 1 Packs per day Sex Female Chief Complaint And Reason For Visit From [...] in OD off and on. Went to [facility] on Tuesday and the doctor increased timolol [...] a day in both eyesContinue care with [facility]. Patient had the opportunity to ask questions [...] .Diagnosis: Angle-closure glaucoma of both eyes. Cod Mar-31-2023 Impression/Plan - Retina is stable o n [...] Chronic anterior uveitis of right eye - Hold on cataract s urgery till [...] left eyeNuclear sclerosis of both eyes - 2 wks STK OD Related to [...]
--- OUTSIDE RECORDS SUMMARY | 2025-01-22 12:45 | XMS_ITS ---
Author Organization [facility] [place] Address [address] [place] [address] Care Team Providers Care Control Systems Technician Name Role Phone Alexander Javier Primary Care Provider [phone] REASON FOR VISIT Bx- Encounters Encounter Location Date Provider Diagnosis [facility] [address] [place] [address] 01/22/2025 Alexander Javier Thyroid nodule E04.1 Assessments Encounter Date Diagnosis (ICD Code) Assessment Notes Treatment Notes Treatment Clinical Notes Section Notes 01/22/2025 Thyroid nodule (ICD-10 - E04.1) Plan Of Treatment No Information Progress Notes * Melony PALMER MDOB:1970 ([age] yo F)Acc No.[id number]:01/22/2025 Patient: Melony SYLVESTER :1970 A ge:54 Y S ex:Female Address:[address] [place] [phone] Subjective: * Chief Complaints: * B x- * Medical History: * Surgical History: * Hospitalization/Major Diagno stic Procedure: * Medications: Objective: * Vitals: * Physical Examination: Assessment: * Assessment: 1. T hyroid nodule - E04.1 (Primary) Plan: * Treatment: * Procedure Codes: * true * Date: Generated for Printi ng/Faxing/eTransmitting on: 06:58 AM EDT
--- OUTSIDE RECORDS SUMMARY | 2025-02-01 06:59 | XMS_ITS | Encounter Summary ---
Author Organization [facility] Address [address] [facility] [place] [address] Care Team Providers Care Ball Worker Name Role Phone Tj Javier MD Primary Care Provider [phone] Encounter Details Date Type Department Care Team (Late st Contact Info) Description 04/30/2024 Clinisync Result Encounter [facility] External Department Unsolicited Ze Pan, DO [address] [place], [place] [id number] Social History Tobacco Use Types Packs/Day Years Used Date Smoking Tobacco: Never Assessed Comments No Sex and Gender Information Value Date Recorded Sex Assigned at Not on file Legal Sex Female 8:05 PM EDT Gender Identity Not on file Sexual Orientation Not on file documented as of this encounter Plan of Treatment Upcoming Encounters Date Type Department Care Team (Late st Contact Info) Description 02/04/2025 3:20 PM EDT Office Visit [facility] [place] [phone] Ze Pan, DO [address] [place], [place] [id number] 03/19/2025 8:30 AM EST Office Visit [facility] EPPERSON [address] [place] [phone] Ze Pan DO [address] [place] [address] documented as of this encounter Procedures Procedure Name Priority Date/Time Associated Diagnosis Comments MM TOMOSYNTHESIS SCREENING BI 04/30/2024 9:05 AM EST documented in this encounter Results * MM TOMOSYNTHESIS SCREENING BI (04/30/2024 9:05 AM EST) Anatomical Region Laterality Modality Other 04/30/2024 9:05 AM EST Narrative 04/30/2024 9:07 [place] [address] Mammography Report Signed Patient: ANA PALMER MR#: [id number] : 1970 Acct:[id number] Age/Sex: 53 / F ADM Date: 04/30/24 Loc: MAMMO Attending Dr: Ze Pan D.O. Ordering Physician: Ze Pan D.O. Results: Date of Service: 04/30/24 Follow Up: Procedure(s): MM tomosynthesis screening BI Accession Number(s): [id number] cc: Ze Pan D.O.; Tj Javier M.D. Patient Name: ANA PALMER MR#: [id number] : 1970 Exam Date: 04/30/2024 Ordering Doctor: DR Ze Pan . RADIOLOGY REPORT PROCEDURE: MM TOMOSYNTHESIS SCREENING BI COMPARISON: MG MAMM SCREEN 3D ADALBERTO CAD, 11/17/2020. MG MAMM SCREEN 3D ADALBERTO CAD, 09/09/2022. INDICATIONS: screening for malignant neoplasm of breast Calculator Name NCI Breast Cancer Risk Assessment Tool 5 Year Breast Cancer Risk 1.00% Lifetime Breast Cancer Risk 7.20% Personal Breast Cancer No Personal Ovarian Cancer No Treatments None Family Cancers Son with aml cancer at age 25. LOCATION: [facility] BREAST COMPOSITION: The breasts are heterogeneously dense,which may obscure small masses. FINDINGS: DIAGNOSTIC CATEGORY 2--BENIGN FINDING. NO CHANGE FROM COMPARISON. Scattered benign-appearing nodules are present. Scattered benign-appearing calcifications are present. Scattered benign-appearing lymph nodes are present. RIGHT BREAST: No significant suspicious finding. LEFT BREAST: No significant suspicious finding. RECOMMENDATIONS: ROUTINE MAMMOGRAM AND CLINICAL EVALUATION IN 12 MONTHS. PLEASE NOTE: A NORMAL MAMMOGRAM DOES NOT EXCLUDE THE POSSIBILITY OF BREAST CANCER. A CLINICALLY SUSPICIOUS PALPABLE LUMP SHOULD BE BIOPSIED. Dictated by: Clifton Ponce MD on 04/30/2024 at 09:02 Approved by: Clifton Ponce MD on 04/30/2024 at 09:05 Dictated By: Clifton Ponce M.D. Signed By: 04/30/24906 DD/ 4 TD/TT: Nurse Emergency Room: Procedure Note Radiology, Radiologist, MD - 04/30/2024 The [place] [id number] Mammography Report Signed Patient: ANA PALMER MMR#: [id number] : 1970Acct:[id number] Age/Sex: 53 / FADM Date: 04/30/24 Loc: MAMMO Attending Dr: Ze Pan D.O. Ordering Physician: Ze Pan D.O.Results: Date of Service: 04/30/24Follow Up: Procedure(s): MM tomosynthesis screening BI Accession Number(s): [id number] cc: Ze Pan D.O.; Tj Javier M.D. Patient Name: ANA PALMER MR#: [id number] : 1970 Exam Date: 04/30/2024 Ordering Doctor: DR Ze Pan . RADIOLOGY REPORT PROCEDURE: MM TOMOSYNTHESIS SCREENING BI COMPARISON: MG MAMM SCREEN 3D ADALBERTO CAD, 11/17/2020. MG MAMM SCREEN 3DBIL CAD, 09/09/2022. INDICATIONS: screening for malignant neoplasm of breast Calculator Name NCI Breast Cancer Risk Assessment Tool 5 Year Breast Cancer Risk 1.00% Lifetime Breast Cancer Risk 7.20% Personal Breast Cancer No Personal Ovarian Cancer No Treatments None Family Cancers Son with aml cancer at age 25. LOCATION: [facility] BREAST COMPOSITION: The breasts are heterogeneously dense,which may obscure small masses. FINDINGS: DIAGNOSTIC CATEGORY 2--BENIGN FINDING. NO CHANGE FROM COMPARISON. Scattered benign-appearing nodules are present. Scatteredbenign-appearing calcifications are present. Scattered benign-appearing lymph nodes are present. RIGHT BREAST: No significant suspicious finding. LEFT BREAST: No significant suspicious finding. RECOMMENDATIONS: ROUTINE MAMMOGRAM AND CLINICAL EVALUATION IN 12 MONTHS. PLEASE NOTE: A NORMAL MAMMOGRAM DOES NOT EXCLUDE THE POSSIBILITY OFBREAST CANCER. A CLINICALLY SUSPICIOUS PALPABLE LUMP SHOULD BE BIOPSIED. Dictated by: Clifton Ponce MD on 04/30/2024 at 09:02 Approved by: Clifton Ponce MD on 04/30/2024 at 09:05 Dictated By: Clifton Ponce M.D. Signed By:04/30/24906 DD/ 4 TD/TT: Nurse Emergency Room: [facility] Viviane DO [facility] Final Result documented in this encounter Visit Diagnoses Not on filedocumented in this encounter Care Teams Ball Worker Relationship Specialty Start Date End Date Tj Javier MD [address] [place] [address] PCP - General Family Medicine 05/30/24 documented as of this encounter
--- OUTSIDE RECORDS SUMMARY | 2025-02-01 06:59 | XMS_ITS | Encounter Summary ---
Author Organization [facility] Address [address] [place] [facility] [place] [address] Care Team Providers Care Equipment Application Specialist Name Role Phone Tj Javier MD Primary Care Provider [phone] Encounter Details Date Type Department Care Team (Late st Contact Info) Description 04/03/2024 Orders Only [facility] [place] [phone] Amber San MA [facility] [place] [address] Social History Tobacco Use Types Packs/Day Years [...] 3:20 PM EDT Office Visit MEL[facility] EPPERSON [facility] [place] [phone] Ze Pan, DO [address] [place] [address] 03/19/2025 8:30 AM EST Office Visit [facility]EL[facility] EPPERSON [facility] [place] [phone] Ze Pan, DO [address] [place] [address] documented as of this encounter Procedures Procedure Name Priority Date/Time Associated Diagnosis Comments PAP SMEAR Routine 03/13/2024 12:00 AM EST documented in this encounter Results * Pap Smear (03/13/2024 12:00 AM EST) Swab Cervical swab / Unknown us Ze Viviane DO LAB CYTOLOGY ORDERABLES Final Re sult EXTERNAL LAB documented in this encounter Visit Diagnoses Not on filedocumented in this encounter Care Teams Equipment Application Specialist Relationship Specialty Start Date End Date Tj Javier MD [address] [place] [address] PCP - General Family Medicine 05/30/24 documented as of this encounter
--- OUTSIDE RECORDS SUMMARY | 2025-02-01 06:59 | XMS_ITS | Encounter Summary ---
Author Organization [facility] Address [address] [facility] [place] [address] Care Team Providers Care Student Officer Name Role Phone Tj Javier MD Primary Care Provider [phone] Encounter Details Date Type Department Care Team (Late st Contact Info) Description 03/13/2024 Abstract [facility] [place] [address] Ze Pan, DO [address] [place] [facility] Social History Tobacco Use Types Packs/Day Years [...] 3:20 PM EDT Office Visit MELIDA EPPERSON [facility] [place] [phone] Ze Pan, DO [address] [place], [place] [address] 03/19/2025 8:30 AM EST Office Visit MELIDA EPPERSON [facility] [place] [phone] Ze Pan, DO [address] [place], [facility] documented as of this encounter Visit Diagnoses Not on filedocumented in this encounter Care Teams Student Officer Relationship Specialty Start Date End Date Tj Javier MD [address] [place] [address] PCP - General Family Medicine 05/30/24 documented as of this encounter
--- OUTSIDE RECORDS SUMMARY | 2025-02-01 06:59 | XMS_ITS | Encounter Summary ---
Author Organization [facility] Address [address] [place] [address] Care Team Providers Care Professor Of Rhetoric Name Role Phone Tj Javier MD Primary Care Provider [phone] Encounter Details Date Type Department Care Team (Late st Contact Info) Description 04/30/2024 Clinisync Result Encounter [facility] Unsolicited Usman Pan, DO [address] [place], [place] [id number] Social History Tobacco Use Types Packs/Day Years [...] 3:20 PM EDT Office Visit MELIDA EPPERSON [facility] [place] [phone] Usman Pan, DO [address] [place], [place] [phone] 03/19/2025 8:30 AM EST Office Visit MELIDA EPPERSON [address] [place] [phone] Usman Pan DO [address] [place] [address] documented as of this encounter Procedures Procedure Name Priority Date/Time Associated Diagnosis Comments XR DEXA AXIAL SKELETON 04/30/2024 8:37 AM EST documented in this encounter Results * XR DEXA AXIAL SKELETON (04/30/2024 8:37 AM EST) Anatomical Region Laterality Modality Other 04/30/2024 8:37 AM EST Narrative 04/30/2024 8:39 [place] [address] XRay Report Signed Patient: ANA PALMER MR#: [id number] : 1970 Acct:[id number] Age/Sex: 53 / F ADM Date: 04/30/24 Loc: MAMMO Attending Dr: Usman Pan D.O. Ordering Physician: Usman Pan D.O. Date of Service: 04/30/24 Procedure(s): XR DEXA axial skeleton Accession Number(s): [id number] cc: Usman Pan D.O.; Tj Javier M.D. [address] [address] Patient Name: ANA PALMER MRN: [id number] date: 1970 Sex: F Assigned Patient Location: [facility] Current Patient Location: [facility] Accession/Order Number: [id number] Exam Date: 04/30/2024 07:35 Report Date: 04/30/2024 08:37 At the request of: USMAN PAN Procedure: XR DEXA axial skeleton EXAMINATION: XR DEXA axial skeleton, 04/30/2024 7:35 AM EST HISTORY: well women and post hysterectomy COMPARISON: None. TECHNIQUE: Dual-energy X-ray absorptiometry (DEXA) bone density study performed for the axial skeleton. FINDINGS: Bone mineral density of the AP spine L1-L4 measures 1.163 g/sq cm. T score -0.1. Normal Lowest bone density is in the right femoral neck measuring 0.773 g/sq cm. T score -1.9. Osteopenia XR/XR DEXA axial skeleton IMPRESSION: Osteopenia. Moderate fracture risk Pharmacologic treatment recommendations * No uniform recommendation applies to all patients. Management plans must be individualized. * Consider initiating pharmacologic treatment in postmenopausal women and men >= 50 years of age who have the following: Primary fracture prevention: * T-score <= - 2.5 at the femoral neck, total hip, lumbar spine, 33% radius (some uncertainty with existing data) by DXA. * Low bone mass (osteopenia: T-score between - 1.0 and - 2.5) at the femoral neck or total hip by DXA with a 10-year hip fracture risk >= 3% or a 10-year major osteoporosis-related fracture risk >= 20% (i.e., clinical vertebral, hip, forearm, or proximal humerus) based on the [place]-adapted FRAXregistered model. Secondary fracture prevention: * Fracture of the hip or vertebra regardless of BMD [4, 5]. * Fracture of proximal humerus, pelvis, or distal forearm in persons with low bone mass (osteopenia: T-score between - 1.0 and - 2.5). The decision to treat should be individualized in persons with a fracture of the proximal humerus, pelvis, or distal forearm who do not have osteopenia or low BMD [12, 13]. Prerna MS, Stephanie SL, Dayana KL, Delio EM, Rahel KG, AJ, Chandana ES. The clinician's guide to prevention and treatment of osteoporosis. Osteoporos Int. 2021;33(10):9305-1174. doi: 10.1007/z43334-722-78611-w. Epub 2021Aug 13. Erratum in: Osteoporos Int. 2021Nov 12;: PMID: 77130660; PMCID: [id number]. Electronically authenticated by: ALE GERBER Date: 04/30/2024 08:37 Dictated By: Ale Gerber M.D. Signed By: 04/30/24 0839 DD/ TD/TT: Shank Threader: Procedure Note Radiology, Radiologist, - 04/30/2024 [place] [address] XRay Report Signed Patient: ANA PALMER MMR#: [id number] : 1970Acct:[id number] Age/Sex: 53 / FADM Date: 04/30/24 Loc: MAMMO Attending Dr: Usman Pan D.O. Ordering Physician: Usman Pan D.O. Date of Service: 04/30/24 Procedure(s): XR DEXA axial skeleton Accession Number(s): [id number] cc: Usman Pan D.O.; Tj Javier M.D. [place] [id number] Patient Name: ANA PALMER MRN: [id number] date: 1970 Sex: F Assigned Patient Location: [facility] Current Patient Location: [facility] Accession/Order Number: [id number] Exam Date: 04/30/2024 07:35 Report Date: 04/30/2024 08:37 At the request of: USMAN PAN Procedure: XR DEXA axial skeleton EXAMINATION: XR DEXA axial skeleton, 04/30/2024 7:35 AM EST HISTORY: well women and post hysterectomy COMPARISON: None. TECHNIQUE: Dual-energy X-ray absorptiometry (DEXA) bone density study performed for the axial skeleton. FINDINGS: Bone mineral density of the AP spine L1-L4 measures 1.163 g/sq cm. T score -0.1. Normal Lowest bone density is in the right femoral neck measuring 0.773 g/sq cm.T score -1.9. Osteopenia XR/XR DEXA axial skeleton IMPRESSION: Osteopenia. Moderate fracture risk Pharmacologic treatment recommendations * No uniform recommendation applies to all patients. Management plans mustbe individualized. * Consider initiating pharmacologic treatment in postmenopausal women andmen >= 50 years of age who have the following: Primary fracture prevention: * T-score <= - 2.5 at the femoral neck, total hip, lumbar spine, 33%radius (some uncertainty with existing data) by DXA. * Low bone mass (osteopenia: T-score between - 1.0 and - 2.5) at thefemoral neck or total hip by DXA with a 10-year hip fracture risk >= 3% or [id number]-viov major osteoporosis-related fracture risk >= 20% (i.e., clinical vertebral, hip, forearm, or proximal humerus) based on the [place]-adapted FRAXregisteredmodel. Secondary fracture prevention: * Fracture of the hip or vertebra regardless of BMD [4, 5]. * Fracture of proximal humerus, pelvis, or distal forearm in persons withlow bone mass (osteopenia: T-score between - 1.0 and - 2.5). The decision totreat should be individualized in persons with a fracture of the proximalhumerus, pelvis, or distal forearm who do not have osteopenia or low BMD [12, 13]. Prerna MS, Stephanie SL, Dayana KL, Delio EM, Rahel KG, AJ,Chandana ES. The clinician's guide to prevention and treatment of osteoporosis.Osteoporos Int. 2021;33(10):2225-8443. doi: 10.1007/t32344-041-46926-l. Ep. Erratum in: Osteoporos Int. 2021Nov 12;: PMID: 92982407; PMCID: [id number]. Electronically authenticated by: ALE GERBER Date: 04/30/2024 08:37 Dictated By: Ale Gerber M.D. Signed By:04/30/24 0839 DD/ TD/TT: Shank Threader: [facility] Final Result documented in this encounter Visit Diagnoses Not on filedocumented in this encounter Care Teams Professor Of Rhetoric Relationship Specialty Start Date End Date Tj Javier MD [address] [place] [phone] PCP - General Family Medicine 05/30/24 documented as of this encounter
--- OUTSIDE RECORDS SUMMARY | 2025-02-01 06:59 | XMS_ITS | Clinical Summary ---
Author Organization [facility] Address [address], [address] [place] [address] Care Team Providers Care Material Controller Name Role Phone Tj Javier MD Primary Care Provider [phone] Allergies Active Allergy Reactions Criticality Noted Date Comments Grepafloxacin 08/01/2020 Medications SUMAtriptan (IMITREX) 100 MG tablet Take 100 mg by mouth once as needed for Migraine Active LANSOPRAZOLE PO Take 30 mg by mouth Active simvastatin (ZOCOR) 20 MG tablet Take 20 mg by mouth nightly Active irbesartan (AVAPRO) 150 MG tablet Take 150 mg by mouth nightly Active Multiple Vitamins-Minera ls (THERAPEUTIC MULTIVITAMIN-PA NERALS) tablet Take 1 tablet by mouth daily Active acetaminophen (TYLENOL) 500 MG tablet Take 1,000 mg by mouth every 6 hours as needed for Pain Active gabapentin (NEURONTIN) 300 MG capsule Take 1 capsule by mouth nightly for 30 days. Intended supply: 30 days 30 capsule 02/05/2021 Active Active Problems Problem Noted Date Diagnosed Date Cervical cord compression with myelopathy 2020 Family History Medical History Relation Name Comments Arthritis Father High Blood Pressure Father Relation Name Status Comments Father Social History Tobacco Use Types Packs/Day Years Used Date Smoking Tobacco: Never Smokeless Tobacco: Never Overall Financial Resource Strain (CARDIA) Answe r Date Recorded How hard is it for you to pa y for the very basics like food, housing, medical care, and heating? Not hard at all 11/07/2020 PHQ-2 Answer Date Recorded PHQ-9 Total Score 0 11/07/2020 Hunger Vital Sign Answer Date Recorded Within the past 12 months, y ou worried that your food would run out before you got the money to buy more. Never true 11/08/19 21 Within the past 12 months, t he food you bought just didn't last and you didn't have money to get more. Never true 11/07/2020 Comments No Sex and Gender Information Value Date Recorded Sex Assigned at Female 11/06/2020 10:10 AM EDT Legal Sex Female 10:27 AM EDT Gender Identity Female 11/06/2020 10:10 AM EDT Sexual Orientation Straight 11/06/2020 10 :10 AM EDT Last Filed Vital Signs Vital Sign Reading Time Taken Comments Blood Pressure 126/64 02/05/2021 9:20 AM EDT Pulse 109 11/19/2020 8:27 AM EDT Temperature 36.1 C (96.9 F) 02/05/2021 9:20 AM EDT Respiratory Rate 18 11/19/2020 4:29 AM EDT Oxygen Saturation 98% 11/19/2020 8:27 AM EDT Inhaled Oxygen Concentration - - Weight 90.7 kg (200 lb) 02/05/2021 9:20 AM EDT Height 162.6 cm (5' 4 ) 02/05/2021 9:20 AM EDT Body Mass Index 34.33 02/05/2021 9:20 AM EDT Plan of Treatment Not on file Medical Devices Implanted Type Area Warehouse Insulation Worker Device Identifier Shelf Expiration Date Model / Serial / Lot Cage Spnl [id number] Lum Lord Intbdy Fus [employer]ad Cc - [id number] Implanted:Qty: 1 on 11/18/2020 by Mejia Ochoa MD at [facility] N/A: Spine Cervical [employer]WD 10/10/2024 [id number] / [id number] / Graft Spnl [id number] Corticocancellous Lord [employer]ad - [id number] Implanted:Qty: 1 on 11/18/2020 by Mejia Ochoa MD at [facility] N/A: Spine Cervical [employer]WD 05/05/2024 [id number] / [id number] / Screw Spnl L7mm Dia2.6mm Lum Lat Mass Leverage Lfs Implanted:Qty: 3 on 11/18/2020 by Mejia Ochoa MD at [facility] N/A: Spine Cervical [employer]WD [id number] / / Plate Spnl L42mm Ant Cerv 2 Lev Translational [place] Acp Implanted:Qty: 1 on 11/18/2020 by Mejia Ochoa MD at [facility] N/A: Spine Cervical [employer]WD [id number] / / Screw Spnl L13mm Dia4mm Ant Cerv St Melanie Ang Compr [place] Acp Implanted:Qty: 6 on 11/18/2020 by Mejia Ochoa MD at [facility] N/A: Spine Cervical [employer]WD [id number] / / Screw Spnl L5mm Dia2.6mm Stubbs Leverage Lfs Implanted:Qty: 3 on 11/18/2020 by Mejia Ochoa MD at [facility] N/A: Spine Cervical [employer]WD [id number] / / Plate Spnl Cran Caud Stubbs 9.5mm M Leverage Lfs Implanted:Qty: 3 on 11/18/2020 by Mejia Ochoa MD at [facility] N/A: Spine Cervical [employer]WD [id number] / / Insurance [employer] Advance Directives * Full Code (Latest Code Status on File) Date Activated Date Inactivated Comments 11/18/2020 5:48 PM 11/19/2020 6:17 PM Care Teams Material Controller Relationship Specialty Start Date End Date Tj Javier MD [address] [place] [address] PCP - General Family Medicine 08/01/20
--- OUTSIDE RECORDS SUMMARY | 2025-02-01 06:59 | XMS_ITS | Patient Health Record ---
Author Organization The [facility] in [place] Address [address] [place] [address] Care Team Providers Care Blockmason Name Role Phone Alexander Garza Primary Care Provider Allergies No Known Allergies Results Component Value Reference Range Notes FREE T3 Reviewed date:08/04/2024 01:11:52 PM Interpretation: Performing Lab: Notes/Report: [facility] , Free T3 4.50 2.18-3.98 pg/mL Performing Lab: see note ML - [facility] LB T4 Reviewed date:08/04/2024 01:11:52 PM Interpretation: Performing Lab: Notes/Report: [facility] , T4 Thyroxine 8.50 4.80-13.90 ug/dL Performing Lab: see note ML - [facility] LB TSH Reviewed date:08/04/2024 01:11:52 PM Interpretation: Performing Lab: Notes/Report: [facility] , Thyroid Stimulating Hormone <0.007 0.358-3.740 u IU/mL Performing Lab: see note ML - [facility] LB THYROID ANTIBODIES Reviewed date:08/06/2024 08:05:59 PM Interpretation: Performing Lab: Notes/Report: [facility] Thyroid Peroxidase (TPO) Ab 15 0-34 IU/mL Thyroglobulin Antibody <1.0 0.0-0.9 IU/mL Thyroglobulin Antibody measured by Jair Pomeroy Methodology It should be noted that the presence of thyroglobulin antibodies may not be pathogenic nor diagnostic, especially at very low levels. The assay tester operator has found that four percent of individuals without evidence of thyroid disease or autoimmunity will have positive TgAb levels up to 4 IU/mL. Performed at: CB - [facility] [address] [id number] Roll Plugger Machine Operator: Lane Rivera PhD, Phone: [phone] Performing Lab: see note - [facility] LB XR DEXA axial skeleton Reviewed date:06/06/2024 07:11:53 PM Interpretation: Performing Lab: Notes/Report: Source Facility: [place] [address] XRay Report Signed Patient: ANA PALMER MR#: [id number] : 1970 Acct:[id number] Age/Sex: 53 / F ADM Date: 04/30/24 Loc: MAMMO Attending Dr: Usman Pan D.O. Ordering Physician: Usman Pan D.O. Date of Service: 04/30/24 Procedure(s): XR DEXA axial skeleton Accession Number(s): [id number] cc: Usman Pan D.O.; Gina Garza M.D. [place] [address] Patient Name: ANA PALMER MRN: [id number] date: 1970 Sex: F Assigned Patient Location: [facility] Current Patient Location: [facility] Accession/Order Number: [id number] Exam Date: 04/30/2024 07:35 Report Date: 04/30/2024 [...] prevention and treatment of osteoporosis. Osteoporos Int. 2021;33(10):2713-9255. doi: 10.1007/d00681-912-80345-t. Epub 2021Aug 13. Erratum in: Osteoporos Int. 2021Nov 12;: PMID: 10641108; PMCID: [id number]. Electronically authenticated by: ALE GERBER Date: 04/30/2024 08:37 Dictated By: Ale Gerber M.D. Signed By: 04/30/2439 DD/ TD/TT: Instructional Materials Director: VICTORIA tomosynthesis screening B I Reviewed date:06/06/2024 07:11:53 PM Interpretation: Performing Lab: Notes/Report: Source Facility: [facility] [place] [address] [place] [address] Mammography Report Signed Patient: ANA PALMER MR#: [id number] : 1970 Acct:[id number] Age/Sex: 53 / F ADM Date: 04/30/24 Loc: MAMMO Attending Dr: Usman Pan D.O. Ordering Physician: Usman Pan D.O. Results: Date of Service: 04/30/24 Follow Up: Procedure(s): MM tomosynthesis screening BI Accession Number(s): [id number] cc: Usman Pan D.O.; Gina Garza M.D. Patient Name: ANA PALMER MR#: [id number] : 1970 Exam Date: 04/30/2024 Ordering Doctor: DR Usman Pan . RADIOLOGY REPORT PROCEDURE: MM TOMOSYNTHESIS [...] aml cancer at age 24. LOCATION: [facility] BREAST COMPOSITION: The breasts are heterogeneously [...] BIOPSIED. Dictated by: Ale Gerber MD on 04/30/2024 at 09:02 Approved by: Ale Gerber MD on 04/30/2024 at 09:05 Dictated By: Ale Gerber M.D. Signed By: 04/30/24906 DD/ 4 TD/TT: Instructional Materials Director: Rosio NICHOLE Age Gdln Reviewed date:03/25/2024 06:28:55 PM Interpretation: Performing Lab: Notes/Report: SPATULA-ALONE VAGINA [facility] , Age Gdln ACOG Testing Note . TESTS RESULT FLAG UNITS REF RANGE LAB ---- Clinician Provided Cytology Information Source.............Vagina No. of containers..01 ThinPrep Vial Age Algo ACOG Darline... 29 ---- FLAG LEGEND: L-Low Normal,H-High Normal,LL-Alert Low,HH-Alert High <-Panic Low,>-Panic High,A-Abnormal,AA-Critical Abnormal ---- Performed at: 01 =G [address] [address] Michelle Rahman MD, IGP, Aptima HPV, rfx 16/18,45 Note . TESTS RESULT FLAG UNITS REF RANGE LAB ---- DIAGNOSIS: 02 NEGATIVE FOR INTRAEPITHELIAL LESION OR MALIGNANCY. CELLULAR CHANGES ASSOCIATED WITH ATROPHY ARE PRESENT. THIS SPECIMEN WAS RESCREENED PART OF OUR FISH FLIPPER PROGRAM. Specimen adequacy: 02 Satisfactory for evaluation. Performed by: 02 Chanelle Padilla Flat Polisher ([facility]) QC reviewed by: 02 Simon Wong Flat Polisher ([facility]) . 02 Note: Note 03 The Pap [...] Criteria not met, HPV Genotype not performed. ---- FLAG LEGEND: L-Low Normal,H-High Normal,LL-Alert Low,HH-Alert High <-Panic Low,>-Panic High,A-Abnormal,AA-Critical Abnormal ---- Performed at: 02 [facility] [address] [employer] [place] [address] Chris Enriquez MD, [address] [address] Michelle Rahman MD, HPV Aptima Negative Negative This nucleic acid amplification test detects fourteen high- risk HPV types (16,18,31,33,35,39,45,51,52, 56,58,59,66,68) without differentiation. Performed at: = - [address] [id number] Roll Plugger Machine Operator: Michelle Rahman MD, Phone: [phone] Performed at: [facility] [address] [place] [id number] Roll Plugger Machine Operator: Chris Enriquez MD, Phone: [phone] Performing Lab: see note - [facility] LB US THYROID Reviewed date:01/22/2025 04:45:59 PM Interpretation: Performing Lab: Notes/Report: Source Facility: [place] [address] Ultrasound Report Signed Patient: ANA PALMER MR#: [id number] : 1970 Acct:[id number] Age/Sex: 54 / F ADM Date: 01/21/25 Loc: US Attending Dr: Gina Garza M.D. Ordering Physician: Gina Garza M.D. Date of Service: 01/21/25 Procedure(s): US thyroid Accession Number(s): [id number] cc: Gina Garza M.D. [place] [address] Patient Name: ANA PALMER MRN: [id number] date: 1970 Sex: F Assigned Patient Location: US Current Patient Location: US Accession/Order Number: [id number] Exam Date: 01/21/2025 16:48 Report Date: 01/21/2025 22:50 At the request of: GINA GARZA MD Procedure: US thyroid Thyroid ultrasound Reason for exam: Thyroid nodule Comparison: 08/07/2024 Technique: Grayscale and color Doppler images of the thyroid gland were obtained. Findings: The right lobe measures 5.0 x 1.9 x 1.6 cm The left lobe measures 5.4 x 2.3 x 2.0 cm cm. Isthmus measures 3.0 mm . The thyroid gland is heterogenous in echotexture with multiple nodules present largest within the right lobe involving its inferior pole measuring 2.2 x 1.9 x 1.3 cm. This demonstrates TR-3 characteristics. There is a right midpole nodule 1.2 x 0.9 x 0.6 cm in size TR-4 A dominant nodule involving the left lobe measures 2.3 x 3.1 x 1.6 cm involving its mid to inferior aspect which has solid and cystic components as well as a shadowing calcification TR-4. US/US thyroid Impression: Increase in size of the TR-4 nodule left lower lobe currently 2.3 x 3.1 x 1.6 cm in size. Correlation with site of prior biopsy recommended. Given increase in size, percutaneous sampling may be beneficial Right midpole thyroid nodule TR 4, this can be followed. Alternatively, biopsy could also be considered as well. Impression dictated by: Wu Dorado M.D. 01/21/2025 10:50 PM Dictation Location: [place] [address] Electronically authenticated by: [id number] Y Date: 01/21/2025 22:50 Dictated By: Wu Dorado M.D. Signed By: 01/21/252251 DD/ 49 TD/TT: Instructional Materials Director: THYROID ANTIBODIES Reviewed date:08/09/2024 07:13:33 PM Interpretation: Performing Lab: Notes/Report: [facility] , Thyroid Peroxidase (TPO) Ab 13 0-34 IU/mL Thyroglobulin Antibody <1.0 0.0-0.9 IU/mL Thyroglobulin Antibody measured by Jair Pomeroy Methodology It should be noted that the presence of thyroglobulin antibodies may not be pathogenic nor diagnostic, especially at very low levels. The assay tester operator has found that four percent of individuals without evidence of thyroid disease or autoimmunity will have positive TgAb levels up to 4 IU/mL. Performed at: [facility] [address] [id number] Roll Plugger Machine Operator: Lane Rivera PhD, Phone: [phone] Performing Lab: see note - [facility] LB TSH Reviewed date:09/22/2024 05:30:58 PM Interpretation: Performing Lab: Notes/Report: [facility] , Thyroid Stimulating Hormone <0.007 0.358-3.740 u IU/mL Performing Lab: see note ML - [facility] LB T4 Reviewed date:09/22/2024 05:30:58 PM Interpretation: Performing Lab: Notes/Report: [facility] , T4 Thyroxine 8.40 4.80-13.90 ug/dL Performing Lab: see note ML - [facility] LB FREE T3 Reviewed date:09/22/2024 05:30:58 PM Interpretation: Performing Lab: Notes/Report: [facility] , Free T3 4.29 2.18-3.98 pg/mL Performing Lab: see note ML - [facility] LB US THYROID Reviewed date:08/08/2024 10:22:55 AM Interpretation: Performing Lab: Notes/Report: Source Facility: [place] [address] [address] Ultrasound Report Signed Patient: ANA PALMER MR#: [id number] : 1970 Acct:[id number] Age/Sex: 53 / F ADM Date: 08/07/24 Loc: US Attending Dr: Gina Garza M.D. Ordering Physician: Gina Garza M.D. Date of Service: 08/07/24 Procedure(s): US thyroid Accession Number(s): [id number] cc: Gina Garza M.D. [place] [address] Patient Name: ANA PALMER MRN: [id number] date: 1970 Sex: F Assigned Patient Location: US Current Patient Location: US Accession/Order Number: [id number] Exam Date: 08/07/2024 22:17 Report Date: 08/07/2024 22:20 At the request of: GINA GARZA MD Procedure: US thyroid Thyroid ultrasound Reason for exam: Left neck lump for 9 months Comparison: none Technique: Grayscale and color Doppler images of the thyroid gland were obtained. Findings: The right lobe measures 4.7 x 1.9 x 2.1 cm. The left lobe measures 5.7 x 2.2 x 2.3 cm. Isthmus measures 2.7 mm. The thyroid gland is heterogenous in echotexture with multiple nodules present largest within the right lobe involving its inferior pole measuring 19 x 14 x 17 mm. This is predominantly hypoechoic without microcalcifications. A dominant nodule involving the left lobe measures 20 x 18 x 21 mm involving its mid to inferior aspect which has solid and cystic components as well as a shadowing calcification. Imaging of the left submandibular region in the area of lump demonstrates benign-appearing lymph nodes present. US/US thyroid Impression: Evidence of multinodular goiter largest nodule measuring 20 x 18 x 21 mm involving the mid inferior aspect of the left lobe. FNA should be considered. In the area palpable lump involving the left submandibular region, benign-appearing lymph nodes are present. No solid mass. Impression dictated by: Aftab Powell Jr., D.O.08/07/2024 10:20 PM Dictation Location: [place] [address] Electronically authenticated by: [id number] Y Date: 08/07/2024 22:20 Dictated By: Aftab Powell M.D. Signed By: 08/07/242222 DD/ 19 TD/TT: Instructional Materials Director: IRON Reviewed date:07/22/2024 03:46:53 PM Interpretation: Performing Lab: Notes/Report: [facility] , Iron 75.0 50.0-170.0 ug/dL Performing Lab: see note ML - [facility] LB CBC AUTO DIFF Reviewed date:07/22/2024 03:46:53 PM Interpretation: Performing Lab: Notes/Report: [facility] , White Blood Count 4.0 4.0-11.0 10 3/uL Red Blood Count 5.02 4.20-5.40 10 6/uL Hemoglobin 13.9 12.0-16.0 g/dL Hematocrit 42.2 36.0-48.0 % Mean Corpuscular Volume 84.1 81.0-99.0 fL Mean Corpuscular Hemoglobin 27.7 26.7-34.0 pg Mean Corpuscular HGB Conc 32.9 29.9-35.2 g/dL Red Cell Distribution Width 12.6 11.0-15.0 % Platelet Count 241 150-450 10 3/uL Mean Platelet Volume 10.1 9.5-13.5 fL Neutrophils Percent Auto 54.0 43.0-75.0 % Lymphocytes Percent Auto 36.1 20.5-60.0 % Monocytes Percent Auto 8.7 1.7-12.0 % Eosinophils Percent Auto 0.0 0.9-7.0 % Basophils Percent Auto 1.2 0.2-2.0 % Immature Granulocytes Pct Auto 0.0 0.0-0.5 % Neutrophils Absolute Auto 2.2 1.4-6.5 10 3/uL Lymphocytes Absolute Auto 1.5 1.2-3.8 10 3/uL Monocytes Absolute Auto 0.4 0.3-0.8 10 3/uL Eosinophils Absolute Auto 0.0 0.0-0.7 10 3/uL Basophils Absolute Auto 0.1 0.0-0.1 10 3/uL Immature Granulocytes Abs Auto 0.00 0.00-0.03 10 3/uL Performing Lab: see note - [facility] LB VITAMIN D 25 [place] Reviewed date:07/22/2024 03:46:53 PM Interpretation: Performing Lab: Notes/Report: [facility] , Vitamin D 35.6 <20 ng/mL Vit D deficient 20-<30 ng/mL Vit D insufficient 30-100 ng/mL Vit D sufficient >100 ng/mL Potential Toxicity Performing Lab: see note - [facility] LB TSH Reviewed date:07/22/2024 03:46:53 PM Interpretation: Performing Lab: Notes/Report: [facility] , Thyroid Stimulating Hormone <0.007 0.358-3.740 u IU/mL Performing Lab: see note - [facility] LB T4 Reviewed date:07/22/2024 03:46:53 PM Interpretation: Performing Lab: Notes/Report: [facility] , T4 Thyroxine 8.50 4.80-13.90 ug/dL Performing Lab: see note - [facility] LB PROF 14(COMP METB) Reviewed date:07/22/2024 03:46:53 PM Interpretation: Performing Lab: Notes/Report: [facility] , Sodium 140 136-145 mmol/L Potassium 4.7 3.5-5.1 mmol/L Chloride 107 98-107 mmol/L Carbon Dioxide 28.8 21.0-32.0 mmol/L Anion Gap 8.9 Glucose 102 74-106 mg/dL Blood Urea Nitrogen 15.0 7.0-18.0 mg/dL Creatinine 0.68 0.55-1.02 mg/dL Estimated GFR ( Jillian >60 >=60 mL/min/1.73m 2 Estimated GFR (Non- Tiffanie >60 >=60 mL/min/1.73m 2 BUN Creatinine Ratio 22.1 Calcium 9.0 8.5-10.1 mg/dL Bilirubin Total 0.4 0.2-1.0 mg/dL Aspartate Amino Transferase 16 15-37 U/L Alanine Aminotransferase 23 14-59 U/L Alkaline Phosphatase 108 46-116 U/L Total Protein 6.8 6.4-8.2 g/dL Albumin Level 3.5 3.4-5.0 g/dL Globulin 3.3 Albumin Globulin Ratio 1.1 Performing Lab: see note ML - [facility] LIPID PROFILE Reviewed date:07/22/2024 03:46:53 PM Interpretation: Performing Lab: Notes/Report: [facility] , Triglycerides 22 <=150 mg/dL Cholesterol 150 <=200 mg/dL HDL Cholesterol 89 40-60 mg/dL > or =60 mg/dl - LOW CARDIOVASCULAR RISK <40 mg/dl - HIGH CARDIOVASCULAR RISK LDL Cholesterol Calculated 57.0 <100 mg/dl OPTIMAL 100-129 mg/dl NEAR OR ABOVE OPTIMAL 130-159 mg/dl BORDERLINE HIGH 160-189 mg/dl HIGH >190 mg/dl VERY HIGH VLDL CHOLESTEROL 4.4 Chol HDL Ratio 1.7 3.3 - 4.4 LOW RISK 4.4 - 7.1 AVERAGE RISK 7.1 - 11.0 MODERATE RISK >11.0 HIGH RISK Performing Lab: see note ML - [facility] GLYCOHEMOGLOBIN A1C Reviewed date:07/22/2024 03:46:53 PM Interpretation: Performing Lab: Notes/Report: [facility] , Glycohemoglobin A1C 6.0 4.5-6.2 % ADA RECOMMENDED LIMIT 4.0 - 6.0 ADA THERAPEUTIC TARGET < 7.0 ACTION SUGGESTED > 7.0 Estimated Average Glucose 126 Performing Lab: see note ML - [facility] FREE T3 Reviewed date:07/22/2024 03:46:53 PM Interpretation: Performing Lab: Notes/Report: [facility] , Free T3 4.89 2.18-3.98 pg/mL Performing Lab: see note ML - [facility] Reason For Referral No Information Medications Medication SIG (Take, Route, Fr equency, Duration) Notes Start Date End Date Status Irbesartan 150 mg TAKE 1 TABLET DAILY Active Mupirocin 2 % 1 application Jumbo Operator ally Twice a day; Duration: 5 days 01/17/2025 Ac tive Simvastatin 20 mg TAKE 1 TABLET DAILY IN THE EVENING Active Estradiol 0.05 MG/24HR Transdermal; Dura tion: 28 Days Active Imitrex 100 MG 1 tablet at least 2 hours between doses as needed Orally Twice a day Active predniSONE 20 MG 2 tablets Orally Onc e a day; Duration: 5 days 01/17/2025 Active Valium 10 MG 1 tablet as needed O rally once about 1 hour before procedure; Duration: 1 days 01/17/2025 Acti ve Social History Tobacco Use: Social History Observation Description Date Details (start date - stop date) Never Smoker NA - NA Tobacco Use/Smoking Question Answer Notes Patient is a nonsmoker Alcohol Screen (Audit-C) Question Answer Notes Did you have a drink contain ing alcohol in the past year? Yes How often did you have 6 or more drinks on one occasion in the past year? Never (0 point) How many drinks did you have on a typical day when you were drinking in the past year? 3 or 4 drinks (1 point) How often did you have a dri nk containing alcohol in the past year? Weekly (3 points) Points 4 Interpretation Positive AUDIT-C (Standard) Question Answer Notes Did you have a drink contain ing alcohol in the past year? Yes How often did you have a dri nk containing alcohol in the past year? Monthly or less (1 point) How many drinks did you have on a typical day when you were drinking in the past year? 3 or 4 drinks (1 point) How often did you have six o r more drinks on one occasion in the past year? 2 to 3 times per week (3 points) Points 5 Interpretation Positive Problems Problem Type SNOMED Code ICD Code Onset Dates Problem Status W/U Status Risk Notes Problem Chronic intractable migraine without aura (534714715628421) Chronic migraine without aura, intractable, with status migrainosus (G43.711) Active confirmed Problem Vertiginous syndrome (95714592) Vertiginous syndromes in diseases classified elsewhere, unspecified ear (H82.9) Active confirmed Problem Alopecia areata (40434188) Other alopecia areata (L63.8) Active confirmed Problem Sprain of calcaneofibular ligament (42748545) Sprain of calcaneofibular ligament of left ankle, initial encounter (S93.412A) Active confirmed Problem Onychomycosis caused by dermatophyte (181041783) OM (onychomycosis) (B35.1) Active confirmed Problem Hyperlipidemia (36448769) Hyperlipidemia (E78.5) Active confirmed Problem Asthma (046006420) Asthma (J45.909) Active conf irmed Problem Cervical radiculopathy (67837560) Cervical radiculopathy (M54.12) Active confirmed Problem Hypertension (06580390) HTN (hypertension) (I10) Active confirmed Problem Anxiety (74744919) Anxiety (F41.9) Active confi rmed Problem Hypothyroid (28537854) Hypothyroid (E03.9) Active confirmed Problem Sleep apnea (57105501) Sleep apnea (G47.30) Active confirmed Problem Lumbar radiculopathy (434670097) Lumbar radiculopathy (M54.16) Active confirmed Problem Thyroid nodule (047216969) Thyroid nodule (E04.1) Active confirmed Problem Acute bronchitis (44445151) Acute bronchitis (J20.9) Active confirmed Problem Well adult (159616601) Well adult (Z00.00) Active confirmed Problem Radial styloid tenosynovitis (54135448) De Quervain's tenosynovitis (M65.4) Active confirmed Problem Mass of neck (267131449) Neck mass (R22.1) Active confirmed Problem Generalized abdominal pain (975744646) Abdominal pain, generalized (R10.84) Active confirmed Problem Strep throat (45596528) Strep throat (J02.0) Active confirmed Problem Type II diabetes mellitus without complication (742529109) Diabetes mellitus type 2, noninsulin dependent (E11.9) Active confirmed Problem Right lower quadrant pain (431066409) Abdominal pain, RLQ (R10.31) Active confirmed Problem Migraine (34011227) Migraine, unspecified (G43.909) Active confirmed Problem Shoulder impingement syndrome (094662303) Shoulder impingement syndrome (M75.40) Active confirmed Problem Inguinal hernia (078424668) Hernia, inguinal, right (K40.90) Active confirmed Problem Pain in limb (57180817) Pain, hand joint (M79.643) Active confirmed Problem Contusion of hand (3361506) Contusion, hand (S60.229A) Active confirmed Problem Myalgia (85825468) Myalgia (M79.10) Active conf irmed Problem Disease caused by Severe acute respiratory syndrome coronavirus 2 (disorder) (393453299) COVID-19 virus infection (U07.1) Active confirmed Problem Low back pain (664340235) Low back pain, unspecified (M54.50) Active confirmed Vital Signs Blood pressure diastolic 98 mm Hg 01/17/2025 Height 64 in 01/17/2025 Blood pressure systolic 158 mm Hg 01/17/2025 Weight 181.6 lbs 01/17/2025 BMI 31.17 kg/m2 01/17/2025 Procedures Procedure Date Ordered Date Performed Result Body Sit e Biopsy, Fine Needle 10/03/2024 N/A Biopsy, Fine Needle 09/26/2024 N/A Encounters Encounter Location Date Provider Diagnosis [facility] [address] [place] [address] 01/17/2025 Alexander Hoy Acute non-recurrent sinusitis, unspecified location J01.90 ; Nasal congestion R09.81 ; Headache R51.9 and Bloody nose R04.0 [facility] [address] [place] [address] 07/16/2024 Alexander Hoy Well adult Z00.00 an d Neck mass R22.1 [facility] [address] [place] [address] 07/22/2024 Alexander Hoy Hypothyroid E03.9 [facility] [address] [place] [address] 08/04/2024 Alexander Hoy Abnormal thyroid blo od test R79.89 [facility] [address] [place] [address] 08/08/2024 Alexander Hoy [facility] [address] [place] [address] 08/09/2024 Alexander Hoy Hypothyroid E03.9 [facility] [address] [place] [address] 09/22/2024 Alexander Hoy [facility] [address] [place] [address] 09/26/2024 Alexander Hoy Neck mass R22.1 [facility] [address] [place] [address] 10/03/2024 Alexander Hoy Thyroid nodule E04.1 [facility] [address] [place] [address] 10/28/2024 Alexander Hoy [facility] [address] [place] [address] 01/16/2025 Alexander Hoy Thyroid nodule E04.1 [facility] [address] [place] [address] 01/22/2025 Alexander Hoy Thyroid nodule E04.1 [facility] [address] [place] [address] 01/25/2025 Alexander Hoy Assessments Encounter Date Diagnosis (ICD Code) Assessment Notes Treatment Notes Treatment Clinical Notes Section Notes 07/16/2024 Well adult (ICD-10 - Z00.00) 07/16/2024 Neck mass (ICD-10 - R22.1) 01/17/2025 Acute non-recurrent sinusitis, unspecified location (ICD-10 - J01.90) Rest and drink more liquids, especially water. You may use a humidifier or vaporizer to help keep the drainage moist. Lmjv-xok-awoxmbu Nasal Saline may help the stuffy and runny nose. Use Ibuprofen and or Tylenol as needed for fever, chills, body aches or pain. Children 5 years old should not be given ldln-odm-lzavbug cough and cold medications such as guaifenesin and dextromethorphan. If you're over age 5, you may try iqvf-rai-eklupsr cold medications such as guaifenesin and dextromethorphan, or multi-symptom cold reliever such as Dayquil to help reduce the symptoms. Antibiotics have been prescribed. You should take these until completed and follow the directions. Antibiotics can sometimes cause upset stomach, and in rare cases, serious allergic reactions or serious gastrointestinal problems. If you start having severe abdominal pain, severe vomiting, or bloody diarrhea, you should be reevaluated by your physician or urgent care immediately. Follow up with your Primary Care Provider or return to clinic if symptoms do not improve within 3-5 days 07/22/2024 Hypothyroid (ICD-10 - E03.9) 08/04/2024 Abnormal thyroid blood test (ICD-10 - R79.89) 08/09/2024 Hypothyroid (ICD-10 - E03.9) 09/26/2024 Neck mass (ICD-10 - R22.1) 10/03/2024 Thyroid nodule (ICD-10 - E04.1) 01/16/2025 Thyroid nodule (ICD-10 - E04.1) 01/22/2025 Thyroid nodule (ICD-10 - E04.1) 01/17/2025 Nasal congestion (ICD-10 - R09.81) 01/17/2025 Headache (ICD-10 - R51.9) 01/17/2025 Bloody nose (ICD-10 - R04.0) Plan Of Treatment Pending Test Test Name Order Date HEMOGLOBIN A1C (GLYCO) 07/16/2024 IRON, TOTAL 07/16/2024 LIPID PANEL (CHOL/TRIG/HDL/LDL) 07/17/19 25 VITAMIN D, 25 LEVEL (TOTAL) 07/16/2024 Biopsy, Fine Needle 09/26/2024 Biopsy, Fine Needle 10/03/2024 COMPREHENSIVE METABOLIC PROFILE WITH GFR 06/10/2023 CBC W/AUTO DIFF 06/10/2023 CBC W/AUTO DIFF 06/11/2023 THYROID ANTIBODIES 06/11/2023 THYROID ANTIBODIES 07/22/2024 MRI BRAIN WO CON 01/17/2025 US THYROID 10/18/2023 THYROID PANEL (T4/TSH/FREE T3) 3 THYROID PANEL (T4/TSH/FREE T3) 4 THYROID PANEL (T4/TSH/FREE T3) 5 THYROID PANEL (T4/TSH/FREE T3) 5 THYROID PANEL (T4/TSH/FREE T3) 5 Lipid Panel 06/10/2023 US soft tissue head and neck 07/16/2024 US soft tissue head and neck 10/18/2023 CMP (COMP MET ALBA) w/eGFR CKD-EPI 2024 CBC WITH DIFF 07/16/2024 Insurance Providers Payer Name Payer Address Payer Phone Subscriber Number Group Number Insured Name Patient Relationship to Insured Coverage Start Date Coverage End Date [employer] PPO PLUS LOCAL PLAN [address] [place] [address] [phone] [id number] Barron Seth Spouse - patient is the spouse of the insured Medical (General) History Medical History History ICD Code Lumbar radiculopathy M54.16 Pain, hand joint M79.643 Hernia, inguinal, right K40.90 De Quervain's tenosynovitis M65.4 Cervical radiculopathy M54.12 Diabetes mellitus type 2, noninsulin dep endent E11.9 COVID-19 virus infection U07.1 Strep throat J02.0 Well adult Z00.00 Abdominal pain, RLQ R10.31 Chronic migraine without aura, intractab le, with status migrainosus G43.711 Vertiginous syndromes in diseases classi fied elsewhere, unspecified ear H82.9 Other alopecia areata L63.8 OM (onychomycosis) B35.1 Sprain of calcaneofibular ligament of le ft ankle, initial encounter S93.412A Hyperlipidemia E78.5 Sleep apnea G47.30 Low back pain, unspecified M54.50 Shoulder impingement syndrome M75.40 Abdominal pain, generalized R10.84 Myalgia M79.10 Acute bronchitis J20.9 Contusion, hand S60.229A Migraine, unspecified G43.909 HTN (hypertension) I10 Asthma J45.909 Anxiety F41.9 Surgical History Surgery Date(Month/Year) Left Total Hip Replacement 01/31/2023 x1 Neck Surgery Total Hysterectomy
--- OUTSIDE RECORDS SUMMARY | 2025-02-01 06:59 | XMS_ITS | Patient Health Record ---
Author Organization [facility] Address [address] [place] [address] Care Team Providers Care Poker Manager Name Role Phone Jt Matthews Unavailable [phone] Reason For Referral No Information Medications Medication SIG (Take, Route, Fr equency, Duration) Notes Start Date End Date Status simvastatin 20 mg for 90 Days Active irbesartan 150 mg for 90 Days Active lansoprazole 30 mg for 90 Days Active Social History Tobacco Use: Social History Observation Description Date Details (start date - stop date) Never Smoker NA - NA Smoking History Question Answer Notes Smoking Status NonSmoker AUDIT-C (Standard) Question Answer Notes Did you have a drink contain ing alcohol in the past year? Yes How often did you have six o r more drinks on one occasion in the past year? Less than monthly (1 point) How many drinks did you have on a typical day when you were drinking in the past year? 1 or 2 drinks (0 point) How often did you have a dri nk containing alcohol in the past year? 2 to 4 times a month (2 points) Problems Problem Type SNOMED Code ICD Code Onset Dates Problem Status W/U Status Risk Notes Problem 648861142 Aftercare follow ing surgery of the musculoskeletal system (Z47.89) Active confirmed Problem 862047187 Arthrodesis stat us (Z98.1) Active confirmed Plan Of Treatment Pending Test Test Name Order Date XR SPINE CERVICAL 4 VIEWS 07/15/2023 Insurance Providers Payer Name Payer Address Payer Phone Subscriber Number Group Number Insured Name Patient Relationship to Insured Coverage Start Date Coverage End Date Gala SAMUELS [address] [place] [phone] [id number] ANA PALMER Self - patient is the insured Medical (General) History Medical History History ICD Code Bronchitis: Yes DRUG ALLERGIES: Yes Gastric Reflux: Yes High Blood Pressure: Yes Have you been seen by a dentist in the l ast year?: Yes Surgical History Surgery Date(Month/Year) 2022 hip replacement 01/31/232021 hernia repair [id number] neck surgery 11/20202019 hysterectomy 02/2020
--- OUTSIDE RECORDS SUMMARY | 2025-02-01 07:00 | XMS_ITS | CCD ---
Author Organization [facility] Care Team Providers Care Novelty Worker Name Role Phone Gina Garza MD Primary Care Provider [phone] GINA GARZA Primary Care Unavailable GINA GARZA Referring Unavailable ELIAS, MEJIA H. Admitting Unavailable ELIAS, MEJIA H. Attending Unavailable ELIAS, MEJIA H. Attending Unavailable ELIAS, MEJIA H. Referring Unavailable GINA GARZA Primary Care Unavailable GINA GARZA Primary Care Unavailable ELIAS, MEJIA H. Referring Unavailable Gina Garza Primary Care Physician Santiago Cano Unavailable Sawyer Greer Unavailable MD Gina Garza Primary Care Provider [phone] MD Sawyer Greer Attending Provider DR GINA [...] FUENTES Primary Care Unavailable HOY ., DR FUNETES Admitting Unavailable HOY ., DR FUENTES Attending Unavailable MD Gina Garza Primary Care Provider MD Edison Veronica II Attending Provider Edison Veronica II Unavailable MD Gina Garza Primary Care Provider MD Edison Veronica II Attending Provider [phone] MD Gina Garza Primary Care Provider [phone] MD Edison Veronica II Attending Provider MD Gina Garza Primary Care Provider [phone] MD Edison Veronica II Attending Provider Unavailable Primary Care Provider UnavailGina Fofana MD [...] grepafloxacin (3 sources) grepafloxacin Drug Allergy 1 [facility] (15 sources) grepafloxacin; Translations: [grepafloxacin] Drug Allergy 1 Skin reaction (observable entity), [facility] [place] (2 sources) grepafloxacin Drug Allergy [facility] Repository (9 sources) Adhesive Tape; Translations: [adhesive tape] Propensity to adverse reactions 3 Itching [facility] (1 source) grepafloxacin Drug Allergy 5 [facility] Repository Medications Current Medications Medication Drug [...] for 1 Days Not-Taking/PRN 168 hr estradiol 0.68719 mg/hr transdermal system (15 sources) Estrogen Start: [...] by mouth once daily Multiple Vitamins-Minerals (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 MULTIVITAMIN-INSTALLER 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) tablet Take 1 tablet by mouth daily 0 Active take 1 tablet by mouth once susan y Multiple Vitamins-Minerals (THERAPEUTIC MULTIVITAMIN-MINERALS) tablet Take 1 tablet by mouth daily 0 Suspended Multivitamin preparation (7 sources) Start: 01-20-2023 take 1 tablet by mouth once daily Multivitamin Active 1 TAB PO Daily January 19, 2023 11:00pm Start: 01-20-2023 take 1 tablet by [facility] once daily Multivitamin Active 1 TAB [...] 01/07/2025 02/06/2025 Active take 1 capsule by [facility] every twenty-four hours Adipex-P 37.5 MG 1 [...] once daily Biotin 10,000 mcg Capsule Discontinued 48114 MCG PO Daily January 20, 2023 12:00am [...] 8:18am docusate sodium 50 mg / sennosides, mcfp 8.6 mg oral tablet (9 sources) Start: [...] DOS: 01/31/23 Jan, Not-Taking/PRN polyethylene glycol 3350 46851 mg powder for oral solution (7 sources) [...] 02-02-2024 Chronic Other aftercare (1 source) Other fpc (current) drug therapy Episodic Other connective tissue [...] (Bld) [Time] 29.4 s Normal 25.1-36.5 [facility] Comment on above: Result Comment: A he matocrit value greater than 55% may lead to inaccurate results in coagulation testing. Patients having hematocrit values >55% require a special collection tube for coagulation studies. Please contact the laboratory at [phone] for redraw instructions. PERFORMED BY: [place] [address] PATHOLOGIST CPR INSTRUCTOR HAMMAD NAGY M.D. Performed By: #### P LT, PP #### [address] INR in Platelet poor plasma by Coagulation assayOrdered By: Gina Garza on 10-25-2024 INR Coag (PPP) [Relative time] 1.0 {INR} Normal [facility] Comment on above: INR Therapeutic Rang e [...] Performed By: #### P LT, PP #### [address] 10-25-2024 L ------ Specimen: [id number] Received: 10/26/24 Status: ABRAN Dunn Num: [id number] Spec Type: Cytology Subm Dr: Reggie Vallejo, MD ERIKA Tissues: A FNA SLIDES NOPATH (THYROID FNA- ISTHMUS) B FNA SLIDES NOPATH (LT INF THYROID LOBE) Procedures: -/2, Cyto Int and Re/2, DIFF QWIK/7, PAPSTN/9 Age/ Patient Sex Location Account Attending Physician Ana Cruz 53/F [id number] Gina Garza MD SPEC NUM: [id number] RECD: 10/26/24 STATUS: ABRAN DUNN NUM: [id number] CHANO: 10/25/24 [facility] DR: Reggie Vallejo II, MD ENTERED: 10/26/[address] [facility] DR: Gina Garza MD SPEC TYPE: Cytology DEPT: CNG ENTERED BY: [id number] RECV BY: [id number] ORDERED: -/2, Cyto Int and Re/2, DIFF QWIK/7, PAPSTN/9 ORDERED: -/2, Cyto Int and Re/2, DIFF QWIK/7, PAPSTN/9 Pathological Diagnosis A. Thyroid Isthmus nodule, fine needle aspiration (ThinPrep and Smears Slides): - Satisfactory for evaluation. - Sheets of benign-appearing follicular cells in a background of macrophages and watery colloid consistent with benign follicular nodule/cellular adenomatous nodule ([place] Category: II). - Negative for malignant cells. B. Thyroid, left inferior nodule, fine needle aspiration (ThinPrep and Smears Slides): - Suboptimal for evaluation due to scant cellularity. - Few benign- appearing follicular cells and watery colloid, favor benign follicular nodule ([place] Category: II). - Negative for malignant cells. [...] [id number] Received: 10/26/24 Status: ABRAN Dunn Num: [id number] Spec Type: Cytology Subm Dr: Reggie Vallejo II, MD Tissues: A FNA SLIDES NOPATH (THYROID FNA- ISTHMUS) B FNA SLIDES NOPATH (LT INF THYROID LOBE) Procedures: -/2, Cyto Int and Re/2, DIFF QWIK/7, PAPSTN/9 Patient: Ana Cruz [id number] (Continued) Specimen: [id number] Received: 10/26/24 (Continued) Gross Description (Continued) Signed (signature on file) August Cuellar MD 10/26/24 1002 Specimen: [id number] Received: 10/26/24 Status: ABRAN Dunn Num: [id number] Spec Type: Cytology Subm Dr: Reggie Vallejo II, MD Tissues: A FNA SLIDES NOPATH (THYROID FNA- ISTHMUS) B FNA SLIDES NOPATH (LT INF THYROID LOBE) Procedures: -/2, Cyto Int and Re/2, DIFF QWIK/7, PAPSTN/9 Patient: Ana Cruz [id number] (Continued) Specimen: [id number] Received: 10/26/24 (Continued) Gross [...] vial stored at -20 for microscopic examination. (YC/ri) Immediate Evaluation On Site Adequacy: A. Isthmus thyroid Nodule, Ultrasound-guided FNA: - Pass #1-2: Adequate YC, 10/25/24. 9:50 AM B. Left thyroid Nodule, Ultrasound-guide FNA: - Pass#1 to #3: Few Follicular cells, inadequate. - Pass #4: Blood YC, 10/25/24, 10 A.M. Microscopic Description A B: Microscopic examination is performed. CPT Codes 22154 x2, 09059 x2 Specimen: [id number] Received: 10/26/24 Status: ABRAN Dunn Num: [id number] Spec Type: Cytology Subm Dr: Reggie Vallejo II, MD Tissues: A FNA SLIDES NOPATH (THYROID FNA- ISTHMUS) B FNA SLIDES NOPATH (LT INF THYR (more content not included)... Normal [facility] Platelets [#/volume] in Bloo d by Automated countOrdered By: Gina Garza on 10-25-2024 Platelets (Bld) [#/Vol] 286 10*3/uL Normal 150-450 [facility] Comment on above: Result Comment: PERF ORMED BY: [place] [address] PATHOLOGIST CPR INSTRUCTOR HAMMAD NAGY M.D. Performed By: #### P LT, PP #### [address] Prothrombin time (PT)Ordered By: Gina Garza on 10-25-2024 PT Coag (PPP) [Time] 11.6 s Normal 9.0-12.9 [facility] Comment on above: A hematocrit value g reater than 55% may lead to inaccurate results in coagulation testing. Patients having hematocrit values >55% require a special collection tube for coagulation studies. Please contact the laboratory at [phone] for redraw instructions. Result Comment: A he matocrit value greater than 55% may lead to inaccurate results in coagulation testing. Patients having hematocrit values >55% require a special collection tube for coagulation studies. Please contact the laboratory at [phone] for redraw instructions. Performed By: #### P LT, PP #### [place] [id number] [facility] US needle aspirationon 10-25 US needle aspiration [facility] [place] [address] [place], [place] [address] Ultrasound Report Signed Patient: Ana Cruz MR#: [id number] : 1970 Acct:[id number] Age/Sex: 53 / F ADM Date: 10/25/24 Loc: Room: Type: [facility] Attending Dr: Gina Garza MD Ordering Provider: [...] Vallejo M.D. 10/25/2024 3:57 PM Dictation Location: [place] [address] Tech: Renetta Tali Transcribed By: SAAD 10/25/241556 Dictated By: Reggie Vallejo II, MD 10/25/241549 Signed By: 10/25/241556 Normal [facility] aPTT in Platelet poor plasma by Coagulation assayOrdered By: Gina Garza on 10-25-2024 aPTT Coag (PPP) [Time] 29.4 s 25.1-36.5 [facility] Comment on above: A hematocrit value g reater than 55% may lead to inaccurate results in coagulation testing. Patients having hematocrit values >55% require a special collection tube for coagulation studies. Please contact the laboratory at [phone] for redraw instructions. IGP,APTIMA HPV,AGE GDLNon AGE GDLN ACOG TESTING Note . [facility] Comment on above: TESTS RESULT FLAG U NITS REF RANGE LAB Clinician Provided Cytology Information Source.............Vagina No. of containers..01 ThinPrep Vial Age Algo ACOG Darline... 30-65 01 FLAG LEGEND: L-Low Normal,H-High Normal,LL-Alert Low,HH-Alert High <-Panic Low,>-Panic High,A-Abnormal,AA-Critical Abnormal Performed at: 01 =G [address] [place] [address] Michelle Rahman MD, HPV APTIMA Negative Negative [facility] Comment on above: This nucleic acid am plification test detects fourteen high- risk HPV types (16,18,31,33,35,39,45,51,52,56,58,59,66,68) without differentiation. Performed at: =G - [facility], [place] [id number] [employer] Specialist: Michelle Rahman MD, Phone: [phone] Performed at: [facility] [address] [place], [place] [id number] [employer] Specialist: Chris Enriquez MD, Phone: [phone] IGP, APTIMA HPV, RFX 16/18,45 Note . [facility] Comment on above: TESTS RESULT FLAG UN ITS REF RANGE LAB DIAGNOSIS: 02 NEGATIVE FOR INTRAEPITHELIAL LESION OR MALIGNANCY. CELLULAR CHANGES ASSOCIATED WITH ATROPHY ARE PRESENT. THIS SPECIMEN WAS RESCREENED PART OF OUR [employer] PROGRAM. Specimen adequacy: 02 Satisfactory for evaluation. Performed by: 02 Chanelle Padilla, Prospecting Driller ([facility]) QC reviewed by: 02 Simon Wong, Prospecting Driller ([facility]) . 02 Note: Note 03 The [...] High,A-Abnormal,AA-Critical Abnormal Performed at: 02 [facility] [address] [address] [place] [address] Chris Enriquez MD, 03 WB [facility] [address] [place] [address] Michelle Rahman MD, SPATULA-ALONE [facility] XR hip LT min 2V(w/wo pelvis )*on 02-02-2024 XR hip LT min 2V(w/wo pelvis)* [facility] [place] [address] [place] [address] XRay Report Signed Patient: Ana Cruz MR#: [id number] : 1970 Acct:[id number] Age/Sex: 53 / F ADM Date: 02/02/24 Loc: [facility] Room: Type: [facility] Attending Dr: Edison Veronica II, MD [...] 9:56 AM Dictation Location: RADIO-PC-10 Transcribed By: [facility] 02/02/24955 Dictated By: Radha Godinez MD 02/02/2450 Signed By: 02/02/24955 Normal [facility] XR hip LT min 2V(w/wo pelvis )*on 04-20-2023 XR hip LT min 2V(w/wo pelvis)* [facility] [place] Other XR hip LT min 2V(w/wo pelvis)* [facility] [place] Other XR hip LT min 2V(w/wo pelvis)* [address] [place] [address] [place] Other XR hip LT min 2V(w/wo pelvis)* [place] [address] [place] Other XR hip LT min 2V(w/wo pelvis)* XRay Report [place] Other XR hip LT min 2V(w/wo pelvis)* Signed [place] Other XR hip LT min 2V(w/wo pelvis)* Patient: Ana Cruz MR#: [id number] [place] Other XR hip LT min 2V(w/wo pelvis)* : 1970 Acct:[id number] [place] Other XR hip LT min 2V(w/wo pelvis)* Age/Sex: 52 / F ADM Date: 04/20/23 [place] Other XR hip LT min 2V(w/wo pelvis)* Loc: [facility] Room: Type: [facility] [place] Other XR hip LT min 2V(w/wo pelvis)* Attending Dr: Edison Veronica II, MD [place] Other XR hip LT min 2V(w/wo pelvis)* Copies to: Edison Veronica MD [place] Other XR hip LT min 2V(w/wo pelvis)* Ordering Provider: Edison Veronica MD [place] Other XR hip LT min 2V(w/wo pelvis)* Date of Service: 04/20/23 [place] Other XR hip LT min 2V(w/wo pelvis)* XR/XR hip LT min 2V(w/wo pelvis)*: S/P total left hip arthroplasty [place] Other XR hip LT min 2V(w/wo pelvis)* AP PELVIS AND LEFT HIP - 2 views: [place] Other XR hip LT min 2V(w/wo pelvis)* CLINICAL HISTORY: Follow-up left hip replacement [place] Other XR hip LT min 2V(w/wo pelvis)* COMPARISON: 03/17/2023 [place] Other XR hip LT min 2V(w/wo pelvis)* AP view of the pelvis and crosstable lateral view of the left hip were obtained. A left hip [place] Other XR hip LT min 2V(w/wo pelvis)* prosthesis is again visualized. The hardware appears intact and unchanged from the prior. There is [place] Other XR hip LT min 2V(w/wo pelvis)* no developing fracture or dislocation. There is minor sclerosis at the SI joints. There are no [place] Other XR hip LT min 2V(w/wo pelvis)* significant soft tissue abnormalities. [place] Other XR hip LT min 2V(w/wo pelvis)* XR/XR hip LT min 2V(w/wo pelvis)* [place] Other XR hip LT min 2V(w/wo pelvis)* IMPRESSION: [place] Other XR hip LT min 2V(w/wo pelvis)* STABLE LEFT HIP REPLACEMENT [place] Other XR hip LT min 2V(w/wo pelvis)* Impression dictated by: Radha Godinez M.D.04/20/2023 11:47 AM [place] Other XR hip LT min 2V(w/wo pelvis)* Dictation Location: [facility] [place] Other XR hip LT min 2V(w/wo pelvis)* Transcribed By: PWS 04/20/23 1147 [place] Other XR hip LT min 2V(w/wo pelvis)* Dictated By: Radha Godinez MD 04/20/23 1146 [place] Other XR hip LT min 2V(w/wo pelvis)* Signed By: [place] Other XR hip LT min 2V(w/wo pelvis)* 04/20/23 114 [place] Other Glucose Glucometer (BldC) [M ass/Vol]Ordered By: Edison Veronica on 01-31-2023 Glucose [Mass/Vol] 179 mg/dL [facility] Comment on above: Random Glucose Refer ence Range is dependent on time and content of last meal. Glucose of more than 200 mg/dL in a nonstressed, ambulatory subject supports the diagnosis of Diabetes Mellitus. Automated erythrocytes count in urine sediment (number/area)Ordered By: Edison Veronica on 01-20-2023 RBC Auto (Urine sed) [#/Area] None seen [HPF] 0-4 [facility] Automated leukocytes count i n urine sediment (number/area)Ordered By: Edison Veronica on 01-20-2023 WBC Auto (Urine sed) [#/Area] 3-4 [HPF] 0-4 [facility] Basophils Auto (Bld) [#/Vol] Ordered By: Edison Veronica on 01-20-2023 Basophils (Bld) [#/Vol] 0.0 10*3/uL 0.0-0.2 [facility] Basophils/100 WBC Auto (Bld) Ordered By: Edison Veronica on 01-20-2023 Basophils/100 WBC (Bld) 1.0 % . [facility] Bilirubin Test strip Ql (U)O rdered By: Edison Veronica on 01-20-2023 Bilirubin Ql (U) Negative Negative [facility] Calcium [Mass/volume] in Ser um or PlasmaOrdered By: Edison Veronica on 01-20-2023 Calcium [Mass/Vol] 9.2 mg/dL 8.6-10.3 [facility] Carbon dioxide, total [Moles /volume] in Serum or PlasmaOrdered By: Edison Veronica on 01-20-2023 CO2 [Moles/Vol] 29.0 mmol/L 21.0-31.0 [facility] Chloride [Moles/volume] in S sima or PlasmaOrdered By: Edison Veronica on 01-20-2023 Chloride [Moles/Vol] 103 mmol/L 98-107 [facility] Color Auto (U)Ordered By: Lilian Veronica on 01-20-2023 Color (U) Yellow Yellow [facility] Creatinine [Mass/volume] in Serum or PlasmaOrdered By: Edison Veronica on 01-20-2023 Creatinine [Mass/Vol] 0.67 mg/dL 0.60-1.20 [facility] Eosinophils Auto (Bld) [#/Vo l]Ordered By: Edison Veronica on 01-20-2023 Eosinophils (Bld) [#/Vol] 0.0 10*3/uL 0.0-0.45 [facility] Eosinophils/100 WBC Auto (Bl d)Ordered By: Edison Veronica on 01-20-2023 Eosinophils/100 WBC (Bld) 0.0 % . [facility] Erythrocyte distribution wid th Auto (RBC) [Ratio]Ordered By: Edison Veronica on 01-20-2023 Erythrocyte distribution width (RBC) [Ratio] 14.0 % 11.9-15.3 [facility] Fructosamine [Moles/volume] in Serum or PlasmaOrdered By: Edison Veronica on 01-20-2023 Fructosamine [Moles/Vol] 196 umol/L 0-285 [facility] Comment on above: Published reference interval for apparently healthysubjects between age 20 and 60 is 205 - 285 umol/L and in apoorly controlled diabetic population is 228 - 563 umol/Lwith a mean of 396 umol/L.Performed at: - [place] [id number] Director: Lane Rivera PhD, Phone: [phone] Glucose [Mass/volume] in Ser um or PlasmaOrdered By: Edison Veronica on 01-20-2023 Glucose [Mass/Vol] 149 mg/dL 70-100 [facility] Comment on above: ADA recommended refe rence rangeRandom Glucose Reference Range is dependent on time and content of last meal. Glucose of more than 200 mg/dL in a nonstressed, ambulatory subject supports the diagnosis of Diabetes Mellitus. Hematocrit Auto (Bld) [Volum e fraction]Ordered By: Edison Veronica on 01-20-2023 Hematocrit (Bld) [Volume fraction] 36.6 % 34.0-46.4 [facility] Hemoglobin [Mass/volume] in BloodOrdered By: Edison Veronica on 01-20-2023 Hemoglobin (Bld) [Mass/Vol] 12.3 g/dL 11.8-15.4 [facility] Ketones Auto test strip (U) [Mass/Vol]Ordered By: Edison Veronica on 01-20-2023 Ketones (U) [Mass/Vol] Negative Negative [facility] Laboratory - UrinalysisOrder ed By: Edison Veronica on 01-20-2023 Hyaline casts LM Ql (Urine sed) None seen [LPF] 0-8 [facility] Leukocytes [#/volume] correc carola for nucleated erythrocytes in Blood by Automated counOrdered By: Edison Veronica on 01-20-2023 WBC corrected for nucl RBC Auto (Bld) [#/Vol] 3.5 10*3/uL 3.8-11.6 [facility] Lymphocytes Auto (Bld) [#/Vo l]Ordered By: Edison Veronica on 01-20-2023 Lymphocytes (Bld) [#/Vol] 1.3 10*3/uL 1.00-4.8 [facility] Lymphocytes/100 WBC Auto (Bl d)Ordered By: Edsion Veronica on 01-20-2023 Lymphocytes/100 WBC (Bld) 36.7 % . [facility] MCH Auto (RBC) [Entitic mass ]Ordered By: Edison Veronica on 01-20-2023 MCH (RBC) [Entitic mass] 27.3 pg 24.7-34.3 [facility] MCHC Auto (RBC) [Mass/Vol]Or dered By: Edison Veronica on 01-20-2023 MCHC (RBC) [Mass/Vol] 33.5 g/dL 32.0-35.0 [facility] MCV Auto (RBC) [Entitic vol] Ordered By: Edison Veronica on 01-20-2023 MCV (RBC) [Entitic vol] 81.4 fL 80-100 [facility] Monocytes Auto (Bld) [#/Vol] Ordered By: Edison Veronica on 01-20-2023 Monocytes (Bld) [#/Vol] 0.3 10*3/uL 0.0-0.8 [facility] Monocytes/100 WBC Auto (Bld) Ordered By: Edison Veronica on 01-20-2023 Monocytes/100 WBC (Bld) 7.2 % . [facility] Neutrophils Auto (Bld) [#/Vo l]Ordered By: Edison Veronica on 01-20-2023 Neutrophils (Bld) [#/Vol] 2.0 10*3/uL 1.8-7.7 [facility] Neutrophils/100 WBC Auto (Bl d)Ordered By: Edison Veronica on 01-20-2023 Neutrophils/100 WBC (Bld) 55.1 % . [facility] Nitrite Test strip Ql (U)Ord ered By: Edison Veronica on 01-20-2023 Nitrite Ql (U) Negative Negative [facility] No Panel InformationOrdered By: Edison Veronica on 01-20-2023 Estimated GFR (CKD-EPI) > 60.0 mL/Min [facility] Creatinine Clearance (Chem N/A [facility] Nucleated erythrocytes [Pres ence] in Blood by Automated countOrdered By: Edison Veronica on 01-20-2023 Nucleated RBC Auto Ql (Bld) 0.1 /100{WBC} 0-0.5 [facility] Platelet mean volume Auto (B ld) [Entitic vol]Ordered By: Edison Veronica on 01-20-2023 Platelet mean volume (Bld) [Entitic vol] 8.2 fL 6.3-10.7 [facility] Platelets Auto (Bld) [#/Vol] Ordered By: Edison Veronica on 01-20-2023 Platelets (Bld) [#/Vol] 248 10*3/uL 150-450 [facility] Potassium [Moles/volume] in Serum or PlasmaOrdered By: Edison Veronica on 01-20-2023 Potassium [Moles/Vol] 4.3 mmol/L 3.5-5.1 [facility] Protein Auto test strip (U) [Mass/Vol]Ordered By: Edison Veronica on 01-20-2023 Protein (U) [Mass/Vol] Negative Negative [facility] RBC Auto (Bld) [#/Vol]Ordere d By: Edison Veronica on 01-20-2023 RBC (Bld) [#/Vol] 4.50 10*6/uL 3.60-5.00 [facility] Serum or plasma anion gap de terminationOrdered By: Edison Veronica on 01-20-2023 Anion gap [Moles/Vol] 11.3 mmol/L 6.0-15.0 [facility] Sodium [Moles/volume] in Ser um or PlasmaOrdered By: Edison Veronica on 01-20-2023 Sodium [Moles/Vol] 139 mmol/L 136-145 [facility] Specific gravity Auto test s trip (U) [Rel density]Ordered By: Edison Veronica on 01-20-2023 Specific gravity (U) [Rel density] 1.008 1.001-1.03 0 [facility] Squamous epithelial cells de tection in urine sediment by light microscopyOrdered By: Edison Veronica on 01-20-2023 Epithelial cells.squamous LM Ql (Urine sed) None seen [HPF] 0-2 [facility] Urea nitrogen [Mass/volume] in Serum or PlasmaOrdered By: Edsion Veronica on 01-20-2023 Urea nitrogen [Mass/Vol] 16 mg/dL 7-25 [facility] Urine bacteria detection by automated methodOrdered By: Edison Veronica on 01-20-2023 Bacteria Auto Ql (U) None seen None Seen [facility] Urine clarity by refractomet ry automatedOrdered By: Edison Veronica on 01-20-2023 Clarity Refractometry automated (U) Clear Clear [facility] Urine glucose measurement by automated test strip (mass/volume)Ordered By: Edison Veronica on 01-20-2023 Glucose Auto test strip (U) [Mass/Vol] Normal mg/dL Normal [facility] Urine hemoglobin detection b y automated test stripOrdered By: Edison Veronica on 01-20-2023 Hemoglobin Auto test strip Ql (U) Negative Negative [facility] Urine leukocyte esterase det ection by automated test stripOrdered By: Edison Veronica on 01-20-2023 Leukocyte esterase Auto test strip Ql (U) 2+ Negative [facility] Urobilinogen Auto test strip (U) [Mass/Vol]Ordered By: Edison Veronica on 01-20-2023 Urobilinogen (U) [Mass/Vol] Normal mg/dL Normal [facility] WBC Auto (Bld) [#/Vol]Ordere d By: Edison Veronica on 01-20-2023 WBC (Bld) [#/Vol] 3.5 10*3/uL 3.8-11.6 [facility] pH Auto test strip (U)Ordere d By: Edison Veronica on 01-20-2023 pH (U) 6.0 [pH] 5.0-9.0 [facility] Albumin [Mass/volume] in Ser um or Plasma by Bromocresol green (BCG) dye binding methoOrdered By: Edison Veronica on 12-24-2022 Albumin BCG dye [Mass/Vol] 4.5 g/dL 3.5-5.7 [facility] Cotinine [Mass/volume] in Se rum or PlasmaOrdered By: Edison Veronica on 12-24-2022 Cotinine [Mass/Vol] <1.0 ng/mL . [facility] Comment on above: This test was develo ped and its performance characteristicsdetermined by [facility]. It has not been cleared orapproved by the Food and Drug Administration.Cotinine levels greater than 20.0 are consistent with theuse of tobacco or tobacco cessation products.Performed at: - [facility] [id number] Director: Antonio Dumont MD, Phone: [phone] Glucose mean value [Mass/vol ume] in Blood Estimated from glycated hemoglobinOrdered By: Edison Veronica on 12-24-2022 Average glucose Estimated from glycated hemoglobin (Bld) [Mass/Vol] 111 mg/dL [facility] Hemoglobin A1c percentageOrd ered By: Edison Veronica on 12-24-2022 HbA1c (Bld) [Mass fraction] 5.5 % 4.3-5.6 [facility] Comment on above: Increased risk for d iabetes: 5.7 - 6.4diabetes: >6.4glycemic control for adults with diabetes: <7.0 Hemoglobin [Mass/volume] in BloodOrdered By: Edison Veronica on 12-24-2022 Hemoglobin (Bld) [Mass/Vol] 13.0 g/dL 11.8-15.4 [facility] Nicotine [Mass/volume] in Se rum or PlasmaOrdered By: Edison Veronica on 12-24-2022 Nicotine [Mass/Vol] <1.0 ng/mL . [facility] Comment on above: This test was develo ped and its performance characteristicsdetermined by [employer]. It has not been cleared orapproved by the Food and Drug Administration.Nicotine levels greater than 2.0 are consistent with theuse of tobacco or tobacco cessation products. Vitamin D+Metabolites [Mass/ volume] in Serum or PlasmaOrdered By: Edison Veronica on 12-24-2022 Vitamin D+Metabolites [Mass/Vol] 50.9 ng/mL 30-100 [facility] Comment on above: VITAMIN D STATUS [...] : DR GINA GARZA . Admission #: [id number] Family : Order #: [id number] CLICK HERE TO VIEW EXAM RADIOLOGY REPORT [...] aml cancer at age 24. LOCATION: [facility] BREAST COMPOSITION: Heterogeneously dense,which may [...] MD on 09/09/2022 at 12:06 Normal [facility] CBC AUTO DIFFon 07-08-2022 BASO # 0.0 103/ul Normal 0.0-0.1 [facility] Comment on above: Performed By: #### C BC #### [facility] [address] [address] [address] Juliana Brooks Basophils/100 WBC (Bld) 0.9 % Normal 0.2-2.0 [facility] Comment on above: Performed By: #### C BC #### [facility] [address] [place] [address] Dr. Juliana Brooks EO # 0.0 103/ul Normal 0.0-0.7 [facility] Comment on above: Performed By: #### C BC #### [facility] [address] [place] [address] Dr. Juliana Brooks Eosinophils/100 WBC (Bld) 0.4 % Critically low 0.9-7.0 [facility] Comment on above: Performed By: #### C BC #### [facility] [address] [place] [address] Dr. Juliana Brooks Erythrocyte distribution width (RBC) [Ratio] 16.3 % Critically high 11.0-15.0 [facility] Comment on above: Performed By: #### C BC #### [facility] [address] [place] [address] Dr. Juliana Brooks Hematocrit (Bld) [Volume fraction] 37.3 % Normal 36.0-48.0 [facility] Comment on above: Performed By: #### C BC #### [facility] [address] [place] [address] Dr. Juliana Brooks Hemoglobin (Bld) [Mass/Vol] 11.1 g/dL Critically low 12.0-16.0 [facility] Comment on above: Performed By: #### C BC #### [facility] [address] [place] [address] Dr. Juliana Brooks IG # 0.01 10e3/ul Normal 0.00-0.03 [facility] Comment on above: Performed By: #### C BC #### [facility] [address] [place] [address] Dr. Juliana Brooks IG % 0.2 % Normal 0.0-0.5 [facility] Comment on above: Performed By: #### C BC #### [facility] [address] [place] [address] Dr. Juliana Brooks LYMPH # 1.6 103/ul Normal 1.2-3.8 [facility] Comment on above: Performed By: #### C BC #### [facility] [address] [place] [address] Dr. Juliana Brooks Lymphocytes/100 WBC (Bld) 33.0 % Normal 20.5-60.0 [facility] Comment on above: Performed By: #### C BC #### [facility] [address] [place] [address] Dr. Juliana Brooks MANUAL DIFF REQ NO Normal [facility] Comment on above: Performed By: #### C BC #### [facility] [address] [place] [address] Dr. Juliana Brooks MCH (RBC) [Entitic mass] 23.2 pg Critically low 26.7-34.0 [facility] Comment on above: Performed By: #### C BC #### [facility] [address] [place] [address] Dr. Juliana Brooks MCHC (RBC) [Mass/Vol] 29.8 g/dL Critically low 29.9-35.2 [facility] Comment on above: Performed By: #### C BC #### [facility] [address] [place] [address] Dr. Juliana Brooks MCV (RBC) [Entitic vol] 78.0 fL Critically low 81.0-99.0 [facility] Comment on above: Performed By: #### C BC #### [facility] [address] [place] [address] Dr. Juliana Brooks MONO # 0.5 103/ul Normal 0.3-0.8 [facility] Comment on above: Performed By: #### C BC #### [facility] [address] [place] [address] Dr. Juliana Brooks Monocytes/100 WBC (Bld) 10.0 % Normal 1.7-12.0 [facility] Comment on above: Performed By: #### C BC #### [facility] [address] [place] [address] Dr. Juliana Brooks NEUT # 2.6 103/ul Normal 1.4-6.5 [facility] Comment on above: Performed By: #### C BC #### [facility] [address] [place] [address] Dr. Juliana Brooks Neutrophils/100 WBC (Bld) 55.5 % Normal 43.0-75.0 [facility] Comment on above: Performed By: #### C BC #### [facility] [address] [place] [address] Dr. Juliana Brooks Platelet mean volume (Bld) [Entitic vol] 10.2 fL Normal 9.5-13.5 [facility] Comment on above: Performed By: #### C BC #### [facility] [address] [place] [address] Dr. Juliana Brooks PLT 320 103/ul Normal 150-450 [facility] Comment on above: Performed By: #### C BC #### [facility] [address] [place] [address] Dr. Juliana Brooks RBC 4.78 106/ul Normal 4.20-5.40 [facility] Comment on above: Performed By: #### C BC #### [facility] [address] [place] [address] Dr. Juliana Brooks WBC 4.7 103/ul Normal 4.0-11.0 [facility] Comment on above: Performed By: #### C BC #### [facility] [address] [place] [address] Dr. Juliana Brooks FREE THYROXINE INDEX T7on FTI 3.24 Normal 1.30-4.50 [facility] Comment on above: Performed By: #### T 7, TSH, CMP, LIPID #### [facility] [address] [place] [address] Dr. Juliana Brooks T3U 36.0 % Normal 30.0-39.0 [facility] Comment on above: Performed By: #### T 7, TSH, CMP, LIPID #### [facility] [address] [place] [address] Dr. Juliana Brooks T4 [Mass/Vol] 9.00 ug/dL Normal 4.80-13.90 [facility] Comment on above: Performed By: #### T 7, TSH, CMP, LIPID #### [facility] [address] [address] [address] Juliana Brooks GLYCOHEMOGLOBIN A1Con 2022 ADA RECOMMENDATION SEE BELOW Normal [facility] Comment on above: Result Comment: ADA RECOMMENDED LIMIT 4.0 - 6.0 ADA THERAPEUTIC TARGET < 7.0 ACTION SUGGESTED > 7.0 Performed By: #### A 1C #### [facility] [address] [address] [address] Juliana Brooks Glucose [Mass/Vol] 137 mg/dL Normal [facility] Comment on above: Performed By: #### A 1C #### [facility] [address] [address] [address] Juliana Brooks HbA1c (Bld) [Mass fraction] 6.4 % Critically high 4.5-6.2 [facility] Comment on above: Performed By: #### A 1C #### [facility] [address] [address] [address] Juliana Brooks IRONon 07-08-2022 Iron [Mass/Vol] 54.0 ug/dL Normal 50.0-170.0 [facility] Comment on above: Performed By: #### I SARAH #### [facility] [address] [address] [address] Juliana Brooks LIPID PROFILEon 07-08-2022 CHOL-HDL RATIO NORM SEE BELOW Normal [facility] Comment on above: Result Comment: 3.3 - 4.4 LOW RISK 4.4 - 7.1 AVERAGE RISK 7.1 - 11.0 MODERATE RISK >11.0 HIGH RISK Performed By: #### T 7, TSH, CMP, LIPID #### [facility] [address] [address] [address] Juliana Brooks Cholesterol [Mass/Vol] 159 mg/dL Normal <=200 [facility] Comment on above: Performed By: #### T 7, TSH, CMP, LIPID #### [facility] [address] [address] [address] Juliana Brooks Cholesterol in HDL [Mass/Vol] 74 mg/dL Critically high 40-60 [facility] Comment on above: Performed By: #### T 7, TSH, CMP, LIPID #### [facility] [address] [address] [address] Juliana Brooks Cholesterol in LDL [Mass/Vol] 74.4 mg/dL Normal [facility] Comment on above: Performed By: #### T 7, TSH, CMP, LIPID #### [facility] [address] [address] [address] Juliana Brooks Cholesterol.total/Cho lesterol in HDL [Mass ratio] 2.1 {ratio} Normal [facility] Comment on above: Performed By: #### T 7, TSH, CMP, LIPID #### [facility] [address] [address] [address] Juliana Brooks HDL NORMAL > or = 60 mg/dl - LO W CARDIOVASCULAR RISK <40 mg/dl - HIGH CARDIOVASCULAR RISK Normal [facility] Comment on above: Performed By: #### T 7, TSH, CMP, LIPID #### [facility] [address] [address] [address] Juliana Brooks LDL CALC NORMAL SEE BELOW Normal [facility] Comment on above: Result Comment: <100 mg/dl OPTIMAL 100 - 129 mg/dl NEAR OR ABOVE OPTIMAL 130 - 159 mg/dl BORDERLINE HIGH 160 - 189 mg/dl HIGH >190 mg/dl VERY HIGH Performed By: #### T 7, TSH, CMP, LIPID #### [facility] [address] [address] [address] Juliana Brooks Triglyceride [Mass/Vol] 53 mg/dL Normal <=150 [facility] Comment on above: Performed By: #### T 7, TSH, CMP, LIPID #### [facility] [address] [address] [address] Juliana Brooks VLDL CALC 10.6 mg/dL Normal [facility] Comment on above: Performed By: #### T 7, TSH, CMP, LIPID #### [facility] [address] [address] [address] Juliana Brooks PROF 14(COMP METB)on 023 Albumin [Mass/Vol] 3.6 g/dL Normal 3.4-5.0 [facility] Comment on above: Performed By: #### T 7, TSH, CMP, LIPID #### [facility] [address] [address] [address] Juliana Brooks Albumin/Globulin [Mass ratio] 1.1 {ratio} Normal [facility] Comment on above: Performed By: #### T 7, TSH, CMP, LIPID #### [facility] [address] [address] [address] Juliana Brooks ALP [Catalytic activity/Vol] 107 U/L Normal 46-116 [facility] Comment on above: Performed By: #### T 7, TSH, CMP, LIPID #### [facility] [address] [place] [address] Dr. Juliana Brooks ALT [Catalytic activity/Vol] 26 U/L Normal 14-59 [facility] Comment on above: Performed By: #### T 7, TSH, CMP, LIPID #### [facility] [address] [address] [address] Juliana Brooks Anion gap [Moles/Vol] 11.1 mmol/L Normal [facility] Comment on above: Performed By: #### T 7, TSH, CMP, LIPID #### [facility] [address] [place] [address] Dr. Juliana Brooks AST [Catalytic activity/Vol] 19 U/L Normal 15-37 [facility] Comment on above: Performed By: #### T 7, TSH, CMP, LIPID #### [facility] [address] [address] [address] Juliana Brooks Bilirubin [Mass/Vol] 0.3 mg/dL Normal 0.2-1.0 [facility] Comment on above: Performed By: #### T 7, TSH, CMP, LIPID #### [facility] [address] [address] [address] Juliana Brooks Calcium [Mass/Vol] 9.2 mg/dL Normal 8.5-10.[address] [facility] Comment on above: Performed By: #### T 7, TSH, CMP, LIPID #### [facility] [address] [address] [address] Juliana Brooks Chloride [Moles/Vol] 106 mmol/L Normal 98-107 [facility] Comment on above: Performed By: #### T 7, TSH, CMP, LIPID #### [facility] [address] [address] [address] Juliana Brooks CO2 [Moles/Vol] 28.3 mmol/L Normal 21.0-32.0 [facility] Comment on above: Performed By: #### T 7, TSH, CMP, LIPID #### [facility] [address] [place] [address] Dr. Juliana Brooks Creatinine [Mass/Vol] 0.60 mg/dL Normal 0.55-1.02 [facility] Comment on above: Performed By: #### T 7, TSH, CMP, LIPID #### [facility] [address] [place] [address] Dr. Juliana Brooks EGFR-AF CHILEAN >60 Normal >=60 [facility] Comment on above: Performed By: #### T 7, TSH, CMP, LIPID #### [facility] [address] [place] [address] Dr. Juliana Brooks EGFR-NON AF CHILEAN >60 Normal >=60 [facility] Comment on above: Performed By: #### T 7, TSH, CMP, LIPID #### [facility] [address] [place] [address] Dr. Juliana Brooks Globulin (S) [Mass/Vol] 3.4 g/dL Normal [facility] Comment on above: Performed By: #### T 7, TSH, CMP, LIPID #### [facility] [address] [place] [address] Dr. Juliana Brooks Glucose [Mass/Vol] 104 mg/dL Normal 74-[address] [facility] Comment on above: Performed By: #### T 7, TSH, CMP, LIPID #### [facility] [address] [place] [address] Dr. Juliana Brooks Potassium [Moles/Vol] 4.4 mmol/L Normal 3.5-5.1 [facility] Comment on above: Performed By: #### T 7, TSH, CMP, LIPID #### [facility] [address] [address] [address] Juliana Brooks Protein [Mass/Vol] 7.0 g/dL Normal 6.4-8.[address] [facility] Comment on above: Performed By: #### T 7, TSH, CMP, LIPID #### [facility] [address] [address] [address] Juliana Brooks Sodium [Moles/Vol] 141 mmol/L Normal 136-[address] [facility] Comment on above: Performed By: #### T 7, TSH, CMP, LIPID #### [facility] [address] [address] [address] Juliana Brooks Urea nitrogen [Mass/Vol] 11.0 mg/dL Normal 7.0-18.0 [facility] Comment on above: Performed By: #### T 7, TSH, CMP, LIPID #### [facility] [address] [address] [address] Juliana Brooks Urea nitrogen/Creatinine [Mass ratio] 18.3 mg/mg Normal [facility] Comment on above: Performed By: #### T 7, TSH, CMP, LIPID #### [facility] [address] [place] [address] Dr. Juliana Brooks TSHon 07-08-2022 TSH Qn m[IU]/L Critically low 0.358-3.74 0 [facility] Comment on above: Performed By: #### T 7, TSH, CMP, LIPID #### [facility] [address] [place] [address] Dr. Juliana Brooks MRI LSPINE WO CONon [...] by: IRENE AGUILERA Date: 2021-12-24 16:08 Normal [facility] XR LSPINE MIN 4 VIEWSon 11-16 XR [...] by: ALE PONCE Date: 2021-11-26 18:41 Normal [facility] Ambulatory Visit Summaryon 0 07-24-2021 Ambulatory Visit [...] inguinal hernia Sleep apnea Normal [facility] General Surgery Office/Clini c Noteon [...] Not Given Patient Refuses Normal [facility] Comment on above: Result Comment: [...] Where: General Surgery Khang/Jens Cardenas [facility] General Surgery Office/Clini c Noteon [...] Not Given Patient Refuses Normal [facility] Comment on above: Result Comment: Elec tronically Signed By: KHANG BARTH, Jerry Warren\Date and Time Signed: 07/10/21 14:23 EDT Operative Reporton Operative Report [id number]:127 Normal [facility] Lab Reportson 06-29-2021 Lab Reports [id number]#1.00CD:127 Normal [facility] ECG 12-Leadon 06-24-2021 ECG 12-Lead [id number]#1.00CD:127 [facility] Pre-Certification Formon Pre-Certification Form [id number]#1.00CD:127 [facility] RAD - CT Reporton 06-14-2021 RAD - CT Report [id number]#1.00CD:127 [facility] Consent for Procedure/Surger yon 06-11-2021 Consent for Procedure/Surgery [id number]#1.00CD:127 [facility] Ambulatory Visit Summaryon 0 06-10-2021 Ambulatory Visit [...] cervical spine Sleep apnea Normal [facility] Physician Referralon 022 Physician Referral [id number]#1.00CD:127 Normal [facility] FLUORO FOR SURGICAL PROCEDUR ESOrdered By: Mejia Griffin on 11-18-2020 Jamie, Chpo Incoming R adiant Results From [employer] - 11/18/2020 2:23 PM EDT EXAMINATION: FLUORO FOR SURGICAL PROCEDURES CLINICAL HISTORY: R52 Pain ICD10 COMPARISONS: None available. FINDINGS: Fluoroscopic assistance was provided during ACDF, C5-6 and C6-7 The total radiation time is 31.9 seconds, radiation dose is 3.62mGy. IMPRESSION: Intraprocedural fluoroscopic support has been provided. Please refer to the procedure report. [employer] Work Phone: [employer] Work Phone: Surgical Specimenon 11-19-19 21 Surgical Specimen [facility] [address] [place], [place] [id number] FINAL SURGICAL PATHOLOGY REPORT Patient Name: ANA CRUZ Accession No: [id number] Age Sex: 1970 Location: DIS [id number] Account No: [id number] Collected: 11/18/2020 Med Rec No: [id number] Received: 11/18/2020 Attend Phys: MEJIA GRIFFIN Completed: [...] in three cassettes following decalcification. LUAN CPT: 84943 X1 11607 X1 JERAMIE ERVIN M.D. 11/20/2020 Electronically signed out by Page 1 of [address] [facility] Comment on above: Performed By: #### S UR #### [facility] [address] [place] [address] COVID-19, PCRon 11-08-2020 SARS-CoV-2 (COVID-19) RNA AISHA+probe Ql (Unsp spec) Not detected Normal Not Detect [facility] Comment on above: Result Comment: Test ing was performed using [employer] SARS-CoV-2 Assay. Negative results do not preclude [...] oropharyngeal and mid-turbinate specimens. Patient Fact Sheet: https://www.fda.gov/media/843554/download Provider Fact Sheet: https://www.fda.gov/media/890521/download FDA Specimen Types Link: https://www.fda.gov/medical-devices/ astvprmqyjf-xspuy-75-hkx-xumgwcq-hrknhln/lrhr-obwmxdu-tsxv-cov-2 Methodology: RT-PCR Performed By: #### C OVB #### [facility] [address] [place] [address] CBC With Platelet No Differe ntialon 11-07-2020 Erythrocyte distribution width (RBC) [Ratio] 15.8 % Critically high 11.5-14.5 [facility] Comment on above: Performed By: #### C BCND #### [facility] [address] [place] [address] Hematocrit (Bld) [Volume fraction] 37.5 % Normal 37.0-47.0 [facility] Comment on above: Performed By: #### C BCND #### [facility] [address] [place] [address] Hemoglobin (Bld) [Mass/Vol] 12.1 g/dL Normal 12.0-16.0 [facility] Comment on above: Performed By: #### C BCND #### [facility] [address] [place] [address] MCH (RBC) [Entitic mass] 26.2 pg Low 27.0-31.3 [facility] Comment on above: Performed By: #### C BCND #### [facility] [address] [place] [address] MCHC 32.3 % Low 33.0-37.0 [facility] Comment on above: Performed By: #### C BCND #### [facility] [address] [place] [address] MCV (RBC) [Entitic vol] 81.3 fL Low 82.0-100.0 [facility] Comment on above: Performed By: #### C BCND #### [facility] [address] [place] [address] Platelets (Bld) [#/Vol] 301 10*3/uL Normal 130-400 [facility] Comment on above: Performed By: #### C BCND #### [facility] [address] [place] [address] RBC (Bld) [#/Vol] 4.61 10*6/uL Normal 4.20-5.40 [facility] Comment on above: Performed By: #### C BCND #### [facility] [address] [place] [address] WBC (Bld) [#/Vol] 3.7 10*3/uL Low 4.8-10.8 [facility] Comment on above: Performed By: #### C BCND #### [facility] [address] [place] [address] Partial Thromboplastin Timeo n 11-07-2020 aPTT Coag (Bld) [Time] 28.0 s Normal 24.4-36.8 [facility] Comment on above: Result Comment: Effe ctive 02/20/2020: Heparin Therapeutic Range: 64.0 ? 98.0 seconds. Performed By: #### P TT #### [facility] [address] [place] [address] Prothrombin Timeon 1 INR Coag (PPP) [Relative time] 1.0 {INR} Normal [facility] Comment on above: Performed By: #### P T #### [facility] [address] [place] [address] PT Coag (PPP) [Time] 13.3 s Normal 12.3-14.9 [facility] Comment on above: Performed By: #### P T #### [facility] [address] [place] [address] Type and Screen Capture 3 sc rn cellon 11-07-2020 Type and Screen Capture 3 scrn cell PATIENT: ESTELA PEREZ LOC: [facility] BILL# : [id number] : 1970 SEX: F ORDERED BY: TIM CASTILLO ORDERED : 11/07/2020 13:32 COLLECTED: 11/07/2020 13:32 ORDER : [id number] RECEIVED : 11/07/2020 19:33 TEST NAME RESULT UNITS RANGES ABN FL ST ABORH Capture O POS F Antibody 3 Cell Scrn Captu NEG F Normal [facility] Comment on above: Performed By: #### T S3C #### [facility] [address] [place] [id number] MRI CERVICAL SPINE WO CONTRA STOrdered By: [...] gland, may consider dedicated thyroid ultrasound imaging. [facility] [employer] Work Phone: EXAMINATION: MRI CER VICAL SPINE [...] hypertrophy with mild left neural foraminal narrowing. [facility] Work Phone: Jamie, Chpo Incoming R adiant Results From [employer] [facility] - 09/10/2020 12:02 PM EDT EXAMINATION: MRI [...] gland, may consider dedicated thyroid ultrasound imaging. [facility] Phone: [facility] Phone: MRI CERVICAL SPINE WO CONTRA STon [...] Leandro Spaulding MD 09/10/[address] [facility] COVID-19, NAAon 09-04-2020 SARS-CoV-2 (COVID-19) RNA AISHA+probe Ql (Unsp spec) Not detected Normal Not Detect [facility] Comment on above: Result Comment: This nucleic acid amplification test was developed and its performance characteristics determined by [facility]. Nucleic acid amplification tests include RT-PCR and [...] detected) result in this assay. Performed at: [address] [id number] [employer] Specialist: Lane Rivera PhD, Phone: [phone] Performed By: #### I RCOV #### [facility] [address] [place] [address] COVID-19, NAAon 05-18-2021 Source Swab Anterior nares Normal [facility] Comment on above: Performed By: #### I RCOV #### [facility] [address] [place] [id number] Vital Signs Date Time Vital Sign Value Performing Clinician Facility 01-07-2025 16:09-0400 Body height 162.6 cm Ze Viviane DO Work Phone: [facility] 01-07-2025 16:09-0400 Body mass index (BMI) [Ratio] 32.01 kg/m2 Ze Viviane DO Work Phone: [facility] 01-07-2025 16:09-0400 Body weight 84.6 kg Ze Viviane DO Work Phone: [facility] 01-07-2025 16:09-0400 Diastolic blood pressure 72 mm[Hg] Ze Viviane DO Work Phone: [facility] 01-07-2025 16:09-0400 Systolic blood pressure 126 mm[Hg] Ze Viviane DO Work Phone: [facility] 12-05-2024 15:33-0400 Body mass index (BMI) [Ratio] 32.26 kg/m2 Ze Viviane DO Work Phone: [facility] 12-05-2024 15:33-0400 Body weight 82.61 kg Ze Viviane DO Work Phone: [facility] 12-05-2024 15:33-0400 Diastolic blood pressure 82 mm[Hg] Ze Viviane DO Work Phone: [facility] 12-05-2024 15:33-0400 Systolic blood pressure 118 mm[Hg] Ze Viviane DO Work Phone: [facility] 10-25-2024 10:15-0400 Diastolic blood pressure 98 mm[Hg] Gina Garza MD Work Phone: [facility] 10-25-2024 10:15-0400 Heart rate 85 /min Gina Garza MD Work Phone: [facility] 10-25-2024 10:15-0400 Respiratory rate 16 /min Gina Garza MD Work Phone: [facility] 10-25-2024 10:15-0400 SaO2% (BldA) [Mass fraction] 96 % Gina Garza MD Work Phone: [facility] 10-25-2024 10:15-0400 Systolic blood pressure 165 mm[Hg] Gina Garza MD Work Phone: [facility] 10-25-2024 08:07-0400 Body height 162.56 cm Gina Garza MD Work Phone: [facility] 10-25-2024 08:07-0400 Body weight 81.64 kg Gina Garza MD Work Phone: [facility] 05-30-2024 15:46-0500 Body mass index (BMI) [Ratio] 31.18 kg/m2 Ze Viviane DO Work Phone: [facility] 05-30-2024 15:46-0500 Body weight 79.83 kg Ze Viviane DO Work Phone: [facility] 05-30-2024 15:46-0500 Diastolic blood pressure 78 mm[Hg] Ze Viviane DO Work Phone: [facility] 05-30-2024 15:46-0500 Systolic blood pressure 122 mm[Hg] Ze Viviane DO Work Phone: [facility] 02-16-2023 15:45-0400 Body height 162.56 cm Edison Veronica II Other [facility] Other 02-16-2023 15:45-0400 Body mass index (BMI) [Ratio] 25.4 kg/m2 Edison Stonewall II Other [facility] Other 02-16-2023 15:45-0400 Body weight 67.13 kg Edison Veronica II Other [facility] Other 01-31-2023 18:30-0400 Diastolic blood pressure 78 mm[Hg] MD Gina Garza Work Phone: [facility] 01-31-2023 18:30-0400 Heart rate 98 /min MD Gina Garza Work Phone: [facility] 01-31-2023 18:30-0400 Respiratory rate 16 /min MD Gina Garza Work Phone: [facility] 01-31-2023 18:30-0400 SaO2% (BldA) [Mass fraction] 96 % MD Gina Garza Work Phone: [facility] 01-31-2023 18:30-0400 Systolic blood pressure 116 mm[Hg] MD Gina Garza Work Phone: [facility] 01-31-2023 16:45-0400 Body temperature 98 [degF] MD Gina Garza Work Phone: [facility] 01-31-2023 16:15-0400 Inhaled oxygen flow rate 10 L/min MD Gina Garza Work Phone: [facility] 01-31-2023 12:49-0400 Body height 160.02 cm MD Gina Garza Work Phone: [facility] 01-31-2023 12:49-0400 Body mass index (BMI) [Ratio] 26.5 kg/m2 MD Gina Garza Work Phone: [facility] 01-31-2023 12:49-0400 Body weight 68 kg MD Gina Garza Work Phone: [facility] 01-27-2023 15:30-0400 Body height 162.56 cm Edison Veronica II Other [facility] Other 01-27-2023 15:30-0400 Body mass index (BMI) [Ratio] 25.44 kg/m2 Edison Veronica II Other [facility] Other 01-27-2023 15:30-0400 Body weight 67.22 kg Edison Veronica II Other [facility] Other 07-05-2022 12:15-0400 Body height 162.56 cm Sawyer Greer Other [facility] Other 01-26-2022 10:40-0400 Body height 162.56 cm Santiago Cano Other [facility] Other 01-26-2022 10:40-0400 Body mass index (BMI) [Ratio] 36.9 kg/m2 Santiago Cano Other [facility] Other 01-26-2022 10:40-0400 Body weight 97.52 kg Santiago Cano Other [facility] Other 07-24-2021 13:31-0400 Body temperature 97.88 [degF] Jerry QUIÑONEZ [facility] [place] 07-10-2021 14:00-0400 Body temperature 97.34 [degF] Jerry QUIÑONEZ [facility] [place] 11-19-2020 08:27-0400 Body temperature 98.1 [degF] Mejia Griffin MD Work Phone: [facility] Work Phone: 11-19-2020 08:27-0400 Diastolic blood pressure 78 mm[Hg] Mejia Griffin MD Work Phone: [facility] Work Phone: 11-19-2020 08:27-0400 Heart rate 109 /min Mejia Griffin MD Work Phone: [facility] Work Phone: 11-19-2020 08:27-0400 SaO2% (BldA) [Mass fraction] 98 % Mejia Griffin MD Work Phone: [facility] Work Phone: 11-19-2020 08:27-0400 Systolic blood pressure 118 mm[Hg] Mejia Griffin MD Work Phone: [facility] Work Phone: 11-19-2020 04:29-0400 Respiratory rate 18 /min Mejia Griffin MD Work Phone: [facility] Work Phone: 11-18-2020 08:30-0400 Body height 162.6 cm Mejia Griffin MD Work Phone: [facility] Work Phone: 11-18-2020 08:30-0400 Body mass index (BMI) [Ratio] 34.84 kg/m2 Mejia Griffin MD Work Phone: [facility] Work Phone: 11-18-2020 08:30-0400 Body weight 92.08 kg Mejia Griffin MD Work Phone: [facility] Work Phone: 09-09-2020 14:57-0400 Diastolic blood pressure 75 mm[Hg] [place] 2 [facility] Work Phone: 09-09-2020 14:57-0400 Heart rate 93 /min [place] Work Phone: 09-09-2020 14:57-0400 Respiratory rate 16 /min [place] [facility] Work Phone: 09-09-2020 14:57-0400 Systolic blood pressure 169 mm[Hg] [place] 2 [facility] Work Phone: 09-09-2020 12:41-0400 Body height 162.6 cm [place] 2 [employer] Phone: 09-09-2020 12:41-0400 Body mass index (BMI) [Ratio] 34.67 kg/m2 Dmitry Decker [employer] Phone: 09-09-2020 12:41-0400 Body weight 91.63 kg Dmitry Decker [employer] Phone: 09-09-2020 12:41-0400 SaO2% (BldA) [Mass fraction] 99 % [place] [facility] [employer] Phone: Encounters Encounter Date Encounter Type Care [...] same day surgery center Gina Teran MD -[facility] Work Phone: Start: 10-25-2024 End: 10-25-2024 ambulatory Gina Garza MD Work Phone: [facility] Work Phone: Start: 05-30-2024 End: 05-30-2024 Office outpatient visit 15 minutes Ze Viviane DO Work Phone: [facility] Comment on above: Dyspareunia in femal e Start: 05-30-2024 End: 05-30-2024 Bamboo flowsheet Ze Viviane DO Work Phone: [facility] Start: 05-30-2024 End: 05-30-2024 Bamboo flowsheet Ze Viviane DO Work Phone: [facility] Start: 03-13-2024 End: 03-26-2024 Clinisync Result Encounter Ez Viviane DO Work Phone: [facility] Unsolicited Start: 03-13-2024 End: 03-26-2024 Clinisync Result Encounter Ze Viviane DO Work Phone: [facility] Unsolicited Start: 03-13-2024 End: 03-13-2024 Patient encounter procedure Ze Viviane DO Work Phone: [facility] Start: 03-13-2024 End: 03-13-2024 Periodic preventive med est patient 40-64yrs Ze Viviane DO Work Phone: [facility] Comment on above: Well woman exam with routine gynecological exam; Encounter for screening mammogram for malignant neoplasm of breast; Asymptomatic menopausal state; Dyspareunia in female Start: 02-02-2024 End: 02-02-2024 ambulatory MD Gina Garaz Work Phone: [facility] Work Phone: Start: 02-02-2024 End: 02-02-2024 Patient encounter procedure MD Gina Garza Work Phone: On [facility] Of [facility] Work Phone: Start: 04-20-2023 Office outpatient vi sit 15 minutes Edison Stonewall II [facility] Start: 04-20-2023 End: 04-20-2023 ambulatory MD Gina Garza Work Phone: [facility] Work Phone: Start: 04-20-2023 End: 04-20-2023 Patient encounter procedure MD Gina Garza Work Phone: [facility] Start: 03-17-2023 End: 03-17-2023 ambulatory MD Gina Garza Work Phone: [facility] Work Phone: Start: 03-17-2023 End: 03-17-2023 Patient encounter procedure MD Gina Garza Work Phone: [facility] Start: 03-03-2023 (Post-Op) Post-Op Edison Jeremías II [facility] Start: 03-03-2023 End: 03-03-2023 ambulatory Edison Stonewall II Other [facility] Other Start: 02-16-2023 (Post-Op) Post-Op Edison Jeremías II [facility] Start: 02-16-2023 End: 02-16-2023 ambulatory Edison Stonewall II Other [facility] Other Start: 02-10-2023 (Post-Op) Post-Op Edison Jeremías II [facility] Start: 02-10-2023 End: 02-10-2023 ambulatory Edison Jeremías II Other [facility] Other Start: 02-09-2023 End: 02-09-2023 ambulatory Edison Stonewall II Other [facility] Other Start: 02-09-2023 Telephone encounter Edison Spenceisle II [facility] Start: 01-31-2023 End: 01-31-2023 Admission to same day surgery center MD Gina Garza Work Phone: [facility] [place] Start: 01-31-2023 End: 01-31-2023 ambulatory MD Gina Garza Work Phone: [facility] Work Phone: Start: 01-27-2023 End: 01-27-2023 Discharged Recurring MD Gina Garza Work Phone: [facility] [place] Start: 01-27-2023 End: 01-27-2023 ambulatory MD Gina Garza Work Phone: [facility] Other Start: 01-27-2023 Patient encounter procedure Edison Spenceisle II [facility] Start: 01-21-2023 (Prolonged) Prolonge d Services Edison Stonewall II [facility] Start: 01-21-2023 End: 01-21-2023 ambulatory Edison Pastorle II Other [facility] Other Start: 01-20-2023 End: 01-20-2023 ambulatory MD Gina Garza Work Phone: [facility] Work Phone: Start: 01-20-2023 End: 01-20-2023 Patient encounter procedure MD Gina Garza Work Phone: [facility] Work Phone: Start: 12-24-2022 End: 12-24-2022 ambulatory MD Gina Garza Work Phone: [facility] Work Phone: Start: 12-24-2022 End: 12-24-2022 Patient encounter procedure MD Gina Garza Work Phone: [facility]-Lab [facility] Start: 12-24-2022 End: 12-24-2022 ambulatory MD Gina Garza Work Phone: [facility] Work Phone: Start: 12-24-2022 End: 12-24-2022 Patient encounter procedure MD Gina Garza Work Phone: [facility] Start: 12-16-2022 End: 12-16-2022 ambulatory Sawyer Greer Other [facility] Other Start: 12-16-2022 Office outpatient vi sit 25 minutes Sawyer Greer [facility] [place] Start: 12-16-2022 Telephone encounter Sawyer MARRERO [facility] [place] Start: 09-09-2022 End: 09-10-[address] GINA GARZA . Facility: Start: 08-24-2022 End: 08-24-2022 Patient encounter procedure MD Gina Garza Work Phone: [facility] Start: 08-24-2022 End: 08-24-2022 ambulatory MD Gina Garza Work Phone: [facility] Work Phone: Start: 08-24-2022 Office outpatient vi sit 25 minutes Sawyer Greer [facility] [place] Start: 08-16-2022 (Procedure) Short Sawyer Greer [facility] Start: 08-16-2022 End: 08-16-2022 ambulatory Sawyer Greer Other [facility] Other Start: 08-04-2022 End: 08-04-2022 ambulatory Sawyer Greer Other [facility] Other Start: 08-04-2022 Office outpatient vi sit 25 minutes Sawyer Greer [facility] [place] Start: 07-11-2022 Encounter for genera l adult medical examination without abnormal findings DR GINA GARZA . [facility] Start: 07-08-2022 End: 07-09-[address] GINA GARZA . Facility:[facility] Start: 07-08-2022 End: 07-09-2022 Encounter for general adult medical examination without abnormal findings DR GINA GARZA . Facility:[facility] Start: 07-05-2022 End: 07-05-2022 ambulatory Sawyer Greer Other [facility] Other Start: 07-05-2022 Office outpatient vi sit 25 minutes Sawyer Greer [facility] [place] Start: 04-19-[address] GINA GARZA . Facili ty:[facility] Start: 02-23-2022 End: 02-23-2022 ambulatory Sawyer Greer Other [facility] Other Start: 02-23-2022 Office outpatient vi sit 15 minutes Sawyer Greer [facility] [place] Start: 02-15-2022 (Procedure) Short Sawyer Greer [facility] Start: 02-15-2022 End: 02-15-2022 ambulatory Sawyer Greer Other [facility] Other Start: 02-01-2022 End: 02-01-2022 ambulatory Sawyer Greer Other [facility] Other Start: 02-01-2022 Office outpatient ne w 45 minutes Sawyer Greer [facility] [place] Start: 02-01-2022 Telephone encounter Sawyer Greer [facility] Start: 01-26-2022 End: 01-26-2022 ambulatory Santiago Cano Other [facility] Other Start: 01-26-2022 Office outpatient ne w 45 minutes Santiago Cano [facility] Start: 12-24-2021 End: 12-25-[address] GINA GARZA . Facility:[facility] Start: 11-26-2021 End: 11-27-[address] GINA GARZA . Facility:[facility] Start: 07-24-2021 End: 07-24-2021 Patient encounter procedure Jerry QUIÑONEZ General Surgery N[facility] [place] Start: 07-10-2021 End: 07-10-2021 Patient encounter procedure Jerry Tomasa QUIÑONEZ General Surgery Nill/Said [place] Start: 11-18-2020 End: 11-19-2020 Evaluation and management of inpatient [facility] Start: 11-18-2020 End: 11-21-2020 ambulatory MEJIA GRIFFIN [facility] Start: 11-18-2020 End: 11-19-2020 Evaluation and management of inpatient Mejia Griffin MD Work Phone: [facility] Comment on above: Post-op pain (Primar y Dx); Pain; Muscle spasm Start: 11-18-2020 End: 11-20-2020 Subsequent hospital visit by physician Mejia Griffin MD Work Phone: [facility] Radiology Comment on above: Pain Start: 09-09-2020 End: 09-12-2020 ambulatory [facility] Start: 09-09-2020 End: 09-11-2020 Subsequent hospital visit by physician [facility] Mri Room [address] [facility] MRI Comment on above: Cervical spondylosis with myelopathy; Cervical stenosis of spine; Cervical radiculopathy Procedures Date Procedure Procedure Detail Performing Clinician Start: 03-13-2024 IGP,APTIMA HPV,AGE GDLN Ez Viviane DO Work Phone: Start: 02-02-2024 Plain [...] PM EDT Office Visit MELIDA EPPERSON [address] [place] [address] Ze Pan DO [address] [place] [address] [facility] [place] [facility] Start: 01-07-2025 End: 01-07-2025 Patient encounter procedure MELIDA EPPERSON Comment on above: Arrived Start: 12-05-2024 End: 12-05-2024 Patient encounter procedure 12/05/2024 3:20 PM EDT Office Visit MELIDA EPPERSON [address] [place] [id number] Ze Pan, DO [address] [place] [address] Arrived MELIDA EPPERSON Comment on above: Arrived Start: 10-25-2024 [facility] Start: 10-25-2024 [facility] Start: 05-30-2024 End: 05-30-2024 Patient encounter procedure 05/30/2024 3:20 PM EST Office Visit [facility] [address] [place] [id number] Ze Pan, DO [address] [place] [address] Arrived [facility] Comment on above: [...] hip XR hip LT min 2V(w/wo pelvis)* [facility] Start: 02-02-2024 XR Hip - left 2 Views F [facility] Start: 01-31-2023 [facility] Start: 01-31-2023 [facility] Start: 01-31-2023 Physical therapy procedure [facility] Start: 01-20-2023 [facility] Start: 12-24-2022 MRSA Culture MRSA Culture [facility] Start: 12-17-2020 Influenza vaccination [employer] Phone: Start: 12-05-2020 End: 12-05-2020 Patient encounter procedure 12/05/2020 Office Visit Neurosurgery Mejia Griffin MD [address] [place], [place] [id number] [facility] Start: 09-19-2020 End: 09-19-2020 Patient encounter procedure 09/19/2020 Office Visit Neurosurgery Mejia Griffin MD [address] [place] [address] [phone] [facility] Start: 12-13-2019 Screening for malign ant neoplasm of breast Breast cancer screen [facility] Phone: Start: 12-13-2019 Screening for malign ant neoplasm of colon Colon cancer screen colonoscopy [employer] Phone: Start: 12-13-2019 Shingles Vaccine (1 of 2) Shingles Vaccine (1 of 2) [employer] Phone: Start: 2014 Screening for malign ant neoplasm of colon Colon cancer screen colonoscopy [facility] Phone: Start: 2009 Diabetes screen Diabetes screen [employer] Phone: Start: 1990 Screening for malign ant neoplasm of cervix Cervical cancer screen [employer] Phone: Start: 1988 DTaP/Tdap/Td vaccine (1 - Tdap) DTaP/Tdap/Td vaccine (1 - Tdap) [employer] Phone: Start: 1984 HIV screening HIV screen [facility] Work Phone: Start: 1981 COVID-19 Vaccine (1) COVID-19 Vaccin e (1) [employer] Phone: Start: 12-13-1979 Lipid panel Lipid screen [facility] Work Phone: Start: 1969 Creatinine measurement Creatinine mo nitoring [facility] [employer] Phone: Start: 1969 Hepatitis C screening Hepatitis C sc reen [facility] [employer] Phone: Start: 1969 Potassium monitoring Pot[facility] monit [facility] Phone: Continuous pulse oximetry Pulse oximetry, continuous Respiratory Care Routine Every 4hr until discontinued starting 11/18/2020 [facility] Phone: Comment on above: Every 4hr until disc ontinued starting 11/18/2020 Cotinine [Mass/volum e] in Serum or Plasma [facility] End: 11-18-2020 Fluoroscopy during operation [facility] FOR SURGICAL PROCEDURES Imaging Routine Pain Once for 1 Occurrences starting 11/18/2020 until 11/18/2020 [employer] Phone: Comment on above: Once for 1 Occurrenc es starting 11/18/2020 until 11/18/2020 Fluoroscopy during operation [facility] FOR SURGICAL PROCEDURES Imaging Routine Pain 11/18/2020 1:30 PM EDT [facility] Phone: Glucose measurement estimated from glycated hemoglobin [facility] Methicillin resistan t Staphylococcus aureus [Presence] in Unspecified specimen by Organism specific culture [facility] Nicotine [Mass/volum e] in Serum or Plasma [facility] Oxygen therapy [[facility]ini [facility] Data Set] [employer] Phone: Comment on above: Daily until disconti nued starting 09/09/2020 Daily until disconti nued starting 11/18/2020 Patient Education Know your Meds On License Of [facility] Needle Biopsy, Thyroid [facility] Work Phone: Phase I & II - meter ed glucose Phase I & II - metered glucose Point of Care Testing Routine As Needed until discontinued starting 09/09/2020 [employer] Phone: Comment on above: As Needed until disc ontinued starting 09/09/2020 Spirometry panel Incentive joaquín metry Respiratory Care Routine Every 2hr while awake until discontinued starting 09/09/2020 [facility] Work Phone: Comment on above: Every 2hr while awak e until discontinued starting 09/09/2020 Surgical Pathology [facility] Work Phone: Comment on above: Release Upon Orderin g for 1 Occurrences starting 11/18/2020 End: 11-18-2020 Surgical Pathology Surgical Pathology Lab Routine Once for 1 Occurrences starting 11/18/2020 until 11/18/2020 [facility] Work Phone: Comment on above: Once for 1 Occurrenc es starting 11/18/2020 until 11/18/2020 THIN PREP TIS PAP AN D HR HPV DNA THIN PREP TIS PAP AND HR HPV DNA Pathology and Cytology Routine Well woman exam with routine gynecological exam Ordered: 03/13/2024 [facility] Comment on above: Ordered: 03/13/2024 [facility] Immunizations Immunization Date Immunization Notes Care Provider Fa cility NEGATED: Highlighted row has not occurred!06-10-2021 influenza virus vaccine, unspecified formulation Jerry QUIÑONEZ General Surgery [place] Payers Date Payer Category Payer Self-pay [id number] 2021 [facility] [id number] 2020 Private Health Insurance [id number] 2020 Private Health Insurance [id number] 1969 Unknown [id number] [id number] 1969 Unknown [id number] [id number]. 2.182 1969 Unknown [id number] [id number]. 2.182 1969 Unknown [id number] [id number]. 2.593 1969 Unknown [id number] [id number]. 2.593 1969 Unknown [id number] [id number]. 2.593 1969 Unknown [id number] [id number]. 2.593 1969 Unknown [id number]. 2.593 1959 Blue Cross Blue Shield [id number] 1959 Self-pay [id number] Blue [employer] Blue Shield [id number] Private Health Insurance [employer] [id number] Unknown [id number] 2.531 Unknown [id number]. 2.531 Social History Date Type Detail Facility Start: 09-02-2020 End: 01-31-2023 Tobacco smoking status MNIS Never smoker [employer] Phone: Start: 09-02-2020 End: 11-20-2020 Tobacco use and exposure Never used [facility] Start: 1970 Sex Assigned At Not on file [employer] Phone: Start: 11-07-2020 History 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 5 [employer] Phone: Start: 11-07-2020 History SDOH Food Worry 1 [employer] Phone: Start: 1970 Sex Assigned At Female [employer] Phone: Exposure to SARS-CoV -2 (event) Not sure [facility] Tobacco smoking status Never Gener al Surgery [place] Sex Assigned At Female Genera l Surgery [facility] Knight Tobacco smoking stat [facility] Tobacco smoking consumption unknown [facility] Sex Female (finding) [facility] Medical Equipment Procedure Code Equipment Code Equipment Original Text Equipment Identifier Dates Arthroplasty, hip, total, anterior approach Acetabular shell [id number] FDA Start: 01-31-2023 Arthroplasty, hip, total, anterior approach Orthopaedic bone screw, non-bioabsorbable, sterile [id number] FDA Start: 01-31-2023 Arthroplasty, hip, total, anterior approach Orthopaedic bone screw, non-bioabsorbable, sterile [id number] FDA Start: 01-31-2023 Arthroplasty, hip, total, anterior approach Ceramic femoral head prosthesis ()[id number] FDA Start: 01-31-2023 Arthroplasty, hip, total, anterior approach Coated hip femur prosthesis, modular ()[id number] FDA Start: 01-31-2023 Arthroplasty, hip, total, anterior approach Non-constrained polyethylene acetabular liner ()[id number] FDA Start: 01-31-2023 Cage Spnl [id number] xl14mm Lum Lord Intbdy Fus [facility] Cc - [id number] Start: 11-18-2020 Graft Spnl [id number] Corticocancellous Lord [facility]ad - [id number] Start: 11-18-2020 Screw Spnl L7mm Dia2.6mm Lum Lat Mass Leverage Lfs [id number] Start: 11-18-2020 Plate Spnl L42mm Ant Cerv 2 Lev Translational [place] Acp [id number] Start: 11-18-2020 Screw Spnl L13mm Dia4mm Ant Cerv [facility] Ang Compr [place] Acp [id number] Start: 11-18-2020 Screw Spnl L5mm [...] nursing note reviewed. Exam conducted with a press assistant and feeder present. Vitals: Estimated body mass index is [...] Ze Pan DO documented in this encounter [facility] 12-05-2024 History of Presen t [...] nursing note reviewed. Exam conducted with a press assistant and feeder present. Vitals: Estimated body mass index is [...] Ze Pan DO documented in this encounter [facility] 05-30-2024 History of Presen t [...] nursing note reviewed. Exam conducted with a press assistant and feeder present. Vitals: Estimated body mass index is [...] Ze Pan DO documented in this encounter [facility] 03-13-2024 History of Presen t [...] nursing note reviewed. Exam conducted with a press assistant and feeder present. Vitals: Estimated body mass index is [...] Ze Pan DO documented in this encounter [facility] 04-20-2023 Evaluation note Encounter Date Diagnosis Assessment Notes Apr, S/P total left hip arthroplasty (ICD-10 - Z96.642) Apr, Aftercare following joint replacement surgery (ICD-10 - Z47.1) Apr, Presence of left artificial hip joint (ICD-10 - Z96.642) Apr, Other [facility] [place] [facility] [place] Overall she is doing great. [...] to call with any questions or concerns. [facility] Other 11-16-2023 Evaluation note* Encounter Date Diagnosis [...] weeks with x-rays of the left hip. [facility] Other 11-01-2023 Evaluation note* Encounter Date Diagnosis Assessment Notes Treatment Notes Treatment Clinical Notes Feb, S/P total left hip arthroplasty (ICD-10 - Z96.642) Feb, Aftercare following joint replacement surgery (ICD-10 - Z47.1) Feb, Presence of left artificial hip joint (ICD-10 - Z96.642) Feb, Other [facility] at [facility] on 01/31/2023 Overall patient is doing [...] off narcotic pain medication. They can take mwdl-vfb-xdjaivy anti-inflammatories as needed for assistance with swelling [...] examination and x-rays of the left hip. [facility] Other 10-26-2023 Evaluation note* Encounter Date Diagnosis [...] to help calm down this allergic reaction. [facility] Other 10-12-2023 Evaluation note* Encounter Date Diagnosis Assessment Notes Treatment Notes Treatment Clinical Notes Jan, Primary osteoarthritis of left hip (ICD-10 - M16.12) Jan, Age-related osteoporosis without current pathological fracture (ICD-10 - M81.0) Jan, Other fpc (current) drug therapy (ICD-10 - Z79.899) Jan, Other 1. Left JILLIAN Home Medications - DVT prophylaxis: Aspirin - NSAID: Celebrex - Disposition: Same-day discharge Joints Meeting Checklist - Pharmacy: [facility] to bed - Approach/Technique: anterior, Sarah Ann bed - Implants: Avenir Complete/G7; - Anesthesia: general vs spinal - Blocks: Fascia iliaca - Preop Antibiotics: Ancef - TXA: yes-systemic - Positioning/OR Bed: supine on Sarah Ann bed - Intraop X-ray: yes - Fraser: [...] above surgery. OARRS report generated and reviewed. [facility] Other 10-06-2023 Evaluation note* Encounter Date Diagnosis [...] patient could proceed with surgery safely. The technical delivery manager was vital for surgery timing and [...] plans. Prolonged services time spent: 32 minutes [facility] Other 08-31-2023 Evaluation note* Encounter Date Diagnosis [...] note writ ten by Nino Reese MA, Ironer Or Presser. Edited and approved by Dr. Sawyer Greer MD. [facility] Other 08-31-2023 Evaluation note* Encounter Date Diagnosis Assessment Notes Treatment Notes Treatment Clinical Notes Nov, Osteoarthritis of left hip (ICD-10 - M16.12) [facility] Other 05-09-2023 Evaluation note* Encounter Date Diagnosis [...] note writ ten by Jcarlos Jovel LPN, [employer] Presser. Edited and approved by Dr. Sawyer Greer MD. [facility] Other 04-19-2023 Evaluation note* Encounter Date Diagnosis [...] note writ ten by Jcarlos Jovel LPN, Ironer [employer] Presser. Edited and approved by Dr. Sawyer Greer MD. [facility] Other 03-20-2023 Evaluation note* Encounter Date Diagnosis [...] note writ ten by Jcarlos Jovel LPN, [employer]er [employer] Presser. Edited and approved by Dr. Sawyer Greer MD. [employer] Other 11-08-2022 Evaluation note* Encounter Date Diagnosis [...] note writ ten by Nino Reese MA, Ironer Or Presser. Edited and approved by Dr. Sawyer Greer MD. [facility] Other 10-17-2022 Evaluation note* Encounter Date Diagnosis [...] note writ ten by Jcarlos Jovel LPN, Ironer Or Presser. Edited and approved by Dr. Sawyer Greer [...] negative findings were considered in medical decision-making. [facility] Other 10-11-2022 Evaluation note* Encounter Date Diagnosis [...] be able to perform normal work duties. [facility] Other 02-23-2022 NoteChief Complaint consultation for right [...] History ALS (more content not included)...[facility] Center[facility]: Result Comment: Electronically Signed By: KHANG BARTH, Jerry Warren\Date and Time Signed: 06/10/21 16:23 [id number] Hospital Discharge instructions* Instructions* Nemo Calixto APRN [...] drive until follow up documented [facility] this [facility] Work Phone: [phone]) 973-465608-04-2021 History of Present illness Narrative* Krysten Villegas [...] Ambulation Assistance: Independent Transfer Assistance: Independent Active Price Economist: Yes 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 to work when [...] chair Goals: Patient goals : go home adjunct faculty for medical terminology goals adjunct faculty for medical terminology goal 1: bed mobility with indep half-way goal 2: Functional transfers with indep half-way goal 3: Amb 100ft with 2ww and indep half-way goal 4: 4 steps without handrail and SBA to enter/exit home [facility] (6 CLICK) BASIC MOBILITY AM-PAC Inpatient [...] to accomplish the task documented in this [facility] Phone: 1(201) 470-348108-03-2021 NoteIntraprocedural fluoroscopic support has been provided. Please refer to the procedure report.[employer] Phone: 1(707) 124-735108-03-2021 NoteEXAMINATION: FLUORO FOR SURGICAL PROCEDURES CLINICAL HISTORY: R52 Pain ICD10 COMPARISONS: None available. FINDINGS: Fluoroscopic assistance was provided during ACDF, C5-6 and C6-7 The total radiationtime is 31.9 seconds, radiation dose is 3.62mGy.[employer] Phone: [phone]) [phone] NoteEXAMINATION: FLUORO FOR SURGICAL PROCEDURES CLINICAL HISTORY: R52 Pain ICD10 COMPARISONS: None available. FINDINGS: Fluoroscopic assistance was provided during ACDF, C5-6 and C6-7 The total radiation time is 31.9 seconds, radiation dose is 3.62mGy. IMPRESSION: Intraprocedural fluoroscopic support has been provided. Please refer to the procedure report. Interpreted by: Leandro Spaulding MD Signed by: Leandro Spaulding MD 11/18/20 Final resultSt. [facility] HospitalEvaluation + Plan note Future Appointments Appointment Date:07/24/2021 01:20:00 PM Scheduled Provider:Jerry QUIÑONEZ MD Location:[facility] Appointment Type: Post Op 15 General Surgery [place] Evaluation note* Diagnosis Cervical spondylosis with myelopathy Cervical stenosis of spine Spinal stenosis in cervical region Cervical radiculopathy Brachial neuritis or radiculitis nos documented in this encounter [employer] Work Phone: evalutenvk note* Diagnosis Post-op pain- Primary Other acute postoperative pain Pain Generalized pain Muscle spasm Spasm of muscle Cervical cord compression with myelopathy (HCC) Unspecified disease of spinal cord documented in this encounter [employer] Phone: evalllratd note* Diagnosis Pain Generalized pain documented in this encounter [employer] Phone: evaluation noteNo InformationNort [employer] Other Evaluation noteNo assessment information available [facility] Work Phone: Evaluation note* Diagnosis Onset Date Resolution Status Aftercare following left hip joint replacement surgery acute [facility] Work Phone: Evaluation note* Diagnosis Well [...] History neck biopsy Hospitalization History see surgical [facility] Other History general Narrative - Reported* Type Description Date Medical History Arthritis Medical History high cholesterol Medical History migraine headache Medical History chronic depression Medical History anxiety Surgical History C section Surgical History hernia repair Surgical History hysterectomy Surgical History neck biopsy Surgical History LTHA 01/31/2023 Hospitalization History see surgical hx [facility] Other Hospital course Narrative No data available for this section General Surgery [facility] Discharge instructions* Attachments The following attachments cannot be sent through Care Everywhere. * Sedation: General Info (Yoruba) documented in this [facility] Work Phone: Hospital Discharge instructions No data available for this section General Surgery [facility] Discharge instructions Additional Instructions Joint Replacement Discharge Instructions Your safety during your recovery process is important to us. Please seek immediate emergency care if you have sudden chest pain or shortness of breath. Additionally, please call our office at [phone] should any of the following occur: wound [...] to walk without your walker and your critical care educator until the therapist checks you the following [...] and/or laxatives as directed. You may take fgrt-tvs-ldveknj Benadryl if itching occurs without a rash or hives. Icing and elevation will help relieve pain as well, do not underestimate the power of ice and elevation. We do recommend that you stop taking narcotic pain medications by 4-6 weeks after surgery and if necessary, continue to use anti-inflammatory medications such as Mobic (meloxicam), Celebrex (celecoxib), or an rmaw-zbi-qkciwah medication (Aleve, Motrin, Ibuprofen, etc). Driving an [...] feel free to call our office at [phone]. You are a priority of ours and we will not be upset with you if you call. We would much rather you call to confirm aspects of your recovery process as opposed to possibly hindering your recovery with inappropriate care. We are committed to providing you with the best care possible. Edison Veronica II, MD Updated 07/02/2022[facility] Work Phone: Reason for referral (narrative)No reason for referral information availableBrown Memorial Hospital Work Phone: Reason for Referral Status Reason Specialty Diagnoses / Procedures Referre d By Contact Referred To Contact Closed Radiology Diagnoses Cervical spondylosis with myelopathy Cervical stenosis of spine Cervical radiculopathy Procedures MRI CERVICAL SPINE WO CONTRAST Mejia Griffin MD [address] [facility] [address] [place] [address] Status Reason Specialty Diagnoses / Procedures Referre d By Contact Referred To Contact Closed Radiology Diagnoses Pain Procedures Fluoro For Surgical Procedures Mejia Griffin MD [address] [place] [address] Reason *Waiting for appt Evaluate and Treat Sacroiliac and Trochanteric Bursitis L Hip Diagnosis 1 Inflammation of left sacroiliac joint (M46.1) Diagnosis 2 Greater trochanteric bursitis of left hip (M70.62) Referral Organization [facility] urosurgery Referring Provider First Name Santiago Referring Provider Last Name Jerome Referring Provider Specialty Neurologica l Surgery Referred Organization [facility] [place] Referred Provider Sawyer Greer Referred Address [address] [facility] [place],[address] Referred Provider Specialty Pain Medicin e Referral Priority Routine General Notes Nisa Zelaya 022 10:44:35 AM >Received today and sent P2P Reason severe left hip/ helen in/ thigh pain Diagnosis 1 Osteoarthritis of le ft hip (M16.12) Referral Organization [facility] [place] Referring Provider First Name Sawyer Referring Provider Last Name Zoey Referring Provider Specialty Pain Medici ne Referred Organization [facility] Referred Provider Edison Veronica II Referred Address [address] [facility] [place],[address] Referred Provider Specialty Orthopedic S urgery Referral Priority Routine Summary Purpose Family History Relationship Condition Age at Onset Recorded Date/T maddiosn father Motor neuron disease Unknown Hypertension Unknown [...] CERVICAL SPINE WO CONTRAST Mejia Griffin MD [address] [facility] [address] [place] [address] Status Reason Specialty Diagnoses / Procedures Re ferred By Contact Referred To Contact Diagnoses Cervical stenosis (uterine cervix) Cervical radiculopathy Spondylosis Cord compression (HCC) STENOSIS, RADICULOPATHY, SPONDYLOSIS, CORD COMPRESSION Procedures HI SPINAL FUSION,ANT,EA ADNL LEVEL HI LUMB SP FUSN,POST INTERBDY,EA ADDNL HI ARTHRODESIS ANT INTERBODY INC DISCECTOMY, CERVICAL BELOW C2 HI C-LAMINOPLASTY W/GRAFT/PLATE, 2 OR MORE ANTERIOR INSTRUMENTATION 2-3 VERTEBRAL SEGMENTS HI ALLOGRAFT FOR SPINE SURGERY ONLY STRUCTURAL HI ARTHRODESIS ANT INTERBODY INC DISCECTOMY CERVICAL BELOW C2 EA ADDL A.C.D.F (ANTERIOR CERVICAL DISKECTOMY FUSION) C5-6 C6-7 WITH POSTERIOR DECOMPRESSION LAMINOPLASTY SPANNING FROM C3-4-5-6/ 2 HRS/ 1 C-ARM. NUVASIVE/ S.S.E.P, PAT AT [facility] Mejia Griffin MD [address] [facility] [address] [place] [address] [facility] Reason Comments Gynecologic Exam Reason Comments Follow-up Pt present today for a f/up visit for medication Estrace. Reason Comments hormone replacement Reason Comments Follow-up Weight Management INFORMATION SOURCE (unrecogn ized section and content) DATE CREATED AUTHOR 11/09/2020 [facility] DATE CREATED AUTHOR AUTHOR'S ORGANIZ ATION 11/22/2020 [facility] [place] DATE CREATED AUTHOR AUTHOR'S ORGANIZ ATION 08/16/2021 [facility] DATE CREATED AUTHOR AUTHOR'S ORGANIZ ATION 09/24/2022 [facility] [place] [facility] DATE CREATED AUTHOR AUTHOR'S ORGANIZ ATION 10/29/2024 [facility] Ordered Prescriptions (unrec ognized [...] 100 mL IVPB (COMPLETED) 2,000 mg, Intravenous, BAKERY MACHINE MECHANIC TO O.R., 1 dose, On Tue11/18/20 at [...] Entry - Provider: Joe Mantilla APRN - HUMAN RESOURCES OFFICE MANAGER)[phone] (Stopped - Provider: Joe Mantilla APRN - HUMAN RESOURCES OFFICE MANAGER)[id number] (New Bag - Provider: Juliane Alonso RN) [...] Attending Provider Active Start: February 02, 2024 Novelty Worker Relationship Specialty Start Date End Date Gina Garza MD [address] [facility] [place] [address] PCP - General Family Medicine 05/30/24 Novelty Worker Relationship Specialty Start Date End Date Gina Garza MD [address] [facility] [place] [address] PCP - General Family Medicine 05/30/24 Team Status: Inactive Member Role Status Dates Gina Garza MD Primary Care Provider Active Start: October 25, 2024 End: October 25, 2024 Gina Gazra MD Attending Provider Active Sta rt: October 25, 2024 End: October 25, 2024 Novelty Worker Relationship Specialty Start Date End Date Gina Garza MD [address] [place] [address] PCP - General Family Medicine 05/30/24 Novelty Worker Relationship Specialty Start Date End Date Gina Garza MD [address] [facility] [place] [address] PCP - General Family Medicine 05/30/24 Novelty Worker Relationship Specialty Start Date End Date Gina Garza MD [address] [facility] [place] [address] PCP - General Family Medicine 05/30/24 Goals [...] BE BASED ON THE PRIMARY CLINICAL RECORDS. [employer]. provides no warranty or guarantee of the accuracy or completeness of information in this document.
--- NOTE | 2025-02-01 07:01 | MR_ITS ---
The [address] [address] Patient Name: ANA PALMER MRN: [id number] date: 1970 Sex: F Assigned Patient Location: MRI Current Patient Location: MRI Accession/Order Number: [id number] Exam Date: 02/01/2025 07:05 Report Date: 02/01/2025 08:38 At the request of: GINA GARZA MD Procedure: MR head/brain wo con EXAMINATION: MRI OF THE BRAIN WITHOUT CONTRAST CLINICAL HISTORY: Chronic right-sided headache with visual changes. Acute Non Recurrent Sinusitis, Bloody Nose COMPARISON: CT 07/29/2018 TECHNIQUE: Multiecho, multiplanar imaging of the brain was performed without enhancement. The ventricles are normal in size and position. There are some scattered foci of increased T2 and FLAIR signal within the periventricular and subcortical white matter. This is nonspecific though the differential could include microvascular disease and demyelination. There are no additional areas of abnormal signal intensity within the supra- or infratentorial brain. No restricted diffusion is identified to suggest a recent ischemic event. There are no extra-axial collections or mass effect. The imaged paranasal sinuses and mastoid air cells are clear. There is mild asymmetric mucosal congestion over the nasal turbinates on the right. MR/MR head/brain wo con IMPRESSION: MINOR NONSPECIFIC WHITE MATTER CHANGES, DESCRIBED. NO OTHER ACUTE INTRACRANIAL FINDINGS. Impression dictated by: Radha Godinez M.D. 02/01/2025 8:38 AM Dictation Location: [place] [address] Electronically authenticated by: [id number] Y Date: 02/01/2025 08:38
== END 2025-02-01 06:56 | disposition home or self-care (01) ==
LOC: MRI 06:57
PROVIDERS: PCP Family Medicine; Visit Provider Family Medicine
DX: J01.90 Acute sinusitis, unspecified (principal); R51.9 Headache, unspecified; R09.81 Nasal congestion; R04.0 Epistaxis
CPT/HCPCS: 70551

== ENCOUNTER 2025-02-26 07:46 | Day surgery (SDC) | payer BC, SELFPAY ==
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
--- OUTSIDE RECORDS SUMMARY | 2024-05-11 04:50 | XMS_ITS | Continuity of Care Document ---
Author Organization [facility] Address [address] [place] [address] Phone Care Team Providers Care Digital Communications Manager Name Role Phone Rebeka BARTH, Bar Unavailable Unavailable Allergies, Adverse Reactions, Alerts Substance Reaction Status Criticality Sulfa (Sulfonamide Antibiotics) Active No Information Medications Medication Instructions Dosage Effective Dates (start - stop) Status Comments CellCept 500 mg tablet Oral route: Take 3 tabs in the AM and 2 tabs in the PM. - Active brimonidine 0.2 % eye drops instill 1 drop by ophthalmic route 2 times every day into both eyes 1 drop - Active timolol maleate 0.5 % eye drops instill 1 Drop by Ophthalmic route 2 times every day in both eyes - Active lisinopril 40 mg tablet take 1 tablet by oral route every day 40 MG - Active Suboxone 12 mg-3 mg sublingual film take 1 12mg and 1 8mg 1 time a day. - Active Suboxone 8 mg-[address] 1 film by sublingual route every day allow to dissolve slowly in mouth without chewing or swallowing 1.00 film - Active lisinopril 10 mg tablet - No Longer Active Procedures Procedure Date OCT Retina Offic/outpt E&m Estab Mod-hi Pt Records Intravitreal Inj Agent Sep Procedure May Ozurdex 0.7mg Intravitreal Implant May- Intravitreal Inj Agent Sep Procedure May OCT Retina Ozurdex 0.7mg Intravitreal Implant Offic/outpt E&m Estab Mod-id OCT [facility] Offic/outpt E&m Estab [facility] Intravitreal Inj Agent Sep Procedure Dec OCT Retina Triamcinolone Acetonide/10 Mg 3 Offic/outpt E&m Estab [facility]-id Fluorescein Angiography W/i&r 3 Fundus Photography W/i&r Offic/outpt E&m Estab [facility] Offic/outpt E&m Estab [facility] Gonioscopy Both Eyes Ophth Ultrasound Echo Dx; Cont 21 Offic/outpt E&m Estab [facility] Ophth Ultrasound Echo Dx; Cont 20 Offic/outpt E&m Estab [facility] Low-mod 9 Intravitreal Inj Agent Sep Procedure Jan Offic Outpt E&m Estab Low-mod 9 Inj Therap Agent [employer] 19 Ophth Ultrasound Echo Dx; Cont 19 Offic Cons New Estab [facility] Advance Directives Directive Yes / No Effective Date File Name Other Directive No N/A N/A WARNING:The information contained in this section is historical and is provided for information only and does not constitute a legal document or any assurance that the information is still accurate. Please verify the information with the haskins of the legal document before using it for clinical purposes. Encounters Encounter Description Practice Location Reason(s) For Visit Diagnoses Date Provider Providers Copied on Encounter Offic/outpt E&m Estab [facility], [address] [facility], [place], [place], [id number] , [place] [phone] [facility] [place] retina (chief complaint) Choroiditis of both eyesChronic anterior uveitis of right eyeScleritis of right eyeVitreous floaters of both eyesVitreous syneresis of left eyeAge-related nuclear cataract, left eyeOther secondary cataract, right eye 5 [facility] [address], [place], [address], [place]. tel: [phone] Referring Provider: Joe Robert, [address] [facility], [place], [address]. tel:[phone] [facility], [address], [place], [place], [id number] , [place] tel: [phone] [facility] [place] No Information 4 [facility]. [address], [place], [address], [place]. tel: [phone] Referring Provider: Joe Robert, [address] [facility], [place], [address]. tel:[phone] [facility], [address], [place], [place], [id number] , [place] tel: [phone] [facility] [place] No Information 4 [facility]. [address] [facility], [place], [address], [place]. tel: [phone] [facility], [address] [facility], [place], [place], [id number] , [place] tel: [phone] [facility] [place] retina (chief complaint) Choriodoretinitis, rightChoriodoretiniti s, leftChoroiditis of both eyes 4 [facility]. [address] [facility], [place], [address], [place]. tel: [phone] Referring Provider: Joe Robert, [address] [facility], [place], [address]. tel:[phone] [facility], [address], [place], [place], [id number] , [place] tel: [phone] [facility] [place] retina (chief complaint) Right posterior uveitisChoroiditis of both eyes 4 [facility]. [address], [place], [address], [place]. tel:[phone] Referring Provider: Joe Robert, [address] [facility], [place], [address]. tel:[phone] Offic/outpt E&m Estab Mod-hi [facility], [address], [place], [place], [id number] , [place] tel:[phone] [facility] IMT follow up (chief complaint) Chronic anterior uveitis of right eyeScleritis of right eyeVitreous floaters of both eyesVitreous syneresis of left eyeAge-related nuclear cataract, left eyeOther secondary cataract, right eyeChoroiditis of both eyes Dec-0 3 [facility] [address], [place], [address], [place]. tel:[phone] Referring Provider: Joe Robert, [address] [facility], [place], [address]. tel:[phone] Offic/outpt E&m Estab [facility], [address], [place], [place], [id number] , [place] tel:[phone] [facility] IMT follow up (chief complaint) Chronic anterior uveitis of right eyeScleritis of right eyeVitreous floaters of both eyesVitreous syneresis of left eyeAge-related nuclear cataract, left eyeOther secondary cataract, right eye Oct-2 3 [facility] [address], [place], [address], [place]. tel:[phone] Referring Provider: Joe Robert, [address] [facility], [place], [address]. tel:[phone] Offic/outpt E&m Estab [facility], [address], [place], [place], [id number] , [place] [phone] [facility] retina (chief complaint) Chronic anterior uveitis of right eyeScleritis of right eyeAngle-closure glaucoma of both eyesVitreous syneresis of left eyeNuclear senile cataract of both eyes Sep-2 3 [facility], [place], [address], [place]. tel:[phone] Referring Provider: Joe Robert, [address] [facility], [place], [address]. tel:[phone] Offic/outpt E&m Estab [facility], [address] [facility], [place], [place], [id number] , [place] tel:[phone] [facility] FA OS>OD/foll ow up and OCT (chief complaint) Chronic uveitis of both eyesChronic anterior uveitis of right eyeScleritis of right eyeACG (angle-closure glaucoma), stage unspecifiedVitreous syneresis, left Mar-3 3 [facility] [address] [facility], [place], [address], [place]. tel:[phone] Referring Provider: Bar Treadwell, [address] [facility], [place], [address]. tel:[phone] Offic/outpt E&m Estab [facility], [address] [facility], [place], [place], [id number] , [place] tel:[phone] [facility] blurry vision (chief complaint) Chronic iridocyclitis, right eyeUnspecified scleritis, right eyeUnsp primary angle-closure glaucoma, stage unspecifiedOther vitreous opacities, left eyeAge-related nuclear cataract, bilateral Mar-0 2 Manuel Douglas. [address] [facility], [place], [place], [id number] , [place]. tel:[phone] Referring Provider: Joe Robert, [address] [facility], [place], [address]. tel:[phone] Offic/outpt E&m Estab [facility], [address] [facility], [place], [place], [id number] , [place] [phone] [facility] blurry vision (chief complaint) Unsp primary angle-closure glaucoma, stage unspecifiedUnspecifie d scleritis, right eyeChronic iridocyclitis, right eyeOther vitreous opacities, left eyeAge-related nuclear cataract, bilateral Apr-3 0-202 1 [facility]. [address] [facility], [place], [address], [place]. [phone] Specialist : Ronal Garner MD, [address] [facility], [place], [address]. [phone] erring Provider: Joe Robert, [address] [facility], [place], [address]. tel:[phone] Offic/outpt E&m Estab Mod-hi [facility], [address] [facility], [place], [place], [id number] , [place] tel:[phone] [facility] [place] pain and redness (chief complaint) Unspecified scleritis, right eyeChronic iridocyclitis, right eyeOther vitreous opacities, left eyeAge-related nuclear cataract, bilateral Gunner-0 3-202 0 [facility]. [address] [facility], [place], [address], [place]. tel:[phone] Referring Provider: Joe Robert, [address] [facility], [place], [address]. tel:[phone] Offic/outpt E&m Estab Mod-hi [facility], [address] [facility], [place], [place], [id number] , [place] [phone] [facility] [place] pain and redness (chief complaint) Unspecified scleritis, right eyeChronic iridocyclitis, right eyeOther vitreous opacities, left eye 201 9 Maria Esther Rangel . [address] [place], [place], [id number] , [place]. tel:[phone] Referring Provider: Joe Robert, [address] [facility], [place], [address]. tel:[phone] Offic Outpt E&m Estab Low-mod [facility], [address] [facility], [place], [place], [id number] , [place] [phone] [facility] [place] Painful. red eye (chief complaint) Chronic iridocyclitis, right eyeOther vitreous opacities, left eyeAge-related nuclear cataract, bilateral Nov-0 9 Maria Esther Rangel . [address], [place], [place], [id number] , [place]. [phone] Referring Provider: Joe Robert, [address] [facility], [place], [address]. tel:[phone] Offic Outpt E&m Estab Low-mod [facility], [address] [facility], [place], [place], [id number] , [place] tel:[phone] [facility] [place] pain (chief complaint) Chronic uveitis of right eyeOther vitreous opacities, left eyeAge-related nuclear cataract, bilateral Oct-0 9 Maria Esther Rangel . [address] [facility], [place], [place], [id number] , [place]. tel:[phone] Referring Provider: Joe Robert, [address] [facility], [place], [address]. tel:[phone] [facility], [address] [facility], [place], [place], [id number] , [place] [phone] [facility] [place] blurred vision and pain (chief complaint) Chronic anterior uveitis of right eye Sep-0 9 Maria Esther Rangel . [address] [facility], [place], [place], [id number] , [place]. [phone] Referring Provider: Joe Robert, [address] [facility], [place], [address]. tel:[phone] Offic Cons New Estab Mod Hi [facility], [address], [place], [place], [id number] , [place] [phone] [facility] [place] blurry vision (chief complaint) Chronic iridocyclitis, right eyeOther vitreous opacities, left eyeAge-related nuclear cataract, bilateral Aug-2 9 Maria Esther Rangel . [address] [facility], [place], [place], [id number] , [place]. [phone] Referring Provider: Joe Robert, [address] [facility], [place], [address]. tel:[phone] Family History Family Member Type Diagnosis Age At Onset Father Problem (finding) Diabetes mellitus Father Problem (finding) Arthritis Maternal grandfather Problem (finding) Arthritis Mother Problem (finding) hypertension Mother Problem (finding) Arthritis Maternal grandmother Problem (finding) Arthritis Sister Problem (finding) Non-Hodgkin's lymphoma Payers Payer name Insurance type Covered alliance party ID Gertrudis roberson(s) [facility] [id number] Social History Type Description Quantity Date Captured Comments Alcohol Use Details No Caffeine Use Details 6 cups per day Tobacco Use Status Heavy cigarette smok er (20-39 cigs/day) Smoking Status Heavy tobacco smoker Smoking Tobacco Use Details Cigarette: No Details Available Cigarette: 1 Packs per day [id number] SexFemale Chief Complaint And Reason For Visit From encounter dated '05/11/2024 09:50'. retina (chief complaint). Description: Patient present for IMT follow up/ OCT OU. History of choroiditis OU, choroidoretinitis OU, and posterior uveitis OD. Patient c/o light sensitivity OU, constantheadache, and red watery eyes OU.Patient needs refill of Brimonidine and Timolol. Patient is out ofCellCept. Reason For Referral Reason For Referral No Information Plan Of Treatment Date Type Action Status Goal Tobacco cessation counseling completed Goal Tobacco cessation counseling completed Goal Tobacco cessation counseling completed Goal Tobacco cessation counseling completed Goal Tobacco cessation counseling completed Goal Tobacco cessation counseling completed Patient Education CellCept 500 mg tablet completed Patient Education timolol maleate 0.5 % e ye drops completed Patient Education CellCept 500 mg tablet completed Patient Education CellCept 500 mg tablet completed Patient Education Suboxone 8 mg-2 mg subl ingual film completed Patient Education Suboxone 8 mg-2 mg subl ingual film completed Patient Education Suboxone 8 mg-2 mg subl ingual film completed Patient Education valacyclovir 500 mg tab let completed Patient Education Medrol (Koby) 4 mg table ts in a dose p~ completed Patient Education Durezol 0.05 % eye drop s completed Patient Education Durezol 0.05 % eye drop s completed Patient Education Suboxone 8 mg-2 mg subl ingual film completed Patient Education Suboxone 8 mg-2 mg subl ingual film completed History Of Present Illness Encounter Date Complaint History Of Prese nt Illness retina Patient present for IMT follow up/ OCT OU. History of choroiditis OU, choroidoretinitis OU, and posterior uveitis OD. Patient c/o light sensitivity OU, constant headache, and red watery eyes OU. Pt was not seen for a year or so. Patient needs refill of Brimonidine and Timolol. Patient is out of CellCept. retina Pt presents for Ozurdex injection OS; Choroiditis OU. Pt states everything is the same, Pt had lab work done on Tuesday. Refills are needed on the Cellcept and Valtrex.Pt C/O getting a sore on the roof of her mouth, started 2 to 3 months ago. Not sure if related to taking Cellcept retina Patient is prese nt for ozurdex injection secondary to choroiditis . Patient reports vision has been stable since last visit. no new changes noticed. IMT follow up The 52 year old patient presents for IMT follow up in the right eye and left eye. Pt. had labs done. Pt. states compliant with and tolerating treatment plan well. She was instructed to stop cellcept due to hives and thrush. Pt. just finished a round of antibiotics and steroids. Pt. continues to be bothered by blurred vision in OU; OD>OS. Pt. c/o pain and redness in OD that started last Tuesday and she's been using atropine and last atropine was used yesterday. IMT follow up The 52 year old patient presents for IMT follow up in the right eye and left eye. Pt. had labs done. Pt. compliant with and tolerating treatment plan well. Pt. reports no flare ups. Pt. continues to be bothered with blurry vision in OU. Pt. c/o dull, achy pain in OD today. retina Pt returning to clinic for IMT follow up OU. Pt reports that she is just coming out of flare up OD, onset about a week ago. Pt notes redness in nasal corner OD, extreme pain, and irritation feeling like hair in eye. She notes headache for 4-5 days, Tylenol was taken which helped and Atropine was instilled OD. Pt reports that she is out of CellCept 500 mg and Valtrex 500 mg, noting she has been out a couple of months. Lab work was completed in July and August. FA OS>OD/follow up and OCT The 4 2 year old patient is returning for FA OS>OD/follow up and OCT in the right eye and left eye. Pt. c/o vision in OS getting worse. She states everything is blurry. OD is blurry as well but no worse. Pt. c/o redness and some pain that comes and goes in OD off and on. Went to [facility] on Tuesday and the doctor increased timolol bid OU. She states that OD is a little better and she stopped the atropine she had started with onset of symptoms. blurry vision Pt here for foll ow up. Pt states that she had cataract surgery right eye done 09/[address] Toth. States that she had a lot of scar tissue and Dr Toth then later went in and did a laser to try and fix some of the scar tissue, however it did not help. Pt states that she has had a decrease in vision and is having issues with tripping and falling due to it. .The 50 years old female presents for evaluation of blurry vision in the right > left. The onset was chronic. It affects both near and far vision. The symptom is constant. It occurs all the time. The condition is not any better. blurry vision Patient presents as follow up OU. Dr Garner would like cataract evaluation OD>OS, constant blurry vision OD>OS, WHITE usually every morning but subsides with eye drops, floaters, flashes .The 49 years old female presents for evaluation of blurry vision in the right > left. The onset was chronic. It affects OD > OS. The symptom is constant. It occurs all the time. The condition is significant. The condition is described as visually disruptive. pain and redness Patient is here for a second opinion referred by Dr. Mayo. Patient states that she had a flare up the third week of March. She states that after she started to get injections her flare ups got worse. Patient states she still has redness and pain in her right eye. States that her vision is getting worse in her left eye. Denies flashes, and floaters. States that she gets a knot in her lower lid of her left eye and it flares up. States that her right eye has thumbing pain everyday.The 48 years old female presents for evaluation of pain and redness in the right eye. The onset was sudden onset. It affects OD. The symptom is constant. It occurs with no pattern. The condition is improving. The condition is described as painful. pain and redness Patient is here today for an Emergency visit for the right eye. Patient states her eye started to become blood shot yesterday with aching, and has now become almost all bloodshot and has a dull throbbing . Patient states having headaches behind the right eye, since having last injection on 01-19-19. Patient states a few times her headaches were so bad it mad her nauseous. Patient states having pain. .The 48 years old female presents for evaluation of pain and redness in the right eye. It started about 1 day(s) ago. The onset was acute onset. It affects OD. The symptom is constant. It occurs all the time. The condition is moderate. Painful. red eye Patient is here today to follow up on Uveitis. She states that she had a flare-up 2 weeks ago, worse pain than ever. Woke her up from sleep. Used Durezol OD TID, better today. She states that her vision is not good . Complains vision got blurry 3-4 days ago with a big knot on left lower eye lid . Saw Dr. Garner Tuesday02/13/19, placed her on an ointment for 24 hours then said to use Durezol OS TID and doing WMC.The 48 years old female presents for evaluation of Painful. red eye in the right eye. year(s) ago. The onset was chronic. It affects OD. The symptom is constant. It occurs with no pattern. The condition is not any better. The condition is described as painful. pain Patient presents today to follow up on Uveitis and possible subtenon Kenalog OD. She states that her vision is the same . States that she had a flare-up 01/10/2019 and the pain was the worse she has had in a long time. States flare-up is resolving presently. Complains that with the last injection it hurt .The 48 years old female presents for evaluation of pain in the right eye. year(s) ago. The onset was chronic. It affects OD. The symptom is constant. It occurs with no pattern. The condition is improving. The condition is described as painful. blurred vision and pain Patient is here today for a subtenon Kenalog injection OD for Uveitis. She states that her vision is about the same . Denies any changes. Complains that the eye hurts, sharp stabbing pain that goes all the way up in my head .The 48 years old female presents for evaluation of blurred vision and pain in the right eye. blurry vision New patient refe rred here today by Dr. Toth for anterior uveitis OD>OS. She has been battling this for about 3 years, she usually gets it in the right eye but has recently started to get it in the left eye also. She is on drops most of the time. She has had labs done 2 times and they have come back normal. She has an advanced cataract OD which really limits her vision. She also has glaucoma OD.The 47 years old female presents for evaluation of blurry vision in the right > left. The onset was acute onset. It affects ongoing. The symptom is constant. It occurs all the time. The condition is not any better. The condition is described as blurring. The patient denies eye pain. Functional Status Date Functional Assessmen t No Information Instructions Date Instruction Additional Infor sania - No active inflamma tion at this time in both eyes. Discussed diagnosis in detail with patient. Advised patient of condition. No treatment is required at this time. Take medications as instructed today. Timolol 0.5% (yellow top) - One drop twice a day in both eyesBrimonidine .2% (purple top) - One drop twice a day in both eyesContinue care with [facility]. Patient had the opportunity to ask questions and have all of their questions answered. Related to Diagnosis: Choroiditis of both eyes. Code: H30.93. Status: moderate. Eye: OU. Impression: ozurdex next visit.Diagnosis: Chronic anterior uveitis of right eye. Code: H20.11. Status: persisting. Eye: OD. Impression: restart Cellcept.Diagnosis: Scleriti - ozurdex os injecti on performed today without complications. Patient knows to call with pain that is worsening or decrease in vision. Advised to use artificial tears and/or compresses throughout the day today and tomorrow for any irritation/discomfort. Timolol and Brimonidine bid ou Related to Diagnosis: Choroiditis of both eyes. Code: H30.93. Status: moderate. Eye: OU. Impression: ozurdex next visit. - Ozurdex OD injecti on performed today without complications. Patient knows to call with pain that is worsening or decrease in vision. Advised to use artificial tears and/or compresses throughout the day today and tomorrow for any irritation/discomfort. OCT ordered/completed today and reviewed with patient. Related to Diagnosis: Choroiditis of both eyes. Code: H30.93. Status: moderate. Eye: OU. Impression: ozurdex next visit. - exam OU will resta rt Cellcept and call if she develops any new problems. Will treat with Ozurdex OD then OS. Discussed diagnosis in detail with patient. Will continue to observe condition and or symptoms. Patient instructed to call if condition gets worse. Related to Diagnosis: Choroiditis of both eyes. Code: H30.93. Status: moderate. Eye: OU. Impression: ozurdex next visit.Diagnosis: Chronic anterior uveitis of right eye. Code: H20.11. Status: persisting. Eye: OD. Impression: restart Cellcept.Diagnosis: Scleriti - Inflammation is pe rsisting despite current IMT therapy. Intraocular inflammation is not fully controlled at this point. There is a need to add additional immunomodulatory drug to control ocular inflammation. Use meds as follows:Atropine - Instill 1 drop as needed into the RIGHT eye Timolol 0.5% (yellow top) - One drop twice a day in both eyesCellcept 500 mg - Take 3 tabs in the AM and 2 tabs in the AM Valtrex 500mg - Take one tablet by mouth twice a dayPDN 5mg - Take 4 tabs each AM x 7 days; 3 tabs each AM x 7 days; 2 tabs each AM x 7 days; 1 tab each AM x 7 days. Risk and benefits of new medication were explained and discussed with patient. Noncompliance with medication or FU can lead to irreversible vision loss. Patient had the opportunity to ask questions and have all of their questions answered. Related to Diagnosis: Chronic anterior uveitis of right eye. Code: H20.11. Status: persisting. Eye: OD. Impression: .Diagnosis: Scleritis of right eye. Code: H15.001. Status: persisting. Eye: OD. Impression: .Diagnosis: Vitreous floaters of both eyes. Code: H43. - Discussed diagnosi s in detail with patient. Advised patient of condition. Patient tolerates current immunomodulatory therapy (IMT) with minimal or tolerable side effects. Side effects were discussed with the patient, e.g. low white count, liver toxicity, propensity for infection, gastrointestinal upset, feeling tired etc. Patient fully understands them. Presently, they do not have any of these side effects. Previously ordered labs were reviewed and they are within normal limits (or what is expected at this stage of therapy). Patient should continue IMT as instructed. Atropine - Instill 1 drop into the right eye as neededTimolol 0.5% (yellow top) - One drop twice a day in both eyesCellcept 500 mg - Take 2 tabs in the AM and 2 tabs in the PMValtrex 500mg - Take 1 tab in the AM and 1 tab in the PM New blood work should be done before next visit. Stress compliance for IMT therapy. Noncompliance with medication or FU can lead to irreversible vision loss. Pt understands. Patient had the opportunity to ask questions and have all of their questions answered. Related to Diagnosis: Chronic anterior uveitis of right eye. Code: H20.11. Status: new episode. Eye: OD. Impression: .Diagnosis: Scleritis of right eye. Code: H15.001. Status: new episode. Eye: OD. Impression: .Diagnosis: Angle-closure glaucoma of both eyes. Cod Impression/Plan - Retina is stable o n exam today. Cataract surgery in the right eye looks good. Need to get patient back to [facility] to evaluate inflammation. Will continue to observe condition and or symptoms. Patient instructed to call if condition gets worse. Patient had the opportunity to ask questions and have all of their questions answered. Related to Chronic anterior uveitis of right eyeScleritis of right eyeAngle-closure glaucoma of both eyesVitreous syneresis of left eyeNuclear senile cataract of both eyes - 1 month with [facility] f or follow-up, FA OS/OD, OCT OU Related to Chronic anterior uveitis of right eyeScleritis of right eyeAngle-closure glaucoma of both eyesVitreous syneresis of left eyeNuclear senile cataract of both eyes - US today, to Dr. Tomasa fernandez for PI on tuesday, both eyes with occludable angles. Advised patient of condition. Will continue to observe condition and or symptoms. Call if VA worsens. Discussed needs PI Tuesday with Dr Garner. Then can talk about cataract surgery. Continue drops . Call if VA worsens. Related to Angle-closure glaucoma of both eyesScleritis of right eyeChronic anterior uveitis of right eyeVitreous syneresis of left eyeNuclear senile cataract of both eyes - 2-3 months follow up Related t o Angle-closure glaucoma of both eyesScleritis of right eyeChronic anterior uveitis of right eyeVitreous syneresis of left eyeNuclear senile cataract of both eyes - Return in 4/6 weeks IMT [facility] Related to Scleritis of right eyeChronic anterior uveitis of right eyeVitreous syneresis of left eyeNuclear senile cataract of both eyes - patient referred f or second opinion for [facility] for inflammation of the right eye. Due to the density of the cataract and the poor view to the retina a B scan was performed. The retina is attached. Discussed the findings of the white part of the eye, reviewed all labs. The amount of inflammation in the right eye will need stronger treatment then topical steroid. 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 Will start Imuran 50mg twice daily and Valtrex 500mg twice daily. Use medications as follows:Durezol 0.05% (pink top) - Stop using this medicationAtropine 1% (red top) - One drop twice a day in the right eyeTimolol 0.5% (yellow top) - One drop twice a day in the right eyeImuran 50mg - Take one tablet by mouth twice a dayValtrex 500mg - Take one tablet by mouth twice a dayPrednisone 5mg - Take 4 tablets by mouth every morning for one week, then 3 tablets every morning for one week, then 2 tablets every morning for one week then 1 tablet every morning for one week then discontinue.Patient understands with the start of IMT the need for frequent visits of every 6 weeks and lab draws every 5 weeks to monitor liver function. Patient understands all risks of the IMT and will begin therapy. Related to Scleritis of right eyeChronic anterior uveitis of right eyeVitreous syneresis of left eyeNuclear senile cataract of both eyes - second opinion with ddk Relate d to Scleritis of right eyeChronic anterior uveitis of right eyeVitreous syneresis of left eye - Discussed she is h aving flare up more often with medications. Would like patient to have second opinion with [facility]. Advised patient of condition. Will continue to observe condition and or symptoms. Continue drops. 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 questionable candidate for IMT, decision and eval with Dr. Staley. Related to Scleritis of right eyeChronic anterior uveitis of right eyeVitreous syneresis of left eye - exam OU--right eye inflammation is resolved post injection. Left eye is stable. Continue eyedrops as directed. Discussed diagnosis in detail with patient. Advised patient of condition. Will continue to observe condition and or symptoms. Call if VA worsens. Related to Chronic anterior uveitis of right eyeVitreous syneresis of left eyeNuclear sclerosis of both eyes - 1 month follow up exam Related to Chronic anterior uveitis of right eyeVitreous syneresis of left eyeNuclear sclerosis of both eyes - 1 month follow up exam Related to Chronic anterior uveitis of right eyeVitreous syneresis of left eyeNuclear sclerosis of both eyes - exam OU OD-discuss ed STK OD vs IOK which would recommend. IOK OD. IOK OD injection performed today without complications. Patient is to call with pain that is worsening or decrease in vision. Advised to use artificial tears and/or compresses throughout the day today and tomorrow for any irritation/discomfort. Pt to not use Durezol today, restart tomorrowRIGHT EYE - chronic uveitis- STK - mild improvement- IOK today 01/19, recheck in 1 month Related to Chronic anterior uveitis of right eyeVitreous syneresis of left eyeNuclear sclerosis of both eyes - 1 month (Possible STK OD)FU Re lated to Chronic anterior uveitis of right eye - Kenalog 40 OD inje ction performed today without complications. Patient is to call with pain that is worsening or decrease in vision. Advised to use artificial tears and/or compresses throughout the day today and tomorrow for any irritation/discomfort. Related to Chronic anterior uveitis of right eye - 2 wks STK OD Related to Chron ic anterior uveitis of right eyeVitreous syneresis of left eyeNuclear sclerosis of both eyes - Hold on cataract s urgery till patient is cleared by [facility]. Continue with all drops as started with referring doctor. Discussed diagnosis in detail with patient. Advised patient of condition. Will continue to observe condition and or symptoms. Patient instructed to call if condition gets worse. Call if VA worsens. Discussed possible need for Chemo drug use to control inflammation in the right eye Related to Chronic anterior uveitis of right eyeVitreous syneresis of left eyeNuclear sclerosis of both eyes Assessments Type Assessment Date assessment Choroiditis of both eyes 2024 assessment Chronic anterior uveitis of righ t eye assessment Scleritis of right eye assessment Vitreous floaters of both eyes assessment Vitreous syneresis of left eye assessment Age-related nuclear cataract, le ft eye assessment Other secondary cataract, right eye Patient Care Teams Name Effective Dates (start - stop) Status Members No Information
--- OUTSIDE RECORDS SUMMARY | 2025-02-26 07:49 | XMS_ITS | CCD ---
Author Organization [facility] Care Team Providers Care Keel Press Operator Name Role Phone Tj Garza MD Primary Care Provider [phone] TJ GARZA Primary Care Unavailable TJ GARZA Referring Unavailable ELIAS, MEJIA H. Admitting Unavailable ELIAS, MEJIA H. Attending Unavailable ELIAS, MEJIA H. Attending Unavailable ELIAS, MEJIA H. Referring Unavailable TJ GARZA Primary Care Unavailable TJ GARZA Primary Care Unavailable ELIAS, MEJIA H. Referring Unavailable Tj Garza Primary Care Physician Santiago Cano Unavailable Sawyer Greer Unavailable MD Tj Garza Primary Care Provider [phone] MD Sawyer Greer Attending Provider DR TJ AVALOS Consulting Unavailable HOY ., DR FUENTES [...] Unavailable HOY ., DR FUENTES Attending Unavailable UBZZ, DR ALE Sheppard Consulting Unavailable HOY ., DR FUENTES Consulting Unavailable HOY ., DR FUENTES Primary Care Unavailable HOY ., DR FUENTES Admitting Unavailable HOY ., DR FUENTES Attending Unavailable MD Tj Garza Primary Care Provider MD Edison Veronica II Attending Provider Edison Veronica II Unavailable MD Tj Garza Primary Care Provider MD Edison Veronica II Attending Provider MD Tj Garza Primary Care Provider MD Edison Veronica II Attending Provider MD Tj Garza Primary Care Provider [phone] MD Edison Veronica II Attending Provider Unavailable Primary Care Provider UnavailTj Fofana MD Primary Care Provider [phone] Tj Garza MD Primary Care Provider [phone] Tj Garza MD Attending Provider Edison Veronica II Admitting UnavailEdison Diaz II Attending UnavailTj Fofana Primary Care Unavailable Tj Garza Admitting Unavailable Tj Garza Primary Care Unavailable Tj Garza Attending Unavailable Tj Garza MD Primary Care Provider [phone] Tj Garza MD Primary Care Provider Allergies Allergy ClassificationReported Allergen(s)Allergy TypeDate of OnsetReaction(s) Facilitygrepafloxacin (3 sources)grepafloxacinDrug Zryutnq79-33-9691[facility] (20 sources)grepafloxacin; Translations: [grepafloxacin]Drug Kwjdfix25-85-1516 Skin reaction (observable entity), HivesGeneral Surgery Lucien (2 sources)grepafloxacinDrug AllergyThe [facility] (9 sources)Adhesive Tape; Translations: [adhesive tape]Propensity to adverse eufqgywth21-87-8072ThcelvxDyppdgtqzPe[facility] (1 source)grepafloxacinDrug Tbmtcap73-21-5178NdphwegnvDoctors [facility] (4 sources)Attends Briefs Brplq23-38-5923ItclqguLWMF Healthcare Medications Current Medications MedicationDrug Class(es)DatesSig (Normalized)Sig (Original)acetaminophen 325 mg / oxyCODONE hydrochloride 7.5 mg oral tablet (3 sources)Opioid AgonistStart: 11-19-2020 End: 49-56-1651xcaw 1 tablet by mouth every four hours as needed for pain oxyCODONE-acetaminophen (PERCOCET) 7.5-325 MG per tablet Indications: Post-op pain Take 1 tablet bymouth every 4 hours as needed for Pain for up to 41 days. 28 tablet 0 11/19/2020 12/30/2020 ActiveStart: 44-33-1024kutn 1 tablet by mouth every six hours as needed for pain1 tablet, Oral, EVERY 6 HOURS PRN, Pain Moderate (4-6), Starting on Tue11/18/20 at 1633 Maximum doseof acetaminophen is 4000 mg from all sources in 24 hours.ALPRAZolam 0.5 mg oral tablet (3 sources)BenzodiazepineStart: 11-07-2360Xdjmd 0.5 MG 1 tablet 30 minutes prior to MRI and one tab at time of MRI as needed Orally as ordered August, Activeamoxicillin 500 mg oral tablet (1 source)Penicillin-class AntibacterialStart: 96-34-7346kybi 4 tablets by mouth every hourAmoxicillin 500 MG 4 tablets Orally 1 hour prior to procedure for 1 days Feb, Activeaspirin 81 mg delayed release oral tablet (6 sources)Platelet Aggregation Inhibitor, Nonsteroidal Anti-inflammatory Drug Start: 87-15-4605jixd 1 tablet by mouth every twelve hoursAspirin 81 81 MG 1 tablet Orally Twice a day for 35 days MED TO BED UPON DISCHARGE DOS: 01/31/23 Jan, ActiveStart: 84-03-0426ugsa 1 tablet by mouth twice dailyAspirin 81 81 MG 1 tablet Orally Twice a day for 35 days MED TO BED UPON DISCHARGE DOS: 01/31/232022 Activeatorvastatin 10 mg oral tablet (1 source)HMG-CoA Reductase InhibitorStart: 46-11-8665bppe 10 mg by mouth once daily10 mg, Oral, NIGHTLY, First dose on Tue11/18/20 at 2100 Substituted for Simvastatin (ZOCOR).ceFAZolin (ANCEF) 2000 mg in dextrose 5 % 100 mL IVPB (1 source)Start: 11-18-2020 End: ,000 mg, Intravenous, EVERY 8 HOURS, 3 doses, First dose on Tue11/18/20 at 1815, Last dose on Tue11/19/20 at 1200, Post-opcephalexin 500 mg oral capsule (3 sources)Cephalosporin AntibacterialStart: 11-19-2020 End: 96-20-9082ahjq 1 capsule by mouth every eight hourscephALEXin (KEFLEX) 500 MG capsule Take 1 capsule by mouth every 8 hours for 20 doses 20 capsule 0 0 11/19/2020 11/26/2020 ActiveStart: 11-19-2020 End: 19-83-8563ecuq 1 dose by mouth three times coydu303 mg, Oral, EVERY 8 HOURS SCHEDULED (3 times per day), First dose on Tue11/19/20 at 0600, For 20 doses diazePAM 5 mg oral tablet (20 sources)BenzodiazepineStart: 11-18-2020 End: 06-69-2718jjww 1 tablet by mouth every six hours as needed for muscle spasmsdiazePAM (VALIUM) 5 MG tablet Indications: Muscle spasm Take 1 tablet by mouth every 6 hours as needed (Muscle spasms) for up to 5 days. 20 tablet 0 11/19/2020 11/24/2020 ActivediazePAM 10 MG Oral for 1 Days Not-Taking/WEK631 hr estradiol 0.87160 mg/hr transdermal system (20 sources)EstrogenStart: 02-04-2025 End: 93-16-5617etgnsnmff (Climara) 0.1 MG/24HR Indications: Follow-up encounter involving medication , Encounter for weight management , Hormone imbalance Place 1 patch over 7 days on the skin 1 (one) time per week4 patch 11 02/04/2025 03/06/2025 ActiveStart: 01-07-2025 End: 15-72-4211bhntkemjg (Climara) 0.075 MG/24HR Indications: Encounter for weight management , Postmenopausal HRT(hormone replacement therapy) , Hot flashes , Night sweats , Dyspareunia in female Place 1 patch over 7 days on the skin 1 (one) time per week 4 patch 3 01/07/2025 02/04/2025 Discontinued (Therapy completed)Start: 78-76-1442ogmztuakf (Estrace) 0.1 MG/GM vaginal cream 12/20/2024 ActiveStart: 12-05-2024 End: 85-77-2605xbaggtmkn (Climara) 0.05 MG/24HR Indications: Postmenopausal HRT (hormone replacement therapy) , Hot flashes , Night sweats Place 1 patch over 7 days on the skin 1 (one) time per week 12 patch 3 12/05/2024 02/04/2025 Discontinued (Therapy completed)Start: 03-14-2024 End: 28-51-5000jkobtcdzq (Estrace) 0.1 MG/GM vaginal cream Indications: Dyspareunia in female Insert 2 g into the vagina at bedtime At bedtime for one month, then at bedtime twice a week. 42.5 g 3 03/14/2024 06/12/2024 Gosgki812 ml glucose 50 mg/ml / sodium chloride 4.5 mg/ml injection (1 source)Start: 81-56-5212Ufbrazohqrb, at 100 mL/hr, CONTINUOUS, Starting on Tue11/18/20 at 1815, Post-op1 ml HYDROmorphone hydrochloride 1 mg/ml cartridge (2 sources)Opioid AgonistStart: 11-18-2020 End: 83-11-8029ydif 0.5 mg by mouth every four hours as needed for pain0.5 mg, Intravenous, EVERY 4 HOURS PRN, Pain Moderate (4-6), Starting on Tue11/18/20 at 1747 If oraland IV narcotics ordered, use oral first and only use IV if oral is ineffective or cannot take oral. Do Not give oral and IV within 1 hour of each other unless specifically ordered.irbesartan 150 mg oral tablet (20 sources)Angiotensin 2 Receptor BlockerStart: 36-87-1467ohfq 1 tablet by mouth once daily in the morningIrbesartan 150 mg tablet Active 150 MG PO Every morning January 20, 2023 12:00am Complies with drug therapylansoprazole 30 mg delayed release oral capsule (20 sources)Proton Pump Inhibitorlansoprazole (Prevacid) [address] capsule Take 30 mg by mouth if needed (acid reflux) ActiveLANSOPRAZOLE PO Take 30 mg by mouth Activelansoprazole 30 mg Cap-DR (2 sources)Start: 33-52-8866tzom 1 capsule by mouth once dailylansoprazole 30 mg Cap-DR 30 mg = 1 cap(s), Oral, Daily, Refills(s) 0 Start Date: 06/08/21 Status: Orderedlosartan potassium 25 mg oral tablet (1 source)Angiotensin 2 Receptor BlockerStart: 19-42-4976xfmj 25 mg by mouth once daily25 mg, Oral, DAILY, First dose on Tue11/18/20 at 1815 Substituted for Irbesartan (AVAPRO).meloxicam 15 mg oral tablet (17 sources)Nonsteroidal Anti-inflammatory DrugStart: 60-48-8729tnft 1 tablet by mouth every twenty-four hoursMeloxicam 15 MG 1 tablet Orally Once a day for 30 day(s) Jan, ActiveMultiple Vitamins-Minerals (THERAPEUTIC MULTIVITAMIN- MINERALS) tablet (2 sources)take 1 tablet by mouth once dailyMultiple Vitamins-Minerals (THERAPEUTIC MULTIVITAMIN-MINERALS) tablet Take 1 tablet by mouth daily 0 Active take 1 tablet by mouth once dailyMultiple Vitamins-Minerals (THERAPEUTIC MULTIVITAMIN-MINERALS) tablet Take 1 tablet by mouth daily 0 Suspended Multivitamin preparation (7 sources)Start: 38-09-5610pmtm 1 tablet by mouth once dailyMultivitamin Active 1 TAB PO Daily January 19, 2023 11:00pmStart: 27-66-1408bjvm 1 tablet by mouth once dailyMultivitamin Active 1 TAB PO Daily January 20, 2023 12:00am phentermine hydrochloride 37.5 mg oral tablet (19 sources)Sympathomimetic Amine AnorecticStart: 01-07-2025 End: 78-65-5087ungx 1 tablet by mouth before mealtimephentermine (Adipex-P) 37.5 MG tablet Indications: Encounter for weight management Take 1 tablet (37.5 mg) by mouth in the morning. Take before meals. 30 tablet 02/04/2025 03/06/2025 Activetake 1 capsule by mouth every twenty-four hoursAdipex-P 37.5 MG 1 capsule Orally Once a day Not-Taking/PRNPromethazine (1 source)PhenothiazineStart: 19-89-9658qlxsxvmxilvh (PHENERGAN) tablet 12.5 mg simvastatin 20 mg oral tablet (20 sources)HMG-CoA Reductase InhibitorStart: 25-22-6658iflj 1 tablet by mouth once daily in the morningSimvastatin 20 mg tablet Active 20 MG PO Every morning January 20, 2023 12:00am Complies with drugtherapy3 ml sodium chloride 9 mg/ml injection (3 sources)Start: 15-16-4542ytor 1 dose intravenously twice daily5-40 mL, Intravenous, EVERY 12 HOURS SCHEDULED (2 times per day), First dose on Tue11/18/20 at 2100 For Line Patency: Peripheral IV = 5 mL; Midline or Central Line = 10 mL/lumen. Iffollowing IV push medication, administer flush at same [...] Midline or Central Line = 20 mL/lumen Post-opStart: 59-81-3174zpqu 25 mL intravenously every hour as yhxhub21 mL, Intravenous, at 100 mL/hr, PRN, If patient receiving piggyback infusions without ordered maintenance IV fluids or with frequent/long duration piggyback infusions, Starting on Tue11/18/20 at 1747 Administer at the same rate as the piggyback being infused. Post-opStart: 46-28-8027hftl 5-40 mL intravenously once 5-40 mL, Intravenous, PRN, Line Care, Starting on Tue11/18/20 at 1747 After every IV line use Post-op Completed/Discontinued Medications MedicationDrug Class(es)DatesSig (Normalized)Sig (Original)0.5 ML tirzepatide 5 MG/ML Auto-Injector [Mounjaro] (11 sources)Mounjaro 2.5 MG/0.5ML as directed Subcutaneous Not-TakingMounjaro 2.5 MG/0.5ML as directed Subcutaneous Activeacetaminophen 500 mg oral tablet (20 sources)Start: 78-22-8525hmwp 2 tablets by mouth every eight hours as needed for painAcetaminophen 500 MG 2 tablets for pain Orally every 8 hrs for 30 days MED TO BED UPON DISCHARGE DOS: 01/31/23 Jan, Not-Taking/PRNStart: 01-20-2023 End: 80-66-2671vshg 2 capsules by mouth every six hours as needed for pain Acetaminophen (Tylenol Extra Strength) 500 mg Capsule Discontinued 1000 MG PO Q6H as needed for Pain January 20, 2023 12:00am October 25, 2024 8:13amtake 2 tablets by mouth every six hours as neededacetaminophen (Tylenol) 500 MG tablet Take 1,000 mg by mouth every 6 (six) hours if needed Activetake 1 capsule by mouth every six hoursAcetaminophen 500 MG 1 capsule as needed Orally every 6 hrs Activebiotin 10 mg oral capsule (8 sources)Start: 01-20-2023 End: 50-23-0114nxtl 1 capsule by mouth once dailyBiotin 10,000 mcg Capsule Discontinued 80022 MCG PO Daily January 20, 2023 12:00am October 2558:13am calcium chloride 0.0014 meq/ml / potassium chloride 0.004 meq/ml / sodium chloride 0.103 meq/ml / sodium lactate 0.028 meq/ml injectable solution (1 source)Start: 11-18-2020 End: 42-14-0612tkokwwjo ringers infusioncefadroxil 500 mg oral capsule (6 sources)Cephalosporin AntibacterialStart: 19-05-5429hztq 1 capsule by mouth every twelve hoursCefadroxil 500 MG 1 tablet Orally every 12 hrs for 7 days MED TO BED UPON DISCHARGE DOS: 01/31/23 Jan, Not-Taking/PRNcelecoxib 200 mg oral capsule (6 sources)Nonsteroidal Anti-inflammatory DrugStart: 29-87-8979tget 1 capsule by mouth every twelve hoursCelecoxib 200 MG 1 capsule with food Orally Twice a day for 30 days MED TO BED UPON DISCHARGE DOS: 01/31/23 Jan, Not-Taking/PRN diclofenac sodium 75 mg delayed release oral tablet (20 sources)Nonsteroidal Anti-inflammatory DrugStart: 01-20-2023 End: 62-82-0562nvpz 1 tablet by mouth twice dailyDiclofenac Sodium 75 mg tablet,delayed release (DR/EC) Discontinued 75 MG PO Twice daily January 20, 2023 12:00am February 02, 2024 8:18amdocusate sodium 50 mg / sennosides, shelter 8.6 mg oral tablet (9 sources)Start: 05-85-6877xxna 2 tablets by mouth every twenty-four hours Senokot S 8.6-50 MG 2 tablets Orally Once a day for 30 days MED TO BED UPON DISCHARGE DOS: 02/01/2312 Not-Taking/PRNStart: 11-18-2020 End: 06-56-1207gier 1 tablet by mouth twice dailysennosides-docusate sodium (SENOKOT-S) 8.6-50 MG tablet Take 1 tablet by mouth 2 times daily for 10days 20 tablet 0 11/19/2020 11/29/2020 Activedoxepin hydrochloride 10 mg oral capsule (8 sources)Tricyclic AntidepressantStart: 01-20-2023 End: 99-16-8084btoa 1 capsule by mouth once daily at bedtime as needed for sleep Doxepin 10 mg capsule Discontinued 10 MG PO Daily at bedtime as needed for Sleep January 20, 2023 12:00am February 02, 2024 8:19am2 ml fentaNYL 0.05 mg/ml injection (1 source)Opioid AgonistStart: 11-18-2020 End: 51-59-0589dyfzpSEA (SUBLIMAZE) injection 50 mcgmethylPREDNISolone 4 mg oral tablet (5 sources)CorticosteroidStart: 84-46-3661watdpxKSHFTHWkftny 4 MG as directed Orally for 6 days Jan, Not-Taking/PRNmorphine sulfate 15 mg extended release oral tablet (6 sources)Opioid AgonistStart: 14-57-2962kobq 1 tablet by mouth every twelve hours as needed for painMorphine Sulfate ER 15 MG 1 tablet for breakthrough pain only Orally every 12 hrs for 5 days MED TOBED UPON DISCHARGE DOS: 01/31/23 Jan, Not-Taking/PRNmounjaro 2.5 mg/0.5ml solution pen-injector (1 source)Mounjaro 2.5 MG/0.5ML as directed Subcutaneous Not-Taking/PRN Multivitamin Tablet (1 source)Start: 01-20-2023 End: 70-01-1525jobc 1 tablet by mouth once dailyMultivitamin Tablet Discontinued 1 TAB PO Daily January 20, 2023 12:00am October 25, 2024 8:13amondansetron 8 mg oral tablet (6 sources)Serotonin-3 Receptor AntagonistStart: 29-18-0955ijkq 1 tablet by mouth three times daily as needed for nauseaOndansetron HCl 8 MG 1 tablet as needed for nausea Orally Three times a day for 10 days MED TO BED UPON DISCHARGE DOS: 01/31/23 Jan, Not-Taking/PRNoxyCODONE hydrochloride 5 mg oral tablet (6 sources)Opioid AgonistStart: 04-51-3736xdms 1 tablet by mouth every four hours as needed for painoxyCODONE HCl 5 MG 1 tablet as needed for pain Orally every 4 hrs for 10 days MED TO BED UPON DISCHARGE DOS: 01/31/23 Jan, Not-Taking/PRNpantoprazole 20 mg delayed release oral tablet (6 sources)Proton Pump InhibitorStart: 39-11-2774tdih 1 tablet by mouth every twenty-four hoursProtonix 20 MG 1 tablet Orally Once a day for 35 days MED TO BED UPON DISCHARGE DOS: 01/31/23 Jan, Not-Taking/PRNpolyethylene glycol 3350 38912 mg powder for oral solution (7 sources)Osmotic LaxativeStart: 90-45-6712RwxiAyb 17 GM 1 packet mixed with 8 ounces of fluid Orally Once a day for 7 days MED TO BED UPON DISCHARGE DOS: 01/31/23 Jan, Not-Taking/PRNStart: g, Oral, DAILY, First dose on Tue11/18/20 at 1815, Post-opProvitalize (8 sources)Start: 01-20-2023 End: 05-72-0232eocq 1 dose by mouth once dailyProvitalize Discontinued 1 DOSE PO Daily January 20, 2023 12:00am October 25, 2024 8:14amStart: 81-56-1164nnug 1 dose by mouth once dailyProvitalize Active 1 DOSE PO Daily January 19, 2023 11:00pmStart: 09-95-1326hgpm 1 dose by mouth once dailyProvitalize Active 1 DOSE PO Daily January 20, 2023 12:00amSUMAtriptan 100 mg oral tablet (20 sources)Serotonin-1b and Serotonin-1d Receptor AgonistStart: 06-08-2021 End: 34-74-7928zbxz 1 tablet by mouth once as neededSumatriptan Succinate (Imitrex) 100 mg Tablet Discontinued 100 MG PO Once as needed for migraines Oc tober 2022 12:00am February 02, 2024 8:19amTirzepatide (8 sources)Start: 01-20-2023 End: 55-48-0863Rgdvcrzvgdc (Mounjaro) 5 mg/0.5 mL pen injector Discontinued 5 MG SUBCUT every week January 20, 2023 12:00am February 02, 2024 8:19am tuesdays Start: 14-61-0698Ocfbsniapoi (Mounjaro) 5 mg/0.5 mL pen injector Active 5 MG SUBCUT every week January 19, 2023 11:00pm tuesdaysStart: 68-62-9373Mzvxxoojhrd (Mounjaro) 5 mg/0.5 mL pen injector Active 5 MG SUBCUT every week January 20, 2023 12:00am tuesdaystraMADol hydrochloride 50 mg oral tablet (15 sources)Opioid AgonistStart: 97-80-8593soku 1 tablet by mouth every six hours as needed for paintraMADol HCl 50 MG 1 tablet as needed for pain Orally every 6 hrs for 10 days MED TO BED UPON DISCHARGE DOS: 01/31/23 Jan, Not-Taking/PRNStart: 15-02-8449iewp 1 tablet by mouth twice daily as needed traMADol HCl 50 MG 1 tablet as needed Orally up to twice daily as needed for 15 days Nov, Not-Taking/PRN Problems Active Problems Problem ClassificationProblemDateDocumented DateEpisodic/ChronicAbdominal hernia (8 sources)Inguinal hernia; Translations: [Unilateral inguinal hernia, without obstruction or gangrene, not specified as recurrent]Onset: 87-95-1663Hgehftyv Administrative/social admission (6 sources)Patient encounter status; Translations: [Persons encountering health services in other specified circumstances]93-06-3100VdxwtqdfSqdowtt disorders (2 sources)Bpzcfcf52-49-1227EdqchtqOwnezj (2 sources)Ntznev36-90-0718TwuisynNcwpeuxg mellitus without complication (2 sources)Diabetes idrdvfkh07-56-0018AcreztyEqmlezlyr of lipid metabolism (2 sources)Nalqavblxlxciw41-41-1035VlxmbsfEmrzkemhi hypertension (2 sources)Hypertensive fqapjezg08-03-1752CdcjoiqWhimctqj; including migraine (2 sources)Migraine without nvru25-48-6460LoldghuGivdxzhvtz disorders (4 sources)Postmenopausal state; Translations: [Hormone replacement therapy] 33-44-4338RulwvekdJcjftwmstxmlap (20 sources)Arthropathy of left hip joint; Translations: [Unilateral primary osteoarthritis, left hip]ChronicOsteoporosis (8 sources)Primary osteoporosis; Translations: [Age-related osteoporosis without current pathological fracture]ChronicOther aftercare (8 sources)Patient encounter status; Translations: [Aftercare following joint replacement surgery]41-14-6781TvjkwauSlasg aftercare (7 sources)Aftercare following joint replacement surgery; Translations: [Aftercare following joint replacement]Onset: 52-73-1348VbjoefzBgvhp aftercare (1 source)Other terminal carman (current) drug therapyEpisodicOther connective tissue disease (5 sources)Hip joint prosthesis present; Translations: [Presence of left artificial hip joint]ChronicOther connective tissue disease (5 sources)History of total hip arthroplasty; Translations: [Presence of left artificial hip joint]ChronicOther connective tissue disease (9 sources)Presence of left artificial hip joint; Translations: [Presence of left artificial hip joint]Onset: 86-55-9843VsdqardGelab connective tissue disease (1 source)Spasm; Translations: [Other muscle spasm]EpisodicOther connective tissue disease (18 sources)Trochanteric bursitis; Translations: [Trochanteric bursitis, left hip]EpisodicOther connective tissue disease (6 sources)Trochanteric bursitis, left hipEpisodicOther connective tissue disease (1 source)Arthrodesis statusEpisodicOther endocrine disorders (2 sources)Disorder of endocrine system; Translations: [Endocrine disorder, unspecified]30-67-3079HgkdaojdTkfhd female genital disorders (6 sources)Pain in female genitalia on intercourse; Translations: [Unspecified dyspareunia]73-84-8226InnhahtXmlle nervous system disorders (3 sources)Spinal cord compression; Translations: [Unspecified cord compression] Onset: 16-81-5871AjokserLvsnf nervous system disorders (17 sources)Chronic pain; Translations: [Other chronic pain]ChronicOther nervous system disorders (6 sources)Other chronic painChronicOther nervous system disorders (1 source)Postoperative pain ; Translations: [Other acute postprocedural pain] EpisodicOther non-traumatic joint disorders (14 sources)Arthralgia of the pelvic region and thigh; Translations: [Pain in left hip]EpisodicOther non-traumatic joint disorders (4 sources)Pain in left hipEpisodicOther nutritional; endocrine; and metabolic disorders (2 sources)Body mass index 30+ - kspsehv14-48-1494FayaqlmKiaqo screening for suspected conditions (not mental disorders or infectious disease) (6 sources)Encounter for screening mammogram for malignant neoplasm of breast; Translations: [Patient encounter status]Onset: 25-07-4540MjaqsdkuEcqyf skin disorders (2 sources)Alopecia lewcfd24-14-7488PdphjhjwVlvly skin disorders (4 sources)Night sweats; Translations: [Generalized hyperhidrosis]12-05-2024 EpisodicResidual codes; unclassified (2 sources)Sleep -98-3334CouvglcXbvmntwv codes; unclassified (2 sources)Pain; Translations: [Pain, unspecified]EpisodicResidual codes; unclassified (1 source)Family history of leukemia; Translations: [FAMILY HISTORY OF LEUKEMIA] Onset: 80-65-3956YzleehfpUgjlxodu codes; unclassified (2 sources)Menopause present; Translations: [Asymptomatic menopausal state] 53-64-1623YtsxkppsLlhdlyon codes; unclassified (4 sources)Flushing; Translations: [Flushing]79-14-0666YloeiyprWlgoqqackgg; intervertebral disc disorders; other back problems (20 sources)Cervical spondylosis with myelopathy; Translations: [Other spondylosis with myelopathy, cervical region]Onset: 10-64-9096OlpyenxMrumqsj disorders (1 source)Nontoxic single thyroid nodule; Translations: [Nontoxic single thyroid nodule]Onset: 71-16-0136Lhbbyrg Past or Other Problems Problem ClassificationProblemDateDocumented DateEpisodic/ChronicSpondylosis; intervertebral disc disorders; other back problems (8 sources)Spinal stenosis in cervical region; Translations: [Spinal stenosis, cervical region]Onset: 29-55-2906UnsjefhqYwshtheisayw (1 source)Other low back pain M54.59Unclassified (2 sources)Patient encounter -58-1168 Results Test NameValueInterpretationReference RangeFacilityCoagulation Profileon 13-81-3296uGCC Coag (Bld) [Time]29.4 yFgrbcf56.1-36.5The [facility] Physician GroupComment on above:Result Comment: A hematocrit value greater than 55% may lead to inaccurate results in coagulation testing. Patients having hematocrit values >55% require a special collection tube for coagulation studies. Please contact the laboratory at [phone] for redraw instructions. PERFORMED BY: [place] [place] [id number] PATHOLOGIST CLINICAL VETERINARIAN HAMMAD NAGY M.D.Performed By: #### PLT, PP #### [address] [address] USAINR in Platelet poor plasma by Coagulation assayOrdered By: Tj Garza on 49-98-1053ARQ Coag (PPP) [Relative time]1.0 {INR}Normal Doctors HospitalComment on above:INR Therapeutic Range A) Pre- and Peroperative OAT started two weeks before surgery. NOT HIP SURGERY: 1.5 - 2.5 HIP SURGERY: 2 - 3B) Primary and secondary prevention of venous THROMBOSIS: 2 - 3C) Active venous thrombosis, pulmonary embolismand prevention of recurrent venous thrombosis: 2 - 3D) Prevention of arterial thromboembolismincluding patients with mechanical heart valves: 3 - 4.5Result Comment: INR Therapeutic Range A) Pre- and [...] patients with mechanical heart valves: 3 - 4.5Performed By: #### PLT, PP #### [facility] [address] [place] [address] USALon 10-25-2024L Specimen: [id number] Received: 10/26/24 Status: ABRAN Dunn Num: [id number] Spec Type: Cytology Subm Dr: Reggie Vallejo II, MD Tissues: A FNA SLIDES NOPATH (THYROID FNA- ISTHMUS) B FNA SLIDES NOPATH (LT INF THYROID LOBE) Procedures: -/2, Cyto Int and Re/2, DIFF QWIK/7, PAPSTN/9 Age/ Patient Sex Location Account Attending Physician Ana Cruz 53/F [id number] Tj Garza MD SPEC NUM: [id number] RECD: 10/26/24 STATUS: ABRAN DUNN NUM: [id number] CHANO: 10/25/[address]: Reggie Vallejo II, MD ENTERED: 10/26/24 [facility] DR: Tj Garza MD SPEC TYPE: Cytology DEPT: CNG ENTERED BY: [id number] RECV BY: [id number] ORDERED: -/2, Cyto Int and Re/2, DIFF QWIK/7, PAPSTN/9 ORDERED: -/2, Cyto Int and Re/2, DIFF QWIK/7, PAPSTN/9 Pathological Diagnosis A. Thyroid Isthmus nodule, fine needle aspiration (ThinPrep and Smears Slides): - Satisfactory for evaluation. - Sheets of benign-appearing follicular cells in a background of macrophages and watery colloid consistent with benign follicular nodule/cellular adenomatous nodule ([place] Category: II). - Negative for malignant cells. B. Thyroid, left inferior nodule, fine needle aspiration (ThinPrep and Smears Slides): - Suboptimal for evaluation due to scant cellularity. - Few benign- appearing follicular cells and watery colloid, favor benign follicular nodule ([place] Category: II). - Negative for malignant cells. [...] examination. (YC/nh) Specimen: [id number] Received: 10/26/24 Status: DHAVALJose Luis Dunn Num: [id number] Spec Type: Cytology Subm Dr: Reggie Vallejo II, MD Tissues: A FNA SLIDES NOPATH (THYROID FNA- ISTHMUS) B FNA SLIDES NOPATH (LT INF THYROID LOBE) Procedures: -/2, Cyto Int and Re/2, DIFF QWIK/7, PAPSTN/9 Patient: Ana Crzu [id number] (Continued) Specimen: [id number] Received: 10/26/24 (Continued) Gross Description (Continued) Signed (signature on file) August Cuellar MD 10/26/241001 Specimen: [id number] Received: 10/26/24 Status: ABRAN Dunn Num: [id number] Spec Type: Cytology Subm Dr: Reggie Vallejo II, MD Tissues: A FNA SLIDES NOPATH (THYROID FNA- ISTHMUS) B FNA SLIDES NOPATH (LT INF THYROID LOBE) Procedures: -/2, Cyto Int and Re/2, DIFF QWIK7, PAPSTN9 Patient: Ana Cruz [id number] (Continued) Specimen: [id number] Received: 10/26/24-831 (Continued) Gross Description (Continued) B. (Left Inferior Pole Thyroid Lobe) Received fixed in Cytolyt is 30 ml red cloudy fixed fluid for cytology said to have been obtained as Left Inferior Pole Thyroid Lobe . ThinPrep preparations are prepared for microscopic examination. Also received are 8 total smeared slides and a Thyroseq vial stored at -20 for microscopic examination. (YC/ga) Immediate Evaluation On Site Adequacy: A. Isthmus thyroid Nodule, Ultrasound-guided FNA: - Pass #1-2: Adequate YC, 10/25/24. 9:50 AM B. Left thyroid Nodule, Ultrasound-guide FNA: - Pass#1 to #3: Few Follicular cells, inadequate. - Pass #4: Blood YC, 10/25/24, 10 A.M. Microscopic Description A B: Microscopic examination is performed. CPT Codes 39427 x2, 91518 x2 Specimen: [id number] Received: 10/26/24 Status: ABRAN Dunn Num: [id number] Spec Type: Cytology Subm Dr: Reggie Vallejo II, MD Tissues: A FNA SLIDES NOPATH (THYROID FNA- ISTHMUS) B FNA SLIDES NOPATH (LT INF THYR (more content not included)...NormalThe [facility] Physician GroupPlatelets [#/volume] in Blood by Automated countOrdered By: Tj Garza on 54-53-0367Xujsnkvkp (Bld) [#/Vol]286 10*3/nKLkaspn439-189 Doctors HospitalComment on above:Result Comment: PERFORMED BY: [place] [address] PATHOLOGIST CLINICAL VETERINARIAN HAMMAD NAGY M.D.Performed By: #### PLT, PP #### [facility] [address] [place] [address] 19559 USAProthrombin time (PT)Ordered By: Tj Garza on 10-25-2024 PT Coag (PPP) [Time]11.6 sNormal9.0-12.9Doctors HospitalComment on above:A hematocrit value greater than 55% may lead to inaccurate results in coagulation testing. Patientshaving hematocrit values >55% require a special collection tube for coagulation studies. Please contact the laboratory at [phone] for redraw instructions.Result Comment: A hematocrit value greater than 55% may lead to inaccurate results in coagulation testing. Patients having hematocrit values >55% require a special collection tube for coagulation studies. Please contact the laboratory at [phone] for redraw instructions.Performed By: #### PLT, PP #### [facility] [address] [place] [address]4476 USAUS needle aspirationon 95-26-7458SG needle aspiration [facility] Main [place] [address] [place] [address] Ultrasound Report Signed Patient: Ana Cruz MR#: [id number] : 1970 Acct:[id number] Age/Sex: 53 / F ADM Date: 10/25/24 Loc: Room: Type: [facility] Attending Dr: Tj Garza MD Ordering Provider: Tj Garza MD Date of Service: 10/25/24 US/US needle aspiration: THYROID NODULES Copies to: Tj Garza MD US needle aspiration 10/25/2024 10:54 [...] Vallejo M.D. 10/25/2024 3:57 PM Dictation Location: [place] [address] Tech: Renetta Cesar Transcribed By: SAAD 10/25/24 155 Dictated By: Reggie Vallejo II, MD 10/25/24 155 Signed By: 10/25/24 155[facility] Physician GroupaPTT in Platelet poor plasma by Coagulation assayOrdered By: Tj Garza on 22-94-5464tDKI Coag (PPP) [Time]29.4 s25.1-36.5FCincinnati Children's Hospital Medical CenterComment on above:A hematocrit value greater than 55% may lead to inaccurate results in coagulation testing. Patients having hematocrit values >55% require a special collection tube for coagulation studies. Please contact the laboratory at [phone] for redraw instructions. MM TOMOSYNTHESIS SCREENING BIon 24-19-[place]06[place] [id number] Mammography Report Signed Patient: ANA CRUZ MR#: [id number] : 1970 Acct:[id number] Age/Sex: 53 / F ADM Date: 04/30/24 Loc: MAMMO Attending Dr: Ze Pan D.O. Ordering Physician: Ze Pan D.O. Results: Date of Service: 04/30/24 Follow Up: Procedure(s): MM tomosynthesis screening BI Accession Number(s): [id number] cc: Ze Pan D.O.; Tj Garza M.D. Patient Name: ANA CRUZ MR#: [id number] : 1970 Exam Date: 04/30/2024 Ordering Doctor: [...] aml cancer at age 24. LOCATION: [facility] BREAST COMPOSITION: The breasts are heterogeneously [...] BIOPSIED. Dictated by: Ale Ponce MD on 04/30/2024 at 09:02 Approved by: Ale Ponce MD on 04/30/2024 at 09:05 Dictated By: Ale Ponce M.D. Signed By: 04/30/24906 DD/ 4 TD/TT: Lift Truck Operator:RUBIAadiologdelvin, MD Mahendra - 04/30/2024 [place] [address] Mammography Report Signed Patient: ANA CRUZ MR#: [id number] : 1970 Acct:[id number] Age/Sex: 53 / F ADM Date: 04/30/24 Loc: MAMMO Attending Dr: Ze Pan D.O. Ordering Physician: Ze Pan D.O. Results: Date of Service: 04/30/24 Follow Up: Procedure(s): MM tomosynthesis screening BI Accession Number(s): [id number] cc: Ze Pan D.O.; Tj Garza M.D. Patient Name: ANA CRUZ MR#: [id number] : 1970 Exam Date: 04/30/2024 Ordering Doctor: [...] aml cancer at age 24. LOCATION: [facility] BREAST COMPOSITION: The breasts are heterogeneously [...] BIOPSIED. Dictated by: Ale Ponce MD on 04/30/2024 at 09:02 Approved by: Ale Ponce MD on 04/30/2024 at 09:05 Dictated By: Ale Ponce M.D. Signed By: 04/30/24906 DD/ 4 TD/TT: Lift Truck Operator: MELIDA HealthcareRadiology Study observation (narrative)[facility] Health SystemMM TOMOSYNTHESIS SCREENING BIOrdered By: Radiologist Radiology on 49-48-5543KLPY Healthcare Work Phone: XR DEXA AXIAL SKELETONon [phone] [address] XRay Report Signed Patient: ANA CRUZ MR#: [id number] : 1970 Acct:[id number] Age/Sex: 53 / F ADM Date: 04/30/24 Loc: MAMMO Attending Dr: Ze Pan D.O. Ordering Physician: Ze Pan D.O. Date of Service: 04/30/24 Procedure(s): XR DEXA axial skeleton Accession Number(s): [id number] cc: Ze Pan D.O.; Tj Garza M.D. [place] [address] Patient Name: ANA CRUZ MRN: [id number] date: 1970 Sex: F Assigned Patient Location: [facility] Current Patient Location: [facility] Accession/Order Number: [id number] Exam Date: 04/30/2024 07:35 Report Date: 04/30/2024 08:37 At the request of: ZE PAN Procedure: XR DEXA axial skeleton EXAMINATION: [...] prevention and treatment of osteoporosis. Osteoporos Int. 2021;33(10):1504-4723. doi: 10.1007/t58291-874-69334-q. Epub 2021Aug 13. Erratum in: Osteoporos Int. 2021Nov 12;: PMID: 23099784; PMCID: [id number]. Electronically authenticated by: ALE OPNCE Date: 04/30/2024 08:37 Dictated By: Ale Ponce M.D. Signed By: 04/30/24 0839 DD/ 0837 TD/TT: Lift Truck Operator:RUBIAadiologdelvin, RadiologistMD - 04/30/2024 [place] [address] XRay Report Signed Patient: ANA CRUZ MR#: [id number] : 1970 Acct:[id number] Age/Sex: 53 / F ADM Date: 04/30/24 Loc: MAMMO Attending Dr: Ze Pan D.O. Ordering Physician: Ze Pan D.O. Date of Service: 04/30/24 Procedure(s): XR DEXA axial skeleton Accession Number(s): [id number] cc: Ze Pan D.O.; Tj Garza M.D. [place] [address] Patient Name: ANA CRUZ MRN: [id number] date: 1970 Sex: F Assigned Patient Location: [facility] Current Patient Location: [facility] Accession/Order Number: [id number] Exam Date: 04/30/2024 07:35 Report Date: 04/30/2024 08:37 At the request of: ZE PAN Procedure: XR DEXA axial skeleton EXAMINATION: [...] prevention and treatment of osteoporosis. Osteoporos Int. 2021;33(10):2735-4423. doi: 10.1007/k34124-604-11834-y. Epub 2021Aug 13. Erratum in: Osteoporos Int. 2021Nov 12;: PMID: 83393173; PMCID: [id number]. Electronically authenticated by: ALE PONCE Date: 04/30/2024 08:37 Dictated By: Ale Ponce M.D. Signed By: 04/30/2439 DD/ 6 TD/TT: Lift Truck Operator: MELIDA HealthcareRadiology Study observation (narrative)[facility] Health SystemXR DEXA AXIAL SKELETONOrdered By: Radiologist Radiology on 95-05-1333IWHV Healthcare Work Phone: IGP,APTIMA HPV,AGE GDLNon 85-48-5061ZFN GDLN ACOG TESTINGNote.[facility] HealthcareComment on above:TESTS RESULT FLAG UNITS REF RANGE LAB Clinician Provided Cytology Information Source.............Vagina No. of containers..01 ThinPrep Vial Age Algo ACOG Darline... 30-65 01 FLAG LEGEND: L-Low Normal,H-High Normal,LL-Alert Low,HH-Alert High <-Panic Low,>-Panic High,A-Abnormal,AA-Critical Abnormal Performed at: 01 = [employer] [address] Michelle Rahman MD, HPV APTIMANegativeNegativeNOMS HealthcareComment on above:This nucleic acid amplification test detects fourteen high- risk HPV types (16,18,31,33,35,39,45,51,52,56,58,59,66,68) without differentiation. Performed at: = - [facility] [id number] Pet Stylist: Michelle Rahman MD, Phone: [phone] Performed at: [facility] Cyto Histo [address] [place] [id number] Pet Stylist: Chris Enriquez MD, Phone: [phone] IGP, APTIMA HPV, RFX 16/18,45Note.NOMS HealthcareComment on above:TESTS RESULT FLAG UNITS REF RANGE LAB DIAGNOSIS: 02 NEGATIVE FOR INTRAEPITHELIAL LESION OR MALIGNANCY. CELLULAR CHANGES ASSOCIATED WITH ATROPHY ARE PRESENT. THIS SPECIMEN WAS RESCREENED PART OF OUR PERFORMANCE ARCHITECT PROGRAM. Specimen adequacy: 02 Satisfactory for evaluation. Performed by: 02 Chanelle Padilla Rn Anesthesiology ([facility]) QC reviewed by: 02 Simon Wong Rn Anesthesiology ([facility]) . 02 Note: Note 03 The Pap [...] High,A-Abnormal,AA-Critical Abnormal Performed at: 02 [facility] Cyto Histo [address] [place] [address] Chris Enriquez MD, 03 WB [facility] [address] [address] Michelle Rahman MD, SPATULA-ALONE VAGINA CLINISYNCNOMS HealthcareXR hip LT min 2V(w/wo pelvis)*on 91-09-9895NA hip LT min 2V(w/wo pelvis)*[facility] [address] [place] [address] XRay Report Signed Patient: Ana Cruz MR#: [id number] : 1970 Acct:[id number] Age/Sex: 53 / F ADM Date: 02/02/24 Loc: [facility] Room: Type: [facility] Attending Dr: Edison Veronica II, MD Copies [...] Radha Godinez M.D.02/02/2024 9:56 AM Dictation Location: [employer]--10 Transcribed By: [facility] 02/02/24 0956 Dictated By: Radha Godinez MD 02/02/24 0950 Signed By: 02/02/24 0956[facility] Physician GroupXR hip LT min 2V(w/wo pelvis)*on 49-78-3871MG hip LT min 2V(w/wo pelvis)*[facility] Introhive Other XR hip LT min 2V(w/wo pelvis)*[facility] Main [facility] Introhive Other XR hip LT min 2V(w/wo pelvis)*[address] [place] [address] Introhive Other XR hip LT min 2V(w/wo pelvis)*[place], [place] [address] Introhive Other XR hip LT min 2V(w/wo pelvis)*[facility] ReportSe[facility] Introhive Other XR hip LT min 2V(w/wo pelvis)*[facility] Introhive Other XR hip LT min 2V(w/wo pelvis)*Patient: Ana Cruz MR#: [id number] Introhive Other XR hip LT min 2V(w/wo pelvis)*: 1970 Acct:[id number] Other XR hip LT min 2V(w/wo pelvis)*Age/Sex: 52 / F ADM Date: 04/20/23My1login Other XR hip LT min 2V(w/wo pelvis)*Loc: [facility] Room: Type: [facility] Introhive Other XR hip LT min 2V(w/wo pelvis)*Attending Dr: Edison Veronica II, MDMy1login Other XR hip LT min 2V(w/wo pelvis)*Copies to: Edison Veronica MDMy1login Other XR hip LT min 2V(w/wo pelvis)*Ordering Provider: Edison Veronica MDMy1login Other XR hip LT min 2V(w/wo pelvis)*Date of Service: 04/20/23My1login Other XR hip LT min 2V(w/wo pelvis)* XR/XR hip LT min 2V(w/wo pelvis)*: S/P total left hip arthroplasty My1login Other XR hip LT min 2V(w/wo pelvis)*AP PELVIS AND LEFT HIP - 2 views:My1login Other XR hip LT min 2V(w/wo pelvis)*CLINICAL HISTORY: Follow-up left hip replacementDramaFever Other XR hip LT min 2V(w/wo pelvis)*COMPARISON: 03/17/2023 My1login Other XR hip LT min 2V(w/wo pelvis)*AP view of the pelvis and crosstable lateral view of the left hip were obtained. A left hipDramaFever Other XR hip LT min 2V(w/wo pelvis)*prosthesis is again visualized. The hardware appears intact and unchanged from the prior. There is My1login Other XR hip LT min 2V(w/wo pelvis)*no developing fracture or dislocation. There is minor sclerosis at the SI joints. There are Curbside Other XR hip LT min 2V(w/wo pelvis)*significant soft tissue abnormalities.My1login Other XR hip LT min 2V(w/wo pelvis)* XR/XR hip LT min 2V(w/wo pelvis)*My1login Other XR hip LT min 2V(w/wo pelvis)*IMPRESSION:My1login Other XR hip LT min 2V(w/wo pelvis)*STABLE LEFT HIP REPLACEMENTSeattle Introhive Other XR hip LT min 2V(w/wo pelvis)*Impression dictated by: Radha Godinez M.D.04/20/2023 11:47 [facility] Introhive Other XR hip LT min 2V(w/wo pelvis)*Dictation Location: [id number] Introhive Other XR hip LT min 2V(w/wo pelvis)*Transcribed By: SAAD 04/20/23 [facility] CenterMy1[facility] Other XR hip LT min 2V(w/wo pelvis)*Dictated By: Radha Godinez MD 04/20/23 [facility] HospitalMy[facility] Other XR hip LT min 2V(w/wo pelvis)*Signed By:My1login Other XR hip LT min 2V(w/wo pelvis)*04/20/23 [facility] CenterMy1login Other Glucose Glucometer (BldC) [Mass/Vol]Ordered By: Edison Veronica on 72-94-9742Yfbqtlw [Mass/Vol]179 mg/dLDoctors HospitalComment on above:Random Glucose Reference Range is dependent on time and content of last meal. Glucose of more than 200 mg/dL in a nonstressed, ambulatory subject supports the diagnosis of Diabetes Mellitus.Automated erythrocytes count in urine sediment (number/area)Ordered By: Edison Veronica on 05-09-5746SQI Auto (Urine sed) [#/Area]None seen [HPF]0-4FCincinnati Children's Hospital Medical CenterAutomated leukocytes count in urine sediment (number/area)Ordered By: Edison Veronica on 87-83-8759NYV Auto (Urine sed) [#/Area]3-4 [HPF]0-4 Doctors HospitalBasophils Auto (Bld) [#/Vol]Ordered By: Edison Veronica on 33-63-0211Xihomovxr (Bld) [#/Vol]0.0 10*3/uL0.0-0.2FCincinnati Children's Hospital Medical CenterBasophils/100 WBC Auto (Bld)Ordered By: Edison Veronica on 14-48-9215Bnpidqebg/100 WBC (Bld)1.0 %.[facility] Bilirubin Test strip Ql (U)Ordered By: Edison Veronica on 10-10-2738Hgnmqfrrg Ql (U)NegativeNegativeDoctors HospitalCalcium [Mass/volume] in Serum or PlasmaOrdered By: Edison Veronica on 15-60-0637Tyeitzm [Mass/Vol]9.2 mg/dL8.6-10.3FCincinnati Children's Hospital Medical CenterCarbon dioxide, total [Moles/volume] in Serum or PlasmaOrdered By: Edison Veronica on 26-26-7287AE0 [Moles/Vol]29.0 mmol/L21.0-31.0Doctors HospitalChloride [Moles/volume] in Serum or PlasmaOrdered By: Edison Veronica on 01-20-2023 Chloride [Moles/Vol]103 mmol/J61-130CqoqexzggDoctors HospitalColor Auto (U)Ordered By: Edison Veronica on 96-19-0399Yddzd (U)YellowYellowDoctors HospitalCreatinine [Mass/volume] in Serum or PlasmaOrdered By: Edison Veronica on 28-41-0813Vydaohhkyb [Mass/Vol]0.67 mg/dL0.60-1.20Doctors HospitalEosinophils Auto (Bld) [#/Vol]Ordered By: Edison Veronica on 10-63-3672Bverakovqim (Bld) [#/Vol]0.0 10*3/uL0.0-0.45Doctors HospitalEosinophils/100 WBC Auto (Bld)Ordered By: Edison Veronica on 80-53-2780Gpxklnothez/100 WBC (Bld)0.0 %.[facility] Erythrocyte distribution width Auto (RBC) [Ratio]Ordered By: Edison Veronica on 17-53-1227Snsxisqwlgt distribution width (RBC) [Ratio]14.0 %11.9-15.3FCincinnati Children's Hospital Medical CenterFructosamine [Moles/volume] in Serum or PlasmaOrdered By: Edison Veronica on 90-34-1879Wfzmlriodrbz [Moles/Vol]196 umol/L0-285Doctors HospitalComment on above:Published reference interval for apparently healthysubjects between age 20 and 60 is 205 - 285 umol/L and in apoorly controlled diabetic population is 228 - 563 umol/Lwith a mean of 396 umol/L.Performed at: - LabRichard Ville [id number] Director: Laen Rivera PhD, Phone: [phone] [Mass/volume] in Serum or PlasmaOrdered By: Edison Veronica on 67-60-8709Rifxbqm [Mass/Vol]149 mg/zN99-517BqirkgkycDoctors HospitalComment on above:ADA recommended reference rangeRandom Glucose Reference Range is dependent on time and content of last meal. Glucose of more than 200 mg/dL in a nonstressed, ambulatory subject supports the diagnosisof Diabetes Mellitus.Hematocrit Auto (Bld) [Volume fraction]Ordered By: Edison Veronica on 38-14-6750Rnwhfsowtr (Bld) [Volume fraction]36.6 %34.0-46.4FCincinnati Children's Hospital Medical CenterHemoglobin [Mass/volume] in BloodOrdered By: Edison Veronica on 69-28-9862Mmggsweofh (Bld) [Mass/Vol]12.3 g/dL11.8-15.4FCincinnati Children's Hospital Medical CenterKetones Auto test strip (U) [Mass/Vol]Ordered By: Edison Veronica on 68-99-8734Velkbbe (U) [Mass/Vol]NegativeNegativeDoctors HospitalLaboratory - UrinalysisOrdered By: Edison Veronica on 10-15-7748Vsgkzwy casts LM Ql (Urine sed)None seen [LPF]0-8Doctors HospitalLeukocytes [#/volume] corrected for nucleated erythrocytes in Blood by Automated counOrdered By: Edison Veronica on 53-55-8261FZY corrected for nucl RBC Auto (Bld) [#/Vol]3.5 10*3/uL3.8-11.6FCincinnati Children's Hospital Medical CenterLymphocytes Auto (Bld) [#/Vol] Ordered By: Edison Veronica on 18-67-6727Secpuyvpdyy (Bld) [#/Vol]1.3 10*3/uL 1.00-4.8Doctors HospitalLymphocytes/100 WBC Auto (Bld)Ordered By: Edison Veronica on 60-29-4099Mlhpqccdbgl/100 WBC (Bld)36.7 %.[facility] Auto (RBC) [Entitic mass]Ordered By: Edison Veronica on 16-58-3317PFD (RBC) [Entitic mass]27.3 pg24.7-34.3FSouthwest General Health CenterHC Auto (RBC) [Mass/Vol]Ordered By: Edison Veronica on 93-63-0499JMSE (RBC) [Mass/Vol]33.5 g/dL32.0-35.0Doctors HospitalMCV Auto (RBC) [Entitic vol]Ordered By: Edison Veronica on 33-00-7417ICD (RBC) [Entitic vol]81.4 hS32-410ZwqwtzddtDoctors HospitalMonocytes Auto (Bld) [#/Vol] Ordered By: Edison Veronica on 01-48-9470Hsguiljbi (Bld) [#/Vol]0.3 10*3/uL 0.0-0.8Doctors HospitalMonocytes/100 WBC Auto (Bld)Ordered By: Edison Veronica on 26-73-0293Fapwmhqje/100 WBC (Bld)7.2 %.Doctors HospitalNeutrophils Auto (Bld) [#/Vol]Ordered By: Edison Veronica on 04-41-2593Lkkgkghbokv (Bld) [#/Vol]2.0 10*3/uL1.8-7.7FCincinnati Children's Hospital Medical CenterNeutrophils/100 WBC Auto (Bld)Ordered By: Edison Veronica on 01-20-2023 Neutrophils/100 WBC (Bld)55.1 %.Doctors HospitalNitrite Test strip Ql (U)Ordered By: Edison Veronica on 32-87-1404Ryufduq Ql (U)Negative NegativeDoctors HospitalNo Panel InformationOrdered By: Edison Veronica on 13-32-4433Gpqchrppn GFR (CKD-EPI)> 60.0 mL/MinDoctors HospitalPharmacy Creatinine Clearance (ChemN/AFCincinnati Children's Hospital Medical CenterNucleated erythrocytes [Presence] in Blood by Automated countOrdered By: Edison Veronica on 92-40-4846Goyxtkacc RBC Auto Ql (Bld)0.1 /100{WBC}0-0.5 Doctors HospitalPlatelet mean volume Auto (Bld) [Entitic vol] Ordered By: Edison Veronica on 34-07-6897Ejyqjliz mean volume (Bld) [Entitic vol]8.2 fL6.3-10.7FCincinnati Children's Hospital Medical CenterPlatelets Auto (Bld) [#/Vol] Ordered By: Edison Veronica on 71-78-4434Yczafzhpu (Bld) [#/Vol]248 10*3/uL 150-450Doctors HospitalPotassium [Moles/volume] in Serum or PlasmaOrdered By: Edison Veronica on 06-46-2630Qoveklykc [Moles/Vol]4.3 mmol/L 3.5-5.1FCincinnati Children's Hospital Medical CenterProtein Auto test strip (U) [Mass/Vol] Ordered By: Edison Veronica on 46-77-4510Shivxel (U) [Mass/Vol]NegativeNegative Doctors HospitalRBC Auto (Bld) [#/Vol]Ordered By: Edison Veronica on 33-70-0118EGC (Bld) [#/Vol]4.50 10*6/uL3.60-5.00McKitrick Hospitalerum or plasma anion gap determinationOrdered By: Edison Veronica on 71-02-2128Ujozp gap [Moles/Vol]11.3 mmol/L6.0-15.0McKitrick Hospitalodium [Moles/volume] in Serum or PlasmaOrdered By: Edison Veronica on 71-60-9638Rjnpdp [Moles/Vol]139 mmol/Y268-651MuwlpcsseDoctors Hospital Specific gravity Auto test strip (U) [Rel density]Ordered By: Edison Veronica on 08-77-7757Lfhvwhrc gravity (U) [Rel density]1.0081.001-1.030McKitrick Hospitalquamous epithelial cells detection in urine sediment by light microscopyOrdered By: Edison Veronica on 18-37-5662Vkpyqwtecu cells.squamous LM Ql (Urine sed)None seen [HPF]0-2FCincinnati Children's Hospital Medical CenterUrea nitrogen [Mass/volume] in Serum or PlasmaOrdered By: Edison Veronica on 69-12-5489Wrqn nitrogen [Mass/Vol]16 mg/dL7-25Doctors HospitalUrine bacteria detection by automated methodOrdered By: Edison Veronica on 50-40-1894Fukpjoto Auto Ql (U)None seenNone SeenDoctors HospitalUrine clarity by refractometry automatedOrdered By: Edison Veronica on 07-11-7234Kqagrxk Refractometry automated (U)ClearCleOhioHealth Shelby HospitalUrine glucose measurement by automated test strip (mass/volume)Ordered By: Edison Veronica on 27-41-7815Lmhkgjt Auto test strip (U) [Mass/Vol]Normal mg/dLNormal Doctors HospitalUrine hemoglobin detection by automated test stripOrdered By: Edison Veronica on 18-72-6240Iqelmuxvtx Auto test strip Ql (U) NegativeNegativeDoctors HospitalUrine leukocyte esterase detection by automated test stripOrdered By: Edison Veronica on 01-20-2023 Leukocyte esterase Auto test strip Ql (U)2+NegativeDoctors HospitalUrobilinogen Auto test strip (U) [Mass/Vol]Ordered By: Edison Veronica on 42-44-4667Etxdjqllfztl (U) [Mass/Vol]Normal mg/dLNormalDoctors HospitalWBC Auto (Bld) [#/Vol]Ordered By: Edison Veronica on 44-23-8018SCL (Bld) [#/Vol]3.5 10*3/uL3.8-11.6FCincinnati Children's Hospital Medical CenterpH Auto test strip (U)Ordered By: Edison Veronica on 72-73-5617tS (U)6.0 [pH]5.0-9.0Doctors HospitalAlbumin [Mass/volume] in Serum or Plasma by Bromocresol green (BCG) dye binding methoOrdered By: Edison Veronica on 71-40-9040Btoldcz BCG dye [Mass/Vol]4.5 g/dL3.5-5.7FCincinnati Children's Hospital Medical CenterCotinine [Mass/volume] in Serum or PlasmaOrdered By: Edison Veronica on 12-24-2022 Cotinine [Mass/Vol]<1.0 ng/mL.Doctors HospitalComment on above: This test was developed and its performance characteristicsdetermined by LabAD[facility]. It has not been cleared orapproved by the Food and Drug Administration.Cotinine levels greater than 20.0 are consistent with theuse of tobacco or tobacco cessation products.Performed at: [address] [id number] Director: Antonio Dumont MD, Phone: [phone] mean value [Mass/volume] in Blood Estimated from glycated hemoglobinOrdered By: Edison Veronica on 61-06-9951Vycmgpt glucose Estimated from glycated hemoglobin (Bld) [Mass/Vol]111 mg/dLDoctors HospitalHemoglobin A1c percentageOrdered By: Edison Veronica on 70-94-1800HuF2k (Bld) [Mass fraction]5.5 %4.3-5.6FCincinnati Children's Hospital Medical CenterComment on above:Increased risk for diabetes: 5.7 - 6.4diabetes: >6.4glycemic control for adults with diabetes: <7.0Hemoglobin [Mass/volume] in BloodOrdered By: Edison Veronica on 41-63-5374Kqvrvvwtwx (Bld) [Mass/Vol]13.0 g/dL11.8-15.4FCincinnati Children's Hospital Medical CenterNicotine [Mass/volume] in Serum or PlasmaOrdered By: Edison Veronica on 53-96-8094Ctwcdlhu [Mass/Vol]<1.0 ng/mL.Doctors HospitalComment on above:This test was developed and its performance characteristicsdetermined by [employer]. It has not been cleared orapproved by the Food and Drug Administration.Nicotine levels greater than 2.0 are consistent with theuse of tobacco or tobacco cessation products.Vitamin D+Metabolites [Mass/volume] in Serum or PlasmaOrdered By: Edison Veronica on 91-09-0304Ggnympo D+Metabolites [Mass/Vol]50.9 ng/mI76-306GjcxxmrnrDoctors Hospital Comment on above:VITAMIN D STATUS 25(OH)VITAMIN D RANGE (ng/mL) Deficient <20 Insufficient 20 to <63Sxmklnwkln73 to 100Reference: Casandra KOROMA,Maddi ROBIN, Adam WHITE, et al. Evaluation,treatment, and prevention of vitamin D deficiency; an Endocrine Society clinical practice guideline. JCEM. 2010; 96 (7):1911-30.Wound methicillin resistant Staphylococcus aureus (MRSA) culture Ordered By: Edison Veronica on 79-91-8014KZXP isol Org specific cx Ql (Unsp spec)No MRSA Isolated 2 [facility] HospitalMR[facility] Org specific cx Ql (Unsp spec)No MRSA Isolated 2 [facility] HospitalMG MAMM SCREEN 3D ADALBERTO CADon 61-32-5284HP MAMM SCREEN 3D ADALBERTO CADPatient: ANA CRUZ Exam Date: 09/09/2022 : 1970 Gender:F Ordering : DR TJ GARZA . Admission #: [id number] Family : Order #: [id number] CLICK HERE TO VIEW EXAM RADIOLOGY REPORT [...] aml cancer at age 24. LOCATION: [facility] BREAST COMPOSITION: Heterogeneously dense,which may obscure [...] by: Ale Ponce MD on 09/09/2022 at 12:06NoMemorial Health [facility] AUTO DIFFon 30-33-7146OPTL #0.0 103/ulNormal0.0-0.1[facility] Hospital ToledoComment on above:Performed By: #### CBC #### [facility] [address] [place] [address] Dr. Juliana BrooksBasophils/100 WBC (Bld)0.9 %Normal0.2-2.0[facility] Comment on above:Performed By: #### CBC #### [facility] [address] [place] [address] Dr. Juliana Tang #0.0 103/ulNormal0.0-0.7The [facility] HospitalComment on above: Performed By: #### CBC #### [facility] [address] [place] [address] Dr. Juliana Romoosinophils/100 WBC (Bld)0.4 %Critically low0.9-7.0The [facility] HospitalComment on above:Performed By: #### CBC #### [facility] [address] [place] [address] Dr. Juliana Romorythrocyte distribution width (RBC) [Ratio]16.3 %Critically high 11.0-15.0The [facility] HospitalComment on above:Performed By: #### CBC #### [facility] [address] [place] [address] Dr. Juliana BrooksHematocrit (Bld) [Volume fraction]37.3 %Bervqz38.0-48.0The [facility] HospitalComment on above:Performed By: #### CBC #### [facility] [address] [place] [address] Dr. Juliana BrooksHemoglobin (Bld) [Mass/Vol]11.1 g/dLCritically low12.0-16.0The [facility] HospitalComment on above:Performed By: #### CBC #### [facility] [address] [place] [address] Dr. Juliana Hernandez #0.01 10e3/ulNormal0.00-0.03The [facility] HospitalComment on above:Performed By: #### CBC #### [facility] [address] [place] [address] Dr. Juliana Hernandez %0.2 %Normal0.0-0.5The [facility] HospitalComselect specialty hospital-[facility] on above: Performed By: #### CBC #### [facility] [address] [place] [address] Dr. Juliana PatelH #1.6 103/ulNormal1.2-3.8The [facility] HospitalComment on above:Performed By: #### CBC #### [facility] [address] [place] [address] Dr. Juliana Phillipmphocytes/100 WBC (Bld)33.0 %Rukjms20.5-60.0The [facility] on above:Performed By: #### CBC #### [facility] [address] [place] [address] Dr. Juliana ClarkUAL DIFF REQNONormalThe [facility] HospitalComment on above: Performed By: #### CBC #### [facility] [address] [address] [address] Juliana Felix (RBC) [Entitic mass]23.2 pgCritically low26.7-34.0The [facility] HospitalComment on above:Performed By: #### CBC #### [facility] [address] [place] [address] Dr. Juliana Felix (RBC) [Mass/Vol]29.8 g/dLCritically low29.9-35.2The Lucien HospitalComment on above:Performed By: #### CBC #### [facility] [address] [place] [address] Dr. Juliana Felix (RBC) [Entitic vol]78.0 fLCritically low81.0-99.0The [facility] HospitalComment on above:Performed By: #### CBC #### [facility] [address] [place] [address] Dr. Juliana Palacios #0.5 103/ulNormal0.3-0.8The [facility] HospitalComment on above:Performed By: #### CBC #### [facility] [address] [place] [address] Dr. Juliana Catherineocytes/100 WBC (Bld)10.0 %Normal1.7-12.0The [facility] Comment on above:Performed By: #### CBC #### [facility] [address] [place] [address] Dr. Juliana Reynolds #2.6 103/ulNormal1.4-6.5The [facility] HospitalComment on above:Performed By: #### CBC #### [facility] [address] [place] [address] Dr. Juliana Pikeutrophils/100 WBC (Bld)55.5 %Ueibzk84.0-75.0The [facility] HospitalComment on above:Performed By: #### CBC #### [facility] [address] [place] [address] Dr. Juliana Currylet mean volume (Bld) [Entitic vol]10.2 fLNormal9.5-13.5The [facility] HospitalComment on above:Performed By: #### CBC #### [facility] [address] [place] [address] Dr. Juliana BrooksPLT320 103/olFdgjih682-385Sur [facility] HospitalComment on above: Performed By: #### CBC #### [facility] [address] [place] [address] Dr. Juliana BrooksRBC4.78 106/ulNormal4.20-5.40The [facility] HospitalComment on above:Performed By: #### CBC #### [facility] [address] [place] [address] Dr. Juliana BrooksWBC4.7 103/ulNormal4.0-11.0The [facility] HospitalComment on above: Performed By: #### CBC #### [facility] [address] [place] [address] Dr. Juliana Willard THYROXINE INDEX T7on 63-46-4718BDJ8.77Zqvxvb3.30-4.50The [facility] HospitalComselect specialty hospital-[facility] on above:Performed By: #### T7, TSH, CMP, LIPID #### [facility] [address] [place] [address] Dr. Juliana BrooksT3U36.0 %Qstwwh29.0-39.0The [facility] Rehabilitation Hospitalment on above: Performed By: #### T7, TSH, CMP, LIPID #### [facility] [address] [place] [address] Dr. Juliana BrooksT4 [Mass/Vol]9.00 ug/dLNormal4.80-13.90The [facility] Comment on above:Performed By: #### T7, TSH, CMP, LIPID #### [facility] [address] [place] [address] Dr. Juliana BrooksGLYCOHEMOGLOBIN A1Con 42-95-7730KSO RECOMMENDATIONSEE BELOWNormal The [facility] HospitalComselect specialty hospital-[facility] on above:Result Comment: ADA RECOMMENDED LIMIT 4.0 - 6.0 ADA THERAPEUTIC TARGET < 7.0 ACTION SUGGESTED > 7.0Performed By: #### A1C #### [facility] [address] [address] [address] Juliana BrooksGlucose [Mass/Vol]137 mg/dLBlanchard Valley Health System Blanchard Valley HospitalComment on above:Performed By: #### A1C #### [facility] [address] [place] [address] Dr. Juliana BrooksHbA1c (Bld) [Mass fraction]6.4 %Critically high4.5-6.2The [facility] HospitalComment on above:Performed By: #### A1C #### [facility] [address] [place] [address] Dr. Juliana Pickering 47-21-1485Util [Mass/Vol]54.0 ug/wMGgokff86.0-170.0The [facility] HospitalComment on above:Performed By: #### IRON #### [facility] [address] [place] [address] Dr. Juliana GalanID PROFILEon 79-42-2753LEUQ-HDL RATIO NORMSEE [facility] CenterComment on above:Result Comment: 3.3 - 4.4 LOW RISK 4.4 - 7.1 AVERAGE RISK 7.1 - 11.0 MODERATE RISK >11.0 HIGH RISKPerformed By: #### T7, TSH, CMP, LIPID #### [facility] [address] [place] [address] Dr. Juliana BrooksCholesterol [Mass/Vol]159 mg/dLNormal<=200The [facility] Comment on above:Performed By: #### T7, TSH, CMP, LIPID #### [facility] [address] [place] [address] Dr. Juliana BrooksCholesterol in HDL [Mass/Vol]74 mg/dLCritically eoqx25-94Ury [facility] HospitalComment on above:Performed By: #### T7, TSH, CMP, LIPID #### [facility] [address] [place] [address] Dr. Juliana BrooksCholesterol in LDL [Mass/Vol]74.4 mg/dLBlanchard Valley Health System Blanchard Valley HospitalComment on above:Performed By: #### T7, TSH, CMP, LIPID #### [facility] [address] [address] [address] Juliana BrooksCholesterol.total/Cholesterol in HDL [Mass ratio]2.1 {ratio} NormalOur Lady of Mercy [facility] - [facility] on above:Performed By: #### T7, TSH, CMP, LIPID #### [facility] [address] [address] [address] Juliana Levi NORMAL> or = 60 mg/dl - LOW CARDIOVASCULAR RISK <40 mg/dl - HIGH CARDIOVASCULAR RISKBlanchard Valley Health System Blanchard Valley HospitalComment on above:Performed By: #### T7, TSH, CMP, LIPID #### [facility] [address] [address] [address] Juliana BrooksLDL CALC NORMALSEE BELOWBlanchard Valley Health System Blanchard Valley HospitalComselect specialty hospital-[facility] on above:Result Comment: <100 mg/dl OPTIMAL 100 - 129 mg/dl NEAR OR ABOVE OPTIMAL 130 - 159 mg/dl BORDERLINE HIGH 160 - 189 mg/dl HIGH >190 mg/dl VERY HIGH Performed By: #### T7, TSH, CMP, LIPID #### [facility] [address] [address] [address] Juliana BrooksTriglyceride [Mass/Vol]53 mg/dLNormal<=150The [facility] Comment on above:Performed By: #### T7, TSH, CMP, LIPID #### [facility] [address] [address] [address] Juliana ElderLDL CALC10.6 mg/dLNoKettering Health – Soin Medical CenterComselect specialty hospital-[facility] on above: Performed By: #### T7, TSH, CMP, LIPID #### [facility] [address] [address] [address] Juliana BrooksPROF 14(COMP METB)on 46-44-1674Xyfafvr [Mass/Vol]3.6 g/dLNormal 3.4-5.0The [facility] on above:Performed By: #### T7, TSH, CMP, LIPID #### [facility] [address] [address] [address] Juliana BrooksAlbumin/Globulin [Mass ratio]1.1 {ratio}NormalThe Lucien HospitalComment on above:Performed By: #### T7, TSH, CMP, LIPID #### [facility] [address] [address] [address] Juliana Campoverde [Catalytic activity/Vol]107 U/GGjtobx21-561Uvb [facility] HospitalComment on above:Performed By: #### T7, TSH, CMP, LIPID #### [facility] [address] [place] [address] Dr. Juliana Mcfadden [Catalytic activity/Vol]26 U/TYflrvd97-30Wvc [facility] HospitalComment on above:Performed By: #### T7, TSH, CMP, LIPID #### [facility] [address] [place] [address] Dr. Juliana Cline gap [Moles/Vol]11.1 mmol/LNormalThe [facility] Comment on above:Performed By: #### T7, TSH, CMP, LIPID #### [facility] [address] [place] [address] Dr. Juliana Hahn [Catalytic activity/Vol]19 U/DCnxfxv47-10Eda [facility] HospitalComment on above:Performed By: #### T7, TSH, CMP, LIPID #### [facility] [address] [place] [address] Dr. Juliana BrooksBilirubin [Mass/Vol]0.3 mg/dLNormal0.2-1.0[facility] Comment on above:Performed By: #### T7, TSH, CMP, LIPID #### [facility] [address] [place] [address] Dr. Juliana BrooksCalcium [Mass/Vol]9.2 mg/dLNormal8.5-10.1[facility] Comment on above:Performed By: #### T7, TSH, CMP, LIPID #### [facility] [address] [place] [address] Dr. Juliana BrooksChloride [Moles/Vol]106 mmol/WAoldxy60-133WhuRegency Hospital Toledo Comment on above:Performed By: #### T7, TSH, CMP, LIPID #### [facility] [address] [address] [address] Juliana BrooksCO2 [Moles/Vol]28.3 mmol/GEsocga43.0-32.0The [facility] Comment on above:Performed By: #### T7, TSH, CMP, LIPID #### [facility] [address] [place] [address] Dr. Juliana BrooksCreatinine [Mass/Vol]0.60 mg/dLNormal0.55-1.02The [facility] HospitalComment on above:Performed By: #### T7, TSH, CMP, LIPID #### [facility] [address] [place] [address] Dr. Juliana RomoGFR-AF MALAGASY>60Normal>=60The [facility] HospitalComment on above:Performed By: #### T7, TSH, CMP, LIPID #### [facility] [address] [place] [address] Dr. Juliana RomoGFR-NON AF MALAGASY>60Normal>=60The [facility] HospitalComment on above:Performed By: #### T7, TSH, CMP, LIPID #### [facility] [address] [place] [address] Dr. Juliana BrooksGlobulin (S) [Mass/Vol]3.4 g/dLNormalThe [facility] HospitalComment on above:Performed By: #### T7, TSH, CMP, LIPID #### [facility] [address] [place] [address] Dr. Juliana BrooksGlucose [Mass/Vol]104 mg/wVVsooop87-299Jtc [facility] Comment on above:Performed By: #### T7, TSH, CMP, LIPID #### [facility] [address] [place] [address] Dr. Juliana BrooksPotassium [Moles/Vol]4.4 mmol/LNormal3.5-5.1The [facility] Comment on above:Performed By: #### T7, TSH, CMP, LIPID #### [facility] [address] [place] [address] Dr. Juliana BrooksProtein [Mass/Vol]7.0 g/dLNormal6.4-8.2The [facility] Comment on above:Performed By: #### T7, TSH, CMP, LIPID #### [facility] [address] [address] [address] Juliana BrooksSodium [Moles/Vol]141 mmol/DEqpuqy375-088Pnc [facility] Comment on above:Performed By: #### T7, TSH, CMP, LIPID #### [facility] [address] [address] [address] Juliana Angelo nitrogen [Mass/Vol]11.0 mg/dLNormal7.0-18.0The [facility] HospitalComment on above:Performed By: #### T7, TSH, CMP, LIPID #### [facility] [address] [address] [address] Juliana Angelo nitrogen/Creatinine [Mass ratio]18.3 mg/mgNormalThe [facility] HospitalComment on above:Performed By: #### T7, TSH, CMP, LIPID #### [facility] [address] [address] [address] Juliana Geiger 90-02-7364PCN Qnm[IU]/LCritically low0.358-3.740The [facility] HospitalComment on above:Performed By: #### T7, TSH, CMP, LIPID #### [facility] [address] [place] [address] Dr. Juliana Hu [facility] CONon 84-56-3234PEH [facility] CONEXAMINATION: MRI [facility] CON HISTORY: Lumbar radiculopathy ; chronic lumbar [...] Electronically authenticated by: IRENE AGUILERA Date: 2021-12-24 16:08[facility] HospitalXR LSPINE MIN 4 VIEWSon 46-27-0356BX LSPINE MIN 4 VIEWS EXAMINATION: XR LSPINE MIN 4 VIEWS HISTORY: Lumbar radiculopathy COMPARISON: No relevant comparison available. FINDINGS: BONES: Normal alignment with no acute fracture or spondylolisthesis. Mild degenerative spondylosis. Mild facet osteoarthropathy DISC SPACES: Normal. No significant disc height narrowing, subluxation, or endplate abnormality. PARASPINOUS: Negative. No paraspinous abnormality is seen. OTHER: Negative. IMPRESSION: Mild degenerative changes Electronically authenticated by: ALE PONCE Date: 2021-11-26 18:41[facility] HospitalAmbulatory Visit Summaryon 36-35-2455Mvbqhrevqz Visit Summary ANA CRUZ :1970 Visit Date:07/24/2021 Ambulatory Visit Instructions Your Diagnosis Reducible right inguinal hernia Incisional hernia Your Care Team Attending Physician - KHANG BARTH, Jerry Randolph Primary Care Physician - Tj Garza MD This Is Your Medications List [...] spine Reducible right inguinal hernia Sleep apnea [facility]General [facility] Office/Clinic Noteon 54-45-5690Ixasepg Surgery Office/Clinic NoteChief Complaint post operative follow up HPI Staff [...] without erythema or drainage, no ecchymoses; no seromaor recurrent hernia. Assessment/Plan 1. Reducible right inguinal [...] virus vaccine, inactivated - Not Given Patient RefusesCity HospitalComment on above:Result Comment: Electronically Signed By: KHANG BARTH, Jerry Randolph\.br\Date and Time Signed: 07/24/21 14:01 EDTAmbulatory Visit Summaryon 07-02-5549Rwflfgggbv Visit Summary ANA CRUZ :1970 Visit Date:07/10/2021 Ambulatory Visit Instructions Your Diagnosis Reducible right inguinal hernia Incisional hernia Your Care Team Attending Physician - Jerry QUIÑONEZ MD Primary Care Physician - Tj Garza MD This Is Your Medications List [...] Jerry QUIÑONEZ MD Where: General Surgery Khang/Jens [facility] General Surgery Office/Clinic Noteon 45-52-0389Abibcjh Surgery Office/Clinic NoteChief Complaint post operative follow up HPI Staff [...] virus vaccine, inactivated - Not Given Patient RefusesCity HospitalComment on above:Result Comment: Electronically Signed By: KHANG BARTH, Jerry Warren\Date and Time Signed: 07/10/21 14:23 EDTOperative Report on 24-27-2873Fixpkqleg [id number]#1.00CD:[address] [place], [place] [address]Lab Reportson 95-67-0128Mqs Reports [id number]#1.00CD:[address] [place], [place] [address]ECG 12-Leadon 96-29-5722SXJ 12-Lead [id number]#1.00CD:[address] [place], [place] [address]Pre-Certification Formon 26-26-1389Gbq-Certification Form [id number]#1.00CD:[address] [place], [place] [address]RAD - CT Reporton 86-56-5149KFA - CT Report [id number]#1.00CD:127City HospitalConsent for Procedure/Surgeryon 50-85-7031Ozcdkxi for Procedure/Surgery [id number]#1.00CD:127City HospitalAmbulatory Visit Summaryon 54-06-9588Cghfnfkqdn Visit Summary ANA CRUZ :1970 Visit Date:06/10/2021 Ambulatory Visit Instructions Your Care Team Attending Physician - KHANG BARTH, Jerry Randolph Primary Care Physician - Yaya BARTH, Tj Referring Physician - Tj Garza MD This Is Your Medications List [...] Hyperlipidemia Radiculopathy of cervical spine Sleep apnea NormalFisher [facility] CampusPhysician Referralon 06-05-2021 Physician [id number]#1.00CD:127Normal Alonzo [facility] Mid[facility] CampusFLUORO FOR SURGICAL PROCEDURESOrdered By: Mejia Griffin on 21-49-1611Kyz, Chpo Incoming Radiant Results From [employer] - 11/18/2020 2:23 PM EDT EXAMINATION: FLUORO FOR SURGICAL PROCEDURES CLINICAL HISTORY: R52 Pain ICD10 COMPARISONS: None available. FINDINGS: Fluoroscopic assistance was provided during ACDF, C5-6 and C6-7 The total radiation time is 31.9 seconds, radiation dose is 3.62mGy. IMPRESSION: Intraprocedural fluoroscopic support has been provided. Please refer to the procedure report.[employer] Work Phone: [employer] Work Phone: surgical Specimenon 67-54-2678Fsfiwihv SpecimenMercy Health St. [facility] Services [address] [place], [place] [id number] FINAL SURGICAL PATHOLOGY REPORT Patient Name: ANA CRUZ Accession No: [id number] Age Sex: 1970 Location: [facility] [id number] Account No: [id number] Collected: 11/18/2020 Med Rec No: [id number] Received: 11/18/2020 Attend Phys: MEJIA GRIFFIN Completed: [...] in three cassettes following decalcification. LUAN CPT: 20065 X1 26328 X1 JERAMIE ERVIN M.D. 11/20/2020 Electronically signed out by Page 1 of 1Invalid Interpretation [facility] Hospital of LittletonComment on above:Performed By: #### SENHTIL #### [facility] [address] [place] [address] MMNIJ-19, PCRon 05-55-7029LOPB-CoV-2 (COVID-19) RNA AISHA+probe Ql (Unsp spec)Not detectedNormalNot Saint [facility] HospitalComment on above:Result Comment: Testing was performed using iWelcome SARS-CoV-2 Assay. Negative results do not preclude [...] oropharyngeal and mid-turbinate specimens. Patient Fact Sheet: https://www.fda.gov/media/260786/download Provider Fact Sheet: https://www.fda.gov/media/613108/download FDA Specimen Types Link: https://www.fda.gov/medical-devices/ sfupdjxjblg-vlhal-96-phb-nhzulyy-rgfksqo/alpq-hbdwwvm-ojwu-cov-2 Methodology: RT-PCRPerformed By: #### COVB #### [facility] [address] [place] [id number] CBC With Platelet No Differentialon 33-89-8476Kkjoyzkgspm distribution width (RBC) [Ratio]15.8 %Critically high11.5-14.5[facility] HospitalComment on above:Performed By: #### CBCND #### [facility] [address] [place] [address] Sielknnvtl (Bld) [Volume fraction]37.5 %Tscdzo46.0-47.0[facility] HospitalComment on above:Performed By: #### CBCND #### [facility] [address] [place] [address] Ryksvclqyh (Bld) [Mass/Vol]12.1 g/pWEekxra77.0-16.0[facility] HospitalComment on above:Performed By: #### CBCND #### [facility] [address] [place] [address] CAB (RBC) [Entitic mass]26.2 pgLow27.0-31.3MSt. Vincent General Hospital DistrictComment on above:Performed By: #### CBCND #### [facility] [address] [place] [address] GOBH58.3 %Low33.0-37.0[facility] HospitalComment on above: Performed By: #### CBCND #### [facility] [address] [place] [address] ZPR (RBC) [Entitic vol]81.3 fLLow82.0-100.0[facility] HospitalComment on above:Performed By: #### CBCND #### [facility] [address] [place] [address] Hwoxcyixt (Bld) [#/Vol]301 10*3/wTJedbmo514-940PngupWest Springs HospitalComment on above:Performed By: #### CBCND #### [facility] [address] [place] [address] WYD (Bld) [#/Vol]4.61 10*6/uLNormal4.20-5.40[facility] HospitalComment on above:Performed By: #### CBCND #### [facility] [address] [place] [address] AST (Bld) [#/Vol]3.7 10*3/uLLow4.8-10.8[facility] Comment on above:Performed By: #### CBCND #### [facility] [address] [place] [address] Fyympte Thromboplastin Timeon 83-62-0804dBJO Coag (Bld) [Time]28.0 s Mwjkdk02.4-36.8[facility] HospitalComment on above:Result Comment: Effective 02/20/2020: Heparin Therapeutic Range: 64.0 ? 98.0 seconds.Performed By: #### PTT #### [facility] [address] [place] [address] Mnexipgpkyt Timeon 76-44-7156VIL Coag (PPP) [Relative time]1.0 {INR} NormalWest Springs HospitalComment on above:Performed By: #### PT #### [facility] [address] [place] [address] KG Coag (PPP) [Time]13.3 mKkiams70.3-14.9[facility] HospitalComment on above:Performed By: #### PT #### [facility] [address] [place] [address] Xujq and Screen Capture 3 scrn cellon 88-91-1955Mflv and Screen Capture 3 scrn cellPATIENT: ROOT ANA LOC: REESE BILL# : [id number] : 1970 SEX: F ORDERED BY: TIM CASTILLO ORDERED : 11/07/2020 13:32 COLLECTED: 11/07/2020 13:32 ORDER : [id number] RECEIVED : 11/07/2020 19:33 TEST NAME RESULT UNITS RANGES ABN FL ST ABORH Capture O POS F Antibody 3 Cell Scrn Captu NEG F [facility] CenterComment on above:Performed By: #### TS3C #### [facility] [address] [place] [address] MRI CERVICAL SPINE WO CONTRASTOrdered By: Mejia Griffin on 77-99-6632Mfwrj is no acute fracture or subluxation. Distal esophageal body height. The cord is normal in course and caliber without signal abnormalities. There is multilevel spondylosis including intervertebral disc space narrowing at each level. There is a to moderate narrowing of the central canal and a multifactorial basis of 30 degrees of facet arthrosis and neural foraminal narrowing as described in d etail at each level above. There is inhomogeneous signal of the thyroid gland, may consider dedicated thyroid ultrasound imaging.[facility] Work Phone: eXAMINATION: MRI CERVICAL SPINE WO CONTRAST CLINICAL HISTORY: M47.12 Cervical spondylosis with myelopathy ICD10 COMPARISONS: NONE AVAILABLE TECHNIQUE: Multiplanar multisequence MRI images of the cervical spine were obtained without contrast. FINDINGS: There is straightening of the lordotic curvature of the cervical spine which may be secondary to positioning versus muscle spasm. There is no acutefracture. There is preservation of the vertebral body [...] thecal sac and mildly abutting the cord w ithout central canal narrowing. There is no neuroforaminal narrowing. There is mild bilateral facetarthrosis. C3-4: There is a 4 mm distal aspect complex flattening the anterior portion of the thecal sac and abutting the cord with mild central canal narrowing. There is mild bilateral facet and uncovertebral joint hypertrophy producing mild bilateral neural foraminal narrowing. C4-5: There is a 4mm to suspect complex flattening the thecal sac and abutting the cord and mildly flattening the cord with moderate central canal narrowing. There is moderate bilateral facet and uncovertebral joint hypertrophy with severe bilateral neural foraminal narrowing. C5-6: There is a 4 mm dysesthetic complex asymmetric toward the left side flattening the thecal sac but not upon the cord with mild centralcanal narrowing. There is mild bilateral facet arthrosis [...] joint hypertrophy with mild left neural foraminal narrowing.[facility] Work Phone: e, [facility] Incoming Radiant Results From [employer] - 09/10/2020 12:02 PM EDT EXAMINATION: MRI [...] thecal sac and abutting the cord and mildlyflattening the cord with moderate central canal narrowing. There is moderate bilateral facet and uncovertebral joint hypertrophy with severe bilateral neural foraminal narrowing. C5-6: There is a 4 mm dysesthetic complex asymmetric toward the left side flattening the thecal sacbut not upon the cord with mild central [...] is unremarkable. There is mild left facet anduncovertebral joint hypertrophy with mild left neural foraminal [...] gland, may consider dedicated thyroid ultrasound imaging. [facility] Work Phone: [facility] Work Phone: MRI CERVICAL SPINE WO CONTRASTon 36-43-2448DWL CERVICAL SPINE WO CONTRASTEXAMINATION: MRI CERVICAL SPINE WO CONTRAST CLINICAL HISTORY: [...] thecal sac and abutting the cord and mildlyflattening the cord with moderate central canal narrowing. There is moderate bilateral facet and uncovertebral joint hypertrophy with severe bilateral neural foraminal narrowing. C5-6: There is a 4 mm dysesthetic complex asymmetric toward the left side flattening the thecal sacbut not upon the cord with mild central [...] is unremarkable. There is mild left facet anduncovertebral joint hypertrophy with mild left neural foraminal [...] Signed by: Leandro Spaulding MD 09/10/20 Final resultNoGood Samaritan Medical CenterCOVID-19, NAAon 09-04-2020 SARS-CoV-2 (COVID-19) RNA AISHA+probe Ql (Unsp spec)Not detectedNormalNot Detect [facility] HospitalComment on above:Result Comment: This nucleic acid amplification test was developed and its performance characteristics determined by [employer]. Nucleic acid amplification tests include RT-PCR and [...] detected) result in this assay. Performed at: [address], [place], [place] [id number] Pet Stylist: Lane Rivera PhD, Phone: [phone] By: #### IRCOV #### [facility] [address] [place] [address] LBSZH-19, NAAon 88-95-6527Axfzol SwabAnterior narPoudre Valley HospitalComment on above:Performed By: #### IRCOV #### [facility] [address] [place] [id number] Vital Signs Date TimeVital SignValuePerforming TxbukmqiiHiuwbbjl32-17-0576 15:43-0400Body mass index (BMI) [Ratio]30.55 kg/j8Uyexx Viviane DO Work Phone: 1(419)[facility]-4[facility] SystemTvovolxdhz28-61-8831 15:43-0400Body .74 kgCorey Viviane DO Work Phone: 1(419)[facility] [place], [place] [address]Rtabliaqsk63-34-4352 15:43-0400Diastolic blood fwfodtcf94 mm[Hg]Ze Viviane DO Work Phone: 1(419)[facility] [place], [place] [address]Rjaxaraksj58-47-0933 15:43-0400Systolic blood legrvxjf123 mm[Hg]Ze Viviane DO Work Phone: 1(419)[facility] [place], [place] [address]Ayjdwajlkd55-82-3773 16:09-0400Body .6 cmCorey Viviane DO Work Phone: 1(419)[facility] [place], [place] [address]Qizkphpaqi56-43-1476 16:09-0400Body mass index (BMI) [Ratio]32.01 kg/b4Cgity Viviane DO Work Phone: 1(419)[facility] [place], [place] [address]Vhfsifjzpj42-81-4880 16:09-0400Body ggeqot25.6 kg Ze Viviane DO Work Phone: 1(419)[facility] [place], [place] [address]Hpnvrhiwcm56-61-1631 16:09-0400Diastolic blood hvkayivp35 mm[Hg]Ze Viviane DO Work Phone: 1(419)[facility] [place], [place] [address]Kqhcjzhura42-98-3660 16:09-0400Systolic blood nohzzzgf180 mm[Hg]Ze Viviane DO Work Phone: 1(419)[facility] [place], [place] [address]Puutzeyoni99-69-4293 15:33-0400Body mass index (BMI) [Ratio]32.26 kg/x5Grvaz Viviane DO Work Phone: 1(419)[facility] [place], [place] [address]Nqfudzchhg70-03-8309 15:33-0400Body vjnaeu99.61 kgCorey Viviane DO Work Phone: [phone]-[facility] DurhamFre[facility] SystemTcxwpjuaev55-39-5808 15:33-0400Diastolic blood ndartgdj19 mm[Hg]Ze Viviane DO Work Phone: [phone]-[facility] SystemBldtppcody57-94-5565 15:33-0400Systolic blood gqsybfpj381 mm[Hg]Ze Viviane DO Work Phone: [phone]-[facility] DurhamFre[facility] Health SystemDksdqskumv34-51-2956 10:15-0400Diastolic blood unjtemgb04 mm[Hg]Tj Garza MD Work Phone: 1(339)860-[address] [place], [place] 5230207-10-2025 10:15-0400 Heart rate85 /Fina Garza MD Work Phone: 1(947)[facility]-[address] [place], [place] 5230207-10-2025 10:15-0400 Respiratory rate16 /Fina Garza MD Work Phone: 1(755)[address] [place], [place] 4824307-10-2025 10:15-0400 SaO2% (BldA) [Mass fraction]96 %Tj Garza MD Work Phone: 1(118)[facility]-[address] [place], [place] 5230207-10-2025 10:15-0400 Systolic blood pmddahog432 mm[Hg]Tj Garza MD Work Phone: 1(685)[address] [place], [place] 4824307-10-2025 08:07-0400 Body fewseu856.56 cmTj Garza MD Work Phone: 1(190)[facility]-[address] [place], [place] 5230207-10-2025 08:07-0400 Body taxvxr63.64 kgTj Garza MD Work Phone: 1(394)[address] [place], [place] 4824302-12-2025 15:46-0500 Body mass index (BMI) [Ratio]31.18 kg/v2Pyenn Viviane DO Work Phone: 1(490)555-[address] [place], [place] [address]Tgrsuhioic43-53-8287 15:46-0500Body cejifc43.83 kgCorey Viviane DO Work Phone: 1(993)068-[address] [place], [place] [address]Rcofurrmvp18-50-2328 15:46-0500Diastolic blood ghgbtzso79 mm[Hg]Ze Viviane DO Work Phone: [facility] Iuxrmrqqgq82-95-4242 15:46-0500Systolic blood jxvirrfn395 mm[Hg]Ze Viviane DO Work Phone: [facility] SystemIuervqgkky26-96-8201 15:45-0400Body ppaoet547.56 cmRobert [employer] Other [employer] Other 11-01-2023 15:45-0400Body mass index (BMI) [Ratio]25.4 kg/b6Kpxxnb [employer] Other [employer] Other 11-01-2023 15:45-0400Body wbzdic35.13 kgRobert [employer] Other [employer] Other 10-16-2023 18:30-0400Diastolic blood pogsyujz69 mm[Hg] MD Tj Garza Work Phone: 1(220)940-[address] [place], [place] 5230210-16-2023 18:30-0400 Heart rate98 /minMD Tj Garza Work Phone: 1(609)990-[address] [place], [place] 5230210-16-2023 18:30-0400 Respiratory rate16 /minMD Tj Garza Work Phone: 1(788)866-[address] [place], [place] 5230210-16-2023 18:30-0400 SaO2% (BldA) [Mass fraction]96 %MD Tj Garza Work Phone: 1(703)263-[address] [place], [place] 5230210-16-2023 18:30-0400 Systolic blood omoiecgb066 mm[Hg]MD Tj Garza Work Phone: [phone]10-16-2023 16:45-0400 Body xampeeyauwd42 [degF]MD Tj Garza Work Phone: [phone]10-16-2023 16:15-0400 Inhaled oxygen flow rate10 L/minMD Tj Garza Work Phone: [phone])[address]10-16-2023 12:49-0400 Body jcslye609.02 cmMD Tj Hoy Work Phone: 1(674)461-[address] [place], [place] 5230210-16-2023 12:49-0400 Body mass index (BMI) [Ratio]26.5 kg/m2MD Tj Hoy Work Phone: 1(104)169-[address] [place], [place] 5230210-16-2023 12:49-0400 Body zffaza13 kgMD Tj Hoy Work Phone: 1(049)722-[address] [place], [place] 5230210-12-2023 15:30-0400 Body vevqms909.56 cmRobert Hilo II Other [employer] Other 10-12-2023 15:30-0400Body mass index (BMI) [Ratio] 25.44 kg/y9Iiksne Hilo II Other [employer] Other 10-12-2023 15:30-0400Body .22 kgRobert Jeremías II Other [employer] Other 03-20-2023 12:15-0400Body evwoba697.56 cmThomas Felter Other [employer] Other 10-11-2022 10:40-0400Body kyqsjt169.56 cmDale Cano Other [employer] Other 10-11-2022 10:40-0400Body mass index (BMI) [Ratio]36.9 kg/m2Dale Cano Other [employer] Other 10-11-2022 10:40-0400Body oprkwh97.52 kgDale Cano Other [employer] Other 04-08-2022 13:31-0400Body xkljkroegza75.88 [degF] Jerry QUIÑONEZ [facility] [place] 03-25-2022 14:00-0400Body .34 [degF] Jerry QUIÑONEZ [facility] [place] 08-04-2021 08:27-0400Body aimwdsqulnk25.1 [degF]Mejia Griffin MD Work Phone: [facility] Work Phone: 1(938) 393-127708-04-2021 08:27-0400Diastolic blood utafrrvn79 mm[Hg] Mejia Griffin MD Work Phone: [facility] Work Phone: 1(484) 480-876708-04-2021 08:27-0400Heart pxln705 /minMejia Griffin MD Work Phone: [facility] Work Phone: 1(457) 701-375608-04-2021 08:27-9507ZdD7% (BldA) [Mass fraction]98 % Mejia Griffin MD Work Phone: [facility] Work Phone: 1(729) 932-440008-04-2021 08:27-0400Systolic blood cyjkgjgi572 mm[Hg] Mejia Griffin MD Work Phone: [facility] Work Phone: 1(391) 704-768608-04-2021 04:29-0400Respiratory rate18 /minMejia Griffin MD Work Phone: [facility] Work Phone: 1(880) 354-367808-03-2021 08:30-0400Body .6 cmMejia Griffin MD Work Phone: [facility] Work Phone: 1(619) 380-456008-03-2021 08:30-0400Body mass index (BMI) [Ratio] 34.84 kg/m2Mejia Griffin MD Work Phone: [facility] Work Phone: 1(740) 720-620508-03-2021 08:30-0400Body .08 kgBo Elias [place] Work Phone: [facility] [employer] Work Phone: 1(316) 155-801405-25-2021 14:57-0400Diastolic blood mm[Hg] [address] Phone: 1(479) 634-154705-25-2021 14:57-0400Heart rate93 /minVirginia Gay Hospitalain [address] [employer] Work Phone: 1(431) 323-538105-25-2021 14:57-0400Respiratory rate16 /minLorain 2 [facility] [employer] Work Phone: 1(490) 956-938205-25-2021 14:57-0400Systolic blood zdznzovs868 mm[Hg] [address] Work Phone: 1(336) 501-980705-25-2021 12:41-0400Body ltwbja553.6 cmLorain [facility] Work Phone: 1(178) 166-462305-25-2021 12:41-0400Body mass index (BMI) [Ratio] 34.67 kg/e5Rvzpng31 [address] Phone: 1(487) 510-455805-25-2021 12:41-0400Body oofpss63.63 kgVirginia Gay Hospitalain [facility] HospitalWe[facility] Phone: 1(279) 981-611205-25-2021 12:41-3371LdC6% (BldA) [Mass fraction]99 % [address] Phone: Encounters Encounter DateEncounter TypeCare ProviderFacilityStart: 02-04-2025 End: 03-88-1148Tecxix outpatient visit 15 minutesVizerra Phone: [facility] [place] OBGYNComment on above:Follow-up encounter involving medication; Encounter for weight management; Hormone imbalanceStart: 02-04-2025 End: 37-28-3183Mnvoos flowsheetCorey Urge Phone: [facility] [place] OBGYNStart: 02-04-2025 End: 69-67-0961Cgldra flowsheetCorey Viviane DO Work Phone: [facility] [place] OBGYNStart: 01-07-2025 End: 97-79-2115Axupam outpatient visit 15 minutesCorey Viviane DO Work Phone: [facility] [place] OBGYNComment on above:Encounter for weight management; Postmenopausal HRT (hormone replacement therapy); Hot flashes; Night sweats; Dyspareunia in femaleStart: 01-07-2025 End: 10-07-5751Juhsmm flowsheetCorey Viviane DO Work Phone: [facility] [place] OBGYNStart: 01-07-2025 End: 29-32-5155Kmvdxj flowsheetCorey Viviane DO Work Phone: [facility] [place] OBGYNStart: 12-05-2024 End: 71-95-3140Qcnggh outpatient visit 15 minutesCorey Viviane DO Work Phone: [facility] [place] OBGYNComment on above:Postmenopausal HRT (hormone replacement therapy); Hot flashes; Night sweatsStart: 12-05-2024 End: 35-77-7482Zbfkqc flowsheetCorey Viviane DO Work Phone: [facility] [place] OBGYNStart: 12-05-2024 End: 35-67-0515Uvdwfy flowsheetCorey Viviane DO Work Phone: [facility] [place] OBGYNStart: 10-25-2024 End: 63-13-8575Vwwifctgo to same day surgery Brandon Teran MD-Ultrasound [facility] Work Phone: Start: 10-25-2024 End: 29-93-7863qqyrvemimzJzimrkq M Hoy MD Work Phone: [facility] Work Phone: Start: 05-30-2024 End: 97-44-9305Szglzh outpatient visit 15 minutesCorey Viviane DO Work Phone: [facility] BCP OBComment on above:Dyspareunia in female Start: 05-30-2024 End: 90-30-3517Tguhpy flowsheetCorey Viviane DO Work Phone: [facility] BCP OBStart: 05-30-2024 End: 10-14-0943Vmpfgq flowsheetCorey Viviane DO Work Phone: [facility] BCP OBStart: 04-30-2024 End: 11-06-7335Itaxgoika Result EncounterCorey Viviane DO Work Phone: n[facility] External Department UnsolicitedStart: 04-30-2024 End: 75-87-1264Ugztkwnnh Result EncounterCorey Viviane DO Work Phone: [facility] External Department UnsolicitedStart: 03-13-2024 End: 13-35-7847Uphuymhry Result EncounterCorey Viviane DO Work Phone: [facility] External Department UnsolicitedStart: 03-13-2024 End: 05-16-7767Remxsbyco Result EncounterCorey Viviane DO Work Phone: [facility] External Department UnsolicitedStart: 03-13-2024 End: 05-40-0859Otckbfv encounter procedureCorey Viviane DO Work Phone: noms HealthcareStart: 03-13-2024 End: 34-65-9088Ythjykpr preventive med est patient 40-64yrsCorey Viviane DO Work Phone: [facility] OBComment on above:Well woman exam with routine gynecological exam; Encounter for screening mammogram for malignant neoplasm of breast; Asymptomatic menopausal state; Dyspareunia in femaleStart: 02-02-2024 End: 23-04-5513jiryvazzcpIS Tj Teran Yaya Work Phone: [facility] Work Phone: Start: 02-02-2024 End: 78-47-0637Bavcwtf encounter procedureMD Tj Rodriguezdelvin Work Phone: [facility] Work Phone: Start: 32-51-2983Fjqzuz outpatient visit 15 minutes Edison Veronica IIFPG [facility] OrthopedicsStart: 04-20-2023 End: 39-76-6653glwahlhbbrHN Tj Teran Hoy Work Phone: [facility] Work Phone: Start: 04-20-2023 End: 34-75-2715Uycliki encounter procedureMD Tj Hoy Work Phone: [facility] Start: 03-17-2023 End: 17-07-7824ivikmmwmmrIP Tj M Hoy Work Phone: [facility] Work Phone: Start: 03-17-2023 End: 17-70-1823Ilgjuuy encounter procedureMD Tj Hoy Work Phone: [facility] Start: 03-03-2023(Post-Op) Post-OpRobert Jeremías IIFPG [facility] Start: 03-03-2023 End: 93-89-7755bukmsqrjgcUfssjf Hilo II Other [employer] Other Start: 02-16-2023(Post-Op) Post-OpRobert Hilo II [facility]icsStart: 02-16-2023 End: 67-03-2115jkrkklfmwhQvsxhc Jeremías II Other [employer] Other Start: 02-10-2023(Post-Op) Post-OpRobert Jeremías II [facility]icsStart: 02-10-2023 End: 61-48-2680zvvvspqthaXrgzpy Hilo II Other [employer] Other Start: 02-09-2023 End: 90-46-9729uejyevcjlcLkwlow Hilo II Other [employer] Other Start: 44-33-1059Cbpzdblal encounterRobert Hilo II [facility]icsStart: 01-31-2023 End: 90-92-0141Tsoxllaxc to same day surgery centerMD Tj Hoy Work Phone: [facility] CampusStart: 01-31-2023 End: 07-15-1299zaamkdotqrXS Tj M Hoy Work Phone: [facility] Work Phone: Start: 01-27-2023 End: 38-45-3350Vemdliogob RecurringMD Tj Hoy Work Phone: [facility]-Physical Therapy [place]Start: 01-27-2023 End: 76-80-7999zfypwrhwcxUP Tj M Hoy Work Phone: [place] [employer] Other Start: 38-38-7424Ttpuure encounter procedureRobert Hilo IIFPG [facility]icsStart: 01-21-2023(Prolonged) Prolonged ServicesRobert Hilo IIFPG [facility]icsStart: 01-21-2023 End: 97-78-3738sclglazcciXcpmht Hilo II Other [facility] [employer] Other Start: 01-20-2023 End: 60-53-7869joscbntwddNT Tj M Hoy Work Phone: [facility] Work Phone: Start: 01-20-2023 End: 57-88-8482Mwngfrz encounter procedureMD Tj Hoy Work Phone: [facility]-Pre-Surgical Testing Work Phone: Start: 12-24-2022 End: 56-31-9091mwdqcxiwbeGS Tj M Hoy Work Phone: [facility] Work Phone: Start: 12-24-2022 End: 85-55-0157Rjbqqxi encounter procedureMD Tj Hoy Work Phone: [facility] CenterStart: 12-24-2022 End: 16-42-1534penvmkbbpaPM Tj M Hoy Work Phone: [facility] Work Phone: Start: 12-24-2022 End: 81-45-2601Evakgiq encounter procedureMD Tj Hoy Work Phone: [facility] Start: 12-16-2022 End: 00-28-7355bgbitkbzqoJgwtat Felter Other [employer] Other Start: 18-87-5462Yfyukn outpatient visit 25 minutes Sawyer Bustamante [facility] [place]Start: 88-99-4630Kmoupuxnw encounter Sawyer FelterFPG Pain Management [place] CreekStart: 09-09-2022 End: 38-41-4052bemtmzsmviIS TJ HOY .Facility:Y5Yxdgg: 08-24-2022 End: 58-74-7860Vlfmksy encounter procedureMD Tj Hoy Work Phone: [facility] Start: 08-24-2022 End: 18-11-2524dlidxrbmalUW Tj M Hoy Work Phone: [facility] Work Phone: Start: 00-09-6141Jmztys outpatient visit 25 minutes Sawyer Bustamante [facility] [place]Start: 08-16-2022(Procedure) [facility]ierrez [facility] CenterStart: 08-16-2022 End: 74-36-4286dgljbbosxyAefsoy Felter Other [employer] Other Start: 08-04-2022 End: 54-37-3822kgnhoesidaMftooc [employer]ter Other [employer] Other Start: 40-01-4899Bgnuhv outpatient visit 25 minutes Sawyer FelterFPG [facility] Management [place] CreekStart: 89-33-4689Wyeagnxgo for general adult medical examination without abnormal findingsDR TJ HOY .[facility] Hospitaltart: 07-08-2022 End: 22-32-8055ccgkyzkelnTN TJ HOY .Facility:V0Ftzik: 07-08-2022 End: 32-89-6194Dmpdtzqon for general adult medical examination without abnormal findingsDR TJ HOY .Facility:S4Ojvnr: 07-05-2022 End: 16-71-9670tjrraptejdNffovy Felter Other [employer] Other Start: 19-20-0945Aisbcj outpatient visit 25 minutes Sawyer FelterFPG [facility] Management [place] CreekStart: 39-61-1125mwoturpepcQO TJ HOY .Facility:N6Txzuc: 02-23-2022 End: 93-40-0455bkmtuhqbgzFmdkjs Felter Other [employer] Other Start: 05-02-9238Igcwru outpatient visit 15 minutes Sawyer FelterFPG [facility] [place] CreekStart: 02-15-2022(Procedure) Short Sawyer FelterErie [facility] CenterStart: 02-15-2022 End: 94-04-9097buuwhvrdtrDllasz Felter Other [employer] Other Start: 02-01-2022 End: 30-21-7225bluyzixcmwHjhltn Felter Other [employer] Other Start: 38-08-6704Iwsyel outpatient new 45 minutes Sawyer FelterFPG [facility] [place] CreekStart: 43-54-0723Vdotxuaph encounter Sawyer Bustamante Referral CoordinatorStart: 01-26-2022 End: 18-35-4730sstnqwgrywHxup Braun Other [facility] [employer] Other start: 48-96-6206Zstoav outpatient new 45 minutesDale BraunFPG [facility] NeurosurgeryStart: 12-24-2021 End: 46-68-1576envalzmoziSN TJ GARZA .Facility:D8Mcwgp: 11-26-2021 End: 88-41-5721axecaptjkuBF TJ GARZA .Facility:T0Nrrhv: 07-24-2021 End: 35-50-8256Bbgeiya encounter procedureMichael R NILL General Surgery Nill/Said Lucien Start: 07-10-2021 End: 86-03-8337Ojjwvke encounter procedureMichael R NILL General Surgery Nill/Said Lucien Start: 11-18-2020 End: 53-55-8303Aqmwkqwxnz and management of inpatientValley View Hospitaltart: 11-18-2020 End: 93-21-3787nhvibqspheOH H. [facility] Hospitaltart: 11-18-2020 End: 66-37-2367Bkfhcsqhei and management of inpatientMejia Griffin MD Work Phone: [phone] [address] NeuroComment on above:Post-op pain (Primary Dx); Pain; Muscle spasmStart: 11-18-2020 End: 81-62-9098Qnagprryrs hospital visit by Chintan Griffin MD Work Phone: [facility] RadiologyComment on above:Pain Start: 09-09-2020 End: 24-52-6502esaxdwtmzeSTPJNXBValley View Hospitaltart: 09-09-2020 End: 73-80-6927Wltxyoczul hospital visit by physicianVirginia Gay Hospitalchris Mri Room [address] [place] [address] MRIComment on above:Cervical spondylosis with myelopathy; Cervical stenosis of spine; Cervical radiculopathy Procedures DateProcedureProcedure DetailPerforming ClinicianStart: 75-57-2551WQ TOMOSYNTHESIS SCREENING BICorey Viviane DO Work Phone: Start: 90-25-9198JC DEXA AXIAL SKELETONCorey Viviane DO Work Phone: Start: 42-27-4876UWE,APTIMA HPV,AGE GDLNCorey Viviane DO Work Phone: Start: 78-72-9876Qkcsx X-ray of left hipMD Tj Hoy Work Phone: Start: 43-89-5930Dcdqu X-ray of left hipMD Tj Hoy Work Phone: Start: 66-81-4535Gqwnl X-ray of left hipMD Tj Hoy Work Phone: [phone]: 07-93-9644Jnkmy X-ray of left hipMD Tj Hoy Work Phone: Start: 29-08-6613Gkgmt X-ray of left hipMD Tj Hoy Work Phone: Start: 60-18-4982Jkhsu replacement of left hip jointMD Tj Hoy Work Phone: [phone]: 04-41-8514Kcxzxuxfqnb resistant Staphylococcus aureus cultureMD Tj Hoy Work Phone: [phone]: 89-56-8118Dhhpk X-ray of left hipMD Tj Hoy Work Phone: Start: 65-14-4638Ntwzbj of right inguinal hernia Jerry NILL Start: 71-34-0875Udbgnqcp of cervical intervertebral discMichael NILL Comment on above:C5-J0Fzufw: 25-68-5981Xphwpadyhsk during operationMejia Griffin MD Work Phone: Start: 18-82-1193Luy spinal canal cervical w/o contrast Marcia Griffin MD Work Phone: Biopsy of breastMichael NILL Comment on above:rightCesarean sectionMichael NILL ColonoscopyMichael NILL Exploratory laparotomyMichael NILL Total abdominal hysterectomy with bilateral salpingo-oophorectomyMichael NILL Plan of Treatment DateCare ActivityDetailAuthorStart: 03-19-2025 End: 13-87-9340Xeueary encounter procedureNOMS BCP OBStart: 03-04-2025 End: 34-00-2669Bfhqdbo encounter hmmcseruc48/17/2025 3:50 PM EST Office Visit [facility] [place] [facility] [address] [place] [id number] Paola Allen PA [address] [place], [place] [address] [facility] [place] OBGYNStart: 02-04-2025 End: 57-08-0248Lwyimqh encounter procedureNOMS [place] OBGYNComment on above: ArrivedStart: 01-07-2025 End: 95-72-9223Ozniiut encounter procedureNOMS [place] OBGYNComment on above: ArrivedStart: 12-05-2024 End: 07-43-8666Zosezup encounter ziyigeznj79/20/2025 3:20 PM EDT Office Visit [facility]emeh BALN [address] [place] [address] Ze Pan DO [address] [place] [address] ArrivedNOMS Lucien OBGYNComment on above:ArrivedStart: 74-51-2892TsmzchjbfMcKitrick Hospitaltart: 10-25-2024 AspirationMcKitrick Hospitaltart: 05-30-2024 End: 27-41-6709Qbxwwyn encounter cwjdovpwm10/12/2025 3:20 PM EST Office Visit [facility] BCP OB [address] [facility] [address] [place] [address] VivianeZe araujo, DO [address] [place] [address] ArrivedNOCO BCP OBComment on above:ArrivedStart: 03-13-2024 End: 87-20-1027AYX Skeletal system Views for bone densityDEXA bone density Imaging Routine Well woman exam with routine gynecological exam Asymptomatic menopausal state Expected: 03/13/2024 (Approximate), Expires: 03/13/2025N[facility] HealthcareComment on above:Expected: 03/13/2024 (Approximate), Expires: 03/13/2025Start: 03-13-2024 End: 72-49-8731VE Breast - bilateral ScreeningBilateral screening mammogram Imaging Routine Well woman exam with routine gynecological exam Encounter for screening mammogram for malignant neoplasm of breast Expected: 03/13/2024, Expires: 05/13/2025[facility] Work Phone: comment on above:Expected: 03/13/2024, Expires: 05/13/2025Start: 48-35-1606Bicsf X-ray of left hipXR hip LT min 2V(w/wo pelvis)* [facility] CenterStart: 38-80-1079FW Hip - left 2 ViewsMcKitrick Hospitaltart: 62-05-2032NluxlsguoMartin Memorial Hospital CenterStart: 57-62-1045AlsaayqfvMartin Memorial Hospital CenterStart: 90-76-9570Bgicwlva therapy procedureMcKitrick Hospitaltart: 52-72-2974GfdzfdygeMartin Memorial Hospital CenterStart: 18-57-7146LPWH CultureMRSA CultureMcKitrick Hospitaltart: 39-20-5647Yvtgzxviv [facility] Work Phone: start: 12-05-2020 End: 76-99-4228Uwfayzc encounter jxaqrgurw77/20/2021 Office Visit Neurosurgery Mejia Griffin MD [address] [employer] [facility] [address] [place], [place] [id number] [facility] NeurosurgeryStart: 09-19-2020 End: 65-49-8889Hedfiko encounter acphevlvh33/04/2021 Office Visit Neurosurgery Mejia Griffin MD [address] [facility] [address] [place] [address] [phone] [facility] NeurosurgeryStart: 37-27-4996Bpfzeaaio for malignant neoplasm of breastBreast cancer screenfarmbuy Phone: start: 19-68-8834Sydoswskc for malignant neoplasm of colonColon cancer screen colonoscopyTraiana Work Phone: start: 14-37-1231Hnfuxewh Vaccine (1 of 2)Shingles Vaccine (1 of 2)[employer] Phone: start: 17-18-6226Qtkmdsukj for malignant neoplasm of colonColon cancer screen colonoscopyfarmbuy Phone: start: 04-43-1667Affwjlmq screenDiabetes screenTraiana Work Phone: start: 14-75-4709Xrhbknguz for malignant neoplasm of cervixCervical cancer screenTraiana Work Phone: start: 24-95-6365FRyS/Tdap/Td vaccine (1 - Tdap) DTaP/Tdap/Td vaccine (1 - Tdap)[employer] Phone: start: 69-88-2298PMT screeningHIV [employer] Phone: start: 03-40-1654VZJDS-19 Vaccine (1)COVID-19 Vaccine (1)[employer] Phone: start: 53-88-0666Loimp panelLipid screenNationwide Children'S Hospital [employer] Phone: start: 90-36-9605Srbqwrbqhc measurementCreatinine monitoringNationwide Children'S Hospital [employer] Phone: start: 00-11-1387Gxkkfitsc C screeningHepatitis C screenNationwide Children'S Hospital [employer] Phone: start: 23-22-7686Gazrliocl monitoringPotassium monitoringNationwide Children'S Hospital [employer] Work Phone: continuous pulse oximetryPulse oximetry, continuous Respiratory Care Routine Every 4hr until discontinued starting 11/18/2020[facility] [employer] Phone: comment on above:Every 4hr until discontinued starting 11/18/2020otinine [Mass/volume] in Serum or PlasmaDoctors Hospital End: 05-75-0866Jpbpaejgfsb during operationFLUORO FOR SURGICAL PROCEDURES Imaging Routine Pain Once for 1 Occurrences starting 11/18/2020 until 11/18/2020 [facility] [employer] Work Phone: comment on above:Once for 1 Occurrences starting 11/18/2020 until 11/18/2020Fluoroscopy during operationFLUORO FOR SURGICAL PROCEDURES Imaging Routine Pain 11/18/2020 1:30 PM EDTMSelect Medical Specialty [facility] Work Phone: Glucose measurement estimated from glycated hemoglobin Doctors HospitalMethicillin resistant Staphylococcus aureus [Presence] in Unspecified specimen by Organism specificcultureDoctors HospitalNicotine [Mass/volume] in Serum or PlasmaDoctors HospitalOxygen therapy [Minimum Data Set][facility] [employer] Work Phone: comment on above:Daily until discontinued starting 1Daily until discontinued starting 11/18/2020atient EducationKnow your Meds [facility] Needle Biopsy, ThyroidHolzer Health System Work Phone: Phase I & II - metered glucosePhase I & II - metered glucose Point of Care Testing Routine As Needed until discontinued starting 09/09/2020[facility] [employer] Phone: comment on above:As Needed until discontinued starting 09/09/2020pirometry panelIncentive spirometry Respiratory Care Routine Every 2hr while awake until discontinued starting 09/09/2020[facility] Phone: comment on above:Every 2hr while awake until discontinued starting 09/09/2020urgical PathologyDiley Ridge Medical CenterInteractive Networks Phone: comvftn on above:Release Upon Ordering for 1 Occurrences starting 11/18/2020 End: 86-72-5698Rlwucmng PathologySurgical Pathology Lab Routine Once for 1 Occurrences starting 11/18/2020 until 11/18/2020[facility] Phone: comment on above:Once for 1 Occurrences starting 11/18/2020 until 11/18/2020THIN PREP TIS PAP AND HR HPV DNATHIN PREP TIS PAP AND HR HPV DNA Pathology and Cytology Routine Well woman exam with routine gynecol ogical exam Ordered: 03/13/2024N[facility] HealthcareComment on above:Ordered: 03/13/2024[facility] Immunizations Immunization DateImmunizationNotesCare ProviderFacilityNEGATED: Highlighted row has not occurred!14-49-3033coeagcuxh virus vaccine, unspecified formulation Jerry QUIÑONEZ General Surgery Fatemeh Payers DatePayer CategoryPayerPolicy [id number] Cross Blue ShieldBCBS [id number] Health [id number] 1.2.840.795875.1.13.239.2.7.3.843745.83397-86-4225Uzwsccx Health [id number] 1.2.840.459894.1.13.239.2.7.3.672849. [id number] 2.160.1.877036.3.57[id number] 2.0.1.505440.3.57[id number] 2.0.1.724818.3.57[id number] 2.0.1.063211.3.57[id number] 2.0.1.533031.3.57[id number] 2.0.1.745501.3.57[id number] 2.0.1.595952.3.57[id number] 2.0.1.865181.3.579.2.88382-66-3202Vzmq Cross Blue [id number] 2.0.9.496823.52921754-77-7637Gecv-[id number] Cross Blue Shield [id number] 2.0.1.295711.19Private Health InsuranceAetna Insurance Co [id number] 2.840.1.0[id number] 2.16.840.1.167809.3.579.2.531 Social History DateTypeDetailFacilityStart: 09-02-2020 End: 13-86-3908Clkcugs smoking status NHISNever smokerTraiana Work Phone: start: 09-02-2020 End: 59-46-6239Pbjtamw use and exposureNever usedTraianaStart: 1970 Sex Assigned At BirthNot on [employer] Work Phone: start: 45-09-1768Akdloht SDOH Dnaktimwp9Ycpgp Health Work Phone: start: 09-57-4709Vqiblsk SDOH Food Fmlsp6Aojxd Health Work Phone: start: 18-09-2281Dvk Assigned At BirthFemaleMePresent Work Phone: Exposure to SARS-CoV-2 (event)Not [facility] HospitalK[facility]it Start: 21-50-7886Imlsqqd smoking statusNeverGeneral Surgery Lucien Sex Assigned At BirthFemaleGeneral Surgery [place] Tobacco smoking status NHISTobacco smoking consumption unknownNOMS HealthcareSexFemale (finding)[facility] Medical Equipment Procedure CodeEquipment CodeEquipment Original TextEquipment IdentifierDates Arthroplasty, hip, total, anterior approachAcetabular shell ()[id number] FDAStart: 94-19-7115Pezqahsxwvfi, hip, total, anterior approachOrthopaedic bone screw, non-bioabsorbable, sterile ()[id number] FDAStart: 29-61-6012Ysaixnpdtvtk, hip, total, anterior approachOrthopaedic bone screw, non-bioabsorbable, sterile ()[id number] FDAStart: 51-43-1050Fbfbyqhbpdgk, hip, total, anterior approachCeramic femoral head prosthesis ()[id number] FDAStart: 38-27-1481Elqqltnzvibb, hip, total, anterior approachCoated hip femur prosthesis, modular ()[id number] FDAStart: 70-11-7532Zfekmqkwjwwl, hip, total, anterior approachNon-constrained polyethylene acetabular liner ()[id number] FDAStart: 66-04-2746Ohgn Spnl T42fi8kz78nz Lum Lord Intbdy Fus Triad Cc - [id number]_jlkTkxvl: 35-89-8072Hilli Spnl O61ql4zh52up Corticocancellous Lord Triad - [id number]_impStart: 11-39-7769Yrlmo Spnl L7mm Dia2.6mm Lum Lat Mass Leverage Lfs 876983_impStart: 83-99-2193Kxisb Spnl L42mm Ant Cerv 2 Lev Translational Likely Mmg239824_olaZomqd: 30-53-4059Dfnks Spnl L13mm Dia4mm Ant Cerv St Melanie Ang Compr Likely Fom499598_awiNmttm: 81-39-2725Xjhrm Spnl L5mm Dia2.6mm Stubbs Leverage Lfs 876987_impStart: 38-56-5817Quuex Spnl Cran Caud Stubbs 9.5mm M Leverage Lfs [id number]_impStart: 11-18-2020 Goals DatePatient GoalDesired Activity/State Clinical Notes 11-18-2020 to 02-04-2025 Note Date & HnysOzjuOjygdppw55-50-5336 History of Present illness Narrative* Shweta Bryant LPN - 02/04/2025 3:20 PM EDT Reason for Appointment: Patient ID: Ana Cruz is a 54 y.o. female who presents for Follow-up Patient presents today for Follow up appointment to discuss results. and Weight Management Consult. MEDICATIONS Current Outpatient Medications Medication Instructions acetaminophen (TYLENOL) 1,000 mg, Oral, Every 6 hours PRN estradiol (Climara) 0.1 MG/24HR 1 patch, Transdermal, Weekly estradiol (Estrace) 0.1 MG/GM vaginal cream irbesartan (AVAPRO) 150 mg, Daily lansoprazole (PREVACID) 30 mg, As needed LANSOPRAZOLE PO 30 mg, Oral phentermine (ADIPEX-P) 37.5 mg, Oral, Daily before breakfast phentermine (ADIPEX-P) 37.5 mg, Oral, Daily before breakfast simvastatin (ZOCOR) 20 mg, Nightly SUMAtriptan (IMITREX) 100 mg, Oral, Once as needed ALLERGIES Allergies Allergen Reactions Attends Briefs Small Itching Grepafloxacin Hives PROBLEMS Active Ambulatory Problems Diagnosis Date Noted [...] nursing note reviewed. Exam conducted with a circuit clerk present. Vitals: Estimated body mass index is 30.55 kg/m as calculated from the following: Height as of 01/07/25: 5' 4 . Weight as of this encounter: 178 lb. BP: 170/90 No LMP recorded. Patient has had a hysterectomy. Assessment/Plan ICD-10-CM 1. Follow-up encounter involving medication Z79.899 estradiol (Climara) 0.1 MG/24HR 2. Encounter for weight management Z76.89 phentermine (Adipex-P) 37.5 MG tablet estradiol (Climara) 0.1 MG/24HR 3. Hormone imbalance E34.9 estradiol (Climara) 0.1 MG/24HR Patient presents to office to follow up on Climara Patch and obtain Adipex #2 prescription. Patientvoiced that she thought that Climara patch was going to be increased & new dosage sent to pharmacy. Adipex #2 printed and signed for patient to take to pharmacy. Patient to return to clinic in 4 weeks for Adipex#3. Documented by Shweta Bryant LPN on behalf of: Ze Pan DO documented in this encounterFreeman Health SystemGimeoxwpgg26-07-6691 History of Present illness Narrative* Ze Pan DO - 01/07/2025 3:50 PM EDT Reason for Appointment: Patient ID: Ana Cruz [...] nursing note reviewed. Exam conducted with a circuit clerk present. Vitals: Estimated body mass index is [...] of: Ze Pan DO documented in this encounterFreeman Health SystemIrhceijaay61-51-6729 History of Present illness Narrative* Radha Mojica, SLASHER SAWYER - 12/05/2024 3:20 PM EDT Reason for Appointment: Patient ID: Ana Cruz [...] nursing note reviewed. Exam conducted with a circuit clerk present. Vitals: Estimated body mass index is [...] of: Ze Pan DO documented in this encounterFreeman Health SystemBjwqdhsbsj73-25-4414 History of Present illness Narrative* Radha Mojica LPN - 05/30/2024 3:20 PM EST Reason for Appointment: Patient ID: Ana Cruz [...] nursing note reviewed. Exam conducted with a circuit clerk present. Vitals: Estimated body mass index is [...] of: Ze Pan DO documented in this encounterFreeman Health SystemWrgroxtowx38-73-8297 History of Present illness Narrative* Radha Mojica LPN - 03/13/2024 8:30 AM EST Reason for Appointment: Patient ID: Ana Cruz [...] nursing note reviewed. Exam conducted with a circuit clerk present. Vitals: Estimated body mass index is [...] in 2 months for recheck on estrace cream.Pap was obtained without difficulty and patient given mammogram order to have scheduled/obtained. Orders Placed This Encounter Procedures Bilateral screening mammogram DEXA bone density Follow Up: Patient is to return in one year for annual unless needed otherwise. Documented by Radha Mojica LPN on behalf of: Ze Pan DO documented in this encounterFreeman Health SystemRkhezipxkm51-71-4099 Evaluation note* Encounter Date Diagnosis Assessment Notes Treatment Notes Treatment Clinical Notes Apr, S/P total left hip arthroplasty (ICD-10 - Z96.642) Apr,ftercare following joint replacement surgery (ICD-10 - Z47.1) Apr,resence of left artificial hip joint (ICD-10 - Z96.642) [facility] Overall she is doing great. [...] to call with any questions or concerns. My1login Other 11-16-2023 Evaluation note* Encounter Date Diagnosis Assessment Notes Treatment Notes Treatment Clinical Notes Feb, S/P total left hip arthroplasty (ICD-10 - Z96.642) Feb,ftercare following joint replacement surgery (ICD-10 - Z47.1) Feb,resence of left artificial hip joint (ICD-10 - Z96.642) Feb,OtherPatient continues to do very well after her total hip. Her skin is still healing at the apex of theincision. Recommended not submerging it for another 2 weeks. Still recommended local wound care. Atthis point I will see her in 2 weeks with x-rays of the left hip. My1login Other 11-01-2023 Evaluation note* Encounter Date Diagnosis Assessment Notes Treatment Notes Treatment Clinical Notes Feb, S/P total left hip arthroplasty (ICD-10 - Z96.642) Feb,ftercare following joint replacement surgery (ICD-10 - Z47.1) Feb,resence of left artificial hip joint (ICD-10 - Z96.642) Feb,[facility] Overall patient is doing very [...] off narcotic pain medication. They can take hawq-kbo-qziwwnxerec-inflammatories as needed for assistance with swelling and pain associated with the operative extremity. Patient to continue their aspirin DVT prophylaxis as previously instructed. This includes wearing their ALYSSA hose on the operative extremity for another two weeks. Follow-up in 2 weeks for a wound check and if everything looks good at that point then 2 weeks for repeat examination and x-rays of the left hip. My1login Other 10-26-2023 Evaluation note* Encounter Date Diagnosis Assessment Notes Treatment Notes Treatment Clinical Notes Jan, Aftercare following joint replac ement surgery (ICD-10 - Z47.1) Jan,resence of left artificial hip joint (ICD-10 - Z96.642) Jan,S/P total left hip arthroplasty (ICD-10 - Z96.642) Jan,[facility] The Aquacel was removed today and it clearly shows reaction to the adhesive. The proximal aspect ofthe Zipline was removed and Steri-Strips were applied. Some of the Zipline was tightened. At this point patient will call if there is any concerns. We will plan to keep it clean and dry. Local wound care was discussed. Patient can keep her appointment next week. We also prescribed her a Medrol Dosepak to help calm down this allergic reaction. My1login Other 10-12-2023 Evaluation note* Encounter Date Diagnosis Assessment Notes Treatment Notes Treatment Clinical Notes Jan, Primary osteoarthritis of left h ip (ICD-10 - M16.12) Jan,ge-related osteoporosis without current pathological fracture (ICD- 10 - M81.0) Jan,Other usp (current) drug therapy (ICD-10 - Z79.899) Jan,Other1. Left JILLIAN Home Medications - DVT prophylaxis: Aspirin - NSAID: Celebrex - Disposition: Same-day discharge Joints Meeting Checklist - Pharmacy: [facility] to bed - Approach/Technique: anterior, Talbott bed - Implants: Avenir Complete/G7; - Anesthesia: general vs spinal - Blocks: Fascia iliaca - Preop Antibiotics: Ancef - TXA: yes-systemic - Positioning/OR Bed: supine on Talbott bed - Intraop X-ray: yes - Fraser: no - Tourniquet: no - Antibiotic powder: yes-2 grams of vanc - Antibiotic cement: no - Dressing: Zipline and Aquacel The patient has tried and failed all conservative treatment options to include: activity modification, physical therapy, oral anti-inflammatories, and intra- articular steroid injections. We will moveforward with the definitive treatment option and schedule the patient for the above mentioned procedure. The risks involved with surgery and postoperative complications were discussed in relation to the patient's non-modifiable risk factors including but not limited to the following: Hypercholesterolemia Depression Hypertension All questions were answered after [...] above surgery. OARRS report generated and reviewed. My1login Other 10-06-2023 Evaluation note* Encounter Date Diagnosis Assessment Notes Treatment Notes Treatment Clinical Notes Jan, Other Prolonged Services 1. H and P date: 01/27/2023 2. Diagnosis: Left hip primary osteoarthritis 3. Counseling: Patient received counseling at their history and physical. 4. Coordination of care: The patient was discussed at today's total joints meeting with anesthesia,OR staff, and implant reps in an effort to coordinate the patient's care during the perioperative period. The anesthesiologist was involved in discussions regarding the patient's pain management suchas regional blocks, anesthesia plans the day of surgery such as general versus spinal, as well as afinal review of lab work to ensure the patient could proceed with surgery safely. The manager office services was vital for surgery timing and scheduling purposes. The implant rep was also available for necessarydiscussions regarding preoperative templates that were created on preoperative x-rays to ensure the appropriate implants and sizes of implants would be available the day of surgery. The patient's discharge plan was also discussed and the final decision was confirmed. 5. Medication Changes: None 6. Lab Tests: The patient's screening tests including albumin levels, vitamin D levels, hemoglobin,hemoglobin A1c, cotinine serum level, and MRSA nasal cultures were all reviewed to ensure appropriate perioperative care can be performed. This included selection of perioperative antibiotics, surgical dressing, and any contact precautions that may need to be enacted. The patient's presurgical testi ng lab work was also reviewed. This included [...] plans. Prolonged services time spent: 32 minutes My1login Other 08-31-2023 Evaluation note* Encounter Date Diagnosis Assessment Notes Treatment Notes Treatment Clinical Notes Nov, Sacroiliitis, not elsewhere clas sified (ICD-10 - M46.1) Nov,Osteoarthritis of left hip (ICD-10 - M16.12)Patients primary complaint today continues to be severe, progressing left hip and groin pain into the lateral thigh. Unfortunately, previous intra-articular hip joint injections did not provide the patient with the relief she was hoping for. Recent MRI results show evidence of cartilage thinning ofthe weightbearing portion of the hip with subarticular [...] with patient in regards to patients condition. Nov,hronic pain (ICD-10 - G89.29) Nov,OtherAbove note written by Nino Reese MA, Office Workforce Planner. Edited and approved by Dr. Sawyer Greer MD. My1login Other 08-31-2023 Evaluation note* Encounter Date Diagnosis Assessment Notes Treatment Notes Treatment Clinical Notes Nov, Osteoarthritis of left hip (ICD- 10 - M16.12) My1login Other 05-09-2023 Evaluation note* Encounter Date Diagnosis Assessment Notes Treatment Notes Treatment Clinical Notes August, Trochanteric bursitis, left hip (ICD-10 - M70.62) August,Left hip pain (ICD-10 - M25.552)Patients primary complaint today is left hip/groin and thigh pain. She has failed previous conservative treatments and continues to experience progressing symptoms. I will order an MRI of her hip forfurther evaluation of her pain symptoms. Pending the results, we can consider a referral to orthopedics vs further treatment options. We will follow up with the patient once we obtain the results. Anatomy discussed in detail with patient in regard to patients condition. August,Sacroiliitis, not elsewhere classified (ICD-10 - M46.1) August,hronic pain (ICD-10 - G89.29) August,OtherAbove note written by Jcarlos Jovel LPN, Office Workforce Planner. Edited and approved by Dr. Sawyer Greer MD. My1login Other 04-19-2023 Evaluation note* Encounter Date Diagnosis Assessment Notes Treatment Notes Treatment Clinical Notes Jul, Sacroiliitis, not elsewhere clas sified (ICD-10 - M46.1) Jul,Trochanteric bursitis, left hip (ICD-10 - M70.62) Jul,Left hip pain (ICD-10 - M25.552)We discussed treatment options for the patient's persistent left hip/groin pain. She shows notable pain consistent with the hip joint. She has failed multiple previous conservative treatment options.Given location of pain and exam findings, patient is a candidate for a left hip joint injection, which we will proceed with. Risks and benefits of procedure explained to patient; patient verbalizes understanding. In the meantime she will continue with Diclofenac Sodium 75 mg twice daily. Anatomy dis cussed in detail with patient in regard to patients condition. Jul,hronic pain (ICD-10 - G89.29) Jul,OtherAbove note written by Jcarlos Jovel LPN, Office Workforce Planner. Edited and approved by Dr. Sawyer Greer MD. My1login Other 03-20-2023 Evaluation note* Encounter Date Diagnosis Assessment Notes Treatment Notes Treatment Clinical Notes Jun, Sacroiliitis, not elsewhere clas sified (ICD-10 - M46.1) We discussed treatment options for the patient's persistent low left lumbar/gluteal pain. She showsnotable pain consistent with the sacroiliac joint. She has failed multiple previous conservative treatment options. Given location of pain and exam findings, patient is a candidate for a repeat left sacroiliac joint injection, which we will proceed with. Risks and benefits of procedure explained topatient; patient verbalizes understanding. Additionally we will start her on Diclofenac Sodium 75 mg twice daily. Risks and side effects of this medication was discussed in detail with the patient who voiced understanding. We discussed if symptoms persist we can consider facet injections. Anatomy of spine discussed in detail with patient in regard to patients condition. Jun,Trochanteric bursitis, left hip (ICD-10 - M70.62) Jun,Left hip pain (ICD-10 - M25.552)Patient is voicing some complaints of left hip pain today however this remains tolerable. We discussed proceeding with a left intra-articular hip joint injection should her symptoms progress. Jun,hronic pain (ICD-10 - G89.29) Jun,OtherAbove note written by Jcarlos Jovel LPN, Office Workforce Planner. Edited and approved by Dr. Sawyer Greer MD. [employer] Other 11-08-2022 Evaluation note* Encounter Date Diagnosis Assessment Notes Treatment Notes Treatment Clinical Notes Feb, Sacroiliitis, not elsewhere clas sified (ICD-10 - M46.1) Patient voices minimal complaints [...] is reasonably well controlled and she is inagreement with our treatment plan. Feb,Trochanteric bursitis, left hip (ICD-10 - M70.62)Patient denies any complaints of pain in the area at this time. She attributes this to a recent left trochanteric bursa injection. We will continue to monitor and proceed with future treatment to thearea as needed. Overall, patient believes their pain is reasonably well controlled and she is in agreement with our treatment plan. Feb,Left hip pain (ICD-10 - M25.552)Patient is voicing some complaints of left hip pain today however this remains tolerable. We discussed proceeding with a left intra-articular hip joint injection should her symptoms progress. Feb,hronic pain (ICD-10 - G89.29) Feb,therAbove note written by Nino Reese MA, Office Workforce Planner. Edited and approved by Dr. Sawyer Greer MD. My1login Other 10-17-2022 Evaluation note* Encounter Date Diagnosis Assessment Notes Treatment Notes Treatment Clinical Notes Jan, Other low back pain (ICD-10 - M5 4.59) Jan,acroiliitis, not elsewhere classified (ICD-10 - M46.1)We discussed treatment options for the patient's persistent low left sided lumbar/gluteal pain. Sheshows notable pain consistent with the sacroiliac joint. She was recently [facility] feels she would benefit from a sacroiliac joint injection. She has failed conservative treatment options, and continues with at home active stretching/exercise and modicfications. Given location of pain and exam findings, patient is a candidate for left sacroiliac joint injection, which we willproceed with. Risks and benefits of procedure explained to patient; patient verbalizes understanding. Anatomy of spine discussed in detail with patient in regard to patients condition. Jan,hronic pain (ICD-10 - G89.29) Jan,Trochanteric bursitis, left hip (ICD-10 - M70.62)We discussed treatment options for the patient's persistent left hip/gluteal pain. Patient shows notable tenderness upon exam over the left trochanteric bursa. Given location of pain and exam findings, patient is a candidate for left trochanteric bursa injection, however at this time we will hold off on scheduling this. Jan,therAbove note written by Jcarlos Jovel LPN, Office Workforce Planner. Edited and approved by Dr. Sawyer Greer MD.Medical decision making shows a new problem to me with further workup planned or suggested with thepotential for extensive treatment options that were considered with the most applicable given this patient's situation as noted above. Treatment options considered include a combination of physical therapy approaches, pharmacologic management, and interventional procedures. Those most applicable tothe patient were discussed at this time. Risk [...] prolonged functional impairment requiring constant patient reassessment andhigh- level medical decision making. The amount and complexity of data reviewed is high given that patient labs, radiology reports, and other test were obtained, reviewed and summarized as applicable from the physician portal and/or outside medical records. Pertinent positive and negative findings were considered in medical decision-making. My1login Other 10-11-2022 Evaluation note* Encounter Date Diagnosis Assessment Notes Treatment Notes Treatment Clinical Notes Jan, Inflammation of left sacroiliac joint (ICD-10 - M46.1) Jan,Greater trochanteric bursitis of left hip (ICD-10 - M70.62) Jan,rthropathy of left hip (ICD-10 - M16.12)I independently reviewed the MRI of the lumbar spine and the report. The patient has no canal encroa chment by disc, no significant foraminal encroachment, no [...] likely hip related although mild and I wouldnot be surprised if inflammatory because of gait. I will refer her to pain management Jan,History of fusion of cervical spine (ICD-10 - Z98.1)I independently reviewed the MRI of the cervical spine May 2021. The patient has a fusion and adequate canal above and below the fusion and adequate foramen. In fact I agree with the report thatthe findings in this MRI are improved over [...] be able to perform normal work duties. My1login Other 02-23-2022 NoteChief Complaint consultation for right [...] 06/10/2021 Family History ALS (more content not included)...[facility] Result Comment: Electronically Signed By: KHANG BARTH, Jerry Warren\Date and Time Signed: 06/10/21 16:23 [id number] Hospital Discharge instructions* Instructions* Nemo Calixto APRN [...] [facility] Phone: [phone]) [phone] History of Present illness Narrative* Krysten Villegas [...] Ambulation Assistance: Independent Transfer Assistance: Independent Active Process Helper: Yes 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 Please refer to the procedure report.[employer] Phone: [phone]) 203-913408-03-2021 NoteEXAMINATION: FLUORO FOR SURGICAL PROCEDURES CLINICAL HISTORY: R52 Pain ICD10 COMPARISONS: None available. FINDINGS: Fluoroscopic assistance was provided during ACDF, C5-6 and C6-7 The total radiationtime is 31.9 seconds, radiation dose is 3.62mGy.[employer] Phone: [phone]) [phone] NoteEXAMINATION: FLUORO FOR SURGICAL PROCEDURES CLINICAL HISTORY: R52 Pain ICD10 COMPARISONS: None available. FINDINGS: Fluoroscopic assistance was provided during ACDF, C5-6 and C6-7 The total radiation time is 31.9 seconds, radiation dose is 3.62mGy. IMPRESSION: Intraprocedural fluoroscopic support has been provided. Please refer to the procedure report. Interpreted by: Leandro Spaulding MD Signed by: Leandro Spaulding MD 11/18/20 Final resultWest [facility] HospitalEvaluation + Plan note Future Appointments Appointment Date:07/24/2021 01:20:00 PM Scheduled Provider:Jerry QUIÑONEZ MD Location:[facility] Appointment Type: Post Op 15 General Surgery [facility] Evaluation note* Diagnosis Cervical spondylosis with myelopathy Cervical stenosis of spine Spinal stenosis in cervical region Cervical radiculopathy Brachial neuritis or radiculitis nos documented in this encounter [employer] Work Phone: evaluation note* Diagnosis Post-op pain- Primary Other acute postoperative pain Pain Generalized pain Muscle spasm Spasm of muscle Cervical cord compression with myelopathy (HCC) Unspecified disease of spinal cord documented in this encounter [employer] Work Phone: evaluation note* Diagnosis Pain Generalized pain documented in this encounter [employer] Phone: evaldkanhd noteNo InformationNort [employer] Other Evaluation noteNo assessment information available [facility] Work Phone: Evaluation note* Diagnosis Onset Date Resolution Status Aftercare following left hip joint repla cement surgery acute [facility] Work Phone: Evaluation note* Diagnosis Well woman [...] in [facility]* Diagnosis Follow-up encounter involving medication Encounter for weight management Hormone imbalance documented in this encounter [facility] Healthcare[facility] general Narrative - Reported* Type Description Date Medical History Arthritis Medical Historyhigh cholesterolMedical Historymigraine headacheMedical History chronic depressionMedical HistoryanxietySurgical HistoryC sectionSurgical Historyhernia repairSurgical HistoryhysterectomySurgical Historyneck biopsy Hospitalization Historysee surgical hx My1login Other History general Narrative - Reported* Type Description Date Medical History Arthritis Medical Historyhigh cholesterolMedical Historymigraine headacheMedical History chronic depressionMedical HistoryanxietySurgical HistoryC sectionSurgical Historyhernia repairSurgical HistoryhysterectomySurgical Historyne biopsy Surgical RysuylcIZMQ03/16/2023Hospitalization Historysee surgical My1login Other Hospital course Narrative No data available for this section General Surgery [facility] Hospital Discharge instructions* Attachments The following attachments cannot be sent through Care Everywhere. * Sedation: General Info (Kinyarwanda) documented [facility] this [facility] Work Phone: Hospital Discharge instructions No data available for this section General Surgery [facility] Discharge instructions Additional Instructions Joint Replacement Discharge Instructions Your safety during your recovery process is important to us. Please seek immediate emergency care if you have sudden chest pain or shortness of breath. Additionally, please call our office at [phone] should any of the following occur: wound [...] over time or it could last forever. ALYSSA hose (stockinette): Wear them for 4 weeks [...] to walk without your walker and your ocular care aide until the therapist checks you the following [...] and/or laxatives as directed. You may take jzat-gqk-pqplybi Benadryl if itching occurs without a rash or hives. Icing and elevation will help relieve pain as well, do not underestimate the power of ice and elevation. We do recommend that you stop taking narcotic pain medications by 4-6 weeks after surgery and if necessary, continue to use anti-inflammatory medications such as Mobic (meloxicam), Celebrex (celecoxib), or an zmkr-dvd-rnzcdjg medication (Aleve, Motrin, Ibuprofen, etc). Driving an [...] feel free to call our office at [phone]. You are a priority of ours and we will not be upset with you if you call. We would much rather you call to confirm aspects of your recovery process as opposed to possibly hindering your recovery with inappropriate care. We are committed to providing you with the best care possible. Edison Veronica II, MD Updated 07/02/2022[facility] Work Phone: Reason for referral (narrative)No reason for referral information availableHolzer Health System Work Phone: Reason for Referral StatusReasonSpecialtyDiagnoses / ProceduresReferred By ContactReferred To ContactClosedRadiology Diagnoses Cervical spondylosis with myelopathy Cervical stenosis of spine Cervical radiculopathy Procedures MRI CERVICAL SPINE WO CONTRAST Mejia Griffin MD [address] [facility] [address] [place] [address] StatusReasonSpecialtyDiagnoses / ProceduresReferred By ContactReferred To ContactClosedRadiology Diagnoses Pain Procedures Fluoro For Surgical Procedures Mejia Griffin MD [address] [facility] [address] [place] [address] Reason *Waiting for appt Evaluate and Treat Sacroiliac and Trochanteric Bursitis L Hip Diagnosis 1 Inflammation of left sacroiliac joint (M46.1) Diagnosis 2 Greater trochanteric bursitis of left hip (M70.62) Referral Organization [facility] Ne urosurgery Referring Provider First Name Santiago Referring Provider Last Name Jerome Referring Provider Specialty Neurologica l Surgery Referred Organization [facility] Pain Managemen t Bone [place] Referred Provider Sawyer Greer Referred Address [address] [facility] [place],[address] Referred Provider Specialty Pain Medicin e Referral Priority Routine General Notes Nisa Zelaya 022 10:44:35 AM >Received today and sent P2P Reason severe left hip/ helen in/ thigh pain Diagnosis 1 Osteoarthritis of le ft hip (M16.12) Referral Organization [facility] Pain Managemen t Bone [place] Referring Provider First Name Sawyer Referring Provider Last Name Zoey Referring Provider Specialty Pain Medici ne Referred Organization [facility] Ortho pedics Referred Provider Edison Veronica II Referred Address [address] [facility] [place],[address] Referred Provider Specialty Orthopedic S urgery Referral Priority Routine Summary Purpose Family History Relationship Condition Age at Onset Recorded Date/T maddison father Motor neuron disease Unknown HypertensionUnknownHyperlipidemiaUnknown Advance Directives Code StatusDate ActivatedDate InactivatedCommentsFull Code11/18/2020 5:48 PMCode StatusDate ActivatedDate InactivatedCommentsFull Code11/18/2020 5:48 PM11/19/2020 6:17 PM Advance Directive Response Recorded Date/ [...] YEAR Z47.1 - Aftercare following joint replacement surgReason for VisitAftercare following left hip joint replacement surgery Chief Complaint Admit Date Thyroid Nodules October 25, 2024 7:57 am Additional Source Comments Reason for Visit (unrecogniz ed section and content) StatusReasonSpecialtyDiagnoses / ProceduresReferred By ContactReferred To ContactClosedRadiology Diagnoses Cervical spondylosis with myelopathy Cervical stenosis of spine Cervical radiculopathy Procedures MRI CERVICAL SPINE WO CONTRAST Mejia Griffin MD [address] [facility] [address] [place] [address] StatusReasonSpecialtyDiagnoses / ProceduresReferred By ContactReferred To Contact Diagnoses Cervical stenosis (uterine cervix) [...] LAMINOPLASTY SPANNING FROM C3-4-5-6/ 2 HRS/ 1 C- ARM. NUVASIVE/ S.S.E.P, PAT AT [facility] Mejia Griffin MD [address] [facility] [address] [place] [address] [facility] ReasonCommentsGynecologic ExamReasonCommentsFollow-upPt present today for a f/up visit for medication Estrace.ReasonCommentshormone replacementReasonComments Follow-upWeight ManagementReasonCommentsFollow-up INFORMATION SOURCE (unrecogn ized section and content) DATE CREATED AUTHOR 11/09/2020 [facility] DATE CREATED AUTHOR AUTHOR'S ORGANIZ ATION 11/22/2020 [facility] DATE CREATED AUTHOR AUTHOR'S ORGANIZ ATION 08/16/2021 [facility] DATE CREATED AUTHOR AUTHOR'S ORGANIZ ATION 09/24/2022 [facility] DATE CREATED AUTHOR AUTHOR'S ORGANIZ ATION 10/29/2024 [facility] Ordered Prescriptions (unrec ognized section and content) PrescriptionSigDispensedRefillsStart DateEnd Date sennosides-docusate sodium (SENOKOT-S) 8.6-50 MG tablet Take 1 tablet by mouth 2 times daily for 10 days 20 tablet / cephALEXin (KEFLEX) 500 MG capsule Take 1 capsule by mouth every 8 hours for 20 doses 20 capsule /02/2021 diazePAM (VALIUM) 5 MG tablet Indications:Muscle spasmTake 1 tablet by mouth every 6 hours as needed (Muscle spasms) for up to 5 days. 20 tablet /12/2020 oxyCODONE-acetaminophen (PERCOCET) 7.5-325 MG per tablet Indications:Post-op painTake 1 tablet by mouth every 4 hours as needed for Pain for up to 41 days. 28 tablet / Scheduled Active and Recently Administ ered Medications (unrecognized section and content) Medication Order// atorvastatin (LIPITOR) tablet 10 mg 10 mg, Oral, NIGHTLY, First dose on Tue11/18/20 at 2100, Substituted for Simvastatin (ZOCOR). * 2128 (Given - Provider: Ekaterina Stone LPN) * 2100 (Due) ceFAZolin (ANCEF) 2000 mg in dextrose 5 % 100 mL IVPB (COMPLETED) 2,000 mg, Intravenous, MEAT CARVER TO O.R., 1 dose, On Tue11/18/20 at 0900, Pre-op (day of surgery) * 1044 (Given - Provider: KATYA Dash CRNA) * 1415 (Given - Provider: KATYA Dash CRNA) ceFAZolin (ANCEF) 2000 mg in dextrose 5 % 100 mL IVPB 2,000 mg, Intravenous, EVERY 8 HOURS, 3 doses, First dose on Tue11/18/20 at 1815, Last dose on Tue11/19/20 at 1200, Post-op * 1932 (Not Given - Provider: Ekaterina Stone LPN - Reason: Other) * 0407 (New Bag - Provider: Ekaterina Stone LPN) * 0437 (Stopped - Provider: Ekaterina Stone LPN) * 1307 (New Bag - Provider: Ro Cardona RN) * 1457 (Stopped - Provider: Ro Cardona RN) cephALEXin (KEFLEX) capsule 500 mg 500 mg, Oral, EVERY 8 HOURS SCHEDULED (3 times per day), First dose on Tue11/19/20 at 0600, For 20 doses * 0642 (Given - Provider: Ekaterina Stone LPN) * 1307 (Given - Provider: Ro Cardona, DEV) * 2200 (Due) losartan (COZAAR) tablet 25 mg 25 mg, Oral, DAILY, First dose on Tue11/18/20 at 1815, Substituted for Irbesartan (AVAPRO). * 1800 (Given - Provider: Wolf Coppola RN) * 0829 (Given - Provider: Ro Cardona, DEV) polyethylene glycol (GLYCOLAX) packet 17 g 17 g, Oral, DAILY, First dose on Tue11/18/20 at 1815, Post-op * 1800 (Given - Provider: Wolf Coppola RN) * 0829 (Given - Provider: Ro Cardona, DEV) sennosides-docusate sodium (SENOKOT-S) 8.6-50 MG tablet 1 tablet 1 tablet, Oral, 2 TIMES DAILY, First dose on Tue11/18/20 at 2100, Post-op * 2129 (Given - Provider: Ekaterina Stone LPN) * 0829 (Given - Provider: Ro Cardona, DEV) * 2100 (Due) sodium chloride flush 0.9 % injection 5-40 mL 5-40 mL, Intravenous, EVERY 12 HOURS SCHEDULED (2 times per day), First dose on Tue11/18/20 at 2100,For Line Patency: Peripheral IV = 5 mL; Midline or Central Line = 10 mL/lumen. If following IV pushmedication, administer flush at same rate as the IV push. Flush volume is determined by type of infusion therapy being given. For non-viscous solutions use: Peripheral IV = 5 mL Midline or Central Line = 10 mL/lumen For viscous solutions (i.e. blood components, parenteral nutrition, contrast media,or after obtaining blood sample) use: Peripheral IV = 10 mL Midline or Central Line = 20 mL/lumen, Post-op * 2100 (Not Given - Provider: Ekaterina Stone LPN - Reason: IV Fluid Infusing) * 1048 (Not Given - Provider: Ro Cardona RN - Reason: IV Fluid Infusing) * 2100 (Due) Medication Order// dextrose 5 % and 0.45 % sodium chloride infusion Intravenous, at 100 mL/hr, CONTINUOUS, Starting on Tue11/18/20 at 1815, Post-op * 1759 (New Bag - Provider: Wolf Coppola RN) * 0407 (New Bag - Provider: Ekaterina Stone LPN) lactated ringers infusion (CANCELED) Intravenous, at 50 mL/hr, CONTINUOUS, Starting on Tue11/18/20 at 0900, Pre-op (day of surgery) * 0944 (New Bag - Provider: Gabriela Evangelista RN) * 1028 (Paused - Provider: Mejia Grififn MD - Comment: Switch to gravity) * 1029 (New Bag - Provider: Mejia Griffin MD) * 1113 (Canceled Entry - Provider: KTAYA Dash CRNA - Comment: Switch to gravity) * 1114 (Canceled Entry - Provider: KATYA Dash CRNA) * 1447 (Stopped - Provider: KATYA Dash CRNA) * 1544 (New Bag - Provider: Juliane Alonso, DEV) Medication Order// 0.9 % sodium chloride infusion 25 mL, [...] spasms, Starting on Tue11/18/20 at 1633, Post-op * 1759 (Given - Provider: Wolf Coppola RN) fentaNYL (SUBLIMAZE) injection 50 mcg (CANCELED) 50 mcg, Intravenous, EVERY 10 MIN PRN, Pain Moderate (4-6), Starting on Tue11/18/20 at 0810, For 4 doses, Phase I - Initial therapy for moderate pain., PACU only * 1452 (Given - Provider: Fallon Garcia RN) * 1513 (Given - Provider: Fallon Garcia RN) gelatin adsorbable (GELFOAM) sponge (CANCELED) PRN, Starting on Tue11/18/20 at 1117, Intra-op * 1117 (Given - Provider: Mejia Griffin MD - Comment: prn) HYDROmorphone (DILAUDID) injection 0.5 mg (CANCELED) 0.5 mg, Intravenous, EVERY 10 MIN PRN, Pain Severe (7-10), Starting on Tue11/18/20 at 0810, For 4 doses, Phase I - Initial therapy for severe pain., PACU only * 1543 (Given - Provider: Juliane Alonso RN) * 1636 (Given - Provider: Juliane Alonso RN) HYDROmorphone (DILAUDID) injection 0.5 mg 0.5 mg, Intravenous, EVERY 4 HOURS PRN, Pain Moderate (4-6), Starting on Tue11/18/20 at 1747, If oral and IV narcotics ordered, use oral first and only use IV if oral is ineffective or cannot take oral. Do Not give oral and IV within 1 hour of each other unless specifically ordered. * 2144 (Given - Provider: Natalee Salcido RN) * 0423 (Given - Provider: Natalee Salcido RN) [...] mg from all sources in 24 hours. * 1800 (Given - Provider: Wolf Coppola, DEV) * 0151 (Given - Provider: Ekaterina Stone LPN) * 0829 (Given - Provider: Ro Cardona, DEV) * 1459 (Given - Provider: Ro Cardona, DEV) promethazine (PHENERGAN) tablet 12.5 mg(Linked Group 1) 12.5 mg, Oral, EVERY 6 HOURS PRN, Nausea, Vomiting, Starting on Tue11/18/20 at 1747, Post-op sodium chloride 0.9 % 1,000 mL with gentamicin (GARAMYCIN) 80 mg (CANCELED) PRN, Starting on Tue11/18/20 at 1117, Intra-op * 1117 (Given - Provider: Mejia Griffin MD - Comment: prn for irrigation) sodium chloride 0.9 % irrigation (COMPLETED) CONTINUOUS PRN, Starting on Tue11/18/20 at 1117, Intra-op * 1117 (New Bag - Provider: Mejia Griffin MD - Comment: prn for bipolar) sodium chloride flush 0.9 % injection 5-40 mL 5-40 mL, Intravenous, PRN, Line Care, Starting on Tue11/18/20 at 1747, After every IV line use, Post-op thrombin kit (CANCELED) PRN, Starting on Tue11/18/20 at 1117, Intra-op * 1117 (Given - Provider: Mejia Griffin MD - Comment: prn) Order Group 1: promethazine (PHENERGAN) tablet 12.5 [...] content) Team Status: Active Member Role Status Jesus Garza MD Primary Care Provider Active Team Status: Inactive Member Role Status Jesus Garza MD Primary Care Provider Active Ileana Goodrich ProviderActive Team Status: Inactive Member Role Status Jesus Garza MD Primary Care Provider Active Ileana Servin II ProviderActive Team Status: Inactive Member Role Status Jesus Garza MD Primary Care Provider Active Start: February 02, 2024 End: February 01Ileana Escobar II ProviderActiveStart: February 02, 2024 End: February 02, 2024 Team Status: Active Member Role Status Jesus Garza MD Primary Care Provider Active Start: February 02, 2024 Ileana Servin II ProviderActiveStart: February 02, 2024 Team MemberRelationshipSpecialtyStart DateEnd Tj Lino MD [address] [place] [address] PCP - [facility] Medicine05/30/24Team MemberRelationshipSpecialtyStart DateEnd Tj Lino MD [address] [place] [address] PCP - [facility] Medicine05/30/24 Team Status: Inactive Member Role Status Jesus Garza MD Primary Care Provider Active Start: October 25, 2024 End: October 25, 2024DoIleana Cox ProviderActiveStart: October 25, 2024 End: October 25, 2024Team MemberRelationshipSpecialtyStart DateEnd Tj Lino MD [address] [place] [address] PCP - [facility] Medicine05/30/24Team MemberRelationshipSpecialtyStart DateEnd Date Tj Garza MD [address] [facility] [place] [address] PCP - [facility]05/30/24Team MemberRelationshipSpecialtyStart DateEnd Date Tj Garza MD [address] [facility] [place] [address] PCP - [facility]05/30/24Team MemberRelationshipSpecialtyStart DateEnd Date Tj Garza MD [address] [facility] [place] [address] PCP - [facility]05/30/24Te MemberRelationshipSpecialtyStart DateEnd Date Tj Garza MD [address] [facility] [place] [address] [facility] - [facility]05/30/24Te MemberRelationshipSpecialtyStart DateEnd Date jT Garza MD [address] [facility] [place] [address] PCP - [facility]05/30/24 Goals (unrecognized section and content) Goals may [...] BE BASED ON THE PRIMARY CLINICAL RECORDS. [facility] provides no warranty or guarantee of the accuracy or completeness of information in this document.
--- OUTSIDE RECORDS SUMMARY | 2025-02-26 07:49 | XMS_ITS | Encounter Summary ---
Author Organization [facility] Address [address] [facility] [place] [address] Care Team Providers Care Director Learning Name Role Phone Tj Javier MD Primary Care Provider [phone] Encounter Details DateTypeDepartmentCare Team (Latest Contact Info)Qlqcpfgpoqb36/13/2025linisync Result Encounter [facility] External Department Unsolicited Ze Pan, [address] [facility] [address] [place], [facility]11 Social History Tobacco UseTypesPacks/DayYears UsedDateSmoking Tobacco: Never Assessed CommentsNoSex and Gender InformationValueDate RecordedSex Assigned at BirthNot on fileLegal JmcBshwjv29/15/2023 8:05 PM EDTGender IdentityNot on fileSexual OrientationNot on filedocumented as of this encounter Plan of Treatment DateTypeDepartmentCare Team (Latest Contact Info)Nnacflbbgrg20/17/2025 3:50 PM ESTOffice Visit MELIDA EPPERSON [address] [place] [address] [place] [address] Paola Allen PA [address] [facility] [address] [place], [place] [address] 03/19/2025 8:30 AM ESTOffice Visit NOMAndry EPPERSON [address] [place] [address] [place] [address] Ze Pan, [address] [facility] [address] [place], [facility]11 documented as of this encounter Procedures Procedure NamePriorityDate/TimeAssociated DiagnosisCommentsMM TOMOSYNTHESIS SCREENING BI04/30/2024 9:05 AM EST documented in this encounter Results * MM TOMOSYNTHESIS SCREENING (04/30/2024 9:05 AM EST)Anatomical Region LateralityModalityOtherSpecimen (Source)Anatomical Location / Laterality Collection Method / VolumeCollection TimeReceived Time04/30/2024 9:05 AM EST Narrative 04/30/2024 9:07 AM EST [facility] ?[address] ? [place] [address] ? Mammography Report ? Signed ? Patient: ROOT,ANA M ?MR#: [id number] ?? : 1970 ?Acct:[id number] ?? Age/Sex: 53 / F ?ADM Date: 04/30/24 ?? Loc: MAMMO ? Attending Dr: Ze Pan D.O. ? Ordering Physician: Ze Pan D.O. ?Results: ? Date of Service: 04/30/24 ?Follow Up: ? Procedure(s): MM tomosynthesis screening BI ?? Accession Number(s): [id number] ? cc: Ze Pan D.O.; Tj Javier M.D. ? Patient Name: ? ANA ROOT ? MR#: [id number] ? : 1970 ? Exam Date: 04/30/2024 ?? Ordering Doctor: DR Ze Pan . ? RADIOLOGY REPORT ? PROCEDURE: ? MM TOMOSYNTHESIS SCREENING BI ? COMPARISON: ? MG MAMM SCREEN 3D ADALBERTO CAD, 11/17/2020. ??MG MAMM SCREEN 3D ADALBERTO ?? CAD, 09/09/2022. ? INDICATIONS: ? screening for malignant neoplasm of breast ? Calculator Name ? NCI Breast Cancer Risk Assessment Tool ?? 5 Year Breast Cancer Risk ? 1.00% ?? Lifetime Breast Cancer Risk ? 7.20% ?? Personal Breast Cancer ?No ?? Personal Ovarian Cancer ? No ?? Treatments ? None ?? Family Cancers ? Son with aml cancer at age 25. ? LOCATION: ? [facility] ? BREAST COMPOSITION: ? The breasts are heterogeneously dense,which may ?? obscure small masses. ? FINDINGS: ? DIAGNOSTIC CATEGORY 2--BENIGN FINDING. NO CHANGE FROM COMPARISON. ? Scattered benign-appearing nodules are present. ??Scattered benign-appearing ?? calcifications are present. ??Scattered benign-appearing lymph nodes are ?? present. ? RIGHT BREAST: ??No significant suspicious finding. ? LEFT BREAST: ??No significant suspicious finding. ? RECOMMENDATIONS: ? ROUTINE MAMMOGRAM AND CLINICAL EVALUATION IN 12 MONTHS. ? PLEASE NOTE: ??A NORMAL MAMMOGRAM DOES NOT EXCLUDE THE POSSIBILITY OF BREAST ?? CANCER. ??A CLINICALLY SUSPICIOUS PALPABLE LUMP SHOULD BE BIOPSIED. ? Dictated by: Clifton Ponce MD on 04/30/2024 at 09:02 ? Approved by: Clifton Ponce MD on 04/30/2024 at 09:05 ? Dictated By: ?Clifton Ponce M.D. ? Signed By: ?04/30/24 0907 ? DD/ 09 ? TD/TT: ? Private Duty Aide: Procedure Note Radiology, Radiologist, MD - 04/30/[address] [address] Mammography Report Signed Patient: ANA PALMER MMR#: [id number] : 1970Acct:[id number] Age/Sex: 53 / FADM Date: 04/30/24 Loc: MAMMO Attending Dr: Ze Pan D.O. Ordering Physician: Ze Pan D.O.Results: Date of Service: 04/30/24Follow Up: Procedure(s): MM tomosynthesis screening BI Accession Number(s): [id number] cc: Ze Pan D.O.; Tj Javier M.D. Patient Name: ANA PALMER MR#: [id number] : 1970 Exam Date: 04/30/2024 Ordering Doctor: [...] aml cancer at age 24. LOCATION: [facility] BREAST COMPOSITION: The breasts are heterogeneously [...] Ponce M.D. Signed By:04/30/24906 DD/ 4 TD/TT: Private Duty Aide: Authorizing ProviderResult TypeResult StatusCoredelvin Pan DOCLINISYNC IMAGINGFinal Result documented in this encounter Visit Diagnoses Not on filedocumented in this encounter Care Teams Team MemberRelationshipSpecialtyStart DateEnd Date Tj Javier MD [address] [place] [address] PCP - GeneralFamily Medicine05/30/24documented as of this encounter
--- OUTSIDE RECORDS SUMMARY | 2025-02-26 07:49 | XMS_ITS | Clinical Summary ---
Author Organization [facility] Address [address] [place] [address] Care Team Providers Care Contracts Representative Name Role Phone Tj Javier MD Primary Care Provider [phone] Allergies Active AllergyReactionsCriticalityNoted DateCommentsAttends Briefs SmallItching 10/25/20247789CfvazrntljytiOhzqp61/15/2021 Medications MedicationSigDispense QuantityRefillsLast FilledStart DateEnd DateStatus simvastatin (Zocor) 20 MG tablet Take 20 mg by mouth at bedtimeActive irbesartan (Avapro) 150 MG tablet Take 150 mg by mouth DailyActive lansoprazole (Prevacid) [address] capsule Take 30 mg by mouth if needed (acid reflux)Active LANSOPRAZOLE PO Take 30 mg by mouthActive acetaminophen (Tylenol) 500 MG tablet Take 1,000 mg by mouth every 6 (six) hours if neededActive SUMAtriptan (Imitrex) 100 MG tablet Take 100 mg by mouth 1 (one) time if neededActive estradiol (Estrace) 0.1 MG/GM vaginal cream 5Active phentermine (Adipex-P) 37.5 MG tablet Indications:Encounter for weight managementTake 1 tablet (37.5 mg) by mouth in the morning. Take before meals. 30 tablet 5Active phentermine (Adipex-P) 37.5 MG tablet Indications:Encounter for weight managementTake 1 tablet (37.5 mg) by mouth in the morning. Take before meals. 30 tablet /5Active estradiol (Climara) 0.1 MG/24HR Indications:Follow-up encounter involving medication,Encounter for weight management,Hormone imbalancePlace 1 patch over 7 days on the skin 1 (one) time per week 4 patch 1110//757825/5Active estradiol (Climara) 0.05 MG/24HR Indications:Postmenopausal HRT (hormone replacement therapy),Hot flashes,Night sweatsPlace 1 patch over 7 days on the skin 1 (one) time per week 12 patch 308//520359/Discontinued(Therapy completed) estradiol (Climara) 0.075 MG/24HR Indications:Encounter for weight management,Postmenopausal HRT (hormone replacement therapy),Hot flashes,Night sweats,Dyspareunia in femalePlace 1 patch over 7 days on the skin 1 (one) time per week 4 patch 309/306765Discontinued(Therapy completed) Encounters DateTypeDepartmentCare QkzsNwqfyksgqiv65/20/2025 3:20 PM EDTOffice Visit MELIDA [facility] [place] [address] Ze Pan DO Follow-up encounter involving medication; Encounter for weight management; Hormone ljtiiyedc47/20/2025amboo flowsheet NOMAndry EPPERSON [address] [place], [place] [address] [address] Ze Pan DO 01/07/2025 3:50 PM EDTOffice Visit NOMAndry Gonazles [facility] [place] [address] Ze Pan DO Encounter for weight management; Postmenopausal HRT (hormone replacement therapy); Hot flashes; Night sweats; Dyspareunia in ngcaqv2601/07/2025amboo flowsheet NOMAndry Gonzales [facility] [place] [address] Ze Pan DO 12/05/2024 3:20 PM EDTOffice Visit NOMAndry EPPERSON [address] [place] [address] Ze Pan DO Postmenopausal HRT (hormone replacement therapy); Hot flashes; Night iiynqs9112/05/2024amboo flowsheet MELIDA EPPERSON [address] [facility] [place] [address] Ze Pan DO from Last 3 Months Social History Tobacco UseTypesPacks/DayYears UsedDateSmoking Tobacco: Never Assessed CommentsNoSex and Gender InformationValueDate RecordedSex Assigned at BirthNot on fileLegal LuwEyjyqz12/15/2023 8:05 PM EDTGender IdentityNot on fileSexual OrientationNot on file Last Filed Vital Signs Vital SignReadingTime TakenCommentsBlood Hpffgors659/9002/04/2025 3:43 PM EDT Pulse--Temperature--Respiratory Rate--Oxygen Saturation--Inhaled Oxygen Concentration--Uwfkvu07.7 kg (178 lb)02/04/2025 3:43 PM ZJDFuxsmc262.6 cm (5' 4 )01/07/2025 4:09 PM EDTBody Mass Index30.55001/07/2025 4:09 PM EDT Plan of Treatment DateTypeDepartmentCare Team (Latest Contact Info)Swdrwuyilmc48/17/2025 3:50 PM ESTOffice Visit MELIDA EPPERSON [address] [place] [address] [place] [address] Paola Allen PA [address] [facility] [address] [place], [facility]11 03/19/2025 8:30 AM ESTOffice Visit MELIDA EPPERSON [address] [place] [address] [place] [address] Ze Pan DO [address] [facility] [place] [address] Insurance Care Teams Team MemberRelationshipSpecialtyStart DateEnd Date Tj Javier MD [address] [place] [address] PCP - GeneralFamily Medicine05/30/24
--- OUTSIDE RECORDS SUMMARY | 2025-02-26 07:49 | XMS_ITS | Encounter Summary ---
Author Organization [facility] Address [address] [facility] [place] [address] Care Team Providers Care Author Name Role Phone Tj Javier MD Primary Care Provider [phone] Encounter Details DateTypeDepartmentCare Team (Latest Contact Info)Dolfusdbngh34/13/2025linisync Result Encounter [facility]S External Department Unsolicited Usman Pan, [address] [facility] [address] [place], [facility]11 Social History Tobacco UseTypesPacks/DayYears UsedDateSmoking Tobacco: Never Assessed CommentsNoSex and Gender InformationValueDate RecordedSex Assigned at BirthNot on fileLegal RivDkfght82/15/2023 8:05 PM EDTGender IdentityNot on fileSexual OrientationNot on filedocumented as of this encounter Plan of Treatment DateTypeDepartmentCare Team (Latest Contact Info)Creozzavixn17/17/2025 3:50 PM ESTOffice Visit MELIDA EPPERSON [address] [place] [address] [place] [address] Paola Allen PA [address] [facility] [address] [facility] [address] [place], [place] [address] 03/19/2025 8:30 AM ESTOffice Visit NOMAndry EPPERSON [address] [place] [address] [place] [address] Usman Pan, [address] [facility] [address] [place], [facility]11 documented as of this encounter Procedures Procedure NamePriorityDate/TimeAssociated DiagnosisCommentsXR DEXA AXIAL OAUIREUR57/13/2025 8:37 AM EST documented in this encounter Results * XR DEXA AXIAL SKELETON (04/30/2024 8:37 AM EST)Anatomical RegionLaterality ModalityOtherSpecimen (Source)Anatomical Location / LateralityCollection Method / VolumeCollection TimeReceived Time04/30/2024 8:37 AM EST Narrative 04/30/2024 8:39 AM EST [facility] ?[address] ? [place] [address] ?XRay Report ? Signed ? Patient: ROOT,ANA M ?MR#: [id number] ?? : 1970 ?Acct:[id number] ?? Age/Sex: 53 / F ?ADM Date: 04/30/24 ?? Loc: MAMMO ? Attending Dr: Usman Pan D.O. ? Ordering Physician: Usman Pan D.O. ?? Date of Service: 04/30/24 ?? Procedure(s): XR DEXA axial skeleton ?? Accession Number(s): [id number] ? cc: Usman Pan D.O.; Tj Javier M.D. ? [facility] ? [address] [facility] ? [place] [address] ? Patient Name: ?? ANA M ROOT ? [facility]N: [facility]:[id number] ? date: 1970 ?Sex: F ?? Assigned Patient Location: MAMMO ?? Current Patient Location: MAMMO ?? Accession/Order Number: [id number] ?? Exam Date: 04/30/2024 ??07:35 ?Report Date: 04/30/2024 ??08:37 ? At the request of: ?? USMAN ??VIVIANE ? Procedure: ??XR DEXA axial skeleton ? EXAMINATION: XR DEXA axial skeleton, 04/30/2024 7:35 AM EST ? HISTORY: well women and post hysterectomy ? COMPARISON: None. ? TECHNIQUE: Dual-energy X-ray absorptiometry (DEXA) bone density study ?? performed ?? for the axial skeleton. ? FINDINGS: ? Bone mineral density of the AP spine L1-L4 measures 1.163 g/sq cm. T score ?? -0.1. Normal ? Lowest bone density is in the right femoral neck measuring 0.773 g/sq cm. T ?? score -1.9. Osteopenia ? XR/XR DEXA axial skeleton ?? IMPRESSION: ? Osteopenia. Moderate fracture risk ? Pharmacologic treatment recommendations ?? * No uniform recommendation applies to all patients. Management plans must be ?? individualized. ?? * Consider initiating pharmacologic treatment in postmenopausal women and men ?? >= 50 years of age who have the following: Primary fracture prevention: ?? * T-score <= - 2.5 at the femoral neck, total hip, lumbar spine, 33% radius (some uncertainty with existing data) by DXA. ?? * Low bone mass (osteopenia: T-score between - 1.0 and - 2.5) at the femoral ?? neck or total hip by DXA with a 10-year hip fracture risk >= 3% or a 10-year major osteoporosis-related fracture risk >= 20% (i.e., clinical vertebral, hip, ?? forearm, or proximal humerus) based on the US-adapted FRAXregistered model. ?? Secondary fracture prevention: ?? * Fracture of the hip or vertebra regardless of BMD [4, 5]. ?? * Fracture of proximal humerus, pelvis, or distal forearm in persons with low ?? bone mass (osteopenia: T-score between - 1.0 and - 2.5). The decision to treat ? should be individualized in persons with a fracture of the proximal humerus, ?? pelvis, or distal forearm who do not have osteopenia or low BMD [12, 13]. ?? Prerna MS, Stephanie SL, Dayana KL, Delio EM, Rahel KG, AJ, Chandana ?? ES. ?? The clinician's guide to prevention and treatment of osteoporosis. Osteoporos ?? Int. 2022 Oct;33(10):7775-0550. doi: 10.1007/y15636-111-42543-a. Ep2021 Apr ? 28. Erratum in: Osteoporos Int. 2021Nov 12;: PMID: 90388313; PMCID: ?? [id number]. ? Electronically authenticated by: ALE ??BUZZ ?? Date: 04/30/2024 ??08:37 ? Dictated By: ?Ale Gerber M.D. ? Signed By: ?04/30/24 0839 ? DD/ 0837 ? TD/TT: ? Nitrocellulose Operator: Procedure Note Radiology, Radiologist, - 04/30/2024 The [place] [id number] XRay Report Signed Patient: ANA PALMER MMR#: [id number] : 1970Acct:[id number] Age/Sex: 53 / FADM Date: 04/30/24 Loc: MAMMO Attending Dr: Usman Pan D.O. Ordering Physician: Usman Pan D.O. Date of Service: 04/30/24 Procedure(s): XR DEXA axial skeleton Accession Number(s): [id number] cc: Usman Pan D.O.; Tj Javier M.D. The [address] [address] Patient Name: ANA PALMER MRN: [facility]:[id number] date: 1970 Sex: F Assigned Patient Location: [facility]MO [facility] Access[facility]Order Number: [id number] Exam Date: 04/30/2024 07:35 Report Date: 04/30/2024 [...] 10-year hip fracture risk >= 3% or w95-uyhg major osteoporosis-related fracture risk >= 20% (i.e., [...] to prevention and treatment of osteoporosis.Osteoporos Int. 2021;33(10):3469-5529. doi: 10.1007/s56280-380-53998-j. Ep. Erratum in: Osteoporos Int. 2021Nov 12;: PMID: 39784130; PMCID: [id number]. Electronically authenticated by: ALE GERBER Date: 04/30/2024 08:37 Dictated By: Ale Gerber M.D. Signed By:04/30/24 0839 DD/ 0837 TD/TT: Nitrocellulose Operator: Authorizing ProviderResult TypeResult StatusCorey Viviane DOCLINISYNC IMAGINGFinal Result documented in this encounter Visit Diagnoses Not on filedocumented in this encounter Care Teams Team MemberRelationshipSpecialtyStart DateEnd Date Tj Javier MD [address] [place] [address] PCP - GeneralFamily Medicine05/30/24documented as of this encounter
--- OUTSIDE RECORDS SUMMARY | 2025-02-26 07:49 | XMS_ITS | Clinical Summary ---
Author Organization [facility] Address [address], [address] [place] [address] Care Team Providers Care Contamination Consultant Name Role Phone Tj Javier MD Primary Care Provider [phone] Allergies Active AllergyReactionsCriticalityNoted AyuaBchphqdpCixzyebvqhxea67/16/2021 Medications MedicationSigDispense QuantityRefillsLast FilledStart DateEnd DateStatus SUMAtriptan (IMITREX) 100 MG tablet Take 100 mg by mouth once as needed for MigraineActive LANSOPRAZOLE PO Take 30 mg by mouthActive simvastatin (ZOCOR) 20 MG tablet Take 20 mg by mouth nightlyActive irbesartan (AVAPRO) 150 MG tablet Take 150 mg by mouth nightlyActive Multiple Vitamins-Minerals (THERAPEUTIC MULTIVITAMIN-MINERALS) tablet Take 1 tablet by mouth dailyActive acetaminophen (TYLENOL) 500 MG tablet Take 1,000 mg by mouth every 6 hours as needed for PainActive gabapentin (NEURONTIN) 300 MG capsule Take 1 capsule by mouth nightly for 30 days. Intended supply: 30 days 30 capsule 02/05/2021ctive Active Problems ProblemNoted DateDiagnosed DateCervical cord compression with myelopathy 11/18/2020 Family History Medical HistoryRelationNameCommentsArthritisFatherHigh Blood PressureFather RelationNameStatusCommentsFather Social History Tobacco UseTypesPacks/DayYears UsedDateSmoking Tobacco: NeverSmokeless Tobacco: NeverOverall Financial Resource Strain (CARDIA)AnswerDate RecordedHow hard is it for you to pay for the very basics like food, housing, medical care, and heating?Not hard at all11/07/2020HQ-2AnswerDate RecordedPHQ-9 Total Score0 07/23/2021Hunger Vital SignAnswerDate RecordedWithin the past 12 months, you worried that your food would run out before you got the money to buymore.Never true11/07/2020Within the past 12 months, the food you bought just didn't last and you didn't have money to get more.Never true11/07/2020CommentsNoSex and Gender InformationValueDate RecordedSex Assigned at BemzdYxjrww78/22/2021 10:10 AM EDTLegal AeqEupqxo53/18/2021 10:27 AM EDTGender IdentityFemale 11/06/2020 10:10 AM EDTSexual PrgyklhhawzCbyzndch51/22/2021 10:10 AM EDT Last Filed Vital Signs Vital SignReadingTime TakenCommentsBlood Nudrpegm657/6410 9:20 AM EDT Nmepg24846 8:27 AM MWYDqkeusjmslj24.1 ??C (96.9 ??F)02/05/2021 9:20 AM EDTRespiratory Tons2071 4:29 AM EDTOxygen Kmpfpbgczn24%11/19/2020 8:27 AM EDTInhaled Oxygen Concentration--Naxkdx43.7 kg (200 lb)02/05/2021 9:20 AM EDT Jzxbuf774.6 cm (5' 4 )02/05/2021 9:20 AM EDTBody Mass Index34.3310 9:20 AM EDT Plan of Treatment Not on file Medical Devices ImplantedTypeAreaManufacturerDevice IdentifierShelf Expiration DateModel / Serial / LotCage Spnl [id number] Lum Lord Intbdy Fus Triad Cc - [id number] Implanted:Qty: 1 on 11/18/2020 by Mejia Ochoa MD at [facility] N/A: Spine Cervical[employer]VAS[employer] INC-[id number] / [id number] / Graft Spnl [id number] Corticocancellous Lord Triad - [id number] Implanted:Qty: 1 on 11/18/2020 by Mejia Ochoa MD at [facility] N/A: Spine Cerv[employer]-[id number] / [id number] / Screw Spnl L7mm Dia2.6mm Lum Lat Mass Leverage Lfs Implanted:Qty: 3 on 11/18/2020 by Mejia Ochoa MD at [facility] N/A: Spine Cerv[employer]-[id number] / / Plate Spnl L42mm Ant Cerv 2 Lev Translational [place] Acp Implanted:Qty: 1 on 11/18/2020 by Mejia Ochoa MD at [facility] N/A: Spine Cerv[employer]-[id number] / / Screw Spnl L13mm Dia4mm Ant Cerv St Melanie Ang Compr [place] Acp Implanted:Qty: 6 on 11/18/2020 by Mejia Ochoa MD at [facility] N/A: Spine Cerv[employer]-[id number] / / Screw Spnl L5mm Dia2.6mm Stubbs Leverage Lfs Implanted:Qty: 3 on 11/18/2020 by Mejia Ochoa MD at [facility] N/A: Spine Cerv[employer]-[id number] / / Plate Spnl Cran Caud Stubbs 9.5mm M Leverage Lfs Implanted:Qty: 3 on 11/18/2020 by Mejia Ochoa MD at [facility] N/A: Spine [employer]erv[employer]-[id number] / / Insurance Advance Directives * Full Code (Latest Code Status on File) Date ActivatedDate InactivatedComments11/18/2020 5:48 PM11/19/2020 6:17 PM Care Teams Team MemberRelationshipSpecialtyStart DateEnd Date Tj Javier MD [address] [place] [address] PCP - GeneralFamily Medicine08/01/20
--- OUTSIDE RECORDS SUMMARY | 2025-02-26 07:49 | XMS_ITS | Patient Health Record ---
Author Organization [facility] in [place] Address [address] [place] [address] Care Team Providers Care Wire Fence Erector Name Role Phone Alexander Javier Primary Care Provider Allergies No Known Allergies Results Component Value Reference Range Notes TSH Reviewed date:08/04/2024 01:11:52 PM Interpretation: Performing Lab: Notes/Report: [facility] , Thyroid Stimulating Hormone <0.007 0.358-3.740 u IU/mL Performing Lab:see noteML - [facility] LBT4 Reviewed date:08/04/2024 01:11:52 PM Interpretation: Performing Lab: Notes/Report: [facility] ,T4 Thyroxine8.504.80-13.90 ug/dLPerforming Lab:see noteML - [facility] LBFREE T3 Reviewed date:08/04/2024 01:11:52 PM Interpretation: Performing Lab: Notes/Report: [facility] ,Free T34.502.18-3.98 pg/mLPerforming Lab:see noteML - [facility] LB XR DEXA axial skeleton Reviewed date:06/06/2024 07:11:53 PM Interpretation: Performing Lab: Notes/Report: Source Facility: [facility]-[address] [place] [address] [address] XRay Report Signed Patient: ANA PALMER MR#: [id number] : 1970 Acct:[id number] Age/Sex: 53 / F ADM Date: 04/30/24 Loc: MAMMO Attending Dr: Usman Pan D.O. Ordering Physician: Usman Pan D.O. Date of Service: 04/30/24 Procedure(s): XR DEXA axial skeleton Accession Number(s): [id number] cc: Usman Pan D.O.; Gina Javier M.D. [place] [id number] Patient Name: ANA PALMER MRN: [facility]:[id number] date: 1970 Sex: F Assigned Patient Location: [facility] Current Patient Location: [facility] Accession/Order Number: [id number] Exam Date: 04/30/2024 07:35 Report Date: 04/30/2024 [...] prevention and treatment of osteoporosis. Osteoporos Int. 2021;33(10):2955-2605. doi: 10.1007/f95947-992-02170-c. Epub 2021Aug 13. Erratum in: Osteoporos Int. 2021Nov 12;: PMID: [id number]; PMCID: [id number]. Electronically authenticated by: ALE GERBER Date: 04/30/2024 08:37 Dictated By: Ale Gerber M.D. Signed By: 04/30/2439 DD/ TD/TT: Bookstore Clerk:MM tomosynthesis screening BI Reviewed date:06/06/2024 07:11:53 PM Interpretation: Performing Lab: Notes/Report: Source Facility: [place] [address] Mammography Report Signed Patient: ANA PALMER MR#: [id number] : 1970 Acct:[id number] Age/Sex: 53 / F ADM Date: 04/30/24 Loc: MAMMO Attending Dr: Usman Pan D.O. Ordering Physician: Usman Pan D.O. Results: Date of Service: 04/30/24 Follow Up: Procedure(s): MM tomosynthesis screening BI Accession Number(s): [id number] cc: Usman Pan D.O.; Gina Javier M.D. Patient Name: ANA PALMER MR#: [id number] : 1970 Exam Date: 04/30/2024 Ordering Doctor: [...] aml cancer at age 24. LOCATION: [facility] BREAST COMPOSITION: The breasts are heterogeneously dense,which [...] Dictated By: Ale Gerber M.D. Signed By: 04/30/2407 DD/ TD/TT: Bookstore Clerk:Rosio NICHOLE HPV,Age Gdln Reviewed date:03/25/2024 06:28:55 PM Interpretation: Performing Lab: Notes/Report: SPATULA-ALONE VAGINA [facility] ,Age Gdln ACOG TestingNote. TESTS RESULT FLAG UNITS REF RANGE LAB Clinician Provided Cytology Information Source.............Vagina No. of containers..01 ThinPrep Vial Age Algo ACOG Darline... 29 FLAG LEGEND: L-Low Normal,H-High Normal,LL-Alert Low,HH-Alert High <-Panic Low,>-Panic High,A-Abnormal,AA-Critical Abnormal Performed at: 01 =[facility] [address] [place] [address] Michelle Rahman MD, IGP, Aptima HPV, rfx 16/18,45Note. TESTS RESULT FLAG UNITS REF RANGE LAB DIAGNOSIS: 02 NEGATIVE FOR INTRAEPITHELIAL LESION OR MALIGNANCY. CELLULAR CHANGES ASSOCIATED WITH ATROPHY ARE PRESENT. THIS SPECIMEN WAS RESCREENED PART OF OUR SSRS DEVELOPER PROGRAM. Specimen adequacy: 02 Satisfactory for evaluation. Performed by: 02 Chanelle Padilla, Electrical Prospecting Engineer ([facility]) QC reviewed by: 02 Simon Wong, Electrical Prospecting Engineer ([facility]) . 02 Note: Note 03 The [...] <-Panic Low,>-Panic High,A-Abnormal,AA-Critical Abnormal Performed at: 02 [facility] [address] [place] [address] Chris Enriquez MD, [address] [address] Michelle Rahman MD, HPV AptimaNegativeNegative This nucleic acid amplification test detects fourteen high- risk HPV types (16,18,31,33,35,39,45,51,52,56,58,59,66,68) without differentiation. Performed at: = - [address] [id number] Commercial Green Retrofit Architect: Michelle Rahman MD, Phone: [phone] Performed at: [facility] [address] [place] [id number] Commercial Green Retrofit Architect: Chris Enriquez MD, Phone: [phone] Performing Lab:see [facility] LBUS THYROID Reviewed date:01/22/2025 04:45:59 PM Interpretation: Performing Lab: Notes/Report: Source Facility: [place] [address] Ultrasound Report Signed Patient: ANA PALMER MR#: [id number] : 1970 Acct:[id number] Age/Sex: 54 / F ADM Date: 01/21/25 Loc: US Attending Dr: Gina Javier M.D. Ordering Physician: Gina Javier M.D. Date of Service: 01/21/25 Procedure(s): US thyroid Accession Number(s): [id number] cc: Gina Javier M.D. [place] [address] Patient Name: ANA PALMER MRN: [id number] date: 1970 Sex: F Assigned Patient Location: US Current Patient Location: US Accession/Order Number: [id number] Exam Date: 01/21/2025 16:48 Report Date: 01/21/2025 22:50 At the request of: GINA JAVIER MD Procedure: US thyroid Thyroid ultrasound Reason [...] Dorado M.D. 01/21/2025 10:50 PM Dictation Location: [place] [address] Electronically authenticated by: [id number] Y Date: 01/21/2025 22:50 Dictated By: Wu Dorado M.D. Signed By: 01/21/252251 DD/ 49 TD/TT: Bookstore Clerk:THYROID ANTIBODIES Reviewed date:08/09/2024 07:13:33 PM Interpretation: Performing Lab: Notes/Report: [facility] ,Thyroid Peroxidase (TPO) Zr415-17 IU/mLThyroglobulin Antibody<1.00.0-0.9 IU/mL Thyroglobulin Antibody measured by Jair [employer]al Methodology It should be noted that the presence of thyroglobulin antibodies may not be pathogenic nor diagnostic, especially at very low levels. The assay setter off has found that four percent of individuals without evidence of thyroid disease or autoimmunity will have positive TgAb levels up to 4 IU/mL. Performed at: [address] [id number] Commercial Green Retrofit Architect: Lane Rivera PhD, Phone: [phone] Performing Lab:[facility] LBMR head/brain wo con Reviewed date:02/03/2025 11:42:21 AM Interpretation: Performing Lab: Notes/Report: Source Facility: [place] [address] Magnetic Resonance Report Signed Patient: ANA PALMER MR#: [id number] : 1970 Acct:[id number] Age/Sex: 54 / F ADM Date: 02/01/25 Loc: MRI Attending Dr: Gina Javier M.D. Ordering Physician: Gina Javier M.D. Date of Service: 02/01/25 Procedure(s): MR head/brain wo con Accession Number(s): [id number] cc: Gina Javier M.D. [place] [address] Patient Name: ANA PALMER MRN: [id number] date: 1970 Sex: F Assigned Patient Location: MRI Current Patient Location: MRI Accession/Order Number: [id number] Exam Date: 02/01/2025 07:05 Report Date: 02/01/2025 08:38 At the request of: GINA JAVIER MD Procedure: MR head/brain wo con EXAMINATION: MRI OF THE BRAIN WITHOUT CONTRAST CLINICAL HISTORY: Chronic right-sided headache with visual changes. Acute Non Recurrent Sinusitis, Bloody Nose COMPARISON: CT 07/29/2018 TECHNIQUE: Multiecho, multiplanar imaging of the brain was performed without enhancement. The ventricles are normal in size and position. There are some scattered foci of increased T2 and FLAIR signal within the periventricular and subcortical white matter. This is nonspecific though the differential could include microvascular disease and demyelination. There are no additional areas of abnormal signal intensity within the supra- or infratentorial brain. No restricted diffusion is identified to suggest a recent ischemic event. There are no extra-axial collections or mass effect. The imaged paranasal sinuses and mastoid air cells are clear. There is mild asymmetric mucosal congestion over the nasal turbinates on the right. MR/MR head/brain wo con IMPRESSION: MINOR NONSPECIFIC WHITE MATTER CHANGES, DESCRIBED. NO OTHER ACUTE INTRACRANIAL FINDINGS. Impression dictated by: Radha Godinez M.D. 02/01/2025 8:38 AM Dictation Location: [place] [address] Electronically authenticated by: [id number] Y Date: 02/01/2025 08:38 Dictated By: Radha Godinez M.D. Signed By: 02/01/25839 DD/ 7 TD/TT: Bookstore Clerk:TSH Reviewed date:09/22/2024 05:30:58 PM Interpretation: Performing Lab: Notes/Report: [facility] ,Thyroid Stimulating Hormone<0.0070.358-3.740 uIU/mLPerforming Lab:see noteML - [facility] LBT4 Reviewed date:09/22/2024 05:30:58 PM Interpretation: Performing Lab: Notes/Report: [facility] ,T4 Thyroxine8.404.80-13.90 ug/dLPerforming Lab:see noteML - [facility] LBFREE T3 Reviewed date:09/22/2024 05:30:58 PM Interpretation: Performing Lab: Notes/Report: [facility] ,Free T34.292.18-3.98 pg/mLPerforming Lab:see noteML - [facility] LB US THYROID Reviewed date:08/08/2024 10:22:55 AM Interpretation: Performing Lab: Notes/Report: Source Facility: [facility]-[address] [place] [address] [place] [address] Ultrasound Report Signed Patient: ANA PALMER MR#: [id number] : 1970 Acct:[id number] Age/Sex: 53 / F ADM Date: 08/07/24 Loc: US Attending Dr: Gina Javier M.D. Ordering Physician: Gina Javier M.D. Date of Service: 08/07/24 Procedure(s): US thyroid Accession Number(s): [id number] cc: Gina Javier M.D. [place] [address] Patient Name: ANA PALMER MRN: [facility]:[id number] date: 1970 Sex: F Assigned Patient Location: US Current Patient Location: US Accession/Order Number: [id number] Exam Date: 08/07/2024 22:17 Report Date: 08/07/2024 22:20 At the request of: GINA JAVIER MD Procedure: US thyroid Thyroid ultrasound Reason [...] Powell Jr., D.O.08/07/2024 10:20 PM Dictation Location: [place] [address] Electronically authenticated by: [id number] Y Date: 08/07/2024 22:20 Dictated By: Aftab Powell M.D. Signed By: 08/07/242222 DD/ 19 TD/TT: Bookstore Clerk:THYROID ANTIBODIES Reviewed date:08/06/2024 08:05:59 PM Interpretation: Performing Lab: Notes/Report: [facility] ,Thyroid Peroxidase (TPO) Yt112-76 IU/mLThyroglobulin Antibody<1.00.0-0.9 IU/mL Thyroglobulin Antibody measured by Jair [place] Methodology It should be noted that the presence of thyroglobulin antibodies may not be pathogenic nor diagnostic, especially at very low levels. The assay setter off has found that four percent of individuals without evidence of thyroid disease or autoimmunity will have positive TgAb levels up to 4 IU/mL. Performed at: [address] [id number] Commercial [employer] Retrofit Architect: Lane Rivera PhD, Phone: [phone] Performing Lab:see noteLC - [facility] LBIRON Reviewed date:07/22/2024 03:46:53 PM Interpretation: Performing Lab: Notes/Report: [facility] ,Iron75.050.0-170.0 ug/dLPerforming Lab:see noteML - [facility] LBCBC AUTO DIFF Reviewed date:07/22/2024 03:46:53 PM Interpretation: Performing Lab: Notes/Report: [facility] ,White Blood Count4.04.0-11.0 10 3/uLRed Blood Count5.024.20-5.40 10 6/uL Xqkbyrxkfe37.912.0-16.0 g/rUOsofupgbqz64.236.0-48.0 %Mean Corpuscular Humtng65.1 81.0-99.0 fLMean Corpuscular Kmjrofdxfo65.726.7-34.0 pgMean Corpuscular HGB Conc 32.929.9-35.2 g/dLRed Cell Distribution Width12.611.0-15.0 %Platelet Fhcjk170 150-450 10 3/uLMean Platelet Fuxfad81.19.5-13.5 fLNeutrophils Percent Auto54.0 43.0-75.0 %Lymphocytes Percent Auto36.120.5-60.0 %Monocytes Percent Auto8.71.7- 12.0 %Eosinophils Percent Auto0.00.9-7.0 %Basophils Percent Auto1.20.2-2.0 % Immature Granulocytes Pct Auto0.00.0-0.5 %Neutrophils Absolute Auto2.21.4-6.5 10 3/uLLymphocytes Absolute Auto1.51.2-3.8 10 3/uLMonocytes Absolute Auto0.40.3-0.8 10 3/uLEosinophils Absolute Auto0.00.0-0.7 10 3/uLBasophils Absolute Auto0.10.0- 0.1 10 3/uLImmature Granulocytes Abs Auto0.000.00-0.03 10 3/uLPerforming Lab:see note - [facility] LBGLYCOHEMOGLOBIN A1C Reviewed date:07/22/2024 03:46:53 PM Interpretation: Performing Lab: Notes/Report: [facility] ,Glycohemoglobin A1C6.04.5-6.2 % ADA RECOMMENDED LIMIT 4.0 - 6.0 ADA THERAPEUTIC TARGET < 7.0 ACTION SUGGESTED > 7.0 Estimated Average Xpsuevh041Tgigdatzrk Lab:see note - [facility] LB VITAMIN D 25 [place] Reviewed date:07/22/2024 03:46:53 PM Interpretation: Performing Lab: Notes/Report: [facility] ,Vitamin D35.6 <20 ng/mL Vit D deficient 20-<30 ng/mL Vit D insufficient 30-100 ng/mL Vit D sufficient >100 ng/mL Potential Toxicity Performing Lab:see note - [facility] LBTSH Reviewed date:07/22/2024 03:46:53 PM Interpretation: Performing Lab: Notes/Report: [facility] ,Thyroid Stimulating Hormone<0.0070.358-3.740 uIU/mLPerforming Lab:see note - [facility] LBT4 Reviewed date:07/22/2024 03:46:53 PM Interpretation: Performing Lab: Notes/Report: [facility] ,T4 Thyroxine8.504.80-13.90 ug/dLPerforming Lab:see note - [facility] LBPROF 14(COMP METB) Reviewed date:07/22/2024 03:46:53 PM Interpretation: Performing Lab: Notes/Report: [facility] ,Zcdkku999383-904 mmol/LPotassium4.73.5-5.1 mmol/KVwzzkcus87953-998 mmol/LCarbon Nrvajqy86.821.0-32.0 mmol/LAnion Gap8.4Wziuocp75529-865 mg/dLBlood Urea Nitrogen 15.07.0-18.0 mg/dLCreatinine0.680.55-1.02 mg/dLEstimated GFR ( Jillian>60 >=60 mL/min/1.73m 2Estimated GFR (Non- Tiffanie>60>=60 mL/min/1.73m 2BUN Creatinine Ratio22.9Snxxlba2.08.5-10.1 mg/dLBilirubin Total0.40.2-1.0 mg/dL Aspartate Amino Ukdtrlgwuqr5354-07 U/LAlanine Wzcmbioneqxugivp0541-36 U/L Alkaline Doankriburg17926-063 U/LTotal Protein6.86.4-8.2 g/dLAlbumin Level3.5 3.4-5.0 g/dLGlobulin3.3Albumin Globulin Ratio1.1Performing Lab:see noteML - [facility] LBLIPID PROFILE Reviewed date:07/22/2024 03:46:53 PM Interpretation: Performing Lab: Notes/Report: [facility] ,Opqefsccgftyb67<=150 mg/kQUkivljnkpso912<=200 mg/dLHDL Xnxxphbpiah5826-57 mg/dL > or =60 mg/dl - LOW CARDIOVASCULAR RISK <40 mg/dl - HIGH CARDIOVASCULAR RISK LDL Cholesterol Qbbzbabikn68.0 <100 mg/dl OPTIMAL 100-129 mg/dl NEAR OR ABOVE OPTIMAL 130-159 mg/dl BORDERLINE HIGH 160-189 mg/dl HIGH >190 mg/dl VERY HIGH VLDL CHOLESTEROL4.4Chol HDL Ratio1.7 3.3 - 4.4 LOW RISK 4.4 - 7.1 AVERAGE RISK 7.1 - 11.0 MODERATE RISK >11.0 HIGH RISK Performing Lab:see noteML - [facility] LBFREE T3 Reviewed date:07/22/2024 03:46:53 PM Interpretation: Performing Lab: Notes/Report: [facility] ,Free T34.892.18-3.98 pg/mLPerforming Lab:see noteML - [facility] LB Reason For Referral No Information Medications Medication SIG (Take, Route, Frequency, Duration) Notes Start Date End Date Status Irbesartan 150 mg TAKE 1 TABLET DAILY ActiveMupirocin 2 %1 application Externally Twice a day; Duration: 5 days 5ActiveSimvastatin 20 mgTAKE 1 TABLET DAILY IN THE EVENINGActive Estradiol 0.05 MG/24HRTransdermal; Duration: 28 DaysActiveImitrex 100 MG1 tablet at least 2 hours between doses as needed Orally Twice a dayActivepredniSONE 20 MG2 tablets Orally Once a day; Duration: 5 days5ActiveValium 10 MG1 tablet as needed Orally once about 1 hour before procedure; Duration: 1 days 5Active Social History Tobacco Use: Social History Observation Description Date Details (start date - stop date) Never Smoker NA - NA Tobacco Use/Smoking Question Answer Notes Patient is a nonsmoker Alcohol Screen (Audit-C) Question Answer Notes Did you have a drink containing alcohol in the p ast year? Yes How often did you have 6 or more drinks on one occasion in the past year?Never (0 point)How many drinks did you have on a typical day when you were drinking in the past year?3 or 4 drinks (1 point)How often did you have a drink containing alcohol in the past year?Weekly (3 points)Qknyqh6InadvpfvedaaeeOmmggqpgDIQSO-C (Standard) Question Answer Notes Did you have a drink containing alcohol in the p ast year? Yes How often did you have a drink containing alcohol in the past year?Monthly or less (1 point)How many drinks did you have on a typical day when you were drinking in the past year?3 or 4 drinks (1 point)How often did you have six or more drinks on one occasion in the past year?2 to 3 times per week (3 points) Nffhhn1KekditzlmajmlcXrnyebjm Problems Problem Type SNOMED Code ICD Code Onset Dates Problem Status W/U Status Risk Notes Problem Chronic intractable migraine without aura (092159576625012) Chronic migraine without aura, intractable, with status migrainosus (G43.711) ActiveconfirmedProblemVertiginous syndrome (46988078)Vertiginous syndromes in diseases classified elsewhere, unspecified ear (H82.9)ActiveconfirmedProblem Alopecia areata (02433807)Other alopecia areata (L63.8)ActiveconfirmedProblem Sprain of calcaneofibular ligament (24981152)Sprain of calcaneofibular ligament of left ankle, initial encounter (S93.412A)ActiveconfirmedProblemOnychomycosis caused by dermatophyte (310964395)OM (onychomycosis) (B35.1)Activeconfirmed ProblemHyperlipidemia (02357065)Hyperlipidemia (E78.5)ActiveconfirmedProblem Asthma (351991431)Asthma (J45.909)ActiveconfirmedProblemCervical radiculopathy (71639874)Cervical radiculopathy (M54.12)ActiveconfirmedProblemHypertension (74520645)HTN (hypertension) (I10)ActiveconfirmedProblemAnxiety (79224343) Anxiety (F41.9)ActiveconfirmedProblemHypothyroid (63283730)Hypothyroid (E03.9) ActiveconfirmedProblemSleep apnea (29386792)Sleep apnea (G47.30)Activeconfirmed ProblemLumbar radiculopathy (942908224)Lumbar radiculopathy (M54.16)Active confirmedProblemThyroid nodule (801398904)Thyroid nodule (E04.1)Activeconfirmed ProblemAcute bronchitis (46500841)Acute bronchitis (J20.9)ActiveconfirmedProblem Well adult (241815696)Well adult (Z00.00)ActiveconfirmedProblemRadial styloid tenosynovitis (12340372)De Quervain's tenosynovitis (M65.4)Activeconfirmed ProblemMass of neck (731037993)Neck mass (R22.1)ActiveconfirmedProblem Generalized abdominal pain (897113500)Abdominal pain, generalized (R10.84)Active confirmedProblemStrep throat (79217588)Strep throat (J02.0)Activeconfirmed ProblemType II diabetes mellitus without complication (684678166)Diabetes mellitus type 2, noninsulin dependent (E11.9)ActiveconfirmedProblemRight lower quadrant pain (039325654)Abdominal pain, RLQ (R10.31)ActiveconfirmedProblem Migraine (61195421)Migraine, unspecified (G43.909)ActiveconfirmedProblemShoulder impingement syndrome (806615508)Shoulder impingement syndrome (M75.40)Active confirmedProblemInguinal hernia (421984385)Hernia, inguinal, right (K40.90) ActiveconfirmedProblemPain in limb (22683784)Pain, hand joint (M79.643)Active confirmedProblemContusion of hand (5647413)Contusion, hand (S60.229A)Active confirmedProblemMyalgia (75819404)Myalgia (M79.10)ActiveconfirmedProblemDisease caused by Severe acute respiratory syndrome coronavirus 2 (disorder) (132680205) COVID-19 virus infection (U07.1)ActiveconfirmedProblemLow back pain (379483365) Low back pain, unspecified (M54.50)Activeconfirmed Vital Signs Blood pressure diastolic 98 mm Hg 01/17/2025 Rusmrt61 in01/17/2025lood pressure apvpohfg068 mm Hg01/17/20253270Hqvczv544.6 lbs 01/17/2025BMI31.17 kg/m201/17/2025 Procedures Procedure Date Ordered Date Performed Result Body Sit e Biopsy, Fine Needle 09/26/2024 N/ABiopsy, Fine Uwgvki5810/03/2024N/A Encounters Encounter Location Date Provider Diagnosis [place] [address] [place] [address] 07/16/2024 Alexander Hoy Well adult Z00.00 an d Neck mass R22.1 [place] [address] [place] [address] 01/17/2025 Alexander Hoy Acute non-recurrent sinusitis, unspecified location J01.90 ; Nasal congestion R09.81 ; Headache R51.9 and Bloody nose R04.0 [place] [address] [place] [address] 07/22/2024 Alexander Rodriguezy Hypothyroid E03.[address] [address] 08/04/2024 Alexander Hoy Abnormal thyroid blo od test R79.89 [facility] [address] [facility] [address] 08/08/2024 Alexander Hoy [facility] [facility] [address] 08/09/2024[facility]Hypothyroid E03.9[facility] [facility] [address]/10/2024[facility] [address] [facility] [address]/02/2025Doug HoyNeck mass R22.1 [place] [address] [facility] [address] 10/03/2024Doug HoyThyroid nodule E04.1B[place] [address] [facility] [address]/[facility] [facility] [place] [address]/04/2024Doug HoyThyroid nodule E04.1B[place] [address] [facility] [address]/10/2024Doug HoyThyroid nodule E04.1[facility] [address] [facility] [address]/01/2025Doug HoLindsay [place] [address] [facility] [place] [address]/Doug Hoy Assessments Encounter Date Diagnosis (ICD Code) Assessment Notes Treatment Notes Treatment Clinical Notes Section Notes 07/16/2024 Well adult (ICD-10 - Z00.00) 07/16/2024Neck mass (ICD-10 - R22.1)5Acute non-recurrent sinusitis, unspecified location (ICD-10 - J01.90)Rest and drink more liquids, especially water. You may use a humidifier or vaporizer to help keep the drainage moist. Lrlw-ssq-nkmbevg Nasal Saline may help the stuffy and runny nose. Use Ibuprofen and or Tylenol as needed for fever, chills, body aches or pain. Children 5 years old should not be given skqj-bca-nskvqzo cough and cold medications such as guaifenesin and dextromethorphan. If you're over age 5, you may try adlv-ycc-zyraosd cold medications such as guaifenesin and dextromethorphan, or multi-symptom cold reliever such as Dayquil to help reduce the symptoms. Antibiotics have been prescribed. You should take these until completed and follow the directions. Antibiotics can sometimescause upset stomach, and in rare cases, serious allergic reactions or serious gastrointestinal problems. If you start having severe abdominal pain, severe vomiting, or bloody diarrhea, you should be reevaluated by your physician or urgent care immediately. Follow up with your Primary Care Provider or return to clinic if symptoms do not improve within 3-5 days07/22/2024Hypothyroid (ICD-10 - E03.9)08/04/2024bnormal thyroid blood test (ICD-10 - R79.89)08/09/2024Hypothyroid (ICD-10 - E03.9)09/26/2024Neck mass (ICD-10 - R22.1)10/03/2024Thyroid nodule (ICD-10 - E04.1)01/16/2025Thyroid nodule (ICD-10 - E04.1)01/22/2025Thyroid nodule (ICD-10 - E04.1)01/17/2025 Headache (ICD-10 - R51.9)01/17/2025Nasal congestion (ICD-10 - R09.81)01/17/2025 Bloody nose (ICD-10 - R04.0) Plan Of [...] (T4/TSH/FREE T3) 3 THYROID PANEL (T4/TSH/FREE T3) 5 THYROID PANEL (T4/TSH/FREE T3) 5 THYROID PANEL (T4/TSH/FREE T3) 5 THYROID PANEL (T4/TSH/FREE T3) 4 Lipid Panel 06/10/2023 US soft tissue head and neck 10/18/2023 US soft tissue head and neck 07/16/2024 CMP (COMP MET ALBA) w/eGFR CKD-EPI 2024 CBC WITH DIFF 07/16/2024 Insurance Providers Payer Name Payer Address Payer Phone Subscriber Number Group Number Insured Name Patient Relationship to Insured Coverage Start Date Coverage End Date [id number] ACC[employer] PPO PLUS LOCAL PLAN [address] [place] [phone] [id number] Barron Palmer Spouse - patient is the spouse of [...] J45.909 Anxiety F41.9 Surgical History Surgery Date(Month/Year) Total Hysterectomy Neck SurgeryC-Section x1Left Total Hip Rvsbkxvyeur68/16/2023
--- OUTSIDE RECORDS SUMMARY | 2025-02-26 07:49 | XMS_ITS | Patient Health Record ---
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 Yes How often did you have six or more drinks on one occasion in the past year?Less than monthly (1 point)How many drinks did you have on a typical day when you were drinking in the past year?1 or 2 drinks (0 point)How often did you have a drink containing alcohol in the past year?2 to 4 times a month (2 points) Problems Problem Type SNOMED Code ICD Code Onset Dates Problem Status W/U Status Risk Notes Problem 514197475 Aftercare follow ing surgery of the musculoskeletal system (Z47.89) [id number] status (Z98.1)Activeconfirmed Plan Of Treatment Pending Test Test Name Order Date XR SPINE CERVICAL 4 VIEWS 07/15/2023 Insurance Providers Payer Name Payer Address Payer Phone Subscriber Number Group Number Insured Name Patient Relationship to Insured Coverage Start Date Coverage End Date Gala SAMUELS [address] [place] [phone] [id number] ANA PALMER Self - patient is the insured Medical (General) History Medical History History ICD Code Bronchitis: Yes DRUG ALLERGIES: YesGastric Reflux: YesHigh Blood Pressure: YesHave you been seen by a dentist in the last year?: YesSurgical History Surgery Date(Month/Year) 2022 hip replacement 01/31/232021 hernia repair [id number] neck surgery 11/20202019 hysterectomy 02/2020
--- NOTE | 2025-02-26 07:57 | US_ITS ---
[address] [address] Patient Name: ANA PALMER MRN: [id number] date: 1970 Sex: F Assigned Patient Location: [place] Current Patient Location: Accession/Order Number: [id number] Exam Date: 02/26/2025 08:15 Report Date: 02/26/2025 13:44 At the request of: GINA GARZA MD Procedure: US biopsy thyroid US biopsy thyroid 02/26/2025 9:16 AM SIGNS AND SYMPTOMS: ^Thyroid Nodules INFORMED CONSENT: Reason for procedure was discussed with the patient. The procedure expectations risks benefits options and alternatives were discussed. All the questions were answered. The patient understood the results cannot be guaranteed. The procedure is indicated and risks were acceptable. Consent was obtained. PROCEDURE: A hypoechoic nodule in the interpolar region of the right thyroid lobe was visualized using grayscale sonographic imaging. The skin was marked in this location. The skin was prepped and draped in a sterile manner. 5 mL of lidocaine 1% without epinephrine were used for local anesthesia. A total of 5 fine needle aspirates were performed using 25-gauge needle. Specimens were given to pathology. The needles were removed and hemostasis was gained using manual pressure. The patient tolerated the procedure well. No immediate complications were detected. US/US biopsy thyroid IMPRESSION: Successful ultrasound-guided fine-needle aspiration of a hypoechoic nodule within the interpolar region of the right thyroid lobe as above. Impression dictated by: Reggie Vallejo M.D. 02/26/2025 1:44 PM Dictation Location[facility] Electronically authenticated by: [id number] Y Date: 02/26/2025 13:44
[2025-02-26 07:58] LABS: Platelet Count 261 10^3/uL (150-450)
[2025-02-26 08:08] LABS: INR 0.97; Prothrombin Time 10.3 sec (9.0-11.6)
[2025-02-26 08:15] VITALS: BP 151/99; PULSE 82; O2SAT 99
[2025-02-26] MEDS: LIDOCAINE HCL 2% 400 MG/20 ML MDV 7 ML INJ (09:00)
--- NOTE | 2025-02-26 10:17 | SUR.PREOP ---
01/25/25 Called pt and reviewed date, time, prep for procedure. Instructed pt to get labs prior to biopsy.
== END 2025-02-26 09:25 | disposition home or self-care (01) ==
LOC: US 07:46
PROVIDERS: Radiology Diagnostic Radiology; PCP Family Medicine; Visit Provider Family Medicine
DX: E04.2 Nontoxic multinodular goiter (principal)
CPT/HCPCS: 10005; 36415; 85049; 85610; 88112; 88172; 88173